=== PATIENT | male | born 1975 | race Caucasian/White ===

== ENCOUNTER 2022-11-24 00:24 | Emergency (ER) | payer SELFPAY ==
--- NOTE | 2022-11-24 00:49 | PC.NURSE ---
pt eloped from the er, uncooperative and anxious , gait steady
--- NOTE | 2022-11-24 00:55 | ED.ANXIETY ---
HPI - Anxiety General Chief Complaint: Anxiety Stated Complaint: Anxiety Time Seen by Provider: 11/24/22 00:55 Source: patient Mode of arrival: EMS History of Present Illness HPI narrative: 47-year-old male who presents via EMS with anxiety and distress regarding the loss of his service dog. He otherwise denies any other complaints such as fever, chills, SI/HI, GI or symptoms. Review of Systems Review of Systems: Pertinent positives and negatives as stated in HPI PMFSH Past Medical History Source: nursing notes reviewed Social History Social History Advance Directives: No Advance Directives Information Provided: No Physical Exam Vital Signs: Vital Signs: VITAL SIGNS: Reviewed. GENERAL: Well developed, well nourished, in no acute distress. HEAD: Normocephalic/atraumatic EYES: PERRLA, EOMI LUNGS: CTAB CARDIOVASCULAR: Regular rate and rhythm ABDOMEN: Soft, non-tender, non-distended with bowel sounds NEUROLOGIC: Alert and oriented x 4. Strength and sensation to light touch were grossly intact x 4. Medical Decision Making Medical Decision Making MDM Narrative: 47-year-old male presents with anxiety due to loss of his service animal. Patient wishes to go outside off campus since smoke a cigarette, he was informed that he would be unable to simply return to the emergency room and was offered a nicotine patch which he declined and stated that he was discharging himself. He has not had any SI/HI and otherwise appears to be ambulating without difficulty and no acute findings to suggest airway/breathing/cardio problems. Differential Diagnosis Please see the discussion above Discharge Plan Discharge Clinical Impression: Anxiety Patient Disposition: Elopement Interventions: ED Discharge Assessment Last Done: 11/24/22 00:52
== END 2022-11-24 01:01 | disposition left against medical advice (07) ==
PROVIDERS: Emergency Provider Student in an Organized Health Care Education/Training Program
DX: F41.1 Generalized anxiety disorder (principal)

== ENCOUNTER 2023-04-04 20:48 | Emergency (ER) | payer OTHER, SELFPAY ==
--- NOTE | 2023-04-04 21:19 | ED.ALCOHOL ---
HPI - Alcohol General Chief Complaint: ETOH/Substance Use Stated Complaint: etoh, calm, per ems Time Seen by Provider: 04/04/23 21:18 Source: EMS and police Mode of arrival: EMS Limitations: altered mental status History of Present Illness HPI narrative: according to EMS and police patient with agitation trying to hurt people and himself complaint: alcohol intoxication Last drink: Hours (ago) Related Data Allergies Allergy/AdvReac Type Severity Reaction Status Date / Time No Known Allergies Allergy Verified 04/04/23 21:31 Review of Systems Review of Systems: Yes Unobtainable due to mental status [facility], [facility] Social History Social History Advance Directives: No Advance Directives Information Provided: Yes Physical Exam ED Vital Signs: Vital Signs - 24 hr 04/04/23 21:31 04/04/23 23:43 04/05/23 01:43 Temperature 98.2 F Pulse Rate 84 84 97 Respiratory Rate 18 19 16 Blood Pressure 127/67 102/62 131/81 Pulse Oximetry 94 97 96 Oxygen Delivery Method Room Air Room Air Room Air 04/05/23 04:13 04/05/23 05:43 Temperature Pulse Rate 89 94 Respiratory Rate 16 15 Blood Pressure 126/83 115/70 Pulse Oximetry 96 96 Oxygen Delivery Method Room Air Room Air BMI result Body Mass Index 31.3 Const Other: agitated trying to punch staff and police and EMS Nutritional Appearance: average body habitus Limitations: altered mental status HENMT Head: Yes normal to inspection Ears: external ears normal General nose exam: Normal external nose present Mouth: Normal oral and palatal mucosa present and oropharynx normal Throat: Yes posterior oropharynx normal Eyes General: appearance normal, both eyes and all related structures Neck Neck: Yes normal visual inspection Chest Chest palpation & inspection: normal inspection of the chest Resp Auscultation: clear to auscultation bilaterally Cardio Jugular venous distension: no JVD Rate: regular rate Rhythm: regular rhythm Heart sounds: S1 normal heart sound present and S2 normal heart sound present GI Inspection: Yes normal to inspection Palpation (GI): Soft to palpation, nontender and No hepatosplenomegaly present Auscultation: normal bowel sounds General: Yes no CVA tenderness Back/Spine/Pelvis Back: no CVA tenderness Skin General skin exam: no rashes or lesions noted Neuro Cranial nerves: Yes CN's II-XII intact bilaterally Motor exam (neuro): 5/5 motor strength present throughout Extrem General: Yes normal to inspection Psych Other: very agitated Course Reevaluation(s) Reevaluation #1: still awaiting for patient to wake up Time: 07:29 Reevaluation #2: physician observation started at 7:30. patient needs time see if he capo up and is not voilent. Currently sleeping Time: 07:30 Medical Decision Making Differential Diagnosis Differential Diagnoses: The differential diagnosis associated with the presentation includes (polysubstance abuse, alcohol intoxication, bipolar disorder were all considered) Admission/Observation Consideration of admission/observation: Escalation of care including admission/observation considered (upon arrival this patient brought in by police and ems was considered for admission) Lab Data MDM Lab Attestation statement: I reviewed the patient's lab results. (Alcohol of 388 was noted) 04/04/23 22:10 04/04/23 22:10 Labs: Lab Results 04/04/23 04/04/23 Range/Units 22:10 22:10 WBC 8.0 (4.8-10.8) X10*3/uL RBC 4.28 L (4.60-5.80) X10*6/uL Hgb 14.3 (14.0-18.0) g/dl Hct 41.8 L (42.0-52.0) % MCV 97.7 (80.0-98.0) fL MCH 33.4 H (27.0-33.0) pg MCHC 34.2 (31.0-36.0) g/dl RDW 12.1 (11.0-16.0) % Plt Count 248 (160-400) X10*3/uL MPV 9.2 L (9.4-12.4) fL Immature Gran % (Auto) 0.2 (0.0-0.4) % Neut % (Auto) 71.3 (45-73) % Lymph % (Auto) 20.9 (20-40) % [place] % (Auto) 6.6 (2-11) % Eos % (Auto) 0.6 (0-4) % Baso % (Auto) 0.4 (0-2) % Lymph # (Auto) 1.7 (1.2-4.9) X10*3/uL [place] # (Auto) 0.5 (0.1-1.2) X10*3/uL Eos # (Auto) 0.1 (0.0-0.4) X10*3/uL Baso # (Auto) 0.0 (0.0-0.2) X10*3/uL Abs Immat Gran (auto) 0.02 (0.00-0.03) X10*3/uL Absolute Neuts (auto) 5.7 (2.0-8.3) x10*3/uL Absolute Nucleated RBC 0.000 (0.0-0.012) X10*3/uL Nucleated RBC % (auto) 0.0 (0.0-0.2) /100WBC Sodium 141 (135-145) mmol/L Potassium 3.5 (3.3-5.1) mmol/L Chloride 107 (96-108) mmol/L Carbon Dioxide 21 L (22-29) mmol/L Anion Gap 17 (12-20) BUN 19 H (9-16) mg/dL Creatinine 0.86 (0.5-1.4) mg/dL Estim Creat Clear Calc 110.3 Estimated GFR > 60 Random Glucose 110 (60-115) mg/dL Calcium 9.0 (8.4-10.2) mg/dL Total Bilirubin 0.3 (0.0-1.0) mg/dL AST 19 (5-37) U/L ALT 20 (0-40) U/L Alkaline Phosphatase 74 (39-117) U/L Total Protein 6.7 (6.5-8.0) g/dL Albumin 4.2 (3.5-5.0) g/dL Ethyl Alcohol 388 H* mg/dL Independent Historian Clinical information obtained from an independent historian. History obtained from or confirmed by: EMS and Other Tests considered The following testing was considered but not selected: A head Ct was considered but patient had no evidence of trauma Chronic Conditions Patient?s care impacted by: Other (alcoholism) Medications Administered Discontinued Medications Generic Name Dose Route Start Last Admin Trade Name Freq PRN Reason Stop Dose Admin Diphenhydramine HCl 25 mg 04/04/23 21:19 04/04/23 21:25 Diphenhydramine Hcl 50 Mg/Ml Vial IM 04/04/23 21:20 25 mg ONCE ONE Administration Haloperidol Lactate 10 mg 07/14/23 21:19 04/04/23 21:25 Haloperidol Lactate 5 Mg/Ml Vial IM 04/04/23 21:20 10 mg STAT STA Administration Lorazepam 2 mg 04/04/23 21:19 04/04/23 21:25 Lorazepam 2 Mg/Ml Vial IM 04/04/23 21:20 2 mg STAT STA Administration Discharge Plan Discharge Clinical Impression: Alcoholic intoxication, Agitation Patient Disposition: Still a Patient
[2023-04-04] MEDS: LORazepam 2 MG/ML VIAL IM (21:25)
[2023-04-04] MEDS: diphenhydrAMINE HCL 50 MG/ML VIAL 25 MG IM (21:25)
[2023-04-04] MEDS: Haloperidol Lactate 5 MG/ML VIAL 10 MG IM (21:25)
[2023-04-04 21:31] VITALS: BP 111/89; BP 127/67; PULSE 84; RESP 18; TEMP 36.8; O2SAT 94; BMI 31.3
[2023-04-04 22:18] LABS: MANUAL DIFF FLAG NO
[2023-04-04 22:19] LABS: Basophils Percent Auto 0.4 % (0-2); Eosinophils Absolute Auto 0.1 X10*3/uL (0.0-0.4); Eosinophils Percent Auto 0.6 % (0-4); Hematocrit 41.8 % (42.0-52.0); Hemoglobin 14.3 g/dl (14.0-18.0); Imm Gran Abs Auto 0.02 X10*3/uL (0.00-0.03); Imm Gran Pct Auto 0.2 % (0.0-0.4); Lymphocytes Absolute Auto 1.7 X10*3/uL (1.2-4.9); Lymphocytes Percent Auto 20.9 % (20-40); Mean Corpuscular HGB Conc 34.2 g/dl (31.0-36.0); Mean Corpuscular Hemoglobin 33.4 pg (27.0-33.0); Mean Corpuscular Volume 97.7 fL (80.0-98.0); Mean Platelet Volume 9.2 fL (9.4-12.4); Monocytes Absolute Auto 0.5 X10*3/uL (0.1-1.2); Monocytes Percent Auto 6.6 % (2-11); Neutrophils Absolute Auto 5.7 x10*3/uL (2.0-8.3); Neutrophils Percent Auto 71.3 % (45-73); Platelet Count 248 X10*3/uL (160-400); Red Blood Count 4.28 X10*6/uL (4.60-5.80); Red Cell Distribution Width 12.1 % (11.0-16.0)
[2023-04-04 22:33] LABS: Alanine Aminotransferase 20 U/L (0-40); Albumin Level 4.2 g/dL (3.5-5.0); Alkaline Phosphatase 74 U/L (39-117); Anion Gap 17 (12-20); Aspartate Amino Transferase 19 U/L (5-37); Bilirubin Total 0.3 mg/dL (0.0-1.0); Blood Urea Nitrogen 19 mg/dL (9-16); Carbon Dioxide 21 mmol/L (22-29); Chloride 107 mmol/L (96-108); Creatinine Clr Calc Pharmacy 110.3; Estimated Glomerular Filt Rate > 60; Glucose Random 110 mg/dL (60-115); Potassium 3.5 mmol/L (3.3-5.1); Sodium 141 mmol/L (135-145); Total Protein 6.7 g/dL (6.5-8.0)
--- NOTE | 2023-04-04 23:15 | PC.NURSE ---
this rn assumed care of pt from 22h bed @ 2300. pt found to be 85% RA. pt arousable to sternal rub. [employer] at bedside. pt placed on laboratory monitor, spo2 monitor. vss.
[2023-04-04 23:43] VITALS: BP 102/62; PULSE 84; RESP 19; O2SAT 97
[2023-04-05 01:43] VITALS: BP 131/81; PULSE 97; RESP 16; O2SAT 96
[2023-04-05 04:13] VITALS: BP 126/83; PULSE 89; RESP 16; O2SAT 96
[2023-04-05 05:43] VITALS: BP 115/70; PULSE 94; RESP 15; O2SAT 96
[2023-04-05 06:11] LABS: Ethanol 388 mg/dL
--- NOTE | 2023-04-05 06:46 | PC.NURSE ---
pt incontinent of urine. bed linens changed. pt remains in police custody. pt arousable to name
--- NOTE | 2023-04-05 06:54 | PC.NURSE ---
pt belongings remain at bedside. okay per fire extinguisher charger and pd at bedside. pt remains in ligature free hospital attire
--- NOTE | 2023-04-05 09:15 | PC.NURSE ---
Pt awaken, remains sleepy but awakes easily. Ambulated by this RN and unsteady on feet. Snacks given. [employer] at bedside. Radha DAVILA aware.
[2023-04-05 10:05] VITALS: BP 109/64; PULSE 99; RESP 18; TEMP 36.8; O2SAT 95
--- NOTE | 2023-04-05 11:05 | PC.NURSE ---
Pt ambulated for third time, now steady on feet.
== END 2023-04-05 11:25 | disposition home or self-care (01) ==
PROVIDERS: Emergency Provider Emergency Medicine
DX: F10.129 Alcohol abuse with intoxication, unspecified (principal); Y90.8 Blood alcohol level of 240 mg/100 ml or more; R45.1 Restlessness and agitation; Z79.899 Other long term (current) drug therapy
CPT/HCPCS: 36415; 80053; 80307; 85025; 96372; 99283; 99285; J1200; J2060

== ENCOUNTER 2024-08-25 16:53 | Emergency (ER) | payer OTHER, SELFPAY ==
[2024-08-25 16:58] VITALS: BP 163/97; PULSE 122; RESP 20; TEMP 37.7; O2SAT 96; BMI 29.0
--- NOTE | 2024-08-25 17:00 | PC.NURSE ---
called audelia rn for a bed for this patient because the statements about SI in triage where not clear, pt also appears intoxicated, pt did denied drinking today, no room in the pod at this time, pt was walked over to nurses station for request for the bed, pt attempting to walk out of the triage room x2 but redirected
--- NOTE | 2024-08-25 17:28 | ED.GENADULT ---
HPI - General Adult General Chief complaint: ETOH/Substance Use Stated complaint: Bleeding in left pinky Time Seen by Provider: 08/25/24 17:19 Source: patient, RN notes reviewed and old records reviewed Mode of arrival: ambulatory Limitations: other (Uncooperative) History of Present Illness ED Provider: Torin HPI narrative: Was asked to evaluate the patient as he was trying to leave the department shortly after arriving. He presents to triage complaining of wounds to his left 2nd and 5th fingers. He reports that he intentionally cut his fingers ?to honor my father who I disrespected. He admits to drinking alcohol The patient is demanding to leave because ?I got two Band-Aids and I am good now. ? I asked the patient directly if he had any thoughts of harming himself further and he reported ?negative. The patient is ambulating with a steady, even gait. He reports if discharge he will walk home He has no somatic complaints at this time He did allow me to remove the bandage to evaluate his finger wounds Related Data Allergies Allergy/AdvReac Type Severity Reaction Status Date / Time No Known Allergies Allergy Verified 08/25/24 17:06 Review of Systems Constitutional: Constitutional: Denies chills, Denies fever(s) and Denies headache(s) Eyes: Eyes: Denies blurry vision ENT: Denies headache(s) Cardiovascular: Cardiovascular: Denies chest pain and Denies dyspnea Respiratory: Respiratory: Denies cough and Denies dyspnea Integumentary/Breasts: Skin/Breast: Reports wounds Neurologic: Denies headache(s) Psychiatric: Psychiatric: Denies homicidal ideation and Denies suicidal ideation PMFSH Social History Social History Advance Directives: No Advance Directives Information Provided: No Do you have a plan to hurt others: No Plan Physical Exam ED Vital Signs: Vital Signs - 24 hr 08/25/24 16:58 Temperature 99.8 F Pulse Rate 122 H Respiratory Rate 20 Blood Pressure 163/97 H Pulse Oximetry 96 Oxygen Delivery Method Room Air BMI result Body Mass Index 29.0 Const General: healthy appearing, comfortable, no acute distress, alert and awake Nutritional Appearance: well nourished Orientation/consciousness: patient oriented x3 HENMT Head: Yes normocephalic and Yes atraumatic Eyes Eyelids: Yes eyelids normal Conjunctivae: conjunctivae normal Sclerae: sclerae normal Corneas: corneas normal Pupils: Equal, round and reactive pupils present EOM: EOMs intact bilaterally Neck Neck: Yes full ROM Resp Effort & Inspection: normal respiratory effort, able to speak in complete sentences and not labored Skin Other: Patient has a very small/superficial linear wound on the radial side of his left 2nd finger. This is less than 1 cm, not actively bleeding, it is barely visible. He has a similar very superficial, small, linear wound to the dorsal surface of the left 5th finger. Again, no active bleeding General skin exam: elasticity normal Neuro General: patient oriented x3 Cranial nerves: Yes Equal, round and reactive pupils present and Yes Bilaterally intact EOM present Cognition (Neuro): normal cognition Extrem Other: Moving all extremities well without any obvious deformities Course Course Course Narrative: This is an RME done by LOLA Roach: Additional HPI, ROS, PE not included below will be deferred to primary provider. 49 year old male presents after cutting himself with a knife told nurse he was not suicidal at the moment but he was a few minutes ago. He denies drinking alcohol but appears to be under the influence. No HI. Patient with very bizarre affect and tangential speech. Trying to run out of the triage room all of a sudden then coming back in. Appears to be responding to internal stimuli. Reached out to the behavioral health nurse unfortunately no room in the behavioral pod at this time. Charge nurse aware and place patient in bed 22 [address]. Providers in the back aware of patient's situation. Main ED provider to take over care. Medical Decision Making Medical Decision Making MDM Narrative: 49-year-old male presents for evaluation of reported wound to his left 2nd and 5th finger. He essentially has a paper cut to each finger, no deep wounds or lacerations, no active bleeding. The patient reports that he did this because he ?this honored his father. ? He reports that this was a [place] custom to regain honor. He reports that he has no further intent to harm himself in any way, he is not suicidal. He was requesting discharge and I do not see any reason to keep him against his will. The patient is ambulating appropriately, he is answering questions appropriately. Differential Diagnosis Differential Diagnoses: The differential diagnosis associated with the presentation includes Laceration Abrasion Wound Self-harm Discharge Plan Discharge Clinical Impression: Alcoholic intoxication Patient Disposition: Home, Self-Care Instructions: Abuse of Alcohol (ED) Additional Instructions: Your finger wounds do not need any closure Avoid excessive consumption of alcohol Return if you have any thoughts of harming herself or anybody else Print Language: [place] Islander
--- NOTE | 2024-08-25 17:50 | PC.NURSE ---
pt seen by provider, pt denied SI/HI at this time, provider feels pt is safe for discharge. lac to finger evaled. pt initially requesting blood work to show his child support officer but later elected to leave without blood work. ambulated out of ED with a steady gait, declined to wait for discharge paperwork.
[2024-08-25 17:51] VITALS: BP 163/97; PULSE 122; RESP 20; TEMP 37.7; O2SAT 96
--- OUTSIDE RECORDS SUMMARY | 2024-08-31 21:06 | XMS_ITS | Continuity of Care Document ---
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 It does not include entries that were removed or entered in error. Problem Status Onset Date Problem Type Date of Resolution Comments Source Asthma (SNOMED [place] 600974013) Active 014 Condition [facility] Left knee pain (SNOMED CT 349110203629333) Active 014 Condition Jul 14, 2024 Entered By: DARLENE REEVES Comment: vet has had two prior surgeries left knee/ likely signif DJD [facility] substance use disorders Active Condition DoD Patient Education Dietary Inactive Condition DoD nicotine dependence Active Condition Do[facility] alcohol dependence (alcoholism) Active Condition DoD Tuberculin PPD Nonspecific Reaction Without Active Tuberculosis Active Condition DoD visit for: services physical Inactive Condition DoD nicotine dependence continuous Active Condition DoD alcohol dependence with episodic drinking behavior Active Condition 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 No mass or lump detected to indicate feeder vessel. Present for at least 2 years with no change. 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 Rx Mrx with 1.5 pd BI OU. RTC if problems with glasses. Recommend wear glasses for reading to aid convergence. DoD astigmatism regular Active Condition DoD refractive error - myopia Active Condition glasses ordered with prism. Rx given. RTC if problems persist. DoD Need For Vaccination Against Td Inactive Condition DoD Need For Vaccination Hepatitis B Inactive Condition DoD Need For Vaccination Typhoid Inactive Condition DoD Patient Counseling: Inactive Condition Plan:1) Pt Educated about TB infection vs Active TB Dz2) Pt advised to f/u annually w/ preventive med. 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 sandy tx well DoD muscle spasm Active Condition DoD dermatomycosis tinea versicolor Active Condition DoD backache Inactive Condition DoD asthma mild intermittent Active Condition DoD wheezing [as a symptom] Active Condition 1. Prescription for albuterol inhaler p.r.n. was issued.2. Patient was given a peak flow meter to monitor his respiratory status. He was instructed in use and he was given a plan of action based on green, yellow and red indications on his peak flow met [facility] Blood Pressure Isolated Elevated Inactive Condition [facility] visit for: screening exam Inactive Condition [facility] Acute back pain - lumbar Active Condition [facility] [place] [facility] Alcohol abuse Active Condition Nov Entered By: KOLBY SCHWARZ Comment: Rehab x 2 [facility] Alcohol dependence Active Condition [facility] Asthma Active Condition [facility] Bipolar disorder Active Condition [facility] Bipolar II disorder Active Condition [facility] Bipolar II disorder, most recent episode hypomanic Active Condition [facility] Cannabis dependence Active Condition [facility] [place] [facility] Exposure to potentially hazardous substance Active Condition Nov 12, 2023 Entered By: TESS SMALLWOOD Comment: Original PORTIA Screen completed on 09/02/22 [facility] [place] [facility] Exposure to Potentially Hazardous Substance ([facility] [id number]) Active Condition [facility] Family history of malignant neoplasm of colon over age 50 Active Condition Jul 14, 2024 Entered By: DARLENE REEVES Comment: FH of colon cancer in Father, father alive age 77 in 2023 [facility] [place] [facility] Gastroesophageal reflux disease Active Condition [facility] HLD - Hyperlipidemia Active Condition [facility] Homeless Active Condition [facility] [place] [facility] HTN-Hypertension (SCT 27992672) Active Condition [facility] Hyperlipidemia (SCT 57050002) Active Condition [facility] Hypertension Active Condition Jul 14, 2024 Entered By: DARLENE REEVES Comment: vet resumed using amlodipine 5/ BP at home improving [facility] Inguinal hernia Active Condition Jun 09, 2024 Entered By: DARLENE REEVES Comment: vet had CT confirming left inguinal hernia February 2023 [facility] Lack of Housing (ICD-9-CM V60.0) Active Condition [facility]) Nicotine dependence Active Condition [facility] Pain in left knee (SNOMED CT [id number]) Active Condition Nov 27 8 Entered By: KOLBY SCHWARZ Comment: Arthroscopic surgeries x 2 [facility] Positive PPD Active Condition Sep 02, 2022 Entered By: FABRICIO PRINCE Comment: Status post 1 year of treatment with tb meds [facility] Schizoaffective disorder, bipolar type Active Condition [facility] Severe alcohol dependence Active Condition [facility] Tinea unguium Active Condition [facility] Depression Inactive Condition 08/27/2018 [facility] Diagnosis: ICD-10-CM L60.3 Nail dystrophy Active Diagnosis [facility] Diagnosis: ICD-10-CM F25.0 Schizoaffective disorder, bipolar type Active Diagnosis [facility] Diagnosis: ICD-10-CM I10 Essential (primary) hypertension Active Diagnosis [facility] Diagnosis: ICD-10-CM Z71.89 Other specified counseling Active Diagnosis [facility] Diagnosis: ICD-10-CM M25.562 Pain in left knee Active Diagnosis [facility] Diagnosis: ICD-10-CM M54.59 Other low back pain Active Diagnosis [facility] Diagnosis: ICD-10-CM F10.24 Alcohol dependence with alcohol-induced mood disorder Active Diagnosis [facility] Diagnosis: ICD-10-CM Z65.3 Problems related to other legal circumstances Active Diagnosis [facility] Diagnosis: ICD-10-CM Z46.0 Encounter for fit/adjst of spectacles and contact lenses Active Diagnosis [facility] [place] [facility] Diagnosis: ICD-10-CM H25.013 Cortical age-related cataract, bilateral Active Diagnosis [facility] UBALDO RANGEL [facility] Diagnosis: ICD-10-CM J45.998 Other asthma Active Diagnosis [facility] Diagnosis: ICD-10-CM Z59.01 Sheltered homelessness Active Diagnosis [facility] PHILIPN CHELSEAYARY [facility] Diagnosis: ICD-10-CM F12.20 Cannabis dependence, uncomplicated Active Diagnosis [facility] Diagnosis: ICD-10-CM F31.9 Bipolar disorder, unspecified Active Diagnosis [facility] Diagnosis: ICD-10-CM Z13.6 Encounter for screening for cardiovascular disorders Active Diagnosis [facility] Diagnosis: ICD-10-CM K40.91 Unilateral inguinal hernia, w/o obst or gangrene, recurrent Active Diagnosis [facility] Diagnosis: ICD-10-CM K45.8 Oth abdominal hernia without obstruction or gangrene Active Diagnosis [facility] Diagnosis: ICD-10-CM K08.9 Disorder of teeth and supporting structures, unspecified Active Diagnosis [facility] Medications Combined list of outpatient medications from Department of Defense and [facility] Affairs facilities.Medications provided include 1) outpatient medications from the last 15 months, and 2) patient-reported medications. Medication Details Route Status Patient Instructions Prescription Expires Prescription Number Last Dispense Date Ordering Provider Order Date Order Qty Source ACETAMINOPH EN 500MG TAB TAKE TWO TABLETS BY MOUTH TWICE DAILY NEEDED ORAL ACTIVE 06/10/2025 [id number] AMELIA HARTLEY 2023 [facility] ACETAMINOPH EN 500MG TAB TAKE TWO TABLETS BY MOUTH TWICE DAILY NEEDED ORAL DISCONT INUED 04/01/2024 [id number] 4 DESIRAE PEREZ 2022 60 [facility] [place] [facility] ALBUTEROL 90MCG/ACTUA T (CFC-F) INHL,ORAL,8 .5GM DOSE COUNTER INHALE 2 PUFFS BY MOUTH FOUR TIMES DAILY NEEDED RESPIR ATORY (INHAL ATION) ACTIVE 06/10/2025 [id number] AMELIA HARTLEY 2023 3 [facility] ALBUTEROL 90MCG/ACTUA T (CFC-F) INHL,ORAL,8 .5GM DOSE COUNTER INHALE 2 PUFFS BY MOUTH FOUR TIMES DAILY NEEDED FOR BRONCHOS PASM RESPIR ATORY (INHAL ATION) DISCONT INUED (EDIT) 06/19/2024 [id number] RA SARAY LOWRY 2022 3 [facility] AMLODIPINE BESYLATE 5MG TAB TAKE ONE TABLET BY MOUTH ONCE DAILY FOR BLOOD PRESSURE /HEART, DO NOT TAKE WITH GRAPEFRU IT JUICE ORAL ACTIVE 06/10/2025 [id number] 4 AMELIA HARTLEY 2023 90 [facility] INDOMETHACI N 50MG CAP TAKE ONE CAPSULE BY MOUTH TWICE DAILY NEEDED FOR GOUT ORAL ACTIVE 07/02/2025 [id number] 4 AMELIA HARTLEY 2023 60 [facility] LIDOCAINE 5% PATCH APPLY 1 PATCH TOPICALL Y ONCE DAILY FOR NERVE PAIN (LEAVE PATCH ON FOR 12 HOURS, THEN REMOVE PATCH) TOPICA L SUSPEND ED 07/29/2025 [id number] 4 AMELIA HARTLEY 2023 30 [facility] METHOCARBAM OL 750MG TAB TAKE ONE TABLET BY MOUTH THREE TIMES DAILY NEEDED ORAL 04/01/2024 [id number] 4 DESIRAE PEREZ 2022 45 [facility] MULTIVITAMI NS W/MINERALS CAP/TAB TAKE ONE CAP/TAB BY MOUTH ONCE DAILY ORAL ACTIVE 06/10/2025 [id number] 4 AMELIA HARTLEY 2023 100 [facility] OLANZAPINE 5MG TAB TAKE ONE TABLET BY MOUTH AT BEDTIME ORAL DISCONT INUED BY PRINCE R 11/19/2024 [id number] JAMES LONG MD 2023 30 [facility] OLANZAPINE 5MG TAB TAKE ONE TABLET BY MOUTH AT BEDTIME ORAL DISCONT INUED (EDIT) 08/08/2024 [id number] JAMES LONG MD 2022 30 [facility] OLANZAPINE 5MG TAB TAKE ONE TABLET BY MOUTH AT BEDTIME ORAL DISCONT INUED (EDIT) 07/17/2024 [id number] JAMES LONG MD 2022 30 [facility] OMEPRAZOLE 20MG CAP,EC TAKE 1 CAPSULE BY MOUTH EVERY MORNING 30 MINUTES BEFORE BREAKFAS T ORAL ACTIVE AMELIA HARTLEY 2023 [facility] QUETIAPINE FUMARATE 100MG TAB TAKE ONE TABLET BY MOUTH AT BEDTIME AND TAKE ONE TABLET AT BEDTIME NEEDED AND TAKE ONE TABLET AT BEDTIME NEEDED SCHIZOAF FECTIVE BIPOLAR/ SLEEP ORAL ACTIVE 07/29/2025 [id number] 4 JAMES LONG MD 2023 90 [facility] QUETIAPINE FUMARATE 100MG TAB TAKE ONE TABLET BY MOUTH AT BEDTIME AND TAKE ONE TABLET AT BEDTIME NEEDED AND TAKE ONE TABLET AT BEDTIME NEEDED SCHIZOAF FECTIVE BIPOLAR/ SLEEP ORAL DISCONT INUED (EDIT) 06/18/2025 [id number] JAMES LONG MD 2023 90 [facility] TRAZODONE HCL 100MG TAB TAKE ONE TABLET BY MOUTH AT BEDTIME AND TAKE ONE-HALF TABLET AT BEDTIME NEEDED SLEEP ORAL ACTIVE 07/29/2025 [id number] JAMES LONG MD 2023 45 [facility] TRAZODONE HCL 100MG TAB TAKE ONE TABLET BY MOUTH AT BEDTIME AND TAKE ONE-HALF TABLET AT BEDTIME NEEDED SLEEP ORAL DISCONT INUED (EDIT) 06/18/2025 [id number] 4 JAMES LONG MD 2023 45 [facility] [place] [facility] Allergies, Adverse Reactions, Alerts Combined list of allergies from Department of Defense and Veterans Affairs facilities. It does not include entries that were removed or entered in error. Substance Category Reaction Severity Reaction type Status Date Reported Comments Source CATS Propensity to adverse reaction (finding) active 3 [facility] CATS Propensity to adverse reaction (finding) Urticaria active [address] [facility] No Known Allergies Drug allergy (disorder) active 7 [place] TUBERCULIN, PURIFIED PROTEIN DERIVATIVE Propensity to adverse reactions to drug (finding) Eruption active [address] [facility] Immunizations Combined list of available immunizations from the Department of Defense and Veterans Affairs facilities. 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 Status Comments Source INFLUENZA, SPLIT VIRUS, TRIVALENT, PF 2023 RACHEL VALENCIA LEFT DELTO ID [id number] 140 complet ed [facility] [place] [facility] COVID-19 (MODERNA), MRNA, LNP-S, PF, 100 MCG/0.5ML DOSE OR 50 MCG/0.25ML DOSE 1 2021 NEMO ANDREW LEFT DELTO ID [id number] 207 complet ed [facility] [place] [facility] TDAP 2017 115 complet ed [facility] FLU,3 YRS (HISTORICAL) 2015 88 complet ed Site: Left Deltoid [facility] [place] [facility] PNEUMOCOCCAL POLYSACCHARID E PPV23 2015 33 complet ed [facility] [place] [facility] DTAP, UNSPECIFIED FORMULATION 2013 107 complet ed Site: Right Deltoid [facility] [place] [facility] FLU,3 YRS (HISTORICAL) 2013 88 complet ed Site: Right Deltoid [facility] [place] [facility] tetanus and diphtheria toxoids, adsorbed, preservative free, for adult use (2 Lf of tetanus toxoid and 2 Lf of diphtheria toxoid) 1 2006 UNKNOWN 09 Unknown (UNK) comple t ed tetanus and diphtheri a toxoids, adsorbed, preservat yinka free, for adult use (2 Lf of tetanus toxoid and 2 Lf of diphtheri a toxoid) DoD hepatitis B vaccine, adult dosage 2 2006 DIANA RACHEL [id number] Merck (MSD) complet ed hepatitis B vaccine, adult dosage DoD influenza virus vaccine, split virus (incl. purified surface antigen)-reti red CODE 0 2005 Unknown, Provider [id number] [employer] ([facility]) complet ed influenza virus vaccine, split virus (incl. purified surface antigen)- retired CODE DoD hepatitis B vaccine, adult dosage 1 2005 DIANA RACHEL [id number] Merck (MSD) complet ed hepatitis B vaccine, adult dosage DoD hepatitis B vaccine, adult dosage 1 2005 Unknown, Provider UNKNOWN 43 Unknown (UNK) complet ed hepatitis B vaccine, adult dosage DoD typhoid Vi capsular polysaccharid e vaccine 1 2005 MILAGRO SINGLETON [id number] Sanofi Pasteur ([facility]) complet ed typhoid Vi capsular polysacch aride vaccine DoD influenza virus vaccine, split virus (incl. purified surface antigen)-reti red CODE 1 2002 Unknown, Provider UNKNOWN 15 Unknown (UNK) complet ed influenza virus vaccine, split virus (incl. purified surface antigen)- retired CODE DoD influenza virus vaccine, split virus (incl. purified surface antigen)-reti red CODE 0 2000 Unknown, Provider UNKNOWN 15 Unknown (UNK) complet ed influenza virus vaccine, split virus (incl. purified surface antigen)- retired CODE DoD influenza virus vaccine, split virus (incl. purified surface antigen)-reti red CODE 1 1999 Unknown, Provider [id number] 15 Maida (ROSA) complet ed influenza virus vaccine, split virus (incl. purified surface antigen)- retired CODE DoD influenza virus vaccine, split virus (incl. purified surface antigen)-reti red CODE 0 1999 Unknown, Provider UNKNOWN 15 Unknown (UNK) complet ed influenza virus vaccine, split virus (incl. purified surface antigen)- retired CODE DoD influenza virus vaccine, split virus (incl. purified surface antigen)-reti red CODE 0 1998 Unknown, Provider UNKNOWN 15 Unknown (UNK) complet ed influenza virus vaccine, split virus (incl. purified surface antigen)- retired CODE DoD hepatitis A vaccine, adult dosage 2 1997 Unknown, Provider UNKNOWN 52 Unknown (UNK) complet ed hepatitis A vaccine, adult dosage DoD hepatitis A vaccine, adult dosage 2 1997 Unknown, Provider UNKNOWN 52 Unknown (UNK) complet ed hepatitis A vaccine, adult dosage DoD typhoid vaccine, parenteral, other than acetone-kille d, dried 0 1996 Unknown, Provider UNKNOWN 41 Unknown (UNK) complet ed typhoid vaccine, parentera l, other than acetone-k illed, dried DoD typhoid Vi capsular polysaccharid e vaccine 1 1996 Unknown, Provider UNKNOWN 101 Unknown (UNK) complet ed typhoid Vi capsular polysacch aride vaccine DoD trivalent poliovirus vaccine, live, oral 1 1996 Unknown, Provider UNKNOWN 02 Unknown (UNK) complet ed trivalent polioviru s vaccine, live, oral DoD measles, mumps and rubella virus vaccine 0 1996 Unknown, Provider UNKNOWN 03 Unknown (UNK) complet ed measles, mumps and rubella virus vaccine DoD tetanus and diphtheria toxoids, adsorbed, preservative free, for adult use (2 Lf of tetanus toxoid and 2 Lf of diphtheria toxoid) 0 1996 Unknown, Provider UNKNOWN 09 Unknown (UNK) complet ed tetanus and diphtheri a toxoids, adsorbed, preservat yinka free, for adult use (2 Lf of tetanus toxoid and 2 Lf of diphtheri a toxoid) DoD yellow fever vaccine 0 1996 Unknown, Provider UNKNOWN 37 Unknown (UNK) complet ed yellow fever vaccine DoD hepatitis A vaccine, adult dosage 1 1996 Unknown, Provider UNKNOWN 52 Unknown (UNK) complet ed hepatitis A vaccine, adult dosage DoD adenovirus vaccine, unspecified formulation 1 1996 Unknown, Provider UNKNOWN 82 Unknown (UNK) complet ed adenoviru s vaccine, unspecifi ed formulati on DoD Results Combined list of recent chemistry, hematology and other laboratory results from Department of Defense and Veterans Affairs, ranging from 15 months to all on record, depending upon the facility. Order Name Results Value Reference Range Date Interpretation Specimen Comments Source LIPID PANEL FASTING CHOLESTERO L [MASS/VOLU ME] IN SERUM OR PLASMA 251 mg/dL 07/06 H Specimen Type: SERUM No comment entered. Ordering Provider: SINA LONG MD Report Released Date/Time: Jun 17, 2024 02:14 PM Reporting Lab: [facility] [place] [facility] [address] [facility] [address] Performing Lab: [facility] [place] [facility] [address] [facility] [address] [facility] [place] [facility] LIPID PANEL FASTING TRIGLYCERI DE [MASS/VOLU ME] IN SERUM OR PLASMA 70 mg/dL 0 - 150 07/06 Specimen Type: SERUM No comment entered. Ordering Provider: SINA LONG MD Report Released Date/Time: Jun 17, 2024 02:14 PM Reporting Lab: [facility] [place] [address] [address] Performing Lab: [facility] [place] [address] [address] [facility] [place] [facility] LIPID PANEL FASTING CHOLESTERO L IN LDL [MASS/VOLU ME] IN SERUM OR PLASMA BY CALCELOYO N 171 mg/dL 0 - 129 07/06 H Specimen Type: SERUM No comment entered. Ordering Provider: SINA LONG MD Report Released Date/Time: Jun 17, 2024 02:14 PM Reporting Lab: [facility] [place] [address] [address] Performing Lab: [facility] [place] [address] [address] [facility] [place] [facility] LIPID PANEL FASTING CHOLESTERO L.TOTAL/CH OLESTEROL IN HDL [MASS RATIO] IN SERUM OR PLASMA 3.8 07/06 Specimen Type: SERUM No comment entered. Ordering Provider: SINA LONG MD Report Released Date/Time: Jun 17, 2024 02:14 PM Reporting Lab: [facility] [place] [address] [address] Performing Lab: [facility] TRN [facility] [address] [facility] [address] [facility] LIPID PANEL FASTING CHOLESTERO L IN HDL [MASS/VOLU ME] IN SERUM OR PLASMA 66 mg/dL 40 - 60 07/06 H Specimen Type: SERUM No comment entered. Ordering Provider: SINA LONG MD Report Released Date/Time: Jun 17, 2024 02:14 PM Reporting Lab: [facility] [address] [facility] [address] Performing Lab: [facility]ITALRL TRN [address] [address] [facility] HOSPITALRLAUREL [facility]ERN [facility]PITALUSE [facility] BASIC METABOLI C PANEL (non-fas ting) UREA NITROGEN [MASS/VOLU ME] IN SERUM OR PLASMA 19 mg/dL 7 - 25 07/06 Specimen Type: SERUM No comment entered. Ordering Provider: OPAL RAZO Report Released Date/Time: Jul 01, 2024 03:56 PM Reporting Lab: [facility]ITAL[facility] TRN [facility]ITALUSE[address] [address] Performing Lab: [facility]ITALRL TRN [facility]ITALUSE[address] [address] [facility]ITALRL [facility]N [facility] BASIC METABOLI C PANEL (non-fas ting) GLUCOSE [MASS/VOLU ME] IN SERUM OR PLASMA 90 mg/dL 65 - 100 07/06 Specimen Type: SERUM No comment entered. Ordering Provider: OPAL RAZO Report Released Date/Time: Jul 01, 2024 03:56 PM Reporting Lab: [facility]ITALRL TRN [facility]USE[address] [address] Performing Lab: [facility]ITALRL TRN [facility]ITALUSE[address] [address] [facility]OSPITALRLAUREL [facility]ERN [facility]ITALUSE [facility] BASIC METABOLI C PANEL (non-fas ting) SODIUM [MOLES/VOL UME] IN SERUM OR PLASMA 139 mmol/L 135 - 145 07/06 Specimen Type: SERUM No comment entered. Ordering Provider: OPAL RAZO Report Released Date/Time: Jul 01, 2024 03:56 PM Reporting Lab: [facility]ITALUSETS [address] [address] Performing Lab: [facility]ITAL[facility]ETS [address] [address] [facility] BASIC METABOLI C PANEL (non-fas ting) POTASSIUM [MOLES/VOL UME] IN SERUM OR PLASMA 4.8 mmol/L 3.5 - 5.0 07/06 Specimen Type: SERUM No comment entered. Ordering Provider: OPAL RAZO Report Released Date/Time: Jul 01, 2024 03:56 PM Reporting Lab: [facility]ITALUSETS [address] [address] Performing Lab: [facility]ITALUSE[address] [address] [facility]ITALRL WSTRN [facility]PITALUSE [facility] BASIC METABOLI C PANEL (non-fas ting) CHLORIDE [MOLES/VOL UME] IN SERUM OR PLASMA 104 mmol/L 100 - 110 07/06 Specimen Type: SERUM No comment entered. Ordering Provider: OPAL RAZO Report Released Date/Time: Jul 01, 2024 03:56 PM Reporting Lab: [facility] [address] Performing Lab: [facility]ITALUSETS [address] [address] [facility]ITALUSE [facility] BASIC METABOLI C PANEL (non-fas ting) CARBON DIOXIDE, TOTAL [MOLES/VOL UME] IN SERUM OR PLASMA 26 meq/L 20 - 30 07/06 Specimen Type: SERUM No comment entered. Ordering Provider: OPAL RAZO Report Released Date/Time: Jul 01, 2024 03:56 PM Reporting Lab: [facility] [address] Performing Lab: [facility] [place] [address] [place] [address] [facility]OSPITALRL TRN [facility]ITALUSE [facility] BASIC METABOLI C PANEL (non-fas ting) CREATININE [MASS/VOLU ME] IN SERUM OR PLASMA 1.04 mg/dL 0.50 - 1.40 07/06 Specimen Type: SERUM No comment entered. Ordering Provider: OPAL RAZO Report Released Date/Time: Jul 01, 2024 03:56 PM Reporting Lab: [facility]PITALRL TRN [facility]ITALUSED[facility] [address] [facility] [address] Performing Lab: [facility] [address] [facility] [address] [facility] HOSPITALRLAUREL [facility]ERN [facility]OSPITALUSE [facility]' HOSPITAL BASIC METABOLI C PANEL (non-fas ting) GLOMERULAR FILTRATION RATE/1.73 SQ M.PREDICTE D [VOLUME RATE/AREA] IN SERUM, PLASMA OR BLOOD BY CREATININE -BASED FORMULA (CKD-EPI 2020) 87 mL/min 60 07/06 Specimen Type: SERUM No comment entered. Ordering Provider: OPAL RAZO Report Released Date/Time: Jul 01, 2024 03:56 PM Reporting Lab: [facility]OSPITALRLAUREL [facility]ERN [address] [address] Performing Lab: [facility] HOSPITALRL [facility] [address] [address] [facility] CALCIUM CALCIUM [MASS/VOLU ME] IN SERUM OR PLASMA 9.8 mg/dL 8.5 - 10.2 07/06 Specimen Type: SERUM No comment entered. Ordering Provider: OPAL RAZO Report Released Date/Time: Jul 01, 2024 03:56 PM Reporting Lab: [facility] HOSPITALRLAUREL [facility]ENTERN [facility]PITALUSE[address] [address] Performing Lab: [facility] HOSPITALRLAUREL [facility]ENTERN [facility]OSPITALUSE[address] [address] [facility] CBC AND DIFF (AUTO) LEUKOCYTES [#/VOLUME] IN BLOOD BY AUTOMATED COUNT 8.69 10*3/uL 4.50 - 11.00 07/06 Specimen Type: BLOOD No comment entered. Ordering Provider: OPAL RAZO Report Released Date/Time: Jul 01, 2024 03:56 PM Reporting Lab: [facility] [place] [facility] [address] [facility] [address] Performing Lab: [facility] [place] [facility] [address] [facility] [address] [place] [facility] [place] [place] [facility] CBC AND DIFF (AUTO) ERYTHROCYT ES [#/VOLUME] IN BLOOD BY AUTOMATED COUNT 5.01 10*6/uL 4.23 - 5.66 07/06 Specimen Type: BLOOD No comment entered. Ordering Provider: OPAL RAZO Report Released Date/Time: Jul 01, 2024 03:56 PM Reporting Lab: [facility] [place] [address] [address] Performing Lab: [facility] [place] [facility] [address] [facility] [address] [place] [facility] [place] [facility] CBC AND DIFF (AUTO) HEMOGLOBIN [MASS/VOLU ME] IN BLOOD 16.3 g/dL 12.8 - 17 07/06 Specimen Type: BLOOD No comment entered. Ordering Provider: OPAL RAZO Report Released Date/Time: Jul 01, 2024 03:56 PM Reporting Lab: [facility] [place] [address] [address] Performing Lab: [facility] [place] [facility] [address] [facility] [address] [facility] [place] [facility] CBC AND DIFF (AUTO) HEMATOCRIT [VOLUME FRACTION] OF BLOOD BY AUTOMATED COUNT 47.3 39.2 - 50.4 07/06 Specimen Type: BLOOD No comment entered. Ordering Provider: OPAL RAZO Report Released Date/Time: Jul 01, 2024 03:56 PM Reporting Lab: [facility] [place] [address] [address] Performing Lab: [facility] [place] [address] [address] [facility] [place] [facility] CBC AND DIFF (AUTO) MCV [ENTITIC VOLUME] BY AUTOMATED COUNT 94.4 fL 82 - 99 07/06 Specimen Type: BLOOD No comment entered. Ordering Provider: OPAL RAZO Report Released Date/Time: Jul 01, 2024 03:56 PM Reporting Lab: [facility] [place] [facility] [address] [facility] [address] Performing Lab: [facility] [place] [facility] [address] [facility] [address] [facility] [place] [facility] CBC AND DIFF (AUTO) MCHC [MASS/VOLU ME] BY AUTOMATED COUNT 34.5 g/dL 30.8 - 35.1 07/06 Specimen Type: BLOOD No comment entered. Ordering Provider: OPAL RAZO Report Released Date/Time: Jul 01, 2024 03:56 PM Reporting Lab: [facility] [place] [place] [address] [address] Performing Lab: [facility] [place] [address] [address] [facility] [place] [facility] CBC AND DIFF (AUTO) PLATELETS [#/VOLUME] IN BLOOD BY AUTOMATED COUNT 282 10*3/uL 140 - 360 07/06 Specimen Type: BLOOD No comment entered. Ordering Provider: OPAL RAZO Report Released Date/Time: Jul 01, 2024 03:56 PM Reporting Lab: [facility] [place] [address] [address] Performing Lab: [facility] [place] [place] [address] [address] [facility] [place] [facility] CBC AND DIFF (AUTO) ERYTHROCYT E DISTRIBUTI ON WIDTH [RATIO] BY AUTOMATED COUNT 12.7 12.0 - 16.0 07/06 Specimen Type: BLOOD No comment entered. Ordering Provider: OPAL RAZO Report Released Date/Time: Jul 01, 2024 03:56 PM Reporting Lab: [facility] [place] [facility] [address] [facility] [address] Performing Lab: [facility] [place] [facility] [address] [facility] [address] [facility] [place] [facility] CBC AND DIFF (AUTO) MONOCYTES [#/VOLUME] IN BLOOD BY AUTOMATED COUNT 0.49 10*3/uL 0.30 - 1.10 07/06 Specimen Type: BLOOD No comment entered. Ordering Provider: OPAL RAZO Report Released Date/Time: Jul 01, 2024 03:56 PM Reporting Lab: [facility] [facility] [address] [facility] [address] Performing Lab: [facility] [place] [facility] [address] [facility] [address] [facility] [place] [facility] CBC AND DIFF (AUTO) MCH [ENTITIC MASS] BY AUTOMATED COUNT 32.5 pg 26.2 - 32.6 07/06 Specimen Type: BLOOD No comment entered. Ordering Provider: OPAL RAZO Report Released Date/Time: Jul 01, 2024 03:56 PM Reporting Lab: [facility] [place] [address] [address] Performing Lab: [facility] [place] [facility] [address] [facility] [address] [facility] [place] [facility] CBC AND DIFF (AUTO) NEUTROPHIL S/100 LEUKOCYTES IN BLOOD BY AUTOMATED COUNT 70.3 43.7 - 75.8 07/06 Specimen Type: BLOOD No comment entered. Ordering Provider: OPAL RAZO Report Released Date/Time: Jul 01, 2024 03:56 PM Reporting Lab: [facility] [place] [facility] [address] [facility] [address] Performing Lab: [facility] [place] [facility] [address] [facility] [address] [facility] [place] [facility] CBC AND DIFF (AUTO) LYMPHOCYTE S/100 LEUKOCYTES IN BLOOD BY AUTOMATED COUNT 22.3 14.0 - 42.3 07/06 Specimen Type: BLOOD No comment entered. Ordering Provider: OPAL RAZO Report Released Date/Time: Jul 01, 2024 03:56 PM Reporting Lab: [facility] [place] [facility] [address] [facility] [address] Performing Lab: [facility] [place] [facility] [address] [facility] [address] [facility] [place] [facility] CBC AND DIFF (AUTO) MONOCYTES/ 100 LEUKOCYTES IN BLOOD BY AUTOMATED COUNT 5.6 5.1 - 13.7 07/06 Specimen Type: BLOOD No comment entered. Ordering Provider: OPAL RAZO Report Released Date/Time: Jul 01, 2024 03:56 PM Reporting Lab: [facility] [place] [facility] [address] [facility] [address] Performing Lab: [facility] [place] [facility] [address] [facility] [address] [facility] [place] [facility] CBC AND DIFF (AUTO) EOSINOPHIL S/100 LEUKOCYTES IN BLOOD BY AUTOMATED COUNT 0.6 0.4 - 6.8 07/06 Specimen Type: BLOOD No comment entered. Ordering Provider: OPAL RAZO Report Released Date/Time: Jul 01, 2024 03:56 PM Reporting Lab: [facility] [place] [facility] [address] [facility] [address] Performing Lab: [facility] [place] [facility] [address] [facility] [address] [facility] [place] [facility] CBC AND DIFF (AUTO) BASOPHILS/ 100 LEUKOCYTES IN BLOOD BY AUTOMATED COUNT 0.7 0.1 - 2.0 07/06 Specimen Type: BLOOD No comment entered. Ordering Provider: OPAL RAZO Report Released Date/Time: Jul 01, 2024 03:56 PM Reporting Lab: [facility] [place] [facility] [address] [facility] [address] Performing Lab: [facility] [place] [facility] [address] [facility] [address] [facility] [place] [facility] CBC AND DIFF (AUTO) NEUTROPHIL S [#/VOLUME] IN BLOOD BY AUTOMATED COUNT 6.11 10*3/uL 2.20 - 7.60 07/06 Specimen Type: BLOOD No comment entered. Ordering Provider: OPAL RAZO Report Released Date/Time: Jul 01, 2024 03:56 PM Reporting Lab: [facility] HOSPITALRENCOMPASS HEALTH REHABILITATION HOSPITAL OF DOTHANTRN [facility] HOSPITALUSETS [address] [address] Performing Lab: [facility] [address] [address] [facility]PITALUSE TS [facility] CBC AND DIFF (AUTO) LYMPHOCYTE S [#/VOLUME] IN BLOOD BY AUTOMATED COUNT 1.94 10*3/uL 1.00 - 3.20 07/06 Specimen Type: BLOOD No comment entered. Ordering Provider: OPAL RAZO Report Released Date/Time: Jul 01, 2024 03:56 PM Reporting Lab: [facility] HOSPITALRL WSTRN [facility]PITALUSETS [address] [address] Performing Lab: [facility]PITALUSETS [address] [phone] [place], [place] [address]RL WSTRN [facility]OSPITALUSE TS [facility] CBC AND DIFF (AUTO) EOSINOPHIL S [#/VOLUME] IN BLOOD BY AUTOMATED COUNT 0.05 10*3/uL 0.03 - 0.44 07/06 Specimen Type: BLOOD No comment entered. Ordering Provider: OPAL RAZO Report Released Date/Time: Jul 01, 2024 03:56 PM Reporting Lab: [facility] [place] [facility] [address] [facility] [address] Performing Lab: [facility]PITALUSETS [address] [address] [facility] [place] [facility] CBC AND DIFF (AUTO) BASOPHILS [#/VOLUME] IN BLOOD BY AUTOMATED COUNT 0.06 10*3/uL 0.01 - 0.13 07/06 Specimen Type: BLOOD No comment entered. Ordering Provider: OPAL RAZO Report Released Date/Time: Jul 01, 2024 03:56 PM Reporting Lab: [facility] [place] [facility] [address] [facility] [address] Performing Lab: [facility] [place] [facility] [address] [facility] [address] [facility] [place] [facility] CBC AND DIFF (AUTO) IMMATURE GRANULOCYT ES/100 LEUKOCYTES IN BLOOD BY AUTOMATED COUNT 0.5 0.0 - 0.7 07/06 Specimen Type: BLOOD No comment entered. Ordering Provider: OPAL RAZO Report Released Date/Time: Jul 01, 2024 03:56 PM Reporting Lab: [facility] [place] [address] [address] Performing Lab: [facility] [place] [address] [address] [facility] [place] [facility] CBC AND DIFF (AUTO) IMMATURE GRANULOCYT ES [#/VOLUME] IN BLOOD 0.04 10*3/uL 0.00 - 0.06 07/06 Specimen Type: BLOOD No comment entered. Ordering Provider: OPAL RAZO Report Released Date/Time: Jul 01, 2024 03:56 PM Reporting Lab: [facility] [place] [address] [address] Performing Lab: [facility] [address] [address] [facility] HOSPITALRL WSTRN [facility]OSPITALCHUSE TS [facility] CBC AND DIFF (AUTO) NRBC % 0.0 0.0 - 0.0 07/06 Specimen Type: BLOOD No comment entered. Ordering Provider: OPAL RAZO Report Released Date/Time: Jul 01, 2024 03:56 PM Reporting Lab: [facility] [place] [address] [address] Performing Lab: [facility] [place] [address] [address] [place] [facility] [place] [facility] CBC AND DIFF (AUTO) NRBC, ABS 0.00 10*3/uL 0.00 - 0.00 07/06 Specimen Type: BLOOD No comment entered. Ordering Provider: OPAL RAZO Report Released Date/Time: Jul 01, 2024 03:56 PM Reporting Lab: [facility] HOSPITALRL WSTRN [facility]ITALUSED[facility] [address] [facility] [address] Performing Lab: [place] [facility] [facility]ITALUSED[facility] [address] [facility] [address] [facility] HOSPITALRLAUREL [facility]ENTERN [facility] HOSPITALUSE [facility] HEMOGLOB IN A1C PANEL HEMOGLOBIN A1C/HEMOGL OBIN.TOTAL IN BLOOD BY HPLC 4.9 4.0 - 5.6 07/06 Specimen Type: BLOOD Comment: Values obtained from A1C measurement s can vary. For atypical A1C assays, a reported value of 7.0 could actually be between 6.72 and 7.28 if measured by a reference method. A reported value of 9.0 could actually be between 8.73 and 9.27. Ref: http://www. ngsp.org/[place] Pdata.asp Ordering Provider: OPAL RAZO Report Released Date/Time: Jul 01, 2024 03:56 PM Reporting Lab: [facility] HOSPITALRL TRN [facility]OSPITALUSE[address] [address] Performing Lab: [facility] HOSPITALRL TRN [facility]OSPITALUSE[address] [address] [facility] HOSPITALRLAUREL [facility]ERN [facility] LIVER FUNCTION PROTEIN [MASS/VOLU ME] IN SERUM OR PLASMA 7.4 g/dL 6.0 - 8.3 07/06 Specimen Type: SERUM No comment entered. Ordering Provider: OPAL RAZO Report Released Date/Time: Jul 01, 2024 03:56 PM Reporting Lab: [facility] HOSPITALRL WSTRN [facility]OSPITALUSETS [address] [address] Performing Lab: [facility] HOSPITALRL WSTRN [facility]PITALUSE[address] [address] [facility] HOSPITALRLAUREL [facility]ENTERN [facility] HOSPITALUSE [facility] LIVER FUNCTION ALBUMIN [MASS/VOLU ME] IN SERUM OR PLASMA 4.4 g/dL 3.5 - 5.0 07/06 Specimen Type: SERUM No comment entered. Ordering Provider: OPAL RAZO Report Released Date/Time: Jul 01, 2024 03:56 PM Reporting Lab: [facility] [place] [facility] [address] [facility] [address] Performing Lab: [facility] [place] [facility] [address] [facility] [address] [facility] [place] [place] [facility] LIVER FUNCTION ALKALINE PHOSPHATAS E [ENZYMATIC ACTIVITY/V OLUME] IN SERUM OR PLASMA 95 U/L 40 - 150 07/06 Specimen Type: SERUM No comment entered. Ordering Provider: OPAL RAZO Report Released Date/Time: Jul 01, 2024 03:56 PM Reporting Lab: [facility] [place] [facility] [address] [facility] [address] Performing Lab: [facility] [place] [facility] [address] [facility] [address] [facility] [place] [place] [facility] LIVER FUNCTION ASPARTATE AMINOTRANS FERASE [ENZYMATIC ACTIVITY/V OLUME] IN SERUM OR PLASMA 21 U/L 5 - 34 07/06 Specimen Type: SERUM No comment entered. Ordering Provider: OPAL RAZO Report Released Date/Time: Jul 01, 2024 03:56 PM Reporting Lab: [facility] [facility] [address] [facility] [address] Performing Lab: [facility] [place] [place] [facility] [address] [facility] [address] [facility] [place] [facility] LIVER FUNCTION ALANINE AMINOTRANS FERASE [ENZYMATIC ACTIVITY/V OLUME] IN SERUM OR PLASMA 34 U/L 07/06 Specimen Type: SERUM No comment entered. Ordering Provider: OPAL RAZO Report Released Date/Time: Jul 01, 2024 03:56 PM Reporting Lab: [facility] [place] [facility] [address] [facility] [address] Performing Lab: [facility] [place] [facility] [address] [facility] [address] [facility] [place] [facility] LIVER FUNCTION BILIRUBIN. TOTAL [MASS/VOLU ME] IN SERUM OR PLASMA 0.4 mg/dL 0.2 - 1.2 07/06 Specimen Type: SERUM No comment entered. Ordering Provider: OPAL RAZO Report Released Date/Time: Jul 01, 2024 03:56 PM Reporting Lab: [address] [address] Performing Lab: [address] [address] [facility] T-SPOT TB PANEL MYCOBACTER IUM TUBERCULOS IS STIMULATED GAMMA INTERFERON [INTERPRET ATION] IN BLOOD QUALITATIV E Negative 07/10 Specimen Type: BLOOD Comment: A negative test result does not exclude the possibility of exposure to or infection with Mycobacteri um tuberculosi s (M. tuberculosi s). Patients with recent exposure to TB infected individuals exhibiting a negative T-SPOT.TB result should be considered for retesting within 6 weeks or if other relevant clinical symptoms indicate. Results from T-SPOT.TB testing must be used in conjunction with each individual' s epidemiolog ical history, current medical status, and results of other diagnostic evaluations . The T-SPOT.TB test is qualitative and results are reported as positive, borderline, or negative, given that the test controls perform as expected. In line with the Centers for Disease Control and Prevention' s 2010 recommendat ion to report quantitativ e measurement s alongside the qualitative result, the laboratory provides spot counts for information al purposes only. The T-SPOT.TB test should not be interpreted as a quantitativ e test. For additional information , please refer to http://educ ation.Theracos .com/faq/FA Q215 (This link is being provided for information al/ educational purposes only.) Test Performed by [employer] [facility], [facility], [address] [place] [address] Mal Freeman M.D., Ph.D., Director of Laboratorie s , CLIA [id number] TEST PERFORMED AT: , Ordering Provider: OPAL RAZO Report Released Date/Time: Jul 10, 2023 10:22 AM Reporting Lab: [address] [place] [address] Performing Lab: [facility] [address] [address] [facility] T-SPOT TB PANEL MYCOBACTER IUM TUBERCULOS IS STIMULATED GAMMA INTERFERON ESAT-6 AG SPOT COUNT [#] IN BLOOD 0 07/10 Specimen Type: BLOOD Comment: A negative test result does not exclude the possibility of exposure to or infection with Mycobacteri um tuberculosi s (M. tuberculosi s). Patients with recent exposure to TB infected individuals exhibiting a negative T-SPOT.TB result should be considered for retesting within 6 weeks or if other relevant clinical symptoms indicate. Results from T-SPOT.TB testing must be used in conjunction with each individual' s epidemiolog ical history, current medical status, and results of other diagnostic evaluations . The T-SPOT.TB test is qualitative and results are reported as positive, borderline, or negative, given that the test controls perform as expected. In line with the Centers for Disease Control and Prevention' s 2010 recommendat ion to report quantitativ e measurement s alongside the qualitative result, the laboratory provides spot counts for information al purposes only. The T-SPOT.TB test should not be interpreted as a quantitativ e test. For additional information , please refer to http://educ ation.Theracos .com/faq/FA Q215 (This link is being provided for information al/ educational purposes only.) Test Performed by [facility], [employer], [address] [place] [address] Mal Freeman M.D., Ph.D., Director of Laboratorie s , CLIA [id number] TEST PERFORMED AT: , Ordering Provider: OPAL RAZO Report Released Date/Time: Jul 10, 2023 10:22 AM Reporting Lab: [facility] [address] [facility] [address] Performing Lab: [facility] [address] [address] [facility] T-SPOT TB PANEL MYCOBACTER IUM TUBERCULOS IS STIMULATED GAMMA INTERFERON CFP10 AG SPOT COUNT [#] IN BLOOD 2 07/10 Specimen Type: BLOOD Comment: A negative test result does not exclude the possibility of exposure to or infection with Mycobacteri um tuberculosi s (M. tuberculosi s). Patients with recent exposure to TB infected individuals exhibiting a negative T-SPOT.TB result should be considered for retesting within 6 weeks or if other relevant clinical symptoms indicate. Results from T-SPOT.TB testing must be used in conjunction with each individual' s epidemiolog ical history, current medical status, and results of other diagnostic evaluations . The T-SPOT.TB test is qualitative and results are reported as positive, borderline, or negative, given that the test controls perform as expected. In line with the Centers for Disease Control and Prevention' s 2010 recommendat ion to report quantitativ e measurement s alongside the qualitative result, the laboratory provides spot counts for information al purposes only. The T-SPOT.TB test should not be interpreted as a quantitativ e test. For additional information , please refer to http://educ ation.Theracos .com/faq/FA Q215 (This link is being provided for information al/ educational purposes only.) Test Performed by [employer], [employer] [facility], [address] [place] [address] Mal Freeman M.D., Ph.D., Director of Laboratorie s , CLIA [id number] TEST PERFORMED AT: , Ordering Provider: OPAL RAZO Report Released Date/Time: Jul 10, 2023 10:22 AM Reporting Lab: [facility] [address] [facility] [address] Performing Lab: [facility] [address] [address] [facility] T-SPOT TB PANEL MITOGEN STIMULATED GAMMA INTERFERON POSITIVE CONTROL SPOT COUNT [#] IN BLOOD Passed 07/10 Specimen Type: BLOOD Comment: A negative test result does not exclude the possibility of exposure to or infection with Mycobacteri um tuberculosi s (M. tuberculosi s). Patients with recent exposure to TB infected individuals exhibiting a negative T-SPOT.TB result should be considered for retesting within 6 weeks or if other relevant clinical symptoms indicate. Results from T-SPOT.TB testing must be used in conjunction with each individual' s epidemiolog ical history, current medical status, and results of other diagnostic evaluations . The T-SPOT.TB test is qualitative and results are reported as positive, borderline, or negative, given that the test controls perform as expected. In line with the Centers for Disease Control and Prevention' s 2010 recommendat ion to report quantitativ e measurement s alongside the qualitative result, the laboratory provides spot counts for information al purposes only. The T-SPOT.TB test should not be interpreted as a quantitativ e test. For additional information , please refer to http://educ ation.Theracos .iogyn/faq/FA Q215 (This link is being provided for information al/ educational purposes only.) Test Performed by [facility]iumPrice, [employer] [facility], [address] [place] [address] Mal Freeman M.D., Ph.D., Director of Laboratorie s , CLIA [id number] TEST PERFORMED AT: , Ordering Provider: OPAL RAZO Report Released Date/Time: Jul 10, 2023 10:22 AM Reporting Lab: [facility] [address] [facility] [address] Performing Lab: [facility] [address] [address] [facility] T-SPOT TB PANEL GAMMA INTERFERON NEGATIVE CONTROL SPOT COUNT [#] IN BLOOD Passed 07/10 Specimen Type: BLOOD Comment: A negative test result does not exclude the possibility of exposure to or infection with Mycobacteri um tuberculosi s (M. tuberculosi s). Patients with recent exposure to TB infected individuals exhibiting a negative T-SPOT.TB result should be considered for retesting within 6 weeks or if other relevant clinical symptoms indicate. Results from T-SPOT.TB testing must be used in conjunction with each individual' s epidemiolog ical history, current medical status, and results of other diagnostic evaluations . The T-SPOT.TB test is qualitative and results are reported as positive, borderline, or negative, given that the test controls perform as expected. In line with the Centers for Disease Control and Prevention' s 2010 recommendat ion to report quantitativ e measurement s alongside the qualitative result, the laboratory provides spot counts for information al purposes only. The T-SPOT.TB test should not be interpreted as a quantitativ e test. For additional information , please refer to http://educ ation.Theracos .iogyn/faq/FA Q215 (This link is being provided for information al/ educational purposes only.) Test Performed by [employer], [employer] [facility], [address] [place] [address] Mal Freeman M.D., Ph.D., Director of Laboratorie s , CLIA [id number] TEST PERFORMED AT: , Ordering Provider: OPAL RAZO Report Released Date/Time: Jul 10, 2023 10:22 AM Reporting Lab: [address] [address] Performing Lab: [place] [id number] LIVER FUNCTION PROTEIN [MASS/VOLU ME] IN SERUM OR PLASMA 6.7 g/dL 6.0 - 8.3 03/31 Specimen Type: SERUM No comment entered. Ordering Provider: JULES PEREZ Report Released Date/Time: Mar 30, 2023 12:31 PM Reporting Lab: [address] [address] Performing Lab: [address] [address] [facility] LIVER FUNCTION ALBUMIN [MASS/VOLU ME] IN SERUM OR PLASMA 4.1 g/dL 3.5 - 5.0 03/31 Specimen Type: SERUM No comment entered. Ordering Provider: JULES PEREZ Report Released Date/Time: Mar 30, 2023 12:31 PM Reporting Lab: [facility] [place] [facility] [address] [facility] [address] Performing Lab: [facility] [place] [place] [facility] [address] [facility] [address] [facility] [place] [facility] LIVER FUNCTION ALKALINE PHOSPHATAS E [ENZYMATIC ACTIVITY/V OLUME] IN SERUM OR PLASMA 72 U/L 40 - 150 03/31 Specimen Type: SERUM No comment entered. Ordering Provider: JULES PEREZ Report Released Date/Time: Mar 30, 2023 12:31 PM Reporting Lab: [facility] [place] [facility] [address] [facility] [address] Performing Lab: [facility] [place] [place] [facility] [address] [facility] [address] [facility] LIVER FUNCTION ASPARTATE AMINOTRANS FERASE [ENZYMATIC ACTIVITY/V OLUME] IN SERUM OR PLASMA 11 U/L 5 - 34 03/31 Specimen Type: SERUM No comment entered. Ordering Provider: JULES PEREZ Report Released Date/Time: Mar 30, 2023 12:31 PM Reporting Lab: [facility] [place] [facility] [address] [facility] [address] Performing Lab: [facility] [place] [facility] [address] [facility] [address] [facility] LIVER FUNCTION ALANINE AMINOTRANS FERASE [ENZYMATIC ACTIVITY/V OLUME] IN SERUM OR PLASMA 19 U/L 03/31 Specimen Type: SERUM No comment entered. Ordering Provider: JULES PEREZ Report Released Date/Time: Mar 30, 2023 12:31 PM Reporting Lab: [facility] [place] [facility] [address] [facility] [address] Performing Lab: [facility] [place] [facility] [address] [facility] [address] [facility] LIVER FUNCTION BILIRUBIN. TOTAL [MASS/VOLU ME] IN SERUM OR PLASMA 0.4 mg/dL 0.2 - 1.2 03/31 Specimen Type: SERUM No comment entered. Ordering Provider: JULES PEREZ Report Released Date/Time: Mar 30, 2023 12:31 PM Reporting Lab: [facility] [place] [address] [address] Performing Lab: [facility] [place] [facility] [address] [facility] [address] [facility] [place] [facility] AMPHETAM SHERIE SCREEN PANEL AMPHETAMIN ES [PRESENCE] IN URINE NONE-DET ECTED 03/26 Specimen Type: URINE Comment: Urine with Cr <5 is diluted or substituted . Cr between 5 and 20 is very dilute. Urine with SG of 1.001 or less is diluted or substituted . SG of 1.003 or less is very dilute. Urine with a pH <3 or >11 has been adulterated and is unsuitable for testing by our current method. Urine with pH between 3 and 4 OR 10 and 11 may have been adulterated . Ordering Provider: JULES PEREZ Report Released Date/Time: Mar 26, 2023 08:40 AM Reporting Lab: [facility] [place] [address] [address] Performing Lab: [facility] [place] [address] [address] [facility] DOTHANTRN [place] TS [facility] AMPHETAM SHERIE SCREEN PANEL PH OF URINE 6.9 [pH] 4 - 10 03/26 Specimen Type: URINE Comment: Urine with Cr <5 is diluted or substituted . Cr between 5 and 20 is very dilute. Urine with SG of 1.001 or less is diluted or substituted . SG of 1.003 or less is very dilute. Urine with a pH <3 or >11 has been adulterated and is unsuitable for testing by our current method. Urine with pH between 3 and 4 OR 10 and 11 may have been adulterated . Ordering Provider: JULES PEREZ Report Released Date/Time: Mar 26, 2023 08:40 AM Reporting Lab: [facility] [place] [address] [address] Performing Lab: [facility] [address] [address] [facility]N [place] [facility] AMPHETAM SHERIE SCREEN PANEL CREATININE [MASS/VOLU ME] IN URINE 106.21 mg/dL 03/26 Specimen Type: URINE Comment: Urine with Cr <5 is diluted or substituted . Cr between 5 and 20 is very dilute. Urine with SG of 1.001 or less is diluted or substituted . SG of 1.003 or less is very dilute. Urine with a pH <3 or >11 has been adulterated and is unsuitable for testing by our current method. Urine with pH between 3 and 4 OR 10 and 11 may have been adulterated . Ordering Provider: JULES PEREZ Report Released Date/Time: Mar 26, 2023 08:40 AM Reporting Lab: [facility]USED[facility] [address] [facility] [address] Performing Lab: [address] [address] [facility] AMPHETAM SHERIE SCREEN PANEL SPECIFIC GRAVITY OF URINE 1.019 1.003 - 1.020 03/26 Specimen Type: URINE Comment: Urine with Cr <5 is diluted or substituted . Cr between 5 and 20 is very dilute. Urine with SG of 1.001 or less is diluted or substituted . SG of 1.003 or less is very dilute. Urine with a pH <3 or >11 has been adulterated and is unsuitable for testing by our current method. Urine with pH between 3 and 4 OR 10 and 11 may have been adulterated . Ordering Provider: JULES PEREZ Report Released Date/Time: Mar 26, 2023 08:40 AM Reporting Lab: [facility] MASSTira WirelessUSETS [facility] [address] [facility] [address] Performing Lab: [facility]USED[facility] [address] [facility] [address] [facility]USE [facility] BENZODIA ZEPINES SCREEN PANEL BENZODIAZE PINES [PRESENCE] IN URINE BY SCREEN METHOD NONE-DET ECTED 03/26 Specimen Type: URINE Comment: Urine with Cr <5 is diluted or substituted . Cr between 5 and 20 is very dilute. Urine with SG of 1.001 or less is diluted or substituted . SG of 1.003 or less is very dilute. Urine with a pH <3 or >11 has been adulterated and is unsuitable for testing by our current method. Urine with pH between 3 and 4 OR 10 and 11 may have been adulterated . Ordering Provider: JULES PEREZ Report Released Date/Time: Mar 26, 2023 08:40 AM Reporting Lab: [facility] [place] [facility] [address] [facility] [address] Performing Lab: [facility] [place] [address] [address] [facility]ITALRENCOMPASS [facility] DOTHANTRN M[place] [facility] BENZODIA ZEPINES SCREEN PANEL PH OF URINE 6.9 [pH] 4 - 10 03/26 Specimen Type: URINE Comment: Urine with Cr <5 is diluted or substituted . Cr between 5 and 20 is very dilute. Urine with SG of 1.001 or less is diluted or substituted . SG of 1.003 or less is very dilute. Urine with a pH <3 or >11 has been adulterated and is unsuitable for testing by our current method. Urine with pH between 3 and 4 OR 10 and 11 may have been adulterated . Ordering Provider: JULES PEREZ Report Released Date/Time: Mar 26, 2023 08:40 AM Reporting Lab: [facility] [place]N [place] [address] [address] Performing Lab: [facility] [place] [address] [address] [facility]PITALUSE TS [facility] BENZODIA ZEPINES SCREEN PANEL CREATININE [MASS/VOLU ME] IN URINE 106.21 mg/dL 03/26 Specimen Type: URINE Comment: Urine with Cr <5 is diluted or substituted . Cr between 5 and 20 is very dilute. Urine with SG of 1.001 or less is diluted or substituted . SG of 1.003 or less is very dilute. Urine with a pH <3 or >11 has been adulterated and is unsuitable for testing by our current method. Urine with pH between 3 and 4 OR 10 and 11 may have been adulterated . Ordering Provider: JULES PEREZ Report Released Date/Time: Mar 26, 2023 08:40 AM Reporting Lab: [facility] [place] [address] [address] Performing Lab: [facility] [place] [facility] [address] [facility] [address] [facility] [place] [facility] BENZODIA ZEPINES SCREEN PANEL SPECIFIC GRAVITY OF URINE 1.019 1.003 - 1.020 03/26 Specimen Type: URINE Comment: Urine with Cr <5 is diluted or substituted . Cr between 5 and 20 is very dilute. Urine with SG of 1.001 or less is diluted or substituted . SG of 1.003 or less is very dilute. Urine with a pH <3 or >11 has been adulterated and is unsuitable for testing by our current method. Urine with pH between 3 and 4 OR 10 and 11 may have been adulterated . Ordering Provider: JULES PEREZ Report Released Date/Time: Mar 26, 2023 08:40 AM Reporting Lab: [facility] [place] [facility] [address] [facility] [address] Performing Lab: [facility] [place] [facility] [address] [facility] [address] [facility] [place] [facility] Vital Signs Combined list of inpatient and outpatient Vital Signs from Department of Defense and Veterans Affairs, ranging from 12 months to all on record, depending upon the facility. Vital Sign Value Date Comments Source SYSTOLIC BLOOD PRESSURE 148 08/10/2024 10:08:37 [facility] [place] [facility] DIASTOLIC BLOOD PRESSURE 76 08/10/2024 10:08:37 [facility] [place] [facility] PULSE OXIMETRY 97 08/10/2024 10:08:37 [facility] [place] [facility] TEMPERATURE 98.4 08/10/2024 10:08:37 [facility] [place] [facility] PULSE 91 08/10/2024 10:08:37 [facility] [place] [facility] RESPIRATION 18 08/10/2024 10:08:37 [facility] [place] [facility] SYSTOLIC BLOOD PRESSURE 145 07/14/2024 10:41:25 [facility] [place] [facility] DIASTOLIC BLOOD PRESSURE 84 07/14/2024 10:41:25 [facility] [place] [facility] PULSE OXIMETRY 97 07/14/2024 10:41:25 [facility] [place] [facility] TEMPERATURE 98 07/14/2024 10:41:25 [facility] [place] [facility] PULSE 90 07/14/2024 10:41:25 [facility] [place] [facility] RESPIRATION 19 07/14/2024 10:41:25 [facility] [place] [facility] SYSTOLIC BLOOD PRESSURE 135 06/09/2024 13:32:44 [facility] [place] [facility] DIASTOLIC BLOOD PRESSURE 92 06/09/2024 13:32:44 [facility] [place] [facility] PULSE OXIMETRY 97 06/09/2024 13:32:44 [facility] [place] [facility] PULSE 82 06/09/2024 13:32:44 [facility] [place] [facility] RESPIRATION 20 06/09/2024 13:32:44 [facility] [place] [facility] Encounters Combined list of: 1) Encounters from Department of Veterans Affairs facilities going back up to thelast 18 months. 2) Encounters from the Department of Defense facilities going back up to 280 months. Location Location Details Encounter Type Encounter Number Reason For Visit Attending Provider ADM Date DC Date Status [facility]) [id number] SUITABI DERICK MILLER T 08/30 Released w/o Limitations [facility] OUTPAT[facility] [id number] ad needs ref to pulm for asthma testing TAMI FRIAS 09/04 [facility]ased w/o Limitations [facility]) OUTPATIENT [id number] pulmona ry consult per DERICK Cat T 09/05 Released w/o Limitations [facility] ub[facility]) [facility] OUTPATIENT [id number] bp check TANVI VINSON 09/27 Released w/o Limitations [facility](S ubase Immed Care) [facility] Immed Care) TELE CONSULT [id number] PT require s consult to pulmono logy for asthma evaluat ion DERICK CHAPMAN T 10/01 [facility] ub[facility] Immed Care) [facility]Joellen merton Pul[facility]olo [facility] OUTPATIENT [id number] wheezin g [as a symptom ] GREGORIO_NIDIA CASPER S 10/29 Released with Work/Duty Limitations [facility](B remerto n Pulmono logy) [facility]([facility]) OUTPATIENT [id number] 30YO/FU ON ASTHMA DERICK CHAPMAN T 11/04 Released w/o Limitations [facility] [place](Z ZFamily Medicin e) Formerly [facility]([facility]) OUTPATIENT [id number] AD Rash on back x 1-2mo VALDO ALTMAN 02/19 Released w/o Limitations [facility](Z ZFamily Medicin e) Formerly [facility](B Chiroprac tic Cln) OUTPATIENT [id number] BACKACH E BHATTI, SPRING N 02/28 Released w/o Limitations [facility](B Chiropr actic Cln) Formerly [facility](B Chiroprac tic Cln) OUTPATIENT [id number] f/u upper back pain BHATTI, SPRING N 03/03 Released w/o Limitations [facility](B Chiropr actic Cln) [facility]ly [facility](B Chiroprac tic Cln) OUTPATIENT [id number] f/u upper back pain BHATTI, SPRING N 03/05 Released w/o Limitations [facility](B Chiropr actic Cln) [facility](B Chiroprac tic Cln) OUTPATIENT [id number] f.u per pt BHATTI, SPRING N 03/14 Released w/o Limitations [facility](B Chiropr actic Cln) [facility](B Chiroprac tic Cln) OUTPATIENT [id number] f.u back per pt BHATTI, SPRING N 03/17 Released w/o Limitations [facility](B Chiropr actic Cln) [facility](B Chiroprac tic Cln) OUTPATIENT [id number] LBP BHATTI, SPRING N 03/19 Released w/o Limitations [facility] [place](B Chiropr actic Cln) [facility](Sub ase Patient Ed) OUTPATIENT [id number] PPD intervi ew DAO MATTHEWS S 04/22 Released w/o Limitations [facility](S ubase Patient Ed) [facility](Sub ase Immunizat ions) OUTPATIENT [id number] typhoid DAO MATTHEWS 04/22 Released w/o Limitations [facility](S ubase Immuniz ations) [facility](Sub ase Immunizat ions) OUTPATIENT [id number] hep b DAO MATTHEWS 05/08 Released w/o Limitations [facility](S ubase Immuniz ations) [facility](Sub ase Immunizat ions) OUTPATIENT [id number] HBV#[id number] DAO MATTHEWS 12/03 Released w/o Limitations [facility](S ubase Immuniz ations) [facility](Sub ase Immunizat ions) OUTPATIENT [id number] TD BERYL AMADOR 12/04 Released w/o Limitations [facility](S ubase Immuniz ations) Former[facility](Sub ase Optometry Clinic) OUTPATIENT [id number] AD Eye check KEN GARCIA 01/08 Released w/o Limitations [facility](S ubase Optomet ry Clinic) [facility]([facility] Pre[facility] Med Clinic) OUTPATIENT [id number] Annual Follow- up for TB Screeni CHARISSA Arizmendi 02/23 Released w/o Limitations [facility](B remerto n Prev Med Clinic) [facility](Sub ase Occupatio [facility]) OUTPATIENT [id number] KEMI Taylor 02/23 Released w/o Limitations [facility] [place](S ubase [facility]) [facility](SD Nutrition ) OUTPATIENT [id number] SAW WRIGHT 03/19 Released w/o Limitations [facility](S D Nutriti on) [facility] [place] [facility] OFFICE O/P EST SF 10-19 MIN [id number] Diagnos is: ICD-10- CM F25.0 Schizoa ffectiv e disorde r, bipolar type
ZAHRAMAYRA MARISABEL S 03/01 [facility] [place] [place] [facility] [place] [facility] OFFICE O/P EST SF 10-19 MIN [id number] Diagnos is: ICD-10- CM F25.0 Schizoa ffectiv e disorde r, bipolar type
ZAHRAMAYRA MARISABEL S 03/02 [facility] [place] [place] [facility] [place] [facility] [id number] Diagnos is: ICD-10- CM F10.24 Alcohol depende nce with alcohol -induce d mood disorde r
REINALDO RCEANDRIA 03/03 [facility] [place] [facility] [place] [facility] OFF[facility] O/P EST SF 10-19 MIN [id number] Diagnos is: ICD-10- CM F25.0 Schizoa ffectiv e disorde r, bipolar type
BROWNVINHMAYRA MARISABEL S 03/03 [facility] [place] [facility] [place] [facility] SBSQ HOSP IP/OBS MODERATE 35 [id number] Diagnos is: ICD-10- CM F12.20 Cannabi s depende nce, uncompl icated< br/> JULES PEREZ 03/04 [facility] [place] [place] [facility] [place] [facility] THERAPEUTI C ACTIVITIES [id number] Diagnos is: ICD-10- CM F25.0 Schizoa ffectiv e disorde r, bipolar type
BUFFY MALAVE DA T 03/04 [facility] [place] [facility] [place] [facility] Inpatient Encounter [id number] 03/04 [facility] [place] [place] [facility] [place] [facility] SBSQ HOSP IP/OBS MODERATE 35 [id number] Diagnos is: ICD-10- CM F25.0 Schizoa ffectiv e disorde r, bipolar type
JULES PEREZ 03/05 [facility] [place] [place] [facility] [place] [facility] THERAPEUTI C ACTIVITIES [id number] Diagnos is: ICD-10- CM F25.0 Schizoa ffectiv e disorde r, bipolar type
BUFFY MALAVE DA T 03/05 [facility] [place] [place] [facility] [place] [facility] CASE MANAGEMENT [id number] Diagnos is: ICD-10- CM F25.0 Schizoa ffectiv e disorde r, bipolar type
SU PETTIT N 03/05 [facility] [place] [place] [facility] [place] [facility] SBSQ HOSP IP/OBS MODERATE 35 [id number] Diagnos is: ICD-10- CM F25.0 Schizoa ffectiv e disorde r, bipolar type
JULES PEREZ 03/06 [facility] [place] [place] [facility] [place] [facility] CASE MANAGEMENT [id number] Diagnos is: ICD-10- CM F25.0 Schizoa ffectiv e disorde r, bipolar type
SU PETTIT N 03/06 [facility] [place] [place] [facility] ELECT[facility] DIOGRAM REPORT [id number] Diagnos is: ICD-10- CM Z13.6 Encount er for screeni ng for cardiov ascular disorde rs
RYAN HINOJOSA 03/06 [place] [facility] [place] [facility] ELECTROCAR DIOGRAM TRACING [id number] MEDARDO PARRISH 03/06 [facility] [place] [place] [facility] [place] [facility] THERAPEUTI C ACTIVITIES [id number] Diagnos is: ICD-10- CM F25.0 Schizoa ffectiv e disorde r, bipolar type
BUFFY MALAVE 03/06 [facility] [place] [place] [facility] [place] [facility] INTRAORAL PERIAPICAL FIRST [id number] Diagnos is: ICD-10- CM K08.9 Disorde r of teeth and support ing structu res, unspeci fied
ARIANA SMITH 03/07 [facility] [place] [place] [facility] [place] [facility] SBSQ HOSP IP/OBS MODERATE 35 [id number] Diagnos is: ICD-10- CM F12.20 Cannabi s depende nce, uncompl icated< br/> CHRISJULES Brian 03/07 [facility] [place] [place] [facility] CASE MANAGEMENT [id number] Diagnos is: ICD-10- CM F25.0 Schizoa ffectiv e disorde r, bipolar type
SU PETTIT N N 03/07 [facility] [place] [place] SBSQ HOSP IP/OBS SF/LOW 25 [id number] Diagnos is: ICD-10- CM F10.24 Alcohol depende nce with alcohol -induce d mood disorde r
Yanni LONG MD 03/08 [facility] [place] [place] SBSQ HOSP IP/OBS SF/LOW 25 [id number] Diagnos is: ICD-10- CM F10.24 Alcohol depende nce with alcohol -induce d mood disorde r
Yanni LONG MD 03/09 [facility] [place] [place] SBSQ HOSP IP/OBS SF/LOW 25 [id number] Diagnos is: ICD-10- CM F10.24 Alcohol depende nce with alcohol -induce d mood disorde r
Yanni LONG MD 03/10 [facility] [place] [place] [facility] CASE MANAGEMENT [id number] Diagnos is: ICD-10- CM F25.0 Schizoa ffectiv e disorde r, bipolar type
SU PETTIT N N 03/11 [facility] [place] [place] SBSQ HOSP IP/OBS MODERATE 35 [id number] Diagnos is: ICD-10- CM F25.0 Schizoa ffectiv e disorde r, bipolar type
JULES PEREZ 03/11 [facility] [place] [place] [facility] [place] [facility] SBSQ HOSP IP/OBS MODERATE 35 [id number] Diagnos is: ICD-10- CM F25.0 Schizoa ffectiv e disorde r, bipolar type
MIRJULES MILES 03/12 [facility] [place] [place] [facility] [place] [facility] CASE MANAGEMENT [id number] Diagnos is: ICD-10- CM F25.0 Schizoa ffectiv e disorde r, bipolar type
SU PETTIT N N 03/12 [facility] [place] [facility] [place] [place] [facility] SBSQ HOSP IP/OBS MODERATE 35 [id number] Diagnos is: ICD-10- CM F25.0 Schizoa ffectiv e disorde r, bipolar type
JULES PEREZ 03/13 [facility] [place] [facility] [place] [facility] 1ST HOSP IP/OBS SF/LOW 40 [id number] Diagnos is: ICD-10- CM K45.8 Oth abdomin al hernia without obstruc tion or gangren e
VALERIE WATT E 03/13 [facility] CASE MANAGEMENT [id number] Diagnos is: ICD-10- CM F25.0 Schizoa ffectiv e disorde r, bipolar type
SU PETTIT N 03/13 [facility] IP/OBS MODERATE 35 [id number] Diagnos is: ICD-10- CM F12.20 Cannabi s depende nce, uncompl icated< br/> JULES PEREZ 03/14 [facility] CASE MANAGEMENT [id number] Diagnos is: ICD-10- CM F25.0 Schizoa ffectiv e disorde r, bipolar type
SU PETTIT N 03/14 [facility] IP/OBS SF/LOW 25 [id number] Diagnos is: ICD-10- CM F25.0 Schizoa ffectiv e disorde r, bipolar type
Yanni LONG MD 03/15 [facility] IP/OBS SF/LOW 25 [id number] Diagnos is: ICD-10- CM F10.24 Alcohol depende nce with alcohol -induce d mood disorde r
Yanni LONG MD 03/16 [facility] IP/OBS MODERATE 35 [id number] Diagnos is: ICD-10- CM F12.20 Cannabi s depende nce, uncompl icated< br/> JULES PEREZ 03/17 [facility] CASE MANAGEMENT [id number] Diagnos is: ICD-10- CM F25.0 Schizoa ffectiv e disorde r, bipolar type
HODAN,SU N N 03/17 [facility] Inpatient Encounter [id number] 03/17 [facility] SBSQ HOSP IP/OBS MODERATE 35 [id number] Diagnos is: ICD-10- CM F12.20 Cannabi s depende nce, uncompl icated< br/> MIRJULES MILES M 03/18 [facility] CASE MANAGEMENT [id number] Diagnos is: ICD-10- CM F25.0 Schizoa ffectiv e disorde r, bipolar type
SU PETTIT N N 03/18 [facility] GROUP PSYCHOTHER APY [id number] [id number] Diagnos is: ICD-10- CM F25.0 Schizoa ffectiv e disorde r, bipolar type
REINALDO BAANDRIA Addison 03/18 [facility] SBSQ HOSP IP/OBS MODERATE 35 [id number] [id number] Diagnos is: ICD-10- CM F25.0 Schizoa ffectiv e disorde r, bipolar type
ADELSO LOMBARDO Z 03/18 [facility] SBSQ HOSP IP/OBS MODERATE 35 [id number] [id number] Diagnos is: ICD-10- CM F25.0 Schizoa ffectiv e disorde r, bipolar type
MIROT,JULES M 03/19 [facility] ELECTROCAR DIOGRAM TRACING [id number] DAVID MERIDA 03/19 [facility] CASE MANAGEMENT [id number] Diagnos is: ICD-10- CM F25.0 Schizoa ffectiv e disorde r, bipolar type
HODANSU N N 03/19 [facility] Inpatient Encounter [id number] Diagnos is: ICD-10- CM K40.91 Unilate ral inguina l hernia, w/o obst or gangren e, recurre nt
HARMAN LEAL S 03/19 [facility] SBSQ HOSP IP/OBS MODERATE 35 [id number] [id number] Diagnos is: ICD-10- CM F10.24 Alcohol depende nce with alcohol -induce d mood disorde r
JULES PEREZ 03/20 [facility] THERAPEUTI C ACTIVITIES [id number] [id number] Diagnos is: ICD-10- CM F25.0 Schizoa ffectiv e disorde r, bipolar type
BUFFY MALAVE 03/20 [facility] CASE MANAGEMENT [id number] Diagnos is: ICD-10- CM F25.0 Schizoa ffectiv e disorde r, bipolar type
SU PETTIT N N 03/20 [facility] SBSQ HOSP IP/OBS MODERATE 35 [id number] [id number] Diagnos is: ICD-10- CM F25.0 Schizoa ffectiv e disorde r, bipolar type
JULES PEREZ 03/21 [facility] CASE MANAGEMENT [id number] Diagnos is: ICD-10- CM F25.0 Schizoa ffectiv e disorde r, bipolar type
SU PETTIT N N 03/21 [facility] CASE MANAGEMENT [id number] Diagnos is: ICD-10- CM Z65.3 Problem s related to other legal circums tances< br/> HEIDI RODRIGUEZ NA E 03/21 [facility] SBSQ HOSP IP/OBS HIGH 50 [id number] [id number] Diagnos is: ICD-10- CM F25.0 Schizoa ffectiv e disorde r, bipolar type
RA Brian KANG 03/22 [facility] SBSQ HOSP IP/OBS HIGH 50 [id number] [id number] Diagnos is: ICD-10- CM F25.0 Schizoa ffectiv e disorde r, bipolar type
RA Brian KANG 03/23 [facility] SBSQ HOSP IP/OBS MODERATE 35 [id number] [id number] Diagnos is: ICD-10- CM F25.0 Schizoa ffectiv e disorde r, bipolar type
JULES PEREZ 03/24 [facility] CASE MANAGEMENT [id number] Diagnos is: ICD-10- CM F25.0 Schizoa ffectiv e disorde r, bipolar type
SU PETTIT Estephanie N 03/24 [facility] SBSQ HOSP IP/OBS MODERATE 35 [id number] [id number] ISADORA COREY 03/25 [facility] [place] [place] [id number] [id number] Diagnos is: ICD-10- CM F25.0 Schizoa ffectiv e disorde r, bipolar type
BUFFY MALAVE 03/25 [facility] Inpatient Encounter [id number] RA Brian KANG 03/25 [facility] SBSQ HOSP IP/OBS SF/LOW 25 [id number] [id number] Diagnos is: ICD-10- CM F25.0 Schizoa ffectiv e disorde r, bipolar type
JULES PEERZ 03/26 [facility] CASE MANAGEMENT [id number] [id number] Diagnos is: ICD-10- CM F25.0 Schizoa ffectiv e disorde r, bipolar type
SU PETTIT N N 03/26 [facility] CASE MANAGEMENT [id number] [id number] Diagnos is: ICD-10- CM Z65.3 Problem s related to other legal circums tances< br/> JENNIFERHEIDI NA E 03/26 [facility] ELECTR[facility]AR DIOGRAM REPORT [id number] [id number] Diagnos is: ICD-10- CM Z13.6 Encount er for screeni ng for cardiov ascular disorde rs
ROBERT VALDES UL U 03/26 [place] [facility] ELECTROCAR DIOGRAM TRACING [id number] [id number] ALBA QUISPE 03/26 [facility] ELECTROCAR DIOGRAM TRACING [id number] JULES PEREZ 03/26 [facility] SBSQ HOSP IP/OBS HIGH 50 [id number] [id number] Diagnos is: ICD-10- CM F31.9 Bipolar disorde r, unspeci fied
RA Brian KANG 03/27 [facility] CASE MANAGEMENT [id number] [id number] Diagnos is: ICD-10- CM F25.0 Schizoa ffectiv e disorde r, bipolar type
HODANSU N N 03/27 [facility] SBSQ HOSP IP/OBS MODERATE 35 [id number] [id number] Diagnos is: ICD-10- CM F25.0 Schizoa ffectiv e disorde r, bipolar type
JULES PEREZ 03/28 [facility] Inpatient Encounter [id number] SU PETTIT Estephanie N 03/28 [facility] THERAPEUTI C ACTIVITIES [id number] [id number] Diagnos is: ICD-10- CM F25.0 Schizoa ffectiv e disorde r, bipolar type
BUFFY MALAVE T 03/28 [facility] SBSQ HOSP IP/OBS SF/LOW 25 [id number] [id number] Diagnos is: ICD-10- CM F25.0 Schizoa ffectiv e disorde r, bipolar type
JULES PEREZ 03/29 [facility] SBSQ HOSP IP/OBS SF/LOW 25 [id number] [id number] Diagnos is: ICD-10- CM F12.20 Cannabi s depende nce, uncompl icated< br/> JULES PEREZ 03/30 [facility] Inpatient Encounter [id number] 03/31 [facility] SBSQ HOSP IP/OBS MODERATE 35 [id number] [id number] Diagnos is: ICD-10- CM F12.20 Cannabi s depende nce, uncompl icated< br/> JULES PEREZ 03/31 [facility] CASE MANAGEMENT [id number] [id number] Diagnos is: ICD-10- CM F25.0 Schizoa ffectiv e disorde r, bipolar type
SU PETTIT N N 03/31 [facility] Inpatient Encounter [id number] 03/31 [facility] SBSQ HOSP IP/OBS MODERATE 35 [id number] [id number] Diagnos is: ICD-10- CM F25.0 Schizoa ffectiv e disorde r, bipolar type
JULES PEREZ 04/01 [facility] PSYTX W PT 60 MINUTES [id number] Diagnos is: ICD-10- CM F25.0 Schizoa ffectiv e disorde r, bipolar type
SU PETTIT N N 04/01 [facility] [place] [id number] [id number] Diagnos is: ICD-10- CM F25.0 Schizoa ffectiv e disorde r, bipolar type
BUFFY MALAVE T 04/01 [facility] Inpatient Encounter [id number] 04/02 [facility] HOSP IP/OBS DSCHRG MGMT >30 [id number] [id number] Diagnos is: ICD-10- CM F25.0 Schizoa ffectiv e disorde r, bipolar type
JULES PEREZ M 04/02 [facility] CASE MANAGEMENT [id number] Diagnos is: ICD-10- CM F25.0 Schizoa ffectiv e disorde r, bipolar type
SU PETTIT Estephanie N 04/02 [facility] In[facility] Encounter [id number] 04/02 [facility] Outpatient Encounter [id number] 04/03 [facility] Out[facility] Encounter [id number] 04/04 [facility] Outpatient Encounter [id number] JD FRIAS 04/04 [facility] Outpatient Encounter [id number] SHERLY COLLINS 04/10 [facility] Out[facility] Encounter [id number] 04/14 [facility] Outpatient Encounter [id number] [id number] 04/14 [facility] Out[facility]counter [id number] [id number] 04/15 [facility] Out[facility]counter [id number] 04/16 [facility] Out[facility] Encounter [id number] [id number] 04/17 [facility] Out[facility] Encounter [id number] 04/18 [facility] CASE MANAGEMENT [id number] Diagnos is: ICD-10- CM Z59.01 Mcc ed homeles sness<b r/> FOX JOYCE 04/21 [facility] Out[facility] Encounter [id number] 04/24 [facility] Out[facility] Encounter [id number] 04/29 [facility] Out[facility]counter [id number] 04[facility]30 [facility] Out[facility] Encounter [id number] 05/01 [facility] Out[facility] Encounter [id number] 05/05 [facility] HC PRO PHONE CALL 5-10 MIN [id number] [id number] Diagnos is: ICD-10- CM F10.24 Alcohol depende nce with alcohol -induce d mood disorde r
Meredith TOLBERT 05/05 [facility] PSYTX W PT 30 MINUTES [id number] Diagnos is: ICD-10- CM F10.24 Alcohol depende nce with alcohol -induce d mood disorde r
KIANA GARCIA ON A 05/06 [facility] PSYTX W PT 45 MINUTES [id number] [id number] Diagnos is: ICD-10- CM F10.24 Alcohol depende nce with alcohol -induce d mood disorde r
JUSTIN ADAME 05/08 [facility] Outpatient Encounter [id number] JUSTIN ADAME 05/08 [facility] CASE MANAGEMENT [id number] Diagnos is: ICD-10- CM Z65.3 Problem s related to other legal circums tances< br/> JENNIFER,HEIDI NA E 05/09 [facility] HC PRO PHONE CALL 5-10 MIN [id number] [id number] Diagnos is: ICD-10- CM Z65.3 Problem s related to other legal circums tances< br/> JENNIFER,HEIDI NA E 05/16 [facility] OFFICE O/P EST SF 10-19 MIN [id number] [id number] Diagnos is: ICD-10- CM F10.24 Alcohol depende nce with alcohol -induce d mood disorde r
Yanni LONG MD 05/16 [facility] Out[facility] Encounter [id number] 05/21 [facility] CASE MANAGEMENT [id number] Diagnos is: ICD-10- CM Z59.01 Mcc ed homeles sness<b r/> MARIA DEL CARMENFOX DAI 05/29 [facility] Out[facility] Encounter [id number] HORACIO HELEN 06/11 [facility] Out[facility] Encounter [id number] 06/13 [facility] CASE MANAGEMENT [id number] Diagnos is: ICD-10- CM Z65.3 Problem s related to other legal circums tances< br/> HEIDI RODRIGUEZ 06/18 [facility] Out[facility] Encounter [id number] 06/19 [facility] OFFICE O/P EST MOD 30-39 MIN [id number] Diagnos is: ICD-10- CM J45.998 Other asthma< br/> IRAIDA LOWRY 06/19 [facility] Outpatient Encounter [id number] 06/20 [facility] Outpatient Encounter [id number] 06/22 [facility] Outpatient Encounter [id number] 07/07 [facility] Out[facility] Encounter [id number] 07/08 [facility] CASE MANAGEMENT [id number] Diagnos is: ICD-10- CM F25.0 Schizoa ffectiv e disorde r, bipolar type
MARIA DEL CARMENFOX DAI 07/09 [facility] OFFICE O/P EST MOD 30-39 MIN [id number] [id number] Diagnos is: ICD-10- CM M25.562 Pain in left knee
OPAL ANAYA 07/10 [facility] EYE EXAM NEW PATIENT [id number] Diagnos is: ICD-10- CM H25.013 Cortica l age-rel ated catarac t, bilater al
DARLENE CRUZ 07/10 [facility] Outpatient Encounter [id number] 07/10 [facility] FIT SPECTACLES MONOFOCAL [id number] [id number] Diagnos is: ICD-10- CM Z46.0 Encount er for fit/adj st of spectac les and contact lenses< br/> CARYL MARCUS 07/11 [facility] OFFICE O/P EST LOW 20-29 MIN [id number] Diagnos is: ICD-10- CM F25.0 Schizoa ffectiv e disorde r, bipolar type
Yanni LONG MD 07/17 [facility] Out[facility] Encounter [id number] 07/19 [facility] Outpatient Encounter [id number] 07/21 [facility] Out[facility] Encounter [id number] 08/12 [facility] CASE MANAGEMENT [id number] Diagnos is: ICD-10- CM Z65.3 Problem s related to other legal circums tances< br/> JENNIFER,HEIDI NA E 09/10 [facility] PSYTX W PT 30 MINUTES [id number] Diagnos is: ICD-10- CM F25.0 Schizoa ffectiv e disorde r, bipolar type
JOSE,ALLIS ON A 09/11 [facility] Outpatient Encounter [id number] 09/26 [facility] PSYTX W PT 30 MINUTES [id number] [id number] Diagnos is: ICD-10- CM F25.0 Schizoa ffectiv e disorde r, bipolar type
JOSEALLIS ON A 11/19 [facility] OFFICE O/P EST LOW 20 MIN [id number] Diagnos is: ICD-10- CM F25.0 Schizoa ffectiv e disorde r, bipolar type
Yanni LONG MD 11/19 [facility] Out[facility] Encounter [id number] 11/19 [facility] Outpatient Encounter [id number] 12/02 [facility] Outpatient Encounter [id number] 01/01 [facility] Outpatient Encounter [id number] 01/01 [facility] OFF/OP EST MAY X REQ PHY/QHP [id number] [id number] Diagnos is: ICD-10- CM F10.24 Alcohol depende nce with alcohol -induce d mood disorde r
Meredith SCOTT 04/08 [facility] OFFICE O/P EST MOD 30 MIN [id number] Diagnos is: ICD-10- CM I10 Essenti al (primar y) hyperte nsion<b r/> DOPAL PERSON 06/09 [facility] Out[facility] Encounter [id number] 06/10 [facility] OFFICE O/P EST LOW 20 MIN [id number] [id number] Diagnos is: ICD-10- CM F25.0 Schizoa ffectiv e disorde r, bipolar type
Yanni LONG MD 06/17 [facility] Out[facility] Encounter [id number] Brian YANCEYSA H 07/01 [facility] Outpatient Encounter [id number] [facility] OFFICE O/P NEW MOD 45 MIN [id number] 1. Diagnos is: ICD-10- CM M54.59 Other low back pain
MITRA BRAR RA 07/06 [facility] ORTHC/PROS TC MGMT SBSQ ENC [id number] 1. Diagnos is: ICD-10- CM M25.562 Pain in left knee
Brian SHAFFER 07/06 [facility] Out[facility] Encounter [id number] 1.07/06 [facility] HC PRO PHONE CALL 5-10 MIN [id number] Diagnos is: ICD-10- CM Z71.89 Other specifi ed residential substance abuse counselor ing<br/ > YAJAIRA VALENCIA H 07/06 [facility] Out[facility] Encounter [id number] 1.07/13 [facility] Out[facility] Encounter [id number] [facility] OFFICE O/P EST MOD 30 MIN [id number] Diagnos is: ICD-10- CM I10 Essenti al (primar y) hyperte nsion<b r/> OPAL ANAYA 07/14 [facility] Out[facility]counter [id number] 1.07/22 [facility]counter [id number] [facility] Encounter [id number] 07/27 [facility] OFFICE O/P EST LOW 20 MIN [id number] Diagnos is: ICD-10- CM F25.0 Schizoa ffectiv e disorde r, bipolar type
Yanni LONG MD 07/28 [facility] Out[facility] En[facility] [id number] 07/28 [facility] Out[facility] Encounter [id number] 08/09 [facility] OFFICE O/P NEW SF 15 MIN [id number] Diagnos is: ICD-10- CM L60.3 Nail dystrop hy
FRANCISCO NESBITT 08/10 [facility] Out[facility] Encounter [id number] 08/23 [facility]counter [id number] 08/26 [facility] Out[facility] Encounter [id number] 08/27 [facility] Procedures Combined list of: 1) Procedures from [facility] facilities going back up to thelast 18 months, not all VA non-surgical procedures are included; 2) All procedures from the Department of Defense facilities. 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 007 GOYO OZUNA Alcohol and/or drug services; group counseling by a clinician 007 GOYO OZUNA Psychotherapy Individual Approximately 75-80 Minutes Psychotherapy Individual Approximately 75-80 Minutes [id number] 007 GOYO OZUNA Behavioral health; short-term residential (non-hospital residential treatment program), without room and board, senior net developer architect 007 GOYO OZUNA Alcohol and/or drug services; group counseling by a clinician GOYO FRIAS Psychotherapy Individual Approximately 45 Minutes Psychotherapy Individual Approximately 45 Minutes [id number] 007 GOYO OZUNA Medical Nutrition Therapy Group (2 or More Individuals) Each 30 Minutes Medical Nutrition Therapy Group (2 or More Individuals) Each 30 Minutes [id number] 007 SAW SHEARER [facility] Behavioral health; short-term residential (non-hospital residential treatment program), without room and board, senior net developer architect 007 GOYO OZUNA Alcohol and/or drug services; group counseling by a clinician GOYO FRIAS Psychiatric Diagnostic Evaluation Comprehensive Examination Psychiatric Diagnostic Evaluation Comprehensive Examination [id number] 007 GOYO OZUNA Psychiatric Diagnostic Evaluation Comprehensive Examination Psychiatric Diagnostic Evaluation Comprehensive Examination 76914 007 BRETT PRATER [facility] Venipuncture Venipuncture 45630 OMEGA NIEVES Breathalyzer For Blood Alcohol Content Breathalyzer For Blood Alcohol Content 93250 007 OMEGA NIEVES Physician Supervised Services Provision Of Educational Supplies Physician Supervised Services Provision Of Educational Supplies 51940 CHARISSA FLETCHER Behavioral health counseling and therapy, per 15 minutes DAI MCDOWELL Alcohol and/or drug services; intensive outpatient (treatment program that operates at least 3 hours/day and at least 3 days/week and is based on an individualized treatment plan), including a e ment, counseling; crisis intervention, and activity therapies or education DAI MCDOWELL Behavioral health screening to determine eligibility for admi ion to treatment program DAI MCDOWELL Alcohol and/or drug a e ment DAI MCDOWELL Psychiatric Diagnostic Evaluation Comprehensive Examination Psychiatric Diagnostic Evaluation Comprehensive Examination 95968 DAI MCDOWELL Spectacles Services Fitting Monofocal Except For Aphakia Spectacles Services Fitting Monofocal Except For Aphakia 79530 KEN GARCIA Determination Of Refractive State Determination Of Refractive State 19485 KEN GARCIA Ophthalmological Prior Patient Start Comprehensive Care Ophthalmological Prior Patient Start Comprehensive Care [id number] KEN GARCIA Td Vaccine Seven Years Of Age And Above Td Vaccine Seven Years Of Age And Above 23483 DIANA RACHEL Immunization Administration By Injection, One Vaccine Immunization Administration By Injection, One Vaccine 34086 DIANA RACHEL Hepatitis B Vaccine (Active) Adult Dosage DIANA RACHEL Immunization Administration By Injection, One Vaccine Immunization Administration By Injection, One Vaccine 22120 DIANA RACHEL Immunization Administration By Injection, One Vaccine Immunization Administration By Injection, One Vaccine 15590 DIANA RACHEL Hepatitis B Vaccine (Active) Adult Dosage RACHEL, DIANA S DoD Immunization Administration By Injection, One Vaccine Immunization Administration By Injection, One Vaccine 02611 006 MILAGRO MARTELL DoD Typhoid Vaccine Vi Capsular Polysaccharide, For Intramus Use Typhoid Vaccine Vi Capsular Polysaccharide, For Intramus Use 89751 006 MILAGRO MARTELL [facility] Chiropractic Manip Treatmt (CMT) Spinal One To Two Regions Chiropractic Manip Treatmt (CMT) Spinal One To Two Regions 55279 006 BHATTI, SPR[place] N DoD Modalities Heat Hot Packs Modalities Heat Hot Packs 24176 006 BHATTI, [place] N cx, tx 20 mins DoD Mobilization Soft Ti ue Mobilization Soft Tissue 91988 006 BHATTI, [place] N pivot tx subocc. 8m DoD A isted Exercises For ROM Assisted [place] ROM 00850 006 BHATTI, [place] N 02/28/2006 DoD Modalities Electrical Stimulation Unattended Modalities Electrical Stimulation Unattended 64209 006 BHATTI, [place] N IFC, 50-150, 100% 20 mins, left mid back, max 18 DoD Modalities Traction Modalities Traction 55678 0 006 BHATTI, [place] N intersegmental: tx 10, lx 7 10 mins DoD Chiropractic Manip Treatmt (CMT) Spinal One To Two Regions Chiropractic Manip Treatmt (CMT) Spinal One To Two Regions 49463 006 BHATTI, [place] N DoD Modalities Traction Modalities Traction 03025 0 006 BHATTI, [place] N Intersegmental - tx 10, lx 7, 10 min. DoD Modalities Electrical Stimulation Unattended Modalities Electrical Stimulation Unattended 17116 006 BHATTI, [place] N IFC, 100%, 80-150, 20 min, left tx paraspinal, max 20 DoD Modalities Heat Hot Packs Modalities Heat Hot Packs 15129 006 BHATTI, [place] N Upper back 20 mins DoD A isted Exercises For ROM Assisted Exercises For ROM 08770 006 BHATTI, SPR[place] N 02/28/06 DoD Mobilization Soft Ti ue Mobilization Soft Tissue 57379 006 BHATTI, [place] N pivot tx subocc 8m DoD Chiropractic Manip Treatmt (CMT) Spinal One To Two Regions Chiropractic Manip Treatmt (CMT) Spinal One To Two Regions 17316 006 BHATTI, [place] N DoD A isted Exercises For ROM Assisted Exercises For ROM 60486 006 BHATTI, SPR[place] N 02/28/06 10m, reviewed with patient. DoD Modalities Traction Modalities Traction 25175 0 006 BHATTI, [place] N tx 10, lx 7, 10 mins DoD Modalities Heat Hot Packs Modalities Heat Hot Packs 53023 006 BHATTI, [place] N tx 20 mins DoD Mobilization Soft Ti ue Mobilization Soft Tissue 50915 006 BHATTI, [place] N pivot tx subocc 8m DoD Modalities Electrical Stimulation Unattended Modalities Electrical Stimulation Unattended 08990 006 BHATTI, [place] N IFC, 100%, 80-150, 20 mins, left midback, max 18 DoD Chiropractic Manip Treatmt (CMT) Spinal One To Two Regions Chiropractic Manip Treatmt (CMT) Spinal One To Two Regions 15219 006 BHATTI, [place] N DoD Mobilization Soft Ti ue Mobilization Soft Tissue 15668 006 BHATTI, [place] N pivot tx subocc. 8m DoD Modalities Electrical Stimulation Unattended Modalities Electrical Stimulation Unattended 54437 006 BHATTI, [place] N IFC 100% 80-150. 20 mins, left interscapular region, max 21 DoD Modalities Traction Modalities Traction 06333 0 006 BHATTI, [place] N Intersegmental - tx 9, lx 7, 10 min. DoD Modalities Heat Hot Packs Modalities Heat Hot Packs 28855 006 BHATTI, SPR[place] N 20 mins tx DoD A isted Exercises For ROM Assisted [place] ROM 13849 006 BHATTI, SPR[place] N 02/28/06 DoD Chiropractic Manip Treatmt (CMT) Spinal One To Two Regions Chiropractic Manip Treatmt (CMT) Spinal One To Two Regions 95057 006 BHATTI, [place] N DoD A isted Exercises For ROM Assisted [place] ROM 18338 006 BHATTI, SPR[place] N 02/28/2006 DoD Mobilization Soft Ti ue Mobilization Soft Tissue 67921 006 BHATTI, [place] N pivot tx subocc 10m DoD Modalities Heat Hot Packs Modalities Heat Hot Packs 26098 006 BHATTI, SPR[place] N 20 mins neck/upper back DoD Modalities Traction Modalities Traction 12719 0 006 BHATTI, [place] N Intersegmental - tx 9 , lx 7 , 10 min. DoD Modalities Electrical Stimulation Unattended Modalities Electrical Stimulation Unattended 61988 006 BHATTI, [place] N IFC- 100% 80-150, 20 mins, left interscapular region, max 26 DoD Chiropractic Manip Treatmt (CMT) Spinal One To Two Regions Chiropractic Manip Treatmt (CMT) Spinal One To Two Regions 84779 006 BHATTI, [place] N DoD Modalities Electrical Stimulation Unattended Modalities Electrical Stimulation Unattended 46436 006 BHATTI, [place] N IFC, 100%, 80-150, 20 min, left interscap, max 21 pt notes relief. DoD Modalities Traction Modalities Traction 21553 0 006 BHATTI, [place] N Intersegmental - tx 9, lx 7, 10 min. DoD A isted Exercises [place] 08013 006 BHATTI, [place] N Cervical Therex: Tension release stretches for the neck. Reviewed with patient, handout provided. Corrective postural therex: Anterior chest/pec. major stretch, standing wall posture ex. for the neck and mid back. Reviewed with patient, handout provided. DoD Mobilization Soft Ti ue Mobilization Soft Tissue 58555 006 BHATTI, SPR[place] N pivot tx subocc 10m DoD Modalities Heat Hot Packs Modalities Heat Hot Packs 98918 006 BHATTI, SPR[place] N 20m tx. 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 History of tobacco use LIFETIME NON-TOBACCO USER 11/27/2017 [facility] History of tobacco use QUIT TOBACCO USE 1-7 YEARS AGO 10/12/2016 [facility] History of tobacco use QUIT TOBACCO USE 1-7 YEARS AGO 09/25/2015 [facility] History of tobacco use QUIT TOBACCO USE 1-7 YEARS AGO 10/05/2013 PT HAS QUIT LES THAN A YEAR AGO. [facility] This section is an empty social history section. [facility] Plan of Care List of future care activities from [facility] facilities. Additional future care activities may be listed in the Assessment and Plan section. Date/Time Care Activity Care Activity Detail Facili ty 09/20/2024 AMBULATORY - MEDICINE [facility] 11/10/2024 AMBULATORY - MEDICINE [facility] 07/19/2024 Consult Order COMMUNITY CARE-D ENTAL GENERAL Cons Seed Expert's Choice [facility] 07/22/2024 Consult Order COMMUNITY CARE-D ENTAL GENERAL Cons Seed Expert's Choice [facility] 07/22/2024 Consult Order COMMUNITY CARE-D ENTAL GENERAL Cons Seed Expert's Choice [facility] Advance Directives List of completed, amended, or rescinded Advance Directives on record at [facility] facilities. An actual copy of the Directive is not included. Date Advance Directive Provider Source 03/06/2023 ADVANCE DIRECTIVE BEV PETTTI [facility] 04/20/2020 ADVANCE DIRECTIVE DISCUSSION ERUM MARTÍNEZ [facility] 02/24/2020 ADVANCE DIRECTIVE DISCUSSION POOL FUENTES [facility] 10/30/2016 ADVANCE DIRECTIVE KULDEEP FAM [facility]
--- OUTSIDE RECORDS SUMMARY | 2024-08-31 21:06 | XMS_ITS ---
Author Name [facility] Organization [facility] [place] Address [address] [place] [address] Care Team Providers Care Inclinometer Tester Name Role Phone MARTIN BOWERS Primary Care Provider OPAL Mckay Primary Care Provider Unav ailable Selected Encounter This section includes the information on record at [place] for the Encounter. Date/Time Encounter Type Encounter Description Reason Provider Source Sep 10, 2023 09:45 AM CASE MANAGEMENT [facility] ICD-10-CM Z65.3 Problems related to other legal circumstances MOIRA RODRIGUEZ Encounter Template Text not used by [place] Assessments - Encounter Diagnoses This section includes the primary and secondary diagnoses documented for the Encounter. Date/Time Primary/Secondary Diagnosis Diagnosis Name Provider Source Sep 10, 2023 04:00 PM PRIMARY Problems related to other legal circumstances [facility]IGUEZ [facility] Sep 10, 2023 04:00 PM SECONDARY Schizoaffective disorder, bipolar type MOIRA [facility]IGUEZ [facility] Plan of Treatment: Future Appointments (+ 6 months) and Future Tests (+/- 45 days) The Plan of Treatment section includes future care activities for the patient from all [place] treatmentfacilities. This section includes future appointments and future orders which are active, pending or scheduled. Future Appointments This section includes appointments that were scheduled to occur 6 months from the date of the Encounter, up to a maximum of 20 appointments. The data comes from all [place] treatment facilities. Appointment Date/Time Appointment Type Appointme nt Facility Name Sep 11, 2023 11:15 AM [facility] Sep 26, 2023 02:30 PM [facility] Nov 19, 2023 09:30 AM [facility] Nov 19, 2023 10:00 AM [facility] [place] [facility] [facility] [place] [facility] Nov 19, 2023 02:00 PM AMBULATORY - MEDICINE [facility] Dec 03, 2023 10:30 AM [facility] Social History: Smoking Status (Most current) and Tobacco Use (All prior to encounter date) This section includes the most current, and the historical, smoking and tobacco- related health factors from the [place] facility where the Encounter took place. Current Smoking Status This section includes the most current smoking, or tobacco-related health factor, from the [place] facility where the Encounter took place. Date/Time Current Smoking Status Comment Facil it February 10, 2023 01:00 PM ORYX ADMIT TOBACCO SCREEN YES [facility] Tobacco Use History This section includes a history of the smoking, or tobacco-related health factors, that were collected on or before the date of the Encounter. The data comes from the [place] facility where the Encounter took place. Date/Time Smoking Status/Tobac co Use Comment Facility February 10, 2023 01:00 PM ORYX ADMIT TOBACCO [facility] February 10, 2023 01:00 PM ORYX DAILY TOBACCO OPERATIONS PROCESSOR RECEIVED [facility] February 10, 2023 01:00 PM ORYX DAILY TOBACCO MEDS ORDERED [facility] Sep 02, 2022 08:00 AM VA-TOBACCO USE 30 YEARS OR MORE [facility] Sep 02, 2022 08:00 AM VA-TOBACCO USE ADVICE [facility] Sep 02, 2022 08:00 AM VA-TOBACCO USE OPERATIONS PROCESSOR YES [facility] Sep 02, 2022 08:00 AM VA-TOBACCO USE MED NOTIFY PROVIDER [facility] Sep 02, 2022 08:00 AM VA-TOBACCO USE WI 30 MIN OF WAKEUP [facility] Sep 02, 2022 08:00 AM VA-TOBACCO USER EVERY DAY [facility] Oct 12, 2016 09:13 AM QUIT TOBACCO USE 1-7 YEARS AGO [facility] Sep 25, 2015 10:24 AM QUIT TOBACCO USE 1-7 YEARS AGO [facility] Oct 05, 2013 03:03 PM QUIT TOBACCO USE 1-7 YEARS AGO PT HAS QUIT LES THAN A YEAR AGO. [facility] Oct 05, 2013 03:03 PM QUIT TOBACCO USE IN PAST YEAR [facility] Advance Directives: All historical and current Section Date Range: From patient's date of to the date document was created. This section includes ALL of a patient's completed or amended [place] Advance and Rescinded Directives. The entries below indicate that a directive exists for the patient, but an actual copy is not included with this document. The data comes from all [place] facilities. Date Advance Directives Provider Source Mar 06, 2023 ADVANCE DIRECTIVE DISCUSSION BEV PETTIT [facility] Mar 06, 2023 ADVANCE DIRECTIVE BEV PETTIT [facility] Apr 20, 2020 ADVANCE DIRECTIVE DISCUSSION ERUM MARTÍNEZ [facility] Feb 24, 2020 ADVANCE DIRECTIVE DISCUSSION POOL FUENTES [facility] Oct 30, 2016 ADVANCE DIRECTIVE KULDEEP FAM [facility] Encounter Notes: All associated encounter notes This section contains the clinical notes associated to the Encounter. Date/Time Encounter Note(s) Provider Source Sep 10, 2023 03:52 PM MENTAL HEALTH OUTR EACH NOTE: LOCAL TITLE: JUSTICE OUTREACH PROGRESS NOTE STANDARD TITLE: MENTAL HEALTH OUTREACH NOTE DATE OF NOTE: SEP 10, 2023@15:52 ENTRY DATE: SEP 10, 2023@15:52:55 AUTHOR: MOIRA RODRIGUEZ EXP COSIGNER: URGENCY: STATUS: COMPLETED VJO Progress Note Encounter length: 15 min Location: [facility] Purpose of Visit/Content: observed in courtroom lobby and adjusto writer operator exchanged greeting having prior contact re: court matters this year. [place] had declined further VJO c/m. His atty approached adjusto writer operator during recess to inquire about [facility] services. Brief meeting facilitated with as his atty is hoping to propose diversion for disposition of his current case. noted he was no longer at [place] (currently residing with his parents- prior restraining order has been eliminated), was not adhering to a psychotropic medication regimen and was currently sober. He asked what treatment he needed to which adjusto writer operator suggested resuming medication given his current diagnosis by scheduling a med management appt on his own. Should he desire additional treatment, he was encouraged to contact this adjusto writer operator for an assessment. [place] provided adjusto writer operator's number before encounter ended amicably. Primary Problems/DX: schizoaffective dx, bipolar type, AUD, severe in remission Secondary Problems/DX: legal matters Assessment: Orientation: x's 4 Appearance: appears stated age, obvious weight loss observed, dressed in jeans and light jacket Behavior: guarded but relatively affable Mood: euthymic Affect: congruent Speech: wnl Thought Process: cogent Thought Content: relevant to subject matter Insight: Judgment: Safety Assessment: not assessed due to public setting [place] Goals: Intervention: psychosocial support Plan: await call from [place] NEXT COURT DATE: Oct in [place] /brown/ MOIRA RODRIGUEZ LCSW LICENSED 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
--- OUTSIDE RECORDS SUMMARY | 2024-08-31 21:09 | XMS_ITS | Encounter Summary ---
Author Name [facility] [facility] [place] Organization [place] Address [address] [place] [address] Care Team Providers Care Professor/Nurse Anesthetist Name Role Phone BOWERS, MARTIN Primary Care Provider OPAL Mckay Primary Care Provider Unav ailable Selected Encounter This section includes the information on record at MA for the Encounter. Date/Time Encounter Type Encounter Description Reason Provider Source Nov 19, 2023 09:30 AM PSYTX W PT 30 MINUTES [facility] - IND ICD-10-CM F25.0 Schizoaffective disorder, bipolar type LALO GARCIA Azael Encounter Template Text not used by MA Assessments - Encounter Diagnoses This section includes the primary and secondary diagnoses documented for the Encounter. Date/Time Primary/Secondary Diagnosis Diagnosis Name Provider Source Nov 19, 2023 10:44 AM PRIMARY Schizoaffective disorder, bipolar type LALO GARCIA [facility] Plan of Treatment: Future Appointments (+ 6 months) and Future Tests (+/- 45 days) The Plan of Treatment section includes future care activities for the patient from all [place] treatmentfacilities. This section includes future appointments and future orders which are active, pending or scheduled. Future Appointments This section includes appointments that were scheduled to occur 6 months from the date of the Encounter, up to a maximum of 20 appointments. The data comes from all [place] treatment facilities. Appointment Date/Time Appointment Type Appointme nt Facility Name Dec 03, 2023 10:30 AM AMBULATORY [facility] Social History: Smoking Status (Most current) and Tobacco Use (All prior to encounter date) This section includes the most current, and the historical, smoking and tobacco- related health factors from the [place] facility where the Encounter took place. Current Smoking Status This section includes the most current smoking, or tobacco-related health factor, from the [place] facility where the Encounter took place. Date/Time Current Smoking Status Comment [facility] it Nov 19, 2023 10:00 AM VA-TOBACCO USER EVERY DAY [facility] Tobacco Use History This section includes a history of the smoking, or tobacco-related health factors, that were collected on or before the date of the Encounter. The data comes from the [place] facility where the Encounter took place. Date/Time Smoking Status/Tobac co Use Comment Facility Nov 19, 2023 10:00 AM VA-TOBACCO USE AD[facility]ICE [facility] Nov 19, 2023 10:00 AM VA-TOBACCO USE LOADING DOCK HAND NO [facility] Nov 19, 2023 10:00 AM VA-TOBACCO USE MED NO [facility] Nov 19, 2023 10:00 AM VA-TOBACCO USE WI 30 MIN OF WAKEUP [facility] Nov 19, 2023 10:00 AM VA-TOBACCO USER EVERY DAY [place] [facility] [place] [facility] February 10, 2023 01:00 PM ORYX ADMIT TOBACCO SCREEN YES [place] [facility] [facility] February 10, 2023 01:00 PM ORYX ADMIT TOBACCO USE CIGS GR 5D [place] [facility] February 10, 2023 01:00 PM ORYX DAILY TOBACCO LOADING DOCK HAND RECEIVED [facility] [place] [facility] February 10, 2023 01:00 PM ORYX DAILY TOBACCO MEDS ORDERED [facility] Sep 02, 2022 08:00 AM VA-TOBACCO USE 30 YEARS OR MORE [facility] [place] [facility] Sep 02, 2022 08:00 AM VA-TOBACCO USE ADVICE [facility] Sep 02, 2022 08:00 AM VA-TOBACCO USE LOADING DOCK HAND YES [facility] Sep 02, 2022 08:00 AM VA-TOBACCO USE MED NOTIFY PROVIDER [facility] Sep 02, 2022 08:00 AM VA-TOBACCO USE WI 30 MIN OF WAKEUP [facility] Sep 02, 2022 08:00 AM VA-TOBACCO USER EVERY DAY [facility] Oct 12, 2016 09:13 AM QUIT TOBACCO USE 1-7 YEARS AGO [facility] Sep 25, 2015 10:24 AM QUIT TOBACCO USE 1-7 YEARS AGO [facility] Oct 05, 2013 03:03 PM QUIT TOBACCO USE 1-7 YEARS AGO PT HAS QUIT LES THAN A YEAR AGO. [facility] Oct 05, 2013 03:03 PM QUIT TOBACCO USE IN PAST YEAR [facility] Advance Directives: All historical and current Section Date Range: From patient's date of to the date document was created. This section includes ALL of a patient's completed or amended [place] Advance and Rescinded Directives. The entries below indicate that a directive exists for the patient, but an actual copy is not included with this document. The data comes from all [place] facilities. Date Advance Directives Provider Source Mar 06, 2023 ADVANCE DIRECTIVE BEV PETTIT [facility] Mar 06, 2023 ADVANCE DIRECTIVE DISCUSSION BEV PETTIT [facility] Apr 20, 2020 ADVANCE DIRECTIVE DISCUSSION ERUM MARTÍNEZ [facility] Feb 24, 2020 ADVANCE DIRECTIVE DISCUSSION POOL FUENTES [facility] Oct 30, 2016 ADVANCE DIRECTIVE KULDEEP FAM [facility] Encounter Notes: All associated encounter notes This section contains the clinical notes associated to the Encounter. Date/Time Encounter Note(s) Provider Source Nov 19, 2023 10:00 AM PSYCHOLOGY NOTE: LOCAL TITLE: PSYCHOLOGY NOTE STANDARD TITLE: PSYCHOLOGY NOTE DATE OF NOTE: NOV 19, 2023@10:00 ENTRY DATE: NOV 19, 2023@10:00:42 AUTHOR: LALO GARCIA COSIGNER: URGENCY: STATUS: COMPLETED Date of session: Oct Duration of session: 30 Diagnosis: Schizoaffective, Bipolar type Presenting Problem ( report): [facility] for follow-up on mood problems. Reports low motivation, somewhat apathetic. Has things it would be useful to get done (getting his drivers' license, applying for SSDI) but doesn't get around to it. Is staying sober (a condition for staying in his parents' home). 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 [place] a sense of purpose. He's glad to be spending some time with his parents in their older years, but they're caring for him as much as the reverse, so it doesn't give him that sense of meaning. Lack of license limits him (his moather is waiting in the car today). Specific mental health/clinical interventions: Treatment planning: He's not interested in any groups, or in AA, and lacks the transportation to do CWT, a program he's aware of from his days in [place]. He remembers he felt better when he went to the gym while he was on [address], but again motivation is an issue. He had run [facility] of [facility] [place] recently after missing an jeri't with Dr. Villanueva, and we were able to set up an jeri't for after this meeting. Denies SI. Mental Status/Clinical Impression: 1. Appearance (grooming, attire, apparent age) within normal limits: My mother said, aren't you even going to shave? He shrugs. 2. Thought content was organized and goal directed: Yes 3. Speech was coherent and unimpaired: Yes 4. Affect was appropriate and unremarkable: Compatible with stated low mood, lack of motivation. 5. Demeanor was calm, with no signs of agitation or restlessness: Yes 6. Problems with sleep or appetite reported: I don't sleep all that well. 7. Psychosis (hallucinations or delusions): None noted Date of next planned contact: 2 weeks /brown/ LALO GARCIA, PhD Clinical Psychologist Signed: 11/19/2023 10:44 LALO GARCIA [facility]
--- OUTSIDE RECORDS SUMMARY | 2024-08-31 21:09 | XMS_ITS ---
Author Name [facility] [place] Organization [place] Address [address] [place] [address] Care Team Providers Care Online Project Manager Name Role Phone MARTIN BOWERS Primary Care Provider OPAL Mckay Primary Care Provider Unav ailable Selected Encounter This section includes the information on record at MA for the Encounter. Date/Time Encounter Type Encounter Description Reason Pro vider Source Sep 26, 2023 02:30 PM Outpatient Encounter MENTAL HEALTH [facility] Encounter Template Text not used by MA Plan of Treatment: Future Appointments (+ 6 [...] Date/Time Appointment Type Appointme nt Facility Name Nov 19, 2023 09:30 AM AMBULATORY - [facility]IAT[facility] [place] [facility] Nov 19, 2023 10:00 AM AMBULATORY - [facility]IATRY [facility] Nov 19, 2023 02:00 PM AMBULATORY - MEDICINE [place] [facility] [place] [facility] Dec 03, 2023 10:30 AM AMBULATORY - [facility]IAT[facility] Social History: Smoking Status (Most current) [...] 01:00 PM ORYX ADMIT TOBACCO SCREEN YES [facility] Tobacco Use History This section includes a history of the smoking, or tobacco-related health factors, that were collected on or before the date of the Encounter. The data comes from the [place] facility where the Encounter took place. Date/Time Smoking Status/Tobac co Use Comment Facility February 10, 2023 01:00 PM ORYX ADMIT TOBACCO USE CIGS GR 5D [place] [facility] [place] [facility] February 10, 2023 01:00 PM ORYX DAILY TOBACCO TIRE SPECIALIST RECEIVED [facility] February 10, 2023 01:00 PM ORYX DAILY TOBACCO MEDS ORDERED [facility] Sep 02, 2022 08:00 AM VA-TOBACCO USE 30 YEARS OR MORE [place] [facility] [place] [facility] Sep 02, 2022 08:00 AM VA-TOBACCO USE ADVICE [facility] Sep 02, 2022 08:00 AM VA-TOBACCO USE TIRE SPECIALIST YES [place] [facility] [place] [facility] Sep 02, 2022 08:00 AM VA-TOBACCO USE MED NOTIFY PROVIDER [facility] Sep 02, 2022 08:00 AM VA-TOBACCO USE WI 30 MIN OF WAKEUP [place] [facility] [place] [facility] Sep 02, 2022 08:00 AM VA-TOBACCO USER EVERY DAY [place] [facility] [place] [facility] Oct 12, 2016 09:13 AM QUIT TOBACCO USE 1-7 YEARS AGO [place] [facility]TR [place] [facility] Sep 25, 2015 10:24 AM QUIT TOBACCO USE 1-[address] [facility] Oct 05, 2013 03:03 PM QUIT TOBACCO USE 1-7 YEARS AGO PT HAS QUIT LES THAN A YEAR AGO. [facility] Oct 05, 2013 03:03 PM QUIT TOBACCO USE IN PAST YEAR [facility] Advance Directives: All historical and current Section [...] Mar 06, 2023 ADVANCE DIRECTIVE BEV PETTIT [facility] Mar 06, 2023 ADVANCE DIRECTIVE DISCUSSION BEV PETTIT [facility] Apr 20, 2020 ADVANCE DIRECTIVE DISCUSSION ERUM MARTÍNEZ [facility] Feb 24, 2020 ADVANCE DIRECTIVE DISCUSSION POOL F[facility]ENTES [facility] Oct 30, 2016 ADVANCE DIRECTIVE KULDEEP FAM [facility] Encounter Notes: All associated encounter notes This section contains the clinical notes associated to the Encounter. Date/Time Encounter Note(s) Provider Source Oct 22, 2023 09:15 AM ADMINISTRATIVE NOTE: LOCAL TITLE: ADMINISTRATIVE RECALL NOTE STANDARD TITLE: ADMINISTRATIVE NOTE DATE OF NOTE: OCT 22, 2023@09:15 ENTRY DATE: OCT 22, 2023@09:16:03 AUTHOR: SHELLI DAVE EXP COSIGNER: URGENCY: STATUS: COMPLETED ADMINISTRATIVE RECALL NOTE Has ADDENDA RTC orders: Unable to contact patient: Attempts to contact: 1st attempt: Left voicemail 2nd attempt: Letter mailedDisposition onOct 3rd attempt: 4th attempt: /travon DAVE PICKLE CUTTER Signed: 10/22/2023 09:19 10/24/2023 ADDENDUM STATUS: COMPLETED RTC orders: Unable to contact patient: Attempts to contact: 1st attempt: Left voicemail 2nd attempt: Letter mailedDisposition onOct 3rd attempt: left vm 4th attempt: /travon DAVE PICKLE CUTTER Signed: 10/24/2023 09:31 10/27/2023 ADDENDUM STATUS: COMPLETED RTC orders: Unable to contact patient: Attempts to contact: 1st attempt: Left voicemail 2nd attempt: Letter mailedDisposition onFe 3rd attempt: left vm 4th attempt: Left vm /brown/ SHELLI DAVE PICKLE CUTTER Signed: 10/27/2023 13:[address] [facility] Sep 26, 2023 03:07 PM CLERICAL NOTE: LOCAL TITLE: APPOINTMENT NO SHOW STANDARD TITLE: CLERICAL NOTE DATE OF NOTE: SEP 26, 2023@15:07 ENTRY DATE: SEP 26, 2023@15:08:02 AUTHOR: LALO GARCIA EXP COSIGNER: URGENCY: STATUS: COMPLETED Patient Name: JEYSON SANCHEZ Patient SSN: [id number] Date and time of Appointment No show : 09/26/23 14:30 PATIENT PHONE - PHONE NUMBER [[email or web address]] - Patient's medical record was reviewed. Follow-up actions were determined and initiated: Please check/complete as applies: [X]Telephoned Directly [ ]Re-scheduled for next available appt [ ]Sent a N0-show letter ( must call for appointment) [ ]Other (Emergent/Overbook, etc.): Additional Comments: Left VM Future Clinic Visits 11/19/2023 14:00 CWM/NO/PACT 4 /brown/ LALO GARCIA, PhD Clinical Psychologist Signed: 09/26/2023 15:[address] [facility]
--- OUTSIDE RECORDS SUMMARY | 2024-08-31 21:09 | XMS_ITS ---
Author Name [facility] [place] Organization [place] Address [address] [place] [address] Care Team Providers Care Show Card Letterer Name Role Phone MARTIN BOWERS Primary Care Provider OPAL Mckay Primary Care Provider Unav ailable Selected Encounter This section includes the information on record at [place] for the Encounter. Date/Time Encounter Type Encounter Description Reason Provider Source Nov 19, 2023 10:00 AM OFFICE O/P EST LOW 20 MIN [facility] - IND ICD-10-CM F25.0 Schizoaffective disorder, bipolar type DERECK LONG MD [facility] Encounter Template Text not used by [place] Assessments - Encounter Diagnoses This section includes the primary and secondary diagnoses documented for the Encounter. Date/Time Primary/Secondary Diagnosis Diagnosis Name Provider Source Nov 19, 2023 10:23 AM PRIMARY Schizoaffective disorder, bipolar type DERECK LONG MD [facility] Nov 19, 2023 10:23 AM SECONDARY Alcohol dependence with alcohol-induced mood disorder DERECK LONG MD [facility] Plan of Treatment: Future Appointments (+ 6 months) and Future Tests (+/- 45 days) The Plan of Treatment section includes future care activities for the patient [facility] This section includes future appointments and future [...] 03, 2023 10:30 AM AMBULATORY - PSYCHIATRY [facility] Social History: Smoking Status (Most current) [...] took place. Date/Time Current Smoking Status Comment [facility] Nov 19, 2023 10:00 AM VA-TOBACCO USER EVERY DAY [facility] Tobacco Use History This section includes a history of the smoking, or tobacco-related health factors, that were collected on or before the date of the Encounter. The data comes from the [place] facility where the Encounter took place. Date/Time Smoking Status/Tobac co Use Comment Facility Nov 19, 2023 10:00 AM VA-TOBACCO USE AD[facility]ICE [facility] Nov 19, 2023 10:00 AM VA-TOBACCO USE CARDIAC MONITOR TECHNICIAN NO [facility] Nov 19, 2023 10:00 AM VA-TOBACCO USE MED NO [facility] Nov 19, 2023 10:00 AM VA-TOBACCO USE WI 30 MIN OF WAKEUP [facility] Nov 19, 2023 10:00 AM VA-TOBACCO USER EVERY DAY [facility] [place] [facility] February 10, 2023 01:00 PM ORYX ADMIT TOBACCO SCREEN YES [facility] February 10, 2023 01:00 PM ORYX ADMIT TOBACCO USE CIGS GR 5D [facility] February 10, 2023 01:00 PM ORYX DAILY TOBACCO CARDIAC MONITOR TECHNICIAN RECEIVED [facility] February 10, 2023 01:00 PM ORYX DAILY TOBACCO MEDS ORDERED [facility] Sep 02, 2022 08:00 AM VA-TOBACCO USE 30 YEARS OR MORE [facility] Sep 02, 2022 08:00 AM VA-TOBACCO USE ADVICE [facility] Sep 02, 2022 08:00 AM VA-TOBACCO USE CARDIAC MONITOR TECHNICIAN YES [facility] Sep 02, 2022 08:00 AM VA-TOBACCO USE MED NOTIFY PROVIDER [facility] Sep 02, 2022 08:00 AM VA-TOBACCO USE WI 30 MIN OF WAKEUP [facility] Sep 02, 2022 08:00 AM VA-TOBACCO USER EVERY DAY [facility] Oct 12, 2016 09:13 AM QUIT TOBACCO USE 1-7 YEARS AGO [facility] Sep 25, 2015 10:24 AM QUIT TOBACCO USE 1-7 YEARS AGO [facility] Oct 05, 2013 03:03 PM QUIT TOBACCO USE 1-7 YEARS AGO PT HAS QUIT LES THAN A YEAR AGO. [facility] Oct 05, 2013 03:03 PM QUIT TOBACCO USE IN PAST YEAR [facility] Advance Directives: All historical and current [...] Mar 06, 2023 ADVANCE DIRECTIVE BEV PETTIT [facility] Mar 06, 2023 ADVANCE DIRECTIVE DISCUSSION BEV PETTIT [facility] Apr 20, 2020 ADVANCE DIRECTIVE DISCUSSION ERUM MARTÍNEZ [facility] Feb 24, 2020 ADVANCE DIRECTIVE DISCUSSION POOL FUENTES [facility] Oct 30, 2016 ADVANCE DIRECTIVE KULDEEP FAM [facility] Encounter Notes: All associated encounter notes This section contains the clinical notes associated to the Encounter. Date/Time Encounter Note(s) Provider Source Nov 19, 2023 10:01 AM PSYCHIATRY NOTE: LOCAL TITLE: PSYCHIATRY/FOLLOW-UP NOTE STANDARD TITLE: PSYCHIATRY NOTE DATE OF NOTE: NOV 19, 2023@10:01 ENTRY DATE: NOV 19, 2023@10:01:43 AUTHOR: JAMES LONG EXP COSIGNER: URGENCY: STATUS: COMPLETED Medications were reconciled with and he was offered a copy of his Medication List and he accepts Active Outpatient Medications: 1) ACETAMINOPHEN 500MG TAB TAKE TWO TABLETS BY MOUTH TWICE DAILY NEEDED 2) ALBUTEROL 90MCG (CFC-F) 200D ORAL INHL INHALE 2 PUFFS BY MOUTH FOUR TIMES DAILY NEEDED FOR BRONCHOSPASM 3) METHOCARBAMOL 750MG TAB TAKE ONE TABLET BY MOUTH THREE TIMES DAILY NEEDED 4) OLANZAPINE 5MG TAB TAKE ONE TABLET BY MOUTH AT BEDTIME JEYSON SNACHEZ is a [place], 48 yo, male who was [facility] as ma walk-in for 20 minutes for medication management. Two identifiers were used. CC: I wondering if I can get back on the medications you had me on last time. I've been kind of depressed lately, for a while. Paras complains of sleep disturbance also. Paras reports that he no longer has restless legs at night. No alcohol and no substance use, no. Mood is, depressed with no suicidal or homicidal ideations. Appetite is, fair, I actually gained some weight since I left [place]. No mood swings. Paras carries a diagnosis of schizoaffective disorder bipolar type. Denies haring any voices but admits to voices in the past. Discussed restart of olanzapine and titrate doses as needed. Patient education given including not taking anyone else's medications or giving his medications to anyone else and to secure and protect his medications from theft and children. Paras is agreeable. MSE: JEYSON SANCHEZ is a 48 yo, male who is casually dressed wearing jeans, a t-shirt, a jacket and a cap. He has good personal hygiene. He is alert and oriented in all spheres, pleasant and cooperative with good contact during interview. Speech is goal directed with normal kinetics. Mood and affect is blunted. Memory appears to be intact. No suicidal or homicidal ideations. No hallucinations or delusions were elicited. Good general fund of knowledge. Insight and judgement is fair. Assessment: Schizoaffective disorder, bipolar type. AUD in remission Plan: Continue previous olanzapine as above. RTC 2-3 months or earlier if needed. Tobacco Use Screening: The patient uses tobacco every day. The patient uses tobacco within 30 minutes of waking up. The patient has been smoking or using tobacco for thirty years or more. Patient was advised to quit smoking and/or using tobacco. Discussion with patient included: - Quitting smoking or tobacco use is one of the most important things you can do to protect and improve your health and [place] has the resources to support you. - Set a quit date when you are ready to quit. - Get support from your family and friends. - Review any past quit attempts- What helped? What didn't? - On the day you plan to quit, get rid of all cigarettes and tobacco products from your home, car or work. - Using a combination of behavioral counseling or other support strategies and FDA-approved cessation medications is the most effective way to ensure success in quitting. Patient was offered Behavioral Counseling and other support strategies to assist with quitting. Discussion with patient included: - Behavioral counseling or other support strategies greatly increases your chances of successfully quitting smoking or tobacco use by helping you develop a quit plan and providing support and other strategies to make behavioral changes to help you quit. - [place] has a number of behavioral counseling options to help you with quitting, including: * Provide information about the facility smoking or tobacco use treatment options or clinics * [place]'s national quitline, 7-575-RWEQ-VET, with counseling available Friday-Friday The patient was not interested in receiving additional information about how to use the treatment options discussed. Patient was offered FDA-approved cessation medications. Discussion with patient included: - Medications for Nicotine replacement therapy such as the patch, gum or lozenge, and other medications such as varenicline or bupropion, can play an important role in the initial weeks and months after you quit smoking or tobacco use. - Medications help with cravings and withdrawal symptoms and they greatly increase your chances of successfully quitting. The patient was not interested in a prescription for tobacco cessation medications. Sexual Orientation: The patient thinks of their sexual orientation as: Straight or Heterosexual /es/ JAMES LONG JR, MD STAFF PSYCHIATRIST Signed: 11/19/2023 10:24 JAMES LONG MD [facility]
--- OUTSIDE RECORDS SUMMARY | 2024-08-31 21:09 | XMS_ITS ---
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 Date/Time Encounter Type Encounter Description Reason Pro vider Source Nov 19, 2023 02:00 PM Outpatient Encounter PRIMARY CARE/MEDICINE IHE Encounter Template Text not used by [place] Plan of Treatment: Future Appointments (+ 6 months) and Future Tests (+/- 45 days) The Plan of Treatment section includes future care activities for the patient from all [place] treatmentfacilities. This section includes future appointments and future orders which are active, pending or scheduled. Future Appointments This section includes appointments that were scheduled to occur 6 months from the date of the Encounter, up to a maximum of 20 appointments. The data comes from all [place] treatment facilities. Appointment Date/Time Appointment Type Appointme nt Facility Name Dec 03, 2023 10:30 AM [facility] Social History: Smoking Status (Most current) and Tobacco Use (All prior to encounter date) This section includes the most current, and the historical, smoking and tobacco- related health factors from the [place] facility where the Encounter took place. Current Smoking Status This section includes the most current smoking, or tobacco-related health factor, from the [place] facility where the Encounter took place. Date/Time Current Smoking Status Comment Gino hanson Nov 19, 2023 10:00 AM VA-TOBACCO USER EVERY DAY [facility] Tobacco Use History This section includes a history of the smoking, or tobacco-related health factors, that were collected on or before the date of the Encounter. The data comes from the [place] facility where the Encounter took place. Date/Time Smoking Status/Tobac co Use Comment Facility Nov 19, 2023 10:00 AM VA-TOBACCO USE ADVICE [facility] Nov 19, 2023 10:00 AM VA-TOBACCO USE GUN NUMBER NO [facility] Nov 19, 2023 10:00 AM VA-TOBACCO USE MED NO [facility] Nov 19, 2023 10:00 AM VA-TOBACCO USE WI 30 MIN OF WAKEUP [facility] [place] [facility] Nov 19, 2023 10:00 AM VA-TOBACCO USER EVERY DAY [facility] [place] [facility] February 10, 2023 01:00 PM ORYX ADMIT TOBACCO SCREEN YES [facility] [place] [facility] February 10, 2023 01:00 PM ORYX ADMIT TOBACCO USE CIGS GR 5D [facility] [place] [facility] February 10, 2023 01:00 PM ORYX DAILY TOBACCO [facility] [place] [facility] February 10, 2023 01:00 PM ORYX DAILY TOBACCO MEDS ORDERED [facility] [place] [facility] Sep 02, 2022 08:00 AM VA-TOBACCO USE 30 YEARS OR MORE [facility] [place] [facility] Sep 02, 2022 08:00 AM VA-TOBACCO USE ADVICE [facility] [place] [facility] Sep 02, 2022 08:00 AM VA-TOBACCO USE GUN NUMBER YES [facility] [place] [facility] Sep 02, 2022 08:00 AM VA-TOBACCO USE MED NOTIFY PROVIDER [facility] Sep 02, 2022 08:00 AM VA-TOBACCO USE WI 30 MIN OF WAKEUP [facility] Sep 02, 2022 08:00 AM VA-TOBACCO USER EVERY DAY [facility] Oct 12, 2016 09:13 AM QUIT TOBACCO USE 1-7 YEARS AGO [facility] Sep 25, 2015 10:24 AM QUIT TOBACCO USE 1-7 YEARS AGO [facility] Oct 05, 2013 03:03 PM QUIT TOBACCO USE 1-7 YEARS AGO PT HAS QUIT LES THAN A YEAR AGO. [facility] Oct 05, 2013 03:03 PM QUIT TOBACCO USE IN PAST YEAR [facility] Advance Directives: All historical and current Section Date Range: From patient's date of to the date document was created. This section includes ALL of a patient's completed or amended [place] Advance and Rescinded Directives. The entries below indicate that a directive exists for the patient, but an actual copy is not included with this document. The data comes from all [place] facilities. Date Advance Directives Provider Source Mar 06, 2023 ADVANCE DIRECTIVE BEV PETTIT [facility] Mar 06, 2023 ADVANCE DIRECTIVE DISCUSSION BEV PETTIT [facility] Apr 20, 2020 ADVANCE DIRECTIVE DISCUSSION ERUM MARTÍNEZ [facility] Feb 24, 2020 ADVANCE DIRECTIVE DISCUSSION POOL FUENTES [facility] Oct 30, 2016 ADVANCE DIRECTIVE KULDEEP [facility] Encounter Notes: All associated encounter notes This section contains the clinical notes associated to the Encounter. Date/Time Encounter Note(s) Provider Source Nov 19, 2023 02:24 PM CLERICAL NOTE: LOCAL TITLE: APPOINTMENT NO SHOW STANDARD TITLE: CLERICAL NOTE DATE OF NOTE: NOV 19, 2023@14:24 ENTRY DATE: NOV 19, 2023@14:24:19 AUTHOR: QUINN WONG COSIGNER: URGENCY: STATUS: COMPLETED Patient Name: JEYSON SANCHEZ Patient SSN: [id number] Date and time of Appointment No show : 11/19/23 14:00 PATIENT PHONE - PHONE NUMBER [CELLULAR] - Patient's medical record was reviewed. Follow-up actions were determined and initiated: Please check/complete as applies: [X]Telephoned Directly [ ]Re-scheduled for next available appt [ ]Sent a N0-show letter ( must call for appointment) [ ]Other (Emergent/Overbook, etc.): Additional Comments: unable to r/s at time of call. He will call back to r/s. Future Clinic Visits 12/03/2023 10:30 RANDY/ANNELIESE/JOSE 01/01/2024 14:00 CWM/SIRISHA/ANNELIESE/ETHAN /brown/ QUINN WONG [facility] Signed: 11/19/2023 14:25 QUINN WONG [facility]
--- OUTSIDE RECORDS SUMMARY | 2024-08-31 21:11 | XMS_ITS ---
Author Name [facility] [place] Organization [facility] [place] Address [address] [place] [address] Care Team Providers Care Business Architect Name Role Phone MARTIN BOWERS Primary Care Provider OPAL Mckay Primary Care Provider Unav ailable Selected Encounter This section includes the information on record at [place] for the Encounter. Date/Time Encounter Type Encounter Description Reason Provider Source Jun 09, 2024 01:30 PM OFFICE O/P EST MOD 30 MIN PRIMARY CARE/MEDICINE ICD-10-CM I10 Essential (primary) hypertension OPAL REEVES IHAzael Encounter Template Text not used by CO Assessments - Encounter Diagnoses This section includes the primary and secondary diagnoses documented for the Encounter. Date/Time Primary/Secondary Diagnosis Diagnosis Name Provider Source Jun 09, 2024 05:06 PM PRIMARY Essential (primary) hypertension OPAL REEVES [facility] [place] [facility] Jun 09, 2024 05:06 PM SECONDARY Bipolar disorder, unspecified OPAL REEVES [facility] [place] [facility] Jun 09, 2024 05:06 PM SECONDARY Encounter for immunization CLARITA VALENCIA [facility] [place] [facility] Jun 09, 2024 05:06 PM SECONDARY Low back pain, unspecified LEANDROOPAL [facility] [place] [facility] Jun 09, 2024 05:06 PM SECONDARY Other asthma JojoSANTOSOPAL [facility] [place] [facility] Jun 09, 2024 05:06 PM SECONDARY Tinea unguium AlessandroGRUPOOPAL [facility] [place] [facility] Jun 09, 2024 05:06 PM SECONDARY Unilateral inguinal hernia, w/o obst or gangrene, recurrent JojoFerminGRUPOOPAL [facility] [place] [facility] Plan of Treatment: Future Appointments (+ 6 months) and Future Tests (+/- 45 days) The Plan of Treatment section includes future care activities for the patient [facility] This section includes future appointments and future orders which are active, pending or scheduled. Future Appointments This section includes appointments that were scheduled to occur 6 months from the date of the Encounter, up to a maximum of 20 appointments. The data comes from all [place] treatment facilities. Appointment Date/Time Appointment Type Appointme nt Facility Name Jun 17, 2024 02:00 PM AMBULATORY - PSYCHIATRY [facility] [place] [facility] Jul 06, 2024 01:00 PM AMBULATORY - MEDICINE [facility] [place] [facility] Jul 06, 2024 02:00 PM AMBULATORY - REHAB MEDICIN E [facility] [place] [facility] Jul 13, 2024 02:30 PM AMBULATORY - MEDICINE [facility] [place] [facility] Jul 14, 2024 10:30 AM AMBULATORY - MEDICINE [facility] [place] [facility] Jul 20, 2024 03:30 PM AMBULATORY - MEDICINE [facility] [place] [facility] Jul 26, 2024 01:30 PM AMBULATORY - MEDICINE [facility] [place] [facility] Jul 28, 2024 10:30 AM AMBULATORY - PSYCHIATRY [facility] [place] [facility] Aug 10, 2024 10:00 AM AMBULATORY - MEDICINE [facility] [place] [facility] Aug 10, 2024 03:00 PM AMBULATORY - MEDICINE [facility] [place] [facility] Sep 20, 2024 03:00 PM [facility] Nov 10, 2024 10:00 AM [facility]UL[facility]ORY - MEDICINE [facility] Active, Pending, and Scheduled Orders This section includes a listing of several types of active, pending, and scheduled orders, including clinic medications orders, diagnostic test orders, procedure orders and consult orders; where the start date of the order is 45 days before the date of the Encounter or 45 days after the date of theEncounter. The data comes from all [place] treatment facilities. Test Date/Time Test Type Test Details Facility Name Jun 09, 2024 01:58 PM Consult Order COMMUNITY CARE-GEN SURGERY Cons Tank Welder[facility] Jun 09, 2024 03:46 PM Consult Order PSYCHOTHER APY BHIP/NHM OUTPT Cons [facility] Jul 14, 2024 10:55 AM Consult Order REHAB MEDI CINE/NHM OUTPT Cons Tank Welder's Choice [facility] Jul 19, 2024 11:25 AM Consult Order COMMUNITY CARE-DENTAL GENERAL Cons Tank Welder's Choice [facility] Jul 22, 2024 08:51 AM Consult Order COMMUNITY CARE-DENTAL GENERAL Cons Tank Welder's Choice [facility] Jul 22, 2024 01:51 PM Consult Order COMMUNITY CARE-DENTAL GENERAL Cons Tank Welder's Choice [facility] Lab Results: +/- 30 days of the encounter This section includes the Chemistry and Hematology Lab Results on record with CO for the patient. Radiology Reports and Pathology Reports are provided separately, in subsequent sections. Lab Results This section contains the Chemistry/Hematology Results that were resulted 30 days before or 30 daysafter the date of the Encounter. Date/Time Source Result Type Result - Unit Interpretation Reference Range Comment Jul 06, 2024 02:09 PM [facility] LIPID PANEL FASTING Specimen Type: SERUM No comment entered. Ordering Provider: PERRY OLNG MD Report Released Date/Time: Jun 17, 2024 02:14 PM Reporting Lab: [address] [address] Performing Lab: [facility] [place] [facility] [address] [facility] [address] CHOLESTEROL 251 mg/dL H TRIGLYCERIDE 70 mg/dL 0-150 LDL calculated 171 mg/dL H 0-129 CHOL/HDL 3.8 HDL CHOLESTEROL 66 mg/dL H 40-60 Jul 06, 2024 02:09 PM [facility] HEMOGLOBIN A1C PANEL Specimen Type: BLOOD Comment: Values obtained from A1C measurements can vary. For atypical A1C assays, a reported value of 7.0 could actually be between 6.72 and 7.28 if measured by a reference method. A reported value of 9.0 could actually be between 8.73 and 9.27. Ref: http://www.ngs p.org/CAPdata. asp Ordering Provider: Brian REEVES Report Released Date/Time: Jul 01, 2024 03:56 PM Reporting Lab: [facility] [address] [address] Performing Lab: [facility] [address] [address] HEMOGLOBIN A1C 4.9 4.0-5.6 Jul 06, 2024 02:09 PM [facility] CALCIUM Specimen Type: SERUM No comment entered. Ordering Provider: Brian REEVES Report Released Date/Time: Jul 01, 2024 03:56 PM Reporting Lab: [facility] [address] [address] Performing Lab: [facility] [address] [address] CALCIUM 9.8 mg/dL 8.5-10.2 Jul 06, 2024 02:09 PM [facility] LIVER FUNCTION Specimen Type: SERUM No comment entered. Ordering Provider: Brian REEVES Report Released Date/Time: Jul 01, 2024 03:56 PM Reporting Lab: [facility] [address] [address] Performing Lab: [facility] [address] [address] PROTEIN,TOTAL 7.4 g/dL 6.0-8.3 ALBUMIN 4.4 g/dL 3.5-5.0 ALKALINE PHOSPHATASE 95 U/L 40-150 AST 21 U/L 5-34 ALT 34 U/L BILIRUBIN, TOTAL 0.4 mg/dL 0.2-1.2 Jul 06, 2024 02:09 PM [facility] BASIC METABOLIC PANEL (non-fasting) Specimen Type: SERUM No comment entered. Ordering Provider: Brian REEVES Report Released Date/Time: Jul 01, 2024 03:56 PM Reporting Lab: [address] [address] Performing Lab: [address] [address] UREA NITROGEN 19 mg/dL 7-25 GLUCOSE 90 mg/dL 65-100 SODIUM 139 mmol/L 135-145 POTASSIUM 4.8 mmol/L 3.5-5.0 CHLORIDE 104 mmol/L 100-110 CO2 26 meq/L 20-30 CREATININE, Serum 1.04 mg/dL 0.50-1.40 eGFR(CKD-EPI 2020) 87 mL/min >60 Jul 06, 2024 02:09 PM [facility] CBC AND DIFF (AUTO) Specimen Type: BLOOD No comment entered. Ordering Provider: Brian REEVES Report Released Date/Time: Jul 01, 2024 03:56 PM Reporting Lab: [address] [address] Performing Lab: [address] [address] WBC 8.69 10*3/uL 4.50-11.00 RBC 5.01 10*6/uL 4.23-5.66 HGB 16.3 g/dL 12.8-17 HCT 47.3 39.2-50.4 MCV 94.4 fL 82-99 MCHC 34.5 g/dL 30.8-35.1 PLT 282 10*3/uL 140-360 RDW-CV 12.7 12.0-16.0 MONO, ABS 0.49 10*3/uL 0.30-1.10 MCH 32.5 pg 26.2-32.6 NEUT % 70.3 43.7-75.8 LYMPH % 22.3 14.0-42.3 MONO % 5.6 5.1-13.7 EOS % 0.6 0.4-6.8 BASO % 0.7 0.1-2.0 NEUT, ABS 6.11 10*3/uL 2.20-7.60 LYMPH, ABS 1.94 10*3/uL 1.00-3.20 EOS, ABS 0.05 10*3/uL 0.03-0.44 BASO, ABS 0.06 10*3/uL 0.01-0.13 IMMATURE GRAN % 0.5 0.0-0.7 IMMATURE GRAN, ABS 0.04 10*3/uL 0.00-0.06 NRBC % 0.0 0.0-0.0 NRBC, ABS 0.00 10*3/uL 0.00-0.00 Vital Signs: All taken on the encounter date This section contains inpatient and outpatient Vital Signs collected on the date of the Encounter. Date/Time Temperature Pulse Blood Pressure Respiratory Rate SP02 Pain Height Weight Body Mass Index Source Jun 09, 2024 01:43 PM 150/100 [facility] [employer] [facility] [facility] Jun 09, 2024 01:32 PM 82 135/92 20 97 [facility] Immunizations: All administered on the encounter date This section contains immunizations associated to the Encounter. Immunization Series Date Issued Reaction Comments INFLUENZA, SPLIT VIRUS, TRIVALENT, PF Jun 09 024 Social History: Smoking Status (Most current) and Tobacco Use (All prior to encounter date) This section includes the most current, and the historical, smoking and tobacco- related health factors from the CO facility where the Encounter took place. Current Smoking Status This section includes the most current smoking, or tobacco-related health factor, from the CO facility where the Encounter took place. Date/Time Current Smoking Status Comment Gino hanson Nov 19, 2023 10:00 AM VA-TOBACCO USER EVERY DAY [facility] Tobacco Use History This section includes a history of the smoking, or tobacco-related health factors, that were collected on or before the date of the Encounter. The data comes from the CO facility where the Encounter took place. 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 [facility] [place] [facility] Nov 19, 2023 10:00 AM VA-TOBACCO USE MED NO [facility] [place] [facility] Nov 19, 2023 10:00 AM VA-TOBACCO USE WI 30 MIN OF WAKEUP [facility] [place] [facility] Nov 19, 2023 10:00 AM VA-TOBACCO USER EVERY DAY [facility] [place] [facility] February 10, 2023 01:00 PM ORYX ADMIT TOBACCO SCREEN YES [facility] [place] [facility] February 10, 2023 01:00 PM ORYX ADMIT TOBACCO USE CIGS GR 5D [facility] [place] [facility] February 10, 2023 01:00 PM ORYX DAILY TOBACCO BOWLING ALLEY OPERATOR RECEIVED [facility] [place] [facility] February 10, 2023 01:00 PM ORYX DAILY TOBACCO MEDS ORDERED [facility] [place] [facility] Sep 02, 2022 08:00 AM VA-TOBACCO USE 30 YEARS OR MORE [facility] [place] [facility] Sep 02, 2022 08:00 AM VA-TOBACCO USE ADVICE [facility] [place] [facility] Sep 02, 2022 08:00 AM VA-TOBACCO USE 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 ALLEY OPERATOR YES [facility] [place] [facility] Sep 02, 2022 08:00 AM VA-TOBACCO USE MED NOTIFY PROVIDER [facility] [place] [facility] Sep 02, 2022 08:00 AM VA-TOBACCO USE WI 30 MIN OF WAKEUP [facility] [place] [facility] Sep 02, 2022 08:00 AM VA-TOBACCO USER EVERY DAY [facility] [place] [facility] Oct 12, 2016 09:13 AM QUIT TOBACCO USE 1-7 YEARS AGO [facility] [place] [facility] Sep 25, 2015 10:24 AM QUIT TOBACCO USE 1-7 YEARS AGO [facility] [place] [facility] Oct 05, 2013 03:03 PM QUIT TOBACCO USE 1-7 YEARS AGO PT HAS QUIT LES THAN A YEAR AGO. [facility] Oct 05, 2013 03:03 PM QUIT TOBACCO USE IN PAST YEAR [facility] Advance Directives: All historical and current Section Date Range: From patient's date of to the date document was created. This section includes ALL of a patient's completed or amended CO Advance and Rescinded Directives. The entries below indicate that a directive exists for the patient, but an actual copy is not included with this document. The data comes from all CO facilities. Date Advance Directives Provider Source Mar 06, 2023 ADVANCE DIRECTIVE BEV PETTIT [facility] Mar 06, 2023 ADVANCE DIRECTIVE DISCUSSION BEV PETTIT [facility] Apr 20, 2020 ADVANCE DIRECTIVE DISCUSSION REUM MARTÍNEZ [facility] Feb 24, 2020 ADVANCE DIRECTIVE DISCUSSION POOL FUENTES [facility] Oct 30, 2016 ADVANCE DIRECTIVE KULDEEP FAM [facility] Encounter Notes: All associated encounter notes This section contains the clinical notes associated to the Encounter. Date/Time Encounter Note(s) Provider Source Jun 09, 2024 01:44 PM PREVENTIVE MEDICINE NURSING NOTE: LOCAL TITLE: CLINICAL REMINDERS/NURSING STANDARD TITLE: PREVENTIVE MEDICINE NURSING NOTE DATE OF NOTE: JUN 09, 2024@13:44 ENTRY DATE: JUN 09, 2024@13:44:37 AUTHOR: CLARITA VALENCIAER: URGENCY: STATUS: COMPLETED Homelessness/Food Insecurity Screen: In the past 2 months, have you been living in stable housing that you own, rent, or stay in as part of a household? Yes - Living in stable housing. Are you worried or concerned that in the next 2 months you may NOT have stable housing that you own, rent, or stay in as part of a household? No - Not worried about housing near future The reports the following: Within the past 12 months, you worried whether your food would run out before you got money to buy more. Never true Within the past 12 months, the food you bought just didn't last and you didn't have money to get more. 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 The patient/caregiver denied any prior severe reaction to this vaccine or its components or a severe allergic reaction, such as anaphylaxis, to any vaccine or any injectable therapy. The patient/caregiver gave verbal consent to receive the vaccine. Alcohol Use Screen (AUDIT-C): Alcohol Screen: SCREEN FOR ALCOHOL (AUDIT-C) An alcohol screening test (AUDIT-C) was negative (score=0). 1. How often did you have a drink containing alcohol in the past year? Consider a drink to be a 12 ounce can or bottle of regular beer, 8 ounces of malt liquor, a 5 ounce glass of table wine, or a 1.5 ounce shot of liquor (like scotch, gin, or vodka). Never 2. How many drinks containing alcohol did you have on a typical day when you were drinking in the past year? Response not required due to responses to other questions. 3. How often did you have six or more drinks on one occasion in the past year? Response not required due to responses to other questions. /brown/ Clarita Valencia RN Primary Care Staff Nurse Signed: 06/09/2024 13:45 CLARITA VALENCIA CNTElidaL [facility] [place] [facility] Jun 09, 2024 01:41 PM PHYSICIAN NOTE: LOCAL TITLE: NOTE STANDARD TITLE: PHYSICIAN NOTE DATE OF NOTE: JUN 09, 2024@13:41 ENTRY DATE: JUN 09, 2024@13:41:47 AUTHOR: LAUREN REEVES EXP COSIGNER: URGENCY: STATUS: COMPLETED HISTORY OF PRESENT ILLNESS: JEYSON SANCHEZ, is a 49 yo WHITE MALE who presents at the CO at [facility]. multiple problems HPI. vet seen by this PCP one year ago and he reports that he now lives with parents in [place]. he is hoping to avoid any retirement time so he needs to comply w/ probation plan/mental health staff helping vet access services at CO for bipolar illness. He has hx of HTN and was on meds in past, he may not have as elevated BP readings as he has NOT used etoh in 6 mos, no angina. He has asthma and needs albuterol MDI. Vet has left inguinal hernia and was advised to have surgery last year. He also has foot pain with toenail thickening on right first toe. vet also has back and right hip pain and wants to see chiro. SH smokes 1 ppd Active problems - Computerized Problem List is the source for the followin. Exposure to potentially hazardous substance 2. Homeless 3. Inguinal hernia 4. Cannabis dependence 5. Schizoaffective disorder, bipolar type 6. Alcohol dependence 7. Hypertension 8. Gastroesophageal reflux disease 9. Nicotine dependence 10. Bipolar disorder 11. Positive PPD 12. Left knee pain (SNOMED CT [id number]) 13. 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 OF SERVICE - [employer] FROM January TO Apr COMBAT SERVICE INDICATED: No SERVICE CONNECTED % - 100 VITAL SIGNS: Temperature 97.9 F [36.6 C] (07/10/2023 09:58) Blood Pressure 135/92 (06/09/2024 13:32) Pulse 82 (06/09/2024 13:32) Respiration 20 (06/09/2024 13:32) Pain 0 (07/10/2023 09:58) BMI BMI: 24.6 Weight 161.6 lb [73.30 kg] (07/10/2023 09:58) Pulse Oximetry 97% (06/09/2024 13:32) Review of Systems: CONSTITUTIONAL: No fever, no loss of appetite ENT: No sore throat, no cough CARDIOVASCULAR: No chest pain, no palpitations RESPIRATORY: No SOB, no wheezing GASTROINTESTINAL: No abd pain, no N/V/D, no change in stool EXAMINATION General: this is anxious gentleman in no obvious distress. Mental Status: Alert and oriented x 3 Head: Normocephalic. Lungs: CTA. no crackles, no wheezing Ext: on exam he does appear to have left quadriceps atrophy compared w/ right thigh DATA REVIEW >> MEDICATIONS Reviewed Today (VA & Non VA) ALLERGIES: CATS Active Outpatient Medications (including Supplies): Issue Date Status Last Fill Active Outpatient Medications Refills Expiration 1) ALBUTEROL 90MCG (CFC-F) 200D ORAL INHL ACTIVE (S) Issu:06-19-23 Qty: 3 for 90 days Sig: INHALE 2 Refills: 0 Last:04-01-24 PUFFS BY MOUTH FOUR TIMES DAILY Expr:06-19-24 NEEDED FOR BRONCHOSPASM 2) OLANZAPINE 5MG TAB Qty: 30 for 30 days ACTIVE (S) Issu:11-19-23 Sig: TAKE ONE TABLET BY MOUTH AT Refills: 2 Last:04-01-24 BEDTIME Expr:11-19-24 >> LABS REVIEWED TODAY: CHEM 7 TREND LAB CUMULATIVE SELECTED Collection DT Spec GLUCOSE BUN CREATIN Sodium K+/Pot CL CO2 03/19/2023 10:09 SERUM 125 H 22 0.88 138 4.9 106 21 02/10/2023 13:49 SERUM 89 14 0.76 141 4.2 106 25 01/24/2023 16:11 SERUM 84 14 0.77 141 5.1 H 103 28 09/24/2022 13:46 SERUM 84 14 0.82 140 3.8 104 27 10/14/2016 10:25 SERUM 81 14 0.80 137 4.8 99 L 29 LAB CUMULATIVE SELECTED 2 No selection items chosen for this component. CHEM 7 Results Collection DT Spec Sodium K+/Pot CL CO2 GLUCOSE BUN 03/19/2023 10:09 SERUM 138 4.9 106 21 125 H 22 02/10/2023 13:49 SERUM 141 4.2 106 25 89 14 01/24/2023 16:11 SERUM 141 5.1 H 103 28 84 14 09/24/2022 13:46 SERUM 140 3.8 104 27 84 14 10/14/2016 10:25 SERUM 137 4.8 99 L 29 81 14 CBC TREND Collection DT Spec WBC RBC HGB HCT MCV MCH PLT 03/19/2023 10:09 BLOOD 8.12 4.64 15.3 45.7 98.5 33.0 H 207 02/10/2023 13:49 BLOOD 7.04 4.26 14.5 42.9 100.7 H 34.0 H 275 01/24/2023 16:11 BLOOD 6.54 4.47 14.9 44.0 98.4 33.3 H 258 09/24/2022 13:46 BLOOD 6.82 4.47 15.1 44.4 99.3 H 33.8 H 262 10/14/2016 10:25 BLOOD 3.84 L 4.43 15.1 43.7 98.6 34.1 H 199 HEMOGLOBIN A1C TREND Collection DT Spec HGBA1c 02/12/2023 07:00 BLOOD 4.7 LIPID PANEL TREND Collection DT Spec CHOL HDL CHO/HDL LDL-c TRIG 02/12/2023 07:00 SERUM 240 H 104 H 2.3 120 80 09/24/2022 13:46 SERUM 202 H 65 H 3.1 127 51 10/14/2016 10:25 SERUM 199 85 H 2.3 103 55 UREA NITROGEN - NONE FOUND CREATININE-EGFR - NONE FOUND LIVER PANEL TREND Collection DT Spec AST ALT T BILI ALK YOUNG T. PROT ALBUMIN 03/31/2023 07:00 SERUM 11 19 0.4 72 6.7 4.1 03/19/2023 10:09 SERUM 12 16 0.5 63 6.3 3.8 03/18/2023 07:00 SERUM 10 16 0.3 64 6.6 4.0 03/05/2023 07:00 SERUM 14 16 0.3 70 6.5 3.9 02/26/2023 07:00 SERUM 14 15 0.7 71 6.8 4.2 PSA TREND Collection DT Spec PSA SR- 09/24/2022 13:46 SERUM 1.13 Collection DT Spec TSH 02/12/2023 07:00 SERUM 1.49 ANEMIA PANEL TREND Collection DT Spec B12 SR- Folate HCT 03/19/2023 10:09 BLOOD 45.7 03/18/2023 07:00 SERUM 605 02/12/2023 07:00 SERUM 11.14 02/12/2023 07:00 SERUM 176 L 02/10/2023 13:49 BLOOD 42.9 PT INR TREND No data available >> HEALTH MAINTENANCE PREVENTIVE MEDICINE GOALS Info Only: VA Video Connect Capable DUE NOW Advance Directive Screen MH AD Mar 06 Homelessness/Food Insecurity Screen Sep 02 MH Atyp Antipsych Metabol Syndrome DUE NOW Avg Risk Colorectal Cancer Screen Jun 19 Hepatitis B Immunization DUE NOW Mental Health Treatment Plan DUE NOW Pneumococcal Conjugate Vaccine (PCV15/PCDUE NOW Influenza Immunization DUE NOW Medication Reconciliation DUE NOW Td / Tdap Immunization Oct 05 Alcohol Use Screen (AUDIT-C) Jun 19 COVID-19 Immunization DUE NOW HTN Assess for Elevated BP>=140/90 DUE NOW Herpes Zoster (Shingles) Vaccine DUE NOW RHS Screen DUE NOW (Optional) Whole Health Documentation DUE NOW ASSESSMENT/PLAN: 1. HTN 2. asthma 3. back pain 4. left inguinal hernia 5. bipolar illness 6. foot pain/tinea unguim Plan 1. vet provided w/ BP cuff to self monitor 2. refill amlodipine/ check BP 1-2 x per week and call PCP PRN 3. refill albuterol/vet will cut back on smoking 4. refer to chiro for eval for back and right hip pain 5. vet wants to see Herbert kayion he saw in 2022-may need hernia surg 6. Jayla Samuels RN//added as signer to note as vet informs me that she is helping vet access MH services/vet is grateful for this 7. refer to podiatry 8. f/u w/ PCP in 3 mos LAB ORDERS FOR NEXT APPT. spent in patient care and education No barriers; Patient understands and agrees to current treatment plan. If pt has any questions, concerns, or changes in current health status he/she will call or come in to the [facility]. /brown/ OPAL REEVES MD PHYSICIAN Signed: 06/09/2024 17:06 Receipt Acknowledged By: 06/14/2024 09:24 /brown/ JAYLA PEMBERTON, RN [facility] REGISTERED NURSE AMELIA REEVES [facility]
--- OUTSIDE RECORDS SUMMARY | 2024-08-31 21:11 | XMS_ITS ---
Author Name [facility] [place] [facility] [place] [facility] [place] [facility] [place] Address [address] [place] [address] Care Team Providers Care Vacation Guide Name Role Phone MARTIN BOWERS Primary Care Provider OPAL Mckay Primary Care Provider Unav ailable Selected Encounter This section includes the information on record at [place] for the Encounter. Date/Time Encounter Type Encounter Description Reason Pro vider Source Jan 02, 2024 09:31 AM Outpatient Encounter OPTOMETRY IHE Encounter Template Text not used by [place] Plan of Treatment: Future Appointments (+ 6 months) and Future Tests (+/- 45 days) The Plan of Treatment section includes future care activities for the patient from all [place] treatmentfacilities. This section includes future appointments and future orders which are active, pending or scheduled. Future Appointments This section includes appointments that were scheduled to occur 6 months from the date of the Encounter, up to a maximum of 20 appointments. The data comes from all [place] treatment facilities. Appointment Date/Time Appointment Type Appointme nt Facility Name Jun 09, 2024 01:30 PM AM[place]ULATORY [place]ICINE [place] [facility] [place] [facility] Jun 17, 2024 02:00 PM [facility] [place] [facility] Social History: Smoking Status (Most current) and Tobacco Use (All prior to encounter date) This section includes the most current, and the historical, smoking and tobacco- related health factors from the [place] facility where the Encounter took place. Current Smoking Status This section includes the most current smoking, or tobacco-related health factor, from the [place] facility where the Encounter took place. Date/Time Current Smoking Status Comment Gino hernadez Nov 19, 2023 10:00 AM VA-TOBACCO USER EVERY DAY [facility] Tobacco Use History This section includes a history of the smoking, or tobacco-related health factors, that were collected on or before the date of the Encounter. The data comes from the [place] facility where the Encounter took place. 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 [place] [facility] [place] [facility] Nov 19, 2023 10:00 AM VA-TOBACCO USE MED NO [place] [facility] [place] [facility] Nov 19, 2023 10:00 AM VA-TOBACCO USE WI 30 MIN OF WAKEUP [place] [facility] [place] [facility] Nov 19, 2023 10:00 AM VA-TOBACCO USER EVERY DAY [place] [facility] [place] [facility] February 10, 2023 01:00 PM ORYX ADMIT TOBACCO SCREEN YES [place] [facility] [place] [facility] February 10, 2023 01:00 PM ORYX ADMIT TOBACCO USE CIGS GR 5D [place] [facility] [place] [facility] February 10, 2023 01:00 PM ORYX DAILY TOBACCO 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 FORMING ENGINEER RECEIVED [place] [facility] [place] [facility] February 10, 2023 01:00 PM ORYX DAILY TOBACCO MEDS ORDERED [place] [facility] [place] [facility] Sep 02, 2022 08:00 AM VA-TOBACCO USE 30 YEARS OR MORE [place] [facility] [place] [facility] Sep 02, 2022 08:00 AM VA-TOBACCO USE ADVICE [place] [facility] [place] [facility] Sep 02, 2022 08:00 AM 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 [facility] Oct 05, 2013 03:03 PM QUIT TOBACCO USE IN PAST YEAR [facility] Advance Directives: All historical and current Section Date Range: From patient's date of to the date document was created. This section includes ALL of a patient's completed or amended [place] Advance and Rescinded Directives. The entries below indicate that a directive exists for the patient, but an actual copy is not included with this document. The data comes from all [place] facilities. Date Advance Directives Provider Source Mar 06, 2023 ADVANCE DIRECTIVE DISCUSSION BEV PETTIT [facility] Mar 06, 2023 ADVANCE DIRECTIVE BEV PETTIT [facility] Apr 20, 2020 ADVANCE DIRECTIVE DISCUSSION ERUM MARTÍNEZ [facility] Feb 24, 2020 ADVANCE DIRECTIVE DISCUSSION POOL FUENTES [facility] Oct 30, 2016 ADVANCE DIRECTIVE KULDEEP FAM [facility] Encounter Notes: All associated encounter notes This section contains the clinical notes associated to the Encounter. 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 /travon DEWEY ADVANCED FITTING ROOM INSPECTOR Signed: 03/04/2024 09:09 MARILIA DEWEY [place] [facility]
--- OUTSIDE RECORDS SUMMARY | 2024-08-31 21:11 | XMS_ITS | Encounter Summary ---
Author Name [facility] [place] [facility] [place] [facility] [place] Address [address] [place] [address] Care Team Providers Care Equine Intern Name Role Phone MARTIN BOWERS Primary Care Provider OPAL Mckay Primary Care Provider Unav ailable Selected Encounter This section includes the information on record at [place] for the Encounter. Date/Time Encounter Type Encounter Description Reason Pro vider Source Jan 02, 2024 09:32 AM Outpatient Encounter OPTOMETRY IHE Encounter Template Text not used by [place] Plan of Treatment: Future Appointments (+ 6 months) and Future Tests (+/- 45 days) The Plan of Treatment section includes future care activities for the patient from all [place] treatmentfacilities. This section includes future appointments and future orders which are active, pending or scheduled. Future Appointments This section includes appointments that were scheduled to occur 6 months from the date of the Encounter, up to a maximum of 20 appointments. The data comes from all [place] treatment facilities. Appointment Date/Time Appointment Type Appointme nt Facility Name Jun 09, 2024 01:30 PM AM[place]ULATORY - [place]IC[place] [place] [facility] Jun 17, 2024 02:00 PM AM[place] [place] [facility] Social History: Smoking Status (Most current) and Tobacco Use (All prior to encounter date) This section includes the most current, and the historical, smoking and tobacco- related health factors from the [place] facility where the Encounter took place. Current Smoking Status This section includes the most current smoking, or tobacco-related health factor, from the [place] facility where the Encounter took place. Date/Time Current Smoking Status Comment Gino hernadez Nov 19, 2023 10:00 AM VA-TOBACCO USER EVERY DAY [facility] Tobacco Use History This section includes a history of the smoking, or tobacco-related health factors, that were collected on or before the date of the Encounter. The data comes from the [place] facility where the Encounter took place. 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 [place] [facility] [place] [facility] Nov 19, 2023 10:00 AM VA-TOBACCO USE MED NO [place] [facility] [place] [facility] Nov 19, 2023 10:00 AM VA-TOBACCO USE WI 30 MIN OF WAKEUP [place] [facility] [place] [facility] Nov 19, 2023 10:00 AM VA-TOBACCO USER EVERY DAY [place] [facility] [place] [facility] February 10, 2023 01:00 PM ORYX ADMIT TOBACCO SCREEN YES [place] [facility] [place] [facility] February 10, 2023 01:00 PM ORYX ADMIT TOBACCO USE CIGS GR 5D [place] [facility] [place] [facility] February 10, 2023 01:00 PM ORYX DAILY TOBACCO DRUM PRINTER RECEIVED [place] [facility] [place] [facility] February 10, 2023 01:00 PM ORYX DAILY TOBACCO MEDS ORDERED [place] [facility] [place] [facility] Sep 02, 2022 08:00 AM VA-TOBACCO USE 30 YEARS OR MORE [place] [facility] [place] [facility] Sep 02, 2022 08:00 AM VA-TOBACCO USE ADVICE [place] [facility] [place] [facility] Sep 02, 2022 08:00 AM VA-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 [facility] Oct 05, 2013 03:03 PM QUIT TOBACCO USE IN PAST YEAR [facility] Advance Directives: All historical and current Section Date Range: From patient's date of to the date document was created. This section includes ALL of a patient's completed or amended [place] Advance and Rescinded Directives. The entries below indicate that a directive exists for the patient, but an actual copy is not included with this document. The data comes from all [place] facilities. Date Advance Directives Provider Source Mar 06, 2023 ADVANCE DIRECTIVE BEV PETTIT [facility] Mar 06, 2023 ADVANCE DIRECTIVE DISCUSSION BEV PETTIT [facility] Apr 20, 2020 ADVANCE DIRECTIVE DISCUSSION ERUM [facility]ART[facility]NEZ [facility] Feb 24, 2020 ADVANCE DIRECTIVE DISCUSSION POOL FUENTES [facility] Oct 30, 2016 ADVANCE DIRECTIVE KULDEEP FAM [facility] Encounter Notes: All associated encounter notes This section contains the clinical notes associated to the Encounter. Date/Time Encounter Note(s) Provider Source Jan 02, 2024 09:32 AM LETTERS: LOCAL TITLE: PATIENT LETTER (B) STANDARD TITLE: LETTERS DATE OF NOTE: JAN 02, 2024@09:32 ENTRY DATE: JAN 02, 2024@09:32:33 AUTHOR: MARILIA DEWEY EXP COSIGNER: URGENCY: STATUS: COMPLETED [facility] Toll Free Number , ext [phone] JAN 02, 2024 JEYSON SANCHEZ [address] [place] [id number] Dear JEYSON SANCHEZ Thank you for choosing the [facility] of [facility] [place] [facility] as your primary choice for health care. As a partner in your health care, we are contacting you in writing since we have been unsuccessful in our attempts to reach you to date. We want to assure you we are doing everything possible to schedule Veterans for their [place] medical care appointments. Our records indicate you are due for an appointment in optometry Thank you for choosing [facility] [place] [facility] as your primary choice for health care. As a partner in your health care, we are contacting you in writing since we have been unsuccessful in our attempts to reach you to date. We want to assure you we are doing everything possible to schedule Veterans for their [place] medical care appointments. If you would like to be seen, please contact [facility] at [phone] Ext. [phone] to schedule an appointment. Thank you for your service to our nation, and we look forward to hearing from you soon. Sincerely, [facility] [address] [facility] [address] [place] [address] [place] [address] ext. [phone] [facility] [address] [facility] [address] [place] [address] [place] [address] [phone] [facility] [address] [address] [place] [address] ext. [phone] [facility] [address] [place] [address] ext. [phone] MARILIA DEWEY [place] [facility]
--- OUTSIDE RECORDS SUMMARY | 2024-08-31 21:12 | XMS_ITS | Encounter Summary ---
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 Date/Time Encounter Type Encounter Description Reason Provider Source Jul 01, 2024 02:26 PM Outpatient Encounter PRIMARY CARE/MEDICINE NEEMA JIANG Azael Encounter Template Text not used by [place] Plan of Treatment: Future Appointments (+ 6 months) and Future Tests (+/- 45 days) The Plan of Treatment section includes future care activities for the patient from all [place] treatmentfacilities. This section includes future appointments and future orders which are active, pending or scheduled. Future Appointments This section includes appointments that were scheduled to occur 6 months from the date of the Encounter, up to a maximum of 20 appointments. The data comes from all [place] treatment facilities. Appointment Date/Time Appointment Type Appointme nt Facility Name Jul 06, 2024 01:00 PM [facility] Jul 06, 2024 02:00 PM [facility] Jul 13, 2024 02:30 PM [facility] Jul 14, 2024 10:30 AM [facility] Jul 20, 2024 03:30 PM [facility] Jul 26, 2024 01:30 PM [facility] Jul 28, 2024 10:30 AM AMBULATORY - PSYCHIATRY [facility] Aug 10, 2024 10:00 AM [facility] Aug 10, 2024 03:00 PM [facility]INE [facility] Sep 20, 2024 03:00 PM [facility]UL[facility] Nov 10, 2024 10:00 AM [facility]ULATORY [facility]IC[facility] Active, Pending, and Scheduled Orders This section includes a listing of several types of active, pending, and scheduled orders, including clinic medications orders, diagnostic test orders, procedure orders and consult orders; where the start date of the order is 45 days before the date of the Encounter or 45 days after the date of theEncounter. The data comes from all [place] treatment facilities. Test Date/Time Test Type Test Details Facility Name Jun 09, 2024 01:58 PM Consult Order COMMUNITY CARE-GEN SURGERY Cons Saturation [facility] Jun 09, 2024 03:46 PM Consult Order PSYCHOTHER APY BHIP/[facility] OUTPT Cons [facility] Jul 14, 2024 10:55 AM Consult Order REHAB MEDI CINE/[facility] OUTPT Cons [facility] Jul 19, 2024 11:25 AM Consult Order COMMUNITY CARE-DENTAL GENERAL Cons Saturation [facility] Jul 22, 2024 08:51 AM Consult Order COMMUNITY CARE-DENTAL GENERAL Cons Saturation [facility] Jul 22, 2024 01:51 PM Consult Order COMMUNITY CARE-DENTAL GENERAL Cons Saturation [facility] Lab Results: +/- 30 days of the encounter This section includes the Chemistry and Hematology Lab Results on record with [place] for the patient. Radiology Reports and Pathology Reports are provided separately, in subsequent sections. Lab Results This section contains the Chemistry/Hematology Results that were resulted 30 days before or 30 daysafter the date of the Encounter. Date/Time Source Result Type Result - Unit Interpretation Reference Range Comment Jul 06, 2024 02:09 PM [facility] LIPID PANEL FASTING Specimen Type: SERUM No comment entered. Ordering Provider: PERRY LONG MD Report Released Date/Time: Jun 17, 2024 02:14 PM Reporting Lab: [address] [address] Performing Lab: [address] [address] CHOLESTEROL 251 mg/dL H TRIGLYCERIDE 70 mg/dL 0-150 LDL calculated 171 mg/dL H 0-129 CHOL/HDL 3.8 HDL CHOLESTEROL 66 mg/dL H 40-60 Jul 06, 2024 02:09 PM [facility] HEMOGLOBIN A1C PANEL Specimen Type: BLOOD Comment: [...] Jul 01, 2024 03:56 PM Reporting Lab: [address] [address] Performing Lab: [address] [address] HEMOGLOBIN A1C 4.9 4.0-5.6 Jul 06, 2024 02:09 PM [facility] CALCIUM Specimen Type: SERUM No comment entered. Ordering Provider: Brian REEVES Report Released Date/Time: Jul 01, 2024 03:56 PM Reporting Lab: [facility] [address] [address] Performing Lab: [address] [address] CALCIUM 9.8 mg/dL 8.5-10.2 Jul 06, 2024 02:09 PM [facility] LIVER FUNCTION Specimen Type: SERUM No comment entered. Ordering Provider: Brian REEVES Report Released Date/Time: Jul 01, 2024 03:56 PM Reporting Lab: [facility] [address] [address] Performing Lab: [address] [address] PROTEIN,TOTAL 7.4 g/dL 6.0-8.3 ALBUMIN 4.4 g/dL 3.5-5.0 ALKALINE PHOSPHATASE 95 U/L 40-150 AST 21 U/L 5-34 ALT 34 U/L BILIRUBIN, TOTAL 0.4 mg/dL 0.2-1.2 Jul 06, 2024 02:09 PM [facility] BASIC METABOLIC PANEL (non-fasting) Specimen Type: SERUM No comment entered. Ordering Provider: Brian REEVES Report Released Date/Time: Jul 01, 2024 03:56 PM Reporting Lab: [address] [address] Performing Lab: [address] [address] UREA NITROGEN 19 mg/dL 7-25 GLUCOSE 90 mg/dL 65-100 SODIUM 139 mmol/L 135-145 POTASSIUM 4.8 mmol/L 3.5-5.0 CHLORIDE 104 mmol/L 100-110 CO2 26 meq/L 20-30 CREATININE, Serum 1.04 mg/dL 0.50-1.40 eGFR(CKD-EPI 2020) 87 mL/min >60 Jul 06, 2024 02:09 PM [facility] CBC AND DIFF (AUTO) Specimen Type: BLOOD No comment entered. Ordering Provider: Brian REEVES Report Released Date/Time: Jul 01, 2024 03:56 PM [facility] [address] [address] Performing [facility] [address] [address] WBC 8.69 10*3/uL 4.50-11.00 RBC 5.01 10*6/uL [...] 0.0 0.0-0.0 NRBC, ABS 0.00 10*3/uL 0.00-0.00 Social History: Smoking Status (Most current) and Tobacco Use (All prior to encounter date) This section includes the most current, and the historical, smoking and tobacco- related health factors from the [place] facility where the Encounter took place. Current Smoking Status This section includes the most current smoking, or tobacco-related health factor, from the [place] facility where the Encounter took place. Date/Time Current Smoking Status Gio hanson Nov 19, 2023 10:00 AM VA-TOBACCO USER EVERY DAY [facility] Tobacco Use History This section includes a history of the smoking, or tobacco-related health factors, that were collected on or before the date of the Encounter. The data comes from the [place] facility where the Encounter took place. Date/Time Smoking Status/Tobac co Use Comment Facility Nov 19, 2023 10:00 AM VA-TOBACCO USE ADVICE [facility] Nov 19, 2023 10:00 AM VA-TOBACCO USE VALUE ADVISOR NO [facility] Nov 19, 2023 10:00 AM VA-TOBACCO USE MED NO [facility] Nov 19, 2023 10:00 AM VA-TOBACCO USE WI 30 MIN OF WAKEUP [facility] Nov 19, 2023 10:00 AM VA-TOBACCO USER EVERY DAY [facility] February 10, 2023 01:00 PM ORYX ADMIT TOBACCO SCREEN YES [facility] February 10, 2023 01:00 PM ORYX ADMIT TOBACCO USE CIGS GR 5D [facility] February 10, 2023 01:00 PM ORYX DAILY TOBACCO VALUE ADVISOR RECEIVED [facility] February 10, 2023 01:00 PM ORYX DAILY TOBACCO MEDS ORDERED [facility] Sep 02, 2022 08:00 AM VA-TOBACCO USE 30 YEARS OR MORE [facility] Sep 02, 2022 08:00 AM VA-TOBACCO USE ADVICE [facility] Sep 02, 2022 08:00 AM VA-TOBACCO USE VALUE ADVISOR YES [facility] Sep 02, 2022 08:00 AM VA-TOBACCO USE MED NOTIFY PROVIDER [facility] Sep 02, 2022 08:00 AM VA-TOBACCO USE WI 30 MIN OF WAKEUP [facility] Sep 02, 2022 08:00 AM VA-TOBACCO USER EVERY DAY [facility] Oct 12, 2016 09:13 AM QUIT TOBACCO USE 1-7 YEARS AGO [facility] Sep 25, 2015 10:24 AM QUIT TOBACCO USE 1-7 YEARS AGO [facility] Oct 05, 2013 03:03 PM QUIT TOBACCO USE 1-7 YEARS AGO PT HAS QUIT LES THAN A YEAR AGO. [facility] Oct 05, 2013 03:03 PM QUIT TOBACCO USE IN PAST YEAR [facility] Advance Directives: All historical and current Section Date Range: From patient's date of to the date document was created. This section includes ALL of a patient's completed or amended [place] Advance and Rescinded Directives. The entries below indicate that a directive exists for the patient, but an actual copy is not included with this document. The data comes from all [place] facilities. Date Advance Directives Provider Source Mar 06, 2023 ADVANCE DIRECTIVE BEV PETTIT [facility] Mar 06, 2023 ADVANCE DIRECTIVE DISCUSSION BEV PETTIT [facility] Apr 20, 2020 ADVANCE DIRECTIVE DISCUSSION ERUM MARTÍNEZ [facility] Feb 24, 2020 ADVANCE DIRECTIVE DISCUSSION POOL FUENTES [facility] Oct 30, 2016 ADVANCE DIRECTIVE KULDEEP FAM [facility] Radiology Reports: +/- 30 days of the encounter Radiology Reports For cases when an order for radiology services may have been completed prior to the date of the Encounter, the report list includes the Radiology Reports that were completed up to 30 days before dateof the Encounter. For cases when an order for radiology services may have been completed after the date of the Encounter, the report list also includes the Radiology Reports that were completed up to30 days after date of the Encounter. The data comes from all [place] treatment facilities. Date/Time Radiology Report Provider Source Jul 14, 2024 11:13 AM KNEE 3 VIEWS (LEFT ): TARUNCHLOEJEYSON TIERA [id number] -[id number] M Exm Date: JUL 14, 2024@11:13 Req Phys: OPAL REEVES Loc: CWM/NO/PACT 4 (Req'g Loc) Img Loc: [facility]/BUILDING 1 Service: [place] [address] (Case [id number] COMPLETE) KNEE 3 VIEWS (LEFT) (RAD Detailed) CPT:49123 Reason for Study: 5 yrs of left knee pain Clinical History: Report Status: Verified Date Reported: JUL 14, 2024 Date Verified: JUL 14, 2024 Frame Aligner E-Sig:/ES/LIA JACINTO JR Report: Study: AP weight-bearing views of the knees with lateral and sunrise views of the left knee. Comparison: Left knee radiographs from October 20, 2013. Findings: Left knee demonstrates medial and lateral meniscal chondrocalcinosis changes. 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 Two small loose bony ossicles within the left knee are again seen posteriorly. Interval worsening of severe lateral patellar chondromalacia patellar changes with prominent hypertrophic bony changes present to the distal femur with moderate lateral patellar tilting present. No acute bony abnormality is seen. No suprapatellar knee joint effusion is identified. Impression: Prominent arthritic changes of the left knee, as described above. Primary Diagnostic Code: No immediate attention required Primary Interpreting Staff: LIA JACINTO JR, Radiologist (Frame Aligner) /LIA CARPENTER JR [facility] Encounter Notes: All associated encounter notes This section contains the clinical notes associated to the Encounter. Date/Time Encounter Note(s) Provider Source Jul 01, 2024 03:53 PM ADDENDUM: LOCAL TITLE: Addendum STANDARD TITLE: ADDENDUM DATE OF NOTE: JUL 01, 2024@15:53:49 ENTRY DATE: JUL 01, 2024@15:53:49 AUTHOR: LAUREN REEVES EXP COSIGNER: URGENCY: STATUS: COMPLETED vet has not had labs in more than one year. needs updated labs to insure safety of following plan for pain control. 1. labs this week in [place] 2. vet can use BOTH indocin 50 mg bid AND tylenol 1000 mg tid for pain contro 3. vet will have f/u w/ PCP in august. when is hernia surgery? /brown/ OPAL REEVES MD PHYSICIAN Signed: 07/01/2024 15:55 Receipt Acknowledged By: 07/01/2024 16:10 /brown/ QUINN WONG Advanced Wind Field Service Manager 07/06/2024 08:14 /brown/ NEEMA JIANG REGISTERED NURSE ====== --- Original Document --- 07/01/24 PRIMARY CARE SECURE MESSAGING: ------Original Message ------- Sent: 06/30/2024 06:08 PM ET From: JEYSON SANCHEZ To: Brian REEVES_PRIMARY CARE-_[facility] Subject: Medication:Herina pain. Can I get something stronger than acetaminophen for my herina, and left knee pain, until I get surgery. ------Original Message ------- Sent: 07/01/2024 02:25 PM ET From: NEEMA JIANG To: JEYSON SANCHEZ Subject: Medication:Herina pain. Good afternoon, I will forward your request to you primary care provider. Respectfully, Neema Jiang RN /brown/ NEEMA JIANG REGISTERED NURSE Signed: 07/01/2024 14:26 Receipt Acknowledged By: 07/01/2024 15:51 /brown/ OPAL REEVES MD PHYSICIAN 07/01/2024 ADDENDUM STATUS: COMPLETED MSA called , he states there is no surgery date scheduled. He did not want to do it while living at [place]. Phone number given for [facility] which is on the consult. It looks like attempts have been made to contact to schedule appt but he states there have been none. /brown/ QUINN WONG Advanced Wind Field Service Manager Signed: 07/01/2024 16:09 [facility] Jul 01, 2024 02:26 PM PRIMARY CARE SECURE MESSAGING: LOCAL TITLE: PRIMARY CARE SECURE MESSAGING STANDARD TITLE: PRIMARY CARE SECURE MESSAGING DATE OF NOTE: JUL 01, 2024@14:26 ENTRY DATE: JUL 01, 2024@14:26:01 AUTHOR: NEEMA JIANG EXP COSIGNER: URGENCY: STATUS: COMPLETED PRIMARY CARE SECURE MESSAGING Has ADDENDA ------Original Message ------- Sent: 06/30/2024 06:08 PM ET From: JEYSON SANCHEZ To: Brian REEVES_PRIMARY CARE-_[facility] Subject: Medication:Herina pain. Can I get something stronger than acetaminophen for my herina, and left knee pain, until I get surgery. ------Original Message ------- Sent: 07/01/2024 02:25 PM ET From: NEEMA JIANG To: JEYSON SANCHEZ Subject: Medication:Herina pain. Good afternoon, I will forward your request to you primary care provider. Respectfully, Neema Jiang, RN /brown/ NEEMA JIANG REGISTERED NURSE Signed: 07/01/2024 14:26 Receipt Acknowledged By: 07/01/2024 15:51 /brown/ OPAL REEVES MD PHYSICIAN 07/01/2024 ADDENDUM STATUS: COMPLETED vet has not had labs in more than one year. needs updated labs to insure safety of following plan for pain control. 1. labs this week in [place] 2. vet can use BOTH indocin 50 mg bid AND tylenol 1000 mg tid for pain contro 3. vet will have f/u w/ PCP in august. when is hernia surgery? /brown/ OPAL REEVES MD PHYSICIAN Signed: 07/01/2024 15:55 Receipt Acknowledged By: 07/01/2024 16:10 /brown/ QUINN WONG Advanced Wind Field Service Manager * AWAITING SIGNATURE * NEEMA JIANG 07/01/2024 ADDENDUM STATUS: COMPLETED MSA called , he states there is no surgery date scheduled. He did not want to do it while living at [place]. Phone number given for [facility] which is on the consult. It looks like attempts have been made to contact to schedule appt but he states there have been none. /brown/ QUINN WONG Advanced Wind Field Service Manager Signed: 07/01/2024 16:09 NEEMA JIANG [facility]
--- OUTSIDE RECORDS SUMMARY | 2024-08-31 21:12 | XMS_ITS ---
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 Date/Time Encounter Type Encounter Description Reason Pro vider Source Jun 10, 2024 08:32 AM Outpatient Encounter PODIATRY IHE Encounter Template Text not used by [place] Plan of Treatment: Future Appointments (+ 6 months) and Future Tests (+/- 45 days) The Plan of Treatment section includes future care activities for the patient from all [place] treatmentfacilities. This section includes future appointments and future orders which are active, pending or scheduled. Future Appointments This section includes appointments that were scheduled to occur 6 months from the date of the Encounter, up to a maximum of 20 appointments. The data comes from all [place] treatment facilities. Appointment Date/Time Appointment Type Appointme nt Facility Name Jun 17, 2024 02:00 PM AMBULATORY - [place]ATRY [place] [facility] [place] [facility] Jul 06, 2024 01:00 PM [facility] Jul 06, 2024 02:00 PM AMBULATORY - REHAB MEDICIN E [place] [facility] [place] [facility] Jul 13, 2024 02:30 PM AMBULATORY - MEDICINE [facility] [place] [facility] Jul 14, 2024 10:30 AM AMBULATORY - MEDICINE [facility] [place] [facility] Jul 20, 2024 03:30 PM AMBULATORY - MEDICINE [facility] [place] [facility] Jul 26, 2024 01:30 PM AMBULATORY - MEDICINE [facility] [place] [facility] Jul 28, 2024 10:30 AM AMBULATORY - PSYCHIATRY [facility] [place] [facility] Aug 10, 2024 10:00 AM AMBULATORY - MEDICINE [facility] [place] [facility] Aug 10, 2024 03:00 PM AMBULATORY - MEDICINE [facility] [place] [facility] Sep 20, 2024 03:00 PM AMBULATORY - MEDICINE [facility] [place] [facility] Nov 10, 2024 10:00 AM AM[place]ORY [place] [facility] [place] [facility] Active, Pending, and Scheduled Orders This section includes a listing of several types of active, pending, and scheduled orders, including clinic medications orders, diagnostic test orders, procedure orders and consult orders; where the start date of the order is 45 days before the date of the Encounter or 45 days after the date of theEncounter. The data comes from all [place] treatment facilities. Test Date/Time Test Type Test Details Facility Name Jun 09, 2024 01:58 PM Consult Order COMMUNITY CARE-GEN SURGERY Cons Assembly Detailer's Choice [facility] [place] [facility] Jun 09, 2024 03:46 PM Consult Order PSYCHOTHER APY BHIP/[facility] OUTPT Cons [employer] [place] [facility] Jul 14, 2024 10:55 AM Consult Order REHAB MEDI CINE/[facility] OUTPT Cons [employer] [place] [facility] Jul 19, 2024 11:25 AM Consult Order COMMUNITY CARE-DENTAL GENERAL Cons [employer] [facility] [place] [facility] Jul 22, 2024 08:51 AM Consult Order COMMUNITY CARE-DENTAL GENERAL Cons [employer] [facility] [place] [facility] Jul 22, 2024 01:51 PM Consult Order COMMUNITY CARE-DENTAL GENERAL Cons Assembly Detailer[employer] Choice [facility] Lab Results: +/- 30 days of the encounter This section includes the Chemistry and Hematology Lab Results on record with [place] for the patient. Radiology Reports and Pathology Reports are provided separately, in subsequent sections. Lab Results This section contains the Chemistry/Hematology Results that were resulted 30 days before or 30 daysafter the date of the Encounter. Date/Time Source Result Type Result - Unit Interpretation Reference Range Comment Jul 06, 2024 02:09 PM [facility] LIPID PANEL FASTING Specimen Type: SERUM No comment entered. Ordering Provider: PERRY LONG MD Report Released Date/Time: Jun 17, 2024 02:14 PM Reporting Lab: [address] [address] Performing Lab: [address] [address] CHOLESTEROL 251 mg/dL H TRIGLYCERIDE 70 mg/dL 0-150 LDL calculated 171 mg/dL H 0-129 CHOL/HDL 3.8 HDL CHOLESTEROL 66 mg/dL H 40-60 Jul 06, 2024 02:09 PM [facility] CALCIUM Specimen Type: SERUM No comment entered. Ordering Provider: Brian REEVES Report Released Date/Time: Jul 01, 2024 03:56 PM Reporting Lab: [address] [address] Performing Lab: [address] [address] CALCIUM 9.8 mg/dL 8.5-10.2 Jul 06, 2024 02:09 PM [facility] HEMOGLOBIN A1C PANEL Specimen Type: BLOOD Comment: [...] Jul 01, 2024 03:56 PM Reporting Lab: [facility] [address] [address] Performing Lab: [address] [address] HEMOGLOBIN A1C 4.9 4.0-5.6 Jul 06, 2024 02:09 PM [facility] LIVER FUNCTION Specimen Type: SERUM No comment entered. Ordering Provider: Brian REEVES Report Released Date/Time: Jul 01, 2024 03:56 PM Reporting Lab: [address] [address] Performing Lab: [address] [address] PROTEIN,TOTAL 7.4 g/dL 6.0-8.3 ALBUMIN 4.4 g/dL 3.5-5.0 ALKALINE PHOSPHATASE 95 U/L 40-150 AST 21 U/L 5-34 ALT 34 U/L BILIRUBIN, TOTAL 0.4 mg/dL 0.2-1.2 Jul 06, 2024 02:09 PM [facility] BASIC METABOLIC PANEL (non-fasting) Specimen Type: SERUM No comment entered. Ordering Provider: Brian REEVES Report Released Date/Time: Jul 01, 2024 03:56 PM Reporting Lab: [address] [address] Performing Lab: [address] [address] UREA NITROGEN 19 mg/dL 7-25 GLUCOSE 90 mg/dL 65-100 SODIUM 139 mmol/L 135-145 POTASSIUM 4.8 mmol/L 3.5-5.0 CHLORIDE 104 mmol/L 100-110 CO2 26 meq/L 20-30 CREATININE, Serum 1.04 mg/dL 0.50-1.40 eGFR(CKD-EPI 2020) 87 mL/min >60 Jul 06, 2024 02:09 PM [facility] CBC AND DIFF (AUTO) Specimen Type: BLOOD No comment entered. Ordering Provider: Brian REEVES Report Released Date/Time: Jul 01, 2024 03:56 PM Reporting Lab: [facility] [address] [address] Performing Lab: [facility] [address] [address] WBC 8.69 10*3/uL 4.50-11.00 RBC 5.01 10*6/uL [...] and tobacco- related health factors from the [place] facility where the Encounter took place. Current Smoking Status This section includes the most current smoking, or tobacco-related health factor, from the [place] facility where the Encounter took place. Date/Time Current Smoking Status Comment Facil ity Nov 19, 2023 10:00 AM [place]-TOBACCO USE [place] 30 MIN [place] WAKEUP [facility] Tobacco Use History This section includes a history of the smoking, or tobacco-related health factors, that were collected on or before the date of the Encounter. The data comes from the [place] facility where the Encounter took place. Date/Time Smoking Status/Tobac co Use Comment Facility Nov 19, 2023 10:00 AM VA-TOBACCO USE ADVICE [facility] [facility] [place] [facility] Nov 19, 2023 10:00 AM VA-TOBACCO USE RUG SHAMPOOER NO [facility] [place] [facility] Nov 19, 2023 10:00 AM VA-TOBACCO USE MED NO [facility] [place] [facility] Nov 19, 2023 10:00 AM VA-TOBACCO USE [place] 30 MIN OF WAKEUP [facility] [facility] [place] [facility] Nov 19, 2023 10:00 AM VA-TOBACCO USER EVERY DAY [facility] [place] [facility] February 10, 2023 01:00 PM [facility] ADMIT TOBACCO SCREEN YES [facility] [place] [facility] February 10, 2023 01:00 PM [facility] ADMIT TOBACCO USE CIGS GR 5D [facility] [place] [facility] February 10, 2023 01:00 PM [facility] DAILY TOBACCO RUG SHAMPOOER RECEIVED [facility] [place] [facility] February 10, 2023 01:00 PM [facility] DAILY TOBACCO MEDS ORDERED [facility] [place] [facility] Sep 02, 2022 08:00 AM VA-TOBACCO USE 30 YEARS OR MORE [facility] [place] [facility] Sep 02, 2022 08:00 AM VA-TOBACCO USE ADVICE [facility] [place] [facility] Sep 02, 2022 08:00 AM VA-TOBACCO USE RUG SHAMPOOER YES [facility] [place] [facility] Sep 02, 2022 08:00 AM VA-TOBACCO USE MED NOTIFY PROVIDER [facility] [place] [facility] Sep 02, 2022 08:00 AM VA-TOBACCO USE [place] 30 MIN OF WAKEUP [facility] [place] [facility] Sep 02, 2022 08:00 AM VA-TOBACCO USER EVERY DAY [facility] Oct 12, 2016 09:13 AM QUIT TOBACCO USE 1-7 YEARS AGO [facility] Sep 25, 2015 10:24 AM QUIT TOBACCO USE 1-7 YEARS AGO [facility] Oct 05, 2013 03:03 PM QUIT TOBACCO USE 1-7 YEARS AGO PT HAS QUIT LES THAN A YEAR AGO. [facility] Oct 05, 2013 03:03 PM QUIT TOBACCO USE IN PAST YEAR [facility] Advance Directives: All historical and current Section Date Range: From patient's date of to the date document was created. This section includes ALL of a patient's completed or amended [place] Advance and Rescinded Directives. The entries below indicate that a directive exists for the patient, but an actual copy is not included with this document. The data comes from all [place] facilities. Date Advance Directives Provider Source Mar 06, 2023 ADVANCE DIRECTIVE BEV PETTIT [facility] Mar 06, 2023 ADVANCE DIRECTIVE DISCUSSION BEV PETTIT [facility] Apr 20, 2020 ADVANCE DIRECTIVE DISCUSSION ERUM MARTÍNEZ [facility] Feb 24, 2020 ADVANCE DIRECTIVE DISCUSSION POOL F[facility]ENTES [facility] Oct 30, 2016 ADVANCE DIRECTIVE KULDEEP FAM [facility] Encounter Notes: All associated encounter notes This section contains the clinical notes associated to the Encounter. Date/Time Encounter Note(s) Provider Source Jun 10, 2024 08:32 AM LETTERS: LOCAL TITLE: PATIENT LETTER (B) STANDARD TITLE: LETTERS DATE OF NOTE: JUN 10, 2024@08:32 ENTRY DATE: JUN 10, 2024@08:33:05 AUTHOR: HARRY JOSHI COSIGNER: URGENCY: STATUS: COMPLETED JUN 10, 2024 JEYSON SANCHEZ [address] [place] [id number] Dear JEYSON SANCHEZ We would like to assist you in scheduling a PODIATRY appointment at the [place]. We have been unable to reach you by phone. To schedule this appointment please call toll free Ext [phone]. Our booking appointment hours are Friday through Friday from 8:00 am to 4:00 pm. Please leave a message if you receive voicemail and let us know a good time and telephone number where we can reach you. If we dont hear back from you within 14 days from the date of this letter we will discontinue the request. If you have already scheduled this appointment, please disregard this letter. Your health is important to us. Sincerely, [facility] [address] [place] [address] [place] [address] ext. [phone] [facility] [address] [facility] [address] [place] [address] [place] [address] [phone] [facility] [address] [address] [place] [address] ext. [phone] [facility] [address] [place] [address] ext. [phone] HARRY JOSHI [place] [facility] [place] [facility]
--- OUTSIDE RECORDS SUMMARY | 2024-08-31 21:12 | XMS_ITS ---
Author Name [facility] [place] Organization [facility] [place] Address [address] [place] [address] Care Team Providers Care Brine Supervisor Name Role Phone MARTIN BOWERS Primary Care Provider OPAL Mckay Primary Care Provider Unav ailable Selected Encounter This section includes the information on record at [place] for the Encounter. Date/Time Encounter Type Encounter Description Reason Provider Source Jun 17, 2024 02:00 PM OFFICE O/P EST LOW 20 [facility] - IND ICD-10-CM F25.0 Schizoaffective disorder, bipolar type DERECK VILLANUEVA MD [facility] Encounter Template Text not used by [place] Assessments - Encounter Diagnoses This section includes the primary and secondary diagnoses documented for the Encounter. Date/Time Primary/Secondary Diagnosis Diagnosis Name Provider Source Jun 17, 2024 02:24 PM PRIMARY Schizoaffective disorder, bipolar type DERECK VILLANUEVA MD [facility] Jun 17, 2024 02:24 PM SECONDARY Alcohol dependence with alcohol-induced mood disorder DERECK VILLANUEVA MD [facility] [place] [facility] Jun 17, 2024 02:24 PM SECONDARY Insomnia, unspecified DERECK VILLANUEVA MD [facility] Plan of Treatment: Future Appointments (+ 6 months) and Future Tests (+/- 45 days) The Plan of Treatment section includes future care activities for the patient from all [place] [facility] center. This section includes future appointments and future orders which are active, pending or scheduled. Future Appointments This section includes appointments that were scheduled to occur 6 months from the date of the Encounter, up to a maximum of 20 appointments. The data comes from all [facility]. Appointment Date/Time Appointment Type Appointme nt Facility Name Jul 06, 2024 01:00 PM AMBULATORY - MEDICINE [place] [facility] [place] [facility] Jul 06, 2024 02:00 PM AMBULATORY - REHAB MEDICIN E [facility] [place] [facility] Jul 13, 2024 02:30 PM AMBULATORY - MEDICINE [place] [facility] [place] [facility] Jul 14, 2024 10:30 AM AMBULATORY - MEDICINE [facility] [place] [facility] Jul 20, 2024 03:30 PM AMBULATORY - MEDICINE PA [facility] [place] [facility] Jul 26, 2024 01:30 PM AMBULATORY - MEDICINE PA [facility] [place] [facility] Jul 28, 2024 10:30 AM AMBULATORY - PSYCHIATRY [facility] [place] [facility] Aug 10, 2024 10:00 AM AMBULATORY - MEDICINE [place] [facility] [place] [facility] Aug 10, 2024 03:00 PM AMBULATORY - MEDICINE [place] [facility] [place] [facility] Sep 20, 2024 03:00 PM AMBULATORY - MEDICINE [place] [facility] [place] [facility] Nov 10, 2024 10:00 AM AMBULATORY - MEDICINE [facility] [place] [facility] Active, Pending, and Scheduled Orders This section includes a listing of several types of active, pending, and scheduled orders, including clinic medications orders, diagnostic test orders, procedure orders and consult orders; where the start date of the order is 45 days before the date of the Encounter or 45 days after the date of theEncounter. The data comes from all [facility]. Test Date/Time Test Type Test Details Facility Name Jun 09, 2024 01:58 PM Consult Order COMMUNITY CARE-GEN SURGERY Cons [employer] Librarian's Choice [facility] [place] [facility] Jun 09, 2024 03:46 PM Consult Order PSYCHOTHER APY BHIP/[facility] OUTPT Cons [employer] Librarian's Choice [facility] [place] [facility] Jul 14, 2024 10:55 AM Consult Order REHAB MEDI CINE/NH[facility] OUTPT Cons [employer] Librarian's Choice [facility] [place] [facility] Jul 19, 2024 11:25 AM Consult Order COMMUNITY CARE-DENTAL GENERAL Cons [employer] Libr[facility] [place] [facility] Jul 22, 2024 08:51 AM Consult Order COMMUNITY CARE-DENTAL GENERAL Cons [employer] Librarian's Choice [facility] [place] [facility] Jul 22, 2024 01:51 PM Consult Order COMMUNITY CARE-DENTAL GENERAL Cons [employer] Librarian's Choice [facility] Lab Results: +/- 30 days of the encounter This section includes the Chemistry and Hematology Lab Results on record with [facility] for the patient. Radiology Reports and Pathology Reports are provided separately, in subsequent sections. Lab Results This section contains the Chemistry/Hematology Results that were resulted 30 days before or 30 daysafter the date of the Encounter. Date/Time Source Result Type Result - Unit Interpretation Reference Range Comment Jul 06, 2024 02:09 PM [facility] LIPID PANEL FASTING Specimen Type: SERUM No comment entered. Ordering Provider: PERRY VILLANUEVA MD Report Released Date/Time: Jun 17, 2024 02:14 PM Reporting Lab: [address] [address] Performing Lab: [address] [address] CHOLESTEROL 251 mg/dL H TRIGLYCERIDE 70 mg/dL 0-150 LDL calculated 171 mg/dL H 0-129 CHOL/HDL 3.8 HDL CHOLESTEROL 66 mg/dL H 40-60 Jul 06, 2024 02:09 PM [facility] HEMOGLOBIN A1C PANEL Specimen Type: BLOOD Comment: [...] Jul 01, 2024 03:56 PM Reporting Lab: [address] [address] Performing Lab: [address] [address] HEMOGLOBIN A1C 4.9 4.0-5.6 Jul 06, 2024 02:09 PM [facility] CALCIUM Specimen Type: SERUM No comment entered. Ordering Provider: Brian REEVES Report Released Date/Time: Jul 01, 2024 03:56 PM Reporting Lab: [address] [address] Performing Lab: [address] [address] CALCIUM 9.8 mg/dL 8.5-10.2 Jul 06, 2024 02:09 PM [facility] LIVER FUNCTION Specimen Type: SERUM No comment entered. Ordering Provider: Brian REEVES Report Released Date/Time: Jul 01, 2024 03:56 PM Reporting Lab: [address] [address] Performing Lab: [address] [address] PROTEIN,TOTAL 7.4 g/dL 6.0-8.3 ALBUMIN 4.4 g/dL 3.5-5.0 ALKALINE PHOSPHATASE 95 U/L 40-150 AST 21 U/L 5-34 ALT 34 U/L BILIRUBIN, TOTAL 0.4 mg/dL 0.2-1.2 Jul 06, 2024 02:09 PM [facility] BASIC METABOLIC PANEL (non-fasting) Specimen Type: SERUM No comment entered. Ordering Provider: Brian REEVES Report Released Date/Time: Jul 01, 2024 03:56 PM Reporting Lab: [address] [address] Performing Lab: [facility] [address] [facility] [address] UREA NITROGEN 19 mg/dL 7-25 GLUCOSE 90 mg/dL 65-100 SODIUM 139 mmol/L 135-145 POTASSIUM 4.8 mmol/L 3.5-5.0 CHLORIDE 104 mmol/L 100-110 CO2 26 meq/L 20-30 CREATININE, Serum 1.04 mg/dL 0.50-1.40 eGFR(CKD-EPI 2020) 87 mL/min >60 Jul 06, 2024 02:09 PM [facility] CBC AND DIFF (AUTO) Specimen Type: BLOOD No comment entered. Ordering Provider: Brian REEVES Report Released Date/Time: Jul 01, 2024 03:56 PM Reporting Lab: [facility] [address] [facility] [address] Performing Lab: [facility] [address] [facility] [address] WBC 8.69 10*3/uL 4.50-11.00 RBC 5.01 10*6/uL [...] and tobacco- related health factors from the [place] facility where the Encounter took place. Current Smoking Status This section includes the most current smoking, or tobacco-related health factor, from the [place] facility where the Encounter took place. Date/Time Current Smoking Status Comment [facility] Nov 19, 2023 10:00 AM VA-TOBACCO USER EVERY DAY [facility] Tobacco Use History This section includes a history of the smoking, or tobacco-related health factors, that were collected on or before the date of the Encounter. The data comes from the [place] facility where the Encounter took place. 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 [place] [facility] [place] [facility] Nov 19, 2023 10:00 AM VA-TOBACCO USE MED NO [facility] Nov 19, 2023 10:00 AM VA-TOBACCO USE WI 30 MIN OF WAKEUP [place] [facility] [place] [facility] Nov 19, 2023 10:00 AM VA-TOBACCO USER EVERY DAY [facility] [place] [facility] February 10, 2023 01:00 PM ORYX ADMIT TOBACCO SCREEN YES [facility] [place] [facility] February 10, 2023 01:00 PM ORYX ADMIT TOBACCO USE CIGS GR 5D [place] [facility] [place] [facility] February 10, 2023 01:00 PM ORYX DAILY TOBACCO 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 RECEIVED [facility] February 10, 2023 01:00 PM ORYX DAILY TOBACCO MEDS ORDERED [facility] Sep 02, 2022 08:00 AM VA-TOBACCO USE 30 YEARS OR MORE [facility] Sep 02, 2022 08:00 AM VA-TOBACCO USE ADVICE [facility] Sep 02, 2022 08:00 AM VA-TOBACCO USE 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 YES [facility] Sep 02, 2022 08:00 AM VA-TOBACCO USE MED NOTIFY PROVIDER [facility] Sep 02, 2022 08:00 AM VA-TOBACCO USE WI 30 MIN OF WAKEUP [facility] Sep 02, 2022 08:00 AM VA-TOBACCO USER EVERY DAY [facility] Oct 12, 2016 09:13 AM QUIT TOBACCO USE 1-7 YEARS AGO [facility] Sep 25, 2015 10:24 AM QUIT TOBACCO USE 1-7 YEARS AGO [facility] Oct 05, 2013 03:03 PM QUIT TOBACCO USE 1-7 YEARS AGO PT HAS QUIT LES THAN A YEAR AGO. [facility] Oct 05, 2013 03:03 PM QUIT TOBACCO USE IN PAST YEAR [facility] Advance Directives: All historical and current Section Date Range: From patient's date of to the date document was created. This section includes ALL of a patient's completed or amended [place] Advance and Rescinded Directives. The entries below indicate that a directive exists for the patient, but an actual copy is not included with this document. The data comes from all [place] facilities. Date Advance Directives Provider Source Mar 06, 2023 ADVANCE DIRECTIVE BEV PETTIT [facility] Mar 06, 2023 ADVANCE DIRECTIVE DISCUSSION BEV PETTIT [facility] Apr 20, 2020 ADVANCE DIRECTIVE DISCUSSION ERUM MARTÍNEZ [facility] Feb 24, 2020 ADVANCE DIRECTIVE DISCUSSION POOL FUENTES [facility] Oct 30, 2016 ADVANCE DIRECTIVE KULDEEP FAM [facility] Radiology Reports: +/- 30 days of the [...] the Encounter. The data comes from all [place] treatment facilities. Date/Time Radiology Report Provider Source Jul 14, 2024 11:13 AM KNEE 3 VIEWS (LEFT ): JEYSON SANCHEZ [id number] -[id number] M Exm Date: JUL 14, 2024@11:13 Req Phys: OPAL REEVES Loc: CWM/NO/PACT 4 (Req'g Loc) Img Loc: [facility] 1 Service: [place] [address] (Case [id number] COMPLETE) KNEE 3 VIEWS (LEFT) (RAD Detailed) CPT:27399 Reason for Study: 5 yrs of left knee pain Clinical History: Report Status: Verified Date Reported: JUL 14, 2024 Date Verified: JUL 14, 2024 Cobol Engineer E-Sig:/ES/LIA JACINTO JR Report: Study: AP weight-bearing [...] Primary Interpreting Staff: LIA JACINTO JR, Radiologist (Cobol Engineer) /LIA CARPENTER JR [facility] Encounter Notes: All associated encounter notes This section contains the clinical notes associated to the Encounter. Date/Time Encounter Note(s) Provider Source Jul 12, 2024 08:54 AM LETTERS: LOCAL TITLE: MENTAL HEALTH DIAGNOSTIC RESULTS LETTER STANDARD TITLE: LETTERS DATE OF NOTE: JUL 12, 2024@08:54 ENTRY DATE: JUL 12, 2024@08:54:51 AUTHOR: JAMES VILLANUEVA EXP COSIGNER: URGENCY: STATUS: COMPLETED JEYSON SANCHEZ [address] [place] [id number] JUL 12, 2024 Dear Mr. JEYSON SANCHEZ, Here are the Lab Results I have received from the last Urine Drug screen done on 06/17/24 so you can have a copy of them for your records: LAB CHEMISTRY & HEMATOLOGY Collection DT Specimen Test Name Result Units Ref Range 07/06/2024 14:09 SERUM CHOLESTEROL 251 H mg/dL <7 - 199 TRIGLYCERIDE 70 mg/dL 0 - 150 LDL calculated 171 H mg/dL 0 - 129 CHOL/HDL 3.8 HDL CHOLESTEROL 66 H mg/dL 40 - 60 07/06/2024 14:09 SERUM CALCIUM 9.8 mg/dL 8.5 - 10.2 CREATININE, Serum 1.04 mg/dL 0.50 - 1.40 eGFR(CKD-EPI 2020 87 mL/min Ref: >=60 SODIUM 139 mmol/L 135 - 145 POTASSIUM 4.8 mmol/L 3.5 - 5.0 CHLORIDE 104 mmol/L 100 - 110 CO2 26 mEq/L 20 - 30 UREA NITROGEN 19 mg/dL 7 - 25 GLUCOSE 90 mg/dL 65 - 100 PROTEIN,TOTAL 7.4 g/dL 6.0 - 8.3 ALBUMIN 4.4 g/dL 3.5 - 5.0 ALK YOUNG 95 U/L 40 - 150 AST 21 U/L 5 - 34 BILIRUBIN, TOTAL 0.4 mg/dL 0.2 - 1.2 ALT 34 U/L <6 - 55 07/06/2024 14:09 BLOOD !! HEMOGLOBIN A1C 4.9 % 4.0 - 5.6 07/06/2024 14:09 BLOOD WBC 8.69 K/cmm 4.50 - 11.00 RBC 5.01 M/cmm 4.23 - 5.66 HGB 16.3 g/dL 12.8 - 17 HCT 47.3 % 39.2 - 50.4 MCV 94.4 fl 82 - 99 MCH 32.5 pg 26.2 - 32.6 MCHC 34.5 g/dL 30.8 - 35.1 RDW-CV 12.7 % 12.0 - 16.0 PLT 282 K/cmm 140 - 360 NEUT % 70.3 % 43.7 - 75.8 LYMPH % 22.3 % 14.0 - 42.3 MONO % 5.6 % 5.1 - 13.7 EOS % 0.6 % 0.4 - 6.8 BASO % 0.7 % 0.1 - 2.0 IMMATURE GRAN % 0.5 % 0.0 - 0.7 NRBC % 0.0 % 0.0 - 0.0 NEUT, ABS 6.11 K/cmm 2.20 - 7.60 LYMPH, ABS 1.94 K/cmm 1.00 - 3.20 MONO, ABS 0.49 K/cmm 0.30 - 1.10 EOS, ABS 0.05 K/cmm 0.03 - 0.44 BASO, ABS 0.06 K/cmm 0.01 - 0.13 IMMATURE GRAN, AB 0.04 K/cmm 0.00 - 0.06 NRBC, ABS 0.00 K/cmm 0.00 - 0.00 Lipid Profile Collection DT Specimen Test Name Result Units Ref Range 07/06/2024 14:09 SERUM CHOLESTEROL 251 H mg/dL <7 - 199 07/06/2024 14:09 SERUM TRIGLYCERIDE 70 mg/dL 0 - 150 07/06/2024 14:09 SERUM HDL CHOLESTEROL 66 H mg/dL 40 - 60 07/06/2024 14:09 SERUM LDL calculated 171 H mg/dL 0 - 129 07/06/2024 14:09 SERUM CHOL/HDL 3.8 07/06/2024 14:09 BLOOD !! HEMOGLOBIN A1C 4.9 % 4.0 - 5.6 -------- Sincerely, James Villanueva Jr., MD [facility] JAMES VILLANUEVA MD [place] [facility] [place] [facility] Jun 17, 2024 08:17 AM PSYCHIATRY NOTE: LOCAL TITLE: PSYCHIATRY/FOLLOW-UP NOTE STANDARD TITLE: PSYCHIATRY NOTE DATE OF NOTE: JUN 17, 2024@08:17 ENTRY DATE: JUN 17, 2024@08:17:25 AUTHOR: JAMES VILLANUEVA EXP COSIGNER: URGENCY: STATUS: COMPLETED SUBJECT: Medication Change Medications were reconciled with and he was offered a copy of his Medication List and he declines Active Outpatient Medications: 1) ACETAMINOPHEN 500MG TAB TAKE TWO TABLETS BY MOUTH TWICE DAILY NEEDED 2) ALBUTEROL 90MCG (CFC-F) 200D ORAL INHL INHALE 2 PUFFS BY MOUTH FOUR TIMES DAILY NEEDED FOR BRONCHOSPASM 3) AMLODIPINE BESYLATE 5MG TAB TAKE ONE TABLET BY MOUTH ONCE DAILY FOR BLOOD PRESSURE/HEART, DO NOT TAKE WITH GRAPEFRUIT JUICE 4) MULTIVITAMIN/MINERALS CAP/TAB TAKE ONE CAP/TAB BY MOUTH ONCE DAILY 5) OLANZAPINE 5MG TAB TAKE ONE TABLET BY MOUTH AT BEDTIME DISCONTINUED 1) QUETIAPINE FUMARATE 100MG TAB TAKE ONE TABLET BY MOUTH AT BEDTIME AND TAKE ONE TABLET AT BEDTIME NEEDED AND TAKE ONE TABLET AT BEDTIME NEEDED 2) TRAZODONE HCL 100MG TAB TAKE ONE TABLET BY MOUTH AT BEDTIME AND TAKE ONE- HALF TABLET AT BEDTIME NEEDED JEYSON TIERA SANCHEZ is a [place], 49 yo, male who [facility] for 20 minutes for medication management. Two identifiers were used. CC: There are some medications I want to be back on the quetiapine. It seems to work well with trazodone. I wasn't comfortable when I was in [place] and now I'm in [place]. I'm having problems sleeping. Paras does not like the Zyprexa. Sheilat complains of sleep disturbance with initial insomnia which was improved when he was on trazodone and quetiapine. Vet was up to 450mg of quetiapine and 150mg of trazodone. No alcohol and no substance use, no. Mood is, good with no suicidal or homicidal ideations. Sleep is disturbed and sheilat reports no nightmares. Appetite is, I really don't have one and vet thinks he has lost, a little bit of weight. Some mood swings reported. Sheilat carries a diagnosis of schizoaffective disorder bipolar type. Denies hearing any voices but admits to voices in the past. Discussed restart of quetiapine and vet would like to start back at 300mg and also take trazodone 150mg qHs and titrate doses as needed. Discussed trial of 100 mg of quetiapine to start and increase up to 300mg qHs and start trazodone 100mg with an additional 50mg if needed. Patient education given including not taking anyone else's medications or giving his medications to anyone else and to secure and protect his medications from theft and children. Vet is agreeable. MSE: JEYSON SANCHEZ is a 49 yo, male who is casually dressed wearing jeans, a t-shirt, a shirt jacket, and a cap. He has good personal hygiene. He is alert and oriented in all spheres, pleasant and cooperative with good contact during interview. Speech is goal directed with normal kinetics. Mood and affect is blunted. Memory appears to be intact. No suicidal or homicidal ideations as above. No hallucinations or delusions were elicited. Good general fund of knowledge. Insight and judgement is fair. Assessment: Schizoaffective disorder, bipolar type. Insonmia. AUD in remission Plan: Continue previous quetiapine and trazodone and taper as above. RTC 1-2 months or earlier if needed. Suicide Screen: C-SSRS Screening [place]-Suicide Severity Rating Scale (C-SSRS Screener) 1. Over the past month, have you wished you were or wished you could go to sleep and not wake up? Yes 2. Over the past month, have you had any actual thoughts of killing yourself? No 3. Over the past month, have you been thinking about how you might do this? Response not required due to responses to other questions. 4. Over the past month, have you had these thoughts and had some intention of acting on them? Response not required due to responses to other questions. 5. Over the past month, have you started to work out or worked out the details of how to kill yourself? Response not required due to responses to other questions. 6. If yes, at any time in the past month did you intend to carry out this plan? Response not required due to responses to other questions. 7. In your lifetime, have you ever done anything, started to do anything, or prepared to do anything to end your life (for example, collected pills, obtained a gun, gave away valuables, went to the roof but didn't jump)? No 8. If YES, was this within the past 3 months? Response not required due to responses to other questions. /brown/ JAMES VILLANUEVA JR, MD STAFF PSYCHIATRIST Signed: 06/17/2024 14:24 JAMES VILLANUEVA MD [facility]
--- OUTSIDE RECORDS SUMMARY | 2024-08-31 21:13 | XMS_ITS | Encounter Summary ---
Author Name [facility] [place] Address [address] [place] [address] Care Team Providers Care [employer] Supervisor Name Role Phone MARTIN BOWERS Primary Care Provider OPAL Mckay Primary Care Provider Unav ailable Selected Encounter This section includes the information on record at [place] for the Encounter. Date/Time Encounter Type Encounter Description Reason Pro vider Source Jul 01, 2024 04:05 PM Outpatient Encounter PRIMARY CARE/MEDICINE IHE Encounter Template Text not used by [place] Plan of Treatment: Future Appointments (+ 6 months) and Future Tests (+/- 45 days) The Plan of Treatment section includes future care activities for the patient from all [place] treatmentfacilities. This section includes future appointments and future orders which are active, pending or scheduled. Future Appointments This section includes appointments that were scheduled to occur 6 months from the date of the Encounter, up to a maximum of 20 appointments. The data comes from all [place] treatment facilities. Appointment Date/Time Appointment Type Appointme nt Facility Name Jul 06, 2024 01:00 PM AMBULATORY - MEDICINE [facility] [place] [facility] Jul 06, 2024 02:00 PM [facility] Jul 13, 2024 02:30 PM [facility] [place] [facility] Jul 14, 2024 10:30 AM AM[facility]ULATORY [facility] MEDICINE [facility] [place] [facility] Jul 20, 2024 03:30 PM AMBULATORY [facility] MEDICINE [facility] [place] [facility] Jul 26, 2024 01:30 PM AM[facility]ULATORY [facility] MEDICINE [facility] [place] [facility] Jul 28, 2024 10:30 AM AMBULATORY - PSYCHIATRY [facility] [place] [facility] Aug 10, 2024 10:00 AM AM[facility]ULATORY [facility] MEDICINE [facility] [place] [facility] Aug 10, 2024 03:00 PM AMBULATORY - MEDICINE [facility] [place] [facility] Sep 20, 2024 03:00 PM AMBULATORY [facility] MEDICINE [facility] [place] [facility] Nov 10, 2024 10:00 AM AMBULATORY - MEDICINE [facility] [place] [facility] Active, Pending, and Scheduled Orders This section includes a listing of several types of active, pending, and scheduled orders, including clinic medications orders, diagnostic test orders, procedure orders and consult orders; where the start date of the order is 45 days before the date of the Encounter or 45 days after the date of theEncounter. The data comes from all [place] treatment facilities. Test Date/Time Test Type Test Details Facility Name Jun 09, 2024 01:58 PM Consult Order COMMUNITY CARE-GEN SURGERY [facility] [place] [facility] Jun 09, 2024 03:46 PM Consult Order PSYCHOTHER APY BHIP/[facility] OUTPT [facility] [place] [facility] Jul 14, 2024 10:55 AM Consult Order REHAB MEDI CINE/[facility] OUTPT [facility] [place] [facility] Jul 19, 2024 11:25 AM Consult Order COMMUNITY CARE-DENTAL GENERAL [facility] [place] [facility] Jul 22, 2024 08:51 AM Consult Order COMMUNITY CARE-DENTAL GENERAL [facility] [place] [facility] Jul 22, 2024 01:51 PM Consult Order COMMUNITY CARE-DENTAL GENERAL [facility] [place] [facility] Lab Results: +/- 30 days of the encounter This section includes the Chemistry and Hematology Lab Results on record with [place] for the patient. Radiology Reports and Pathology Reports are provided separately, in subsequent sections. Lab Results This section contains the Chemistry/Hematology Results that were resulted 30 days before or 30 daysafter the date of the Encounter. Date/Time Source Result Type Result - Unit Interpretation Reference Range Comment Jul 06, 2024 02:09 PM [facility] LIPID PANEL FASTING Specimen Type: SERUM No comment entered. Ordering Provider: PERRY LONG MD Report Released Date/Time: Jun 17, 2024 02:14 PM Reporting Lab: [address] [address] Performing Lab: [address] [address] CHOLESTEROL 251 mg/dL H TRIGLYCERIDE 70 mg/dL 0-150 LDL calculated 171 mg/dL H 0-129 CHOL/HDL 3.8 HDL CHOLESTEROL 66 mg/dL H 40-60 Jul 06, 2024 02:09 PM [facility] HEMOGLOBIN A1C PANEL Specimen Type: BLOOD Comment: [...] Jul 01, 2024 03:56 PM Reporting Lab: [address] [address] Performing Lab: [address] [address] HEMOGLOBIN A1C 4.9 4.0-5.6 Jul 06, 2024 02:09 PM [facility] CALCIUM Specimen Type: SERUM No comment entered. Ordering Provider: Brian REEVES Report Released Date/Time: Jul 01, 2024 03:56 PM Reporting Lab: [facility] [address] [address] Performing Lab: [address] [address] CALCIUM 9.8 mg/dL 8.5-10.2 Jul 06, 2024 02:09 PM [facility] LIVER FUNCTION Specimen Type: SERUM No comment entered. Ordering Provider: Brian REEVES Report Released Date/Time: Jul 01, 2024 03:56 PM Reporting Lab: [address] [address] Performing Lab: [address] [address] PROTEIN,TOTAL 7.4 g/dL 6.0-8.3 ALBUMIN 4.4 g/dL 3.5-5.0 ALKALINE PHOSPHATASE 95 U/L 40-150 AST 21 U/L 5-34 ALT 34 U/L BILIRUBIN, TOTAL 0.4 mg/dL 0.2-1.2 Jul 06, 2024 02:09 PM [facility] BASIC METABOLIC PANEL (non-fasting) Specimen Type: SERUM No comment entered. Ordering Provider: Brian REEVES Report Released Date/Time: Jul 01, 2024 03:56 PM Reporting Lab: [address] [address] Performing Lab: [address] [address] UREA NITROGEN 19 mg/dL 7-25 GLUCOSE 90 mg/dL 65-100 SODIUM 139 mmol/L 135-145 POTASSIUM 4.8 mmol/L 3.5-5.0 CHLORIDE 104 mmol/L 100-110 CO2 26 meq/L 20-30 CREATININE, Serum 1.04 mg/dL 0.50-1.40 eGFR(CKD-EPI 2020) 87 mL/min >60 Jul 06, 2024 02:09 PM [facility] CBC AND DIFF (AUTO) Specimen Type: BLOOD No comment entered. Ordering Provider: Brian REEVES Report Released Date/Time: Jul 01, 2024 03:56 PM Reporting [facility] [address] [address] Performing Lab[facility] [address] [address] WBC 8.69 10*3/uL 4.50-11.00 RBC 5.01 10*6/uL [...] and tobacco- related health factors from the [place] facility where the Encounter took place. Current Smoking Status This section includes the most current smoking, or tobacco-related health factor, from the [place] facility where the Encounter took place. Date/Time Current Smoking Status Comment Gino hanson Nov 19, 2023 10:00 AM VA-TOBACCO USER EVERY DAY [facility] Tobacco Use History This section includes a history of the smoking, or tobacco-related health factors, that were collected on or before the date of the Encounter. The data comes from the [place] facility where the Encounter took place. Date/Time Smoking Status/Tobac co Use Comment Facility Nov 19, 2023 10:00 AM VA-TOBACCO USE ADVICE [place] [facility] [place] [facility] Nov 19, 2023 10:00 AM VA-TOBACCO USE NEON SIGN MAKER NO [place] [facility] [place] [facility] Nov 19, 2023 10:00 AM VA-TOBACCO USE MED NO [place] [facility] [place] [place] [facility] Nov 19, 2023 10:00 AM VA-TOBACCO USE [place] 30 MIN OF WAKEUP [place] [facility] [place] [facility] Nov 19, 2023 10:00 AM VA-TOBACCO USER EVERY DAY [place] [facility] [place] [facility] February 10, 2023 01:00 PM ORYX ADMIT TOBACCO SCREEN YES [place] [facility] [place] [facility] February 10, 2023 01:00 PM ORYX ADMIT TOBACCO USE CIGS GR 5D [place] [facility] [place] [facility] February 10, 2023 01:00 PM ORYX DAILY TOBACCO NEON SIGN MAKER RECEIVED [place] [facility] February 10, 2023 01:00 PM ORYX DAILY TOBACCO MEDS ORDERED [place] [facility] [place] [facility] Sep 02, 2022 08:00 AM VA-TOBACCO USE 30 YEARS OR MORE [place] [facility] [place] [facility] Sep 02, 2022 08:00 AM VA-TOBACCO USE ADVICE [place] [facility] [place] [place] [facility] Sep 02, 2022 08:00 AM VA-TOBACCO USE NEON SIGN MAKER YES [place] [facility] [place] [facility] Sep 02, 2022 08:00 AM VA-TOBACCO USE MED NOTIFY PROVIDER [place] [facility] [place] [facility] Sep 02, 2022 08:00 AM VA-TOBACCO USE [place] 30 MIN OF WAKEUP [place] [facility] [place] [facility] Sep 02, 2022 08:00 AM VA-TOBACCO USER EVERY DAY [place] [facility] [place] [facility] Oct 12, 2016 09:13 AM QUIT TOBACCO USE 1-7 YEARS AGO [facility] Sep 25, 2015 10:24 AM QUIT TOBACCO USE 1-7 YEARS AGO [facility] Oct 05, 2013 03:03 PM QUIT TOBACCO USE 1-7 YEARS AGO PT HAS QUIT LES THAN A YEAR AGO. [facility] Oct 05, 2013 03:03 PM QUIT TOBACCO USE IN PAST YEAR [facility] Advance Directives: All historical and current Section Date Range: From patient's date of to the date document was created. This section includes ALL of a patient's completed or amended [place] Advance and Rescinded Directives. The entries below indicate that a directive exists for the patient, but an actual copy is not included with this document. The data comes from all [place] facilities. Date Advance Directives Provider Source Mar 06, 2023 ADVANCE DIRECTIVE BEV PETTIT [facility] Mar 06, 2023 ADVANCE DIRECTIVE DISCUSSION BEV PETTIT [facility] Apr 20, 2020 ADVANCE DIRECTIVE DISCUSSION ERUM MARTÍNEZ [facility] Feb 24, 2020 ADVANCE DIRECTIVE DISCUSSION POOL FUENTES [facility] Oct 30, 2016 ADVANCE DIRECTIVE KULDEEP FAM [facility] Radiology Reports: +/- 30 days of the [...] the Encounter. The data comes from all [place] treatment facilities. Date/Time Radiology Report Provider Source Jul 14, 2024 11:13 AM KNEE 3 VIEWS (LEFT ): JEYSON SANCHEZ [id number] -[id number] M Exm Date: JUL 14, 2024@11:13 Req Phys: OPAL REEVES Loc: CWM/NO/PACT 4 (Req'g Loc) Img Loc: [facility]BUILDING 1 Service: Unknown [place] [address] (Case [id number] COMPLETE) KNEE 3 VIEWS (LEFT) (RAD Detailed) CPT:66138 Reason for Study: 5 yrs of left knee pain Clinical History: Report Status: Verified Date Reported: JUL 14, 2024 Date Verified: JUL 14, 2024 Retail General Manager E-Sig:/ES/LIA JACINTO JR Report: Study: AP weight-bearing [...] Primary Interpreting Staff: LIA JACINTO JR, Radiologist (Retail General Manager) /LIA CARPENTER JR [facility] Encounter Notes: All associated encounter notes This section contains the clinical notes associated to the Encounter. Date/Time Encounter Note(s) Provider Source Jul 01, 2024 04:05 PM PRIMARY CARE TELEP ALLISON ENCOUNTER NOTE: LOCAL TITLE: TELEPHONE NOTE/PRIMARY CARE STANDARD TITLE: PRIMARY CARE TELEPHONE ENCOUNTER NOTE DATE OF NOTE: JUL 01, 2024@16:05 ENTRY DATE: JUL 01, 2024@16:05:44 AUTHOR: QUINN WONG EXP COSIGNER: URGENCY: STATUS: COMPLETED requesting L knee brace due to service connection injury. /brown/ QUINN WONG Advanced Field Geologist Signed: 07/01/2024 16:06 Receipt Acknowledged By: 07/01/2024 16:07 /brown/ OPAL REEVES MD PHYSICIAN QUINN WONG [facility]
--- OUTSIDE RECORDS SUMMARY | 2024-08-31 21:13 | XMS_ITS ---
Author Name [facility] [place] [facility] [place] Organization [facility] [place] Address [address] [place] [address] Care Team Providers Care Tobacco Sampler Name Role Phone MARTIN BOWERS Primary Care Provider OPAL Mckay Primary Care Provider Unajerome ailable Selected Encounter This section includes the information on record at [place] for the Encounter. 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 Encounter Template Text not used by [place] Assessments - Encounter Diagnoses This section includes the primary and secondary diagnoses documented for the Encounter. Date/Time Primary/Secondary Diagnosis Diagnosis Name Provider Source Jul 06, 2024 04:22 PM PRIMARY Other low back pain GABE BRAR [facility] Plan of Treatment: Future Appointments (+ 6 months) and Future Tests (+/- 45 days) The Plan of Treatment section includes future care activities for the patient from all [place] treatmentfacilities. This section includes future appointments and future orders which are active, pending or scheduled. Future Appointments This section includes appointments that were scheduled to occur 6 months from the date of the Encounter, up to a maximum of 20 appointments. The data comes from all [place] treatment facilities. Appointment Date/Time Appointment Type Appointme nt Facility Name Jul 13, 2024 02:30 PM AMBULATORY [facility] MEDICINE [facility] [place] [facility] Jul 14, 2024 10:30 AM AMBULATORY - MEDICINE [facility] [place] [facility] Jul 20, 2024 03:30 PM AMBULATORY - MEDICINE [facility] [place] [facility] Jul 26, 2024 01:30 PM AMBULATORY - MEDICINE [facility] [place] [facility] Jul 28, 2024 10:30 AM AMBULATORY - PSYCHIATRY [facility] [place] [facility] Aug 10, 2024 10:00 AM AMBULATORY - MEDICINE [facility] [place] [facility] Aug 10, 2024 03:00 PM AMBULATORY - MEDICINE [facility] [place] [facility] Sep 20, 2024 03:00 PM AMBULATORY - MEDICINE [facility] [place] [facility] Nov 10, 2024 10:00 AM AMBULATORY - [place]ICINE [place] [facility] [place] [facility] Active, Pending, and Scheduled Orders This section includes a listing of several types of active, pending, and scheduled orders, including clinic medications orders, diagnostic test orders, procedure orders and consult orders; where the start date of the order is 45 days before the date of the Encounter or 45 days after the date of theEncounter. The data comes from all [place] treatment [facility]. Test Date/Time Test Type Test Details Facility Name Jun 09, 2024 01:58 PM Consult Order COMMUNITY CARE-GEN SURGERY Cons Java Software Developer's Choice [facility] [place] [facility] Jun 09, 2024 03:46 PM Consult Order PSYCHOTHER APY BHIP/[facility] OUTPT Cons [employer] Developer[employer] Choice [facility] [place] [facility] Jul 14, 2024 10:55 AM Consult Order REHAB MEDI CINE/[facility] OUTPT Cons [employer] Developer[employer] Choice [facility] [place] [facility] Jul 19, 2024 11:25 AM Consult Order COMMUNITY CARE-DENTAL GENERAL Cons [employer] Developer's Choice [facility] [place] [facility] Jul 22, 2024 08:51 AM Consult Order COMMUNITY CARE-DENTAL GENERAL Cons [employer] Software Developer's Choice [facility] [place] [facility] Jul 22, 2024 01:51 PM Consult Order COMMUNITY [facility]-DENTAL GENERAL Cons Java Software Developer's Choice [facility] Lab Results: +/- 30 days of the encounter This section includes the Chemistry and Hematology Lab Results on record with [place] for the patient. Radiology Reports and Pathology Reports are provided separately, in subsequent sections. Lab Results This section contains the Chemistry/Hematology Results that were resulted 30 days before or 30 daysafter the date of the Encounter. Date/Time Source Result Type Result - Unit Interpretation Reference Range Comment Jul 06, 2024 02:09 PM [facility] LIPID PANEL FASTING Specimen Type: SERUM No comment entered. Ordering Provider: PERRY LONG MD Report Released Date/Time: Jun 17, 2024 02:14 PM Reporting Lab: [facility] [address] [facility] [address] Performing Lab: [address] [address] CHOLESTEROL 251 mg/dL H TRIGLYCERIDE 70 mg/dL 0-150 LDL calculated 171 mg/dL H 0-129 CHOL/HDL 3.8 HDL CHOLESTEROL 66 mg/dL H 40-60 Jul 06, 2024 02:09 PM [facility] HEMOGLOBIN A1C PANEL Specimen Type: [...] Jul 01, 2024 03:56 PM Reporting Lab: [facility] [address] [facility] [address] Performing Lab: [address] [address] HEMOGLOBIN A1C 4.9 4.0-5.6 Jul 06, 2024 02:09 PM [facility] CALCIUM Specimen Type: SERUM No comment entered. Ordering Provider: Brian REEVES Report Released Date/Time: Jul 01, 2024 03:56 PM Reporting Lab: [facility] [address] [facility] [address] Performing Lab: [address] [address] CALCIUM 9.8 mg/dL 8.5-10.2 Jul 06, 2024 02:09 PM [facility] LIVER FUNCTION Specimen Type: SERUM No comment entered. Ordering Provider: Brian REEVES Report Released Date/Time: Jul 01, 2024 03:56 PM Reporting Lab: [facility] [address] [facility] [address] Performing Lab: [address] [address] PROTEIN,TOTAL 7.4 g/dL 6.0-8.3 ALBUMIN 4.4 g/dL 3.5-5.0 ALKALINE PHOSPHATASE 95 U/L 40-150 AST 21 U/L 5-34 ALT 34 U/L BILIRUBIN, TOTAL 0.4 mg/dL 0.2-1.2 Jul 06, 2024 02:09 PM [facility] BASIC METABOLIC PANEL (non-fasting) Specimen Type: SERUM No comment entered. Ordering Provider: Brian REEVES Report Released Date/Time: Jul 01, 2024 03:56 PM Reporting Lab: [address] [address] Performing Lab: [address] [address] UREA NITROGEN 19 mg/dL 7-25 GLUCOSE 90 mg/dL 65-100 SODIUM 139 mmol/L 135-145 POTASSIUM 4.8 mmol/L 3.5-5.0 CHLORIDE 104 mmol/L 100-110 CO2 26 meq/L 20-30 CREATININE, Serum 1.04 mg/dL 0.50-1.40 eGFR(CKD-EPI 2020) 87 mL/min >60 Jul 06, 2024 02:09 PM [facility] CBC AND DIFF (AUTO) Specimen Type: BLOOD No comment entered. Ordering Provider: Brian REEVES Report Released Date/Time: Jul 01, 2024 03:56 PM Reporting Lab: [facility] [address] [facility] [address] Performing Lab: [facility] [address] [facility] [address] WBC 8.69 10*3/uL 4.50-11.00 RBC 5.01 10*6/uL [...] and tobacco- related health factors from the [place] facility where the Encounter took place. Current Smoking Status This section includes the most current smoking, or tobacco-related health factor, from the [place] facility where the Encounter took place. Date/Time Current Smoking Status Comment Gino hanson Nov 19, 2023 10:00 AM VA-TOBACCO USER EVERY DAY [place] [facility] Tobacco Use History This section includes a history of the smoking, or tobacco-related health factors, that were collected on or before the date of the Encounter. The data comes from the [facility] where the Encounter took place. 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 [place] [facility] [place] [facility] Nov 19, 2023 10:00 AM VA-TOBACCO USE MED NO [place] [facility] [place] [facility] Nov 19, 2023 10:00 AM VA-TOBACCO USE WI 30 MIN OF WAKEUP [place] [facility] [place] [facility] Nov 19, 2023 10:00 AM VA-TOBACCO USER EVERY DAY [place] [facility] [place] [facility] February 10, 2023 01:00 PM ORYX ADMIT TOBACCO SCREEN YES [place] [facility] [place] [facility] February 10, 2023 01:00 PM ORYX ADMIT TOBACCO USE CIGS GR 5D [place] [facility] [place] [facility] February 10, 2023 01:00 PM ORYX DAILY TOBACCO SALES SYSTEMS ENGINEER RECEIVED [place] [facility] [place] [facility] February 10, 2023 01:00 PM ORYX DAILY TOBACCO MEDS ORDERED [place] [facility] [place] [facility] Sep 02, 2022 08:00 AM VA-TOBACCO USE 30 YEARS OR MORE [place] [facility] [place] [facility] Sep 02, 2022 08:00 AM VA-TOBACCO USE ADVICE [place] [facility] [place] [facility] Sep 02, 2022 08:00 AM VA-TOBACCO USE SALES SYSTEMS ENGINEER YES [place] [facility] [place] [facility] Sep 02, 2022 08:00 AM VA-TOBACCO USE MED NOTIFY PROVIDER [place] [facility] [place] [facility] Sep 02, 2022 08:00 AM VA-TOBACCO USE WI 30 MIN OF WAKEUP [place] [facility] [place] [facility] Sep 02, 2022 08:00 AM VA-TOBACCO USER EVERY DAY [facility] Oct 12, 2016 09:13 AM QUIT TOBACCO USE 1-7 YEARS AGO [facility] Sep 25, 2015 10:24 AM QUIT TOBACCO USE 1-7 YEARS AGO [facility] Oct 05, 2013 03:03 PM QUIT TOBACCO USE 1-7 YEARS AGO PT HAS QUIT LES THAN A YEAR AGO. [facility] Oct 05, 2013 03:03 PM QUIT TOBACCO USE IN PAST YEAR [facility] Advance Directives: All historical and current Section Date Range: From patient's date of to the date document was created. This section includes ALL of a patient's completed or amended [place] Advance and Rescinded Directives. The entries below indicate that a directive exists for the patient, but an actual copy is not included with this document. The data comes from all [place] facilities. Date Advance Directives Provider Source Mar 06, 2023 ADVANCE DIRECTIVE BEV PETTIT [facility] Mar 06, 2023 ADVANCE DIRECTIVE DISCUSSION BEV PETTIT [facility] Apr 20, 2020 ADVANCE DIRECTIVE DISCUSSION ERUM MARTÍNEZ [facility] Feb 24, 2020 ADVANCE DIRECTIVE DISCUSSION POOL [facility] Oct 30, 2016 ADVANCE DIRECTIVE KULDEEP FAM [facility] Radiology Reports: +/- 30 days of the [...] the Encounter. The data comes from all [place] treatment facilities. Date/Time Radiology Report Provider Source Jul 14, 2024 11:13 AM KNEE 3 VIEWS (LEFT ): JEYSON SANCHEZ [id number] -[id number] M Exm Date: JUL 14, 2024@11:13 Req Phys: OPAL REEVES Loc: CWM/NO/PACT 4 (Req'g Loc) Img Loc: [facility]/BUILDING 1 Service: Unknown [facility] [address] (Case [id number] COMPLETE) KNEE 3 VIEWS (LEFT) (RAD Detailed) CPT:87410 Reason for Study: 5 yrs of left knee pain Clinical History: Report Status: Verified Date Reported: JUL 14, 2024 Date Verified: JUL 14, 2024 Guitar Teacher E-Sig:/ES/LIA JACINTO JR Report: Study: AP weight-bearing [...] Primary Interpreting Staff: LIA JACINTO JR, Radiologist (Guitar Teacher) /LIA CARPENTER JR [facility] Encounter Notes: All associated encounter notes This section contains the clinical notes associated to the Encounter. Date/Time Encounter Note(s) Provider Source Jul 06, 2024 01:52 PM CHIROPRACTIC CONSU LT: LOCAL TITLE: CONSULT REPORT/CHIROPRACTOR STANDARD TITLE: CHIROPRACTIC CONSULT DATE OF NOTE: JUL 06, 2024@13:52 ENTRY DATE: JUL 06, 2024@13:52:27 AUTHOR: GABE BRAR COSIGNER: URGENCY: STATUS: COMPLETED LAURAJEYSON MOTT is a 49 WHITE MALE with prior history of COMBAT SERVICE INDICATED: No POS: PERIOD OF SERVICE - OTHER OR NONE SERVICE BRANCH: [place] Service Connected Disabilities with % Eligibility: Active Problem Acute back pain - lumbar M54.50 06/09/2024 OPAL REEVESea unguium B35.1 06/09/2024 OPAL REEVES Exposure to potentially hazardous s 11/12/2023 TESS SMALL[place]OD Homeless Z59.01 04/21/2023 ROSANNA JOYCE Inguinal hernia K40.91 06/09/2024 OPAL REEVES Cannabis dependence F12.20 02/21/2023 JULES PEREZ Schizoaffective disorder, bipolar t 02/20/2023 JULES PEREZ Alcohol dependence F10.24 02/10/2023 ADELSO LOMBARDO Hypertension I10. 06/09/2024 OPAL REEVES Gastroesophageal reflux disease K21 09/02/2022 FABRICIO PRINCE Nicotine dependence F17.200 09/02/2022 JAMAR PRINCEAMMED JAWED Bipolar disorder F31.9 09/02/2022 FABRICIO PRINCE JAWED Positive PPD R76.11 09/02/2022 FABRICIO PRINCE JAWED Left knee pain (SNOMED CT [id number] 09/02/2022 SURESHMOHAMMED JAWED Asthma (SNOMED CT [id number]) J45.99 09/02/2022 FABRICIO PRINCE JAWJENNIFER Past Surgeries: knee Patient [facility] [place] [facility] with C/C Bilat low back pain He also C/O cramps in R Lower leg and R foot and left knee pain. He C/O left inguinal hernia after stretching. 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 [facility], 20 years ago, self pay Exercise/Activities: tries to walk more Vet has not tried Yoga Pertinent Imaging: Reviewed Radiologist's report Patient denies bowel/bladder dysfunction saddle anesthesia, recent fevers, infections, night sweats, unexplained weight loss, dysphagia, dysarthria, numbness, diploplia GOALS: be able to dress w/o pain; get a bicycle EXAM Patient enters clinic FWB without need of assistive device - without signs of acute distress, antalgia, or gait alteration Patient appears to be well nourished, is well groomed, pleasant, cooperative in NAD, gait and station unremarkable. AAOx3, speech is fluent. Farmer's: Neg bilat Rhombergs no sway General exam findings Cursory PE demonstrates no acute or emergent health conditions. No signs of acute pulmonary distress, breathing is steady and non-labored. No distal edema or signs of peripheral circulatory distress. No saddle paresthesia and no acute bowel or bladder dysfunction. Active LUMBAR ROM limited and provocative into: Extension Flexion R Lateral Bending Motor strength graded 5/5 hip flexion 5/5 5/5 knee extension 5/5 5/5 foot dorsifexion 5/5 5/5 foot inversion 5/5 5/5 foot eversion 5/5 5/5 L4-S1 (B) DTR's 2+ at L4 & 2+ S1 Sensation grossly intact to light touch L4-S1 (B) No clonus appreciated upon ankle dorsiflexion. Denies calf tenderness (B) Lumbar Orthopedic testing: Valsalva Maneuver: Neg Seated Dural Tension Test neg SLR/seated slump NEG Kemps POS sacral base push POS SI provocation testing NEG Fabere's POS ondina Direct S-I palpation POS Soft tissue palpation reveals hypertonicity and tenderness Left gluteal, Bilat SI jts R>L Motion palpation reveals intersegmental lumbar somatic dysfunction with relative joint hypomobility. IMPRESSION: It is reasonable in this case to apply a conservative course of manual therapy to address myofascial and joint findings while encouraging activity and stretching specific to the patient's presentation. PLAN: Treatment #1. I explained all of this to the patient and the patient seemed to understand. Treatment options from least invasive to most with the associated risks, benefits, alternatives, and potential outcomes were discussed in detail. Potential risks associated with spinal manipulative therapy, the following were shared with the patient: Likely (transient mild post-treatment soreness); Less Likely (Bruising, sprain/strain); Rare but potentially serious (disc herniation, fracture); Extremely Rare but serious (epidural spinal hematoma, cauda equina syndrome). Informed consent obtained to provide management consisting of: ~ Lumbar F/D decompression manipulation with the intended goal of the reduction of LBP and limitations related to LBP through the mechanical action of lumbar flexion with a gentle distractive force. ~ MFR as per palpation (10 minutes) ~ Mobilization/SMT to Cervical, Thoracic, and/or Lumbar and S-I regions in lateral decubitus posture ~ Prone or supine thoracic mobilization/SMT ~ Prone hip flexor/quadriceps stretching as per palpation ~ Supine gluteal stretching as per palpation Treatment: active/corrective CMT lumbar side posture,push move Treatment carried out today and well tolerated. Patient has difficulty bending his knee. The prognosis,at this time,is fair to good Short term goals include improvement in excess 25% on regional disability questionnaire and/or NRS over the first 3-4 treatment visits. It was explained to the patient that resolution of soft tissue complaints through conservative management requires compliance with at home recommendations and avoidance of aggravating factors. Self-Care Recommendations: try to limit time playing video games and have good posture ~Patient encouraged to engage in activities such as a walking program with established goals to reduce fear-avoidance behaviors with regard to movement,and improve overall health and fitness. emphasis placed upon function over pain with effort made each day to remain active understanding that normal daily activities may temporarily increase pain experience but are not inherently injurious and should be explored to the extent possible. Provided patient with Yoga flyer ~ Activity such as Yoga encouraged to enhance relaxation, flexibility, posture, core stability, balance, and pain modulation. Plan:trial Chiro Visit 1 F/U Seek urgent care as needed. CMT: chiropractic manipulative therapy SMT: Spinal Manipulative Therapy F/D: Flexion Distraction MFR: Myofascial Release S-I: Sacroiliac MFTP: Myofascial Trigger Point NRS: Numeric Rating Scale N/T: Numbness/Tingling PIR: Post isometric relaxation /es/ GABE BRAR [place]. CHIROPRACTOR Signed: 07/06/2024 16:25 GABE BRAR [facility]
--- OUTSIDE RECORDS SUMMARY | 2024-08-31 21:13 | XMS_ITS ---
Author Name [facility] Organization [facility] Address [address] [place] [address] Care Team Providers Care Insurance Professional Name Role Phone MARTIN BOWERS Primary Care Provider OPAL Mckay Primary Care Provider Unajerome ailable Selected Encounter This section includes the information on record at OR for the Encounter. Date/Time Encounter Type Encounter Description Reason Provider Source Jul 06, 2024 02:00 PM ORTHC/PROSTC MGMT SBSQ ENC PHYSICAL THERAPY ICD-10-CM M25.562 Pain in left knee EDMUNDCRYSTAL IHAzael Encounter Template Text not used by OR Assessments - Encounter Diagnoses This section includes the primary and secondary diagnoses documented for the Encounter. Date/Time Primary/Secondary Diagnosis Diagnosis Name Provider Source Jul 06, 2024 02:33 PM PRIMARY Pain in left knee NIGHAT SHAFFERHenrietta Hummel [place] [facility] [place] [facility] Plan of Treatment: Future Appointments (+ 6 months) and Future Tests (+/- 45 days) The Plan of Treatment section includes future care activities for the patient from all [facility] treatment[facility]ilities. This section includes future appointments and future orders which are active, pending or scheduled. Future Appointments This section includes appointments that were scheduled to occur 6 months from the date of the Encounter, up to a maximum of 20 appointments. The data comes from all [place] treatment facilities. Appointment Date/Time Appointment Type Appointme nt Facility Name Jul 13, 2024 02:30 PM AMBULATORY - MEDICINE [facility] [place] [facility] Jul 14, 2024 10:30 AM AMBULATORY - MEDICINE [facility] [place] [facility] Jul 20, 2024 03:30 PM AMBULATORY - MEDICINE [facility] [place] [facility] Jul 26, 2024 01:30 PM AMBULATORY - MEDICINE [facility] [place] [facility] Jul 28, 2024 10:30 AM AMBULATORY - PSYCHIATRY [facility] [place] [facility] Aug 10, 2024 10:00 AM AMBULATORY - MEDICINE [facility] [place] [facility] Aug 10, 2024 03:00 PM AMBULATORY - MEDICINE [facility] [place] [facility] Sep 20, 2024 03:00 PM AMBULATORY - MEDICINE [facility] [place] [facility] Nov 10, 2024 10:00 AM AMBULATORY - MEDICINE [place] [facility] [place] [facility] Active, Pending, and Scheduled Orders This section includes a listing of several types of active, pending, and scheduled orders, including clinic medications orders, diagnostic test orders, procedure orders and consult orders; where the start date of the order is 45 days before the date of the Encounter or 45 days after the date of theEncounter. The data comes from all [place] treatment [facility]. Test Date/Time Test Type Test Details Facility Name Jun 09, 2024 01:58 PM Consult Order COMMUNITY CARE-GEN SURGERY [employer] Worker's Choice [facility] [place] [facility] Jun 09, 2024 03:46 PM Consult Order PSYCHOTHER APY BHIP/[facility] OUTPT [employer] [facility] [place] [facility] Jul 14, 2024 10:55 AM Consult Order REHAB MEDI CINE/[facility] OUTPT [employer] Work[employer] [facility] [place] [facility] Jul 19, 2024 11:25 AM Consult Order COMMUNITY CARE-DENTAL GENERAL [employer] Worker's Choice [facility] [place] [facility] Jul 22, 2024 08:51 AM Consult Order COMMUNITY CARE-DENTAL GENERAL [employer] Worker's Choice [facility] [place] [facility] Jul 22, 2024 01:51 PM Consult Order [facility]-DENTAL GENERAL [employer] Worker's Choice [facility] Lab Results: +/- 30 days of the encounter This section includes the Chemistry and Hematology Lab Results on record with OR for the patient. Radiology Reports and Pathology Reports are provided separately, in subsequent sections. Lab Results This section contains the Chemistry/Hematology Results that were resulted 30 days before or 30 daysafter the date of the Encounter. Date/Time Source Result Type Result - Unit Interpretation Reference Range Comment Jul 06, 2024 02:09 PM [facility] LIPID PANEL FASTING Specimen Type: SERUM No comment entered. Ordering Provider: PERRY LONG MD Report Released Date/Time: Jun 17, 2024 02:14 PM Reporting Lab: [facility] [address] [facility] [address] Performing Lab: [address] [address] CHOLESTEROL 251 mg/dL H TRIGLYCERIDE 70 mg/dL 0-150 LDL calculated 171 mg/dL H 0-129 CHOL/HDL 3.8 HDL CHOLESTEROL 66 mg/dL H 40-60 Jul 06, 2024 02:09 PM [facility] HEMOGLOBIN A1C PANEL Specimen Type: BLOOD [...] Jul 01, 2024 03:56 PM Reporting Lab: [facility] [address] [facility] [address] Performing Lab: [address] [address] HEMOGLOBIN A1C 4.9 4.0-5.6 Jul 06, 2024 02:09 PM [facility] CALCIUM Specimen Type: SERUM No comment entered. Ordering Provider: Brian REEVES Report Released Date/Time: Jul 01, 2024 03:56 PM Reporting Lab: [facility] [address] [facility] [address] Performing Lab: [address] [address] CALCIUM 9.8 mg/dL 8.5-10.2 Jul 06, 2024 02:09 PM [facility] LIVER FUNCTION Specimen Type: SERUM No comment entered. Ordering Provider: Brian REEVES Report Released Date/Time: Jul 01, 2024 03:56 PM Reporting Lab: [facility] [address] [facility] [address] Performing Lab: [address] [address] PROTEIN,TOTAL 7.4 g/dL 6.0-8.3 ALBUMIN 4.4 g/dL 3.5-5.0 ALKALINE PHOSPHATASE 95 U/L 40-150 AST 21 U/L 5-34 ALT 34 U/L BILIRUBIN, TOTAL 0.4 mg/dL 0.2-1.2 Jul 06, 2024 02:09 PM [facility] BASIC METABOLIC PANEL (non-fasting) Specimen Type: SERUM No comment entered. Ordering Provider: Brian REEVES Report Released Date/Time: Jul 01, 2024 03:56 PM Reporting Lab: [address] [address] Performing Lab: [address] [address] UREA NITROGEN 19 mg/dL 7-25 GLUCOSE 90 mg/dL 65-100 SODIUM 139 mmol/L 135-145 POTASSIUM 4.8 mmol/L 3.5-5.0 CHLORIDE 104 mmol/L 100-110 CO2 26 meq/L 20-30 CREATININE, Serum 1.04 mg/dL 0.50-1.40 eGFR(CKD-EPI 2020) 87 mL/min >60 Jul 06, 2024 02:09 PM [facility] CBC AND DIFF (AUTO) Specimen Type: BLOOD No comment entered. Ordering Provider: Brian REEVES Report Released Date/Time: Jul 01, 2024 03:56 PM Reporting Lab: [facility] [address] [facility] [address] Performing Lab: [facility] [address] [facility] [address] WBC 8.69 10*3/uL 4.50-11.00 RBC 5.01 10*6/uL [...] and tobacco- related health factors from the OR facility where the Encounter took place. Current Smoking Status This section includes the most current smoking, or tobacco-related health factor, from the OR facility where the Encounter took place. Date/Time Current Smoking Status Comment Gino hanson Nov 19, 2023 10:00 AM VA-TOBACCO USER EVERY DAY [facility] Tobacco Use History This section includes a history of the smoking, or tobacco-related health factors, that were collected on or before the date of the Encounter. The data comes from the [facility] where the Encounter took place. 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 [facility] [place] [facility] Nov 19, 2023 10:00 AM VA-TOBACCO USE MED NO [facility] [place] [facility] Nov 19, 2023 10:00 AM VA-TOBACCO USE WI 30 MIN OF WAKEUP [facility] [place] [facility] Nov 19, 2023 10:00 AM VA-TOBACCO USER EVERY DAY [facility] [place] [facility] February 10, 2023 01:00 PM ORYX ADMIT TOBACCO SCREEN YES [facility] [place] [facility] February 10, 2023 01:00 PM ORYX ADMIT TOBACCO USE CIGS GR 5D [facility] [place] [facility] February 10, 2023 01:00 PM ORYX DAILY TOBACCO MVA REACTOR OPERATOR HEAD RECEIVED [facility] [place] [facility] February 10, 2023 01:00 PM ORYX DAILY TOBACCO MEDS ORDERED [facility] [place] [facility] Sep 02, 2022 08:00 AM VA-TOBACCO USE 30 YEARS OR MORE [place] [facility] [place] [facility] Sep 02, 2022 08:00 AM VA-TOBACCO USE ADVICE [facility] [place] [facility] Sep 02, 2022 08:00 AM VA-TOBACCO USE 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 [facility] Oct 05, 2013 03:03 PM QUIT TOBACCO USE IN PAST YEAR [facility] Advance Directives: All historical and current Section Date Range: From patient's date of to the date document was created. This section includes ALL of a patient's completed or amended OR Advance and Rescinded Directives. The entries below indicate that a directive exists for the patient, but an actual copy is not included with this document. The data comes from all OR facilities. Date Advance Directives Provider Source Mar 06, 2023 ADVANCE DIRECTIVE BEV PETTIT [facility] Mar 06, 2023 ADVANCE DIRECTIVE DISCUSSION BEV PETTIT [facility] Apr 20, 2020 ADVANCE DIRECTIVE DISCUSSION ERUM MARTÍNEZ [facility] Feb 24, 2020 ADVANCE DIRECTIVE DISCUSSION POOL FUENTES [facility] Oct 30, 2016 ADVANCE DIRECTIVE KULDEEP FAM [facility] Radiology Reports: +/- 30 days of [...] the Encounter. The data comes from all [place] treatment facilities. Date/Time Radiology Report Provider Source Jul 14, 2024 11:13 AM KNEE 3 VIEWS (LEFT ): JEYSON SANCHEZ [id number] -[id number] M Exm Date: JUL 14, 2024@11:13 Req Phys: D'GRUPO,OPAL Levine Sandra Loc: CWM/NO/PACT 4 (Req'g Loc) Img Loc: [facility]/BUILDING 1 Service: Unknown [place] [address] (Case [id number] COMPLETE) KNEE 3 VIEWS (LEFT) (RAD Detailed) CPT:23822 Reason for Study: 5 yrs of left knee pain Clinical History: Report Status: Verified Date Reported: JUL 14, 2024 Date Verified: JUL 14, 2024 Community Organization Aide E-Sig:/ES/LIA JACINTO JR Report: Study: AP weight-bearing [...] Primary Interpreting Staff: LIA JACINTO JR, Radiologist (Community Organization Aide) /LIA CARPENTER JR [facility] Encounter Notes: All associated encounter notes This section contains the clinical notes associated to the Encounter. Date/Time Encounter Note(s) Provider Source Jul 06, 2024 02:32 PM PHYSICAL THERAPY C ONSULT: LOCAL TITLE: PHYSICAL THERAPY CONSULT STANDARD TITLE: PHYSICAL THERAPY CONSULT DATE OF NOTE: JUL 06, 2024@14:32 ENTRY DATE: JUL 06, 2024@14:32:14 AUTHOR: CRYSTAL SHAFFER COSIGNER: URGENCY: STATUS: COMPLETED Initial Evaluation date: Jun Progress Note Date: Treatment #: 0 Treatment time: 15 mins Diagnosis: pain in left knee Provider: PT Treatment Precautions: Patient identified by full name and date of PROSTHETIC CHECKOUT-Physical Therapy Pt was measured and issued a knee wrap with hinges on this date, was educated in wear and care of it on this date, was provided with the phone number to the clinic should any questions arise (x) Pt is I and safe with use of equipment () Pt requires assistance: (x) Pt was educated to use, care, and safety of the equipment and demonstrated/verbalized understanding of same. (x) Pt was issued manual or written instructions. (x) Suggested pt call this therapist with any questions. (x) Goal of safe use of equipment met. No further services provided at this time. () Other: /es/ TAVON GOMEZ [employer]ATE COMMUNICATIONS SPECIALIST Signed: 07/06/2024 14:33 CRYSTAL SHAFFER [facility]
--- OUTSIDE RECORDS SUMMARY | 2024-08-31 21:14 | XMS_ITS ---
Author Name [facility] [place] [facility] [facility] [place] Address [address] [place] [address] Care Team Providers Care R And D Lab Technician Name Role Phone MARTIN BOWERS Primary Care Provider OPAL Mckay Primary Care Provider Unav ailable Selected Encounter This section includes the information on record at [place] for the Encounter. Date/Time Encounter Type Encounter Description Reason Pro vider Source Jul 06, 2024 02:49 PM Outpatient Encounter PRIMARY CARE/MEDICINE IHE Encounter Template Text not used by [place] Plan of Treatment: Future Appointments (+ 6 months) and Future Tests (+/- 45 days) The Plan of Treatment section includes future care activities for the patient from all [place] treatmentfacilities. This section includes future appointments and future orders which are active, pending or scheduled. Future Appointments This section includes appointments that were scheduled to occur 6 months from the date of the Encounter, up to a maximum of 20 appointments. The data comes from all [place] treatment facilities. Appointment Date/Time Appointment Type Appointme nt Facility Name Jul 13, 2024 02:30 PM AMBULATORY - MEDICINE [place] [facility] [place] [facility] Jul 14, 2024 10:30 AM AMBULATORY - MEDICINE [facility] [place] [facility] Jul 20, 2024 03:30 PM [facility]ULATORY [facility] MEDICINE [facility] [place] [facility] Jul 26, 2024 01:30 PM AMBULATORY - MEDICINE [facility] [place] [facility] Jul 28, 2024 10:30 AM AMBULATORY - PSYCHIATRY [facility] [place] [facility] Aug 10, 2024 10:00 AM AMBULATORY - MEDICINE [facility] [place] [facility] Aug 10, 2024 03:00 PM AMBULATORY - MEDICINE [facility] [place] [facility] Sep 20, 2024 03:00 PM AMBULATORY - MEDICINE [facility] [place] [facility] Nov 10, 2024 10:00 AM AMBULATORY - MEDICINE [place] [facility] [place] [facility] Active, Pending, and Scheduled Orders This section includes a listing of several types of active, pending, and scheduled orders, including clinic medications orders, diagnostic test orders, procedure orders and consult orders; where the start date of the order is 45 days before the date of the Encounter or 45 days after the date of theEncounter. The data comes from all [place] treatment facilities. Test Date/Time Test Type Test Details Facility Name Jun 09, 2024 01:58 PM Consult Order COMMUNITY CARE-GEN SURGERY Cons Automatic Coil Machine Operator's Choice [facility] [place] [facility] Jun 09, 2024 03:46 PM Consult Order PSYCHOTHER APY BHIP/[facility] OUTPT Cons Automatic Coil Machine Operator's Choice [facility] [place] [facility] Jul 14, 2024 10:55 AM Consult Order REHAB MEDI CINE/[facility] OUTPT Cons Automatic Coil Machine Operator's Choice [facility] [place] [facility] Jul 19, 2024 11:25 AM Consult Order COMMUNITY CARE-DENTAL GENERAL Cons Automatic Coil Machine Operator's Choice [facility] [place] [facility] Jul 22, 2024 08:51 AM Consult Order COMMUNITY CARE-DENTAL GENERAL Cons Automatic Coil Machine Operator's Choice [facility] [place] [facility] Jul 22, 2024 01:51 PM Consult Order COMMUNITY CARE-DENTAL GENERAL Cons Automatic Coil Machine Operator's Choice [facility] [place] [facility] Lab Results: +/- 30 days of [...] Range Comment Jul 06, 2024 02:09 PM [facility] LIPID PANEL FASTING Specimen Type: SERUM No comment entered. Ordering Provider: PERRY LONG MD Report Released Date/Time: Jun 17, 2024 02:14 PM Reporting Lab: [facility] [address] [facility] [address] Performing Lab: [facility] [address] [address] CHOLESTEROL 251 mg/dL H TRIGLYCERIDE 70 mg/dL 0-150 LDL calculated 171 mg/dL H 0-129 CHOL/HDL 3.8 HDL CHOLESTEROL 66 mg/dL H 40-60 Jul 06, 2024 02:09 PM [facility] CALCIUM Specimen Type: SERUM No comment entered. Ordering Provider: Brian REEVES Report Released Date/Time: Jul 01, 2024 03:56 PM Reporting Lab: [facility] [address] [facility] [address] Performing Lab: [address] [address] CALCIUM 9.8 mg/dL 8.5-10.2 Jul 06, 2024 02:09 PM [facility] HEMOGLOBIN A1C PANEL Specimen Type: BLOOD [...] Jul 01, 2024 03:56 PM Reporting Lab: [facility] [address] [facility] [address] Performing Lab: [address] [address] HEMOGLOBIN A1C 4.9 4.0-5.6 Jul 06, 2024 02:09 PM [facility] LIVER FUNCTION Specimen Type: SERUM No comment entered. Ordering Provider: Brian REEVES Report Released Date/Time: Jul 01, 2024 03:56 PM Reporting Lab: [address] [address] Performing Lab: [address] [address] PROTEIN,TOTAL 7.4 g/dL 6.0-8.3 ALBUMIN 4.4 g/dL 3.5-5.0 ALKALINE PHOSPHATASE 95 U/L 40-150 AST 21 U/L 5-34 ALT 34 U/L BILIRUBIN, TOTAL 0.4 mg/dL 0.2-1.2 Jul 06, 2024 02:09 PM [facility] BASIC METABOLIC PANEL (non-fasting) Specimen Type: SERUM No comment entered. Ordering Provider: Brian REEVES Report Released Date/Time: Jul 01, 2024 03:56 PM Reporting Lab: [address] [address] Performing Lab: [address] [address] UREA NITROGEN 19 mg/dL 7-25 GLUCOSE 90 mg/dL 65-100 SODIUM 139 mmol/L 135-145 POTASSIUM 4.8 mmol/L 3.5-5.0 CHLORIDE 104 mmol/L 100-110 CO2 26 meq/L 20-30 CREATININE, Serum 1.04 mg/dL 0.50-1.40 eGFR(CKD-EPI 2020) 87 mL/min >60 Jul 06, 2024 02:09 PM [facility] CBC AND DIFF (AUTO) Specimen Type: BLOOD No comment entered. Ordering Provider: Brian REEVES Report Released Date/Time: Jul 01, 2024 03:56 PM Reporting Lab: [address] [address] Performing Lab: [address] [place] [address] WBC 8.69 10*3/uL 4.50-11.00 RBC 5.01 10*6/uL [...] and tobacco- related health factors from the [place] facility where the Encounter took place. Current Smoking Status This section includes the most current smoking, or tobacco-related health factor, from the [place] facility where the Encounter took place. Date/Time Current Smoking Status Comment Facil ity Nov 19, 2023 10:00 AM VA-TOBACCO USE [place] 30 MIN [facility] Tobacco Use History This section includes a history of the smoking, or tobacco-related health factors, that were collected on or before the date of the Encounter. The data comes from the [place] facility where the Encounter took place. 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 [facility] [place] [facility] Nov 19, 2023 10:00 AM VA-TOBACCO USE MED NO [facility] [place] [facility] Nov 19, 2023 10:00 AM VA-TOBACCO USE WI 30 MIN OF WAKEUP [facility] [place] [facility] Nov 19, 2023 10:00 AM VA-TOBACCO USER EVERY DAY [facility] [place] [facility] February 10, 2023 01:00 PM ORYX ADMIT TOBACCO SCREEN YES [facility] [place] [facility] February 10, 2023 01:00 PM ORYX ADMIT TOBACCO USE CIGS GR 5D [facility] [place] [facility] February 10, 2023 01:00 PM ORYX DAILY TOBACCO AIR LIFT OPERATOR RECEIVED [facility] [place] [facility] February 10, 2023 01:00 PM ORYX DAILY TOBACCO MEDS ORDERED [facility] [place] [facility] Sep 02, 2022 08:00 AM VA-TOBACCO USE 30 YEARS OR MORE [facility] [place] [facility] Sep 02, 2022 08:00 AM VA-TOBACCO USE ADVICE [facility] [place] [facility] Sep 02, 2022 08:00 AM VA-TOBACCO USE AIR LIFT OPERATOR YES [facility] [place] [facility] Sep 02, 2022 08:00 AM VA-TOBACCO USE MED NOTIFY PROVIDER [facility] [place] [facility] Sep 02, 2022 08:00 AM VA-TOBACCO USE WI 30 MIN OF WAKEUP [facility] [place] [facility] Sep 02, 2022 08:00 AM VA-TOBACCO USER EVERY DAY [facility] [place] [facility] Oct 12, 2016 09:13 AM QUIT TOBACCO USE 1-7 YEARS AGO [facility] [place] [facility] Sep 25, 2015 10:24 AM QUIT TOBACCO USE 1-7 YEARS AGO [facility] [place] [facility] Oct 05, 2013 03:03 PM QUIT TOBACCO USE 1-7 YEARS AGO PT HAS QUIT LES THAN A YEAR AGO. [facility] Oct 05, 2013 03:03 PM QUIT TOBACCO USE IN PAST YEAR [facility] Advance Directives: All historical and current Section Date Range: From patient's date of to the date document was created. This section includes ALL of a patient's completed or amended [place] Advance and Rescinded Directives. The entries below indicate that a directive exists for the patient, but an actual copy is not included with this document. The data comes from all [place] facilities. Date Advance Directives Provider Source Mar 06, 2023 ADVANCE DIRECTIVE BEV PETTIT [facility] Mar 06, 2023 ADVANCE DIRECTIVE DISCUSSION BEV PETTIT [facility] Apr 20, 2020 ADVANCE DIRECTIVE DISCUSSION ERUM MARTÍNEZ [facility] Feb 24, 2020 ADVANCE DIRECTIVE DISCUSSION POOL [facility] Oct 30, 2016 ADVANCE DIRECTIVE KULDEEP FAM [facility] Radiology Reports: +/- 30 days of [...] the Encounter. The data comes from all [place] treatment facilities. Date/Time Radiology Report Provider Source Jul 14, 2024 11:13 AM KNEE 3 VIEWS (LEFT ): JEYSON SANCHEZ TIERA [id number] -[id number] M Exm Date: JUL 14, 2024@11:13 Req Phys: OPAL REEVES Loc: CWM/NO/PACT 4 (Req'g Loc) Img Loc: [facility] 1 Service: Unknown [facility] [place] [address] (Case [id number] COMPLETE) KNEE 3 VIEWS (LEFT) (RAD Detailed) CPT:19758 Reason for Study: 5 yrs of left knee pain Clinical History: Report Status: Verified Date Reported: JUL 14, 2024 Date Verified: JUL 14, 2024 Tanker Driver E-Sig:/ES/LIA JACINTO JR Report: Study: AP weight-bearing [...] Primary Interpreting Staff: LIA JACINTO JR, Radiologist (Tanker Driver) /LIA CARPENTER JR [facility] Encounter Notes: All associated encounter notes This section contains the clinical notes associated to the Encounter. Date/Time Encounter Note(s) Provider Source Jul 06, 2024 02:49 PM PRIMARY CARE NOTE: LOCAL TITLE: WALK-IN NOTE PRIMARY CARE (T) STANDARD TITLE: PRIMARY CARE NOTE DATE OF NOTE: JUL 06, 2024@14:49 ENTRY DATE: JUL 06, 2024@14:49:54 AUTHOR: JAYLA MITTAL EXP COSIGNER: URGENCY: STATUS: COMPLETED WALK-IN NOTE PRIMARY CARE (T) Has ADDENDA <====Click to Start Advanced Medical Support [place] presents to the Primary Care clinic with the following request: [ ]Medication Renewal/Refill [ ]Consultation with Team RN [ ]Symptoms [ X ]Other - [place] send Secure message regarding getting something stronger than acetaminophen - see cprs from 07/01/24 secure message. [place] had not heard anything and asking for return call. Binding Folder Machine confirmed phone number in system. Please review and advise. The [place] states they are: [ ]Waiting [ X ]Not Waiting No Walk in visit scheduled with PACT Nurse [ X ] At this encounter the [place]'s demographics were verified. [ X ] At this encounter the 's Insurance information was verified. [ X ] At this encounter the below scheduled visits for the were discussed and appointment reminder card was offered. Future appointments: 07/28/2024 10:30 CWM/NO/MHC/ETHAN 08/10/2024 10:00 CWM/NO/PODIATRY A 08/24/2024 09:30 [facility] DENTAL DMD 2 09/20/2024 15:00 CWM/NO/PACT 4 /es/ JAYLA ROBERTSON Signed: 07/06/2024 14:51 Receipt Acknowledged By: 07/06/2024 15:08 /es/ JACKIE LAWTON, MSN, RN, CNL PRIMARY CARE TEAM NURSE 07/06/2024 15:04 /brown/ Clarita Donahue RN Primary Care Staff Nurse 07/06/2024 ADDENDUM STATUS: COMPLETED See telephone note /brown/ Clarita Donahue RN Primary Care Staff Nurse Signed: 07/06/2024 15:05 JAYLA MITTAL [facility]
--- OUTSIDE RECORDS SUMMARY | 2024-08-31 21:14 | XMS_ITS ---
Author Name Department of Vetera ns Affairs ([place]) Organization Department of Vetera Affairs [place]) Address [address] [place] [address] Care Team Providers Care Over The Horizon Targeting Supervisor Name Role Phone MARTIN BOWERS Primary Care Provider OPAL Mckay Primary Care Provider Unajerome ailable Selected Encounter This section includes the information on record at ME for the Encounter. Date/Time Encounter Type Encounter Description Reason Provider Source Jul 06, 2024 03:05 PM HC PRO PHONE CALL 5-10 MIN TELEPHONE PRIMARY CARE ICD-10-CM Z71.89 Other specified counseling CLARITA VALENCIA Azael Encounter Template Text not used by ME Assessments - Encounter Diagnoses This section includes the primary and secondary diagnoses documented for the Encounter. Date/Time Primary/Secondary Diagnosis Diagnosis Name Provider Source Jul 06, 2024 03:05 PM PRIMARY Other specified counseling CLARITA VALENCIA [facility] Plan of Treatment: Future Appointments (+ 6 months) and Future Tests (+/- 45 days) The Plan of Treatment section includes future care activities for the patient from all ME treatmentfacilities. This section includes future appointments and future orders which are active, pending or scheduled. Future Appointments This section includes appointments that were scheduled to occur 6 months from the date of the Encounter, up to a maximum of 20 appointments. The data comes from all ME treatment facilities. Appointment Date/Time Appointment Type Appointme nt Facility Name Jul 13, 2024 02:30 PM AMBULATORY - MEDICINE [facility] [place] [facility] Jul 14, 2024 10:30 AM AMBULATORY - MEDICINE [facility] [place] [facility] Jul 20, 2024 03:30 PM AMBULATORY - MEDICINE [facility] [place] [facility] Jul 26, 2024 01:30 PM AMBULATORY - MEDICINE [facility] [place] [facility] Jul 28, 2024 10:30 AM AMBULATORY - PSYCHIATRY [facility] [place] [facility] Aug 10, 2024 10:00 AM AMBULATORY - MEDICINE [facility] [place] [facility] Aug 10, 2024 03:00 PM AMBULATORY - MEDICINE [facility] [place] [facility] Sep 20, 2024 03:00 PM AMBULATORY - MEDICINE [facility] [place] [facility] Nov 10, 2024 10:00 AM AMBULATORY - MEDICINE ME [facility] [place] [facility] Active, Pending, and Scheduled Orders This section includes a listing of several types of active, pending, and scheduled orders, including clinic medications orders, diagnostic test orders, procedure orders and consult orders; where the start date of the order is 45 days before the date of the Encounter or 45 days after the date of theEncounter. The data comes from all [facility]. Test Date/Time Test Type Test Details Facility Name Jun 09, 2024 01:58 PM Consult Order COMMUNITY CARE-GEN SURGERY Cons Icu Specialist's Choice [facility] [place] [facility] Jun 09, 2024 03:46 PM Consult Order PSYCHOTHER APY BHIP/NHM OUTPT Cons Icu Specialist's Choice [facility] [place] [facility] Jul 14, 2024 10:55 AM Consult Order REHAB MEDI CINE/NHM OUTPT Cons Icu Specialist's Choice [facility] [place] [facility] Jul 19, 2024 11:25 AM Consult Order COMMUNITY CARE-DENTAL GENERAL Cons Icu Specialist's Choice [facility] [place] [facility] Jul 22, 2024 08:51 AM Consult Order COMMUNITY CARE-DENTAL GENERAL Cons Icu Specialist's Choice [facility] [place] [facility] Jul 22, 2024 01:51 PM Consult Order COMMUNITY [facility]-DENTAL GENERAL Cons Icu Specialist's Choice [facility] Lab Results: +/- 30 days of the encounter This section includes the Chemistry and Hematology Lab Results on record with ME for the patient. Radiology Reports and Pathology Reports are provided separately, in subsequent sections. Lab Results This section contains the Chemistry/Hematology Results that were resulted 30 days before or 30 daysafter the date of the Encounter. Date/Time Source Result Type Result - Unit Interpretation Reference Range Comment Jul 06, 2024 02:09 PM [facility] LIPID PANEL FASTING Specimen Type: SERUM No comment entered. Ordering Provider: PERRY LONG MD Report Released Date/Time: Jun 17, 2024 02:14 PM Reporting Lab: [address] [address] Performing Lab: [address] [address] CHOLESTEROL 251 mg/dL H TRIGLYCERIDE 70 mg/dL 0-150 LDL calculated 171 mg/dL H 0-129 CHOL/HDL 3.8 HDL CHOLESTEROL 66 mg/dL H 40-60 Jul 06, 2024 02:09 PM [facility] HEMOGLOBIN A1C PANEL Specimen Type: BLOOD [...] Jul 01, 2024 03:56 PM Reporting Lab: [address] [address] Performing Lab: [address] [address] HEMOGLOBIN A1C 4.9 4.0-5.6 Jul 06, 2024 02:09 PM [facility] CALCIUM Specimen Type: SERUM No comment entered. Ordering Provider: Brian REEVES Report Released Date/Time: Jul 01, 2024 03:56 PM Reporting Lab: [facility] [address] [address] Performing Lab: [address] [address] CALCIUM 9.8 mg/dL 8.5-10.2 Jul 06, 2024 02:09 PM [facility] LIVER FUNCTION Specimen Type: SERUM No comment entered. Ordering Provider: Brian REEVES Report Released Date/Time: Jul 01, 2024 03:56 PM Reporting Lab: [address] [address] Performing Lab: [address] [address] PROTEIN,TOTAL 7.4 g/dL 6.0-8.3 ALBUMIN 4.4 g/dL 3.5-5.0 ALKALINE PHOSPHATASE 95 U/L 40-150 AST 21 U/L 5-34 ALT 34 U/L BILIRUBIN, TOTAL 0.4 mg/dL 0.2-1.2 Jul 06, 2024 02:09 PM [facility] BASIC METABOLIC PANEL (non-fasting) Specimen Type: SERUM No comment entered. Ordering Provider: Brian REEVES Report Released Date/Time: Jul 01, 2024 03:56 PM Reporting Lab: [address] [address] Performing Lab: [address] [address] UREA NITROGEN 19 mg/dL 7-25 GLUCOSE 90 mg/dL 65-100 SODIUM 139 mmol/L 135-145 POTASSIUM 4.8 mmol/L 3.5-5.0 CHLORIDE 104 mmol/L 100-110 CO2 26 meq/L 20-30 CREATININE, Serum 1.04 mg/dL 0.50-1.40 eGFR(CKD-EPI 2020) 87 mL/min >60 Jul 06, 2024 02:09 PM [facility] CBC AND DIFF (AUTO) Specimen Type: BLOOD No comment entered. Ordering Provider: Brian REEVES Report Released Date/Time: Jul 01, 2024 03:56 PM Reporting Lab: [facility] [address] [address] Performing Lab: [facility] [address] [address] WBC 8.69 10*3/uL 4.50-11.00 RBC 5.01 10*6/uL [...] and tobacco- related health factors from the ME facility where the Encounter took place. Current Smoking Status This section includes the most current smoking, or tobacco-related health factor, from the ME facility where the Encounter took place. Date/Time Current Smoking Status Comment Gino hernadez Nov 19, 2023 10:00 AM VA-TOBACCO USER EVERY DAY [facility] Tobacco Use History This section includes a history of the smoking, or tobacco-related health factors, that were collected on or before the date of the Encounter. The data comes from the ME facility where the Encounter took place. Date/Time Smoking Status/Tobac co Use Comment Facility Nov 19, 2023 10:00 AM VA-TOBACCO USE ADVICE [facility] [place] [facility] Nov 19, 2023 10:00 AM VA-TOBACCO USE NANNY CAREGIVER NO ME [facility] [place] [facility] Nov 19, 2023 10:00 AM VA-TOBACCO USE MED NO ME [facility] [place] [facility] Nov 19, 2023 10:00 AM VA-TOBACCO USE WI 30 MIN OF WAKEUP ME [facility] [place] [facility] Nov 19, 2023 10:00 AM VA-TOBACCO USER EVERY DAY [facility] [place] [facility] February 10, 2023 01:00 PM ORYX ADMIT TOBACCO SCREEN YES ME [facility] [place] [facility] February 10, 2023 01:00 PM ORYX ADMIT TOBACCO USE CIGS GR 5D ME [facility]TR [facility] [place] [facility] February 10, 2023 01:00 PM ORYX DAILY TOBACCO NANNY CAREGIVER [facility] [place] [facility] February 10, 2023 01:00 PM ORYX DAILY TOBACCO MEDS ORDERED ME [facility]TR [facility] [place] [facility] Sep 02, 2022 08:00 AM VA-TOBACCO USE 30 YEARS OR MORE ME [facility] [place] [facility] Sep 02, 2022 08:00 AM VA-TOBACCO USE ADVICE [facility] [place] [facility] Sep 02, 2022 08:00 AM VA-TOBACCO USE NANNY CAREGIVER YES [facility] [place] [facility] Sep 02, 2022 08:00 AM VA-TOBACCO USE MED NOTIFY [facility] [place] [facility] Sep 02, 2022 08:00 AM VA-TOBACCO USE WI 30 MIN OF WAKEUP [facility] [place] [facility] Sep 02, 2022 08:00 AM VA-TOBACCO USER EVERY DAY [facility] Oct 12, 2016 09:13 AM QUIT TOBACCO USE 1-7 YEARS AGO [facility] Sep 25, 2015 10:24 AM QUIT TOBACCO USE 1-7 YEARS AGO [facility] Oct 05, 2013 03:03 PM QUIT TOBACCO USE 1-7 YEARS AGO PT HAS QUIT LES THAN A YEAR AGO. [facility] Oct 05, 2013 03:03 PM QUIT TOBACCO USE IN PAST YEAR [facility] Advance Directives: All historical and current Section Date Range: From patient's date of to the date document was created. This section includes ALL of a patient's completed or amended ME Advance and Rescinded Directives. The entries below indicate that a directive exists for the patient, but an actual copy is not included with this document. The data comes from all [place] facilities. Date Advance Directives Provider Source Mar 06, 2023 ADVANCE DIRECTIVE BEV PETTIT [facility] Mar 06, 2023 ADVANCE DIRECTIVE DISCUSSION BEV PETTIT [facility] Apr 20, 2020 ADVANCE DIRECTIVE DISCUSSION ERUM MARTÍNEZ [facility] Feb 24, 2020 ADVANCE DIRECTIVE DISCUSSION POOL FUENTES [facility] Oct 30, 2016 ADVANCE DIRECTIVE KULDEEP FAM [facility] Radiology Reports: +/- 30 days of [...] the Encounter. The data comes from all [place] treatment facilities. Date/Time Radiology Report Provider Source Jul 14, 2024 11:13 AM KNEE 3 VIEWS (LEFT ): JEYSON SANCHEZ [id number] -1975 M Exm Date: JUL 14, 2024@11:13 Req Phys: OPAL REEVES Loc: CWM/NO/PACT 4 (Req'g Loc) Img Loc: [facility] 1 Service: Unknown [place] [address] (Case [id number] COMPLETE) KNEE 3 VIEWS (LEFT) (RAD Detailed) CPT:15132 Reason for Study: 5 yrs of left knee pain Clinical History: Report Status: Verified Date Reported: JUL 14, 2024 Date Verified: JUL 14, 2024 Laundry Route Driver E-Sig:/ES/LIA JACINTO JR Report: Study: AP [...] Primary Interpreting Staff: LIA JACINTO JR, Radiologist (Laundry Route Driver) /LIA CARPENTER JR [facility] Encounter Notes: All associated encounter notes This section contains the clinical notes associated to the Encounter. Date/Time Encounter Note(s) Provider Source Jul 06, 2024 03:05 PM NURSING NOTE: LOCAL TITLE: NURSING/TELEPHONE STANDARD TITLE: NURSING NOTE DATE OF NOTE: JUL 06, 2024@15:05 ENTRY DATE: JUL 06, 2024@15:05:33 AUTHOR: CLARITA VALENCIA COSIGNER: URGENCY: STATUS: COMPLETED RC to Vet at listed number- this is in re: to alert today re: pain control. Hypertrichologist went over what PCP reccomended for pain management as indicated in PCP addenum on SM: 07/01/2024 ADDENDUM STATUS: COMPLETED vet has not had labs in more than one year. needs updated labs to insure safety of following plan for pain control. 1. labs this week in [place] 2. vet can use BOTH indocin 50 mg bid AND tylenol 1000 mg tid for pain contro 3. vet will have f/u w/ PCP in august. when is hernia surgery? Vet did labs today and has not received medication in the mail yet. It should arrive in next day or so. Hypertrichologist also sent email to [facility] re: general Surgery consult and asked if they could please reach out to Vet directly re: status of consult and appt. Vet appreciative of information/update. /brown/ Clarita Valencia RN Primary Care Staff Nurse Signed: 07/06/2024 15:28 CLARITA VALENCIA [facility] [place] [facility]
--- OUTSIDE RECORDS SUMMARY | 2024-08-31 21:16 | XMS_ITS | Encounter Summary ---
Author Name Department of Vetera Affairs ([place]) Organization [place] Address [address] [place] [address] Care Team Providers Care Soakers Supervisor Name Role Phone MARTIN BOWERS Primary Care Provider OPLA Mckay Primary Care Provider Unav ailable Selected Encounter This section includes the information on record at [place] for the Encounter. Date/Time Encounter Type Encounter Description Reason Pro vider Source Jul 14, 2024 12:00 AM Outpatient Encounter EVENT (HISTORICAL) IHE Encounter Template Text not used by VA Plan of Treatment: Future Appointments (+ 6 months) and Future Tests (+/- 45 days) The Plan of Treatment section includes future care activities for the patient from all [place] treatmentfacilities. This section includes future appointments and future orders which are active, pending or scheduled. Future Appointments This section includes appointments that were scheduled to occur 6 months from the date of the Encounter, up to a maximum of 20 appointments. The data comes from all [place] treatment facilities. Appointment Date/Time Appointment Type Appointme nt Facility Name Jul 20, 2024 03:30 PM AMBULATORY - MEDICINE [place] [facility] [place] [facility] Jul 26, 2024 01:30 PM AMBULATORY - MEDICINE IN C [facility] [place] [facility] Jul 28, 2024 10:30 AM AMBULATORY - PSYCHIATRY [facility] [place] [facility] Aug 10, 2024 10:00 AM AMBULATORY - MEDICINE IN C [facility] [place] [facility] Aug 10, 2024 03:00 PM AMBULATORY - MEDICINE VA [facility] [place] [facility] Sep 20, 2024 03:00 PM AMBULATORY - MEDICINE VA [facility] [place] [facility] Nov 10, 2024 10:00 AM AMBULATORY - MEDICINE IN C [facility] [place] [facility] Active, Pending, and Scheduled Orders This section includes a listing of several types of active, pending, and scheduled orders, including clinic medications orders, diagnostic test orders, procedure orders and consult orders; where the start date of the order is 45 days before the date of the Encounter or 45 days after the date of theEncounter. The data comes from all [place] treatment facilities. Test Date/Time Test Type Test Details Facility Name Jun 09, 2024 01:58 PM Consult Order COMMUNITY CARE-GEN SURGERY Cons Roof Tiler's Choice [facility] [place] [facility] Jun 09, 2024 03:46 PM Consult Order PSYCHOTHER APY BHIP/NHM OUTPT Cons Roof Tiler's Choice [facility] [place] [facility] Jul 14, 2024 10:55 AM Consult Order REHAB MEDI CINE/NHM OUTPT Cons Roof Tiler's Choice [facility] [place] [facility] Jul 19, 2024 11:25 AM Consult Order COMMUNITY CARE-DENTAL GENERAL Cons Roof Tiler's Choice [facility] [place] [facility] Jul 22, 2024 08:51 AM Consult Order COMMUNITY CARE-DENTAL GENERAL Cons Roof Tiler's Choice [facility] [place] [facility] Jul 22, 2024 01:51 PM Consult Order COMMUNITY CARE-DENTAL GENERAL Cons Roof Tiler's Choice [facility] [place] [facility] Lab Results: +/- 30 days [...] Range Comment Jul 06, 2024 02:09 PM IN [facility] [place] [facility] LIPID PANEL FASTING Specimen Type: SERUM No comment entered. Ordering Provider: PERRY LONG MD Report Released Date/Time: Jun 17, 2024 02:14 PM Reporting Lab: [facility] [address] [address] Performing Lab: [address] [address] CHOLESTEROL 251 mg/dL H TRIGLYCERIDE 70 mg/dL 0-150 LDL calculated 171 mg/dL H 0-129 CHOL/HDL 3.8 HDL CHOLESTEROL 66 mg/dL H 40-60 Jul 06, 2024 02:09 PM [facility] HEMOGLOBIN A1C PANEL Specimen Type: BLOOD [...] Jul 01, 2024 03:56 PM Reporting Lab: [address] [address] Performing Lab: [address] [address] HEMOGLOBIN A1C 4.9 4.0-5.6 Jul 06, 2024 02:09 PM [facility] CALCIUM Specimen Type: SERUM No comment entered. Ordering Provider: Brian REEVES Report Released Date/Time: Jul 01, 2024 03:56 PM Reporting Lab: [address] [address] [facility]forming [facility]: [facility] [address] CALCIUM 9.8 mg/dL 8.5-10.2 Jul 06, 2024 02:09 PM [facility] LIVER FUNCTION Specimen Type: SERUM No comment entered. Ordering Provider: Brian REEVES Report Released Date/Time: Jul 01, 2024 03:56 PM Reporting Lab: [address] [address] Performing Lab: [address] [address] PROTEIN,TOTAL 7.4 g/dL 6.0-8.3 ALBUMIN 4.4 g/dL 3.5-5.0 ALKALINE PHOSPHATASE 95 U/L 40-150 AST 21 U/L 5-34 ALT 34 U/L BILIRUBIN, TOTAL 0.4 mg/dL 0.2-1.2 Jul 06, 2024 02:09 PM [facility] BASIC METABOLIC PANEL (non-fasting) Specimen Type: SERUM No comment entered. Ordering Provider: Brian REEVES Report Released Date/Time: Jul 01, 2024 03:56 PM Reporting Lab: [address] [address] Performing Lab: [address] [address] UREA NITROGEN 19 mg/dL 7-25 GLUCOSE 90 mg/dL 65-100 SODIUM 139 mmol/L 135-145 POTASSIUM 4.8 mmol/L 3.5-5.0 CHLORIDE 104 mmol/L 100-110 CO2 26 meq/L 20-30 CREATININE, Serum 1.04 mg/dL 0.50-1.40 eGFR(CKD-EPI 2020) 87 mL/min >60 Jul 06, 2024 02:09 PM [facility] CBC AND DIFF (AUTO) Specimen Type: BLOOD No comment entered. Ordering Provider: Brian REEVES Report Released Date/Time: Jul 01, 2024 03:56 PM Reporting Lab: [address] [address] Performing Lab: [address] [address] WBC 8.69 10*3/uL 4.50-11.00 RBC 5.01 10*6/uL [...] Pain Height Weight Body Mass Index Source Jul 14, 2024 10:41 AM 98 90 145/84 19 97 [facility] Social History: Smoking Status (Most current) and Tobacco Use (All prior to encounter date) This section includes the most current, and the historical, smoking and tobacco- related health factors from the [place] facility where the Encounter took place. Current Smoking Status This section includes the most current smoking, or tobacco-related health factor, from the [place] facility where the Encounter took place. Date/Time Current Smoking Status Comment Facil margie Nov 19, 2023 10:00 AM VA-TOBACCO USER EVERY DAY [facility] Tobacco Use History This section includes a history of the smoking, or tobacco-related health factors, that were collected on or before the date of the Encounter. The data comes from the [place] facility where the Encounter took place. Date/Time Smoking Status/Tobac co Use Comment Facility Nov 19, 2023 10:00 AM VA-TOBACCO USE ADVICE IN [facility] [place] [facility] Nov 19, 2023 10:00 AM VA-TOBACCO USE RANGE MANAGEMENT SPECIALIST NO IN [facility] [place] [facility] Nov 19, 2023 10:00 AM VA-TOBACCO USE MED NO IN [facility] [place] [facility] Nov 19, 2023 10:00 AM VA-TOBACCO USE WI 30 MIN OF WAKEUP IN [facility] [place] [facility] Nov 19, 2023 10:00 AM VA-TOBACCO USER EVERY DAY IN [facility] [place] [facility] February 10, 2023 01:00 PM ORYX ADMIT TOBACCO SCREEN YES IN [facility] [place] [facility] February 10, 2023 01:00 PM ORYX ADMIT TOBACCO USE CIGS GR 5D IN [facility] [place] [facility] February 10, 2023 01:00 PM ORYX DAILY TOBACCO RANGE MANAGEMENT SPECIALIST RECEIVED IN [facility] [place] [facility] February 10, 2023 01:00 PM ORYX DAILY TOBACCO MEDS ORDERED IN [facility] [place] [facility] Sep 02, 2022 08:00 AM VA-TOBACCO USE 30 YEARS OR MORE IN [facility] [place] [facility] Sep 02, 2022 08:00 AM VA-TOBACCO USE ADVICE IN [facility] [place] [facility] Sep 02, 2022 08:00 AM VA-TOBACCO USE RANGE MANAGEMENT SPECIALIST YES IN [facility] [place] [facility] Sep 02, 2022 08:00 AM VA-TOBACCO USE MED NOTIFY PROVIDER IN [facility] [place] [facility] Sep 02, 2022 08:00 AM VA-TOBACCO USE WI 30 MIN OF WAKEUP IN [facility] [place] [facility] Sep 02, 2022 08:00 AM VA-TOBACCO USER EVERY DAY IN [facility] [place] [facility] Oct 12, 2016 09:13 AM QUIT TOBACCO USE 1-7 YEARS AGO IN [facility]TRL [facility] [place] [facility] Sep 25, 2015 10:24 AM QUIT TOBACCO USE 1-7 YEARS AGO [facility] Oct 05, 2013 03:03 PM QUIT TOBACCO USE 1-7 YEARS AGO PT HAS QUIT LES THAN A YEAR AGO. [facility] Oct 05, 2013 03:03 PM QUIT TOBACCO USE IN PAST YEAR [facility] Advance Directives: All historical and current Section Date Range: From patient's date of to the date document was created. This section includes ALL of a patient's completed or amended [place] Advance and Rescinded Directives. The entries below indicate that a directive exists for the patient, but an actual copy is not included with this document. The data comes from all [place] facilities. Date Advance Directives Provider Source Mar 06, 2023 ADVANCE DIRECTIVE BEV PETTIT [facility] Mar 06, 2023 ADVANCE DIRECTIVE DISCUSSION BEV PETTIT [facility] Apr 20, 2020 ADVANCE DIRECTIVE DISCUSSION ERUM MARTÍNEZ [facility] Feb 24, 2020 ADVANCE DIRECTIVE DISCUSSION POOL FUENTES [facility] Oct 30, 2016 ADVANCE DIRECTIVE KULDEEP FAM [facility] Radiology Reports: +/- 30 days of [...] the Encounter. The data comes from all [place] treatment facilities. Date/Time Radiology Report Provider Source Jul 14, 2024 11:13 AM KNEE 3 VIEWS (LEFT ): JEYSNO SANCHEZ [id number] -1975 M Exm Date: JUL 14, 2024@11:13 Req Phys: OPAL REEVES Loc: CWM/NO/PACT 4 (Req'g Loc) Im Loc: [facility] 1 Service: [facility] [place] [address] (Case 198 COMPLETE) KNEE 3 VIEWS (LEFT) (RAD Detailed) CPT:32656 Reason for Study: 5 yrs of left knee pain Clinical History: Report Status: Verified Date Reported: JUL 14, 2024 Date Verified: JUL 14, 2024 Tumbling Instructor E-Sig:/ES/LIA JACINTO JR Report: Study: AP weight-bearing [...] Primary Interpreting Staff: LIA JACINTO JR, Radiologist (Tumbling Instructor) /LIA CARPENTER JR IN [facility]
--- OUTSIDE RECORDS SUMMARY | 2024-08-31 21:17 | XMS_ITS ---
Author Name [facility] [place] Organization [facility] [place] Address [address] [place] [address] Care Team Providers Care Veneer Grader Name Role Phone MARTIN BOWERS Primary Care Provider OPAL Mckay Primary Care Provider Unav ailable Selected Encounter This section includes the information on record at [place] for the Encounter. Date/Time Encounter Type Encounter Description Reason Pro vider Source Jul 27, 2024 04:01 PM Outpatient Encounter ADMIN PAT ACTIVTIES (MASNONCT) IHE Encounter Template Text not used by [place] Plan of Treatment: Future Appointments (+ 6 months) and Future Tests (+/- 45 days) The Plan of Treatment section includes future care activities for the patient from all [place] treatmentfacilities. This section includes future appointments and future orders which are active, pending or scheduled. Future Appointments This section includes appointments that were scheduled to occur 6 months from the date of the Encounter, up to a maximum of 20 appointments. The data comes from all [place] treatment facilities. Appointment Date/Time Appointment Type Appointme nt Facility Name Jul 28, 2024 10:30 AM [facility] Aug 10, 2024 10:00 AM [facility] Aug 10, 2024 03:00 PM AMBULATORY - MEDICINE [place] [facility] [place] [facility] Sep 20, 2024 03:00 PM AMBULATORY - MEDICINE [place] [facility] [place] [facility] Nov 10, 2024 10:00 AM [facility]ULATORY - [facility]ICINE [facility] Active, Pending, and Scheduled Orders This section includes a listing of several types of active, pending, and scheduled orders, including clinic medications orders, diagnostic test orders, procedure orders and consult orders; where the start date of the order is 45 days before the date of the Encounter or 45 days after the date of theEncounter. The data comes from all [place] treatment facilities. Test Date/Time Test Type Test Details Facility Name Jul 14, 2024 10:55 AM Consult Order REHAB MEDI CINE/NHM OUTPT Cons Dust Box Tender's Choice [place] [facility] Jul 19, 2024 11:25 AM Consult Order COMMUNITY CARE-DENTAL GENERAL Cons Dust Box [facility]'s [facility] Jul 22, 2024 08:51 AM Consult Order COMMUNITY CARE-DENTAL GENERAL Cons Dust Box Tender's Choice [place] [facility] Jul 22, 2024 01:51 PM Consult Order COMMUNITY CARE-DENTAL GENERAL Cons Dust Box Tender's Choice [facility] Lab Results: +/- 30 days of the encounter This section includes the Chemistry and Hematology Lab Results on record with [place] for the patient. Radiology Reports and Pathology Reports are provided separately, in subsequent sections. Lab Results This section contains the Chemistry/Hematology Results that were resulted 30 days before or 30 daysafter the date of the Encounter. Date/Time Source Result Type Result - Unit Interpretation Reference Range Comment Jul 06, 2024 02:09 PM [facility] LIPID PANEL FASTING Specimen Type: SERUM No comment entered. Ordering Provider: PERRY LONG MD Report Released Date/Time: Jun 17, 2024 02:14 PM Reporting Lab: [facility] [address] [address] Performing Lab: [address] [address] CHOLESTEROL 251 mg/dL H TRIGLYCERIDE 70 mg/dL 0-150 LDL calculated 171 mg/dL H 0-129 CHOL/HDL 3.8 HDL CHOLESTEROL 66 mg/dL H 40-60 Jul 06, 2024 02:09 PM [facility] HEMOGLOBIN A1C PANEL Specimen Type: BLOOD [...] Jul 01, 2024 03:56 PM Reporting Lab: [address] [address] Performing Lab: [address] [address] HEMOGLOBIN A1C 4.9 4.0-5.6 Jul 06, 2024 02:09 PM [facility] CALCIUM Specimen Type: SERUM No comment entered. Ordering Provider: Brian REEVES Report Released Date/Time: Jul 01, 2024 03:56 PM Reporting Lab: [facility] [address] [address] Performing Lab: [address] [address] CALCIUM 9.8 mg/dL 8.5-10.2 Jul 06, 2024 02:09 PM [facility] LIVER FUNCTION Specimen Type: SERUM No comment entered. Ordering Provider: Brian REEVES Report Released Date/Time: Jul 01, 2024 03:56 PM Reporting Lab: [address] [address] Performing Lab: [address] [address] PROTEIN,TOTAL 7.4 g/dL 6.0-8.3 ALBUMIN 4.4 g/dL 3.5-5.0 ALKALINE PHOSPHATASE 95 U/L 40-150 AST 21 U/L 5-34 ALT 34 U/L BILIRUBIN, TOTAL 0.4 mg/dL 0.2-1.2 Jul 06, 2024 02:09 PM [facility] BASIC METABOLIC PANEL (non-fasting) Specimen Type: SERUM No comment entered. Ordering Provider: Brian REEVES Report Released Date/Time: Jul 01, 2024 03:56 PM Reporting Lab: [facility] [address] [address] Performing Lab: [address] [address] UREA NITROGEN 19 mg/dL 7-25 GLUCOSE 90 mg/dL 65-100 SODIUM 139 mmol/L 135-145 POTASSIUM 4.8 mmol/L 3.5-5.0 CHLORIDE 104 mmol/L 100-110 CO2 26 meq/L 20-30 CREATININE, Serum 1.04 mg/dL 0.50-1.40 eGFR(CKD-EPI 2020) 87 mL/min >60 Jul 06, 2024 02:09 PM [facility] CBC AND DIFF (AUTO) Specimen Type: BLOOD No comment entered. Ordering Provider: Brian REEVES Report Released Date/Time: Jul 01, 2024 03:56 PM Reporting Lab: [facility] [address] [address] Performing Lab: [address] [address] WBC 8.69 10*3/uL 4.50-11.00 RBC 5.01 10*6/uL [...] and tobacco- related health factors from the [place] facility where the Encounter took place. Current Smoking Status This section includes the most current smoking, or tobacco-related health factor, from the [place] facility where the Encounter took place. Date/Time Current Smoking Status Comment [facility] Nov 19, 2023 10:00 AM VA-TOBACCO USER EVERY DAY [place] [facility] [place] [facility] Tobacco Use History This section includes a history of the smoking, or tobacco-related health factors, that were collected on or before the date of the Encounter. The data comes from the [place] facility where the Encounter took place. Date/Time Smoking Status/Tobac co Use Comment Facility Nov 19, 2023 10:00 AM VA-TOBACCO USE ADVICE [place] [facility] [place] [facility] Nov 19, 2023 10:00 AM VA-TOBACCO USE DOUGHNUT ICER NO [place] [facility] [place] [facility] Nov 19, 2023 10:00 AM VA-TOBACCO USE MED NO [place] [facility] [place] [facility] Nov 19, 2023 10:00 AM VA-TOBACCO USE WI 30 MIN OF WAKEUP [place] [facility] [place] [facility] Nov 19, 2023 10:00 AM VA-TOBACCO USER EVERY DAY [place] [facility] [place] [facility] February 10, 2023 01:00 PM ORYX ADMIT TOBACCO SCREEN YES [facility] [place] [facility] February 10, 2023 01:00 PM ORYX ADMIT TOBACCO USE CIGS GR 5D [facility] [place] [facility] February 10, 2023 01:00 PM ORYX DAILY TOBACCO DOUGHNUT ICER RECEIVED [facility] February 10, 2023 01:00 PM ORYX DAILY TOBACCO MEDS [facility] Sep 02, 2022 08:00 AM VA-TOBACCO USE 30 YEARS OR MORE [facility] Sep 02, 2022 08:00 AM VA-TOBACCO USE ADVICE [facility] Sep 02, 2022 08:00 AM VA-TOBACCO USE DOUGHNUT ICER YES [facility] Sep 02, 2022 08:00 AM VA-TOBACCO USE MED NOTIFY PROVIDER [facility] Sep 02, 2022 08:00 AM VA-TOBACCO USE WI 30 MIN OF WAKEUP [facility] Sep 02, 2022 08:00 AM VA-TOBACCO USER EVERY DAY [facility] Oct 12, 2016 09:13 AM QUIT TOBACCO USE 1-7 YEARS AGO [facility] [place] [facility] Sep 25, 2015 10:24 AM QUIT TOBACCO USE 1-7 YEARS AGO [facility] Oct 05, 2013 03:03 PM QUIT TOBACCO USE 1-7 YEARS AGO PT HAS QUIT LES THAN A YEAR AGO. [facility] [place] [facility] Oct 05, 2013 03:03 PM QUIT [facility]BACCO [facility] Advance Directives: All historical and current Section Date Range: From patient's date of to the date document was created. This section includes ALL of a patient's completed or amended [place] Advance and Rescinded Directives. The entries below indicate that a directive exists for the patient, but an actual copy is not included with this document. The data comes from all [place] facilities. Date Advance Directives Provider Source Mar 06, 2023 ADVANCE DIRECTIVE BEV PETTIT [facility] Mar 06, 2023 ADVANCE DIRECTIVE DISCUSSION BEV PETTIT Estephanie [facility] Apr 20, 2020 ADVANCE DIRECTIVE DISCUSSION [facility] Feb 24, 2020 ADVANCE DIRECTIVE DISCUSSION POOL FUENTES GUERITA [facility] Oct 30, 2016 ADVANCE DIRECTIVE KULDEEP FAM [facility] Radiology Reports: +/- 30 days of [...] the Encounter. The data comes from all [place] treatment facilities. Date/Time Radiology Report Provider Source Jul 14, 2024 11:13 AM KNEE 3 VIEWS (LEFT ): JEYSON SANCHEZ [id number] -1975 M Ex Date: JUL 14, 2024@11:13 Req Phys: OPAL REEVES Pat Loc: CWM/NO/PACT 4 (Req'g Loc) Img Loc: [facility] 1 Service: [place] [address] (Case [id number] COMPLETE) KNEE 3 VIEWS (LEFT) (RAD Detailed) CPT:52125 Reason for Study: 5 yrs of left knee pain Clinical History: Report Status: Verified Date Reported: JUL 14, 2024 Date Verified: JUL 14, 2024 Ground Operations Crew Member E-Sig:/ES/LIA JACINTO JR Report: Study: AP weight-bearing [...] Primary Interpreting Staff: LIA JACINTO JR, Radiologist (Ground Operations Crew Member) /LIA CARPENTER JR [facility] Encounter Notes: All associated encounter notes This section contains the clinical notes associated to the Encounter. Date/Time Encounter Note(s) Provider Source Jul 27, 2024 04:14 PM ADDENDUM: LOCAL TITLE: Addendum STANDARD TITLE: ADDENDUM DATE OF NOTE: JUL 27, 2024@16:14:03 ENTRY DATE: JUL 27, 2024@16:14:05 AUTHOR: LAUREN REEVES COSIGNER: URGENCY: STATUS: COMPLETED Rx called into [facility]. plz inform vet /brown/ OPAL REEVES MD PHYSICIAN Signed: 07/27/2024 16:14 Receipt Acknowledged By: 07/28/2024 11:09 /brown/ NEEMA YANCEY REGISTERED NURSE 07/28/2024 14:38 /es/ Clarita Valencia RN Primary Care Staff Nurse === --- Original Document --- 07/27/24 CCC: SCHEDULING ADMINISTRATION: Patient Demographics Patient Name: JEYSON SANCHEZ Patient Primary Phone: [phone] Patient Primary [address]: [address] [place] [id number] Patient : 1975 Patient Age: 49 Caller/Recipient Relation to Patient: Self Administrative Administrative Note Reason: Medication Renewal [place] Medications Refill/Renewal Request: is requesting a prescription for Omeprazole called into [facility] phone # [phone]. IMPORTANT: This note was created by [facility] staff. Please do not alert the staff member by adding them as a signer for future communications. Alerts are not monitored by this user. /brown/ ALISHA JUNIOR [facility] Signed: 07/27/2024 16:02 Receipt Acknowledged By: 07/27/2024 16:13 /brown/ OPAL REEVES MD PHYSICIAN * AWAITING SIGNATURE * CLARITA VALENCIA 07/28/2024 ADDENDUM STATUS: COMPLETED RN called please see walk in note /es/ NEEMA YANCEY REGISTERED NURSE Signed: 07/28/2024 11:10 LAUREN REEVES [place] [facility] [place] [facility] Jul 27, 2024 04:01 PM ADMINISTRATIVE NOTE: LOCAL TITLE: [facility]: SCHEDULING ADMINISTRATION STANDARD TITLE: ADMINISTRATIVE NOTE DATE OF NOTE: JUL 27, 2024@16:01:59 ENTRY DATE: JUL 27, 2024@16:01:59 AUTHOR: ALISHA ARGUETA EXP COSIGNER: URGENCY: STATUS: COMPLETED CCC: SCHEDULING ADMINISTRATION Has ADDENDA Patient Demographics Patient Name: JEYSON SANCHEZ Patient Primary Phone: [phone] Patient Primary Address: [address] [place] [address] Patient : 1975 Patient Age: 49 Caller/Recipient Relation to Patient: Self Administrative Administrative Note Reason: Medication Renewal [place] Medications Refill/Renewal Request: is requesting a prescription for Omeprazole called into [facility] phone # [phone]. IMPORTANT: This note was created by [facility] staff. Please do not alert the staff member by adding them as a signer for future communications. Alerts are not monitored by this user. /brown/ ALISHA JUNIOR [facility] Signed: 07/27/2024 16:02 Receipt Acknowledged By: 07/27/2024 16:13 /brown/ OPAL REEVES MD PHYSICIAN 07/29/2024 10:13 /brown/ Clarita Valencia RN Primary Care Staff Nurse 07/27/2024 ADDENDUM STATUS: COMPLETED Rx called into [facility]. plz inform vet /es/ OPAL REEVES MD PHYSICIAN Signed: 07/27/2024 16:14 Receipt Acknowledged By: 07/28/2024 11:09 /brown/ NEEMA YANCEY REGISTERED NURSE 07/28/2024 14:38 /es/ Clarita Valencia RN Primary Care Staff Nurse 07/28/2024 ADDENDUM STATUS: COMPLETED RN called please see walk in note /brown/ NEEMA YANCEY REGISTERED NURSE Signed: 07/28/2024 11:10 ALISHA ARGUETA [facility]
--- OUTSIDE RECORDS SUMMARY | 2024-08-31 21:17 | XMS_ITS ---
Author Name [facility] [place] Organization [facility] [place] Address [address] [place] [address] Care Team Providers Care Centerless Grinder Operator Name Role Phone MARTIN BOWERS Primary Care Provider OPAL Mckay Primary Care Provider Unav ailable Selected Encounter This section includes the information on record at [place] for the Encounter. Date/Time Encounter Type Encounter Description Reason Provider Source Jul 28, 2024 10:30 AM OFFICE O/P EST LOW 20 [facility] - IND ICD-10-CM F25.0 Schizoaffective disorder, bipolar type DERECK LONG MD [place] Encounter Template Text not used by [place] Assessments - Encounter Diagnoses This section includes the primary and secondary diagnoses documented for the Encounter. Date/Time Primary/Secondary Diagnosis Diagnosis Name Provider Source Jul 28, 2024 10:54 AM PRIMARY Schizoaffective disorder, bipolar type DERECK LONG MD [facility] [place] [facility] Jul 28, 2024 10:54 AM SECONDARY Alcohol dependence with alcohol-induced mood disorder DERECK LONG MD [facility] [place] [facility] Jul 28, 2024 10:54 AM SECONDARY Insomnia, unspecified DERECK LONG MD [facility] Plan of Treatment: Future Appointments (+ 6 months) and Future Tests (+/- 45 days) The Plan of Treatment section includes future care activities for the patient [facility] [place] [facility]. This section includes future appointments and future orders which are active, pending or scheduled. Future Appointments This section includes appointments that were scheduled to occur 6 months from the date of the Encounter, up to a maximum of 20 appointments. The data comes from all [place] treatment facilities. Appointment Date/Time Appointment Type Appointme nt Facility Name Aug 10, 2024 10:00 AM AMBULATORY - MEDICINE [place] [facility] Aug 10, 2024 03:00 PM AMBULATORY MEDICINE [place] [facility] Sep 20, 2024 03:00 PM AMBULATORY MEDICINE [place] [facility] Nov 10, 2024 10:00 AM AMBULATORY MEDICINE [facility] Active, Pending, and Scheduled Orders This section includes a listing of several types of active, pending, and scheduled orders, including clinic medications orders, diagnostic test orders, procedure orders and consult orders; where the start date of the order is 45 days before the date of the Encounter or 45 days after the date of theEncounter. The data comes from all [place] treatment facilities. Test Date/Time Test Type Test Details Facility Name Jul 14, 2024 10:55 AM Consult Order REHAB MEDI CINE/NHM OUTPT Cons Junior Paralegal's Choice [facility] Jul 19, 2024 11:25 AM Consult Order COMMUNITY CARE-DENTAL GENERAL Cons Junior Paralegal's Choice [facility] Jul 22, 2024 08:51 AM Consult Order [facility] Cons Junior Paralegal's Choice [facility] [place] [facility] Jul 22, 2024 01:51 PM Consult Order [facility] Cons Junior Paralegal's Choice [facility] Lab Results: +/- 30 days of the encounter This section includes the Chemistry and Hematology Lab Results on record with [place] for the patient. Radiology Reports and Pathology Reports are provided separately, in subsequent sections. Lab Results This section contains the Chemistry/Hematology Results that were resulted 30 days before or 30 daysafter the date of the Encounter. Date/Time Source Result Type Result - Unit Interpretation Reference Range Comment Jul 06, 2024 02:09 PM [facility] LIPID PANEL FASTING Specimen Type: SERUM No comment entered. Ordering Provider: PERRY LONG MD Report Released Date/Time: Jun 17, 2024 02:14 PM Reporting Lab: [facility] [address] [facility] [address] Performing Lab: [facility] [address] [facility] [address] CHOLESTEROL 251 mg/dL H TRIGLYCERIDE 70 mg/dL 0-150 LDL calculated 171 mg/dL H 0-129 CHOL/HDL 3.8 HDL CHOLESTEROL 66 mg/dL H 40-60 Jul 06, 2024 02:09 PM [facility] HEMOGLOBIN A1C PANEL Specimen Type: [...] Jul 01, 2024 03:56 PM Reporting Lab: [facility] [address] [facility] [address] Performing Lab: [address] [address] HEMOGLOBIN A1C 4.9 4.0-5.6 Jul 06, 2024 02:09 PM [facility] CALCIUM Specimen Type: SERUM No comment entered. Ordering Provider: Brian REEVES Report Released Date/Time: Jul 01, 2024 03:56 PM Reporting Lab: [facility] [address] [facility] [address] Performing Lab: [facility] [address] CALCIUM 9.8 mg/dL 8.5-10.2 Jul 06, 2024 02:09 PM [facility] LIVER FUNCTION Specimen Type: SERUM No comment entered. Ordering Provider: Brian REEVES Report Released Date/Time: Jul 01, 2024 03:56 PM Reporting Lab: [facility] [address] [facility] [address] Performing Lab: [address] [address] PROTEIN,TOTAL 7.4 g/dL 6.0-8.3 ALBUMIN 4.4 g/dL 3.5-5.0 ALKALINE PHOSPHATASE 95 U/L 40-150 AST 21 U/L 5-34 ALT 34 U/L BILIRUBIN, TOTAL 0.4 mg/dL 0.2-1.2 Jul 06, 2024 02:09 PM [facility] BASIC METABOLIC PANEL (non-fasting) Specimen Type: SERUM No comment entered. Ordering Provider: Brian REEVES Report Released Date/Time: Jul 01, 2024 03:56 PM Reporting Lab: [address] [address] Performing Lab: [address] [address] UREA NITROGEN 19 mg/dL 7-25 GLUCOSE 90 mg/dL 65-100 SODIUM 139 mmol/L 135-145 POTASSIUM 4.8 mmol/L 3.5-5.0 CHLORIDE 104 mmol/L 100-110 CO2 26 meq/L 20-30 CREATININE, Serum 1.04 mg/dL 0.50-1.40 eGFR(CKD-EPI 2020) 87 mL/min >60 Jul 06, 2024 02:09 PM [facility] CBC AND DIFF (AUTO) Specimen Type: BLOOD No comment entered. Ordering Provider: Brian REEVES Report Released Date/Time: Jul 01, 2024 03:56 PM Reporting Lab: [address] [address] Performing Lab: [address] [address] WBC 8.69 10*3/uL 4.50-11.00 RBC 5.01 10*6/uL [...] and tobacco- related health factors from the [place] facility where the Encounter took place. Current Smoking Status This section includes the most current smoking, or tobacco-related health factor, from the [place] facility where the Encounter took place. Date/Time Current Smoking Status Comment [facility] it Nov 19, 2023 10:00 AM VA-TOBACCO USE WI 30 MIN OF WAKEUP [place] [facility] [place] [facility] Tobacco Use History This section includes a history of the smoking, or tobacco-related health factors, that were collected on or before the date of the Encounter. The data comes from the [place] facility where the Encounter took place. Date/Time Smoking Status/Tobac co Use Comment Facility Nov 19, 2023 10:00 AM VA-TOBACCO USE ADVICE [place] [facility] [facility] [facility] Nov 19, 2023 10:00 AM VA-TOBACCO USE PROTOTYPER NO [place] [facility] Nov 19, 2023 10:00 AM VA-TOBACCO USE MED NO [place] [facility] [facility] Nov 19, 2023 10:00 AM VA-TOBACCO USE WI 30 MIN OF WAKEUP [place] [facility] [facility] Nov 19, 2023 10:00 AM VA-TOBACCO USER EVERY DAY [place] [facility] [facility] February 10, 2023 01:00 PM ORYX ADMIT TOBACCO SCREEN YES [place] [facility] [facility] February 10, 2023 01:00 PM ORYX ADMIT TOBACCO USE CIGS GR 5D [place] [facility] [facility] February 10, 2023 01:00 PM ORYX DAILY TOBACCO PROTOTYPER RECEIVED [place] [facility] [facility] February 10, 2023 01:00 PM ORYX DAILY TOBACCO MEDS ORDERED [place] [facility] [facility] Sep 02, 2022 08:00 AM VA-TOBACCO USE 30 YEARS OR MORE [place] [facility] [facility] Sep 02, 2022 08:00 AM VA-TOBACCO USE ADVICE [place] [facility] [facility] Sep 02, 2022 08:00 AM VA-TOBACCO USE PROTOTYPER YES [place] [facility] [facility] Sep 02, 2022 08:00 AM VA-TOBACCO USE MED NOTIFY PROVIDER [place] [facility] [facility] Sep 02, 2022 08:00 AM VA-TOBACCO USE WI 30 MIN OF WAKEUP [place] [facility] [facility] Sep 02, 2022 08:00 AM VA-TOBACCO USER EVERY DAY [place] [facility] [facility] Oct 12, 2016 09:13 AM QUIT TOBACCO USE 1-7 YEARS AGO [facility] [place] [facility] Sep 25, 2015 10:24 AM QUIT TOBACCO USE 1-7 YEARS AGO [place] [facility] [place] [facility] Oct 05, 2013 03:03 PM QUIT TOBACCO USE 1-7 YEARS AGO PT HAS QUIT LES THAN A YEAR AGO. [facility] [place] [facility] Oct 05, 2013 03:03 PM QUIT TOBACCO USE IN PAST YEAR [facility] Advance Directives: All historical and current Section Date Range: From patient's date of to the date document was created. This section includes ALL of a patient's completed or amended [place] Advance and Rescinded Directives. The entries below indicate that a directive exists for the patient, but an actual copy is not included with this document. The data comes from all [place] facilities. Date Advance Directives Provider Source Mar 06, 2023 ADVANCE DIRECTIVE BEV PETTIT [facility] Mar 06, 2023 ADVANCE DIRECTIVE DISCUSSION BEV PETTIT [facility] Apr 20, 2020 ADVANCE DIRECTIVE DISCUSSION ERUM MARTÍNEZ [facility] Feb 24, 2020 ADVANCE DIRECTIVE DISCUSSION POOL FUENTES [facility] Oct 30, 2016 ADVANCE DIRECTIVE KULDEEP FAM [facility] Radiology Reports: +/- 30 days [...] the Encounter. The data comes from all [place] treatment facilities. Date/Time Radiology Report Provider Source Jul 14, 2024 11:13 AM KNEE 3 VIEWS (LEFT ): JEYSON SANCHEZ [id number] -[id number] M Exm Date: JUL 14, 2024@11:13 Req Phys: OPAL REEVES Loc: CWM/NO/PACT 4 (Req'g Loc) [facility] [place]: [facility] 1 Service: Unknown [facility] [address] (Case [id number] COMPLETE) KNEE 3 VIEWS (LEFT) (RAD Detailed) CPT:54023 Reason for Study: 5 yrs of left knee pain Clinical History: Report Status: Verified Date Reported: JUL 14, 2024 Date Verified: JUL 14, 2024 Stripper Machine Operator E-Sig:/ES/LIA JACINTO JR Report: Study: AP weight-bearing [...] Primary Interpreting Staff: LIA JACINTO JR, Radiologist (Stripper Machine Operator) /LIA CARPENTER JR [facility] Encounter Notes: All associated encounter notes This section contains the clinical notes associated to the Encounter. Date/Time Encounter Note(s) Provider Source Jul 28, 2024 07:54 AM TELEHEALTH NOTE: LOCAL TITLE: [facility] VIDEO CONNECT NOTE STANDARD TITLE: TELEHEALTH NOTE DATE OF NOTE: JUL 28, 2024@07:54 ENTRY DATE: JUL 28, 2024@07:54:57 AUTHOR: JAMES LONG EXP COSIGNER: URGENCY: STATUS: [...] DO NOT TAKE WITH GRAPEFRUIT JUICE 4) INDOMETHACIN 50MG CAP TAKE ONE CAPSULE BY MOUTH TWICE DAILY NEEDED FOR GOUT 5) MULTIVITAMIN/MINERALS CAP/TAB TAKE ONE CAP/TAB BY MOUTH ONCE DAILY 6) QUETIAPINE FUMARATE 100MG TAB TAKE ONE TABLET BY MOUTH AT BEDTIME AND TAKE ONE TABLET AT BEDTIME NEEDED AND TAKE ONE TABLET AT BEDTIME NEEDED 7) TRAZODONE HCL 100MG TAB TAKE ONE TABLET BY MOUTH AT BEDTIME AND TAKE ONE- HALF TABLET AT BEDTIME NEEDED JEYSON SANCHEZ is a [place], 49 yo, male who [facility] for medication management. Two identifiers were used. CC: I was in 4L for 64 days. I'm having surgery next week I got a hernia when I was in 4L and I have an abscessed tooth. I'm in [place] now. Anisa is taking 300mg of quetiapine and 150mg of trazodone and would like to stay at this dose. Continues with anxiety related to upcoming surgery. Anisa wasn't comfortable when I was in [place] and now in [place] living with parents. No alcohol or substance use, no. No cravings and no adverse side effects from current medications. Anisa complains of sleep disturbance with initial insomnia which was improved when he was on trazodone and quetiapine. Vet was up to 450mg of quetiapine and 150mg of trazodone. No alcohol and no substance use, no. Mood is, good with no suicidal or homicidal ideations. Sleep is disturbed and anisa reports no nightmares. Appetite is, I really don't have one and anisa thinks he has lost, a little bit of weight. Some mood swings reported. Anisa carries a diagnosis of schizoaffective disorder bipolar type. Denies hearing any voices but admits to voices, Telling me to calm down, just my conscious. Sleep and appetite is, sleep's good, I just have to unwind and I'm too fat and eating too much chocolate. Anisa is working to get a [place] drivers license as he has mother driving him to his appointments. Discussed continuation of present medications as above. Patient education given including not taking anyone else's medications or giving his medications to anyone else and to secure and protect his medications from theft and children. Anisa is agreeable. MSE: JEYSON SANCHEZ is a 49 yo, male who is casually dressed wearing jeans, a knit shirt, reading glasses, tattoos on wrists, and a cap. He has good personal [...] is fair. Assessment: Schizoaffective disorder, bipolar type. Insomnia. AUD in remission Plan: Continue previous quetiapine and trazodone and taper as above. RTC 1-2 months or earlier if needed. Vet informed that I will be retiring at the end of the month. MH AIMS Testing: AIMS (Mental Health Instrument) The patient was evaluated for symptoms of tardive dyskinesia using the AIMS. Total score for items 1-7: 0 BMI>30/>24.99 High Risk: Patient declines to discuss weight management. Patient declined weight discussion. Discussed revisiting at a future visit. /brown/ JAMES LONG JR, MD STAFF PSYCHIATRIST Signed: 07/28/2024 10:54 JAMES LONG MD [place] [facility]
--- OUTSIDE RECORDS SUMMARY | 2024-08-31 21:17 | XMS_ITS | Encounter Summary ---
Author Name Department of Vetera Affairs ([place]) Organization Department of [place] Affairs [place]) Address [address] [place] [address] Care Team Providers Care Aircraft Structural Fitter Name Role Phone MARTIN BOWERS Primary Care Provider OPAL Mckay Primary Care Provider Unav ailable Selected Encounter This section includes the information on record at [place] for the Encounter. Date/Time Encounter Type Encounter Description Reason Pro vider Source Jul 28, 2024 12:17 PM Outpatient Encounter PRIMARY CARE/MEDICINE IHE Encounter Template Text not used by [place] Plan of Treatment: Future Appointments (+ 6 months) and Future Tests (+/- 45 days) The Plan of Treatment section includes future care activities for the patient from all [place] treatmentfacilities. This section includes future appointments and future orders which are active, pending or scheduled. Future Appointments This section includes appointments that were scheduled to occur 6 months from the date of the Encounter, up to a maximum of 20 appointments. The data comes from all [place] treatment facilities. Appointment Date/Time Appointment Type Appointme nt Facility Name Aug 10, 2024 10:00 AM AMBULATORY - MEDICINE [place] [facility] [place] [facility] Aug 10, 2024 03:00 PM AMBULATORY - MEDICINE [place] [facility] [facility] Sep 20, 2024 03:00 PM AMBULATORY - MEDICINE [facility] [place] [facility] Nov 10, 2024 10:00 AM AMBULATORY - MEDICINE [facility] Active, Pending, and Scheduled Orders This section includes a listing of several types of active, pending, and scheduled orders, including clinic medications orders, diagnostic test orders, procedure orders and consult orders; where the start date of the order is 45 days before the date of the Encounter or 45 days after the date of theEncounter. The data comes from all [place] treatment facilities. Test Date/Time Test Type Test Details Facility Name Jul 14, 2024 10:55 AM Consult Order REHAB MEDI CINE/NHM OUTPT Cons Consumer Analyst's Choice [facility] Jul 19, 2024 11:25 AM Consult Order COMMUNITY CARE-DENTAL GENERAL Cons Consumer Analyst's Choice [facility] Jul 22, 2024 08:51 AM Consult Order COMMUNITY CARE-DENTAL GENERAL Cons Consumer Analyst's Choice [facility] Jul 22, 2024 01:51 PM Consult Order COMMUNITY CARE-DENTAL GENERAL Cons Consumer Analyst's Choice [facility] Lab Results: +/- 30 days of the encounter This section includes the Chemistry and Hematology Lab Results on record with [place] for the patient. Radiology Reports and Pathology Reports are provided separately, in subsequent sections. Lab Results This section contains the Chemistry/Hematology Results that were resulted 30 days before or 30 daysafter the date of the Encounter. Date/Time Source Result Type Result - Unit Interpretation Reference Range Comment Jul 06, 2024 02:09 PM [facility] LIPID PANEL FASTING Specimen Type: SERUM No comment entered. Ordering Provider: PERRY LONG MD Report Released Date/Time: Jun 17, 2024 02:14 PM Reporting Lab: [address] [address] Performing Lab: [address] [address] CHOLESTEROL 251 mg/dL H TRIGLYCERIDE 70 mg/dL 0-150 LDL calculated 171 mg/dL H 0-129 CHOL/HDL 3.8 HDL CHOLESTEROL 66 mg/dL H 40-60 Jul 06, 2024 02:09 PM [facility] CALCIUM Specimen Type: SERUM No comment entered. Ordering Provider: Brian REEVES Report Released Date/Time: Jul 01, 2024 03:56 PM Reporting Lab: [facility] [address] [facility] [address] Performing Lab: [facility] [address] [facility] [address] CALCIUM 9.8 mg/dL 8.5-10.2 Jul 06, 2024 02:09 PM [facility] HEMOGLOBIN A1C PANEL Specimen Type: BLOOD Comment: [...] Jul 01, 2024 03:56 PM Reporting Lab: [facility] [address] [facility] [address] Performing Lab: [address] [address] HEMOGLOBIN A1C 4.9 4.0-5.6 Jul 06, 2024 02:09 PM [facility] LIVER FUNCTION Specimen Type: SERUM No comment entered. Ordering Provider: Brian REEVES Report Released Date/Time: Jul 01, 2024 03:56 PM Reporting Lab: [facility] [address] [facility] [address] Performing Lab: [address] [address] PROTEIN,TOTAL 7.4 g/dL 6.0-8.3 ALBUMIN 4.4 g/dL 3.5-5.0 ALKALINE PHOSPHATASE 95 U/L 40-150 AST 21 U/L 5-34 ALT 34 U/L BILIRUBIN, TOTAL 0.4 mg/dL 0.2-1.2 Jul 06, 2024 02:09 PM [facility] BASIC METABOLIC PANEL (non-fasting) Specimen Type: SERUM No comment entered. Ordering Provider: Brian REEVES Report Released Date/Time: Jul 01, 2024 03:56 PM Reporting Lab: [facility] [address] [facility] [address] Performing Lab: [address] [address] UREA NITROGEN 19 mg/dL 7-25 GLUCOSE 90 mg/dL 65-100 SODIUM 139 mmol/L 135-145 POTASSIUM 4.8 mmol/L 3.5-5.0 CHLORIDE 104 mmol/L 100-110 CO2 26 meq/L 20-30 CREATININE, Serum 1.04 mg/dL 0.50-1.40 eGFR(CKD-EPI 2020) 87 mL/min >60 Jul 06, 2024 02:09 PM [facility] CBC AND DIFF (AUTO) Specimen Type: BLOOD No comment entered. Ordering Provider: Brian REEVES Report Released Date/Time: Jul 01, 2024 03:56 PM Reporting Lab: [address] [address] Performing Lab: [address] [address] WBC 8.69 10*3/uL 4.50-11.00 RBC 5.01 10*6/uL [...] and tobacco- related health factors from the [place] facility where the Encounter took place. Current Smoking Status This section includes the most current smoking, or tobacco-related health factor, from the [place] facility where the Encounter took place. Date/Time Current Smoking Status Comment Gino hernadez Nov 19, 2023 10:00 AM VA-TOBACCO USER EVERY DAY [place] [facility] [place] [facility] Tobacco Use History This section includes a history of the smoking, or tobacco-related health factors, that were collected on or before the date of the Encounter. The data comes from the [place] facility where the Encounter took place. Date/Time Smoking Status/Tobac co Use Comment Facility Nov 19, 2023 10:00 AM VA-TOBACCO USE ADVICE [place] [facility] [place] [facility] Nov 19, 2023 10:00 AM VA-TOBACCO USE SCIENCE INTERPRETER NO [place] [facility] [place] [facility] Nov 19, 2023 10:00 AM VA-TOBACCO USE MED NO [place] [facility] [place] [facility] Nov 19, 2023 10:00 AM VA-TOBACCO USE WI 30 MIN OF WAKEUP DE [facility] [place] [facility] Nov 19, 2023 10:00 AM VA-TOBACCO USER EVERY DAY VA [facility] [place] [facility] February 10, 2023 01:00 PM ORYX ADMIT TOBACCO SCREEN YES [place] [facility] [place] [facility] February 10, 2023 01:00 PM ORYX ADMIT TOBACCO USE CIGS GR 5D [facility] February 10, 2023 01:00 PM ORYX DAILY TOBACCO SCIENCE INTERPRETER RECEIVED [facility] February 10, 2023 01:00 PM ORYX DAILY TOBACCO MEDS ORDERED [facility] Sep 02, 2022 08:00 AM VA-TOBACCO USE 30 YEARS OR MORE [facility] Sep 02, 2022 08:00 AM VA-TOBACCO USE ADVICE [facility] Sep 02, 2022 08:00 AM VA-TOBACCO USE SCIENCE INTERPRETER YES [facility] Sep 02, 2022 08:00 AM VA-TOBACCO USE MED NOTIFY PROVIDER [facility] Sep 02, 2022 08:00 AM VA-TOBACCO USE [place] 30 MIN OF WAKEUP [facility] Sep 02, 2022 08:00 AM VA-TOBACCO USER EVERY DAY [facility] Oct 12, 2016 09:13 AM QUIT TOBACCO USE 1-7 YEARS AGO [facility] Sep 25, 2015 10:24 AM QUIT TOBACCO USE 1-7 YEARS AGO [facility] Oct 05, 2013 03:03 PM QUIT TOBACCO USE 1-7 YEARS AGO PT HAS QUIT LES THAN A YEAR AGO. [facility] Oct 05, 2013 03:03 PM QUIT TOBACCO USE IN PAST YEAR [facility] Advance Directives: All historical and current Section Date Range: From patient's date of to the date document was created. This section includes ALL of a patient's completed or amended [place] Advance and Rescinded Directives. The entries below indicate that a directive exists for the patient, but an actual copy is not included with this document. The data comes from all [place] facilities. Date Advance Directives Provider Source Mar 06, 2023 ADVANCE DIRECTIVE BEV PETTIT [facility] Mar 06, 2023 ADVANCE DIRECTIVE DISCUSSION BEV PETTIT [facility] Apr 20, 2020 ADVANCE DIRECTIVE DISCUSSION [facility] Feb 24, 2020 ADVANCE DIRECTIVE DISCUSSION POOL FUENTES [facility] Oct 30, 2016 ADVANCE DIRECTIVE KULDEEP FAM [facility] Radiology Reports: +/- 30 days of the [...] the Encounter. The data comes from all [place] treatment facilities. Date/Time Radiology Report Provider Source Jul 14, 2024 11:13 AM KNEE 3 VIEWS (LEFT ): JEYSON SANCHEZ [id number] -[id number] M Exm Date: JUL 14, 2024@11:13 Req Phys: OPAL REEVES Pat Loc: CWM/NO/PACT 4 (Req'g Loc) Img Loc: [facility] 1 Service: [place] [address] (Case [id number] COMPLETE) KNEE 3 VIEWS (LEFT) (RAD Detailed) CPT:73407 Reason for Study: 5 yrs of left knee pain Clinical History: Report Status: Verified Date Reported: JUL 14, 2024 Date Verified: JUL 14, 2024 Bonded Structures Repairer E-Sig:/ES/LIA JACINTO JR Report: Study: AP weight-bearing [...] Primary Interpreting Staff: LIA JACINTO JR, Radiologist (Bonded Structures Repairer) /LIA CARPENTER JR [facility] Encounter Notes: All associated encounter notes This section contains the clinical notes associated to the Encounter. Date/Time Encounter Note(s) Provider Source Jul 28, 2024 10:10 AM PRIMARY CARE NOTE: LOCAL TITLE: WALK-IN NOTE PRIMARY CARE (T) STANDARD TITLE: PRIMARY CARE NOTE DATE OF NOTE: JUL 28, 2024@10:10 ENTRY DATE: JUL 28, 2024@12:18:17 AUTHOR: QUINN WONG EXP COSIGNER: URGENCY: STATUS: COMPLETED WALK-IN NOTE PRIMARY CARE (T) Has ADDENDA <====Click to Start Advanced Medical Support presents to the Primary Care clinic with the following request: [ ]Medication Renewal/Refill [ ]Consultation with Team RN [ ]Symptoms [ X ]Other-[place] came in asking for pain injection shot. States he was getting them while on 4L. [facility] gave last PCP msg from last walk in note. He asked if he could see his PCP today. No appts available. He said he has tooth pain, groin and knee pain. Having hernia surgery next week. He asked if he has to admit back to 4L to get injection The states they are: [ ]Waiting [ X ]Not Waiting No Walk in visit scheduled with PACT Nurse [ X ] At this encounter the 's demographics were verified. [ X ] At this encounter the [place]'s Insurance information was verified. [ X ] At this encounter the below scheduled visits for the were discussed and appointment reminder card was offered. Future appointments: 08/10/2024 10:00 CWM/NO/PODIATRY A 08/24/2024 10:00 NHM DENTAL DMD 2 08/24/2024 11:30 NHM/OPTOMETRY/FRANCIS/ 08/24/2024 14:00 CWM/NO/MED REHAB 1 PA 09/20/2024 15:00 CWM/NO/PACT 4 11/10/2024 10:00 CWM/NO/PACT 4 /es/ QUINN WONG Advanced Game Author Signed: 07/28/2024 12:23 07/28/2024 ADDENDUM STATUS: COMPLETED MSA gave msg about consult for pain clinic 3 times but vet would not answer. /brown/ QUINN WONG Advanced Game Author Signed: 07/28/2024 12:24 QUINN WONG [facility]
--- OUTSIDE RECORDS SUMMARY | 2024-08-31 21:18 | XMS_ITS | Encounter Summary ---
Author Name Department of [place] Organization [place] Address [address] [place] [id number] Care Team Providers Care Oil Pipe Inspector Helper Name Role Phone MARTIN BOWRES Primary Care Provider OPAL Mckay Primary Care Provider Unajerome ailable Selected Encounter This section includes the information on record at [place] for the Encounter. Date/Time Encounter Type Encounter Description Reason Pro vider Source IHE Encounter Template Text not used by [place] Advance Directives: All historical and current Section Date Range: From patient's date of to the date document was created. This section includes ALL of a patient's completed or amended [place] Advance and Rescinded Directives. The entries below indicate that a directive exists for the patient, but an actual copy is not included with this document. The data comes from all [place] facilities. Date Advance Directives Provider Source Mar 06, 2023 ADVANCE DIRECTIVE BEV PETTIT [place] [facility] [place] [facility] Mar 06, 2023 ADVANCE DIRECTIVE DISCUSSION BEV PETTIT [place] [facility] [place] [facility] Apr 20, 2020 ADVANCE DIRECTIVE DISCUSSION ERUM MARTÍNEZ [facility] Feb 24, 2020 ADVANCE DIRECTIVE DISCUSSION POOL FUENTES [facility] Oct 30, 2016 ADVANCE DIRECTIVE KULDEEP FAM [place] [facility]
--- OUTSIDE RECORDS SUMMARY | 2024-08-31 21:18 | XMS_ITS | Encounter Summary ---
Author Name Department of Vetera Affairs ([place]) Organization [place] Address [address] [place] [address] Care Team Providers Care Food Counselor Name Role Phone MARTIN BOWERS Primary Care Provider OPAL Mckay Primary Care Provider Unav ailable Selected Encounter This section includes the information on record at [place] for the Encounter. Date/Time Encounter Type Encounter Description Reason Pro vider Source Jul 13, 2024 12:00 AM Outpatient Encounter COMMUNITY CARE CONSULT IHE Encounter Template Text not used by [place] Plan of Treatment: Future Appointments (+ 6 months) and Future Tests (+/- 45 days) The Plan of Treatment section includes future care activities for the patient from all [place] treatmentfacilities. This section includes future appointments and future orders which are active, pending or scheduled. Future Appointments This section includes appointments that were scheduled to occur 6 months from the date of the Encounter, up to a maximum of 20 appointments. The data comes from all [place] treatment facilities. Appointment Date/Time Appointment Type Appointme nt Facility Name Jul 14, 2024 10:30 AM AMBULATORY - MEDICINE [facility] [place] [facility] Jul 20, 2024 03:30 PM AMBULATORY - MEDICINE [facility] [place] [facility] Jul 26, 2024 01:30 PM AMBULATORY - MEDICINE [place] [facility] [place] [place] [facility] Jul 28, 2024 10:30 AM AMBULATORY - PSYCHIATRY [place] [facility] [place] [facility] Aug 10, 2024 10:00 AM AMBULATORY - MEDICINE [place] [facility] [place] [facility] Aug 10, 2024 03:00 PM AMBULATORY - MEDICINE [place] [facility] [place] [place] [facility] Sep 20, 2024 03:00 PM AMBULATORY - MEDICINE [place] [facility] [place] [facility] Nov 10, 2024 10:00 AM AMBULATORY - MEDICINE [place] [facility] [facility] Active, Pending, and Scheduled Orders This section includes a listing of several types of active, pending, and scheduled orders, including clinic medications orders, diagnostic test orders, procedure orders and consult orders; where the start date of the order is 45 days before the date of the Encounter or 45 days after the date of theEncounter. The data comes from all [place] treatment facilities. Test Date/Time Test Type Test Details Facility Name Jun 09, 2024 01:58 PM Consult Order COMMUNITY CARE-GEN SURGERY Cons Transmitter Engineer's Choice [facility] [place] [facility] Jun 09, 2024 03:46 PM Consult Order PSYCHOTHER APY BHIP/NHM OUTPT Cons Transmitter Engineer's Choice [place] [facility] [place] [facility] Jul 14, 2024 10:55 AM Consult Order REHAB MEDI CINE/NHM OUTPT Cons Transmitter Engineer's Choice [place] [facility] [place] [facility] Jul 19, 2024 11:25 AM Consult Order COMMUNITY CARE-DENTAL GENERAL Cons Transmitter Engineer's Choice [place] [facility] [place] [facility] Jul 22, 2024 08:51 AM Consult Order COMMUNITY CARE-DENTAL GENERAL Cons Transmitter Engineer's Choice [place] [facility] [place] [facility] Jul 22, 2024 01:51 PM Consult Order COMMUNITY CARE-DENTAL GENERAL Cons Transmitter Engineer's Choice [place] [facility] [place] [facility] Lab Results: +/- 30 days of [...] Range Comment Jul 06, 2024 02:09 PM [facility] LIPID PANEL FASTING Specimen Type: SERUM No comment entered. Ordering Provider: PERRY LONG MD Report Released Date/Time: Jun 17, 2024 02:14 PM Reporting Lab: [facility] [address] [facility] [address] Performing Lab: [address] [address] CHOLESTEROL 251 mg/dL H TRIGLYCERIDE 70 mg/dL 0-150 LDL calculated 171 mg/dL H 0-129 CHOL/HDL 3.8 HDL CHOLESTEROL 66 mg/dL H 40-60 Jul 06, 2024 02:09 PM [facility] BASIC METABOLIC PANEL (non-fasting) Specimen Type: SERUM No comment entered. Ordering Provider: Brian REEVES Report Released Date/Time: Jul 01, 2024 03:56 PM Reporting Lab: [address] [address] Performing Lab: [address] [address] UREA NITROGEN 19 mg/dL 7-25 GLUCOSE 90 mg/dL 65-100 SODIUM 139 mmol/L 135-145 POTASSIUM 4.8 mmol/L 3.5-5.0 CHLORIDE 104 mmol/L 100-110 CO2 26 meq/L 20-30 CREATININE, Serum 1.04 mg/dL 0.50-1.40 eGFR(CKD-EPI 2020) 87 mL/min >60 Jul 06, 2024 02:09 PM [facility] LIVER FUNCTION Specimen Type: SERUM No comment entered. Ordering Provider: Brian REEVES Report Released Date/Time: Jul 01, 2024 03:56 PM Reporting Lab: [address] [address] Performing Lab: [address] [address] PROTEIN,TOTAL 7.4 g/dL 6.0-8.3 ALBUMIN 4.4 g/dL 3.5-5.0 ALKALINE PHOSPHATASE 95 U/L 40-150 AST 21 U/L 5-34 ALT 34 U/L BILIRUBIN, TOTAL 0.4 mg/dL 0.2-1.2 Jul 06, 2024 02:09 PM [facility] CALCIUM Specimen Type: SERUM No comment entered. Ordering Provider: Brian REEVES Report Released Date/Time: Jul 01, 2024 03:56 PM Reporting Lab: [address] [address] Performing Lab: [address] [address] CALCIUM 9.8 mg/dL 8.5-10.2 Jul 06, 2024 02:09 PM [facility] CBC AND DIFF (AUTO) Specimen Type: BLOOD No comment entered. Ordering Provider: Brian REEVES Report Released Date/Time: Jul 01, 2024 03:56 PM Reporting Lab: [facility] [address] [facility] [address] Performing Lab: [address] [address] WBC 8.69 10*3/uL 4.50-11.00 RBC 5.01 10*6/uL [...] 0.0 0.0-0.0 NRBC, ABS 0.00 10*3/uL 0.00-0.00 Jul 06, 2024 02:09 PM [facility] HEMOGLOBIN A1C PANEL Specimen Type: BLOOD [...] Jul 01, 2024 03:56 PM Reporting Lab: [address] [address] Performing Lab: [address] [address] HEMOGLOBIN A1C 4.9 4.0-5.6 Social History: Smoking Status (Most current) and Tobacco Use (All prior to encounter date) This section includes the most current, and the historical, smoking and tobacco- related health factors from the [place] facility where the Encounter took place. Current Smoking Status This section includes the most current smoking, or tobacco-related health factor, from the [place] facility where the Encounter took place. Date/Time Current Smoking Status Comment [facility] Nov 19, 2023 10:00 AM VA-TOBACCO USER EVERY DAY [facility] Tobacco Use History This section includes a history of the smoking, or tobacco-related health factors, that were collected on or before the date of the Encounter. The data comes from the [place] facility where the Encounter took place. Date/Time Smoking Status/Tobac co Use Comment Facility Nov 19, 2023 10:00 AM VA-TOBACCO USE ADVICE [place] [facility] [place] [facility] Nov 19, 2023 10:00 AM VA-TOBACCO USE RESOURCE DEVELOPMENT MANAGER NO [place] [facility] [place] [facility] Nov 19, 2023 10:00 AM VA-TOBACCO USE MED NO [place] [facility] [place] [facility] Nov 19, 2023 10:00 AM VA-TOBACCO USE [place] 30 MIN OF WAKEUP [place] [facility] [place] [facility] Nov 19, 2023 10:00 AM VA-TOBACCO USER EVERY DAY [place] [facility] [place] [facility] February 10, 2023 01:00 PM ORYX ADMIT TOBACCO SCREEN YES [place] [facility] [facility] February 10, 2023 01:00 PM ORYX ADMIT TOBACCO USE CIGS GR 5D [place] [facility] [facility] February 10, 2023 01:00 PM ORYX DAILY TOBACCO RESOURCE DEVELOPMENT MANAGER RECEIVED [place] [facility] [place] [facility] February 10, 2023 01:00 PM ORYX DAILY TOBACCO MEDS ORDERED [place] [facility] [place] [facility] Sep 02, 2022 08:00 AM VA-TOBACCO USE 30 YEARS OR MORE [place] [facility] [facility] Sep 02, 2022 08:00 AM VA-TOBACCO USE ADVICE [place] [facility] [place] [facility] Sep 02, 2022 08:00 AM VA-TOBACCO USE RESOURCE DEVELOPMENT MANAGER YES [place] [facility] [place] [facility] Sep 02, 2022 08:00 AM VA-TOBACCO USE MED NOTIFY PROVIDER [place] [facility] [place] [facility] Sep 02, 2022 08:00 AM VA-TOBACCO USE [place] 30 MIN OF WAKEUP [place] [facility] [place] [facility] Sep 02, 2022 08:00 AM VA-TOBACCO USER EVERY DAY [place] [facility] [place] [facility] Oct 12, 2016 09:13 AM QUIT TOBACCO USE 1-7 YEARS AGO [place] [facility] [place] [facility] Sep 25, 2015 10:24 AM QUIT TOBACCO USE 1-7 YEARS AGO [place] [facility] [place] [facility] Oct 05, 2013 03:03 PM QUIT TOBACCO USE 1-7 YEARS AGO PT HAS QUIT LES THAN A YEAR AGO. [place] [facility] Oct 05, 2013 03:03 PM QUIT TOBACCO USE IN PAST YEAR [facility] Advance Directives: All historical and current Section Date Range: From patient's date of to the date document was created. This section includes ALL of a patient's completed or amended [place] Advance and Rescinded Directives. The entries below indicate that a directive exists for the patient, but an actual copy is not included with this document. The data comes from all [place] facilities. Date Advance Directives Provider Source Mar 06, 2023 ADVANCE DIRECTIVE BEV PETTIT [facility] Mar 06, 2023 ADVANCE DIRECTIVE DISCUSSION BEV PETTIT [facility] Apr 20, 2020 ADVANCE DIRECTIVE DISCUSSION ERUM MARTÍNEZ [facility] Feb 24, 2020 ADVANCE DIRECTIVE DISCUSSION POOL FUENTES [facility] Oct 30, 2016 ADVANCE DIRECTIVE KULDEEP FAM [facility] Radiology Reports: +/- 30 days of [...] the Encounter. The data comes from all [place] treatment facilities. Date/Time Radiology Report Provider Source Jul 14, 2024 11:13 AM KNEE 3 VIEWS (LEFT ): JEYSON SANCHEZ [id number] -1975 M Ex Date: JUL 14, 2024@11:13 Req Phys: OPAL REEVES Loc: CWM/NO/PACT 4 (Req'g Loc) Img Loc: [facility] 1 Service: Unknown [place] [place] [address] (Case [id number] COMPLETE) KNEE 3 VIEWS (LEFT) (RAD Detailed) CPT:57588 Reason for Study: 5 yrs of left knee pain Clinical History: Report Status: Verified Date Reported: JUL 14, 2024 Date Verified: JUL 14, 2024 Drawing Instructor E-Sig:/ES/LIA JACINTO JR Report: Study: AP [...] Primary Interpreting Staff: LIA JACINTO JR, Radiologist (Drawing Instructor) /LIA CARPENTER JR [facility] Encounter Notes: All associated encounter notes This section contains the clinical notes associated to the Encounter. Date/Time Encounter Note(s) Provider Source Jul 13, 2024 12:00 AM NONVA CONSULT: LOCAL TITLE: COMMUNITY CARE-CONSULT RESULT NOTE STANDARD TITLE: NONVA CONSULT DATE OF NOTE: JUL 13, 2024 ENTRY DATE: AUG 06, 2024@14:56:28 AUTHOR: JOSHUA FLORES COSIGNER: URGENCY: STATUS: COMPLETED VistA Imaging - Scanned Document SCANNED DOCUMENT SIGNATURE NOT REQUIRED Electronically Filed: 08/06/2024 by: JOSHUA FLORES UM RN JOSHUA FLORES [facility]
--- OUTSIDE RECORDS SUMMARY | 2024-08-31 21:18 | XMS_ITS | Encounter Summary ---
Author Name [facility] [place] Organization [place] Address [address] [place] [address] Care Team Providers Care Biomathematician Name Role Phone MARTIN BOWERS Primary Care Provider OPAL Mckay Primary Care Provider Unav ailable Selected Encounter This section includes the information on record at [place] for the Encounter. Date/Time Encounter Type Encounter Description Reason Pro vider Source Aug 09, 2024 11:53 AM Outpatient Encounter PAIN CLINIC IHE Encounter Template Text not used by [...] 10, 2024 10:00 AM AMBULATORY - MEDICINE [facility] [place] [facility] Aug 10, 2024 03:00 PM AMBULATORY - MEDICINE [facility] [place] [facility] Sep 20, 2024 03:00 PM AMBULATORY - MEDICINE [facility] [place] [facility] Nov 10, 2024 10:00 AM AMBULATORY - MEDICINE [facility] Active, Pending, and Scheduled Orders This [...] Consult Order REHAB MEDI CINE/[facility] OUTPT Cons Boring Machine Set Up Operator[facility] Choice [facility] Jul 19, 2024 11:25 AM Consult Order COMMUNITY CARE-DENTAL GENERAL Cons Boring Machine Set Up Operator's Choice [place] [facility] Jul 22, 2024 08:51 AM Consult Order COMMUNITY CARE-DENTAL GENERAL Cons Boring Machine Set Up [facility] [place] [facility] Jul 22, 2024 01:51 PM Consult Order COMMUNITY CARE-DENTAL GENERAL Cons Boring Machine Set Up Operator's [facility] Social History: Smoking Status (Most current) [...] 2023 10:00 AM VA-TOBACCO USER EVERY DAY [facility] Tobacco Use History This section includes a history of the smoking, or tobacco-related health factors, that were collected on or before the date of the Encounter. The data comes from the [place] facility where the Encounter took place. Date/Time Smoking Status/Tobac co Use Comment Facility Nov 19, 2023 10:00 AM VA-TOBACCO USE ADVICE [place] [facility] Nov 19, 2023 10:00 AM VA-TOBACCO USE MANAGER PEST NO [place] [facility] Nov 19, 2023 10:00 AM VA-TOBACCO USE MED NO [facility] [place] [facility] Nov 19, 2023 10:00 AM VA-TOBACCO USE WI 30 MIN OF WAKEUP [place] [facility] Nov 19, 2023 10:00 AM VA-TOBACCO USER EVERY DAY [place] [facility] February 10, 2023 01:00 PM ORYX ADMIT TOBACCO SCREEN YES [place] [facility] February 10, 2023 01:00 PM ORYX ADMIT TOBACCO USE CIGS GR 5D [place] [facility] February 10, 2023 01:00 PM ORYX DAILY TOBACCO MANAGER PEST RECEIVED [place] [facility] February 10, 2023 01:00 PM ORYX DAILY TOBACCO MEDS ORDERED [place] [facility] Sep 02, 2022 08:00 AM VA-TOBACCO USE 30 YEARS OR MORE [place] [facility] Sep 02, 2022 08:00 AM VA-TOBACCO [facility] ADVICE [facility] [place] [facility] Sep 02, 2022 08:00 AM VA-TOBACCO USE MANAGER PEST YES [facility] [place] [facility] Sep 02, 2022 08:00 AM VA-TOBACCO USE MED NOTIFY PROVIDER [place] [facility] Sep 02, 2022 08:00 AM VA-TOBACCO USE WI 30 MIN OF WAKEUP [place] [facility] Sep 02, 2022 08:00 AM VA-TOBACCO USER EVERY DAY [place] [facility] Oct 12, 2016 09:13 AM QUIT TOBACCO USE 1-7 YEARS AGO [place] [facility] Sep 25, 2015 10:24 AM QUIT TOBACCO USE 1-7 YEARS AGO [place] [facility] Oct 05, 2013 03:03 PM QUIT TOBACCO USE 1-7 YEARS AGO PT HAS QUIT LES THAN A YEAR AGO. [place] [facility] Oct 05, 2013 03:03 PM QUIT TOBACCO USE IN PAST YEAR [place] CNT [place] [facility] Advance Directives: All historical and current [...] Mar 06, 2023 ADVANCE DIRECTIVE BEV PETTIT [facility] Mar 06, 2023 ADVANCE DIRECTIVE DISCUSSION BEV PETTIT [facility] Apr 20, 2020 ADVANCE DIRECTIVE DISCUSSION ERUM MARTÍNEZ CB Feb 24, 2020 ADVANCE DIRECTIVE DISCUSSION POOL FUENTES [facility] Oct 30, 2016 ADVANCE DIRECTIVE CRISTELKULDEEP Jojo [facility] Radiology Reports: +/- 30 days of [...] the Encounter. The data comes from all [place] treatment facilities. Date/Time Radiology Report Provider Source Jul 14, 2024 11:13 AM KNEE 3 VIEWS (LEFT ): JEYSON SANCHEZ [id number] -1975 M Ex Date: JUL 14, 2024@11:13 Req Phys: OPAL REEVES Pat Loc: CWM/NO/PACT 4 (Req'g Loc) [facility] [place] Loc: [facility] 1 Service: [place] [address] (Case [id number] COMPLETE) KNEE 3 VIEWS (LEFT) (RAD Detailed) CPT:45514 Reason for Study: 5 yrs of left knee pain Clinical History: Report Status: Verified Date Reported: JUL 14, 2024 Date Verified: JUL 14, 2024 Visual Display Associate E-Sig:/ES/LIA JACINTO JR Report: Study: AP weight-bearing [...] Primary Interpreting Staff: LIA JACINTO JR, Radiologist (Visual Display Associate) /LIA CARPENTER JR [facility] Encounter Notes: All associated encounter notes This section contains the clinical notes associated to the Encounter. Date/Time Encounter Note(s) Provider Source Aug 09, 2024 11:53 AM TELEPHONE ENCOUNTE R NOTE: LOCAL TITLE: TELEPHONE NOTE/SPECIALTY CLINIC STANDARD TITLE: TELEPHONE ENCOUNTER NOTE DATE OF NOTE: AUG 09, 2024@11:53 ENTRY DATE: AUG 09, 2024@11:53:54 AUTHOR: GURDEEP GRIFFITHS COSIGNER: URGENCY: STATUS: COMPLETED Called and spoke with pt to reminded them that they have a FTF appt with the Pain clinic on 08/10/2024 at 1500. Location was confirmed. /brown/ GURDEEP GRIFFITHS ADVANCED PATTERN PUNCHER Signed: 08/09/2024 11:54 GURDEEP GRIFFITHS [facility]
--- OUTSIDE RECORDS SUMMARY | 2024-08-31 21:19 | XMS_ITS ---
Author Name [facility] [place] Organization [place] Address [address] [place] [address] Care Team Providers Care Process Supervisor Name Role Phone MARTIN BOWERS Primary Care Provider OPAL Mckay Primary Care Provider Unav ailable Selected Encounter This section includes the information on record at [place] for the Encounter. Date/Time Encounter Type Encounter Description Reason Pro vider Source Jul 22, 2024 12:00 AM Outpatient Encounter COMMUNITY CARE CONSULT IHE Encounter Template Text not used by [place] Plan of Treatment: Future Appointments (+ 6 months) and Future Tests (+/- 45 days) The Plan of Treatment section includes future care activities for the patient from all [place] treatmentfacilities. This section includes future appointments and future orders which are active, pending or scheduled. Future Appointments This section includes appointments that were scheduled to occur 6 months from the date of the Encounter, up to a maximum of 20 appointments. The data comes from all [place] treatment facilities. Appointment Date/Time Appointment Type Appointme nt Facility Name Jul 26, 2024 01:30 PM AMBULATORY - MEDICINE [facility] [place] [facility] Jul 28, 2024 10:30 AM AMBULATORY - PSYCHIATRY [place] [facility] [place] [facility] Aug 10, 2024 10:00 AM AMBULATORY - MEDICINE [facility] [place] [place] [facility] Aug 10, 2024 03:00 PM AMBULATORY - MEDICINE [facility] [place] [place] [facility] Sep 20, 2024 03:00 PM AMBULATORY - MEDICINE [facility] [place] [place] [facility] Nov 10, 2024 10:00 AM AMBULATORY - MEDICINE [facility] [place] [place] [facility] Active, Pending, and Scheduled Orders This section includes a listing of several types of active, pending, and scheduled orders, including clinic medications orders, diagnostic test orders, procedure orders and consult orders; where the start date of the order is 45 days before the date of the Encounter or 45 days after the date of theEncounter. The data comes from all [place] treatment facilities. Test Date/Time Test Type Test Details Facility Name Jun 09, 2024 01:58 PM Consult Order COMMUNITY CARE-GEN SURGERY Cons Head Of Measurement & Insights's Choice [facility] [place] [facility] Jun 09, 2024 03:46 PM Consult Order PSYCHOTHER APY BHIP/NHM OUTPT Cons Head Of Measurement & Insights's Choice [facility] [place] [facility] Jul 14, 2024 10:55 AM Consult Order REHAB MEDI CINE/NHM OUTPT Cons Head Of Measurement & Insights's Choice [facility] [place] [facility] Jul 19, 2024 11:25 AM Consult Order COMMUNITY CARE-DENTAL GENERAL Cons Head Of Measurement & Insights's Choice [facility] [place] [facility] Jul 22, 2024 08:51 AM Consult Order COMMUNITY CARE-DENTAL GENERAL Cons Head Of Measurement & Insights's Choice [facility] [place] [facility] Jul 22, 2024 01:51 PM Consult Order COMMUNITY CARE-DENTAL GENERAL Cons Head Of Measurement & Insights's Choice [facility] [place] [facility] Lab Results: +/- 30 days of the encounter This section includes the Chemistry and Hematology Lab Results on record with [place] for the patient. Radiology Reports and Pathology Reports are provided separately, in subsequent sections. Lab Results This section contains the Chemistry/Hematology Results that were resulted 30 days before or 30 daysafter the date of the Encounter. Date/Time Source Result Type Result - Unit Interpretation Reference Range Comment Jul 06, 2024 02:09 PM [facility] LIPID PANEL FASTING Specimen Type: SERUM No comment entered. Ordering Provider: PERRY LONG MD Report Released Date/Time: Jun 17, 2024 02:14 PM Reporting [facility] [address] [address] Performing Lab: [facility] [address] CHOLESTEROL 251 mg/dL H TRIGLYCERIDE 70 mg/dL 0-150 LDL calculated 171 mg/dL H 0-129 CHOL/HDL 3.8 HDL CHOLESTEROL 66 mg/dL H 40-60 Jul 06, 2024 02:09 PM [facility] HEMOGLOBIN A1C PANEL Specimen Type: BLOOD Comment: [...] Jul 01, 2024 03:56 PM Reporting Lab: [facility] [address] Performing Lab: [facility] [address] [address] HEMOGLOBIN A1C 4.9 4.0-5.6 Jul 06, 2024 02:09 PM [facility] CALCIUM Specimen Type: SERUM No comment entered. Ordering Provider: Brian REEVES Report Released Date/Time: Jul 01, 2024 03:56 PM Reporting Lab: [facility] [address] [address] Performing Lab: [facility] [address] [address] CALCIUM 9.8 mg/dL 8.5-10.2 Jul 06, 2024 02:09 PM [facility] LIVER FUNCTION Specimen Type: SERUM No comment entered. Ordering Provider: Brian REEVES Report Released Date/Time: Jul 01, 2024 03:56 PM Reporting Lab: [facility] [address] [address] Performing Lab: [facility] [address] [address] PROTEIN,TOTAL 7.4 g/dL 6.0-8.3 ALBUMIN 4.4 g/dL 3.5-5.0 ALKALINE PHOSPHATASE 95 U/L 40-150 AST 21 U/L 5-34 ALT 34 U/L BILIRUBIN, TOTAL 0.4 mg/dL 0.2-1.2 Jul 06, 2024 02:09 PM [facility] BASIC METABOLIC PANEL (non-fasting) Specimen Type: SERUM No comment entered. Ordering Provider: Brian REEVES Report Released Date/Time: Jul 01, 2024 03:56 PM Reporting Lab: [address] [address] Performing Lab: [address] [address] UREA NITROGEN 19 mg/dL 7-25 GLUCOSE 90 mg/dL 65-100 SODIUM 139 mmol/L 135-145 POTASSIUM 4.8 mmol/L 3.5-5.0 CHLORIDE 104 mmol/L 100-110 CO2 26 meq/L 20-30 CREATININE, Serum 1.04 mg/dL 0.50-1.40 eGFR(CKD-EPI 2020) 87 mL/min >60 Jul 06, 2024 02:09 PM [facility] CBC AND DIFF (AUTO) Specimen Type: BLOOD No comment entered. Ordering Provider: Brian REEVES Report Released Date/Time: Jul 01, 2024 03:56 PM Reporting Lab: [address] [address] Performing Lab: [address] [address] WBC 8.69 10*3/uL 4.50-11.00 RBC 5.01 10*6/uL [...] and tobacco- related health factors from the [place] facility where the Encounter took place. Current Smoking Status This section includes the most current smoking, or tobacco-related health factor, from the [place] facility where the Encounter took place. Date/Time Current Smoking Status Comment Gino hernadez Nov 19, 2023 10:00 AM VA-TOBACCO USER EVERY DAY [facility] Tobacco Use History This section includes a history of the smoking, or tobacco-related health factors, that were collected on or before the date of the Encounter. The data comes from the [place] facility where the Encounter took place. 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 [facility] Nov 19, 2023 10:00 AM VA-TOBACCO USE MED NO [place] [facility] [place] [facility] Nov 19, 2023 10:00 AM VA-TOBACCO USE WI 30 MIN OF WAKEUP [facility] [place] [facility] Nov 19, 2023 10:00 AM VA-TOBACCO USER EVERY DAY [facility] [place] [facility] February 10, 2023 01:00 PM ORYX ADMIT TOBACCO SCREEN YES [facility] [place] [facility] February 10, 2023 01:00 PM ORYX ADMIT TOBACCO USE CIGS GR 5D [facility] [place] [facility] February 10, 2023 01:00 PM ORYX DAILY TOBACCO 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 RECEIVED [facility] [place] [facility] February 10, 2023 01:00 PM ORYX DAILY TOBACCO MEDS ORDERED [facility] [place] [facility] Sep 02, 2022 08:00 AM VA-TOBACCO USE 30 YEARS OR MORE [facility] [place] [facility] Sep 02, 2022 08:00 AM VA-TOBACCO USE ADVICE [facility] [place] [facility] Sep 02, 2022 08:00 AM 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 [facility] [place] [facility] Sep 02, 2022 08:00 AM VA-TOBACCO USE MED NOTIFY PROVIDER [facility] [place] [facility] Sep 02, 2022 08:00 AM VA-TOBACCO USE WI 30 MIN OF WAKEUP [facility] [place] [facility] Sep 02, 2022 08:00 AM VA-TOBACCO USER EVERY DAY [facility] [place] [facility] Oct 12, 2016 09:13 AM QUIT TOBACCO USE 1-7 YEARS AGO [facility] [place] [facility] Sep 25, 2015 10:24 AM QUIT TOBACCO USE 1-7 YEARS AGO [facility] [place] [facility] Oct 05, 2013 03:03 PM QUIT TOBACCO USE 1-7 YEARS AGO PT HAS QUIT LES THAN A YEAR AGO. [facility] [place] [facility] Oct 05, 2013 03:03 PM QUIT TOBACCO USE IN PAST YEAR [facility] [place] [facility] Advance Directives: All historical and current Section Date Range: From patient's date of to the date document was created. This section includes ALL of a patient's completed or amended [place] Advance and Rescinded Directives. The entries below indicate that a directive exists for the patient, but an actual copy is not included with this document. The data comes from all [place] facilities. Date Advance Directives Provider Source Mar 06, 2023 ADVANCE DIRECTIVE SU PETTITEstephanie Hummel [facility] Mar 06, 2023 ADVANCE DIRECTIVE DISCUSSION SU PETTITEstephanie Hummel [facility] Apr 20, 2020 ADVANCE DIRECTIVE DISCUSSION ERUM MARTÍNEZ CB Feb 24, 2020 ADVANCE DIRECTIVE DISCUSSION POOL FUENTES [facility] Oct 30, 2016 ADVANCE DIRECTIVE KULDEEP FAM [facility] Radiology Reports: +/- 30 days of the [...] the Encounter. The data comes from all [place] treatment facilities. Date/Time Radiology Report Provider Source Jul 14, 2024 11:13 AM KNEE 3 VIEWS (LEFT ): JEYSON SANCHEZ [id number] -1975 M Exm Date: JUL 14, 2024@11:13 Req Phys: OPAL REEVES Pat Loc: CWM/NO/PACT 4 (Req'g Loc) Im Loc: [facility] 1 Service: [place] [address] (Case [id number] COMPLETE) KNEE 3 VIEWS (LEFT) (RAD Detailed) CPT:69445 Reason for Study: 5 yrs of left knee pain Clinical History: Report Status: Verified Date Reported: JUL 14, 2024 Date Verified: JUL 14, 2024 Spreader Box Operator E-Sig:/ES/LIA JACINTO JR Report: Study: AP [...] Primary Interpreting Staff: LIA JACINTO JR, Radiologist (Spreader Box Operator) /LIA CARPENTER JR [facility] Encounter Notes: All associated encounter notes This section contains the clinical notes associated to the Encounter. Date/Time Encounter Note(s) Provider Source Jul 22, 2024 12:00 AM NONVA CONSULT: LOCAL TITLE: COMMUNITY CARE-CONSULT RESULT NOTE STANDARD TITLE: NONVA CONSULT DATE OF NOTE: JUL 22, 2024 ENTRY DATE: AUG 17, 2024@08:20:38 AUTHOR: JAYCE GUALLPA EXP COSIGNER: URGENCY: STATUS: COMPLETED VistA Imaging - Scanned Document SCANNED DOCUMENT SIGNATURE NOT REQUIRED Electronically Filed: 08/17/2024 by: JAYCE BISWAS [facility] Jul 22, 2024 12:00 AM NONVA CONSULT: LOCAL TITLE: COMMUNITY CARE-CONSULT RESULT NOTE STANDARD TITLE: NONVA CONSULT DATE OF NOTE: JUL 22, 2024 ENTRY DATE: AUG 25, 2024@08:32:33 AUTHOR: ADA MCPHERSON EXP COSIGNER: URGENCY: STATUS: COMPLETED VistA Imaging - Scanned Document SCANNED DOCUMENT SIGNATURE NOT REQUIRED Electronically Filed: 08/25/2024 by: ADA ZAMORA [facility]
--- OUTSIDE RECORDS SUMMARY | 2024-08-31 21:19 | XMS_ITS ---
Author Name [facility] [place] Organization [facility] [place] Address [address] [place] [address] Care Team Providers Care Patcher Wood Welder Name Role Phone MARTIN BOWERS Primary Care Provider OPAL Mckay Primary Care Provider Unav ailable Selected Encounter This section includes the information on record at AL for the Encounter. Date/Time Encounter Type Encounter Description Reason Pro vider Source Aug 26, 2024 12:26 PM Outpatient Encounter OPTOMETRY IHE Encounter Template Text not used by AL Plan of Treatment: Future Appointments (+ 6 months) and Future Tests (+/- 45 days) The Plan of Treatment section includes future care activities for the patient from all [place] treatmentfacilities. This section includes future appointments and future orders which are active, pending or scheduled. Future Appointments This section includes appointments that were scheduled to occur 6 months from the date of the Encounter, up to a maximum of 20 appointments. The data comes from all [place] treatment facilities. Appointment Date/Time Appointment Type Appointme nt Facility Name Sep 20, 2024 03:00 PM AMBULATORY - MEDICINE [facility] [place] [facility] Nov 10, 2024 10:00 AM [facility] Active, Pending, and Scheduled Orders This section includes a listing of several types of active, pending, and scheduled orders, including clinic medications orders, diagnostic test orders, procedure orders and consult orders; where the start date of the order is 45 days before the date of the Encounter or 45 days after the date of theEncounter. The data comes from all AL treatment facilities. Test Date/Time Test Type Test Details Facility Name Jul 14, 2024 10:55 AM Consult Order REHAB MEDI CINE/NHM OUTPT Cons Director Market Intelligence's Choice [place] [facility] [place] [facility] Jul 19, 2024 11:25 AM Consult Order COMMUNITY CARE-DENTAL GENERAL Cons Director Market Intelligence's Choice [place] [facility] [place] [facility] Jul 22, 2024 08:51 AM Consult Order COMMUNITY CARE-DENTAL GENERAL Cons Director Market Intelligence's Choice [place] [facility] [place] [facility] Jul 22, 2024 01:51 PM Consult Order COMMUNITY CARE-DENTAL GENERAL Cons Director Market Intelligence's Choice [place] [facility] [place] [facility] Social History: Smoking Status (Most current) and Tobacco Use (All prior to encounter date) This section includes the most current, and the historical, smoking and tobacco- related health factors from the AL facility where the Encounter took place. Current Smoking Status This section includes the most current smoking, or tobacco-related health factor, from the AL facility where the Encounter took place. Date/Time Current Smoking Status Comment Gino hernadez Nov 19, 2023 10:00 AM VA-TOBACCO USE WI 30 MIN OF WAKEUP [facility] Tobacco Use History This section includes a history of the smoking, or tobacco-related health factors, that were collected on or before the date of the Encounter. The data comes from the AL facility where the Encounter took place. 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 [facility] [place] [facility] Nov 19, 2023 10:00 AM VA-TOBACCO USE MED NO [place] [facility] [place] [facility] Nov 19, 2023 10:00 AM VA-TOBACCO USE WI 30 MIN OF WAKEUP [place] [facility] [place] [facility] Nov 19, 2023 10:00 AM VA-TOBACCO USER EVERY DAY [facility] February 10, 2023 01:00 PM ORYX ADMIT TOBACCO SCREEN YES [facility] February 10, 2023 01:00 PM ORYX ADMIT TOBACCO USE CIGS GR 5D [facility] February 10, 2023 01:00 PM ORYX DAILY TOBACCO MACHINE FEEDER RAW STOCK RE[facility]IVED [facility] February 10, 2023 01:00 PM ORYX DAILY TOBACCO MEDS ORDERED [facility] Sep 02, 2022 08:00 AM VA-TOBACCO USE 30 YEARS OR MORE [facility] Sep 02, 2022 08:00 AM VA-TOBACCO USE ADVICE [facility] Sep 02, 2022 08:00 AM 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 [facility] Sep 02, 2022 08:00 AM VA-TOBACCO USE MED NOTIFY PROVIDER [facility] Sep 02, 2022 08:00 AM VA-TOBACCO USE WI 30 MIN OF WAKEUP [facility] Sep 02, 2022 08:00 AM VA-TOBACCO USER EVERY DAY [facility] Oct 12, 2016 09:13 AM QUIT TOBACCO USE 1-7 YEARS AGO [facility] Sep 25, 2015 10:24 AM QUIT TOBACCO USE 1-7 YEARS AGO [facility] Oct 05, 2013 03:03 PM QUIT TOBACCO USE 1-7 YEARS AGO PT HAS QUIT LES THAN A YEAR AGO. [facility] Oct 05, 2013 03:03 PM QUIT TOBACCO USE IN PAST YEAR [facility] Advance Directives: All historical and current Section Date Range: From patient's date of to the date document was created. This section includes ALL of a patient's completed or amended VA Advance and Rescinded Directives. The entries below indicate that a directive exists for the patient, but an actual copy is not included with this document. The data comes from all [place] facilities. Date Advance Directives Provider Source Mar 06, 2023 ADVANCE DIRECTIVE DISCUSSION BEV PETTIT [facility] Mar 06, 2023 ADVANCE DIRECTIVE BEV PETTIT [place] [facility] [facility] Apr 20, 2020 ADVANCE DIRECTIVE DISCUSSION [facility] Feb 24, 2020 ADVANCE DIRECTIVE DISCUSSION [facility] Oct 30, 2016 ADVANCE DIRECTIVE KULDEEP FAM [place] [facility] Encounter Notes: All associated encounter notes This section contains the clinical notes associated to the Encounter. Date/Time Encounter Note(s) Provider Source Aug 26, 2024 12:27 PM LETTERS: LOCAL TITLE: PATIENT LETTER (B) STANDARD TITLE: LETTERS DATE OF NOTE: AUG 26, 2024@12:27 ENTRY DATE: AUG 26, 2024@12:27:42 AUTHOR: AUDI HERNÁNDEZ SA COSIGNER: URGENCY: STATUS: COMPLETED AUG 26, 2024 JEYSON SANCHEZ [address] [place] [id number] Dear JEYSON SANCHEZ Thank you for choosing the Department of [facility] ([place]) [facility] as your primary choice for health care. As a partner in your health care, we are contacting you in writing since we have been unsuccessful in our attempts to reach you to date. We want to assure you we are doing everything possible to schedule Veterans for their VA medical care appointments. Our records indicate you are due for an appointment in OPTOMETRY. If you would like to be seen, please contact [facility] at ext. [phone] to schedule an appointment. Thank you for your service to our nation, and we look forward to hearing from you soon. Sincerely, [facility] [address] [facility] [address] [place] [address] [place] [address] [phone] [facility] [address] [place] [address] [place] [address] ext. [phone] [facility] [address] [facility] [address] [place] [address] [place] [address] ext. [phone] AUDI HERNÁNDEZ [facility] Aug 26, 2024 12:26 PM ADMINISTRATIVE NOTE: LOCAL TITLE: ADMINISTRATIVE RECALL NOTE STANDARD TITLE: ADMINISTRATIVE NOTE DATE OF NOTE: AUG 26, 2024@12:26 ENTRY DATE: AUG 26, 2024@12:26:29 AUTHOR: AUDI HERNÁNDEZ SA EXP COSIGNER: URGENCY: STATUS: COMPLETED RTC orders: Unable to contact patient: Attempts to contact: 1st attempt: Left voicemail 2nd attempt: Letter mailed 3rd attempt: 4th attempt: Called, LM on to schedule appointment. Mailed letter. When the calls back please schedule for NHM/OPTOMETRY/FRANCIS, with a PID of 08/24/2024. Provided specialties clinic call back phone number [phone] Ext: [phone] MARIELLEA will disposition on 09/10/2024. /es/ AUDI HERNÁNDEZ Signed: 08/26/2024 12:27 AUDI HERNÁNDEZ [facility]
--- OUTSIDE RECORDS SUMMARY | 2024-08-31 21:19 | XMS_ITS ---
Author Name [facility] [place] Organization [facility] [place] Address [address] [place] [address] Care Team Providers Care Heel Brusher Name Role Phone MARTIN BOWERS Primary Care Provider OPAL Mckay Primary Care Provider Unav ailable Selected Encounter This section includes the information on record at [place] for the Encounter. Date/Time Encounter Type Encounter Description Reason Pro vider Source Aug 23, 2024 02:42 PM Outpatient Encounter PAIN CLINIC IHE Encounter Template Text not used by [place] Plan of Treatment: Future Appointments (+ 6 months) and Future Tests (+/- 45 days) The Plan of Treatment section includes future care activities for the patient from all [place] treatmentfacilities. This section includes future appointments and future orders which are active, pending or scheduled. Future Appointments This section includes appointments that were scheduled to occur 6 months from the date of the Encounter, up to a maximum of 20 appointments. The data comes from all [place] treatment facilities. Appointment Date/Time Appointment Type Appointme nt Facility Name Sep 20, 2024 03:00 PM AMBULATORY - MEDICINE [facility]L [place] [facility] Nov 10, 2024 10:00 AM AM[facility]ULAT[facility] [place] [facility] Active, Pending, and Scheduled Orders This section includes a listing of several types of active, pending, and scheduled orders, including clinic medications orders, diagnostic test orders, procedure orders and consult orders; where the start date of the order is 45 days before the date of the Encounter or 45 days after the date of theEncounter. The data comes from all [place] treatment facilities. Test Date/Time Test Type Test Details Facility Name Jul 14, 2024 10:55 AM Consult Order REHAB MEDI CINE/NHM OUTPT Cons Prepress Operator's Choice [place] [facility] [place] [facility] Jul 19, 2024 11:25 AM Consult Order COMMUNITY CARE-DENTAL GENERAL Cons Prepress Operator's Choice [place] [facility] [place] [facility] Jul 22, 2024 08:51 AM Consult Order COMMUNITY CARE-DENTAL GENERAL Cons Prepress Operator's Choice [place] [facility] [place] [facility] Jul 22, 2024 01:51 PM Consult Order COMMUNITY CARE-DENTAL GENERAL Cons Prepress Operator's Choice [facility] Social History: Smoking Status (Most current) and Tobacco Use (All prior to encounter date) This section includes the most current, and the historical, smoking and tobacco- related health factors from the [place] facility where the Encounter took place. Current Smoking Status This section includes the most current smoking, or tobacco-related health factor, from the [place] facility where the Encounter took place. Date/Time Current Smoking Status Comment Gino hernadez Nov 19, 2023 10:00 AM VA-TOBACCO USER EVERY DAY [facility] Tobacco Use History This section includes a history of the smoking, or tobacco-related health factors, that were collected on or before the date of the Encounter. The data comes from the [place] facility where the Encounter took place. Date/Time Smoking Status/Tobac co Use Comment Facility Nov 19, 2023 10:00 AM VA-TOBACCO USE ADVICE [place] [facility] [place] [facility] Nov 19, 2023 10:00 AM VA-TOBACCO USE MACHINE BOBBIN WINDER NO [place] [facility] [place] [facility] Nov 19, 2023 10:00 AM VA-TOBACCO USE MED NO [place] [facility] [place] [facility] Nov 19, 2023 10:00 AM VA-TOBACCO USE WI 30 MIN OF WAKEUP [place] [facility] [place] [facility] Nov 19, 2023 10:00 AM VA-TOBACCO USER EVERY DAY [facility] February 10, 2023 01:00 PM ORYX ADMIT TOBACCO SCREEN YES [facility] February 10, 2023 01:00 PM ORYX ADMIT TOBACCO USE CIGS GR 5D [facility] [place] [facility] February 10, 2023 01:00 PM ORYX DAILY TOBACCO MACHINE BOBBIN WINDER RECEIVED [facility] February 10, 2023 01:00 PM ORYX DAILY TOBACCO MEDS ORDERED [facility] Sep 02, 2022 08:00 AM VA-TOBACCO USE 30 YEARS OR MORE [facility] Sep 02, 2022 08:00 AM VA-TOBACCO USE ADVICE [facility] Sep 02, 2022 08:00 AM VA-TOBACCO USE MACHINE BOBBIN WINDER YES [facility] Sep 02, 2022 08:00 AM VA-TOBACCO USE MED NOTIFY PROVIDER [facility] Sep 02, 2022 08:00 AM VA-TOBACCO USE WI 30 MIN OF WAKEUP [facility] Sep 02, 2022 08:00 AM VA-TOBACCO USER EVERY DAY [facility] Oct 12, 2016 09:13 AM QUIT TOBACCO USE 1-7 YEARS AGO [facility] Sep 25, 2015 10:24 AM QUIT TOBACCO USE 1-7 YEARS AGO [facility] Oct 05, 2013 03:03 PM QUIT TOBACCO USE 1-7 YEARS AGO PT HAS QUIT LES THAN A YEAR AGO. [facility] Oct 05, 2013 03:03 PM QUIT TOBACCO USE IN PAST YEAR [facility] Advance Directives: All historical and current Section Date Range: From patient's date of to the date document was created. This section includes ALL of a patient's completed or amended VA Advance and Rescinded Directives. The entries below indicate that a directive exists for the patient, but an actual copy is not included with this document. The data comes from all [place] facilities. Date Advance Directives Provider Source Mar 06, 2023 ADVANCE DIRECTIVE BEV PETTIT [place] [facility] [facility] Mar 06, 2023 ADVANCE DIRECTIVE DISCUSSION BEV PETTIT [place] [facility] [facility] Apr 20, 2020 ADVANCE DIRECTIVE DISCUSSION [facility] Feb 24, 2020 ADVANCE DIRECTIVE DISCUSSION POOL [facility] Oct 30, 2016 ADVANCE DIRECTIVE KULDEEP FAM [place] [facility] Encounter Notes: All associated encounter notes This section contains the clinical notes associated to the Encounter. Date/Time Encounter Note(s) Provider Source Aug 23, 2024 02:44 PM LETTERS: LOCAL TITLE: PATIENT LETTER (B) STANDARD TITLE: LETTERS DATE OF NOTE: AUG 23, 2024@14:44 ENTRY DATE: AUG 23, 2024@14:44:17 AUTHOR: ROM MOJICA COSIGNER: URGENCY: STATUS: COMPLETED [facility] Toll Free Number ext [phone] [facility] scheduling can be reached at ext. [phone] [facility]- ext. [phone] [facility]- ext. [phone] [facility]- ext. [phone] AUG 23, 2024 JEYSON SANCHEZ [address] [place] [id number] Dear JEYSON SANCHEZ Thank you for choosing the Department of [facility] ([place]) [facility] as your primary choice for health care. As a partner in your health care, we are contacting you in writing since we have been unsuccessful in our attempts to reach you to date. We want to assure you we are doing everything possible to schedule Veterans for their VA medical care appointments. Our records indicate you are due for an appointment in PAIN CLINIC. If you would like to be seen, please contact [facility] at ext. [phone] to schedule an appointment. Thank you for your service to our nation, and we look forward to hearing from you soon. Sincerely, [facility] [address] [place] [address] [place] [address] ext [phone] [facility] 25 [facility] [address] [place] [address] [place] [address] ext. [phone] [facility] [address] [facility] [address] [place] [address] [place] [address] ext. [phone] ROM MOJICA [facility] [place] [facility] Aug 23, 2024 02:42 PM CLERICAL NOTE: LOCAL TITLE: APPOINTMENT NO SHOW STANDARD TITLE: CLERICAL NOTE DATE OF NOTE: AUG 23, 2024@14:42 ENTRY DATE: AUG 23, 2024@14:42:37 AUTHOR: ROM MOJICA COSIGNER: URGENCY: STATUS: COMPLETED Patient Name: JEYSON SANCHEZ Patient SSN: [id number] Date and time of Appointment No show : 08/23/24 14:42 PATIENT PHONE - PHONE NUMBER [CELLULAR] - Patient's medical record was reviewed. Follow-up actions were determined and initiated: Please check/complete as applies: [X]Telephoned Directly [ ]Re-scheduled for next available appt [X]Sent a N0-show letter ( must call for appointment) [ ]Other (Emergent/Overbook, etc.): Additional Comments: VET N/S APPT 08/10/2024, 1ST CONTACT ATTEMPT, MAILED N/S LETTER, 2ND ATTEMPT, LVM, 3RD ATTEMPT LVM 08/23/2024 , 4TH ATTEMPT MAILED LETTER 08/23/2024 Future Clinic Visits 08/24/2024 11:30 NHM/OPTOMETRY/FRANCIS/ 09/20/2024 15:00 CWM/NO/PACT 4 11/10/2024 10:00 CWM/NO/PACT 4 /es/ ROM MOJICA ADVANCED MANAGER HAIR Signed: 08/23/2024 14:44 ROM MOJICA [facility] [place] [facility]
--- OUTSIDE RECORDS SUMMARY | 2024-08-31 21:19 | XMS_ITS ---
Author Name [facility] [place] Organization [place] Address [address] [place] [address] Care Team Providers Care Store Shopper Name Role Phone MARTIN BOWERS Primary Care Provider OPAL Mckay Primary Care Provider Unav ailable Selected Encounter This section includes the information on record at [place] for the Encounter. Date/Time Encounter Type Encounter Description Reason Pro vider Source Aug 27, 2024 08:18 AM Outpatient Encounter TELEPHONE CASE MANAGEMENT IHE Encounter Template Text not used by [...] 20, 2024 03:00 PM AMBULATORY - MEDICINE [place] [facility] Nov 10, 2024 10:00 AM AMBULATORY - MEDICINE [facility] Active, Pending, and Scheduled Orders This section includes a listing of several types of active, pending, and scheduled orders, including clinic medications orders, diagnostic test orders, procedure orders and consult orders; where the start date of the order is 45 days before the date of the Encounter or 45 days after the date of theEncounter. The data comes from all [place] treatment facilities. Test Date/Time Test Type Test Details Facility Name Jul 14, 2024 10:55 AM Consult Order REHAB MEDI CINE/NHM OUTPT Cons Farm Demonstrator's Choice [place] [facility] Jul 19, 2024 11:25 AM Consult Order COMMUNITY CARE-DENTAL GENERAL [employer] Farm Demonstrator's Choice [place] [facility] Jul 22, 2024 08:51 AM Consult Order COMMUNITY CARE-DENTAL GENERAL Cons Farm Demonstrator's Choice [place] [facility] Jul 22, 2024 01:51 PM Consult Order COMMUNITY CARE-DENTAL GENERAL Cons Farm Demonstrator's [facility] [place] [facility] Social History: Smoking Status (Most current) and [...] 2023 10:00 AM VA-TOBACCO USER EVERY DAY [facility] Tobacco Use History This section includes a history of the smoking, or tobacco-related health factors, that were collected on or before the date of the Encounter. The data comes from the [place] facility where the Encounter took place. Date/Time Smoking Status/Tobac co Use Comment Facility Nov 19, 2023 10:00 AM VA-TOBACCO USE ADVICE [place] [facility] Nov 19, 2023 10:00 AM VA-TOBACCO USE PUBLIC SAFETY TEACHER NO [place] [facility] Nov 19, 2023 10:00 AM VA-TOBACCO USE MED NO [place] [facility] Nov 19, 2023 10:00 AM VA-TOBACCO USE WI 30 MIN OF WAKEUP [place] [facility] Nov 19, 2023 10:00 AM VA-TOBACCO USER EVERY DAY [facility] February 10, 2023 01:00 PM ORYX ADMIT TOBACCO SCREEN YES [facility] February 10, 2023 01:00 PM ORYX ADMIT TOBACCO USE CIGS GR 5D [facility] February 10, 2023 01:00 PM ORYX DAILY TOBACCO PUBLIC SAFETY TEACHER [facility] February 10, 2023 01:00 PM ORYX DAILY TOBACCO MEDS ORDERED [facility] Sep 02, 2022 08:00 AM VA-TOBACCO USE 30 YEARS OR MORE [facility] Sep 02, 2022 08:00 AM VA-TOBACCO USE ADVICE [facility] Sep 02, 2022 08:00 AM VA-TOBACCO USE PUBLIC SAFETY TEACHER YES [facility] Sep 02, 2022 08:00 AM VA-TOBACCO USE MED NOTIFY PROVIDER [facility] Sep 02, 2022 08:00 AM VA-TOBACCO USE WI 30 MIN OF WAKEUP [facility] Sep 02, 2022 08:00 AM VA-TOBACCO USER EVERY DAY [facility] Oct 12, 2016 09:13 AM QUIT TOBACCO USE 1-7 YEARS AGO [facility] Sep 25, 2015 10:24 AM QUIT TOBACCO USE 1-7 YEARS AGO [facility] Oct 05, 2013 03:03 PM QUIT TOBACCO USE 1-7 YEARS AGO PT HAS QUIT LES THAN A YEAR AGO. [facility] Oct 05, 2013 03:03 PM QUIT TOBACCO USE IN PAST YEAR [facility] Advance Directives: All historical and current [...] 06, 2023 ADVANCE DIRECTIVE SU PETTITEstephanie Hummel [place] CN[place] [facility] Mar 06, 2023 ADVANCE DIRECTIVE DISCUSSION HODANBEV Hummel [place] [facility] Apr 20, 2020 ADVANCE DIRECTIVE DISCUSSION QASIM MARTÍNEZE Brian [facility] Feb 24, 2020 ADVANCE DIRECTIVE DISCUSSION POOL FUENTES [facility] Oct 30, 2016 ADVANCE DIRECTIVE KULDEEP FAM [facility] Encounter Notes: All associated encounter notes This section contains the clinical notes associated to the Encounter. Date/Time Encounter Note(s) Provider Source Aug 27, 2024 08:18 AM TRANSFER SUMMARIZA TION NOTE: LOCAL TITLE: MATHEMATICAL TECHNICIAN/OCC/HOSPITAL NOTIFICATION NOTE STANDARD TITLE: TRANSFER SUMMARIZATION NOTE DATE OF NOTE: AUG 27, 2024@08:18 ENTRY DATE: AUG 27, 2024@08:18:30 AUTHOR: BLESSING PABLO EXP COSIGNER: URGENCY: STATUS: COMPLETED MATHEMATICAL TECHNICIAN/OCC/HOSPITAL NOTIFICATION NOTE Has ADDENDA was in the Emergency room at [place] for a bleeding left pinky. no addtional informaton was provided on the discharge list provided by the hospital. He was discharged same day home. /travon PABLO Registered Nurse Ged Tutor Signed: 08/27/2024 08:20 Receipt Acknowledged By: 08/27/2024 14:00 /brown/ OPAL REEVES MD PHYSICIAN 08/27/2024 10:25 /brown/ Clarita Donahue RN Primary Care Staff Nurse 08/27/2024 ADDENDUM STATUS: COMPLETED The presentation for his pinky bleeding was on 08/25. /travon PABLO Registered Nurse Ged Tutor Signed: 08/27/2024 08:22 BLESSING PABLO [facility]
--- OUTSIDE RECORDS SUMMARY | 2024-08-31 21:19 | XMS_ITS | Encounter Summary ---
Author Name [facility] [place] Organization [place] Address [address] [place] [id number] Care Team Providers Care Private Duty Aide Name Role Phone MARTIN BOWERS Primary Care Provider OPAL Mckay Primary Care Provider Unajerome ailable Selected Encounter This section includes the information on record at [place] for the Encounter. Date/Time Encounter Type Encounter Description Reason Pro vider Source IHE Encounter Template Text not used by [place] Advance Directives: All historical and current Section Date Range: From patient's date of to the date document was created. This section includes ALL of a patient's completed or amended [place] Advance and Rescinded Directives. The entries below indicate that a directive exists for the patient, but an actual copy is not included with this document. The data comes from all [place] facilities. Date Advance Directives Provider Source Mar 06, 2023 ADVANCE DIRECTIVE BEV PETTIT [place] [facility] Mar 06, 2023 ADVANCE DIRECTIVE DISCUSSION BEV PETTIT [place] [facility] Apr 20, 2020 ADVANCE DIRECTIVE DISCUSSION ERUM MARTÍNEZ [facility] Feb 24, 2020 ADVANCE DIRECTIVE DISCUSSION POOL FUENTES [facility] Oct 30, 2016 ADVANCE DIRECTIVE KULDEEP FAM [place] [facility]
--- OUTSIDE RECORDS SUMMARY | 2024-08-31 21:46 | XMS_ITS | Encounter Summary ---
Author Name [facility] [place] Organization [place] Address [address] [place] [address] Care Team Providers Care Field Hockey And Lacrosse Coach Name Role Phone ELISSA MARTIN Primary Care Provider OPAL Mckay Primary Care Provider Unav ailable Selected Encounter This section includes the information on record at [place] for the Encounter. Date/Time Encounter Type Encounter Description Reason Provider Source Sep 11, 2023 11:15 AM PSYTX W PT 30 MINUTES [facility] - IND ICD-10-CM F25.0 Schizoaffective disorder, bipolar type LALO GARCIA [facility] Encounter Template Text not used by [place] Assessments - Encounter Diagnoses This section includes the primary and secondary diagnoses documented for the Encounter. Date/Time Primary/Secondary Diagnosis Diagnosis Name Provider Source Sep 11, 2023 12:41 PM PRIMARY Schizoaffective disorder, bipolar type LALO GARCIA [facility] Sep 11, 2023 12:41 PM SECONDARY Alcohol dependence with alcohol-induced mood disorder LALO GARCIA [facility] Plan of Treatment: Future Appointments (+ 6 months) and Future Tests (+/- 45 days) The Plan of Treatment section includes future care activities for the patient from all [place] treatmentfacilities. This section includes future appointments and future orders which are active, pending or scheduled. Future Appointments This section includes appointments that were scheduled to occur 6 months from the date of the Encounter, up to a maximum of 20 appointments. The data comes from all [place] treatment facilities. Appointment Date/Time Appointment Type Appointme nt Facility Name Sep 26, 2023 02:30 PM [facility] Nov 19, 2023 09:30 AM AMBULATORY - [facility] Nov 19, 2023 10:00 AM AMBULATORY - [facility] Nov 19, 2023 02:00 PM AMBULATORY - MEDICINE [facility] Dec 03, 2023 10:30 AM AMBULATORY - PSYCHIATRY [facility] Social History: Smoking Status (Most current) and Tobacco Use (All prior to encounter date) This section includes the most current, and the historical, smoking and tobacco- related health factors from the [place] facility where the Encounter took place. Current Smoking Status This section includes the most current smoking, or tobacco-related health factor, from the [place] facility where the Encounter took place. Date/Time Current Smoking Status Comment Facil it February 10, 2023 01:00 PM ORYX ADMIT TOBACCO SCREEN YES [facility] Tobacco Use History This section includes a history of the smoking, or tobacco-related health factors, that were collected on or before the date of the Encounter. The data comes from the [place] facility where the Encounter took place. Date/Time Smoking Status/Tobac co Use Comment Facility February 10, 2023 01:00 PM ORYX ADMIT TOBACCO USE CIGS GR 5D [facility] February 10, 2023 01:00 PM ORYX DAILY TOBACCO RETAIL STORE CLERK [facility]CEIVED [facility] February 10, 2023 01:00 PM ORYX DAILY TOBACCO MEDS ORDERED [facility] Sep 02, 2022 08:00 AM VA-TOBACCO USE 30 YEARS OR MORE [facility] Sep 02, 2022 08:00 AM VA-TOBACCO USE ADVICE [facility] Sep 02, 2022 08:00 AM VA-TOBACCO USE RETAIL STORE CLERK YES [facility] Sep 02, 2022 08:00 AM VA-TOBACCO USE MED NOTIFY PROVIDER [facility] Sep 02, 2022 08:00 AM VA-TOBACCO USE WI 30 MIN OF WAKEUP [facility] Sep 02, 2022 08:00 AM VA-TOBACCO USER EVERY DAY [facility] Oct 12, 2016 09:13 AM QUIT TOBACCO USE 1-7 YEARS AGO [facility] Sep 25, 2015 10:24 AM QUIT TOBACCO USE 1-7 YEARS AGO [facility] Oct 05, 2013 03:03 PM QUIT TOBACCO USE 1-7 YEARS AGO PT HAS QUIT LES THAN A YEAR AGO. [facility] Oct 05, 2013 03:03 PM QUIT TOBACCO USE IN PAST YEAR [facility] Advance Directives: All historical and current Section Date Range: From patient's date of to the date document was created. This section includes ALL of a patient's completed or amended [place] Advance and Rescinded Directives. The entries below indicate that a directive exists for the patient, but an actual copy is not included with this document. The data comes from all [place] facilities. Date Advance Directives Provider Source Mar 06, 2023 ADVANCE DIRECTIVE BEV PETTIT [facility] Mar 06, 2023 ADVANCE DIRECTIVE DISCUSSION BEV PETTIT [facility] Apr 20, 2020 ADVANCE DIRECTIVE DISCUSSION ERUM MARTÍNEZ [facility] Feb 24, 2020 ADVANCE DIRECTIVE DISCUSSION POOL FUENTES [facility] Oct 30, 2016 ADVANCE DIRECTIVE KULDEEP FAM [facility] Encounter Notes: All associated encounter notes This section contains the clinical notes associated to the Encounter. Date/Time Encounter Note(s) Provider Source Sep 12, 2023 12:45 PM ADMINISTRATIVE NOTE: LOCAL TITLE: ADMINISTRATIVE RECALL NOTE STANDARD TITLE: ADMINISTRATIVE NOTE DATE OF NOTE: SEP 12, 2023@12:45 ENTRY DATE: SEP 12, 2023@12:45:42 AUTHOR: SHELLI DAVE EXP COSIGNER: URGENCY: STATUS: COMPLETED ADMINISTRATIVE RECALL NOTE Has ADDENDA RTC orders: Unable to contact patient: Attempts to contact: 1st attempt: Left voicemail 2nd attempt: Letter mailedDisposition onSep 3rd attempt: 4th attempt: /travon DAVE SOFTWARE DEVELOPMENT MANAGER Signed: 09/12/2023 12:53 10/09/2023 ADDENDUM STATUS: COMPLETED RTC orders: Unable to contact patient: Attempts to contact: 1st attempt: Left voicemail 2nd attempt: Letter mailedDisposition onSep 3rd attempt: left vm 4th attempt: /brown/ SHELLI DAVE SOFTWARE DEVELOPMENT MANAGER Signed: 10/09/2023 10:12 SHELLI DAVE [place] [facility] Sep 11, 2023 12:28 PM PSYCHOLOGY NOTE: LOCAL TITLE: PSYCHOLOGY NOTE STANDARD TITLE: PSYCHOLOGY NOTE DATE OF NOTE: SEP 11, 2023@12:28 ENTRY DATE: SEP 11, 2023@12:28:40 AUTHOR: LALO GARCIA EXP COSIGNER: URGENCY: STATUS: COMPLETED PSYCHOLOGY NOTE Has ADDENDA Date of session: Aug Duration of session: 20 Diagnosis: AUD, reportedly in remission, S/P TBI, Schizo-affective DO. Presenting Problem ( report): [facility] visit to straighten out services: when he left [place] he didn't take medications with him, and now finds that both his court cases are likely to require indication that he's following up on needed MH care. Course of Session: He requested documentation for the courts that he's doing what's required, but since that hasn't occurred yet, we're setting up a 3 week follow-up to look at that question. Specific mental health/clinical interventions: Treatment planning. Reports staying sober since admission for detox last summer. Mental Status/Clinical Impression: 1. Appearance (grooming, attire, apparent age) within normal limits: Appropriately dressed and groomed. 2. Thought content was organized and goal directed: Yes 3. Speech was coherent and unimpaired: Yes 4. Affect was appropriate and unremarkable: I'm trying to get things straightened out . Of note: he thinks the diagnosis of Schizo-affective DO is accurate, and he experiences ongoing difficulties with his thinking. 5. Demeanor was calm, with no signs of agitation or restlessness: 6. Problems with sleep or appetite reported: 7. Psychosis (hallucinations or delusions): Date of next planned contact: 3 weeks /brown/ LALO GARCIA, PhD Clinical Psychologist Signed: 09/11/2023 12:41 09/29/2023 ADDENDUM STATUS: COMPLETED Note 's no show appt. Please keep public relations writer apprised of 's attempt to resume MH tx as his sourcing consultant initiated contact to facilitate diversion disposition via [facility] services. Feel free to refer [place] to public relations writer for tx status letter for court. /brown/ MORIA RODRIGUEZ LCSW LICENSED CLINICAL CASE FILLER Signed: 09/29/2023 11:57 LALO GARCIA [place] [facility] [facility]
--- OUTSIDE RECORDS SUMMARY | 2024-08-31 21:46 | XMS_ITS | Continuity of Care Document ---
Author Name DOD[facility] Organization [facility] Care Team Providers Care Certified Medical Coding Specialist Name Role Phone [facility] Unavailable Unavailable Problems Combined list of problems from Department of Defense and Veterans Affairs facilities. It does not include entries that were removed or entered in error. Problem Status Onset Date Problem Type Date of Resolution Comments Source Asthma (SNOMED CT 812303484) Active 014 Condition [facility] Left knee pain (SNOMED CT 046957474465527) Active 014 Condition Jul 14, 2024 Entered [...] red indications on his peak flow met [facility] Blood Pressure Isolated Elevated Inactive Condition [facility] visit for: screening exam Inactive Condition [facility] Acute back pain - lumbar Active Condition CT [facility] [place] [facility] Alcohol abuse Active Condition Nov Entered By: KOLBY SCHWARZ Comment: Rehab x 2 [facility] Alcohol dependence Active Condition [facility] Asthma Active Condition [facility] Bipolar disorder Active Condition [facility] Bipolar II disorder Active Condition [facility] Bipolar II disorder, most recent episode hypomanic Active Condition [facility] Cannabis dependence [facility] [place] [facility] Exposure to potentially hazardous substance Active Condition Nov 12, 2023 Entered By: TESS SMALLWOOD Comment: Original PORTIA Screen completed on 09/02/22 [facility] [place] [facility] Exposure to Potentially Hazardous Substance ([facility] [id number]) Active Condition [facility] Family history of malignant neoplasm of colon over age 50 Active Condition Jul 14, 2024 Entered By: DARLENE REEVES Comment: FH of colon cancer in Father, father alive age [address] [facility] [place] [facility] Gastroesophageal reflux disease Active Condition [facility] HLD - Hyperlipidemia Active Condition [facility] Homeless [facility] [place] [facility] HTN-Hypertension (SCT 50059768) Active Condition [facility] Hyperlipidemia (SCT 59465864) Active Condition [facility] Hypertension Active Condition Jul 14, 2024 Entered By: DARLENE REEVES Comment: vet resumed using amlodipine 5/ BP at home improving [facility] Inguinal hernia Active Condition Jun 09, 2024 Entered By: DARLENE REEVES Comment: vet had CT confirming left inguinal hernia February 2023 [facility] Lack of Housing (ICD-9-CM V60.0) Active Condition [facility] Nicotine dependence Active Condition [facility] Pain in left knee (SNOMED CT 582188758891485) Active Condition Nov 27 8 Entered By: KOLBY SCHWARZ Comment: Arthroscopic surgeries x 2 [facility] Positive PPD Active Condition Sep 02, 2022 Entered By: FABRICIO PRINCE Comment: Status post 1 year of treatment with tb meds [facility] Schizoaffective disorder, bipolar type Active Condition [facility] Severe alcohol dependence Active Condition [facility] Tinea unguium Active Condition [facility] [...] lenses Active Diagnosis [facility] [place] [facility] Diagnosis: ICD-10-CM H25.013 Cortical age-related cataract, bilateral Active Diagnosis [facility] UBALDO RANGEL [facility] Diagnosis: ICD-10-CM J45.998 Other asthma Active Diagnosis [facility] Diagnosis: ICD-10-CM Z59.01 Sheltered homelessness Active Diagnosis [facility]N CHELSEAYARY [facility] Diagnosis: ICD-10-CM F12.20 Cannabis dependence, uncomplicated Active Diagnosis [facility] Diagnosis: ICD-10-CM F31.9 Bipolar disorder, unspecified Active Diagnosis [facility] Diagnosis: ICD-10-CM Z13.6 Encounter for screening for cardiovascular disorders Active Diagnosis [facility] Diagnosis: ICD-10-CM K40.91 Unilateral inguinal hernia, w/o obst or gangrene, recurrent Active Diagnosis [facility] Diagnosis: ICD-10-CM K45.8 Oth abdominal hernia without obstruction or gangrene Active Diagnosis [facility] Diagnosis: ICD-10-CM K08.9 Disorder of teeth and supporting structures, unspecified Active Diagnosis [facility] Medications Combined list of outpatient medications from Department of Defense and [facility] Affairs facilities.Medications provided include 1) outpatient medications from the last 15 months, and 2) patient-reported medications. Medication Details Route Status Patient Instructions Prescription Expires Prescription Number Last Dispense Date Ordering Provider Order Date Order Qty Source ACETAMINOPH EN 500MG TAB TAKE TWO TABLETS BY MOUTH TWICE DAILY NEEDED ORAL ACTIVE 06/10/2025 [id number] AMELIA HARTLEY 2023 100 [facility] ACETAMINOPH EN 500MG TAB TAKE TWO TABLETS BY MOUTH TWICE DAILY NEEDED ORAL DISCONT INUED 04/01/2024 [id number] 4 DESIRAE PEREZ 2022 60 [facility] [place] [facility] ALBUTEROL 90MCG/ACTUA T (CFC-F) INHL,ORAL,8 .5GM DOSE COUNTER INHALE 2 PUFFS BY MOUTH FOUR TIMES DAILY NEEDED RESPIR ATORY (INHAL ATION) ACTIVE 06/10/2025 [id number] 4 AMELIA HARTLEY 2023 3 [facility] ALBUTEROL 90MCG/ACTUA T (CFC-F) INHL,ORAL,8 .5GM DOSE COUNTER INHALE 2 PUFFS BY MOUTH FOUR TIMES DAILY NEEDED FOR BRONCHOS PASM RESPIR ATORY (INHAL ATION) DISCONT INUED (EDIT) 06/19/2024 [id number] 3 RA SARAY LOWRY [address] [facility] AMLODIPINE BESYLATE 5MG TAB TAKE ONE TABLET BY MOUTH ONCE DAILY FOR BLOOD PRESSURE /HEART, DO NOT TAKE WITH GRAPEFRU IT JUICE ORAL ACTIVE 06/10/2025 [id number] 4 AMELIA HARTLEY [address] [facility] [place] INDOMETHACI N 50MG CAP TAKE ONE CAPSULE BY MOUTH TWICE DAILY NEEDED FOR GOUT ORAL ACTIVE 07/02/2025 [id number] 4 AMELIA HARTLEY [address] [facility] LIDOCAINE 5% PATCH APPLY 1 PATCH TOPICALL Y ONCE DAILY FOR NERVE PAIN (LEAVE PATCH ON FOR 12 HOURS, THEN REMOVE PATCH) TOPICA L SUSPEND ED 07/29/2025 [id number] 4 AMELIA HARTLEY [address] [facility] METHOCARBAM OL 750MG TAB TAKE ONE TABLET BY MOUTH THREE TIMES DAILY NEEDED ORAL 04/01/2024 [id number] 4 DESIRAE PEREZ 2022 45 [facility] MULTIVITAMI NS W/MINERALS CAP/TAB TAKE ONE CAP/TAB BY MOUTH ONCE DAILY ORAL ACTIVE 06/10/2025 [id number] 4 AMELIA HARTLEY 2023 100 [facility] OLANZAPINE 5MG TAB TAKE ONE TABLET BY MOUTH AT BEDTIME ORAL DISCONT INUED BY PRINCE R 11/19/2024 [id number] 4 JAMES LONG MD [address] [facility] OLANZAPINE 5MG TAB TAKE ONE TABLET BY MOUTH AT BEDTIME ORAL DISCONT INUED (EDIT) 08/08/2024 [id number] 4 JAMES LONG MD 2022 30 [facility] OLANZAPINE 5MG TAB TAKE ONE TABLET BY MOUTH AT BEDTIME ORAL DISCONT INUED (EDIT) 07/17/2024 [id number] 3 JAMES LONG MD 2022 30 [facility] OMEPRAZOLE 20MG CAP,EC TAKE 1 CAPSULE BY MOUTH EVERY MORNING 30 MINUTES BEFORE BREAKFAS T ORAL ACTIVE AMELIA HARTLEY 2023 [facility] QUETIAPINE FUMARATE 100MG TAB TAKE ONE TABLET BY MOUTH AT BEDTIME AND TAKE ONE TABLET AT BEDTIME NEEDED AND TAKE ONE TABLET AT BEDTIME NEEDED SCHIZOAF FECTIVE BIPOLAR/ SLEEP ORAL ACTIVE 07/29/2025 [id number] 4 JAMES LONG MD 2023 90 [facility] QUETIAPINE FUMARATE 100MG TAB TAKE ONE TABLET BY MOUTH AT BEDTIME AND TAKE ONE TABLET AT BEDTIME NEEDED AND TAKE ONE TABLET AT BEDTIME NEEDED SCHIZOAF FECTIVE BIPOLAR/ SLEEP ORAL DISCONT INUED (EDIT) 06/18/2025 [id number] 4 JAMES LONG MD [address] [facility] TRAZODONE HCL 100MG TAB TAKE ONE TABLET BY MOUTH AT BEDTIME AND TAKE ONE-HALF TABLET AT BEDTIME NEEDED SLEEP ORAL ACTIVE 07/29/2025 [id number] 4 JAMES LONG MD [address] [facility] TRAZODONE HCL 100MG TAB TAKE ONE TABLET BY MOUTH AT BEDTIME AND TAKE ONE-HALF TABLET AT BEDTIME NEEDED SLEEP ORAL DISCONT INUED (EDIT) 06/18/2025 [id number] 4 JAMES LONG MD [address] [facility] [place] [facility] Allergies, Adverse Reactions, Alerts Combined list of allergies from Department of Defense and Veterans Affairs facilities. It does not include entries that were removed or entered in error. Substance Category Reaction Severity Reaction type Status Date Reported Comments Source CATS Propensity to adverse reaction (finding) active 3 [facility] CATS Propensity to adverse reaction (finding) Urticaria active 0 [facility] No Known Allergies Drug allergy (disorder) active [address] [facility] TUBERCULIN, PURIFIED PROTEIN DERIVATIVE Propensity to adverse reactions to drug (finding) Eruption active 0 [facility] Immunizations Combined list of available immunizations from the Department of Defense and Veterans Affairs facilities. Immunization Series Date Given Administered By Site Reaction Lot Number CVX Code Drug Dictaphone Typist Status Comments Source INFLUENZA, SPLIT VIRUS, TRIVALENT, PF 2023 RACHEL VALENCIA LEFT DELTO ID [id number] 140 complet ed [facility] [place] COVID-19 (MODERNA), MRNA, LNP-S, PF, 100 MCG/0.5ML DOSE OR 50 MCG/0.25ML DOSE 1 2021 NEMO ANDREW LEFT DELTO ID [id number] 207 complet ed [facility] [place] [facility] TDAP 2017 115 complet ed [facility] FLU,3 YRS (HISTORICAL) 2015 88 complet ed Site: Left Deltoid [facility] [place] [facility] PNEUMOCOCCAL POLYSACCHARID E PPV23 2015 33 complet ed [facility] [place] [facility] DTAP, UNSPECIFIED FORMULATION 2013 107 complet ed Site: Right Deltoid [facility] [place] [facility] FLU,3 YRS (HISTORICAL) 2013 88 complet ed Site: Right Deltoid [facility] [place] [facility] tetanus and diphtheria toxoids, adsorbed, preservative free, [...] antigen)-reti red CODE 0 2005 Unknown, Provider [id number] 15 [employer] ([facility]) complet ed influenza virus vaccine, split virus [...] 2005 MILAGRO SINGLETON [id number] [employer] Paste[employer] ([facility]) complet ed typhoid Vi capsular polysacch aride [...] antigen)-reti red CODE 1 1999 Unknown, Provider [id number] 15 Maida (ROSA) complet ed influenza virus [...] PM Reporting Lab: [facility] [place] [facility] [address] [facility] [address] Performing Lab: [facility] [place] [facility] [address] [facility] [address] [facility] [place] [facility] LIPID PANEL FASTING TRIGLYCERI DE [MASS/VOLU ME] IN SERUM OR PLASMA 70 mg/dL 0 - 150 07/06 Specimen Type: SERUM No comment entered. Ordering Provider: SINA LONG MD Report Released Date/Time: Jun 17, 2024 02:14 PM Reporting Lab: [facility] [place] [address] [address] Performing Lab: [facility] [place] [address] [address] [facility] LIPID PANEL FASTING CHOLESTERO L IN LDL [MASS/VOLU ME] IN SERUM OR PLASMA BY CALCELOYO N 171 mg/dL 0 - 129 07/06 H Specimen Type: SERUM No comment entered. Ordering Provider: SINA LONG MD Report Released Date/Time: Jun 17, 2024 02:14 PM Reporting Lab: [facility] [place] [address] [address] Performing Lab: [facility] [place] [address] [address] [facility] [place] [facility] LIPID PANEL FASTING CHOLESTERO L.TOTAL/CH OLESTEROL IN HDL [MASS RATIO] IN SERUM OR PLASMA 3.8 07/06 Specimen Type: SERUM No comment entered. Ordering Provider: SINA LONG MD Report Released Date/Time: Jun 17, 2024 02:14 PM Reporting Lab: [facility] [place] [address] [address] Performing Lab: [facility] [address] [facility] [address] [facility]N [facility]ITALUSE [facility] LIPID PANEL FASTING CHOLESTERO L IN HDL [MASS/VOLU ME] IN SERUM OR PLASMA 66 mg/dL 40 - 60 07/06 H Specimen Type: SERUM No comment entered. Ordering Provider: SINA LONG MD Report Released Date/Time: Jun 17, 2024 02:14 PM Reporting Lab: [facility] [address] [facility] [address] Performing Lab: [facility] TRN [address] [address] [facility] SYSTEMRD.[facility]ITALN [facility]ITALUSE [facility] BASIC METABOLI C PANEL (non-fas ting) UREA NITROGEN [MASS/VOLU ME] IN SERUM OR PLASMA 19 mg/dL 7 - 25 07/06 Specimen Type: SERUM No comment entered. Ordering Provider: OPAL RAZO Report Released Date/Time: Jul 01, 2024 03:56 PM Reporting Lab: [facility] [address] Performing Lab: [facility] [address] [facility] BASIC METABOLI C PANEL (non-fas ting) GLUCOSE [MASS/VOLU ME] IN SERUM OR PLASMA 90 mg/dL 65 - 100 07/06 Specimen Type: SERUM No comment entered. Ordering Provider: OPAL RAZO Report Released Date/Time: Jul 01, 2024 03:56 PM Reporting Lab: [facility] [address] Performing Lab: [facility] [address] [facility] SYSTEMRD.[facility]ITALN [facility]ITALUSE [facility] BASIC METABOLI C PANEL (non-fas ting) SODIUM [MOLES/VOL UME] IN SERUM OR PLASMA 139 mmol/L 135 - 145 07/06 Specimen Type: SERUM No comment entered. Ordering Provider: OPAL RAZO Report Released Date/Time: Jul 01, 2024 03:56 PM Reporting Lab: [facility] [address] [address] Performing Lab: [facility]ITAL[facility] [address] [address] [facility] [place] [facility] BASIC METABOLI C PANEL (non-fas ting) POTASSIUM [MOLES/VOL UME] IN SERUM OR PLASMA 4.8 mmol/L 3.5 - 5.0 07/06 Specimen Type: SERUM No comment entered. Ordering Provider: OPAL RAZO Report Released Date/Time: Jul 01, 2024 03:56 PM Reporting Lab: [facility]ITAL[facility] [address] [address] Performing Lab: [facility] [address] [facility] WSTRN [facility]ITALUSE [facility] BASIC METABOLI C PANEL (non-fas ting) CHLORIDE [MOLES/VOL UME] IN SERUM OR PLASMA 104 mmol/L 100 - 110 07/06 Specimen Type: SERUM No comment entered. Ordering Provider: OPAL RAZO Report Released Date/Time: Jul 01, 2024 03:56 PM Reporting Lab: [facility] [address] Performing Lab: [facility]ITAL[facility] [address] [address] [address] CN[facility]N [facility]ITALUSE [facility] BASIC METABOLI C PANEL (non-fas ting) CARBON DIOXIDE, TOTAL [MOLES/VOL UME] IN SERUM OR PLASMA 26 meq/L 20 - 30 07/06 Specimen Type: SERUM No comment entered. Ordering Provider: OPAL RAZO Report Released Date/Time: Jul 01, 2024 03:56 PM Reporting Lab: [facility] [address] Performing Lab: [facility] [place] [address] [place] [address] [facility] TRN [facility]ITALUSE [facility] BASIC METABOLI C PANEL (non-fas ting) CREATININE [MASS/VOLU ME] IN SERUM OR PLASMA 1.04 mg/dL 0.50 - 1.40 07/06 Specimen Type: SERUM No comment entered. Ordering Provider: OPAL RAZO Report Released Date/Time: Jul 01, 2024 03:56 PM Reporting Lab: [facility]USER[facility] [address] [facility] [address] Performing Lab: [facility] CNTR[facility]ITALUSER[facility] [address] [facility] [address] [facility] SYSTEMRD.[facility]ITALN [facility]ITALUSE [facility] BASIC METABOLI C PANEL (non-fas ting) GLOMERULAR FILTRATION RATE/1.73 SQ M.PREDICTE D [VOLUME RATE/AREA] IN SERUM, PLASMA OR BLOOD BY CREATININE -BASED FORMULA (CKD-EPI 2020) 87 mL/min 60 07/06 Specimen Type: SERUM No comment entered. Ordering Provider: OPAL RAZO Report Released Date/Time: Jul 01, 2024 03:56 PM Reporting Lab: [facility] SYSTEMRD.W. [facility] HOSPITALN [address] [address] Performing Lab: [facility] SYSTEMRL [facility]N [address] [address] [facility] CALCIUM CALCIUM [MASS/VOLU ME] IN SERUM OR PLASMA 9.8 mg/dL 8.5 - 10.2 07/06 Specimen Type: SERUM No comment entered. Ordering Provider: OPAL RAZO Report Released Date/Time: Jul 01, 2024 03:56 PM Reporting Lab: [facility] SYSTEMRD.[facility]OSPITALN [facility] [address] Performing Lab: [facility] SYSTEMRD.[facility]ITALN [facility] [address] [facility] CBC AND DIFF (AUTO) LEUKOCYTES [#/VOLUME] IN BLOOD BY AUTOMATED COUNT 8.69 10*3/uL 4.50 - 11.00 07/06 Specimen Type: BLOOD No comment entered. Ordering Provider: OPAL RAZO Report Released Date/Time: Jul 01, 2024 03:56 PM Reporting Lab: [facility] [place] [facility] [address] [facility] [address] Performing Lab: [facility] [place] [facility] [address] [facility] [address] [facility] [place] [facility] CBC AND DIFF (AUTO) ERYTHROCYT ES [#/VOLUME] IN BLOOD BY AUTOMATED COUNT 5.01 10*6/uL 4.23 - 5.66 07/06 Specimen Type: BLOOD No comment entered. Ordering Provider: OPAL RAZO Report Released Date/Time: Jul 01, 2024 03:56 PM Reporting Lab: [facility] [place] [address] [address] Performing Lab: [facility] [place] [facility] [address] [facility] [address] [facility] [place] [facility] CBC AND DIFF (AUTO) HEMOGLOBIN [MASS/VOLU ME] IN BLOOD 16.3 g/dL 12.8 - 17 07/06 Specimen Type: BLOOD No comment entered. Ordering Provider: OPAL RAZO Report Released Date/Time: Jul 01, 2024 03:56 PM Reporting Lab: [facility] [place] [address] [address] Performing Lab: [facility] [place] [facility] [address] [facility] [address] [facility] [place] [facility] CBC AND DIFF (AUTO) HEMATOCRIT [VOLUME FRACTION] OF BLOOD BY AUTOMATED COUNT 47.3 39.2 - 50.4 07/06 Specimen Type: BLOOD No comment entered. Ordering Provider: OPAL RAZO Report Released Date/Time: Jul 01, 2024 03:56 PM Reporting Lab: [facility] [place] [address] [address] Performing Lab: [facility] [place] [address] [address] [facility] [place] [facility] CBC AND DIFF (AUTO) MCV [ENTITIC VOLUME] BY AUTOMATED COUNT 94.4 fL 82 - 99 07/06 Specimen Type: BLOOD No comment entered. Ordering Provider: OPAL RAZO Report Released Date/Time: Jul 01, 2024 03:56 PM Reporting Lab: [facility] [place] [facility] [address] [facility] [address] Performing Lab: [facility] [place] [facility] [address] [facility] [address] [facility] [place] [facility] CBC AND DIFF (AUTO) MCHC [MASS/VOLU ME] BY AUTOMATED COUNT 34.5 g/dL 30.8 - 35.1 07/06 Specimen Type: BLOOD No comment entered. Ordering Provider: OPAL RAZO Report Released Date/Time: Jul 01, 2024 03:56 PM Reporting Lab: [facility] [place] [address] [address] Performing Lab: [facility] [place] [address] [address] [facility] [facility] CBC AND DIFF (AUTO) PLATELETS [#/VOLUME] IN BLOOD BY AUTOMATED COUNT 282 10*3/uL 140 - 360 07/06 Specimen Type: BLOOD No comment entered. Ordering Provider: OPAL RAZO Report Released Date/Time: Jul 01, 2024 03:56 PM Reporting Lab: [facility] [place] [address] [address] Performing Lab: [facility] [place] [address] [address] [facility] [place] [facility] CBC AND DIFF (AUTO) ERYTHROCYT E DISTRIBUTI ON WIDTH [RATIO] BY AUTOMATED COUNT 12.7 12.0 - 16.0 07/06 Specimen Type: BLOOD No comment entered. Ordering Provider: OPAL RAZO Report Released Date/Time: Jul 01, 2024 03:56 PM Reporting Lab: [facility] [place] [facility] [address] [facility] [address] Performing Lab: [facility] [place] [facility] [address] [facility] [address] [facility] CBC AND DIFF (AUTO) MONOCYTES [#/VOLUME] IN BLOOD BY AUTOMATED COUNT 0.49 10*3/uL 0.30 - 1.10 07/06 Specimen Type: BLOOD No comment entered. Ordering Provider: OPAL RAZO Report Released Date/Time: Jul 01, 2024 03:56 PM Reporting Lab: [facility] [place] [facility] [address] [facility] [address] Performing Lab: [facility] [place] [facility] [address] [facility] [address] [facility] CBC AND DIFF (AUTO) MCH [ENTITIC MASS] BY AUTOMATED COUNT 32.5 pg 26.2 - 32.6 07/06 Specimen Type: BLOOD No comment entered. Ordering Provider: OPAL RAZO Report Released Date/Time: Jul 01, 2024 03:56 PM Reporting Lab: [facility] [place] [address] [address] Performing Lab: [facility] [place] [facility] [address] [facility] [address] [facility] [place] [facility] CBC AND DIFF (AUTO) NEUTROPHIL S/100 LEUKOCYTES IN BLOOD BY AUTOMATED COUNT 70.3 43.7 - 75.8 07/06 Specimen Type: BLOOD No comment entered. Ordering Provider: OPAL RAZO Report Released Date/Time: Jul 01, 2024 03:56 PM Reporting Lab: [facility] [place] [facility] [address] [facility] [address] Performing Lab: [facility] [place] [facility] [address] [facility] [address] [facility] CBC AND DIFF (AUTO) LYMPHOCYTE S/100 LEUKOCYTES IN BLOOD BY AUTOMATED COUNT 22.3 14.0 - 42.3 07/06 Specimen Type: BLOOD No comment entered. Ordering Provider: OPAL RAZO Report Released Date/Time: Jul 01, 2024 03:56 PM Reporting Lab: [facility] [place] [address] [facility] [address] Performing Lab: [facility] [address] [facility] [address] [facility] CBC AND DIFF (AUTO) MONOCYTES/ 100 LEUKOCYTES IN BLOOD BY AUTOMATED COUNT 5.6 5.1 - 13.7 07/06 Specimen Type: BLOOD No comment entered. Ordering Provider: OPAL RAZO Report Released Date/Time: Jul 01, 2024 03:56 PM Reporting Lab: [facility] [address] [facility] [address] Performing Lab: [facility] [place] [facility] [address] [facility] [address] [facility] CBC AND DIFF (AUTO) EOSINOPHIL S/100 LEUKOCYTES IN BLOOD BY AUTOMATED COUNT 0.6 0.4 - 6.8 07/06 Specimen Type: BLOOD No comment entered. Ordering Provider: OPAL RAZO Report Released Date/Time: Jul 01, 2024 03:56 PM Reporting Lab: [facility] [address] [facility] [address] Performing Lab: [facility] [address] [facility] [address] [facility] CBC AND DIFF (AUTO) BASOPHILS/ 100 LEUKOCYTES IN BLOOD BY AUTOMATED COUNT 0.7 0.1 - 2.0 07/06 Specimen Type: BLOOD No comment entered. Ordering Provider: OPAL RAZO Report Released Date/Time: Jul 01, 2024 03:56 PM Reporting Lab: [facility] [address] [facility] [address] Performing Lab: [facility] [place] [address] [facility] [address] [facility] CBC AND DIFF (AUTO) NEUTROPHIL S [#/VOLUME] IN BLOOD BY AUTOMATED COUNT 6.11 10*3/uL 2.20 - 7.60 07/06 Specimen Type: BLOOD No comment entered. Ordering Provider: OPAL RAZO Report Released Date/Time: Jul 01, 2024 03:56 PM Reporting Lab: [facility] [address] [address] Performing Lab: [facility] [address] [address] [facility] CBC AND DIFF (AUTO) LYMPHOCYTE S [#/VOLUME] IN BLOOD BY AUTOMATED COUNT 1.94 10*3/uL 1.00 - 3.20 07/06 Specimen Type: BLOOD No comment entered. Ordering Provider: OPAL RAZO Report Released Date/Time: Jul 01, 2024 03:56 PM Reporting Lab: [facility] SYSTEMRL [facility] [address] [address] Performing Lab: [facility] [address] [phone] [place], [place] [address]RL WSTRN [facility]ITAL[facility] CBC AND DIFF (AUTO) EOSINOPHIL S [#/VOLUME] IN BLOOD BY AUTOMATED COUNT 0.05 10*3/uL 0.03 - 0.44 07/06 Specimen Type: BLOOD No comment entered. Ordering Provider: OPAL RAZO Report Released Date/Time: Jul 01, 2024 03:56 PM Reporting Lab: [facility] [place] [facility] [address] [facility] [address] Performing Lab: [facility] [address] [address] [facility] [place] [facility] CBC AND DIFF (AUTO) BASOPHILS [#/VOLUME] IN BLOOD BY AUTOMATED COUNT 0.06 10*3/uL 0.01 - 0.13 07/06 Specimen Type: BLOOD No comment entered. Ordering Provider: OPAL RAZO Report Released Date/Time: Jul 01, 2024 03:56 PM Reporting Lab: [facility] [place] [facility] [address] [facility] [address] Performing Lab: [facility] [place] [facility] [address] [facility] [address] [facility] [place] [facility] CBC AND DIFF (AUTO) IMMATURE GRANULOCYT ES/100 LEUKOCYTES IN BLOOD BY AUTOMATED COUNT 0.5 0.0 - 0.7 07/06 Specimen Type: BLOOD No comment entered. Ordering Provider: OPAL ARZO Report Released Date/Time: Jul 01, 2024 03:56 PM Reporting Lab: [facility] [place] [address] [address] Performing Lab: [facility] [place] [address] [address] [facility] [place] [facility] CBC AND DIFF (AUTO) IMMATURE GRANULOCYT ES [#/VOLUME] IN BLOOD 0.04 10*3/uL 0.00 - 0.06 07/06 Specimen Type: BLOOD No comment entered. Ordering Provider: OPAL RAZO Report Released Date/Time: Jul 01, 2024 03:56 PM Reporting Lab: [facility] [place] [address] [address] Performing Lab: [facility] [address] [address] [facility] SYSTEMRL [facility]ITALCHUSE TS [facility] CBC AND DIFF (AUTO) NRBC % 0.0 0.0 - 0.0 07/06 Specimen Type: BLOOD No comment entered. Ordering Provider: OPAL RAZO Report Released Date/Time: Jul 01, 2024 03:56 PM Reporting Lab: [facility] [place] [address] [address] Performing Lab: [facility] [place] [address] [address] [facility] [place] [facility] CBC AND DIFF (AUTO) NRBC, ABS 0.00 10*3/uL 0.00 - 0.00 07/06 Specimen Type: BLOOD No comment entered. Ordering Provider: OPAL RAZO Report Released Date/Time: Jul 01, 2024 03:56 PM Reporting Lab: [facility] SYSTEMRL [facility]N [facility]ITALUSEROC[facility] [address] [facility] [address] Performing Lab: [facility]ITALUSEROCKEFELL[facility] [address] [facility] [address] [facility] SYSTEMRD.W[facility]ITALN [facility]ITALUSE [facility] HEMOGLOB IN A1C PANEL HEMOGLOBIN A1C/HEMOGL [...] Jul 01, 2024 03:56 PM Reporting Lab: [facility] SYSTEMRL TRN [facility] [address] Performing Lab: [facility] SYSTEMRL TRN [facility] [address] [facility] SYSTEMRD.W. M[facility]ILL[facility]OSPITALN [facility] LIVER FUNCTION PROTEIN [MASS/VOLU ME] IN SERUM OR PLASMA 7.4 g/dL 6.0 - 8.3 07/06 Specimen Type: SERUM No comment entered. Ordering Provider: OPAL RAZO Report Released Date/Time: Jul 01, 2024 03:56 PM Reporting Lab: [facility] SYSTEMRL W[facility]N [facility]ITAL[facility] [address] [address] Performing Lab: [facility] SYSTEMRL WSTRN [facility] [address] [facility] SYSTEMRD.W. MCMILL[facility] HOSPITALN [facility]ITALUSE [facility] LIVER FUNCTION ALBUMIN [MASS/VOLU ME] IN SERUM OR PLASMA 4.4 g/dL 3.5 - 5.0 07/06 Specimen Type: SERUM No comment entered. Ordering Provider: OPAL RAZO Report Released Date/Time: Jul 01, 2024 03:56 PM Reporting Lab: [facility] [place] [facility] [address] [facility] [address] Performing Lab: [facility] [place] [address] [facility] [address] [facility] [place] [facility] LIVER FUNCTION ALKALINE PHOSPHATAS E [ENZYMATIC ACTIVITY/V OLUME] IN SERUM OR PLASMA 95 U/L 40 - 150 07/06 Specimen Type: SERUM No comment entered. Ordering Provider: OPAL RAZO Report Released Date/Time: Jul 01, 2024 03:56 PM Reporting Lab: [facility] [place] [facility] [address] [facility] [address] Performing Lab: [facility] [place] [facility] [address] [facility] [address] [facility] [place] [facility] LIVER FUNCTION ASPARTATE AMINOTRANS FERASE [ENZYMATIC ACTIVITY/V OLUME] IN SERUM OR PLASMA 21 U/L 5 - 34 07/06 Specimen Type: SERUM No comment entered. Ordering Provider: OPAL RAZO Report Released Date/Time: Jul 01, 2024 03:56 PM Reporting Lab: [facility] [place] [facility] [address] [facility] [address] Performing Lab: [facility] [place] [facility] [address] [facility] [address] [facility] [place] [facility] LIVER FUNCTION ALANINE AMINOTRANS FERASE [ENZYMATIC ACTIVITY/V OLUME] IN SERUM OR PLASMA 34 U/L 07/06 Specimen Type: SERUM No comment entered. Ordering Provider: OPAL RAZO Report Released Date/Time: Jul 01, 2024 03:56 PM Reporting Lab: [facility] [place] [facility] [address] [facility] [address] Performing Lab: [facility] [place] [facility] [address] [facility] [address] [facility] [place] [facility] LIVER FUNCTION BILIRUBIN. TOTAL [MASS/VOLU ME] IN SERUM OR PLASMA 0.4 mg/dL 0.2 - 1.2 07/06 Specimen Type: SERUM No comment entered. Ordering Provider: OPAL RAZO Report Released Date/Time: Jul 01, 2024 03:56 PM Reporting Lab: [address] [address] Performing Lab: [address] [address] [facility] T-SPOT TB PANEL MYCO[employer]ER IUM TUBERCULOS [...] additional information , please refer to http://educ ation.[email or web address] .com/faq/FA Q215 (This link is being provided for information al/ educational purposes only.) Test Performed by [facility] [place], [facility], [address] [place] [address] Mal Freeman M.D., Ph.D., Director of Laboratorie s , CLIA [id number] TEST PERFORMED AT: , Ordering Provider: OPAL RAZO Report Released Date/Time: Jul 10, 2023 10:22 AM Reporting Lab: [address] [place] [address] Performing Lab: [facility] [address] [address] [facility] T-SPOT TB PANEL MYCOBACTER IUM TUBERCULOS [...] additional information , please refer to http://educ ation.[email or web address] .com/faq/FA Q215 (This link is being provided for information al/ educational purposes only.) Test Performed by [facility], [facility], [address] [place] [address] Mal Freeman M.D., Ph.D., Director of Laboratorie s , CLIA [id number] TEST PERFORMED AT: , Ordering Provider: OPAL RAZO Report Released Date/Time: Jul 10, 2023 10:22 AM Reporting Lab: [facility] [address] [facility] [address] Performing Lab: [facility] [address] [address] [facility] T-SPOT TB PANEL MYCOBA[employer]ER IUM TUBERCULOS [...] additional information , please refer to http://educ ation.[email or web address] .com/faq/FA Q215 (This link is being provided for information al/ educational purposes only.) Test Performed by [employer] [place], [facility], [address] [place] [address] Mal Freeman M.D., Ph.D., Director of Laboratorie s , CLIA [id number] TEST PERFORMED AT: , Ordering Provider: OPAL RAZO Report Released Date/Time: Jul 10, 2023 10:22 AM Reporting Lab: [facility] [address] [facility] [address] Performing Lab: [facility] [address] [address] [facility] T-SPOT TB PANEL MITOGEN STIMULATED GAMMA [...] additional information , please refer to http://educ [email or web address]/faq/FA Q215 (This link is being provided for information al/ educational purposes only.) Test Performed by [facility], [facility], [address] [place] [address] Mal Freeman M.D., Ph.D., Director of Laboratorie s , CLIA [id number] TEST PERFORMED AT: , Ordering Provider: OPAL RAZO Report Released Date/Time: Jul 10, 2023 10:22 AM Reporting Lab: [facility] [address] [facility] [address] Performing Lab: [facility] [address] [address] [facility] T-SPOT TB PANEL GAMMA INTERFERON NEGATIVE [...] additional information , please refer to [email or web address]://educ [email or web address] .[email or web address]/faq/FA Q215 (This link is being provided for information al/ educational purposes only.) Test Performed by [employer], [facility], [address] [place] [address] Mal Freeman M.D., Ph.D., Director of Laboratorie s , CLIA [id number] TEST PERFORMED AT: , Ordering Provider: OPAL RAZO Report Released Date/Time: Jul 10, 2023 10:22 AM Reporting Lab: [address] [address] Performing Lab: [place] [address] LIVER FUNCTION PROTEIN [MASS/VOLU ME] IN SERUM OR PLASMA 6.7 g/dL 6.0 - 8.3 03/31 Specimen Type: SERUM No comment entered. Ordering Provider: JULES PEREZ Report Released Date/Time: Mar 30, 2023 12:31 PM Reporting Lab: [address] [address] Performing Lab: [address] [address] [facility] LIVER FUNCTION ALBUMIN [MASS/VOLU ME] IN SERUM OR PLASMA 4.1 g/dL 3.5 - 5.0 03/31 Specimen Type: SERUM No comment entered. Ordering Provider: JULES PEREZ Report Released Date/Time: Mar 30, 2023 12:31 PM Reporting Lab: [facility] [place] [facility] [address] [facility] [address] Performing Lab: [facility] [place] [facility] [address] [facility] [address] [facility] [place] [facility] LIVER FUNCTION ALKALINE PHOSPHATAS E [ENZYMATIC ACTIVITY/V OLUME] IN SERUM OR PLASMA 72 U/L 40 - 150 03/31 Specimen Type: SERUM No comment entered. Ordering Provider: JULES PEREZ Report Released Date/Time: Mar 30, 2023 12:31 PM Reporting Lab: [facility] [place] [facility] [address] [facility] [address] Performing Lab: [facility] [place] [facility] [address] [facility] [address] [facility] SYSTEMRL WSTRN [facility]ITALUSE [facility] LIVER FUNCTION ASPARTATE AMINOTRANS FERASE [ENZYMATIC ACTIVITY/V OLUME] IN SERUM OR PLASMA 11 U/L 5 - 34 03/31 Specimen Type: SERUM No comment entered. Ordering Provider: JULES PEREZ Report Released Date/Time: Mar 30, 2023 12:31 PM Reporting Lab: [facility] [place] [facility] [address] [facility] [address] Performing Lab: [facility] [place] [facility] [address] [facility] [address] [facility] SYSTEMRL WSTRN [facility]ITALCHUSE [facility] LIVER FUNCTION ALANINE AMINOTRANS FERASE [ENZYMATIC ACTIVITY/V OLUME] IN SERUM OR PLASMA 19 U/L 03/31 Specimen Type: SERUM No comment entered. Ordering Provider: JULES PEREZ Report Released Date/Time: Mar 30, 2023 12:31 PM Reporting Lab: [facility] [place] [facility] [address] [facility] [address] Performing Lab: [facility] [place] [facility] [address] [facility] [address] [facility] SYSTEMRL WSTRN [facility]ITALCHUSE [facility] LIVER FUNCTION BILIRUBIN. TOTAL [MASS/VOLU ME] IN SERUM OR PLASMA 0.4 mg/dL 0.2 - 1.2 03/31 Specimen Type: SERUM No comment entered. Ordering Provider: JULES PEREZ Report Released Date/Time: Mar 30, 2023 12:31 PM Reporting Lab: [facility] [place] [address] [address] Performing Lab: [facility] [place] [facility] [address] [facility] [address] [facility] SYSTEMRL W[facility]N [place] [facility] AMPHETAM SHERIE SCREEN PANEL AMPHETAMIN ES [PRESENCE] [...] Mar 26, 2023 08:40 AM Reporting Lab: [facility] [place] [address] [address] Performing Lab: [facility] SYSTEMRL [facility] [place] [address] [address] [facility] SYSTEMRHUNTSVILLE [facility] SYSTEMTRN [place] [facility] AMPHETAM SHERIE SCREEN PANEL PH OF URINE [...] Mar 26, 2023 08:40 AM Reporting Lab: [facility] [place] [address] [address] Performing Lab: [facility] SYSTEMRL W[facility]N [facility] [address] [address] [facility] SYSTEMRL TRN [place] [facility] AMPHETAM SHERIE SCREEN PANEL CREATININE [MASS/VOLU ME] [...] Mar 26, 2023 08:40 AM Reporting Lab: [facility] Ringthree TechnologiesUSEROCKEFE[facility]ER [facility] [address] [facility] [address] Performing Lab: [address] [address] [facility] Intoan TechnologyUSE [facility] AMPHETAM SHERIE SCREEN PANEL SPECIFIC GRAVITY [...] Mar 26, 2023 08:40 AM Reporting Lab: [facility] [place] [facility] [address] [facility] [address] Performing Lab: [facility]N Intoan TechnologyUSEROCKEFELLER [facility] [address] [facility] [address] [facility] Intoan TechnologyUSE [facility] BENZODIA ZEPINES SCREEN PANEL BENZODIAZE PINES [...] Mar 26, 2023 08:40 AM Reporting Lab: [facility] [place] [facility] [address] [facility] [address] Performing Lab: [facility]RL [facility] [place] [address] [address] [facility]RHUN[facility] SYSTEMTRN [place] [facility] BENZODIA ZEPINES SCREEN PANEL PH OF [...] Mar 26, 2023 08:40 AM Reporting Lab: [facility] SYSTEMRL TRN [place] [address] [address] Performing Lab: [facility] [place] [address] [address] [facility]N [facility]ITALUSE TS [facility] BENZODIA ZEPINES SCREEN PANEL CREATININE [MASS/VOLU ME] [...] Mar 26, 2023 08:40 AM Reporting Lab: [facility] [place] [address] [address] Performing Lab: [facility] [place] [facility] [address] [facility] [address] [place] [facility] [place] [facility] BENZODIA ZEPINES SCREEN PANEL SPECIFIC GRAVITY OF [...] Mar 26, 2023 08:40 AM Reporting Lab: [facility] [place] [facility] [address] [facility] [address] Performing Lab: [facility] [place] [facility] [address] [facility] [address] [place] [facility] [place] [facility] Vital Signs Combined list of inpatient and [...] 08/10/2024 10:08:37 [facility] [place] [facility] TEMPERATURE 98.4 08/10/2024 10:08:37 VA C NTRL [...] ADM Date DC Date [facility]) [facility] [id number] SUITABI DERICK MILLER T 08/30 Released w/o Limitations [facility] [place] OUTPAT[facility] [id number] ad needs ref to pulm for asthma testing TAMI FRIAS 09/04 [facility]ased w[facility] Limitations [facility] OUTPATIENT [id number] pulmona ry consult per DERICK Cat T 09/05 Released w/o Limitations [facility] OUTPATIENT [id number] bp check TANVI VINSON 09/27 Released w/o Limitations [facility](S ub[facility] Immed Care) [facility] Care) TELE CONSULT [id number] PT require s consult to pulmono logy for asthma evaluat ion DERICK CHAPMAN T 10/01 [facility]Joellen merton Pulmonolo gy) OUTPATIENT [id number] wheezin g [as a symptom ] GREGORIO_NIDIA CASPER S 10/29 Released with Work/Duty Limitations [facility](B remerto n Pulmono logy) [facility] [place]([facility]) OUTPATIENT [id number] 30YO/FU ON ASTHMA DERICK CHAPMAN T 11/04 Released w/o Limitations [facility](Z ZFamily Medicin e) [facility]([facility]) OUTPATIENT [id number] AD Rash on back x 1-2mo VALDO ALTMAN 02/19 Released w/o Limitations [facility](Z ZFamily Medicin e) [facility](B Chiroprac tic Cln) OUTPATIENT [id number] BACKACH E BHATTI, SPRING N 02/28 Released w/o Limitations [facility](B Chiropr actic Cln) [facility](B Chiroprac tic Cln) OUTPATIENT [id number] f/u upper back pain BHATTI, SPRING N 03/03 Released w/o Limitations [facility](B Chiropr actic Cln) [facility](B Chiroprac tic Cln) OUTPATIENT [id number] f/u upper back pain BHATTI, SPRING N 03/05 Released w/o Limitations [facility](B Chiropr actic Cln) [facility](B Chiroprac tic Cln) OUTPATIENT [id number] f.u per pt BHATTI, SPRING N 03/14 Released w/o Limitations [facility](B Chiropr actic Cln) [facility](B Chiroprac tic Cln) OUTPATIENT [id number] f.u back per pt BHATTI, SPRING N 03/17 Released w/o Limitations [facility](B Chiropr actic Cln) [facility] [place](B Chiroprac tic Cln) OUTPATIENT [id number] LBP BHATTI, SPRING N 03/19 Released w/o Limitations [facility](B Chiropr actic Cln) [facility] [place](Sub ase Patient Ed) OUTPATIENT [id number] PPD intervi ew DAO MATTHEWS S 04/22 Released w/o Limitations [facility](S ubase Patient Ed) [facility] [place](Sub ase Immunizat ions) OUTPATIENT [id number] typhoid DAO MATTHEWS 04/22 Released w/o Limitations [facility](S ubase Immuniz ations) [facility] [place](Sub ase Immunizat ions) OUTPATIENT [id number] hep b DAO MATTHEWS 05/08 Released w/o Limitations [facility](S ubase Immuniz ations) [facility] [place](Sub ase Immunizat ions) OUTPATIENT [id number] HBV#2 DAO MATTHEWS 12/03 Released w/o Limitations [facility](S ubase Immuniz ations) [facility] [place](Sub ase Immunizat ions) OUTPATIENT [id number] TD BERYL AMADOR 12/04 Released w/o Limitations [facility](S ubase Immuniz ations) [facility] [place]([facility]se [facility]) OUTPATIENT [id number] AD Eye check KEN GARCIA 01/08 Released w/o Limitations [facility](S ubase Optomet ry Clinic) [facility] [place]([facility]) OUTPATIENT [id number] Annual Follow- up for TB Screeni CHARISSA Arizmendi 02/23 Released w/o Limitations [facility](B remerto n Prev Med Clinic) [facility] [place](Sub ase [facility]atio [facility]) OUTPATIENT [id number] KEMI Taylor 02/23 Released w/o Limitations [facility](S ubase [facility]) [facility](SD Nutrition ) OUTPATIENT [id number] SAW WRIHGT 03/19 Released w/o Limitations [facility](S D Nutriti on) [facility] [place] [facility] OFFICE O/P EST SF 10-19 MIN [id number] Diagnos is: ICD-10- CM F25.0 Schizoa ffectiv e disorde r, bipolar type
ZAHRAMAYRA MARISABEL S 03/01 [facility] [place] [facility] [place] [facility] OFFICE O/P EST SF 10-19 MIN [id number] Diagnos is: ICD-10- CM F25.0 Schizoa ffectiv e disorde r, bipolar type
ZAHRAMAYRA MARISABEL S 03/02 [facility] [place] [facility] CASE MANAGEMENT [id number] Diagnos is: ICD-10- CM F10.24 Alcohol depende nce with alcohol -induce d mood disorde r
REINALDO RCEANDRIA 03/03 [facility] [place] [place] [facility] OFFICE O/P EST SF 10-19 MIN [id number] Diagnos is: ICD-10- CM F25.0 Schizoa ffectiv e disorde r, bipolar type
BROWNVINHMAYRA MARISABEL S 03/03 [facility] SBSQ HOSP IP/OBS MODERATE 35 44959-3.63 [id number] Diagnos is: ICD-10- CM F12.20 Cannabi s depende nce, uncompl icated< br/> JULES PEREZ 03/04 [facility] THERAPEUTI C ACTIVITIES [id number] [id number] Diagnos is: ICD-10- CM F25.0 Schizoa ffectiv e disorde r, bipolar type
BUFFY MALAVE DA T 03/04 [facility] Inpatient Encounter [id number] 03/04 [facility] SBSQ HOSP IP/OBS MODERATE 35 24863-5.63 [id number] Diagnos is: ICD-10- CM F25.0 Schizoa ffectiv e disorde r, bipolar type
JULES PEREZ 03/05 [facility] THERAPEUTI C ACTIVITIES [id number] [id number] Diagnos is: ICD-10- CM F25.0 Schizoa ffectiv e disorde r, bipolar type
BUFFY MALAVE DA T 03/05 [facility] CASE MANAGEMENT [id number] [id number] Diagnos is: ICD-10- CM F25.0 Schizoa ffectiv e disorde r, bipolar type
SU PETTIT N 03/05 [facility] SBSQ HOSP IP/OBS MODERATE 35 [id number] [id number] Diagnos is: ICD-10- CM F25.0 Schizoa ffectiv e disorde r, bipolar type
JULES PEREZ 03/06 [facility] CASE MANAGEMENT [id number] [id number] Diagnos is: ICD-10- CM F25.0 Schizoa ffectiv e disorde r, bipolar type
SU PETTIT N 03/06 [facility] [id number] Diagnos is: ICD-10- CM Z13.6 Encount er for screeni ng for cardiov ascular disorde rs
RYAN HINOJOSA 03/06 [place] [facility] ELECTROCAR DIOGRAM TRACING [id number] [id number] MEDARDO PARRISH 03/06 [facility] THERAPEUTI C ACTIVITIES [id number] [id number] Diagnos is: ICD-10- CM F25.0 Schizoa ffectiv e disorde r, bipolar type
BUFFY MALAVE 03/06 [facility] INTRAORAL PERIAPICAL FIRST [id number] [id number] Diagnos is: ICD-10- CM K08.9 Disorde r of teeth and support ing structu res, unspeci fied
ARIANA SMITH 03/07 [facility] SBSQ HOSP IP/OBS MODERATE 35 [id number] [id number] Diagnos is: ICD-10- CM F12.20 Cannabi s depende nce, uncompl icated< br/> CHRISJULES Brian 03/07 [facility] CASE MANAGEMENT [id number] [id number] Diagnos is: ICD-10- CM F25.0 Schizoa ffectiv e disorde r, bipolar type
SU PETTIT N N 03/07 [facility] S[facility] IP/OBS SF/LOW 25 [id number] [id number] Diagnos is: ICD-10- CM F10.24 Alcohol depende nce with alcohol -induce d mood disorde r
Yanni LONG MD 03/08 [facility] S[facility] IP/OBS SF/LOW 25 83204-4.63 [id number] Diagnos is: ICD-10- CM F10.24 Alcohol depende nce with alcohol -induce d mood disorde r
Yanni LONG MD 03/09 [facility] S[facility] IP/OBS SF/LOW 25 35332-8.63 [id number] Diagnos is: ICD-10- CM F10.24 Alcohol depende nce with alcohol -induce d mood disorde r
Yanni LONG MD 03/10 [facility] CASE MANAGEMENT [id number] [id number] Diagnos is: ICD-10- CM F25.0 Schizoa ffectiv e disorde r, bipolar type
SU PETTIT N N 03/11 [facility] S[facility] IP/OBS MODERATE 35 [id number] [id number] Diagnos is: ICD-10- CM F25.0 Schizoa ffectiv e disorde r, bipolar type
JULES PEREZ 03/11 [facility] SBSQ HOSP IP/OBS MODERATE 35 [id number] [id number] Diagnos is: ICD-10- CM F25.0 Schizoa ffectiv e disorde r, bipolar type
MIRJULES MILES 03/12 [facility] CASE MANAGEMENT [id number] [id number] Diagnos is: ICD-10- CM F25.0 Schizoa ffectiv e disorde r, bipolar type
SU PETTIT N N 03/12 [facility] [place] SBSQ HOSP IP/OBS MODERATE 35 [id number] [id number] Diagnos is: ICD-10- CM F25.0 Schizoa ffectiv e disorde r, bipolar type
JULES PEREZ 03/13 [facility] [place] [place] 1ST HOSP IP/OBS SF/LOW 40 50202-9.63 [id number] Diagnos is: ICD-10- CM K45.8 Oth abdomin al hernia without obstruc tion or gangren e
VALERIE WATT E 03/13 [facility] CASE MANAGEMENT 50707-3.63 [id number] Diagnos is: ICD-10- CM F25.0 Schizoa ffectiv e disorde r, bipolar type
SU PETTIT N 03/13 [facility] S[facility] IP/OBS MODERATE 35 90496-3.63 [id number] Diagnos is: ICD-10- CM F12.20 Cannabi s depende nce, uncompl icated< br/> JULES PEREZ 03/14 [facility] CASE MANAGEMENT 60180-7.63 [id number] Diagnos is: ICD-10- CM F25.0 Schizoa ffectiv e disorde r, bipolar type
SU PETTIT N 03/14 [facility] S[facility] IP/OBS SF/LOW 25 88550-4.63 [id number] Diagnos is: ICD-10- CM F25.0 Schizoa ffectiv e disorde r, bipolar type
Yanni LONG MD 03/15 [facility] S[facility] IP/OBS SF/LOW 25 [id number] [id number] Diagnos is: ICD-10- CM F10.24 Alcohol depende nce with alcohol -induce d mood disorde r
Yanni LONG MD 03/16 [facility] S[facility] IP/OBS MODERATE 35 49038-0.63 [id number] Diagnos is: ICD-10- CM F12.20 Cannabi s depende nce, uncompl icated< br/> JULES PEREZ 03/17 [facility] CASE MANAGEMENT 60278-5.63 [id number] Diagnos is: ICD-10- CM F25.0 Schizoa ffectiv e disorde r, bipolar type
HODAN,SU N N 03/17 [facility] In[facility] Encounter [id number] [id number] 03/17 [facility] S[facility] HOSP IP/OBS MODERATE 35 18625-7.63 [id number] Diagnos is: ICD-10- CM F12.20 Cannabi s depende nce, uncompl icated< br/> MIRJULES MILES M 03/18 [facility] CASE MANAGEMENT [id number] [id number] Diagnos is: ICD-10- CM F25.0 Schizoa ffectiv e disorde r, bipolar type
SU PETTIT N N 03/18 [facility] GROUP PSYCHOTHER APY 86464-0.63 [id number] Diagnos is: ICD-10- CM F25.0 Schizoa ffectiv e disorde r, bipolar type
REINALDO BAANDRIA Addison 03/18 [facility] S[facility] IP/OBS MODERATE 35 55638-7.63 [id number] Diagnos is: ICD-10- CM F25.0 Schizoa ffectiv e disorde r, bipolar type
ADELSO LOMBARDO Z 03/18 [facility] S[facility] HOSP IP/OBS MODERATE 35 [id number] [id number] Diagnos is: ICD-10- CM F25.0 Schizoa ffectiv e disorde r, bipolar type
MIROT,JULES M 03/19 [facility] [place] ELECTROCAR DIOGRAM TRACING [id number] [id number] DAVID MERIDA 03/19 [facility] [place] CASE MANAGEMENT [id number] [id number] Diagnos is: ICD-10- CM F25.0 Schizoa ffectiv e disorde r, bipolar type
HODANSU N N 03/19 [facility] Inpatient Encounter [id number] [id number] Diagnos is: ICD-10- CM K40.91 Unilate ral inguina l hernia, w/o obst or gangren e, recurre nt
HARMAN LEAL S 03/19 [facility] SBSQ HOSP IP/OBS MODERATE 35 [id number] [id number] Diagnos is: ICD-10- CM F10.24 Alcohol depende nce with alcohol -induce d mood disorde r
JULES PEREZ 03/20 [facility] [place] THERAPEUTI C ACTIVITIES 02044-8.63 [id number] Diagnos is: ICD-10- CM F25.0 Schizoa ffectiv e disorde r, bipolar type
BUFFY MALAVE 03/20 [facility] [place] CASE MANAGEMENT [id number] [id number] Diagnos is: ICD-10- CM F25.0 Schizoa ffectiv e disorde r, bipolar type
SU PETTIT N N 03/20 [facility] SBSQ HOSP IP/OBS MODERATE 35 00516-7.63 [id number] Diagnos is: ICD-10- CM F25.0 Schizoa ffectiv e disorde r, bipolar type
JULES PEREZ 03/21 [facility] [place] CASE MANAGEMENT [id number] [id number] Diagnos is: ICD-10- CM F25.0 Schizoa ffectiv e disorde r, bipolar type
SU PETTIT N N 03/21 [facility] CASE MANAGEMENT [id number] [id number] Diagnos is: ICD-10- CM Z65.3 Problem s related to other legal circums tances< br/> HEIDI RODRIGUEZ NA E 03/21 [facility] [place] SBSQ HOSP IP/OBS HIGH 50 08029-6.63 [id number] Diagnos is: ICD-10- CM F25.0 Schizoa ffectiv e disorde r, bipolar type
RA Brian KANG 03/22 [facility] [place] [place] SBSQ HOSP IP/OBS HIGH 50 52829-6.63 [id number] Diagnos is: ICD-10- CM F25.0 Schizoa ffectiv e disorde r, bipolar type
RA Brian KANG 03/23 [facility] [place] SBSQ HOSP IP/OBS MODERATE 35 16209-9.63 [id number] Diagnos is: ICD-10- CM F25.0 Schizoa ffectiv e disorde r, bipolar type
JULES PEREZ 03/24 [facility] [place] CASE MANAGEMENT [id number] [id number] Diagnos is: ICD-10- CM F25.0 Schizoa ffectiv e disorde r, bipolar type
SU PETTIT Estephanie N 03/24 [facility] [place] SBSQ HOSP IP/OBS MODERATE 35 12203-2.63 [id number] ISADORA COREY 03/25 [facility] [place] [place] [id number] [id number] Diagnos is: ICD-10- CM F25.0 Schizoa ffectiv e disorde r, bipolar type
BUFFY MALAVE 03/25 [facility] [place] Inpatient Encounter [id number] [id number] RA Brian KANG 03/25 [facility] [place] [facility] SBSQ HOSP IP/OBS SF/LOW 25 [id number] [id number] Diagnos is: ICD-10- CM F25.0 Schizoa ffectiv e disorde r, bipolar type
JULES PEREZ 03/26 [facility] [place] CASE MANAGEMENT 69922-3.63 [id number] Diagnos is: ICD-10- CM F25.0 Schizoa ffectiv e disorde r, bipolar type
SU PETTIT N N 03/26 [facility] [place] CASE MANAGEMENT [id number] [id number] Diagnos is: ICD-10- CM Z65.3 Problem s related to other legal circums tances< br/> JENNIFERHEIDI NA E 03/26 [facility] [place] 88359-3.68 [id number] Diagnos is: ICD-10- CM Z13.6 Encount er for screeni ng for cardiov ascular disorde rs
ROBERT VALDES UL U 03/26 [place] [facility] ELECTROCAR DIOGRAM TRACING [id number] [id number] ALBA QUISPE 03/26 [facility] [place] [place] [facility] ELECTROCAR DIOGRAM TRACING [id number] [id number] JULES PEREZ 03/26 [facility] [place] [place] [facility] SBSQ HOSP IP/OBS HIGH 50 46267-7.63 [id number] Diagnos is: ICD-10- CM F31.9 Bipolar disorde r, unspeci fied
RA Brian KANG 03/27 [facility] [place] CASE MANAGEMENT [id number] [id number] Diagnos is: ICD-10- CM F25.0 Schizoa ffectiv e disorde r, bipolar type
HODANSU N N 03/27 [facility] [place] SBSQ HOSP IP/OBS MODERATE 35 37768-7.63 [id number] Diagnos is: ICD-10- CM F25.0 Schizoa ffectiv e disorde r, bipolar type
JULES PEREZ 03/28 [facility] En[facility] [id number] [id number] [place] PETT[place] Estephanie N 03/28 [facility] THERAPEUTI C ACTIVITIES 99745-0.63 [id number] Diagnos is: ICD-10- CM F25.0 Schizoa ffectiv e disorde r, bipolar type
BUFFY MALAVE T 03/28 [facility] SBSQ HOSP IP/OBS SF/LOW 25 99955-6.63 [id number] Diagnos is: ICD-10- CM F25.0 Schizoa ffectiv e disorde r, bipolar type
JULES PEREZ 03/29 [facility] SBSQ HOSP IP/OBS SF/LOW 25 40370-8.63 [id number] Diagnos is: ICD-10- CM F12.20 Cannabi s depende nce, uncompl icated< br/> JULES PEREZ 03/30 [facility] In[facility] Encounter [id number] [id number] 03/31 [facility] SBSQ HOSP IP/OBS MODERATE 35 [id number] [id number] Diagnos is: ICD-10- CM F12.20 Cannabi s depende nce, uncompl icated< br/> JULES PEREZ 03/31 [facility] CASE MANAGEMENT [id number] [id number] Diagnos is: ICD-10- CM F25.0 Schizoa ffectiv e disorde r, bipolar type
SU PETTIT N N 03/31 [facility] Inpatient Encounter [id number] [id number] 03/31 [facility] SBSQ HOSP IP/OBS MODERATE 35 [id number] [id number] Diagnos is: ICD-10- CM F25.0 Schizoa ffectiv e disorde r, bipolar type
JULES PEREZ 04/01 [facility] [place] [place] [facility] PSYTX W PT 60 MINUTES [id number] [id number] Diagnos is: ICD-10- CM F25.0 Schizoa ffectiv e disorde r, bipolar type
SU PETTIT N N 04/01 [facility] [place] [place] [id number] [id number] Diagnos is: ICD-10- CM F25.0 Schizoa ffectiv e disorde r, bipolar type
BUFFY MALAVE T 04/01 [facility] Inpatient Encounter [id number] [id number] 04/02 [facility] [place] HOSP IP/OBS DSCHRG MGMT >30 24257-8.63 [id number] Diagnos is: ICD-10- CM F25.0 Schizoa ffectiv e disorde r, bipolar type
JULES PEREZ M 04/02 [facility] CASE MANAGEMENT [id number] [id number] Diagnos is: ICD-10- CM F25.0 Schizoa ffectiv e disorde r, bipolar type
SU PETTIT Estephanie N 04/02 [facility] Encounter [id number] [id number] 04/02 [facility] Outpatient [facility]counter [id number] 04/03 [facility] Encounter [id number] [id number] 04/04 [facility] Outpatient Encounter [id number] JD FRIAS 04/04 [facility] Outpatient Encounter [id number] SHERLY COLLINS 04/10 [facility] Encounter [id number] [id number] 04/14 [facility] Out[facility] Encounter [id number] [id number] 04/14 [facility] Out[facility] Encounter [id number] [id number] 04/15 [facility] Encounter [id number] [id number] 04/16 [facility] Encounter [id number] [id number] 04/17 [facility] Encounter [id number] [id number] 04/18 [facility] CASE MANAGEMENT [id number] [id number] Diagnos is: ICD-10- CM Z59.01 Halfway ed homeles sness<b r/> FOX JOYCE 04/21 [facility] Encounter [id number] 04/24 [facility] Encounter [id number] [id number] 04/29 [facility] Encounter [id number] [id number] 04/30 [facility] Out[facility] Encounter [id number] 05/01 [facility] Out[facility] Encounter [id number] 05/05 [facility] HC PRO PHONE CALL 5-10 MIN [id number] Diagnos is: ICD-10- CM F10.24 Alcohol depende nce with alcohol -induce d mood disorde r
Meredith TOLBERT 05/05 [facility] PSYTX W PT 30 MINUTES [id number] Diagnos is: ICD-10- CM F10.24 Alcohol depende nce with alcohol -induce d mood disorde r
KIANA GARCIA ON A 05/06 [facility] PSYTX W PT 45 MINUTES [id number] Diagnos is: ICD-10- CM F10.24 Alcohol depende nce with alcohol -induce d mood disorde r
JUSTIN ADAME 05/08 [facility] Outpatient Encounter [id number] JUSTIN ADAME 05/08 [facility] CASE MANAGEMENT [id number] Diagnos is: ICD-10- CM Z65.3 Problem s related to other legal circums tances< br/> JENNIFER,HEIDI NA E 05/09 [facility] HC PRO PHONE CALL 5-10 MIN [id number] Diagnos is: ICD-10- CM Z65.3 Problem s related to other legal circums tances< br/> JENNIFER,HEIDI NA E 05/16 [facility] OFFICE O/P EST SF 10-19 MIN [id number] Diagnos is: ICD-10- CM F10.24 Alcohol depende nce with alcohol -induce d mood disorde r
Yanni LONG MD 05/16 [facility] Out[facility] Encounter [id number] 05/21 [facility] CASE MANAGEMENT [id number] Diagnos is: ICD-10- CM Z59.01 Halfway ed homeles sness<b r/> MARIA DEL CARMENFOX DAI 05/29 [facility] Outpatient Encounter [id number] HORACIO HELEN 06/11 [facility] Out[facility] Encounter [id number] 06/13 [facility] CASE MANAGEMENT [id number] Diagnos is: ICD-10- CM Z65.3 Problem s related to other legal circums tances< br/> HEIDI RODRIGUEZ 06/18 [facility] Out[facility] Encounter [id number] 06/19 [facility] OFFICE O/P EST MOD 30-39 MIN [id number] Diagnos is: ICD-10- CM J45.998 Other asthma< br/> IRAIDA LOWRY 06/19 [facility] Out[facility]counter [id number] 06/20 [facility] Outpatient Encounter [id number] 06/22 [facility] Outpatient Encounter [id number] 07/07 [facility] Out[facility] Encounter [id number] 07/08 [facility] CASE MANAGEMENT [id number] Diagnos is: ICD-10- CM F25.0 Schizoa ffectiv e disorde r, bipolar type
MARIA DEL CARMENFOX DAI 07/09 [facility] OFFICE O/P EST MOD 30-39 MIN [id number] Diagnos is: ICD-10- CM M25.562 Pain in left knee
OPAL ANAYA 07/10 [facility] EYE EXAM NEW PATIENT [id number] Diagnos is: ICD-10- CM H25.013 Cortica l age-rel ated catarac t, bilater al
DARLENE CRUZ 07/10 [facility] Outpatient Encounter [id number] 07/10 [facility] [facility] FIT SPECTACLES MONOFOCAL [id number] Diagnos is: ICD-10- CM Z46.0 Encount er for fit/adj st of spectac les and contact lenses< br/> CARYL MARCUS 07/11 [facility] OFFICE O/P EST LOW 20-29 MIN [id number] Diagnos is: ICD-10- CM F25.0 Schizoa ffectiv e disorde r, bipolar type
Yanni LONG MD 07/17 [facility] Outpatient Encounter [id number] 07/19 [facility] Encounter [id number] 07/21 [facility] Out[facility] Encounter [id number] 08/12 [facility] CASE MANAGEMENT [id number] Diagnos is: ICD-10- CM Z65.3 Problem s related to other legal circums tances< br/> JENNIFER,HEIDI NA E 09/10 [facility] PSYTX W PT 30 MINUTES [id number] Diagnos is: ICD-10- CM F25.0 Schizoa ffectiv e disorde r, bipolar type
JOSE,ALLIS ON A 09/11 [facility] Outpatient Encounter [id number] 09/26 [facility] PSYTX W PT 30 MINUTES [id number] Diagnos is: ICD-10- CM F25.0 Schizoa ffectiv e disorde r, bipolar type
JOSEALLIS ON A 11/19 [facility] OFFICE O/P EST LOW 20 MIN [id number] Diagnos is: ICD-10- CM F25.0 Schizoa ffectiv e disorde r, bipolar type
Yanni LONG MD 11/19 [facility] Encounter [id number] 11/19 [facility] Out[facility] Encounter [id number] 12/02 [facility] Out[facility] Encounter [id number] 01/01 [facility] Encounter [id number] 01/01 [facility] OFF/OP EST MAY X REQ PHY/QHP [id number] Diagnos is: ICD-10- CM F10.24 Alcohol depende nce with alcohol -induce d mood disorde r
Meredith SCOTT 04/08 [facility] OFFICE O/P EST MOD 30 MIN [id number] Diagnos is: ICD-10- CM I10 Essenti al (primar y) hyperte nsion<b r/> DOPAL PERSON 06/09 [facility] Out[facility] Encounter [id number] 06/10 [facility] OFFICE O/P EST LOW 20 MIN [id number] Diagnos is: ICD-10- CM F25.0 Schizoa ffectiv e disorde r, bipolar type
Yanni LONG MD 06/17 [facility] Encounter [id number] Brian YANCEYSA H 07/01 [facility] Out[facility] Encounter [id number] [facility] OFFICE O/P NEW MOD 45 MIN [id number] 1. Diagnos is: ICD-10- CM M54.59 Other low back pain
MITRA BRAR RA 07/06 [facility] ORTHC/PROS TC MGMT SBSQ ENC [id number] 1. Diagnos is: ICD-10- CM M25.562 Pain in left knee
Brian SHAFFER 07/06 [facility] Out[facility] Encounter [id number] 1.07/06 [facility] HC PRO PHONE CALL 5-10 MIN [id number] Diagnos is: ICD-10- CM Z71.89 Other specifi ed apprise counselor ing<br/ > YAJAIRA VALENCIA H 07/06 [facility] Out[facility]counter [id number] 1.07/13 [facility] Out[facility] Encounter [id number] [facility] OFFICE O/P EST MOD 30 MIN [id number] Diagnos is: ICD-10- CM I10 Essenti al (primar y) hyperte nsion<b r/> OPAL ANAYA 07/14 [facility] Out[facility] Encounter [id number] 1.07/22 [facility] Encounter [id number] [facility] Out[facility] Encounter [id number] 07/27 [facility] OFFICE O/P EST LOW 20 MIN [id number] Diagnos is: ICD-10- CM F25.0 Schizoa ffectiv e disorde r, bipolar type
Yanni LONG MD 07/28 [facility] Out[facility] Encounter [id number] 07/28 [facility] Out[facility] Encounter [id number] 08/09 [facility] OFFICE O/P NEW SF 15 MIN [id number] Diagnos is: ICD-10- CM L60.3 Nail dystrop hy
FRANCISCO NESBITT 08/10 [facility] Out[facility] Encounter [id number] 08/23 [facility] Out[facility] Encounter [id number] 08/26 [facility] Out[facility] Encounter [id number] 08/27 [facility] Procedures Combined list of: 1) Procedures from Department of Veterans Affairs facilities going back up to thelast 18 months, not all VA non-surgical procedures are included; 2) All procedures from the Department of Defense facilities. 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 GOYO OZUNA Alcohol and/or drug services; group counseling by a clinician GOYO FRIAS Psychotherapy Individual Approximately 45 Minutes Psychotherapy Individual Approximately 45 Minutes 04851 007 GOYO OZUNA Medical Nutrition Therapy Group (2 or More Individuals) Each 30 Minutes Medical Nutrition Therapy Group (2 or More Individuals) Each 30 Minutes [id number] 007 SAW SHEARER [facility] Behavioral health; short-term residential (non-hospital residential treatment program), without room and board, 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 GOYO OZUNA Alcohol and/or drug services; group counseling by a clinician GOYO FRIAS Psychiatric Diagnostic Evaluation Comprehensive Examination Psychiatric Diagnostic Evaluation Comprehensive Examination 80980 007 GOYO OZUNA Psychiatric Diagnostic Evaluation Comprehensive Examination Psychiatric Diagnostic Evaluation Comprehensive Examination 66959 007 BRETT PRATER [facility] Venipuncture Venipuncture 03188 OMEGA NIEVES Breathalyzer For Blood Alcohol Content Breathalyzer For Blood Alcohol Content 85973 007 OMEGA NIEVES Physician Supervised Services Provision Of Educational Supplies Physician Supervised Services Provision Of Educational Supplies 77207 CHARISSA FLETCHER Behavioral health counseling and therapy, [...] Comprehensive Examination Psychiatric Diagnostic Evaluation Comprehensive Examination 00107 DAI MCDOWELL Spectacles Services Fitting Monofocal Except For Aphakia Spectacles Services Fitting Monofocal Except For Aphakia 79401 KEN GARCIA Determination Of Refractive State Determination Of Refractive State 00479 KEN GARCIA Ophthalmological Prior Patient Start Comprehensive Care Ophthalmological Prior Patient Start Comprehensive Care 04640 KEN GARCIA Td Vaccine Seven Years Of Age And Above Td Vaccine Seven Years Of Age And Above 32093 DIANA RACHEL Immunization Administration By Injection, One Vaccine Immunization Administration By Injection, One Vaccine 65452 DIANA RACHEL Hepatitis B Vaccine (Active) Adult Dosage DIANA RACHEL Immunization Administration By Injection, One Vaccine Immunization Administration By Injection, One Vaccine 94092 DIANA RACHEL Immunization Administration By Injection, One Vaccine Immunization Administration By Injection, One Vaccine 20580 DIANA RACHEL Hepatitis B Vaccine (Active) Adult Dosage RACHEL, DIANA S DoD Immunization Administration By Injection, One Vaccine Immunization Administration By Injection, One Vaccine 08530 006 MILAGRO MARTELL DoD Typhoid Vaccine Vi Capsular Polysaccharide, For Intramus Use Typhoid Vaccine Vi Capsular Polysaccharide, For Intramus Use 74875 006 MILAGRO MARTELL [facility] Chiropractic Manip Treatmt (CMT) Spinal One To Two Regions Chiropractic Manip Treatmt (CMT) Spinal One To Two Regions 86663 006 BHATTI, [place] N DoD Modalities Heat Hot Packs Modalities Heat Hot Packs 61551 006 BHATTI, [place] cx, tx 20 mins DoD Mobilization Soft Ti ue Mobilization Soft Tissue 34974 006 BHATTI, [place] N pivot tx subocc. 8m DoD A isted Exercises For ROM Assisted Exercises For ROM 56208 006 BHATTI, [place] N 02/28/2006 DoD Modalities Electrical Stimulation Unattended Modalities Electrical Stimulation Unattended 26167 006 BHATTI, [place] N IFC, 50-150, 100% 20 mins, left mid back, max 18 DoD Modalities Traction Modalities Traction 50417 0 006 BHATTI, [place] N intersegmental: tx 10, lx 7 10 mins DoD Chiropractic Manip Treatmt (CMT) Spinal One To Two Regions Chiropractic Manip Treatmt (CMT) Spinal One To Two Regions 99476 006 BH[place]TI, [place] N DoD Modalities Traction Modalities Traction 04811 0 006 BHATTI, [place] Intersegmental - tx 10, lx 7, 10 min. DoD Modalities Electrical Stimulation Unattended Modalities Electrical Stimulation Unattended 80108 006 BH[place], [place] IFC, 100%, 80-150, 20 min, left tx paraspinal, max 20 DoD Modalities Heat Hot Packs Modalities Heat Hot Packs 34606 006 BHATTI, [place] Upper back 20 mins DoD A isted Exercises For ROM Assisted Exercises For ROM 85300 006 BHATTI, [place] N 02/28/06 DoD Mobilization Soft Ti ue Mobilization Soft Tissue 07280 006 BHATTI, [place] N pivot tx subocc 8m DoD Chiropractic Manip Treatmt (CMT) Spinal One To Two Regions Chiropractic Manip Treatmt (CMT) Spinal One To Two Regions 73517 006 BH[place]TI, [place] N DoD A isted Exercises For ROM Assisted Exercises For ROM 99939 006 BHATTI, [place] N 02/28/06 10m, reviewed with patient. DoD Modalities Traction Modalities Traction 47628 0 006 BHATTI, [place] N tx 10, lx 7, 10 mins DoD Modalities Heat Hot Packs Modalities Heat Hot Packs 06725 006 BHATTI, [place] N tx 20 mins DoD Mobilization Soft Ti ue Mobilization Soft Tissue 63285 006 BHATTI, [place] pivot tx subocc 8m DoD Modalities Electrical Stimulation Unattended Modalities Electrical Stimulation Unattended 36608 006 BHATTI, [place] N IFC, 100%, 80-150, 20 mins, left midback, max 18 DoD Chiropractic Manip Treatmt (CMT) Spinal One To Two Regions Chiropractic Manip Treatmt (CMT) Spinal One To Two Regions 95404 006 BHATTI, [place] N DoD Mobilization Soft Ti ue Mobilization Soft Tissue 06277 006 BHATTI, [place] N pivot tx subocc. 8m DoD Modalities Electrical Stimulation Unattended Modalities Electrical Stimulation Unattended 18433 006 BHATTI, [place] N IFC 100% 80-150. 20 mins, left interscapular region, max 21 DoD Modalities Traction Modalities Traction 06050 0 006 BHATTI, [place] N Intersegmental - tx 9, lx 7, 10 min. DoD Modalities Heat Hot Packs Modalities Heat Hot Packs 78358 006 BHATTI, [place] N 20 mins tx DoD A isted Exercises For ROM Assisted Exercises For ROM 81257 006 BHATTI, [place] N 02/28/06 DoD Chiropractic Manip Treatmt (CMT) Spinal One To Two Regions Chiropractic Manip Treatmt (CMT) Spinal One To Two Regions 53636 006 BHATTI, [place] N DoD A isted Exercises For ROM Assisted [place]ises [place] ROM 80382 006 BHATTI, [place] N 02/28/2006 DoD Mobilization Soft Ti ue Mobilization Soft Tissue 66193 006 BHATTI, [place] pivot tx subocc 10m DoD Modalities Heat Hot Packs Modalities Heat Hot Packs 73316 006 BHATTI, [place] N 20 mins neck/upper back DoD Modalities Traction Modalities Traction 22171 0 006 BHATTI, [place] N Intersegmental - tx 9 , lx 7 , 10 min. DoD Modalities Electrical Stimulation Unattended Modalities Electrical Stimulation Unattended 95322 006 BH[place]TI, [place] N IFC- 100% 80-150, 20 mins, left interscapular region, max 26 DoD Chiropractic Manip Treatmt (CMT) Spinal One To Two Regions Chiropractic Manip Treatmt (CMT) Spinal One To Two Regions 79298 006 BH[place]TI, [place] N DoD Modalities Electrical Stimulation Unattended Modalities Electrical Stimulation Unattended 27850 006 BHATTI, [place] N IFC, 100%, 80-150, 20 min, left interscap, max 21 pt notes relief. DoD Modalities Traction Modalities Traction 00817 0 006 BHATTI, [place] N Intersegmental - tx 9, lx 7, 10 min. DoD A isted Exercises For ROM Assisted [place] ROM 39671 006 BHATTI, [place] N Cervical Therex: Tension release stretches for the neck. Reviewed with patient, handout provided. Corrective postural therex: Anterior chest/pec. major stretch, standing wall posture ex. for the neck and mid back. Reviewed with patient, handout provided. DoD Mobilization Soft Ti ue Mobilization Soft Tissue 55681 006 BHATTI, [place] N pivot tx subocc 10m DoD Modalities Heat Hot Packs Modalities Heat Hot Packs 81126 006 BHATTI, [place] N 20m tx. 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 [facility] This section is an empty social history section. [facility] Plan of Care List of future care activities from [facility] of [facility] facilities. Additional future care activities may be listed in the Assessment and Plan section. Date/Time Care Activity Care Activity Detail Facili ty 09/20/2024 AMBULATORY - MEDICINE [facility] 11/10/2024 AMBULATORY - MEDICINE [facility] 07/19/2024 Consult Order COMMUNITY CARE-D ENTAL GENERAL Cons Tufter Operator's Choice [facility] 07/22/2024 Consult Order COMMUNITY CARE-D ENTAL GENERAL Cons Tufter Operator's Choice [facility] 07/22/2024 Consult Order COMMUNITY CARE-D ENTAL GENERAL Cons Tufter Operator's Choice [facility] Advance Directives List of completed, amended, or rescinded Advance Directives on record at [facility] of [facility] facilities. An actual copy of the Directive is not included. Date Advance Directive Provider Source 03/06/2023 ADVANCE DIRECTIVE BEV PETTIT [facility] 04/20/2020 ADVANCE DIRECTIVE DISCUSSION ERUM MARTÍNEZ [facility] 02/24/2020 ADVANCE DIRECTIVE DISCUSSION POOL FUENTES [facility] 10/30/2016 ADVANCE DIRECTIVE KULDEEP [facility]
--- OUTSIDE RECORDS SUMMARY | 2024-08-31 21:49 | XMS_ITS | Encounter Summary ---
Author Name [facility] [place] Organization [facility] [place] Address [address] [place] [address] Care Team Providers Care Display Associate Name Role Phone ELISSA MARTIN Primary Care Provider OPAL Mckay Primary Care Provider Unajerome ailable Selected Encounter This section includes the information on record at [place] for the Encounter. Date/Time Encounter Type Encounter Description Reason Provider Source Apr 08, 2024 12:00 PM OFF/OP EST JANUARY X REQ PHY/Q [facility] - IND ICD-10-CM F10.24 Alcohol dependence with alcohol-induced mood disorder JODIE SCOTT [facility] Encounter Template Text not used by [place] Assessments - Encounter Diagnoses This section includes the primary and secondary diagnoses documented for the Encounter. Date/Time Primary/Secondary Diagnosis Diagnosis Name Provider Source Apr 09, 2024 08:49 AM PRIMARY Alcohol dependence with alcohol-induced mood disorder JODIE SCOTT [facility] Plan of Treatment: Future Appointments (+ 6 months) and Future Tests (+/- 45 days) The Plan of Treatment section includes future care activities for the patient from all [place] treatmentfacilities. This section includes future appointments and future orders which are active, pending or scheduled. Future Appointments This section includes appointments that were scheduled to occur 6 months from the date of the Encounter, up to a maximum of 20 appointments. The data comes from all [place] treatment facilities. Appointment Date/Time Appointment Type Appointme nt Facility Name Jun 09, 2024 01:30 PM AMBULATORY - MEDICINE [facility] [place] [facility] Jun 17, 2024 02:00 PM AMBULATORY - PSYCHIATRY [facility] [place] [facility] Jul 06, 2024 01:00 PM AMBULATORY - MEDICINE [facility] [place] [facility] Jul 06, 2024 02:00 PM AMBULATORY - REHAB MEDICIN E [facility] [place] [facility] Jul 13, 2024 02:30 PM AMBULATORY - MEDICINE [facility] [place] [facility] Jul 14, 2024 10:30 AM AMBULATORY - MEDICINE [facility] [place] [facility] Jul 20, 2024 03:30 PM AMBULATORY - MEDICINE [facility] [place] [facility] Jul 26, 2024 01:30 PM AMBULATORY - MEDICINE [facility] [place] [facility] Jul 28, 2024 10:30 AM AMBULATORY - PSYCHIATRY [facility] [place] [facility] Aug 10, 2024 10:00 AM AMBULATORY - MEDICINE [facility] [place] [facility] Aug 10, 2024 03:00 PM AMBULATORY - MEDICINE [facility] [place] [facility] Sep 20, 2024 03:00 PM AMBULATORY - MEDICINE [facility] [place] [facility] Social History: Smoking Status (Most current) and Tobacco Use (All prior to encounter date) This section includes the most current, and the historical, smoking and tobacco- related health factors from the [place] facility where the Encounter took place. Current Smoking Status This section includes the most current smoking, or tobacco-related health factor, from the [place] facility where the Encounter took place. Date/Time Current Smoking Status Comment Facil margie Nov 19, 2023 10:00 AM VA-TOBACCO USER EVERY DAY [facility] Tobacco Use History This section includes a history of the smoking, or tobacco-related health factors, that were collected on or before the date of the Encounter. The data comes from the [place] facility where the Encounter took place. Date/Time Smoking Status/Tobac co Use Comment Facility Nov 19, 2023 10:00 AM VA-TOBACCO USE ADVICE [facility] [place] [facility] Nov 19, 2023 10:00 AM VA-TOBACCO USE ACCOUNTANT NO [facility] [place] [facility] Nov 19, 2023 10:00 AM VA-TOBACCO USE MED NO [facility] [place] [facility] Nov 19, 2023 10:00 AM VA-TOBACCO USE WI 30 MIN OF WAKEUP [facility] [place] [facility] Nov 19, 2023 10:00 AM VA-TOBACCO USER EVERY DAY [facility] [place] [facility] February 10, 2023 01:00 PM ORYX ADMIT TOBACCO SCREEN YES [facility] [place] [facility] February 10, 2023 01:00 PM ORYX ADMIT TOBACCO USE CIGS GR 5D [facility] [place] [facility] February 10, 2023 01:00 PM ORYX DAILY TOBACCO ACCOUNTANT RECEIVED [facility] [place] [facility] February 10, 2023 01:00 PM ORYX DAILY TOBACCO MEDS ORDERED [facility] [place] [facility] Sep 02, 2022 08:00 AM VA-TOBACCO USE 30 YEARS OR MORE [facility] [place] [facility] Sep 02, 2022 08:00 AM VA-TOBACCO USE ADVICE [facility] [place] [facility] Sep 02, 2022 08:00 AM VA-TOBACCO USE ACCOUNTANT YES [facility] [place] [facility] Sep 02, 2022 08:00 AM VA-TOBACCO USE MED NOTIFY PROVIDER [facility] [place] [facility] Sep 02, 2022 08:00 AM VA-TOBACCO USE WI 30 MIN OF WAKEUP [facility] [place] [facility] Sep 02, 2022 08:00 AM VA-TOBACCO USER EVERY DAY [facility] [place] [facility] Oct 12, 2016 09:13 AM QUIT TOBACCO USE 1-7 YEARS AGO [facility] [place] [facility] Sep 25, 2015 10:24 AM QUIT TOBACCO USE 1-7 YEARS AGO [facility] [place] [facility] Oct 05, 2013 03:03 PM QUIT TOBACCO USE 1-7 YEARS AGO PT HAS QUIT LES THAN A YEAR AGO. [facility] Oct 05, 2013 03:03 PM QUIT TOBACCO USE IN PAST YEAR [facility] Advance Directives: All historical and current Section Date Range: From patient's date of to the date document was created. This section includes ALL of a patient's completed or amended [place] Advance and Rescinded Directives. The entries below indicate that a directive exists for the patient, but an actual copy is not included with this document. The data comes from all [place] facilities. Date Advance Directives Provider Source Mar 06, 2023 ADVANCE DIRECTIVE BEV PETTIT [facility] Mar 06, 2023 ADVANCE DIRECTIVE DISCUSSION BEV PETTIT [facility] Apr 20, 2020 ADVANCE DIRECTIVE DISCUSSION ERUM MARTÍNEZ [facility] Feb 24, 2020 ADVANCE DIRECTIVE DISCUSSION POOL FUENTES [facility] Oct 30, 2016 ADVANCE DIRECTIVE KULDEEP FAM [facility] Encounter Notes: All associated encounter notes This section contains the clinical notes associated to the Encounter. Date/Time Encounter Note(s) Provider Source Apr 09, 2024 08:39 AM MENTAL HEALTH NURS ING NOTE: LOCAL TITLE: MENTAL HEALTH/NURSING INDIVIDUAL STANDARD TITLE: MENTAL HEALTH NURSING NOTE DATE OF NOTE: APR 09, 2024@08:39 ENTRY DATE: APR 09, 2024@08:39:09 AUTHOR: JAYLA SCOTT COSIGNER: URGENCY: STATUS: COMPLETED S: Janeth Sanchez (identified by full name, full SSN and ) self-presented to [facility] to request a letter for probation stating that the Psychologist he was seeing retired recently (Dr. Ernestine Mcgrath). He is also considering reengaging in services ( meds and possibly individual therapy). B/A: calm, cooperative and appropriate. Hx TBI so can become overwhelmed/confused somewhat easily if presented with too much info at once. Denies SI/HI and denies active alcohol use. [facility] appears to have established MH services: Uniform MH Intake completed 04/21/23; most recent visit with Psychiatrist, Dr. Villanueva, on 11/19/23; and hx of seeing both Dr. Ernestine Mcgrath (via [facility]) and J[facility] Santos via [facility] for indivudal therapy services intermittently. RN explained that should he wish to restart MH medications, he can be scheduled for next avail appt with Dr. Villanueva. Should he wish to reengage in [facility] Individual Therapy, RN can reach out to [facility] to see if this is still an option (hx alcohol dependence). R/P: RN wrote letter as requested (addressed to him to give to [facility] ). RN also left [facility] a per [facility] request (but she is out of office until 04/14/24). C: Kay (as FYI) C: Danielle (as FYI) /brown/ JAYLA SCOTT MSN, RN [facility] REGISTERED NURSE Signed: 04/09/2024 08:49 Receipt Acknowledged By: 04/13/2024 09:08 /brown/ MARY SANTOS [facility] Medical Coding Manager 04/09/2024 10:18 /brown/ JAMES VILLANUEVA JR, MD STAFF PSYCHIATRIST JAYLA SCOTT [facility]
--- OUTSIDE RECORDS SUMMARY | 2024-08-31 21:49 | XMS_ITS | Encounter Summary ---
Author Name [facility] [place] Organization [facility] [place] Address [address] [place] [address] Care Team Providers Care Court Attendant Name Role Phone MARTIN BOWERS Primary Care Provider OPAL Mckay Primary Care Provider Unav ailable Selected Encounter This section includes the information on record at [place] for the Encounter. Date/Time Encounter Type Encounter Description Reason Pro vider Source Dec 03, 2023 10:30 AM Outpatient Encounter [facility] - [facility] Encounter Template Text not used by [place] Social History: Smoking Status (Most current) and [...] 2023 10:00 AM VA-TOBACCO USER EVERY DAY [facility] Tobacco Use History This section includes a history of the smoking, or tobacco-related health factors, that were collected on or before the date of the Encounter. The data comes from the [place] facility where the Encounter took place. Date/Time Smoking Status/Tobac co Use Comment Facility Nov 19, 2023 10:00 AM VA-TOBACCO USE ADVICE [facility] [place] [facility] Nov 19, 2023 10:00 AM VA-TOBACCO USE UROLOGIC SURGEON NO [facility] [place] [facility] Nov 19, 2023 10:00 AM VA-TOBACCO USE MED NO [facility] [place] [facility] Nov 19, 2023 10:00 AM VA-TOBACCO USE WI 30 MIN OF WAKEUP [facility] [place] [facility] Nov 19, 2023 10:00 AM VA-TOBACCO USER EVERY DAY [facility] [place] [facility] February 10, 2023 01:00 PM ORYX ADMIT TOBACCO SCREEN YES [facility] [place] [facility] February 10, 2023 01:00 PM ORYX ADMIT TOBACCO USE CIGS GR 5D [facility] [place] [facility] February 10, 2023 01:00 PM ORYX DAILY TOBACCO UROLOGIC SURGEON RECEIVED [facility] [place] [facility] February 10, 2023 01:00 PM ORYX DAILY TOBACCO MEDS ORDERED [facility] [place] [facility] Sep 02, 2022 08:00 AM VA-TOBACCO USE 30 YEARS OR MORE [facility] [place] [facility] Sep 02, 2022 08:00 AM VA-TOBACCO USE ADVICE [facility] [place] [facility] Sep 02, 2022 08:00 AM VA-TOBACCO USE UROLOGIC SURGEON YES [facility] [place] [facility] Sep 02, 2022 08:00 AM VA-TOBACCO USE MED NOTIFY PROVIDER [facility] [place] [facility] Sep 02, 2022 08:00 AM VA-TOBACCO USE WI 30 MIN OF WAKEUP [facility] [place] [facility] Sep 02, 2022 08:00 AM VA-TOBACCO USER EVERY DAY [facility] [place] [facility] Oct 12, 2016 09:13 AM QUIT TOBACCO USE 1-7 YEARS AGO [facility] [place] [facility] Sep 25, 2015 10:24 AM QUIT TOBACCO USE 1-7 YEARS AGO [facility] [place] [facility] Oct 05, 2013 03:03 PM QUIT TOBACCO USE 1-7 YEARS AGO PT HAS QUIT LES THAN [facility] AGO[facility] Oct 05, 2013 03:03 PM QUIT TOBACCO USE IN PAST YEAR [facility] Advance Directives: All historical and current [...] ADVANCE DIRECTIVE DISCUSSION BEV PETTIT [facility] Mar 06, 2023 ADVANCE DIRECTIVE BEV PETTIT [facility] Apr 20, 2020 ADVANCE DIRECTIVE DISCUSSION ERUM MARTÍNEZ [facility] Feb 24, 2020 ADVANCE DIRECTIVE DISCUSSION POOL FUENTES [facility] Oct 30, 2016 ADVANCE DIRECTIVE KULDEEP FAM [facility] Encounter Notes: All associated encounter notes This section contains the clinical notes associated to the Encounter. Date/Time Encounter Note(s) Provider Source Dec 08, 2023 11:46 AM ADMINISTRATIVE NOTE: LOCAL TITLE: ADMINISTRATIVE RECALL NOTE STANDARD TITLE: ADMINISTRATIVE NOTE DATE OF NOTE: DEC 08, 2023@11:46 ENTRY DATE: DEC 08, 2023@11:46:37 AUTHOR: SHELLI DAVE EXP COSIGNER: URGENCY: STATUS: COMPLETED ADMINISTRATIVE RECALL NOTE Has ADDENDA RTC orders: Unable to contact patient: Attempts to contact: 1st attempt: Left voicemail 2nd attempt: Letter mailedDisposition onNov 3rd attempt: left vm 4th attempt: /brown/ SHELLI DAVE [employer] MASTER Signed: 12/08/2023 11:47 12/10/2023 ADDENDUM STATUS: COMPLETED RTC orders: Unable to contact patient: Attempts to contact: 1st attempt: Left voicemail 2nd attempt: Letter mailedDisposition onNov 3rd attempt: left vm 4th attempt: Left vm /brown/ SHELLI DAVE [employer] MASTER Signed: 12/10/2023 14:32 SHELLI DAVE [facility]
--- OUTSIDE RECORDS SUMMARY | 2024-08-31 21:53 | XMS_ITS | Encounter Summary ---
Author Name [facility] Organization [facility] Address [address] [place] [address] Care Team Providers Care Instrument Tech Name Role Phone MARTIN BOWERS Primary Care Provider OPAL Mckay Primary Care Provider Unav ailable Selected Encounter This section includes the information on record at [place] for the Encounter. Date/Time Encounter Type Encounter Description Reason Pro vider Source Jul 26, 2024 03:02 PM Outpatient Encounter PRIMARY CARE/MEDICINE IHE Encounter Template Text not used by [place] Plan of Treatment: Future Appointments (+ 6 months) and Future Tests (+/- 45 days) The Plan of Treatment section includes future care activities for the patient from all [place] treatmentfacilities. This section includes future appointments and future orders which are active, pending or scheduled. Future Appointments This section includes appointments that were scheduled to occur 6 months from the date of the Encounter, up to a maximum of 20 appointments. The data comes from all [place] treatment facilities. Appointment Date/Time Appointment Type Appointme nt Facility Name Jul 28, 2024 10:30 AM AMBULATORY - PSYCHIATRY [place] [facility] [place] [facility] Aug 10, 2024 10:00 AM AMBULATORY - MEDICINE [facility] [place] [facility] Aug 10, 2024 03:00 PM AMBULATORY - MEDICINE [facility] [place] [facility] Sep 20, 2024 03:00 PM [facility] Nov 10, 2024 10:00 AM [facility] Active, Pending, and Scheduled Orders This section includes a listing of several types of active, pending, and scheduled orders, including clinic medications orders, diagnostic test orders, procedure orders and consult orders; where the start date of the order is 45 days before the date of the Encounter or 45 days after the date of theEncounter. The data comes from all [place] treatment facilities. Test Date/Time Test Type Test Details Facility Name Jul 14, 2024 10:55 AM Consult Order REHAB MEDI CINE/NHM OUTPT Cons Fire Official's [facility] Jul 19, 2024 11:25 AM Consult Order COMMUNITY CARE-DENTAL GENERAL Cons Fire Official's Choice [facility] Jul 22, 2024 08:51 AM Consult Order COMMUNITY CARE-DENTAL GENERAL Cons Fire Official's Choice [facility] Jul 22, 2024 01:51 PM Consult Order COMMUNITY CARE[facility] GENERAL Cons [facility] Lab Results: +/- 30 days of the encounter This section includes the Chemistry and Hematology Lab Results on record with [place] for the patient. Radiology Reports and Pathology Reports are provided separately, in subsequent sections. Lab Results This section contains the Chemistry/Hematology Results that were resulted 30 days before or 30 daysafter the date of the Encounter. Date/Time Source Result Type Result - Unit Interpretation Reference Range Comment Jul 06, 2024 02:09 PM [facility] LIPID PANEL FASTING Specimen Type: SERUM No comment entered. Ordering Provider: PERRY LONG MD Report Released Date/Time: Jun 17, 2024 02:14 PM Reporting Lab: [address] [address] Performing Lab: [address] [address] CHOLESTEROL 251 mg/dL H TRIGLYCERIDE 70 mg/dL 0-150 LDL calculated 171 mg/dL H 0-129 CHOL/HDL 3.8 HDL CHOLESTEROL 66 mg/dL H 40-60 Jul 06, 2024 02:09 PM [facility] HEMOGLOBIN A1C PANEL Specimen Type: [...] Jul 01, 2024 03:56 PM Reporting Lab: [address] [address] Performing Lab: [address] [address] HEMOGLOBIN A1C 4.9 4.0-5.6 Jul 06, 2024 02:09 PM [facility] CALCIUM Specimen Type: SERUM No comment entered. Ordering Provider: Brian REEVES Report Released Date/Time: Jul 01, 2024 03:56 PM Reporting Lab: [address] [address] Performing Lab: [address] [address] CALCIUM 9.8 mg/dL 8.5-10.2 Jul 06, 2024 02:09 PM [facility] LIVER FUNCTION Specimen Type: SERUM No comment entered. Ordering Provider: Brian REEVES Report Released Date/Time: Jul 01, 2024 03:56 PM Reporting Lab: [address] [address] Performing Lab: [address] [address] PROTEIN,TOTAL 7.4 g/dL 6.0-8.3 ALBUMIN 4.4 g/dL 3.5-5.0 ALKALINE PHOSPHATASE 95 U/L 40-150 AST 21 U/L 5-34 ALT 34 U/L BILIRUBIN, TOTAL 0.4 mg/dL 0.2-1.2 Jul 06, 2024 02:09 PM [facility] BASIC METABOLIC PANEL (non-fasting) Specimen Type: SERUM No comment entered. Ordering Provider: Brian REEVES Report Released Date/Time: Jul 01, 2024 03:56 PM Reporting Lab: [address] [address] Performing Lab: [address] [address] UREA NITROGEN 19 mg/dL 7-25 GLUCOSE 90 mg/dL 65-100 SODIUM 139 mmol/L 135-145 POTASSIUM 4.8 mmol/L 3.5-5.0 CHLORIDE 104 mmol/L 100-110 CO2 26 meq/L 20-30 CREATININE, Serum 1.04 mg/dL 0.50-1.40 eGFR(CKD-EPI 2020) 87 mL/min >60 Jul 06, 2024 02:09 PM [facility] CBC AND DIFF (AUTO) Specimen Type: BLOOD No comment entered. Ordering Provider: Brian REEVES Report Released Date/Time: Jul 01, 2024 03:56 PM Reporting Lab: [facility] [address] [facility] [address] Performing Lab: [address] [address] WBC 8.69 10*3/uL 4.50-11.00 RBC 5.01 10*6/uL [...] and tobacco- related health factors from the [place] facility where the Encounter took place. Current Smoking Status This section includes the most current smoking, or tobacco-related health factor, from the [place] facility where the Encounter took place. Date/Time Current Smoking Status Comment [facility] Nov 19, 2023 10:00 AM VA-TOBACCO USE WI 30 MIN OF WAKEUP [facility] Tobacco Use History This section includes a history of the smoking, or tobacco-related health factors, that were collected on or before the date of the Encounter. The data comes from the [place] facility where the Encounter took place. Date/Time Smoking Status/Tobac co Use Comment Facility Nov 19, 2023 10:00 AM VA-TOBACCO USE ADVICE [place] [facility] [place] [facility] Nov 19, 2023 10:00 AM VA-TOBACCO USE SECRET SERVICE AGENT NO [place] [facility] [place] [facility] Nov 19, 2023 10:00 AM VA-TOBACCO USE MED NO [place] [facility] [place] [facility] Nov 19, 2023 10:00 AM VA-TOBACCO USE WI 30 MIN OF WAKEUP [facility] [place] [facility] Nov 19, 2023 10:00 AM VA-TOBACCO USER EVERY DAY [facility] [place] [facility] February 10, 2023 01:00 PM ORYX ADMIT TOBACCO SCREEN YES [facility] February 10, 2023 01:00 PM ORYX ADMIT TOBACCO USE CIGS GR 5D [facility] February 10, 2023 01:00 PM ORYX DAILY TOBACCO SECRET SERVICE AGENT [facility]ED [facility] February 10, 2023 01:00 PM ORYX DAILY TOBACCO MEDS ORDERED [facility] Sep 02, 2022 08:00 AM VA-TOBACCO USE 30 YEARS OR MORE [facility] Sep 02, 2022 08:00 AM VA-TOBACCO USE ADVICE [facility] Sep 02, 2022 08:00 AM VA-TOBACCO USE SECRET SERVICE AGENT YES [facility] Sep 02, 2022 08:00 AM VA-TOBACCO USE MED NOTIFY PROVIDER [facility] Sep 02, 2022 08:00 AM VA-TOBACCO USE WI 30 MIN OF WAKEUP [facility] Sep 02, 2022 08:00 AM VA-TOBACCO USER EVERY DAY [facility] Oct 12, 2016 09:13 AM QUIT TOBACCO USE 1-7 YEARS AGO [facility] Sep 25, 2015 10:24 AM QUIT TOBACCO USE 1-7 YEARS AGO [facility] Oct 05, 2013 03:03 PM QUIT TOBACCO USE 1-7 YEARS AGO PT HAS QUIT LES THAN A YEAR AGO. [facility] Oct 05, 2013 03:03 PM QUIT TOBACCO USE IN PAST YEAR [facility] Advance Directives: All historical and current Section Date Range: From patient's date of to the date document was created. This section includes ALL of a patient's completed or amended [place] Advance and Rescinded Directives. The entries below indicate that a directive exists for the patient, but an actual copy is not included with this document. The data comes from all [place] facilities. Date Advance Directives Provider Source Mar 06, 2023 ADVANCE DIRECTIVE BEV PETTIT [facility] Mar 06, 2023 ADVANCE DIRECTIVE DISCUSSION BEV PETTIT [facility] Apr 20, 2020 ADVANCE DIRECTIVE DISCUSSION ERUM MARTÍNEZ [facility] Feb 24, 2020 ADVANCE DIRECTIVE DISCUSSION POOL FUENTES [facility] Oct 30, 2016 ADVANCE DIRECTIVE KULDEEP FAM [facility] Radiology Reports: +/- 30 days [...] the Encounter. The data comes from all [place] treatment facilities. Date/Time Radiology Report Provider Source Jul 14, 2024 11:13 AM KNEE 3 VIEWS (LEFT ): JEYSON SANCHEZ [id number] -[id number] M Ex Date: JUL 14, 2024@11:13 Req Phys: OPAL REEVES Pat Loc: CWM/NO/PACT 4 (Req'g Loc) Img Loc: [facility] 1 Service: [place] [address] (Case [id number] COMPLETE) KNEE 3 VIEWS (LEFT) (RAD Detailed) CPT:56596 Reason for Study: 5 yrs of left knee pain Clinical History: Report Status: Verified Date Reported: JUL 14, 2024 Date Verified: JUL 14, 2024 Medical Numerical Control Operator E-Sig:/ES/LIA JACINTO JR Report: Study: AP [...] Primary Interpreting Staff: LIA JACINTO JR, Radiologist (Medical Numerical Control Operator) /LIA CARPENTER JR [facility] Encounter Notes: All associated encounter notes This section contains the clinical notes associated to the Encounter. Date/Time Encounter Note(s) Provider Source Jul 28, 2024 11:10 AM ADDENDUM: LOCAL TITLE: Addendum STANDARD TITLE: ADDENDUM DATE OF NOTE: JUL 28, 2024@11:10:46 ENTRY DATE: JUL 28, 2024@11:10:47 AUTHOR: NEEMA YANCEY EXP COSIGNER: URGENCY: STATUS: COMPLETED RN updated updated about this and offered pain clinc is upset but agrees to pain clinc consult and terminates call /es/ NEEMA YANCEY REGISTERED NURSE Signed: 07/28/2024 11:12 Receipt Acknowledged By: 07/28/2024 16:32 /brown/ OPAL REEVES MD PHYSICIAN ========= --- Original Document --- 07/26/24 WALK-IN NOTE PRIMARY CARE (T): <====Click to Start Advanced Medical Support presents to the Primary Care clinic with the following request: [ ]Medication Renewal/Refill [ ]Consultation with Team RN [ ]Symptoms [ X ]Other-[place] req med stronger then Aspirin for pain. Will you need appt. [place] seen 07/14 The states they are: [ ]Waiting [ [...] 10:30 CWM/NO/MHC/ETHAN 08/10/2024 10:00 CWM/NO/PODIATRY A 08/24/2024 10:00 NHM DENTAL DMD 2 08/24/2024 11:30 NHM/OPTOMETRY/FRANCIS/ 08/24/2024 14:00 CWM/NO/MED REHAB 1 PA 09/20/2024 15:00 CWM/NO/PACT 4 11/10/2024 10:00 CWM/NO/PACT 4 /es/ QUINN WONG Advanced Brick Pointer Signed: 07/26/2024 15:03 Receipt Acknowledged By: 07/26/2024 16:34 /brown/ OAPL REEVES MD PHYSICIAN 07/26/2024 ADDENDUM STATUS: COMPLETED vet on powerful nsaid/ indocin and tylenol. NO other meds will be prescribed. he can be referred to pain clinic if he chooses. /travon REEVES MD PHYSICIAN Signed: 07/26/2024 16:35 Receipt Acknowledged By: 07/28/2024 11:13 /travon YANCEY REGISTERED NURSE 07/28/2024 14:37 /brown/ Clarita Valencia RN Primary Care Staff Nurse NEEMA YANCEY [place] [facility] [place] [facility] Jul 26, 2024 04:35 PM ADDENDUM: LOCAL TITLE: Addendum STANDARD TITLE: ADDENDUM DATE OF NOTE: JUL 26, 2024@16:35:05 ENTRY DATE: JUL 26, 2024@16:35:06 AUTHOR: LAUREN REEVES COSIGNER: URGENCY: STATUS: COMPLETED vet on powerful nsaid/ indocin and tylenol. NO other meds will be prescribed. he can be referred to pain clinic if he chooses. /travon REEVES MD PHYSICIAN Signed: 07/26/2024 16:35 Receipt Acknowledged By: 07/28/2024 11:13 /travon YANCEY REGISTERED NURSE 07/28/2024 14:37 /travon Valencia RN Primary Care Staff Nurse ========= --- Original Document --- 07/26/24 WALK-IN NOTE PRIMARY CARE (T): <====Click to Start Advanced Medical Support [place] presents to the Primary Care clinic with the following request: [ ]Medication Renewal/Refill [ ]Consultation with Team RN [ ]Symptoms [ X ]Other-[place] req med stronger then Aspirin for pain. Will you need appt. seen 07/14 The [place] states they are: [ ]Waiting [ X [...] 10:30 CWM/NO/MHC/ETHAN 08/10/2024 10:00 CWM/NO/PODIATRY A 08/24/2024 10:00 NHM DENTAL DMD 2 08/24/2024 11:30 NHM/OPTOMETRY/FRANCIS/ 08/24/2024 14:00 CWM/NO/MED REHAB 1 PA 09/20/2024 15:00 CWM/NO/PACT 4 11/10/2024 10:00 CWM/NO/PACT 4 /es/ QUINN WONG Advanced [employer] Pointer Signed: 07/26/2024 15:03 Receipt Acknowledged By: 07/26/2024 16:34 /es/ OPAL REEVES MD PHYSICIAN 07/28/2024 ADDENDUM STATUS: COMPLETED RN updated updated about this and offered pain clinc is upset but agrees to pain clinc consult and terminates call /es/ NEEMA YANCEY REGISTERED NURSE Signed: 07/28/2024 11:12 Receipt Acknowledged By: * AWAITING SIGNATURE * OPAL REEVES MICHAE L G [facility] Jul 26, 2024 03:02 PM PRIMARY CARE NOTE: LOCAL TITLE: WALK-IN NOTE PRIMARY CARE (T) STANDARD TITLE: PRIMARY CARE NOTE DATE OF NOTE: JUL 26, 2024@15:02 ENTRY DATE: JUL 26, 2024@15:02:34 AUTHOR: QUINN WONG EXP COSIGNER: URGENCY: STATUS: COMPLETED WALK-IN NOTE PRIMARY CARE (T) Has ADDENDA <====Click to Start Advanced Medical Support presents to the Primary Care clinic with the following request: [ ]Medication Renewal/Refill [ ]Consultation with Team RN [ ]Symptoms [ X ]Other- req med stronger then Aspirin for pain. Will you need appt. [place] seen 07/14 The states they are: [ ]Waiting [ X ]Not Waiting No Walk in visit scheduled with PACT Nurse [ X ] At this encounter the 's demographics were verified. [ X ] At this encounter the [place]'s Insurance information was verified. [ X ] At this encounter the below scheduled visits for the [place] were discussed and appointment reminder card was offered. Future appointments: 07/28/2024 10:30 CWM/NO/MHC/ETHAN 08/10/2024 10:00 CWM/NO/PODIATRY A 08/24/2024 10:00 NHM DENTAL DMD 2 08/24/2024 11:30 NHM/OPTOMETRY/FRANCIS/ 08/24/2024 14:00 CWM/NO/MED REHAB 1 PA 09/20/2024 15:00 CWM/NO/PACT 4 11/10/2024 10:00 CWM/NO/PACT 4 /es/ QUINN WONG Advanced B[employer] Pointer Signed: 07/26/2024 15:03 Receipt Acknowledged By: 07/26/2024 16:34 /brown/ OPAL REEVES MD PHYSICIAN 07/26/2024 ADDENDUM STATUS: COMPLETED vet on powerful nsaid/ indocin and tylenol. NO other meds will be prescribed. he can be referred to pain clinic if he chooses. /brown/ OPAL REEVES MD PHYSICIAN Signed: 07/26/2024 16:35 Receipt Acknowledged By: 07/28/2024 11:13 /es/ NEEMA YANCEY REGISTERED NURSE * AWAITING SIGNATURE * MITESH VALENCIAITH 07/28/2024 ADDENDUM STATUS: COMPLETED RN updated updated about this and offered pain clinc is upset but agrees to pain clinc consult and terminates call /es/ NEEMA YANCEY REGISTERED NURSE Signed: 07/28/2024 11:12 Receipt Acknowledged By: * AWAITING SIGNATURE * OPAL REEVES ROBIN M [facility]
--- OUTSIDE RECORDS SUMMARY | 2024-08-31 21:53 | XMS_ITS | Encounter Summary ---
Author Name [facility] [place] Organization [facility] [place] Address [address] [place] [address] Care Team Providers Care Manager Storage Name Role Phone MARTIN BOWERS Primary Care Provider OPAL Mckay Primary Care Provider Unav ailable Selected Encounter This section includes the information on record at [place] for the Encounter. Date/Time Encounter Type Encounter Description Reason Provider Source Jul 14, 2024 10:30 AM OFFICE O/P EST MOD 30 MIN PRIMARY CARE/MEDICINE ICD-10-CM I10 Essential (primary) hypertension OPAL REEVES Azael Encounter Template Text not used by [place] Assessments - Encounter Diagnoses This section includes the primary and secondary diagnoses documented for the Encounter. Date/Time Primary/Secondary Diagnosis Diagnosis Name Provider Source Jul 14, 2024 11:17 AM PRIMARY Essential (primary) hypertension OPAL REEVES [facility] [place] [facility] Jul 14, 2024 11:17 AM SECONDARY Family history of malignant neoplasm of digestive organs OPAL REEVES [facility] [place] [facility] Jul 14, 2024 11:17 AM SECONDARY Hyperlipidemia, unspecified OPAL REEVES [place] [facility] [place] [facility] Jul 14, 2024 11:17 AM SECONDARY Pain in left knee OPAL REEVES [place] [facility] [place] [facility] Jul 14, 2024 11:17 AM SECONDARY Unilateral inguinal hernia, w/o obst or gangrene, recurrent OPAL REEVES [facility] [place] [facility] Plan of Treatment: Future Appointments (+ 6 months) and Future Tests (+/- 45 days) The Plan of Treatment section includes future care activities for the patient from all [place] [facility] This section includes future appointments and future orders which are active, pending or scheduled. Future Appointments This section includes appointments that were scheduled to occur 6 months from the date of the Encounter, up to a maximum of 20 appointments. The data comes from all [facility]. Appointment Date/Time Appointment Type Appointme nt Facility Name Jul 20, 2024 03:30 PM AMBULATORY - MEDICINE [place] [facility] [place] [facility] Jul 26, 2024 01:30 PM AMBULATORY - MEDICINE [place] [facility] [place] [facility] Jul 28, 2024 10:30 AM AMBULATORY - PSYCHIATRY [place] [facility] [place] [facility] Aug 10, 2024 10:00 AM AMBULATORY - MEDICINE [place] [facility] [place] [facility] Aug 10, 2024 03:00 PM AMBULATORY - MEDICINE [place] [facility] [place] [facility] Sep 20, 2024 03:00 PM AMBULATORY - MEDICINE [place] [facility] [place] [facility] Nov 10, 2024 10:00 AM AMBULATORY - MEDICINE [facility] [place] [facility] Active, Pending, and Scheduled Orders This section includes a listing of several types of active, pending, and scheduled orders, including clinic medications orders, diagnostic test orders, procedure orders and consult orders; where the start date of the order is 45 days before the date of the Encounter or 45 days after the date of theEncounter. The data comes from all [facility]. Test Date/Time Test Type Test Details Facility Name Jun 09, 2024 01:58 PM Consult Order COMMUNITY CARE-GEN SURGERY Cons Mining Analyst's Choice [facility] [place] [facility] Jun 09, 2024 03:46 PM Consult Order PSYCHOTHER APY BHIP/[facility] OUTPT Cons Mining Analyst[facility] [place] [facility] Jul 14, 2024 10:55 AM Consult Order REHAB MEDI CINE/NHM OUTPT Cons Mining Analyst's Choice [place] [facility] [place] [facility] Jul 19, 2024 11:25 AM Consult Order COMMUNITY CARE-DENTAL GENERAL Cons Mining Analyst's Choice [facility] [place] [facility] Jul 22, 2024 08:51 AM Consult Order COMMUNITY CARE-DENTAL GENERAL Cons Mining Analyst's Choice [facility] [place] [facility] Jul 22, 2024 01:51 PM Consult Order COMMUNITY CARE-DENTAL GENERAL Cons Mining Analyst's Choice [facility] [place] [facility] Lab Results: +/- 30 days of the encounter This section includes the Chemistry and Hematology Lab Results on record with [place] for the patient. Radiology Reports and Pathology Reports are provided separately, in subsequent sections. Lab Results This section contains the Chemistry/Hematology Results that were resulted 30 days before or 30 daysafter the date of the Encounter. Date/Time Source Result Type Result - Unit Interpretation Reference Range Comment Jul 06, 2024 02:09 PM [facility] LIPID PANEL FASTING Specimen Type: SERUM No comment entered. Ordering Provider: PERRY LONG MD Report Released Date/Time: Jun 17, 2024 02:14 PM Reporting Lab: [facility] [place] [address] [address] Performing Lab: [facility] [address] CHOLESTEROL 251 mg/dL H TRIGLYCERIDE 70 mg/dL 0-150 LDL calculated 171 mg/dL H 0-129 CHOL/HDL 3.8 HDL CHOLESTEROL 66 mg/dL H 40-60 Jul 06, 2024 02:09 PM [facility] CALCIUM Specimen Type: SERUM No comment entered. Ordering Provider: Brian REEVES Report Released Date/Time: Jul 01, 2024 03:56 PM Reporting Lab: [facility] [place] [facility] [address] [facility] [address] Performing Lab: [facility] [address] CALCIUM 9.8 mg/dL 8.5-10.2 Jul 06, 2024 02:09 PM [facility] HEMOGLOBIN A1C PANEL Specimen Type: BLOOD [...] Jul 01, 2024 03:56 PM Reporting Lab: [address] [address] Performing Lab: [address] [address] HEMOGLOBIN A1C 4.9 4.0-5.6 Jul 06, 2024 02:09 PM [facility] LIVER FUNCTION Specimen Type: SERUM No comment entered. Ordering Provider: Brian REEVES Report Released Date/Time: Jul 01, 2024 03:56 PM Reporting Lab: [address] [address] Performing Lab: [address] [address] PROTEIN,TOTAL 7.4 g/dL 6.0-8.3 ALBUMIN 4.4 g/dL 3.5-5.0 ALKALINE PHOSPHATASE 95 U/L 40-150 AST 21 U/L 5-34 ALT 34 U/L BILIRUBIN, TOTAL 0.4 mg/dL 0.2-1.2 Jul 06, 2024 02:09 PM [facility] BASIC METABOLIC PANEL (non-fasting) Specimen Type: SERUM No comment entered. Ordering Provider: Brian REEVES Report Released Date/Time: Jul 01, 2024 03:56 PM Reporting Lab: [address] [address] Performing Lab: [address] [address] UREA NITROGEN 19 mg/dL 7-25 GLUCOSE 90 mg/dL 65-100 SODIUM 139 mmol/L 135-145 POTASSIUM 4.8 mmol/L 3.5-5.0 CHLORIDE 104 mmol/L 100-110 CO2 26 meq/L 20-30 CREATININE, Serum 1.04 mg/dL 0.50-1.40 eGFR(CKD-EPI 2020) 87 mL/min >60 Jul 06, 2024 02:09 PM [facility] CBC AND DIFF (AUTO) Specimen Type: BLOOD No comment entered. Ordering Provider: Brian REEVES Report Released Date/Time: Jul 01, 2024 03:56 PM Reporting Lab: [address] [address] Performing Lab: [address] [address] WBC 8.69 10*3/uL 4.50-11.00 RBC 5.01 10*6/uL [...] 10:41 AM 98 90 145/84 19 97 [place] [facility] Social History: Smoking Status (Most current) [...] took place. Date/Time Current Smoking Status Comment [facility] Nov 19, 2023 10:00 AM VA-TOBACCO USER EVERY DAY [facility] Tobacco Use History This section includes a history of the smoking, or tobacco-related health factors, that were collected on or before the date of the Encounter. The data comes from the [place] facility where the Encounter took place. Date/Time Smoking Status/Tobac co Use Comment Facility Nov 19, 2023 10:00 AM VA-TOBACCO USE ADVICE [facility] Nov 19, 2023 10:00 AM VA-TOBACCO USE CHEFS NO [place] [facility] [place] [facility] Nov 19, 2023 10:00 AM VA-TOBACCO USE MED NO [place] [facility] [place] [facility] Nov 19, 2023 10:00 AM VA-TOBACCO USE WI 30 MIN OF WAKEUP [facility] Nov 19, 2023 10:00 AM VA-TOBACCO USER EVERY DAY [place] [facility] [place] [facility] February 10, 2023 01:00 PM ORYX ADMIT TOBACCO SCREEN YES [place] [facility] [place] [facility] February 10, 2023 01:00 PM ORYX ADMIT TOBACCO USE CIGS GR 5D [facility] February 10, 2023 01:00 PM ORYX DAILY TOBACCO CHEFS RECEIVED [facility] February 10, 2023 01:00 PM ORYX DAILY TOBACCO MEDS ORDERED [facility] Sep 02, 2022 08:00 AM VA-TOBACCO USE 30 YEARS OR MORE [facility] Sep 02, 2022 08:00 AM VA-TOBACCO USE ADVICE [facility] Sep 02, 2022 08:00 AM VA-TOBACCO USE CHEFS YES [facility] Sep 02, 2022 08:00 AM VA-TOBACCO USE MED NOTIFY PROVIDER [facility] Sep 02, 2022 08:00 AM VA-TOBACCO USE WI 30 MIN OF WAKEUP [facility] Sep 02, 2022 08:00 AM VA-TOBACCO USER EVERY DAY [facility] Oct 12, 2016 09:13 AM QUIT TOBACCO USE 1-7 YEARS AGO [facility] Sep 25, 2015 10:24 AM QUIT TOBACCO USE 1-7 YEARS AGO [facility] Oct 05, 2013 03:03 PM QUIT TOBACCO USE 1-7 YEARS AGO PT HAS QUIT LES THAN A YEAR AGO. [facility] Oct 05, 2013 03:03 PM QUIT TOBACCO USE IN PAST YEAR [facility] Advance Directives: All historical and current Section Date Range: From patient's date of to the date document was created. This section includes ALL of a patient's completed or amended [place] Advance and Rescinded Directives. The entries below indicate that a directive exists for the patient, but an actual copy is not included with this document. The data comes from all [place] facilities. Date Advance Directives Provider Source Mar 06, 2023 ADVANCE DIRECTIVE BEV PETTIT [facility] Mar 06, 2023 ADVANCE DIRECTIVE DISCUSSION BEV PETTIT [facility] Apr 20, 2020 ADVANCE DIRECTIVE DISCUSSION ERUM MARTÍNEZ [facility] Feb 24, 2020 ADVANCE DIRECTIVE DISCUSSION POOL FUENTES [facility] Oct 30, 2016 ADVANCE DIRECTIVE CRISTELKULDEEP Jojo [facility] Radiology Reports: +/- 30 days of [...] the Encounter. The data comes from all [place] treatment facilities. Date/Time Radiology Report Provider Source Jul 14, 2024 11:13 AM KNEE 3 VIEWS (LEFT ): JEYSON SANCHEZ [id number] -[id number] M Exm Date: JUL 14, 2024@11:13 Req Phys: OPAL REEVES Loc: CWM/NO/PACT 4 (Req'g Loc) Img Loc: [facility] 1 Service: [place] [address] (Case [id number] COMPLETE) KNEE 3 VIEWS (LEFT) (RAD Detailed) CPT:19237 Reason for Study: 5 yrs of left knee pain Clinical History: Report Status: Verified Date Reported: JUL 14, 2024 Date Verified: JUL 14, 2024 Official Greeter E-Sig:/ES/LIA JACINTO JR Report: Study: AP weight-bearing [...] Primary Interpreting Staff: LIA JACINTO JR, Radiologist (Official Greeter) /LIA CARPENTER JR [facility] [place] [facility] Encounter Notes: All associated encounter notes This section contains the clinical notes associated to the Encounter. Date/Time Encounter Note(s) Provider Source Jul 14, 2024 08:32 AM PHYSICIAN NOTE: LOCAL TITLE: MD NOTE STANDARD TITLE: PHYSICIAN NOTE DATE OF NOTE: JUL 14, 2024@08:32 ENTRY DATE: JUL 14, 2024@08:32:45 AUTHOR: LAUREN REEVES EXP COSIGNER: URGENCY: STATUS: COMPLETED HISTORY OF PRESENT ILLNESS: JEYSON SANCHEZ, is a 49 yo WHITE MALE [place] who presents at the [place] [facility] CC. multiple problems HPI. anisa presents today with anxiety that seems to be baseline for him as he is living w/ his parents and he admits to feeling somewhat overwhelmed with his medical problems, he is getting dental care for cavities and he needs surgery for left inguinal hernia. anisa has pain in left knee, s/p prior surgeries and knee brace helps to relieve pain. He has no fever nor angina and he admits that his HOME BP readings have been in 158/88 range and he started amlodipine 5 which he says helps lower BP. He also has high chol and FH of colon cancer but refuses to have C scope at this time. SH smokes 1 ppd Active problems - Computerized Problem List is the source for the followin. Acute back pain - lumbar 2. Tinea unguium 3. Exposure to potentially hazardous substance 4. Homeless 5. Inguinal hernia 6. Cannabis dependence 7. Schizoaffective disorder, bipolar type 8. Alcohol dependence 9. Hypertension 10. Gastroesophageal reflux disease 11. Nicotine dependence 12. Bipolar disorder 13. Positive PPD 14. Left knee pain (SNOMED CT [id number]) 15. Asthma (SNOMED CT [id number]) HISTORY: PERIOD OF SERVICE - [facility] FROM January TO Apr COMBAT SERVICE INDICATED: No SERVICE CONNECTED % - 100 VITAL SIGNS: Temperature 97.9 F [36.6 C] (07/10/2023 09:58) Blood Pressure 150/100 (06/09/2024 13:43) Pulse 82 (06/09/2024 13:32) Respiration 20 (06/09/2024 [...] change in stool EXAMINATION General: this is 49 yo male in no obvious distress. Mental Status: Alert and oriented x 3 Head: Normocephalic. Lungs: CTA. no crackles, no wheezing CV: RRR. No murmur GI: Abdomen is soft and nontender. Ext: No effusion left knee Neuro: Normal speech & gait Integument: Skin is warm and dry. Psych: vet has anxious mood and affect. DATA REVIEW >> MEDICATIONS Reviewed Today (VA & Non VA) ALLERGIES: CATS Active Outpatient Medications (including Supplies): Issue Date Status Last Fill Active Outpatient Medications Refills Expiration 1) ACETAMINOPHEN 500MG TAB Qty: 100 for 90 ACTIVE (S) Issu:06-09-24 days Sig: TAKE TWO TABLETS BY MOUTH Refills: 0 Last:08-28-24 TWICE DAILY NEEDED Expr:06-10-25 2) ALBUTEROL 90MCG (CFC-F) 200D ORAL INHL ACTIVE (S) Issu:06-09-24 Qty: 3 for 90 days Sig: INHALE 2 Refills: 1 Last:08-28-24 PUFFS BY MOUTH FOUR TIMES DAILY Expr:06-10-25 NEEDED 3) AMLODIPINE BESYLATE 5MG TAB Qty: 90 for ACTIVE (S) Issu:06-09-24 90 days Sig: TAKE ONE TABLET BY MOUTH Refills: 1 Last:08-28-24 ONCE DAILY FOR BLOOD PRESSURE/HEART, Expr:06-10-25 DO NOT TAKE WITH GRAPEFRUIT JUICE 4) INDOMETHACIN 50MG CAP Qty: 60 for 30 ACTIVE Issu:07-01-24 days Sig: TAKE ONE CAPSULE BY MOUTH Refills: 2 Last:07-12-24 TWICE DAILY NEEDED FOR GOUT Expr:07-02-25 5) MULTIVITAMIN/MINERALS CAP/TAB Qty: 100 ACTIVE (S) Issu:06-09-24 for 90 days Sig: TAKE ONE CAP/TAB BY Refills: 1 Last:08-28-24 MOUTH ONCE DAILY Expr:06-10-25 6) QUETIAPINE FUMARATE 100MG TAB Qty: 90 ACTIVE Issu:06-17-24 for 30 days Sig: TAKE ONE TABLET BY Refills: 1 Last:07-12-24 MOUTH AT BEDTIME AND TAKE ONE TABLET Expr:06-18-25 AT BEDTIME NEEDED AND TAKE ONE TABLET AT BEDTIME NEEDED SCHIZOAFFECTIVE BIPOLAR/ SLEEP 7) TRAZODONE HCL 100MG TAB Qty: 45 for 30 ACTIVE Issu:06-17-24 days Sig: TAKE ONE TABLET BY MOUTH AT Refills: 1 Last:07-12-24 BEDTIME AND TAKE ONE-HALF TABLET AT Expr:06-18-25 BEDTIME NEEDED SLEEP >> LABS REVIEWED TODAY: CHEM 7 TREND LAB CUMULATIVE SELECTED Collection DT Spec GLUCOSE BUN CREATIN Sodium K+/Pot CL CO2 07/06/2024 14:09 SERUM 90 19 1.04 139 4.8 104 26 03/19/2023 10:09 SERUM 125 H 22 0.88 138 4.9 106 21 02/10/2023 13:49 SERUM 89 14 0.76 141 4.2 106 25 01/24/2023 16:11 SERUM 84 14 0.77 141 5.1 H 103 28 09/24/2022 13:46 SERUM 84 14 0.82 140 3.8 104 27 LAB CUMULATIVE SELECTED 2 No selection items chosen for this component. CHEM 7 Results Collection DT Spec Sodium K+/Pot CL CO2 GLUCOSE BUN 07/06/2024 14:09 SERUM 139 4.8 104 26 90 19 03/19/2023 10:09 SERUM 138 4.9 106 21 125 H 22 02/10/2023 13:49 SERUM 141 4.2 106 25 89 14 01/24/2023 16:11 SERUM 141 5.1 H 103 28 84 14 09/24/2022 13:46 SERUM 140 3.8 104 27 84 14 10/14/2016 10:25 SERUM 137 4.8 99 L 29 81 14 CBC TREND Collection DT Spec WBC RBC HGB HCT MCV MCH PLT 07/06/2024 14:09 BLOOD 8.69 5.01 16.3 47.3 94.4 32.5 282 03/19/2023 10:09 BLOOD 8.12 4.64 15.3 45.7 98.5 33.0 H 207 02/10/2023 13:49 BLOOD 7.04 4.26 14.5 42.9 100.7 H 34.0 H 275 01/24/2023 16:11 BLOOD 6.54 4.47 14.9 44.0 98.4 33.3 H 258 09/24/2022 13:46 BLOOD 6.82 4.47 15.1 44.4 99.3 H 33.8 H 262 HEMOGLOBIN A1C TREND Collection DT Spec HGBA1c 07/06/2024 14:09 BLOOD 4.9 02/12/2023 07:00 BLOOD 4.7 LIPID PANEL TREND Collection DT Spec CHOL HDL CHO/HDL LDL-c TRIG 07/06/2024 14:09 SERUM 251 H 66 H 3.8 171 H 70 02/12/2023 07:00 SERUM 240 H 104 H 2.3 120 80 09/24/2022 13:46 SERUM 202 H 65 H 3.1 127 51 10/14/2016 10:25 SERUM 199 85 H 2.3 103 55 UREA NITROGEN 07/06/24 14:09 19 CREATININE-EGFR 07/06/24 14:09 1.04 LIVER PANEL TREND Collection DT Spec AST ALT T BILI ALK YOUNG T. PROT ALBUMIN 07/06/2024 14:09 SERUM 21 34 0.4 95 7.4 4.4 03/31/2023 07:00 SERUM 11 19 0.4 72 6.7 4.1 03/19/2023 10:09 SERUM 12 16 0.5 63 6.3 3.8 03/18/2023 07:00 SERUM 10 16 0.3 64 6.6 4.0 03/05/2023 07:00 SERUM 14 16 0.3 70 6.5 3.9 PSA TREND Collection DT Spec PSA SR- 09/24/2022 13:46 SERUM 1.13 Collection DT Spec TSH 02/12/2023 07:00 SERUM 1.49 ANEMIA PANEL TREND Collection DT Spec B12 SR- Folate HCT 07/06/2024 14:09 BLOOD 47.3 03/19/2023 10:09 BLOOD 45.7 03/18/2023 07:00 SERUM 605 02/12/2023 07:00 SERUM 11.14 02/12/2023 07:00 SERUM 176 L PT INR TREND No data available >> HEALTH MAINTENANCE PREVENTIVE MEDICINE GOALS Info Only: VA Video Connect Capable DUE NOW MH AIMS Testing DUE NOW Advance Directive Screen AD Mar 06 BMI>30/>24.99 High Risk DUE NOW Avg Risk Colorectal Cancer Screen Jun 19 Hepatitis B Immunization DUE NOW Mental Health Treatment Plan DUE NOW Pneumococcal Conjugate Vaccine (PCV15/PCDUE NOW Medication Reconciliation DUE NOW Td / Tdap Immunization Oct 05 COVID-19 Immunization DUE NOW HTN Assess for Elevated BP>=140/90 DUE NOW Herpes Zoster (Shingles) Vaccine DUE NOW RHS Screen DUE NOW (Optional) Whole Health Documentation DUE NOW ASSESSMENT/PLAN: 1. HTN 2. left knee pain 3. left inguinal hernia 4. elev chol 5. FH of colon cancer Plan 1. continue amlodipine 5 and self monitor BP 2. check knee films today. refer to med rehab for injxn 3. vet will have left hernia repaired and if needed this note will suffice for preop clearance as vet is at NO INCREASED RISK HAVING LEFT INGUINAL HERNAI REPAIR 4. vet declines statin, he will reduce lipids in diet 5. refuses colonscopy at this time/ f/u w/ PCP in 2 mos to readdress this issue LAB ORDERS FOR NEXT APPT. spent in patient care and education No barriers; Patient understands and agrees to current treatment plan. If pt has any questions, concerns, or changes in current health status he/she will call or come in to the VA. Medication Reconciliation: Outpatient: Has the patient been taking medications as documented in the EMLR? YES: The patient has been taking medications as documented in the EMLR. Essential Medication List for Review used to complete this medication reconciliation. INCLUDED IN THIS LIST: Alphabetical list of active outpatient prescriptions dispensed from this VA (local) and dispensed from another VA or DoD facility (remote) as well as inpatient orders (local, pending and active), local clinic medications, locally documented non-VA medications, and local prescriptions that have or been discontinued in the past 90 days. - All changes in medications, including all non-VA/Herbal/OTC medications were entered into CPRS. - If there were any medications the patient should no longer take, they were discontinued. - The patient/caregiver was instructed to update this list, discard old lists, and take this list to the next appointment, whether with a [place] or non-[place] provider. Avg Risk Colorectal Cancer Screen: AVERAGE RISK colorectal cancer screening is due based on information available to this clinical reminder Patient declined screening/surveillance. /brown/ OPAL REEVES MD PHYSICIAN Signed: 07/14/2024 11:17 AMELIA REEVES [place] [facility]
== END 2024-08-25 17:52 | disposition home or self-care (01) ==
PROVIDERS: Emergency Provider Emergency Medicine Emergency Medical Services
DX: F10.120 Alcohol abuse with intoxication, uncomplicated (principal); Y90.9 Presence of alcohol in blood, level not specified
CPT/HCPCS: 99282

== ENCOUNTER 2024-09-03 11:29 | Emergency (ER) | payer OTHER, SELFPAY ==
--- OUTSIDE RECORDS SUMMARY | 2024-09-03 11:32 | XMS_ITS | Encounter Summary ---
Author Name [facility] Organization [facility] Address [address] [place] [address] Care Team Providers Care Assembler Finger Buffs Name Role Phone MARTIN BOWERS Primary Care Provider OPAL Mckay Primary Care Provider Unav ailable Selected Encounter This section includes the information on record at [place] for the Encounter. Date/Time Encounter Type Encounter Description Reason Provider Source Sep 11, 2023 11:15 AM PSYTX W PT [facility] - IND ICD-10-CM F25.0 Schizoaffective disorder, bipolar type LALO GARCIA [facility] Encounter Template Text not used by [place] Assessments - Encounter Diagnoses This section includes the primary and secondary diagnoses documented for the Encounter. Date/Time Primary/Secondary Diagnosis Diagnosis Name Provider Source Sep 11, 2023 12:41 PM PRIMARY Schizoaffective disorder, bipolar type LALO GARCIA [facility] Sep 11, 2023 12:41 PM SECONDARY Alcohol dependence with alcohol-induced mood disorder LALO GARCIA [facility] Plan of Treatment: Future Appointments (+ [...] 26, 2023 02:30 PM [facility] Nov 19, 2023 09:30 AM [facility] Nov 19, 2023 10:00 AM [facility] Nov 19, 2023 02:00 PM [facility] Dec 03, 2023 10:30 AM AMBULATORY - PSYCHIATRY [facility] Social History: Smoking Status (Most current) [...] 01:00 PM ORYX ADMIT TOBACCO SCREEN YES [facility] Tobacco Use History This section includes a history of the smoking, or tobacco-related health factors, that were collected on or before the date of the Encounter. The data comes from the [place] facility where the Encounter took place. Date/Time Smoking Status/Tobac co Use Comment Facility February 10, 2023 01:00 PM ORYX ADMIT TOBACCO USE CIGS GR 5D [facility] February 10, 2023 01:00 PM ORYX DAILY TOBACCO SALES AND DISTRIBUTION CLERK RECEIVED [facility] February 10, 2023 01:00 PM ORYX DAILY TOBACCO MEDS ORDERED [facility] Sep 02, 2022 08:00 AM VA-TOBACCO USE 30 YEARS OR MORE [facility] Sep 02, 2022 08:00 AM VA-TOBACCO USE ADVICE [facility] Sep 02, 2022 08:00 AM VA-TOBACCO USE SALES AND DISTRIBUTION CLERK YES [facility] Sep 02, 2022 08:00 AM VA-TOBACCO USE MED NOTIFY PROVIDER [facility] Sep 02, 2022 08:00 AM VA-TOBACCO USE WI 30 MIN OF WAKEUP [facility] Sep 02, 2022 08:00 AM VA-TOBACCO USER EVERY DAY [facility] Oct 12, 2016 09:13 AM QUIT TOBACCO USE 1-7 YEARS AGO [facility] Sep 25, 2015 10:24 AM QUIT TOBACCO USE 1-7 YEARS AGO [facility] Oct 05, 2013 03:03 PM QUIT TOBACCO USE 1-7 YEARS AGO PT HAS QUIT LES THAN A YEAR AGO. [facility] Oct 05, 2013 03:03 PM QUIT TOBACCO USE IN PAST YEAR [facility] Advance Directives: All historical and current [...] Mar 06, 2023 ADVANCE DIRECTIVE BEV PETTIT [facility] Mar 06, 2023 ADVANCE DIRECTIVE DISCUSSION BEV PETTIT [facility] Apr 20, 2020 ADVANCE DIRECTIVE DISCUSSION ERUM MARTÍNEZ [facility] Feb 24, 2020 ADVANCE DIRECTIVE DISCUSSION POOL FUENTES [facility] Oct 30, 2016 ADVANCE DIRECTIVE KULDEEP FAM [facility] Encounter Notes: All associated encounter notes [...] Letter mailedDisposition onSep 3rd attempt: 4th attempt: /brown/ SHELLI DAVE MATERIAL CUTTER Signed: 09/12/2023 12:53 10/09/2023 ADDENDUM STATUS: COMPLETED RTC orders: Unable to contact patient: Attempts to contact: 1st attempt: Left voicemail 2nd attempt: Letter mailedDisposition onSep 3rd attempt: left vm 4th attempt: /brown/ SHELLI DAVE MATERIAL CUTTER Signed: 10/09/2023 10:12 SHELLI DAVE [facility] Sep 11, 2023 12:28 PM PSYCHOLOGY NOTE: LOCAL TITLE: PSYCHOLOGY NOTE STANDARD TITLE: PSYCHOLOGY NOTE DATE OF NOTE: SEP 11, 2023@12:28 ENTRY DATE: SEP 11, 2023@12:28:40 AUTHOR: LALO GARCIA EXP COSIGNER: URGENCY: STATUS: COMPLETED PSYCHOLOGY NOTE Has ADDENDA Date of session: Aug Duration of session: 20 Diagnosis: AUD, reportedly in remission, S/P TBI, Schizo-affective DO. Presenting Problem ( report): [facility] visit to straighten out services: when he [...] Note 's no show appt. Please keep fiction and nonfiction writer prose apprised of 's attempt to resume MH tx as his trust and estates attorney initiated contact to facilitate diversion disposition via [facility] services. Feel free to refer [place] to fiction and nonfiction writer prose for tx status letter for court. /brown/ MOIRA RODRIGUEZ LCSW LICENSED CLINICAL EMERGENCY SERVICE WORKER Signed: 09/29/2023 11:57 [facility]ALO GARCIA [facility]
--- OUTSIDE RECORDS SUMMARY | 2024-09-03 11:32 | XMS_ITS | Continuity of Care Document ---
Author Name [facility] Organization [facility] Care Team Providers Care Tax Intern Name Role Phone [facility] Unavailable Unavailable Problems Combined list of problems from Department of Defense and Veterans Affairs facilities. It does not include entries that were removed or entered in error. Problem Status Onset Date Problem Type Date of Resolution Comments Source Asthma (SNOMED CT 236797009) Active 014 Condition [facility] [place] Left knee pain (SNOMED CT 488627627425312) Active 014 Condition Jul 14, 2024 Entered [...] red indications on his peak flow met [facility] Blood Pressure Isolated Elevated Inactive Condition [facility] visit for: screening exam Inactive Condition [facility] Acute back pain - lumbar Active Condition [facility] [place] [facility] Alcohol abuse Active Condition Nov Entered By: KOLBY SCHWARZ Comment: Rehab x 2 [facility] Alcohol dependence Active Condition [facility] Asthma Active Condition [facility] Bipolar disorder Active Condition [facility] Bipolar II disorder Active Condition [facility] Bipolar II disorder, most recent episode hypomanic Active Condition [facility] Cannabis dependence Active Condition [facility] [place] [facility] Exposure to potentially hazardous substance Active Condition Nov 12, 2023 Entered By: TESS SMALLWOOD Comment: Original PORTIA Screen completed on 09/02/22 [facility] [place] [facility] Exposure to Potentially Hazardous Substance ([facility] [id number]) Active Condition [facility] Family history of malignant neoplasm of colon over age 50 Active Condition Jul 14, 2024 Entered By: DARLENE REEVES Comment: FH of colon cancer in Father, father alive age 77 in 2023 [facility] [place] [facility] Gastroesophageal reflux disease Active Condition [facility] [place] [facility] HLD - Hyperlipidemia Active Condition [facility] Homeless Active Condition [facility] [place] [facility] HTN-Hypertension (SCT 33289142) Active Condition [facility] Hyperlipidemia (SCT 67528391) Active Condition [facility] [place] [facility] Hypertension Active Condition Jul 14, 2024 Entered By: DARLENE REEVES Comment: vet resumed using amlodipine 5/ BP at home improving [facility] [place] [facility] Inguinal hernia Active Condition Jun 09, 2024 Entered By: DARLENE REEVES Comment: vet had CT confirming left inguinal hernia February 2023 [facility] Lack of Housing (ICD-9-CM V60.0) Active Condition [facility]) Nicotine dependence Active Condition [facility] Pain in left knee (SNOMED CT 440868017191854) Active Condition Nov 27 8 Entered By: KOLBY SCHWARZ Comment: Arthroscopic surgeries x 2 [facility] Positive PPD Active Condition Sep 02, 2022 Entered By: FABRICIO PRINCE Comment: Status post 1 year of treatment with tb meds [facility] Schizoaffective disorder, bipolar type Active Condition [facility] Severe alcohol dependence Active Condition [facility] Tinea unguium Active Condition VA [...] lenses Active Diagnosis [facility] [place] [facility] Diagnosis: ICD-10-CM H25.013 Cortical age-related cataract, bilateral Active Diagnosis [facility] Diagnosis: ICD-10-CM J45.998 Other asthma Active Diagnosis [facility] Diagnosis: ICD-10-CM Z59.01 Sheltered homelessness Active Diagnosis [facility] C[facility] Diagnosis: ICD-10-CM F12.20 Cannabis dependence, uncomplicated Active Diagnosis [facility] Diagnosis: ICD-10-CM F31.9 Bipolar disorder, unspecified Active [facility] Diagnosis: ICD-10-CM Z13.6 Encounter for screening for cardiovascular disorders Active Diagnosis [facility] Diagnosis: ICD-10-CM K40.91 Unilateral inguinal hernia, w/o obst or gangrene, recurrent Active Diagnosis [facility] Diagnosis: ICD-10-CM K45.8 Oth abdominal hernia without obstruction or gangrene Active Diagnosis [facility] Diagnosis: ICD-10-CM K08.9 Disorder of teeth and supporting structures, unspecified Active Diagnosis [facility] Medications Combined list of outpatient medications from Department of Defense and [facility] Affairs facilities.Medications provided include 1) outpatient medications from the last 15 months, and 2) patient-reported medications. Medication Details Route Status Patient Instructions Prescription Expires Prescription Number Last Dispense Date Ordering Provider Order Date Order Qty Source ACETAMINOPH EN 500MG TAB TAKE TWO TABLETS BY MOUTH TWICE DAILY NEEDED ORAL ACTIVE 06/10/2025 [id number] AMELIA HARTLEY 2023 100 [facility] ACETAMINOPH EN 500MG TAB TAKE TWO TABLETS BY MOUTH TWICE DAILY NEEDED ORAL DISCONT INUED 04/01/2024 [id number] 4 DESIRAE PEREZ 2022 60 [facility] ALBUTEROL 90MCG/ACTUA T (CFC-F) INHL,ORAL,8 .5GM DOSE COUNTER INHALE 2 PUFFS BY MOUTH FOUR TIMES DAILY NEEDED RESPIR ATORY (INHAL ATION) ACTIVE 06/10/2025 [id number] 4 AMELIA HARTLEY 2023 3 [facility] ALBUTEROL 90MCG/ACTUA T (CFC-F) INHL,ORAL,8 .5GM DOSE COUNTER INHALE 2 PUFFS BY MOUTH FOUR TIMES DAILY NEEDED FOR BRONCHOS PASM RESPIR ATORY (INHAL ATION) DISCONT INUED (EDIT) 06/19/2024 [id number] 3 RA SARAY LOWRY 2022 3 [facility] [place] AMLODIPINE BESYLATE 5MG TAB TAKE ONE TABLET BY MOUTH ONCE DAILY FOR BLOOD PRESSURE /HEART, DO NOT TAKE WITH GRAPEFRU IT JUICE ORAL ACTIVE 06/10/2025 [id number] 4 AMELIA HARTLEY 2023 90 [facility] [place] INDOMETHACI N 50MG CAP TAKE ONE CAPSULE BY MOUTH TWICE DAILY NEEDED FOR GOUT ORAL ACTIVE 07/02/2025 [id number] 4 AMELIA HARTLEY 2023 60 [facility] [place] LIDOCAINE 5% PATCH APPLY 1 PATCH TOPICALL Y ONCE DAILY FOR NERVE PAIN (LEAVE PATCH ON FOR 12 HOURS, THEN REMOVE PATCH) TOPICA L SUSPEND ED 07/29/2025 [id number] 4 AMELIA HARTLEY 2023 30 [facility] [place] METHOCARBAM OL 750MG TAB TAKE ONE TABLET BY MOUTH THREE TIMES DAILY NEEDED ORAL 04/01/2024 [id number] 4 DESIRAE PEREZ 2022 45 [facility] MULTIVITAMI NS W/MINERALS CAP/TAB TAKE ONE CAP/TAB BY MOUTH ONCE DAILY ORAL ACTIVE 06/10/2025 [id number] 4 AMELIA HARTLEY 2023 100 [facility] OLANZAPINE 5MG TAB TAKE ONE TABLET BY MOUTH AT BEDTIME ORAL DISCONT INUED BY PRINCE R 11/19/2024 [id number] 4 JAMES LONG MD 2023 30 [facility] OLANZAPINE 5MG TAB TAKE ONE TABLET BY MOUTH AT BEDTIME ORAL DISCONT INUED (EDIT) 08/08/2024 [id number] 4 JAMES LONG MD 2022 30 [facility] OLANZAPINE 5MG TAB TAKE ONE TABLET BY MOUTH AT BEDTIME ORAL DISCONT INUED (EDIT) 07/17/2024 [id number] JAMES LOGN MD 2022 30 [facility] OMEPRAZOLE 20MG CAP,EC TAKE 1 CAPSULE BY MOUTH EVERY MORNING 30 MINUTES BEFORE BREAKFAS T ORAL ACTIVE AMELIA HARTLEY 2023 [facility] QUETIAPINE FUMARATE 100MG TAB TAKE ONE TABLET BY MOUTH AT BEDTIME AND TAKE ONE TABLET AT BEDTIME NEEDED AND TAKE ONE TABLET AT BEDTIME NEEDED SCHIZOAF FECTIVE BIPOLAR/ SLEEP ORAL ACTIVE 07/29/2025 [id number] 4 JAMES LONG MD 2023 90 [facility] QUETIAPINE FUMARATE 100MG TAB TAKE ONE TABLET BY MOUTH AT BEDTIME AND TAKE ONE TABLET AT BEDTIME NEEDED AND TAKE ONE TABLET AT BEDTIME NEEDED SCHIZOAF FECTIVE BIPOLAR/ SLEEP ORAL DISCONT INUED (EDIT) 06/18/2025 [id number] 4 JAMES LONG MD 2023 90 [facility] TRAZODONE HCL 100MG TAB TAKE ONE TABLET BY MOUTH AT BEDTIME AND TAKE ONE-HALF TABLET AT BEDTIME NEEDED SLEEP ORAL ACTIVE 07/29/2025 [id number] 4 JAMES LONG MD 2023 45 [facility] [facility] TRAZODONE HCL 100MG TAB TAKE ONE TABLET BY MOUTH AT BEDTIME AND TAKE ONE-HALF TABLET AT BEDTIME NEEDED SLEEP ORAL DISCONT INUED (EDIT) 06/18/2025 [id number] 4 JAMES LONG MD 2023 45 [facility] [place] [facility] Allergies, Adverse Reactions, Alerts Combined list of allergies from Department of Defense and Veterans Affairs facilities. It does not include entries that were removed or entered in error. Substance Category Reaction Severity Reaction type Status Date Reported Comments Source CATS Propensity to adverse reaction (finding) active 3 [facility] CATS Propensity to adverse reaction (finding) Urticaria active 0 [facility] No Known Allergies Drug allergy (disorder) active 7 [place] [facility] [place] TUBERCULIN, PURIFIED PROTEIN DERIVATIVE Propensity to adverse reactions to drug (finding) Eruption active 0 [facility] Immunizations Combined list of available immunizations from the Department of Defense and Veterans Affairs facilities. Immunization Series Date Given Administered By Site Reaction Lot Number CVX Code Drug Manager Market Research Status Comments Source INFLUENZA, SPLIT VIRUS, TRIVALENT, PF 2023 RACHEL VALENCIA LEFT DELTO ID [id number] complet ed [facility] [place] COVID-19 (MODERNA), MRNA, LNP-S, PF, 100 MCG/0.5ML DOSE OR 50 MCG/0.25ML DOSE 1 2021 NEMO ANDREW LEFT DELTO ID [id number] complet ed [facility] [place] [facility] TDAP 2017 115 complet ed [facility] FLU,3 YRS (HISTORICAL) 2015 88 complet ed Site: Left Deltoid [facility] [place] [facility] PNEUMOCOCCAL POLYSACCHARID E PPV23 2015 33 complet ed [facility] [place] [facility] DTAP, UNSPECIFIED FORMULATION 2013 107 complet ed Site: Right Deltoid [facility] [place] [facility] FLU,3 YRS (HISTORICAL) 2013 88 complet ed Site: Right Deltoid [facility] [place] [facility] tetanus and diphtheria toxoids, adsorbed, [...] antigen)-reti red CODE 0 2005 Unknown, Provider [id number] Modebo ([facility]) complet ed influenza virus vaccine, split virus [...] 2005 MILAGRO SINGLETON [id number] Sanofi Pasteur ([facility]) complet ed typhoid Vi capsular polysacch aride [...] antigen)-reti red CODE 1 1999 Unknown, Provider [id number] Maida (ROSA) complet ed influenza virus [...] PM Reporting Lab: [facility] [place] [facility] [address] [facility] [address] Performing Lab: [facility] [place] [facility] [address] [facility] [address] [facility] [place] [facility] LIPID PANEL FASTING TRIGLYCERI DE [MASS/VOLU ME] IN SERUM OR PLASMA 70 mg/dL 0 - 150 07/06 Specimen Type: SERUM No comment entered. Ordering Provider: SINA LONG MD Report Released Date/Time: Jun 17, 2024 02:14 PM Reporting Lab: [facility] [place] [address] [address] Performing Lab: [facility] [place] [address] [address] [facility] [place] [facility] LIPID PANEL FASTING CHOLESTERO L IN LDL [MASS/VOLU ME] IN SERUM OR PLASMA BY CALCELOYO N 171 mg/dL 0 - 129 07/06 H Specimen Type: SERUM No comment entered. Ordering Provider: SINA LONG MD Report Released Date/Time: Jun 17, 2024 02:14 PM Reporting Lab: [facility] [place] [address] [address] Performing Lab: [facility] [place] [address] [address] [facility] [place] [facility] LIPID PANEL FASTING CHOLESTERO L.TOTAL/CH OLESTEROL IN HDL [MASS RATIO] IN SERUM OR PLASMA 3.8 07/06 Specimen Type: SERUM No comment entered. Ordering Provider: SINA LONG MD Report Released Date/Time: Jun 17, 2024 02:14 PM Reporting Lab: [facility] [place] [address] [address] Performing Lab: [facility] [place] [facility] [address] [facility] [address] [facility] [place] [facility] LIPID PANEL FASTING CHOLESTERO L IN HDL [MASS/VOLU ME] IN SERUM OR PLASMA 66 mg/dL 40 - 60 07/06 H Specimen Type: SERUM No comment entered. Ordering Provider: SINA LONG MD Report Released Date/Time: Jun 17, 2024 02:14 PM Reporting Lab: [facility] [place] [facility] [address] [facility] [address] Performing Lab: [facility] [place] [facility] [address] [facility] [address] [facility] [place] [facility] HEMOGLOB IN A1C PANEL HEMOGLOBIN A1C/HEMOGL OBIN.TOTAL [...] Jul 01, 2024 03:56 PM Reporting Lab: [facility] [place] [facility] [address] [facility] [address] Performing Lab: [facility] [place] [facility] [address] [facility] [address] [facility]N [place] [facility] CALCIUM CALCIUM [MASS/VOLU ME] IN SERUM OR PLASMA 9.8 mg/dL 8.5 - 10.2 07/06 Specimen Type: SERUM No comment entered. Ordering Provider: OPAL RAZO Report Released Date/Time: Jul 01, 2024 03:56 PM Reporting Lab: [facility] [place] [facility] [address] [facility] [address] Performing Lab: [facility] [address] [facility] [address] [facility] [place] [facility] LIVER FUNCTION PROTEIN [MASS/VOLU ME] IN SERUM OR PLASMA 7.4 g/dL 6.0 - 8.3 07/06 Specimen Type: SERUM No comment entered. Ordering Provider: OPAL RAZO Report Released Date/Time: Jul 01, 2024 03:56 PM Reporting Lab: [facility] [place] [facility] [address] [facility] [address] Performing Lab: [facility] [place] [facility] [address] [facility] [address] [facility] [place] [facility] LIVER FUNCTION ALBUMIN [MASS/VOLU ME] IN SERUM OR PLASMA 4.4 g/dL 3.5 - 5.0 07/06 Specimen Type: SERUM No comment entered. Ordering Provider: OPAL RAZO Report Released Date/Time: Jul 01, 2024 03:56 PM Reporting Lab: [facility] [place] [facility] [address] [facility] [address] Performing Lab: [facility] [place] [address] [address] [facility] [place] [facility] LIVER FUNCTION ALKALINE PHOSPHATAS E [ENZYMATIC ACTIVITY/V OLUME] IN SERUM OR PLASMA 95 U/L 40 - 150 07/06 Specimen Type: SERUM No comment entered. Ordering Provider: OPAL RAZO Report Released Date/Time: Jul 01, 2024 03:56 PM Reporting Lab: [facility] [place] [facility] [address] [facility] [address] Performing Lab: [facility] [place] [facility] [address] [facility] [address] [facility] [place] [facility] LIVER FUNCTION ASPARTATE AMINOTRANS FERASE [ENZYMATIC ACTIVITY/V OLUME] IN SERUM OR PLASMA 21 U/L 5 - 34 07/06 Specimen Type: SERUM No comment entered. Ordering Provider: OPAL RAZO Report Released Date/Time: Jul 01, 2024 03:56 PM Reporting Lab: [facility] [place] [facility] [address] [facility] [address] Performing Lab: [facility] [place] [facility] [address] [facility] [address] [facility]N [facility] LIVER FUNCTION ALANINE AMINOTRANS FERASE [ENZYMATIC ACTIVITY/V OLUME] IN SERUM OR PLASMA 34 U/L 07/06 Specimen Type: SERUM No comment entered. Ordering Provider: OPAL RAZO Report Released Date/Time: Jul 01, 2024 03:56 PM Reporting Lab: [facility] W[facility] [address] [facility] [address] Performing Lab: [facility] TRN [facility]USE[facility] [address] [facility] [address] [facility]ERRJ[facility]N [facility] LIVER FUNCTION BILIRUBIN. TOTAL [MASS/VOLU ME] IN SERUM OR PLASMA 0.4 mg/dL 0.2 - 1.2 07/06 Specimen Type: SERUM No comment entered. Ordering Provider: OPAL RAZO Report Released Date/Time: Jul 01, 2024 03:56 PM Reporting Lab: [facility] TRN [facility] [address] [facility] [address] Performing Lab: [facility]RL TRN [facility] [address] [facility] [address] [facility] [place] BASIC METABOLI C PANEL (non-fas ting) UREA NITROGEN [MASS/VOLU ME] IN SERUM OR PLASMA 19 mg/dL 7 - 25 07/06 Specimen Type: SERUM No comment entered. Ordering Provider: OPAL RAZO Report Released Date/Time: Jul 01, 2024 03:56 PM Reporting Lab: [facility] TRN [facility]ITAL[facility] [address] [facility] [address] Performing Lab: [facility] WSTRN [facility] [address] [facility] [address] [facility]ERRJ[facility] A[facility] ANDRE[facility]IAL HOSPITALN [facility] [place] BASIC METABOLI C PANEL (non-fas ting) GLUCOSE [MASS/VOLU ME] IN SERUM OR PLASMA 90 mg/dL 65 - 100 07/06 Specimen Type: SERUM No comment entered. Ordering Provider: OPAL RAZO Report Released Date/Time: Jul 01, 2024 03:56 PM Reporting Lab: [facility] [place] [address] [address] Performing Lab: [facility] [address] [address] [facility] [place] [facility] BASIC METABOLI C PANEL (non-fas ting) SODIUM [MOLES/VOL UME] IN SERUM OR PLASMA 139 mmol/L 135 - 145 07/06 Specimen Type: SERUM No comment entered. Ordering Provider: OPAL RAZO Report Released Date/Time: Jul 01, 2024 03:56 PM Reporting Lab: [facility] [place] [address] [address] Performing Lab: [facility] [address] [address] [facility]RL WSTRN [place] [facility] BASIC METABOLI C PANEL (non-fas ting) POTASSIUM [MOLES/VOL UME] IN SERUM OR PLASMA 4.8 mmol/L 3.5 - 5.0 07/06 Specimen Type: SERUM No comment entered. Ordering Provider: OPAL RAZO Report Released Date/Time: Jul 01, 2024 03:56 PM Reporting Lab: [facility] [place] [address] [address] Performing Lab: [facility] [place] [address] [address] [facility] [place] [facility] BASIC METABOLI C PANEL (non-fas ting) CHLORIDE [MOLES/VOL UME] IN SERUM OR PLASMA 104 mmol/L 100 - 110 07/06 Specimen Type: SERUM No comment entered. Ordering Provider: OPAL RAZO Report Released Date/Time: Jul 01, 2024 03:56 PM Reporting Lab: [facility] [place] [address] [address] Performing Lab: [facility] [address] [facility] [address] [facility]ENTERRJOHN A. ANDREW MEMORIAL HOSPITALN [facility]ITAL[facility] BASIC METABOLI C PANEL (non-fas ting) CARBON DIOXIDE, TOTAL [MOLES/VOL UME] IN SERUM OR PLASMA 26 meq/L 20 - 30 07/06 Specimen Type: SERUM No comment entered. Ordering Provider: OPAL RAZO Report Released Date/Time: Jul 01, 2024 03:56 PM Reporting Lab: [facility]ENTERRL [facility]ERN [facility]ITALUSE[facility] [address] [facility] [address] Performing Lab: [facility]ENTERRJOHN A. ANDREW MEMORIAL HOSPITALN [address] [address] [facility]ITALUSE [facility] BASIC METABOLI C PANEL (non-fas ting) CREATININE [MASS/VOLU ME] IN SERUM OR PLASMA 1.04 mg/dL 0.50 - 1.40 07/06 Specimen Type: SERUM No comment entered. Ordering Provider: OPAL RAZO Report Released Date/Time: Jul 01, 2024 03:56 PM Reporting Lab: [facility]ENTERRJOHN A. ANDREW MEMORIAL HOSPITALN [address] [address] Performing Lab: [facility]ERRJOHN A[facility] ANDREW MEMORIAL HOSPITALN [address] [address] [facility] BASIC METABOLI C PANEL (non-fas ting) GLOMERULAR FILTRATION RATE/1.73 SQ M.PREDICTE D [VOLUME RATE/AREA] IN SERUM, PLASMA OR BLOOD BY CREATININE -BASED FORMULA (CKD-EPI 2020) 87 mL/min 60 07/06 Specimen Type: SERUM No comment entered. Ordering Provider: OPAL RAZO Report Released Date/Time: Jul 01, 2024 03:56 PM Reporting Lab: [facility]ERRJOHN A[facility] ANDREW MEMORIAL HOSPITALN [address] [address] Performing Lab: [facility] [address] [address] [facility] CBC AND DIFF (AUTO) LEUKOCYTES [#/VOLUME] IN BLOOD BY AUTOMATED COUNT 8.69 10*3/uL 4.50 - 11.00 07/06 Specimen Type: BLOOD No comment entered. Ordering Provider: OPAL RAZO Report Released Date/Time: Jul 01, 2024 03:56 PM Reporting Lab: [facility] [place] [facility] [address] [facility] [address] Performing Lab: [facility] [place] [place] [facility] [address] [facility] [address] [facility] [place] [facility] CBC AND DIFF (AUTO) ERYTHROCYT ES [#/VOLUME] IN BLOOD BY AUTOMATED COUNT 5.01 10*6/uL 4.23 - 5.66 07/06 Specimen Type: BLOOD No comment entered. Ordering Provider: OPAL RAZO Report Released Date/Time: Jul 01, 2024 03:56 PM Reporting Lab: [facility] [place] [address] [address] Performing Lab: [facility] [place] [address] [address] [facility] [place] [facility] CBC AND DIFF (AUTO) HEMOGLOBIN [MASS/VOLU ME] IN BLOOD 16.3 g/dL 12.8 - 17 07/06 Specimen Type: BLOOD No comment entered. Ordering Provider: OPAL RAZO Report Released Date/Time: Jul 01, 2024 03:56 PM Reporting Lab: [facility] [place] [address] [address] Performing Lab: [facility] [place] [place] [facility] [address] [facility] [address] [facility] [place] [facility] CBC AND DIFF (AUTO) HEMATOCRIT [VOLUME FRACTION] OF BLOOD BY AUTOMATED COUNT 47.3 39.2 - 50.4 07/06 Specimen Type: BLOOD No comment entered. Ordering Provider: OPAL RAZO Report Released Date/Time: Jul 01, 2024 03:56 PM Reporting Lab: [facility] [place] [address] [address] Performing Lab: [facility] [place] [facility] [address] [facility] [id number] [facility] [place] [facility] CBC AND DIFF (AUTO) MCV [ENTITIC VOLUME] BY AUTOMATED COUNT 94.4 fL 82 - 99 07/06 Specimen Type: BLOOD No comment entered. Ordering Provider: OPAL RAZO Report Released Date/Time: Jul 01, 2024 03:56 PM Reporting Lab: [facility] [place] [facility] [address] [facility] [address] Performing Lab: [facility] [place] [facility] [address] [facility] [address] [facility] [place] [facility] CBC AND DIFF (AUTO) MCHC [MASS/VOLU ME] BY AUTOMATED COUNT 34.5 g/dL 30.8 - 35.1 07/06 Specimen Type: BLOOD No comment entered. Ordering Provider: OPAL RAZO Report Released Date/Time: Jul 01, 2024 03:56 PM Reporting Lab: [facility] [place] [facility] [address] [facility] [address] Performing Lab: [facility] [place] [facility] [address] [facility] [address] [facility] [place] [facility] CBC AND DIFF (AUTO) PLATELETS [#/VOLUME] IN BLOOD BY AUTOMATED COUNT 282 10*3/uL 140 - 360 07/06 Specimen Type: BLOOD No comment entered. Ordering Provider: OPAL RAZO Report Released Date/Time: Jul 01, 2024 03:56 PM Reporting Lab: [facility] [place] [facility] [address] [facility] [address] Performing Lab: [facility] [place] [facility] [address] [facility] [address] [facility] [place] [facility] CBC AND DIFF (AUTO) ERYTHROCYT E DISTRIBUTI ON WIDTH [RATIO] BY AUTOMATED COUNT 12.7 12.0 - 16.0 07/06 Specimen Type: BLOOD No comment entered. Ordering Provider: OPAL RAZO Report Released Date/Time: Jul 01, 2024 03:56 PM Reporting Lab: [facility] [place] [facility] [address] [facility] [address] Performing Lab: [facility] [place] [facility] [address] [facility] [address] [facility] [place] [facility] CBC AND DIFF (AUTO) MONOCYTES [#/VOLUME] IN BLOOD BY AUTOMATED COUNT 0.49 10*3/uL 0.30 - 1.10 07/06 Specimen Type: BLOOD No comment entered. Ordering Provider: OPAL RAZO Report Released Date/Time: Jul 01, 2024 03:56 PM Reporting Lab: [facility] [place] [facility] [address] [facility] [address] Performing Lab: [facility] [place] [facility] [address] [facility] [address] [facility] [place] [facility] CBC AND DIFF (AUTO) MCH [ENTITIC MASS] BY AUTOMATED COUNT 32.5 pg 26.2 - 32.6 07/06 Specimen Type: BLOOD No comment entered. Ordering Provider: OPAL RAZO Report Released Date/Time: Jul 01, 2024 03:56 PM Reporting Lab: [facility] [place] [facility] [address] [facility] [address] Performing Lab: [facility] [place] [facility] [address] [facility] [address] [facility] [place] [facility] CBC AND DIFF (AUTO) NEUTROPHIL S/100 LEUKOCYTES IN BLOOD BY AUTOMATED COUNT 70.3 43.7 - 75.8 07/06 Specimen Type: BLOOD No comment entered. Ordering Provider: OPAL RAZO Report Released Date/Time: Jul 01, 2024 03:56 PM Reporting Lab: [facility] [place] [facility] [address] [facility] [address] Performing Lab: [facility] [place] [facility] [address] [facility] [address] [facility] [place] [facility] CBC AND DIFF (AUTO) LYMPHOCYTE S/100 LEUKOCYTES IN BLOOD BY AUTOMATED COUNT 22.3 14.0 - 42.3 07/06 Specimen Type: BLOOD No comment entered. Ordering Provider: OPAL RAZO Report Released Date/Time: Jul 01, 2024 03:56 PM Reporting Lab: [facility] [place] [facility] [address] [facility] [address] Performing Lab: [facility] [place] [facility] [address] [facility] [address] [facility] [place] [facility] CBC AND DIFF (AUTO) MONOCYTES/ 100 LEUKOCYTES IN BLOOD BY AUTOMATED COUNT 5.6 5.1 - 13.7 07/06 Specimen Type: BLOOD No comment entered. Ordering Provider: OPAL RAZO Report Released Date/Time: Jul 01, 2024 03:56 PM Reporting Lab: [facility] [facility] [address] [facility] [address] Performing Lab: [facility] [place] [facility] [address] [facility] [address] [facility] [place] [facility] CBC AND DIFF (AUTO) EOSINOPHIL S/100 LEUKOCYTES IN BLOOD BY AUTOMATED COUNT 0.6 0.4 - 6.8 07/06 Specimen Type: BLOOD No comment entered. Ordering Provider: OPAL RAZO Report Released Date/Time: Jul 01, 2024 03:56 PM Reporting Lab: [facility] [place] [address] [address] Performing Lab: [facility] [place] [facility] [address] [facility] [address] [facility] [place] [facility] CBC AND DIFF (AUTO) BASOPHILS/ 100 LEUKOCYTES IN BLOOD BY AUTOMATED COUNT 0.7 0.1 - 2.0 07/06 Specimen Type: BLOOD No comment entered. Ordering Provider: OPAL RAZO Report Released Date/Time: Jul 01, 2024 03:56 PM Reporting Lab: [facility] [place] [facility] [address] [facility] [address] Performing Lab: [facility] [place] [address] [address] [facility] [place] [facility] CBC AND DIFF (AUTO) NEUTROPHIL S [#/VOLUME] IN BLOOD BY AUTOMATED COUNT 6.11 10*3/uL 2.20 - 7.60 07/06 Specimen Type: BLOOD No comment entered. Ordering Provider: OPAL RAZO Report Released Date/Time: Jul 01, 2024 03:56 PM Reporting Lab: [facility] [place] [facility] [address] [facility] [address] Performing Lab: [facility] [place] [facility] [address] [facility] [address] [facility] [place] [facility] CBC AND DIFF (AUTO) LYMPHOCYTE S [#/VOLUME] IN BLOOD BY AUTOMATED COUNT 1.94 10*3/uL 1.00 - 3.20 07/06 Specimen Type: BLOOD No comment entered. Ordering Provider: OPAL RAZO Report Released Date/Time: Jul 01, 2024 03:56 PM Reporting Lab: [facility] [place] [facility] [address] [facility] [address] Performing Lab: [facility] [place] [facility] [address] [facility] [address] [facility] [place] [facility] CBC AND DIFF (AUTO) EOSINOPHIL S [#/VOLUME] IN BLOOD BY AUTOMATED COUNT 0.05 10*3/uL 0.03 - 0.44 07/06 Specimen Type: BLOOD No comment entered. Ordering Provider: OPAL RAZO Report Released Date/Time: Jul 01, 2024 03:56 PM Reporting Lab: [facility] [place] [facility] [address] [facility] [address] Performing Lab: [facility] [place] [address] [address] [facility] [place] [facility] CBC AND DIFF (AUTO) BASOPHILS [#/VOLUME] IN BLOOD BY AUTOMATED COUNT 0.06 10*3/uL 0.01 - 0.13 07/06 Specimen Type: BLOOD No comment entered. Ordering Provider: OPAL RAZO Report Released Date/Time: Jul 01, 2024 03:56 PM Reporting Lab: [facility] [place] [facility] [address] [facility] [address] Performing Lab: [facility] [place] [facility] [address] [facility] [address] [facility] [place] [facility] CBC AND DIFF (AUTO) IMMATURE GRANULOCYT ES/100 LEUKOCYTES IN BLOOD BY AUTOMATED COUNT 0.5 0.0 - 0.7 07/06 Specimen Type: BLOOD No comment entered. Ordering Provider: OPAL RAZO Report Released Date/Time: Jul 01, 2024 03:56 PM Reporting Lab: [facility] [place] [address] [address] Performing Lab: [facility] [place] [address] [address] [facility] [place] [facility] CBC AND DIFF (AUTO) IMMATURE GRANULOCYT ES [#/VOLUME] IN BLOOD 0.04 10*3/uL 0.00 - 0.06 07/06 Specimen Type: BLOOD No comment entered. Ordering Provider: OPAL RAZO Report Released Date/Time: Jul 01, 2024 03:56 PM Reporting Lab: [facility] [place] [place] [address] [address] Performing Lab: [facility] [place] [address] [address] [facility] [place] [facility] CBC AND DIFF (AUTO) NRBC % 0.0 0.0 - 0.0 07/06 Specimen Type: BLOOD No comment entered. Ordering Provider: OPAL RAZO Report Released Date/Time: Jul 01, 2024 03:56 PM Reporting Lab: [facility] [place] [address] [address] Performing Lab: [facility] [place] [address] [address] [facility] [place] [facility] CBC AND DIFF (AUTO) NRBC, ABS 0.00 10*3/uL 0.00 - 0.00 07/06 Specimen Type: BLOOD No comment entered. Ordering Provider: OPAL RAZO Report Released Date/Time: Jul 01, 2024 03:56 PM Reporting Lab: [address] [address] Performing Lab: [address] [address] [facility] T-SPOT TB PANEL MYCOBACTER IUM TUBERCULOS [...] additional information , please refer to [email or web address] Q215 (This link is being provided for information al/ educational purposes only.) Test Performed by [employer] [place], [place] [facility], [address] [place] [address] Mal Freeman M.D., Ph.D., Director of Laboratorie s , CLIA [id number] TEST PERFORMED AT: , Ordering Provider: OPAL RAZO Report Released Date/Time: Jul 10, 2023 10:22 AM Reporting Lab: [address] [place] [address] Performing Lab: [facility] [address] [address] [facility] T-SPOT TB PANEL MYCOBACTER IUM TUBERCULOS [...] additional information , please refer to [email or web address] Q215 (This link is being provided for information al/ educational purposes only.) Test Performed by [facility], [place], [address] [place] [address] Mal Freeman M.D., Ph.D., Director of Laboratorie s , CLIA [id number] TEST PERFORMED AT: , Ordering Provider: OPAL RAZO Report Released Date/Time: Jul 10, 2023 10:22 AM Reporting Lab: [facility] [address] [facility] [address] Performing Lab: [facility] [address] [address] [facility] T-SPOT TB PANEL MYCOBACTER IUM TUBERCULOS [...] additional information , please refer to [email or web address] Q215 (This link is being provided for information al/ educational purposes only.) Test Performed by [facility] [place], [place] [facility], [address] [place] [address] Mal Freeman M.D., Ph.D., Director of Laboratorie s , CLIA [id number] TEST PERFORMED AT: , Ordering Provider: OPAL RAZO Report Released Date/Time: Jul 10, 2023 10:22 AM Reporting Lab: [facility] [address] [facility] [address] Performing Lab: [facility] [address] [address] [facility] T-SPOT TB PANEL MITOGEN STIMULATED GAMMA [...] additional information , please refer to [email or web address] Q215 (This link is being provided for information al/ educational purposes only.) Test Performed by [facility], [place] [facility], [address] [place] [address] Mal Freeman M.D., Ph.D., Director of Laboratorie s , CLIA [id number] TEST PERFORMED AT: , Ordering Provider: OPAL RAZO Report Released Date/Time: Jul 10, 2023 10:22 AM Reporting Lab: [facility] [address] [facility] [address] Performing Lab: [facility] [address] [address] [facility] T-SPOT TB PANEL GAMMA INTERFERON NEGATIVE [...] additional information , please refer to [email or web address] [email or web address]/FA Q215 (This link is being provided for information al/ educational purposes only.) Test Performed by [employer], [place] [facility], [address] [place] [address] Mal Freeman M.D., Ph.D., Director of Laboratorie s , CLIA [id number] TEST PERFORMED AT: , Ordering Provider: OPAL RAZO Report Released Date/Time: Jul 10, 2023 10:22 AM Reporting Lab: [address] [address] Performing Lab: [place] [address] LIVER FUNCTION PROTEIN [MASS/VOLU ME] IN SERUM OR PLASMA 6.7 g/dL 6.0 - 8.3 03/31 Specimen Type: SERUM No comment entered. Ordering Provider: JULES PEREZ Report Released Date/Time: Mar 30, 2023 12:31 PM Reporting Lab: [address] [address] Performing Lab: [address] [address] [facility] LIVER FUNCTION ALBUMIN [MASS/VOLU ME] IN SERUM OR PLASMA 4.1 g/dL 3.5 - 5.0 03/31 Specimen Type: SERUM No comment entered. Ordering Provider: JULES PEREZ Report Released Date/Time: Mar 30, 2023 12:31 PM Reporting Lab: [facility] [place] [facility] [address] [facility] [address] Performing Lab: [facility] [place] [facility] [address] [facility] [address] [facility] [place] [place] [facility] LIVER FUNCTION ALKALINE PHOSPHATAS E [ENZYMATIC ACTIVITY/V OLUME] IN SERUM OR PLASMA 72 U/L 40 - 150 03/31 Specimen Type: SERUM No comment entered. Ordering Provider: JULES PEREZ Report Released Date/Time: Mar 30, 2023 12:31 PM Reporting Lab: [facility] [place] [facility] [address] [facility] [address] Performing Lab: [facility] [place] [facility] [address] [facility] [address] [facility] LIVER FUNCTION ASPARTATE AMINOTRANS FERASE [ENZYMATIC ACTIVITY/V OLUME] IN SERUM OR PLASMA 11 U/L 5 - 34 03/31 Specimen Type: SERUM No comment entered. Ordering Provider: JULES PEREZ Report Released Date/Time: Mar 30, 2023 12:31 PM Reporting Lab: [facility] [place] [facility] [address] [facility] [address] Performing Lab: [facility] [place] [facility] [address] [facility] [address] [facility] LIVER FUNCTION ALANINE AMINOTRANS FERASE [ENZYMATIC ACTIVITY/V OLUME] IN SERUM OR PLASMA 19 U/L 03/31 Specimen Type: SERUM No comment entered. Ordering Provider: JULES PEREZ Report Released Date/Time: Mar 30, 2023 12:31 PM Reporting Lab: [facility] [place] [facility] [address] [facility] [address] Performing Lab: [facility] [place] [facility] [address] [facility] [address] [facility] LIVER FUNCTION BILIRUBIN. TOTAL [MASS/VOLU ME] IN SERUM OR PLASMA 0.4 mg/dL 0.2 - 1.2 03/31 Specimen Type: SERUM No comment entered. Ordering Provider: JULES PEREZ Report Released Date/Time: Mar 30, 2023 12:31 PM Reporting Lab: [facility] [place] [address] [address] Performing Lab: [facility] [place] [facility] [address] [facility] [address] [facility] [place] [place] [facility] AMPHETAM SHERIE SCREEN PANEL AMPHETAMIN [...] Mar 26, 2023 08:40 AM Reporting Lab: [facility] [place] [place] [address] [address] Performing Lab: [facility] [place] [address] [address] [facility]ENT[facility] MEDICAL WESTTRN [place] [facility] AMPHETAM SHERIE SCREEN PANEL PH [...] Mar 26, 2023 08:40 AM Reporting Lab: [facility] [place] [place] [address] [address] Performing Lab: [facility] [address] [address] [facility] [place] [place] [facility] AMPHETAM SHERIE SCREEN PANEL CREATININE [...] Mar 26, 2023 08:40 AM Reporting Lab: [facility] [address] [facility] [address] Performing Lab: [address] [address] [facility] AMPHETAM SHERIE SCREEN PANEL SPECIFIC GRAVITY [...] Mar 26, 2023 08:40 AM Reporting Lab: [facility] [address] [facility] [address] Performing Lab: [facility] [address] [facility] [address] [facility]USE [facility] BENZODIA ZEPINES SCREEN PANEL BENZODIAZE PINES [...] Mar 26, 2023 08:40 AM Reporting Lab: [facility] [place] [facility] [address] [facility] [address] Performing Lab: [facility] [place] [address] [address] [facility] MEDICAL WESTTRN M[place] [facility] BENZODIA ZEPINES SCREEN PANEL PH OF [...] Mar 26, 2023 08:40 AM Reporting Lab: [facility] [place] [place] [address] [address] Performing Lab: [facility] [place] [address] [address] [facility]ITALUSE TS [facility] BENZODIA ZEPINES SCREEN PANEL CREATININE [...] Mar 26, 2023 08:40 AM Reporting Lab: [facility] [place] [address] [address] Performing Lab: [facility] [place] [facility] [address] [facility] [address] PR CNTRL [place] [facility] BENZODIA ZEPINES SCREEN PANEL SPECIFIC [...] Mar 26, 2023 08:40 AM Reporting Lab: [facility] [place] [facility] [address] [facility] [address] Performing Lab: [facility] [place] [facility] [address] [facility] [address] PR CNTRL [place] [facility] Vital Signs Combined list of [...] 08/10/2024 10:08:37 V A CNTRL [place] [facility] TEMPERATURE 98.4 08/10/2024 10:08:37 VA [...] ADM Date DC Date Status [facility] [id number] SUITABI DERICK MILLER T 08/30 Released w/o Limitations [facility] [id number] ad needs ref to pulm for asthma testing TAMI FRIAS 09/04 [facility] Limitations [facility]) OUTPAT[facility] [id number] pulmona ry consult per DERICK Cat T 09/05 Released w/o Limitations [facility] OUTPATIENT [id number] bp check TANVI VINSON 09/27 Released w/o Limitations [facility](S ub[facility] Immed Care) [facility]Sub [facility]se Immed Care) TELE CONSULT [id number] PT require s consult to pulmono logy for asthma evaluat ion DERICK CHAPMAN T 10/01 [facility] ub[facility] Immed Care) [facility]Joellen merton Pulmonolo gy) OUTPATIENT [id number] wheezin g [as a symptom ] GREGORIO_NIDIA CASPER S 10/29 Released with Work/Duty Limitations [facility](B remerto n Pulmono logy) [facility]([facility]) OUTPATIENT [id number] 30YO/FU ON ASTHMA DERICK CHAPMAN T 11/04 Released w/o Limitations [facility](Z ZFamily Medicin e) [facility]([facility]) OUTPATIENT [id number] AD Rash on back x 1-2mo VALDO ALTMAN 02/19 Released w/o Limitations [facility](Z ZFamily Medicin e) [facility](B Chiroprac tic Cln) OUTPATIENT [id number] BACKACH E BHATTI, SPRING N 02/28 Released w/o Limitations [facility](B Chiropr actic Cln) [facility](B Chiroprac tic Cln) OUTPATIENT [id number] f/u upper back pain BHATTI, SPRING N 03/03 Released w/o Limitations [facility](B Chiropr actic Cln) [facility](B Chiroprac tic Cln) OUTPATIENT [id number] f/u upper back pain BHATTI, SPRING N 03/05 Released w/o Limitations [facility](B Chiropr actic Cln) [facility](B Chiroprac tic Cln) OUTPATIENT [id number] f.u per pt BHATTI, SPRING N 03/14 Released w/o Limitations [facility](B Chiropr actic Cln) [facility](B Chiroprac tic Cln) OUTPATIENT [id number] f.u back per pt BHATTI, SPRING N 03/17 Released w/o Limitations [facility](B Chiropr actic Cln) [facility](B Chiroprac tic Cln) OUTPATIENT [id number] LBP BHATTI, SPRING N 03/19 Released w/o Limitations [facility](B Chiropr actic Cln) [facility](Sub ase Patient Ed) OUTPATIENT [id number] PPD intervi ew DAO MATTHEWS S 04/22 Released w/o Limitations [facility](S ubase Patient Ed) [facility](Sub ase Immunizat ions) OUTPATIENT [id number] typhoid DAO MATTHEWS 04/22 Released w/o Limitations [facility](S ubase Immuniz ations) [facility](Sub ase Immunizat ions) OUTPATIENT [id number] hep b DAO MATTHEWS 05/08 Released w/o Limitations [facility](S ubase Immuniz ations) [facility](Sub ase Immunizat ions) OUTPATIENT [id number] HBV#2 DAO MATTHEWS 12/03 Released w/o Limitations [facility](S ubase Immuniz ations) [facility](Sub ase Immunizat ions) OUTPATIENT [id number] TD BERYL AMADOR 12/04 Released w/o Limitations [facility](S ubase Immuniz ations) [facility](Sub ase Optometry [facility]) OUTPATIENT [id number] AD Eye check KEN GARCIA 01/08 Released w/o Limitations [facility](S ubase Optomet ry Clinic) [facility]([facility]) OUTPATIENT [id number] Annual Follow- up for TB Screeni CHARISSA Arizmendi 02/23 Released w/o Limitations [facility](B remerto n Prev Med Clinic) [facility](Sub ase [facility]atio [facility] [place] [facility]) OUTPATIENT [id number] KEMI Taylor 02/23 Released w/o Limitations [place] [facility] [place]-For mitch Pierre(S ubase [facility]) [facility](SD Nutrition ) OUTPATIENT [id number] SAW WRIGHT 03/19 Released w/o Limitations [facility](S D Nutriti on) [facility] SBSQ HOSP IP/OBS MODERATE 35 [id number] Diagnos is: ICD-10- CM F12.20 Cannabi s depende nce, uncompl icated< br/> MIRJULES MILES M 03/04 [facility] THERAPEUTI C ACTIVITIES 55928-7.63 [id number] Diagnos is: ICD-10- CM F25.0 Schizoa ffectiv e disorde r, bipolar type
ANANDAVERITOBUFFY DA T 03/04 [facility] Inpatient Encounter [id number] 03/04 [facility] SBSQ HOSP IP/OBS MODERATE 35 [id number] [id number] Diagnos is: ICD-10- CM F25.0 Schizoa ffectiv e disorde r, bipolar type
MIRJULES MILES M 03/05 [facility] THERAPEUTI C ACTIVITIES [id number] [id number] Diagnos is: ICD-10- CM F25.0 Schizoa ffectiv e disorde r, bipolar type
ANANDABUFFY DA T 03/05 [facility] CASE MANAGEMENT [id number] Diagnos is: ICD-10- CM F25.0 Schizoa ffectiv e disorde r, bipolar type
SU PETTIT N N 03/05 [facility] SBSQ HOSP IP/OBS MODERATE 35 [id number] [id number] Diagnos is: ICD-10- CM F25.0 Schizoa ffectiv e disorde r, bipolar type
JULES PEREZ 03/06 [facility] CASE MANAGEMENT [id number] Diagnos is: ICD-10- CM F25.0 Schizoa ffectiv e disorde r, bipolar type
SU PETTIT N N 03/06 [facility] ELECTROCAR DIOGRAM REPORT [id number] Diagnos is: ICD-10- CM Z13.6 Encount er for screeni ng for cardiov ascular disorde rs
RYAN HINOJOSA 03/06 [place] [facility] ELECTROCAR DIOGRAM TRACING [id number] [id number] MEDARDO PARRISH 03/06 [facility] THERAPEUTI C ACTIVITIES [id number] [id number] Diagnos is: ICD-10- CM F25.0 Schizoa ffectiv e disorde r, bipolar type
BUFFY MALAVE 03/06 [facility] INTRAORAL PERIAPICAL FIRST 39300-9.63 [id number] Diagnos is: ICD-10- CM K08.9 Disorde r of teeth and support ing structu res, unspeci fied
ARIANA SMITH 03/07 [facility] S[facility] HOSP IP/OBS MODERATE 35 [id number] [id number] Diagnos is: ICD-10- CM F12.20 Cannabi s depende nce, uncompl icated< br/> JULES PEREZ 03/07 [facility] CASE MANAGEMENT [id number] [id number] Diagnos is: ICD-10- CM F25.0 Schizoa ffectiv e disorde r, bipolar type
SU PETTIT N N 03/07 [facility] S[facility] HOSP IP/OBS SF/LOW 25 [id number] [id number] Diagnos is: ICD-10- CM F10.24 Alcohol depende nce with alcohol -induce d mood disorde r
Yanni LONG MD 03/08 [facility] S[facility] HOSP IP/OBS SF/LOW 25 22072-3.63 [id number] Diagnos is: ICD-10- CM F10.24 Alcohol depende nce with alcohol -induce d mood disorde r
Yanni LONG MD 03/09 [facility] S[facility]OSP IP/OBS SF/LOW 25 27209-9.63 [id number] Diagnos is: ICD-10- CM F10.24 Alcohol depende nce with alcohol -induce d mood disorde r
Yanni LONG MD 03/10 [facility] CASE MANAGEMENT [id number] [id number] Diagnos is: ICD-10- CM F25.0 Schizoa ffectiv e disorde r, bipolar type
SU PETTIT N N 03/11 [facility] SBSQ HOSP IP/OBS MODERATE 35 79982-7.63 [id number] Diagnos is: ICD-10- CM F25.0 Schizoa ffectiv e disorde r, bipolar type
MIRJULES MILES M 03/11 [facility] SBSQ HOSP IP/OBS MODERATE 35 37408-3.63 [id number] Diagnos is: ICD-10- CM F25.0 Schizoa ffectiv e disorde r, bipolar type
MIROTJULES M 03/12 [facility] CASE MANAGEMENT [id number] [id number] Diagnos is: ICD-10- CM F25.0 Schizoa ffectiv e disorde r, bipolar type
SU PETTIT N N 03/12 [facility] SBSQ HOSP IP/OBS MODERATE 35 10205-3.63 [id number] Diagnos is: ICD-10- CM F25.0 Schizoa ffectiv e disorde r, bipolar type
MIRJULES MILES M 03/13 [facility] 1ST HOSP IP/OBS SF/LOW 40 46429-4.63 [id number] Diagnos is: ICD-10- CM K45.8 Oth abdomin al hernia without obstruc tion or gangren e
VALERIE WATT E 03/13 [facility] CASE MANAGEMENT [id number] [id number] Diagnos is: ICD-10- CM F25.0 Schizoa ffectiv e disorde r, bipolar type
US PETTIT N N 03/13 [facility] SBSQ HOSP IP/OBS MODERATE 35 33121-3.63 [id number] Diagnos is: ICD-10- CM F12.20 Cannabi s depende nce, uncompl icated< br/> JULES PEREZ 03/14 [facility] CASE MANAGEMENT [id number] [id number] Diagnos is: ICD-10- CM F25.0 Schizoa ffectiv e disorde r, bipolar type
SU PETTIT N N 03/14 [facility] SBSQ HOSP IP/OBS SF/LOW 25 64035-3.63 [id number] Diagnos is: ICD-10- CM F25.0 Schizoa ffectiv e disorde r, bipolar type
Yanni LONG MD 03/15 [facility] SBSQ HOSP IP/OBS SF/LOW 25 04281-3.63 [id number] Diagnos is: ICD-10- CM F10.24 Alcohol depende nce with alcohol -induce d mood disorde r
Yanni LONG MD 03/16 [facility] S[facility] HOSP IP/OBS MODERATE 35 59963-5.63 [id number] Diagnos is: ICD-10- CM F12.20 Cannabi s depende nce, uncompl icated< br/> MIROTJULES 03/17 [facility] CASE MANAGEMENT [id number] [id number] Diagnos is: ICD-10- CM F25.0 Schizoa ffectiv e disorde r, bipolar type
SU PETTIT N N 03/17 [facility] Inpatient Encounter [id number] 03/17 [facility] SBSQ HOSP IP/OBS MODERATE 35 27829-9.63 [id number] Diagnos is: ICD-10- CM F12.20 Cannabi s depende nce, uncompl icated< br/> MIROTJULES 03/18 [facility] CASE MANAGEMENT [id number] [id number] Diagnos is: ICD-10- CM F25.0 Schizoa ffectiv e disorde r, bipolar type
SU PETTIT N N 03/18 [facility] GROUP PSYCHOTHER APY 45728-4.63 [id number] Diagnos is: ICD-10- CM F25.0 Schizoa ffectiv e disorde r, bipolar type
ANDRIA DIALLO 03/18 [facility] SBSQ HOSP IP/OBS MODERATE 35 43040-1.63 [id number] Diagnos is: ICD-10- CM F25.0 Schizoa ffectiv e disorde r, bipolar type
ADELSO LOMBARDO 03/18 [facility] SBSQ HOSP IP/OBS MODERATE 35 47400-4.63 [id number] Diagnos is: ICD-10- CM F25.0 Schizoa ffectiv e disorde r, bipolar type
JULES PEREZ 03/19 [facility] ELECTROCAR DIOGRAM TRACING [id number] [id number] FUADDAVID SANTIAGO 03/19 [facility] CASE MANAGEMENT 83254-4.63 [id number] Diagnos is: ICD-10- CM F25.0 Schizoa ffectiv e disorde r, bipolar type
SU PETTIT 03/19 [facility] Inpatient Encounter [id number] Diagnos is: ICD-10- CM K40.91 Unilate ral inguina l hernia, w/o obst or gangren e, recurre nt
HARMAN LEAL S 03/19 [facility] SBSQ HOSP IP/OBS MODERATE 35 13194-4.63 [id number] Diagnos is: ICD-10- CM F10.24 Alcohol depende nce with alcohol -induce d mood disorde r
JULES PEREZ 03/20 [facility] [place] THERAPEUTI C ACTIVITIES 71184-6.54 [id number] Diagnos is: ICD-10- CM F25.0 Schizoa ffectiv e disorde r, bipolar type
BUFFY MALAVE 03/20 [facility] CASE MANAGEMENT [id number] [id number] Diagnos is: ICD-10- CM F25.0 Schizoa ffectiv e disorde r, bipolar type
SU PETTIT N N 03/20 [facility] SBSQ HOSP IP/OBS MODERATE 35 34352-5.63 [id number] Diagnos is: ICD-10- CM F25.0 Schizoa ffectiv e disorde r, bipolar type
JULES PEREZ 03/21 [facility] [place] CASE MANAGEMENT [id number] [id number] Diagnos is: ICD-10- CM F25.0 Schizoa ffectiv e disorde r, bipolar type
SU PETTIT N N 03/21 [facility] [place] CASE MANAGEMENT 22992-4.68 [id number] Diagnos is: ICD-10- CM Z65.3 Problem s related to other legal circums tances< br/> JENNIFER,HEIDI NA E 03/21 [facility] SBSQ HOSP IP/OBS HIGH 50 41100-4.63 [id number] Diagnos is: ICD-10- CM F25.0 Schizoa ffectiv e disorde r, bipolar type
RA Brian KANG 03/22 [facility] SBSQ HOSP IP/OBS HIGH 50 74643-9.63 [id number] Diagnos is: ICD-10- CM F25.0 Schizoa ffectiv e disorde r, bipolar type
RA Brian KANG 03/23 [facility] S[facility] HOSP IP/OBS MODERATE 35 26873-7.63 [id number] Diagnos is: ICD-10- CM F25.0 Schizoa ffectiv e disorde r, bipolar type
MONOJDJULES Brian 03/24 [facility] CASE MANAGEMENT 76189-9.63 [id number] Diagnos is: ICD-10- CM F25.0 Schizoa ffectiv e disorde r, bipolar type
SU PETTIT N 03/24 [facility] S[facility] HOSP IP/OBS MODERATE 35 62664-7.63 [id number] ISADORA COREY 03/25 [facility] [place] [address]-8.63 [id number] Diagnos is: ICD-10- CM F25.0 Schizoa ffectiv e disorde r, bipolar type
BUFFY MALAVE 03/25 [facility] In[facility] Encounter [id number] [id number] RA Brian KANG 03[facility]25 [facility] S[facility] HOSP IP/OBS SF/LOW 25 98010-5.63 [id number] Diagnos is: ICD-10- CM F25.0 Schizoa ffectiv e disorde r, bipolar type
JULES PEREZ 03/26 [facility] CASE MANAGEMENT [id number] [id number] Diagnos is: ICD-10- CM F25.0 Schizoa ffectiv e disorde r, bipolar type
SU PETTIT Estephanie N 03/26 [facility] CASE MANAGEMENT [id number] [id number] Diagnos is: ICD-10- CM Z65.3 Problem s related to other legal circums tances< br/> HEIDI RODRIGUEZ NA E 03/26 [facility] ELECTROCAR DIOGRAM REPORT 14712-4.68 [id number] Diagnos is: ICD-10- CM Z13.6 Encount er for screeni ng for cardiov ascular disorde rs
ROBERT VALDES U 03/26 [place] [facility] ELECTROCAR DIOGRAM TRACING [id number] [id number] ALBA QUISPE 03/26 [facility] [place] ELECTROCAR DIOGRAM TRACING [id number] [id number] JULES PEREZ 03/26 [facility] [place] SBSQ HOSP IP/OBS HIGH 50 71278-7.63 [id number] Diagnos is: ICD-10- CM F31.9 Bipolar disorde r, unspeci fied
RA Brian KANG 03/27 [facility] CASE MANAGEMENT 20957-5.63 [id number] Diagnos is: ICD-10- CM F25.0 Schizoa ffectiv e disorde r, bipolar type
SU PETTIT N N 03/27 [facility] SBSQ HOSP IP/OBS MODERATE 35 47203-0.63 [id number] Diagnos is: ICD-10- CM F25.0 Schizoa ffectiv e disorde r, bipolar type
JULES PEREZ 03/28 [facility] [place] Inpatient Encounter [id number] HODANSU Hummel N 03/28 [facility] [place] THERAPEUTI C ACTIVITIES 60797-2.63 [id number] Diagnos is: ICD-10- CM F25.0 Schizoa ffectiv e disorde r, bipolar type
BUFFY MALAVE T 03/28 [facility] SBSQ HOSP IP/OBS SF/LOW 25 63684-5.63 [id number] Diagnos is: ICD-10- CM F25.0 Schizoa ffectiv e disorde r, bipolar type
JULES PEREZ 03/29 [facility] SBSQ HOSP IP/OBS SF/LOW 25 46644-8.63 [id number] Diagnos is: ICD-10- CM F12.20 Cannabi s depende nce, uncompl icated< br/> JULES PEREZ 03/30 [facility] In[facility] En[facility] [id number] [id number] 03/31 [facility] SBSQ HOSP IP/OBS MODERATE 35 71478-4.63 [id number] Diagnos is: ICD-10- CM F12.20 Cannabi s depende nce, uncompl icated< br/> JULES PEREZ 03/31 [facility] CASE MANAGEMENT [id number] [id number] Diagnos is: ICD-10- CM F25.0 Schizoa ffectiv e disorde r, bipolar type
HODAN,SU N N 03/31 [facility] En[facility] [id number] [id number] 03/31 [facility] SBSQ HOSP IP/OBS MODERATE 35 [id number] [id number] Diagnos is: ICD-10- CM F25.0 Schizoa ffectiv e disorde r, bipolar type
JULES PEREZ 04/01 [facility] PSYTX W PT 60 MINUTES 46262-3.63 [id number] Diagnos is: ICD-10- CM F25.0 Schizoa ffectiv e disorde r, bipolar type
HODANSU N N 04/01 [facility] [place] [id number] [id number] Diagnos is: ICD-10- CM F25.0 Schizoa ffectiv e disorde r, bipolar type
ANANDABUFFY TD Hernandez 04/01 [facility] Encounter [id number] [id number] 04/02 [facility] HOSP IP/OBS DSCHRG MGMT >30 27238-6.63 [id number] Diagnos is: ICD-10- CM F25.0 Schizoa ffectiv e disorde r, bipolar type
JULES PEREZ 04/02 [facility] CASE MANAGEMENT [id number] [id number] Diagnos is: ICD-10- CM F25.0 Schizoa ffectiv e disorde r, bipolar type
SU PETTIT 04/02 [facility] En[facility] [id number] [id number] 04/02 [facility] Outpatient Encounter [id number] 04/03 [facility] Out[facility] Encounter [id number] [id number] 04/04 [facility] Outpatient Encounter [id number] [id number] JD FRIAS 04/04 [facility] Outpatient Encounter [id number] [id number] SHERLY COLLINS 04/10 [facility] Encounter [id number] [id number] 04/14 [facility] Encounter [id number] [id number] 04/14 [facility] En[facility] [id number] [id number] 04/15 [facility] En[facility] [id number] [id number] 04/16 [facility] En[facility] [id number] [id number] 04/17 [facility] En[facility] [id number] 04/18 [facility] CASE MANAGEMENT [id number] [id number] Diagnos is: ICD-10- CM Z59.01 Correction ed homeles snbrennan<b r/> FOX JOYCE 04/21 [facility] En[facility] [id number] 04/24 [facility] Encounter [id number] 04/29 [facility] Encounter [id number] 04/30 [facility] Encounter [id number] 05/01 [facility] Encounter [id number] 05/05 [facility] HC PRO PHONE CALL 5-10 MIN [id number] [id number] Diagnos is: ICD-10- CM F10.24 Alcohol depende nce with alcohol -induce d mood disorde r
Meredith TOLBERT 05/05 [facility] PSYTX W PT 30 MINUTES [id number] [id number] Diagnos is: ICD-10- CM F10.24 Alcohol depende nce with alcohol -induce d mood disorde r
KIANA GARCIA ON A 05/06 [facility] PSYTX W PT 45 MINUTES [id number] Diagnos is: ICD-10- CM F10.24 Alcohol depende nce with alcohol -induce d mood disorde r
JUSTIN ADAME 05/08 [facility] Outpatient Encounter [id number] JUSTIN ADAME 05/08 [facility] CASE MANAGEMENT [id number] Diagnos is: ICD-10- CM Z65.3 Problem s related to other legal circums tances< br/> HEIDI RODRIGUEZ NA Azael 05/09 [facility] HC PRO PHONE CALL 5-10 MIN [id number] Diagnos is: ICD-10- CM Z65.3 Problem s related to other legal circums tances< br/> JENNIFER,HEIDI NA E 05/16 [facility] OFFICE O/P EST SF 10-19 MIN [id number] Diagnos is: ICD-10- CM F10.24 Alcohol depende nce with alcohol -induce d mood disorde r
Yanni LONG MD 05/16 [facility] Outpatient Encounter [id number] 05/21 [facility] CASE MANAGEMENT [id number] Diagnos is: ICD-10- CM Z59.01 Correction ed homeles sness<b r/> FOX JOYCE 05/29 [facility] Outpatient Encounter [id number] HELEN LEONARD 06/11 [facility] Outpatient Encounter [id number] 06/13 [facility] CASE MANAGEMENT [id number] Diagnos is: ICD-10- CM Z65.3 Problem s related to other legal circums tances< br/> JENNIFER,HEIDI NA E 06/18 [facility] Outpatient Encounter [id number] 06/19 [facility] OFFICE O/P EST MOD 30-39 MIN [id number] Diagnos is: ICD-10- CM J45.998 Other asthma< br/> IRAIDA LOWRY 06/19 [facility] Out[facility]counter [id number] 06/20 [facility] Out[facility] Encounter [id number] 06/22 [facility] Out[facility] Encounter [id number] 07/07 [facility] Out[facility] Encounter [id number] 07/08 [facility] CASE MANAGEMENT [id number] Diagnos is: ICD-10- CM F25.0 Schizoa ffectiv e disorde r, bipolar type
FOX JOYCE 07/09 [facility] OFFICE O/P EST MOD 30-39 MIN [id number] Diagnos is: ICD-10- CM M25.562 Pain in left knee
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
DARLENE CRUZ 07/10 [facility] Out[facility] Encounter [id number] 07/10 [facility] FIT SPECTACLES MONOFOCAL [id number] Diagnos is: ICD-10- CM Z46.0 Encount er for fit/adj st of spectac les and contact lenses< br/> CARYL MARCUS 07/11 [facility] OFFICE O/P EST LOW 20-29 MIN [id number] Diagnos is: ICD-10- CM F25.0 Schizoa ffectiv e disorde r, bipolar type
Yanni LONG MD 07/17 [facility] Outpatient Encounter [id number] 07/19 [facility] Outpatient Encounter [id number] 07/21 [facility] Outpatient Encounter [id number] 08/12 [facility] CASE MANAGEMENT [id number] Diagnos is: ICD-10- CM Z65.3 Problem s related to other legal circums tances< br/> JENNIFER,HEIDI NA E 09/10 [facility] PSYTX W PT 30 MINUTES [id number] Diagnos is: ICD-10- CM F25.0 Schizoa ffectiv e disorde r, bipolar type
KIANA GARCIA ON A 09/11 [facility] Out[facility] Encounter [id number] 09/26 [facility] PSYTX W PT 30 MINUTES [id number] Diagnos is: ICD-10- CM F25.0 Schizoa ffectiv e disorde r, bipolar type
JOSEMARSHAMISSAEL ON A 11/19 [facility] OFFICE O/P EST LOW 20 MIN [id number] Diagnos is: ICD-10- CM F25.0 Schizoa ffectiv e disorde r, bipolar type
Yanni LONG MD 11/19 [facility] Encounter [id number] 11/19 [facility] Encounter [id number] 12/02 [facility] Out[facility] Encounter [id number] 01/01 [facility] Outpatient Encounter [id number] 01/01 [facility] OFF/OP EST MAY X REQ PHY/QHP [id number] Diagnos is: ICD-10- CM F10.24 Alcohol depende nce with alcohol -induce d mood disorde r
Meredith SCOTT ATRICIA A 04/08 [facility] OFF[facility] O/P EST MOD 30 MIN [id number] Diagnos is: ICD-10- CM I10 Essenti al (primar y) hyperte nsion<b r/> OPAL ANAYA 06/09 [facility] Outpatient Encounter [id number] 06/10 [facility] OFFICE O/P EST LOW 20 MIN [id number] Diagnos is: ICD-10- CM F25.0 Schizoa ffectiv e disorde r, bipolar type
Yanni LONG MD 06/17 [facility] Outpatient Encounter [id number] Brian YANCEY 07/01 [facility] Outpatient Encounter [id number] 07/01 [facility] OFFICE O/P NEW MOD 45 MIN [id number] Diagnos is: ICD-10- CM M54.59 Other low back pain
MITRA BRAR RA 07/06 [facility] ORTHC/PROS TC MGMT SBSQ ENC [id number] Diagnos is: ICD-10- CM M25.562 Pain in left knee
Brian SHAFFER 07/06 [facility] Out[facility] Encounter [id number] 1.07/06 [facility] HC PRO PHONE CALL 5-10 MIN [id number] 1. Diagnos is: ICD-10- CM Z71.89 Other specifi ed certified alcohol counselor ing<br/ > YAJAIRA VALENCIA 07/06 [facility] Outpatient Encounter [id number] 1.07/13 [facility] Outpatient Encounter [id number] 1.07/14 [facility] OFFICE O/P EST MOD 30 MIN [id number] Diagnos is: ICD-10- CM I10 Essenti al (primar y) hyperte nsion<b r/> OPAL ANAYA 07/14 [facility] Outpatient Encounter [id number] 1.07/22 [facility] Outpatient Encounter [id number] 1.07/26 [facility] Out[facility] Encounter [id number] 1.07/27 [facility] OFFICE O/P EST LOW 20 MIN [id number] Diagnos is: ICD-10- CM F25.0 Schizoa ffectiv e disorde r, bipolar type
Yanni LONG MD 07/28 [facility] Out[facility] Encounter [id number] 07/28 [facility] Outpatient Encounter [id number] 08/09 [facility] OFFICE O/P NEW SF 15 MIN [id number] Diagnos is: ICD-10- CM L60.3 Nail dystrop hy
FRANCISCO NESBITT RLES D 08/10 [facility] Outpatient Encounter [id number] 08/23 [facility] Outpatient Encounter [id number] 08/26 [facility] Outpatient Encounter [id number] 08/27 [facility] Procedures Combined list of: 1) Procedures from Department of Veterans Affairs facilities going back up to thelast 18 months, not all [place] non-surgical procedures are included; 2) All procedures from the Department of Defense facilities. Procedure Procedure Type Code Date Perfomer Comments [facility] BEHAVIORAL HEALTH; SHORT-TERM RESIDENTIAL (NON-HOSPITAL RESIDENTIAL TREATMENT PROGRAM), WITHOUT ROOM AND BOARD, MULTIMEDIA EDITOR 007 [facility] BEHAVIORAL HEALTH; SHORT-TERM RESIDENTIAL (NON-HOSPITAL RESIDENTIAL TREATMENT PROGRAM), WITHOUT ROOM AND BOARD, MULTIMEDIA EDITOR 007 [facility] INDIVIDUAL PSYCHOTHERAPY, INSIGHT ORIENTED, BEHAVIOR MODIFYING AND/OR SUPPORTIVE, IN AN OFFICE OR OUTPATIENT FACILITY, APPROXIMATELY 75 TO 80 MINUTES ISSQ-UN-NPCH WITH THE PATIENT 007 [facility] BEHAVIORAL HEALTH; SHORT-TERM RESIDENTIAL (NON-HOSPITAL RESIDENTIAL TREATMENT PROGRAM), WITHOUT ROOM AND BOARD, MULTIMEDIA EDITOR 007 [facility]; SHORT-TERM RESIDENTIAL (NON-HOSPITAL RESIDENTIAL TREATMENT PROGRAM), WITHOUT ROOM AND BOARD, MULTIMEDIA EDITOR 007 [facility]; SHORT-TERM RESIDENTIAL (NON-HOSPITAL RESIDENTIAL TREATMENT PROGRAM), WITHOUT ROOM AND BOARD, MULTIMEDIA EDITOR 007 [facility] BEHAVIORAL HEALTH; SHORT-TERM RESIDENTIAL (NON-HOSPITAL RESIDENTIAL TREATMENT PROGRAM), WITHOUT ROOM AND BOARD, MULTIMEDIA EDITOR 007 [facility]; SHORT-TERM RESIDENTIAL (NON-HOSPITAL RESIDENTIAL TREATMENT PROGRAM), WITHOUT ROOM AND BOARD, MULTIMEDIA EDITOR 007 [facility]; SHORT-TERM RESIDENTIAL (NON-HOSPITAL RESIDENTIAL TREATMENT PROGRAM), WITHOUT ROOM AND BOARD, MULTIMEDIA EDITOR 007 [facility]; SHORT-TERM RESIDENTIAL (NON-HOSPITAL RESIDENTIAL TREATMENT PROGRAM), WITHOUT ROOM AND BOARD, MULTIMEDIA EDITOR 007 [facility]; SHORT-TERM RESIDENTIAL (NON-HOSPITAL RESIDENTIAL TREATMENT PROGRAM), WITHOUT ROOM AND BOARD, MULTIMEDIA EDITOR 007 [facility]; SHORT-TERM RESIDENTIAL (NON-HOSPITAL RESIDENTIAL TREATMENT PROGRAM), WITHOUT ROOM AND BOARD, MULTIMEDIA EDITOR 007 [facility]; SHORT-TERM RESIDENTIAL (NON-HOSPITAL RESIDENTIAL TREATMENT PROGRAM), WITHOUT ROOM AND BOARD, MULTIMEDIA EDITOR 007 [facility]; SHORT-TERM RESIDENTIAL (NON-HOSPITAL RESIDENTIAL TREATMENT PROGRAM), WITHOUT ROOM AND BOARD, MULTIMEDIA EDITOR 007 [facility]; SHORT-TERM RESIDENTIAL (NON-HOSPITAL RESIDENTIAL TREATMENT PROGRAM), WITHOUT ROOM AND BOARD, MULTIMEDIA EDITOR 007 [facility]; SHORT-TERM RESIDENTIAL (NON-HOSPITAL RESIDENTIAL TREATMENT PROGRAM), WITHOUT ROOM AND BOARD, MULTIMEDIA EDITOR 007 [facility]; SHORT-TERM RESIDENTIAL (NON-HOSPITAL RESIDENTIAL TREATMENT PROGRAM), WITHOUT ROOM AND BOARD, MULTIMEDIA EDITOR 007 [facility]; SHORT-TERM RESIDENTIAL (NON-HOSPITAL RESIDENTIAL TREATMENT PROGRAM), WITHOUT ROOM AND BOARD, MULTIMEDIA EDITOR 007 [facility]; SHORT-TERM RESIDENTIAL (NON-HOSPITAL RESIDENTIAL TREATMENT PROGRAM), WITHOUT ROOM AND BOARD, MULTIMEDIA EDITOR 007 [facility]; SHORT-TERM RESIDENTIAL (NON-HOSPITAL RESIDENTIAL TREATMENT PROGRAM), WITHOUT ROOM AND BOARD, MULTIMEDIA EDITOR 007 [facility]; SHORT-TERM RESIDENTIAL (NON-HOSPITAL RESIDENTIAL TREATMENT PROGRAM), WITHOUT ROOM AND BOARD, MULTIMEDIA EDITOR 007 [facility]; SHORT-TERM RESIDENTIAL (NON-HOSPITAL RESIDENTIAL TREATMENT PROGRAM), WITHOUT ROOM AND BOARD, MULTIMEDIA EDITOR [facility] MEDICAL NUTRITION THERAPY; GROUP (2 OR MORE INDIVIDUAL(S)), EACH 30 MINUTES [facility] BEHAVIORAL HEALTH; SHORT-TERM RESIDENTIAL (NON-HOSPITAL RESIDENTIAL TREATMENT PROGRAM), WITHOUT ROOM AND BOARD, MULTIMEDIA EDITOR [facility] BEHAVIORAL HEALTH; SHORT-TERM RESIDENTIAL (NON-HOSPITAL RESIDENTIAL TREATMENT PROGRAM), WITHOUT ROOM AND BOARD, MULTIMEDIA EDITOR [facility] PSYCHIATRIC DIAGNOSTIC INTERVIEW EXAMINATION [facility] BEHAVIORAL HEALTH; SHORT-TERM RESIDENTIAL (NON-HOSPITAL RESIDENTIAL TREATMENT PROGRAM), WITHOUT ROOM AND BOARD, MULTIMEDIA EDITOR [facility] NONINVASIVE EAR OR PULSE OXIMETRY FOR OXYGEN SATURATION; SINGLE DETERMINATION [facility] EDUCATIONAL SUPPLIES, SUCH BOOKS, TAPES, AND PAMPHLETS, FOR THE PATIENT'S EDUCATION AT COST TO PHYSICIAN OR OTHER QUALIFIED HEALTH WELDING MACHINE OPERATOR GAS [facility] BEHAVIORAL HEALTH COUNSELING AND THERAPY, PER 15 MINUTES [facility] OPHTHALMOLOGICAL SERVICES: MEDICAL EXAMINATION AND EVALUATION, WITH INITIATION OR CONTINUATION OF DIAGNOSTIC AND TREATMENT PROGRAM; COMPREHENSIVE, ESTABLISHED PATIENT, 1 OR MORE VISITS [facility] TETANUS AND DIPHTHERIA TOXOIDS (TD) ADSORBED WHEN ADMINISTERED TO INDIVIDUALS 7 YEARS OR OLDER, FOR INTRAMUSCULAR USE [facility] HEPATITIS B VACCINE (HEPB), ADULT DOSAGE, 3 DOSE SCHEDULE, FOR INTRAMUSCULAR USE [facility] HEPATITIS B VACCINE (HEPB), ADULT DOSAGE, 3 DOSE SCHEDULE, FOR INTRAMUSCULAR USE [facility] TYPHOID VACCINE, CAPSULAR POLYSACCHARIDE (VICPS), FOR INTRAMUSCULAR USE [facility] APPLICATION OF A MODALITY TO 1 OR MORE AREAS; HOT OR COLD PACKS [facility] MANUAL THERAPY TECHNIQUES (EG, MOBILIZATION/ MANIPULATION, MANUAL LYMPHATIC DRAINAGE, MANUAL TRACTION), 1 OR MORE REGIONS, EACH 15 MINUTES [facility] APPLICATION OF A MODALITY TO 1 OR MORE AREAS; HOT OR COLD PACKS [facility] THERAPEUTIC PROCEDURE, 1 OR MORE AREAS, EACH 15 MINUTES; THERAPEUTIC EXERCISES TO DEVELOP STRENGTH AND ENDURANCE, RANGE OF MOTION AND FLEXIBILITY [facility] APPLICATION OF A MODALITY TO 1 OR MORE AREAS; ELECTRICAL STIMULATION (UNATTENDED) [facility] APPLICATION OF A MODALITY TO 1 OR MORE AREAS; HOT OR COLD PACKS [facility] OPHTHALMOLOGICAL SERVICES: MEDICAL EXAMINATION AND EVALUATION, WITH INITIATION OR CONTINUATION OF DIAGNOSTIC AND TREATMENT PROGRAM; INTERMEDIATE, ESTABLISHED PATIENT [facility] [employer] EVALUATION, [place] [address], WITH ADMINISTERED AGENTS (EG, ANTIGEN[S], COLD AIR, METHACHOLINE) [facility] ELECTROCARDIOGRAM, ROUTINE ECG WITH AT LEAST 12 LEADS; WITH INTERPRETATION AND REPORT [facility] ELECTROCARDIOGRAM, ROUTINE ECG WITH AT LEAST 12 LEADS; WITH INTERPRETATION AND REPORT [facility] OPHTHALMOLOGICAL SERVICES: MEDICAL EXAMINATION AND EVALUATION, WITH INITIATION OR CONTINUATION OF DIAGNOSTIC AND TREATMENT PROGRAM; INTERMEDIATE, ESTABLISHED PATIENT [facility] SPECIAL REPORTS SUCH INSURANCE FORMS, MORE THAN THE INFORMATION CONVEYED IN THE USUAL MEDICAL COMMUNICATIONS OR STANDARD REPORTING FORM [facility] FITTING OF SPECTACLES, EXCEPT FOR APHAKIA; BIFOCAL [facility] ALCOHOL AND/OR DRUG SERVICES; INTENSIVE OUTPATIENT (TX PRGM OPERATES >= 3 HRS/DAY & >= 3 DAYS/WK & IS BASED ON INDIVID TX PLAN),INCL ASSESS,DIVE SUPERVISOR;CRISI S INTERVENTN,& ACT THERAPIES/EDUC [facility] ALCOHOL AND/OR DRUG SERVICES; INTENSIVE OUTPATIENT (TX PRGM OPERATES >= 3 HRS/DAY & >= 3 DAYS/WK & IS BASED ON INDIVID TX PLAN),INCL ASSESS,DIVE SUPERVISOR;CRISI S INTERVENTN,& ACT THERAPIES/EDUC [facility] ALCOHOL AND/OR DRUG SERVICES; CASE MANAGEMENT [facility] ALCOHOL AND/OR DRUG SERVICES; INTENSIVE OUTPATIENT (TX PRGM OPERATES >= 3 HRS/DAY & >= 3 DAYS/WK & IS BASED ON INDIVID TX PLAN),INCL ASSESS,DIVE SUPERVISOR;CRISI S INTERVENTN,& ACT THERAPIES/EDUC [facility] ALCOHOL AND/OR DRUG SERVICES; INTENSIVE OUTPATIENT (TX PRGM OPERATES >= 3 HRS/DAY & >= 3 DAYS/WK & IS BASED ON INDIVID TX PLAN),INCL ASSESS,DIVE SUPERVISOR;CRISI S INTERVENTN,& ACT THERAPIES/EDUC [facility] ALCOHOL AND/OR DRUG SERVICES; INTENSIVE OUTPATIENT (TX PRGM OPERATES >= 3 HRS/DAY & >= 3 DAYS/WK & IS BASED ON INDIVID TX PLAN),INCL ASSESS,DIVE SUPERVISOR;CRISI S INTERVENTN,& ACT THERAPIES/EDUC [facility] ALCOHOL AND/OR DRUG SERVICES; INTENSIVE OUTPATIENT (TX PRGM OPERATES >= 3 HRS/DAY & >= 3 DAYS/WK & IS BASED ON INDIVID TX PLAN),INCL ASSESS,DIVE SUPERVISOR;CRISI S INTERVENTN,& ACT THERAPIES/EDUC 002 [facility] ALCOHOL AND/OR DRUG SERVICES; CASE MANAGEMENT 002 [facility] ALCOHOL AND/OR DRUG SERVICES; INTENSIVE OUTPATIENT (TX PRGM OPERATES >= 3 HRS/DAY & >= 3 DAYS/WK & IS BASED ON INDIVID TX PLAN),INCL ASSESS,DIVE SUPERVISOR;CRISI S INTERVENTN,& ACT THERAPIES/EDUC 002 [facility] ALCOHOL AND/OR DRUG SERVICES; INTENSIVE OUTPATIENT (TX PRGM OPERATES >= 3 HRS/DAY & >= 3 DAYS/WK & IS BASED ON INDIVID TX PLAN),INCL ASSESS,DIVE SUPERVISOR;CRISI S INTERVENTN,& ACT THERAPIES/EDUC 002 [facility] ALCOHOL AND/OR DRUG SERVICES; INTENSIVE OUTPATIENT (TX PRGM OPERATES >= 3 HRS/DAY & >= 3 DAYS/WK & IS BASED ON INDIVID TX PLAN),INCL ASSESS,DIVE SUPERVISOR;CRISI S INTERVENTN,& ACT THERAPIES/EDUC 002 [facility] ALCOHOL AND/OR DRUG SERVICES; CASE MANAGEMENT 002 [facility] ALCOHOL AND/OR DRUG SERVICES; INTENSIVE OUTPATIENT (TX PRGM OPERATES >= 3 HRS/DAY & >= 3 DAYS/WK & IS BASED ON INDIVID TX PLAN),INCL ASSESS,DIVE SUPERVISOR;CRISI S INTERVENTN,& ACT THERAPIES/EDUC 002 [facility] ALCOHOL AND/OR DRUG SERVICES; INTENSIVE OUTPATIENT (TX PRGM OPERATES >= 3 HRS/DAY & >= 3 DAYS/WK & IS BASED ON INDIVID TX PLAN),INCL ASSESS,DIVE SUPERVISOR;CRISI S INTERVENTN,& ACT THERAPIES/EDUC 002 [facility] ALCOHOL AND/OR DRUG SERVICES; INTENSIVE OUTPATIENT (TX PRGM OPERATES >= 3 HRS/DAY & >= 3 DAYS/WK & IS BASED ON INDIVID TX PLAN),INCL ASSESS,DIVE SUPERVISOR;CRISI S INTERVENTN,& ACT THERAPIES/EDUC 002 [facility] ALCOHOL AND/OR DRUG SERVICES; INTENSIVE OUTPATIENT (TX PRGM OPERATES >= 3 HRS/DAY & >= 3 DAYS/WK & IS BASED ON INDIVID TX PLAN),INCL ASSESS,DIVE SUPERVISOR;CRISI S INTERVENTN,& ACT THERAPIES/EDUC 002 [facility] ALCOHOL AND/OR DRUG SERVICES; CASE MANAGEMENT [facility] PSYCHIATRIC EVALUATION OF HOSPITAL RECORDS, OTHER PSYCHIATRIC REPORTS, PSYCHOMETRIC AND/OR PROJECTIVE TESTS, AND OTHER ACCUMULATED DATA FOR MEDICALDIAGNOSTIC PURPOSES [facility] ALCOHOL AND/OR DRUG SERVICES; INTENSIVE OUTPATIENT (TX PRGM OPERATES >= 3 HRS/DAY & >= 3 DAYS/WK & IS BASED ON INDIVID TX PLAN),INCL ASSESS,DIVE SUPERVISOR;SHERIDAN Ramos INTERVENTN,& ACT THERAPIES/EDUC [facility] PSYCHIATRIC DIAGNOSTIC INTERVIEW EXAMINATION [facility] BEHAVIORAL HEALTH SCREENING TO DETERMINE ELIGIBILITY FOR ADMISSION TO TREATMENT PROGRAM [facility] OPHTHALMOLOGICAL SERVICES: MEDICAL EXAMINATION AND EVALUATION WITH INITIATION OF DIAGNOSTIC AND TREATMENT PROGRAM; INTERMEDIATE, NEW PATIENT 002 [facility] Behavioral health; short-term residential (non-hospital residential treatment program), without room and board, camera operator 007 GOYO OZUNA [facility] Alcohol and/or drug services; group counseling by a clinician 007 GOYO OZUNA Psychotherapy Individual Approximately 75-80 Minutes Psychotherapy Individual Approximately 75-80 Minutes [id number] 007 GOYO OZUNA [facility] Behavioral health; short-term residential (non-hospital residential treatment program), without room and board, camera operator 007 GOYO OZUNA [facility] Alcohol and/or drug services; group counseling by a clinician GOYO FRIAS Psychotherapy Individual Approximately 45 Minutes Psychotherapy Individual Approximately 45 Minutes [id number] [id number] GOYO OZUNA [facility] Medical Nutrition Therapy Group (2 or More Individuals) Each 30 Minutes Medical Nutrition Therapy Group (2 or More Individuals) Each 30 Minutes [id number] 007 SAW SHEARER [facility] Behavioral health; short-term residential (non-hospital residential treatment program), without room and board, camera operator 007 GOYO OZUNA [facility] Alcohol and/or drug services; group counseling by a clinician GOYO FRIAS Psychiatric Diagnostic Evaluation Comprehensive Examination Psychiatric Diagnostic Evaluation Comprehensive Examination [id number] 007 GOYO OZUNA Psychiatric Diagnostic Evaluation Comprehensive Examination Psychiatric Diagnostic Evaluation Comprehensive Examination 30502 007 BRETT PRATER [facility] Venipuncture Venipuncture 70628 OMEGA NIEVES Breathalyzer For Blood Alcohol Content Breathalyzer For Blood Alcohol Content 41459 007 OMEGA NIEVES Physician Supervised Services Provision Of Educational Supplies Physician Supervised Services Provision Of Educational Supplies 21254 CHARISSA FLETCHER Behavioral health counseling and therapy, [...] Comprehensive Examination Psychiatric Diagnostic Evaluation Comprehensive Examination 52545 DAI MCDOWELL Spectacles Services Fitting Monofocal Except For Aphakia Spectacles Services Fitting Monofocal Except For Aphakia 44021 KEN GARCIA Determination Of Refractive State Determination Of Refractive State 94587 KEN GARCIA Ophthalmological Prior Patient Start Comprehensive Care Ophthalmological Prior Patient Start Comprehensive Care 22366 KEN GARCIA Td Vaccine Seven Years Of Age And Above Td Vaccine Seven Years Of Age And Above 29480 DIANA RACHEL Immunization Administration By Injection, One Vaccine Immunization Administration By Injection, One Vaccine 61007 DIANA RACHEL Hepatitis B Vaccine (Active) Adult Dosage DIANA RACHEL Immunization Administration By Injection, One Vaccine Immunization Administration By Injection, One Vaccine 20443 DIANA RACHEL Immunization Administration By Injection, One Vaccine Immunization Administration By Injection, One Vaccine 41231 DIANA RACHEL Hepatitis B Vaccine (Active) Adult Dosage RACHEL, DIANA S DoD Immunization Administration By Injection, One Vaccine Immunization Administration By Injection, One Vaccine 78802 006 MILAGRO MARTELL DoD Typhoid Vaccine Vi Capsular Polysaccharide, For Intramus Use Typhoid Vaccine Vi Capsular Polysaccharide, For Intramus Use 93213 006 MILAGRO MARTELL [facility] Chiropractic Manip Treatmt (CMT) Spinal One To Two Regions Chiropractic Manip Treatmt (CMT) Spinal One To Two Regions 40912 006 BHATTI, [place] N DoD Modalities Heat Hot Packs Modalities Heat Hot Packs 03118 006 BHATTI, [place] N cx, tx 20 mins DoD Mobilization Soft Ti ue Mobilization Soft Tissue 80973 006 BHATTI, [place] N pivot tx subocc. 8m DoD A isted Exercises For ROM Assisted [place]ercises [place] ROM 05146 006 BHATTI, [place] N 02/28/2006 DoD Modalities Electrical Stimulation Unattended Modalities Electrical Stimulation Unattended 71411 006 BHATTI, [place] N IFC, 50-150, 100% 20 mins, left mid back, max 18 DoD Modalities Traction Modalities Traction 95294 0 006 BHATTI, [place] N intersegmental: tx 10, lx 7 10 mins DoD Chiropractic Manip Treatmt (CMT) Spinal One To Two Regions Chiropractic Manip Treatmt (CMT) Spinal One To Two Regions 48232 006 BHATTI, [place] N DoD Modalities Traction Modalities Traction 20693 0 006 BHATTI, [place] N Intersegmental - tx 10, lx 7, 10 min. DoD Modalities Electrical Stimulation Unattended Modalities Electrical Stimulation Unattended 40032 006 BHATTI, [place] IFC, 100%, 80-150, 20 min, left tx paraspinal, max 20 DoD Modalities Heat Hot Packs Modalities Heat Hot Packs 90118 006 BHATTI, [place] N Upper back 20 mins DoD A isted Exercises For ROM Assisted Exercises For ROM 73297 006 BHATTI, [place] N 02/28/06 DoD Mobilization Soft Ti ue Mobilization Soft Tissue 26931 006 BHATTI, [place] N pivot tx subocc 8m DoD Chiropractic Manip Treatmt (CMT) Spinal One To Two Regions Chiropractic Manip Treatmt (CMT) Spinal One To Two Regions 80078 006 BHATTI, [place] N DoD A isted Exercises For ROM Assisted Exercises For ROM 07117 006 BHATTI, [place] N 02/28/06 10m, reviewed with patient. DoD Modalities Traction Modalities Traction 99784 0 006 BHATTI, [place] N tx 10, lx 7, 10 mins DoD Modalities Heat Hot Packs Modalities Heat Hot Packs 08682 006 BHATTI, [place] N tx 20 mins DoD Mobilization Soft Ti ue Mobilization Soft Tissue 03491 006 BHATTI, [place] N pivot tx subocc 8m DoD Modalities Electrical Stimulation Unattended Modalities Electrical Stimulation Unattended 31803 006 BHATTI, [place] N IFC, 100%, 80-150, 20 mins, left midback, max 18 DoD Chiropractic Manip Treatmt (CMT) Spinal One To Two Regions Chiropractic Manip Treatmt (CMT) Spinal One To Two Regions 64778 006 BHATTI, [place] N DoD Mobilization Soft Ti ue Mobilization Soft Tissue 51248 006 BHATTI, [place] N pivot tx subocc. 8m DoD Modalities Electrical Stimulation Unattended Modalities Electrical Stimulation Unattended 47441 006 BHATTI, [place] N IFC 100% 80-150. 20 mins, left interscapular region, max 21 DoD Modalities Traction Modalities Traction 22898 0 006 BHATTI, [place] N Intersegmental - tx 9, lx 7, 10 min. DoD Modalities Heat Hot Packs Modalities Heat Hot Packs 12087 006 BHATTI, [place] N 20 mins tx DoD A isted Exercises For ROM Assisted [place]ises For ROM 28747 006 BHATTI, SPR[place] N 02/28/06 DoD Chiropractic Manip Treatmt (CMT) Spinal One To Two Regions Chiropractic Manip Treatmt (CMT) Spinal One To Two Regions 34928 006 BHATTI, [place] N DoD A isted Exercises For ROM Assisted Exercises For ROM 76454 006 BHATTI, [place] N 02/28/2006 DoD Mobilization Soft Ti ue Mobilization Soft Tissue 07951 006 BHATTI, [place] N pivot tx subocc 10m DoD Modalities Heat Hot Packs Modalities Heat Hot Packs 40970 006 BHATTI, [place] N 20 mins neck/upper back DoD Modalities Traction Modalities Traction 90777 0 006 BHATTI, [place] N Intersegmental - tx 9 , lx 7 , 10 min. DoD Modalities Electrical Stimulation Unattended Modalities Electrical Stimulation Unattended 15761 006 BHATTI, [place] N IFC- 100% 80-150, 20 mins, left interscapular region, max 26 DoD Chiropractic Manip Treatmt (CMT) Spinal One To Two Regions Chiropractic Manip Treatmt (CMT) Spinal One To Two Regions 13993 006 BHATTI, [place] N DoD Modalities Electrical Stimulation Unattended Modalities Electrical Stimulation Unattended 69491 006 BHATTI, [place] N IFC, 100%, 80-150, 20 min, left interscap, max 21 pt notes relief. DoD Modalities Traction Modalities Traction 02969 0 006 BHATTI, [place] N Intersegmental - tx 9, lx 7, 10 min. DoD A isted Exercises [place] 24197 006 BHATTI, [place] N Cervical Therex: Tension release stretches for the neck. Reviewed with patient, handout provided. Corrective postural therex: Anterior chest/pec. major stretch, standing wall posture ex. for the neck and mid back. Reviewed with patient, handout provided. DoD Mobilization Soft Ti ue Mobilization Soft Tissue 89704 006 BHATTI, [place] N pivot tx subocc 10m DoD Modalities Heat Hot Packs Modalities Heat Hot Packs 32354 006 BHATTI, [place] N 20m tx. 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 Social History Type Response Date Comment Sourc e Tobacco smoking status NHIS VA-TOBACCO USE [place] 30 MIN OF WAKEUP 11/19/2023 [facility] History of tobacco use VA-TOBACCO USE 30 YEARS OR MORE 11/19/2023 [facility] History of tobacco use ORYX ADMIT TOBACCO SCREEN YES 02/10/2023 [facility] History of tobacco use PR-TOBACCO USER EVERY DAY 09/02/2022 [facility] History of tobacco use PR-TOBACCO NEVER USED 01[facility] History of tobacco use PR-TOBACCO QUIT < 1 YEAR 04/13/2020 [facility] History of tobacco use PR-TOBACCO USE DIVE SUPERVISOR YES 02/23/2020 [facility] History of tobacco use LIFETIME NON-TOBACCO USER 11/27/2017 [facility] History of tobacco use QUIT TOBACCO USE 1-7 YEARS AGO 10/12/2016 [facility] History of tobacco use QUIT TOBACCO USE 1-7 YEARS AGO 09/25/2015 [facility] History of tobacco use QUIT TOBACCO USE IN PAST YEAR 10/05/2013 [facility] This section is an empty social history section. [facility] Plan of Care List of future care activities from [facility] facilities. Additional future care activities may be listed in the Assessment and Plan section. Date/Time Care Activity Care Activity Detail Facili ty 09/20/2024 AMBULATORY - MEDICINE [facility] 11/10/2024 [facility]UL[facility] - MEDICINE [facility] 07/22/2024 Consult Order COMMUNITY CARE-D ENTAL GENERAL Cons Grader Tender's Choice [facility] 07/22/2024 Consult Order COMMUNITY CARE-D ENTAL GENERAL Cons Grader Tender's Choice [facility] Advance Directives List of completed, amended, or rescinded Advance Directives on record at [facility] of Veterans Affairs facilities. An actual copy of the Directive is not included. Date Advance Directive Provider Source 03/06/2023 ADVANCE DIRECTIVE BEV PETTIT [facility] 04/20/2020 ADVANCE DIRECTIVE DISCUSSION ERUM MARTÍNEZ [facility] 02/24/2020 ADVANCE DIRECTIVE DISCUSSION POOL FUENTES [facility] 10/30/2016 ADVANCE DIRECTIVE KULDEEP FAM [facility]
--- OUTSIDE RECORDS SUMMARY | 2024-09-03 11:32 | XMS_ITS ---
Author Name [facility] [place] Address [address] [place] [address] Care Team Providers Care Ladle Handler Name Role Phone MARTIN BOWERS Primary Care Provider OPAL Mckay Primary Care Provider Unav ailable Selected Encounter This section includes the information on record at [place] for the Encounter. Date/Time Encounter Type Encounter Description Reason Pro vider Source Sep 26, 2023 02:30 PM Outpatient Encounter MENTAL HEALTH [facility] IHE Encounter Template Text not used by [place] Plan of Treatment: Future Appointments (+ 6 months) and Future Tests (+/- 45 days) The Plan of Treatment section includes future care activities for the patient from all [place] treatmentfacilities. This section includes future appointments and future orders which are active, pending or scheduled. Future Appointments This section includes appointments that were scheduled to occur 6 months from the date of the Encounter, up to a maximum of 20 appointments. The data comes from all [place] treatment facilities. Appointment Date/Time Appointment Type Appointme nt Facility Name Nov 19, 2023 09:30 AM [facility] [place] [facility] [place] [facility] Nov 19, 2023 10:00 AM [facility] Nov 19, 2023 02:00 PM AMBULATORY - MEDICINE [place] [facility] Dec 03, 2023 10:30 AM [facility] Social History: Smoking Status (Most current) and Tobacco Use (All prior to encounter date) This section includes the most current, and the historical, smoking and tobacco- related health factors from the [place] facility where the Encounter took place. Current Smoking Status This section includes the most current smoking, or tobacco-related health factor, from the [place] facility where the Encounter took place. Date/Time Current Smoking Status Comment Facil it February 10, 2023 01:00 PM ORYX ADMIT TOBACCO SCREEN [facility] Tobacco Use History This section includes a history of the smoking, or tobacco-related health factors, that were collected on or before the date of the Encounter. The data comes from the [place] facility where the Encounter took place. Date/Time Smoking Status/Tobac co Use Comment Facility February 10, 2023 01:00 PM ORYX ADMIT TOBACCO USE CIGS GR 5D [place] [facility] February 10, 2023 01:00 PM ORYX DAILY TOBACCO SERVER PROGRAMMER RECEIVED [facility] February 10, 2023 01:00 PM ORYX DAILY TOBACCO MEDS ORDERED [place] [facility] Sep 02, 2022 08:00 AM VA-TOBACCO USE 30 YEARS OR MORE [place] [facility] Sep 02, 2022 08:00 AM VA-TOBACCO USE ADVICE [facility] Sep 02, 2022 08:00 AM VA-TOBACCO USE SERVER PROGRAMMER YES [place] [facility] Sep 02, 2022 08:00 AM VA-TOBACCO USE MED NOTIFY PROVIDER [facility] Sep 02, 2022 08:00 AM VA-TOBACCO USE WI 30 MIN OF WAKEUP [place] [facility] Sep 02, 2022 08:00 AM VA-TOBACCO USER EVERY DAY [place] [facility] Oct 12, 2016 09:13 AM QUIT TOBACCO USE 1-7 YEARS AGO [place] [facility] Sep 25, 2015 10:24 AM QUIT TOBACCO USE 1-7 YEARS AGO [facility] Oct 05, 2013 03:03 PM QUIT TOBACCO USE 1-7 YEARS AGO PT HAS QUIT LES THAN A YEAR AGO. [facility] Oct 05, 2013 03:03 PM QUIT TOBACCO USE IN PAST YEAR [facility] Advance Directives: All historical and current Section Date Range: From patient's date of to the date document was created. This section includes ALL of a patient's completed or amended [place] Advance and Rescinded Directives. The entries below indicate that a directive exists for the patient, but an actual copy is not included with this document. The data comes from all [place] facilities. Date Advance Directives Provider Source Mar 06, 2023 ADVANCE DIRECTIVE BEV PETTIT [facility] Mar 06, 2023 ADVANCE DIRECTIVE DISCUSSION BEV PETTIT [facility] Apr 20, 2020 ADVANCE DIRECTIVE DISCUSSION ERUM MARTÍNEZ [facility] Feb 24, 2020 ADVANCE DIRECTIVE DISCUSSION POOL FUENTES [facility] Oct 30, 2016 ADVANCE DIRECTIVE KULDEEP FAM [facility] Encounter Notes: All associated encounter notes [...] onOct 3rd attempt: 4th attempt: /travon DAVE DELIVERY NURSE Signed: 10/22/2023 09:19 10/24/2023 ADDENDUM STATUS: COMPLETED RTC orders: Unable to contact patient: Attempts to contact: 1st attempt: Left voicemail 2nd attempt: Letter mailedDisposition onOct 3rd attempt: left vm 4th attempt: /travon DAVE DELIVERY NURSE Signed: 10/24/2023 09:31 10/27/2023 ADDENDUM STATUS: COMPLETED RTC orders: Unable to contact patient: Attempts to contact: 1st attempt: Left voicemail 2nd attempt: Letter mailedDisposition onFe 3rd attempt: left vm 4th attempt: Left vm /brown/ SHELLI DAVE DELIVERY NURSE Signed: 10/27/2023 13:25 SHELLI DAVE [facility] Sep 26, 2023 03:07 PM CLERICAL NOTE: LOCAL TITLE: APPOINTMENT NO SHOW STANDARD TITLE: CLERICAL NOTE DATE OF NOTE: SEP 26, 2023@15:07 ENTRY DATE: SEP 26, 2023@15:08:02 AUTHOR: LALO GARCIA EXP COSIGNER: URGENCY: STATUS: COMPLETED Patient Name: JEYSON SANCHEZ Patient SSN: [id number] Date and time of Appointment No show [...] Clinical Psychologist Signed: 09/26/2023 15:08 LALO GARCIA [facility]
--- OUTSIDE RECORDS SUMMARY | 2024-09-03 11:32 | XMS_ITS | Encounter Summary ---
Author Name [place] Address [address] [place] [address] Care Team Providers Care Skiving Machine Operator Name Role Phone MARTIN BOWERS Primary Care Provider OPLA Mckay Primary Care Provider Unav ailable Selected Encounter This section includes the information on record at [place] for the Encounter. Date/Time Encounter Type Encounter Description Reason Provider Source Nov 19, 2023 09:30 AM PSYTX W PT 30 MINUTES [facility] - IND ICD-10-CM F25.0 Schizoaffective disorder, bipolar type LALO GARCIA Azael Encounter Template Text not used by [place] Assessments - Encounter Diagnoses This section includes the primary and secondary diagnoses documented for the Encounter. Date/Time Primary/Secondary Diagnosis Diagnosis Name Provider Source Nov 19, 2023 10:44 AM PRIMARY Schizoaffective disorder, bipolar type LALO GARCIA [facility] Plan of Treatment: Future Appointments (+ 6 months) and Future Tests (+/- 45 days) The Plan of Treatment section includes future care activities for the patient from all [place] treatmentfacilities. This section includes future appointments and future orders which are active, pending or scheduled. Future Appointments This section includes appointments that were scheduled to occur 6 months from the date of the Encounter, up to a maximum of 20 appointments. The data comes from all [place] treatment facilities. Appointment Date/Time Appointment Type Appointme nt Facility Name Dec 03, 2023 10:30 AM AMBULATORY - [facility]CHIATRY [facility] Social History: Smoking Status (Most current) and Tobacco Use (All prior to encounter date) This section includes the most current, and the historical, smoking and tobacco- related health factors from the [place] facility where the Encounter took place. Current Smoking Status This section includes the most current smoking, or tobacco-related health factor, from the [place] facility where the Encounter took place. Date/Time Current Smoking Status Comment Facil it Nov 19, 2023 10:00 AM VA-TOBACCO USE [place] 30 MIN OF WAKEUP [facility] Tobacco Use History This section includes a history of the smoking, or tobacco-related health factors, that were collected on or before the date of the Encounter. The data comes from the [place] facility where the Encounter took place. Date/Time Smoking Status/Tobac co Use Comment Facility Nov 19, 2023 10:00 AM VA-TOBACCO USE ADVICE [facility] Nov 19, 2023 10:00 AM VA-TOBACCO USE ART THERAPY SPECIALIST NO [facility] Nov 19, 2023 10:00 AM VA-TOBACCO USE MED NO [facility] Nov 19, 2023 10:00 AM VA-TOBACCO USE WI 30 MIN OF WAKEUP [facility] Nov 19, 2023 10:00 AM VA-TOBACCO USER EVERY DAY [facility] [place] [facility] February 10, 2023 01:00 PM ORYX ADMIT TOBACCO SCREEN YES [facility] February 10, 2023 01:00 PM ORYX ADMIT TOBACCO USE CIGS GR 5D [facility] February 10, 2023 01:00 PM ORYX DAILY TOBACCO ART THERAPY SPECIALIST RECEIVED [facility] February 10, 2023 01:00 PM ORYX DAILY TOBACCO MEDS ORDERED [facility] Sep 02, 2022 08:00 AM VA-TOBACCO USE 30 YEARS OR MORE [facility] Sep 02, 2022 08:00 AM VA-TOBACCO USE ADVICE [facility] Sep 02, 2022 08:00 AM VA-TOBACCO USE ART THERAPY SPECIALIST YES [facility] Sep 02, 2022 08:00 AM VA-TOBACCO USE MED NOTIFY PROVIDER [facility] Sep 02, 2022 08:00 AM VA-TOBACCO USE WI 30 MIN OF WAKEUP [facility] Sep 02, 2022 08:00 AM VA-TOBACCO USER EVERY DAY [facility] Oct 12, 2016 09:13 AM QUIT TOBACCO USE 1-7 YEARS AGO [facility] Sep 25, 2015 10:24 AM QUIT TOBACCO USE 1-7 YEARS AGO [facility] Oct 05, 2013 03:03 PM QUIT TOBACCO USE 1-7 YEARS AGO PT HAS QUIT LES THAN A YEAR AGO. [facility] Oct 05, 2013 03:03 PM QUIT TOBACCO USE IN PAST YEAR [facility] Advance Directives: All historical and current Section Date Range: From patient's date of to the date document was created. This section includes ALL of a patient's completed or amended [place] Advance and Rescinded Directives. The entries below indicate that a directive exists for the patient, but an actual copy is not included with this document. The data comes from all [place] facilities. Date Advance Directives Provider Source Mar 06, 2023 ADVANCE DIRECTIVE BEV PETTIT [facility] Mar 06, 2023 ADVANCE DIRECTIVE DISCUSSION BEV PETTIT [facility] Apr 20, 2020 ADVANCE DIRECTIVE DISCUSSION ERUM MARTÍNEZ [facility] Feb 24, 2020 ADVANCE DIRECTIVE DISCUSSION POOL FUENTES [facility] Oct 30, 2016 ADVANCE DIRECTIVE KULDEEP FAM [facility] Encounter Notes: All associated encounter notes [...] Schizoaffective, Bipolar type Presenting Problem ( report): [facility] for follow-up on mood problems. Reports low motivation, somewhat apathetic. Has things it would be useful to get done (getting his drivers' license, applying for SSDI) but doesn't get around to it. Is staying sober (a condition for staying in his parents' home). 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 [place] a sense of purpose. He's glad to [...] an issue. He had run out of NoDaysOff recently after missing an jeri't with Dr. [...] Clinical Psychologist Signed: 11/19/2023 10:44 LALO GARCIA [facility]
--- OUTSIDE RECORDS SUMMARY | 2024-09-03 11:32 | XMS_ITS ---
Author Name [facility] Organization [place] Address [address] [place] [address] Care Team Providers Care Government Service Executive Name Role Phone MARTIN BOWERS Primary Care Provider OPAL Mckay Primary Care Provider Unav ailable Selected Encounter This section includes the information on record at [place] for the Encounter. Date/Time Encounter Type Encounter Description Reason Provider Source Sep 10, 2023 09:45 AM CASE MANAGEMENT [employer] [facility] ICD-10-CM Z65.3 Problems related to other legal circumstances MOIRA RODRIGUEZ Encounter Template Text not used by [place] Assessments - Encounter Diagnoses This section includes the primary and secondary diagnoses documented for the Encounter. Date/Time Primary/Secondary Diagnosis Diagnosis Name Provider Source Sep 10, 2023 04:00 PM PRIMARY Problems related to other legal circumstances MOIRA RODRIGUEZ [facility] Sep 10, 2023 04:00 PM SECONDARY Schizoaffective disorder, bipolar type MOIRA RODRIGUEZ [facility] Plan of Treatment: Future Appointments (+ 6 months) and Future Tests (+/- 45 days) The Plan of Treatment section includes future care activities for the patient from all [place] treatmentfacilities. This section includes future appointments and future orders which are active, pending or scheduled. Future Appointments This section includes appointments that were scheduled to occur 6 months from the date of the Encounter, up to a maximum of 20 appointments. The data comes from all [place] treatment facilities. Appointment Date/Time Appointment Type Appointme nt Facility Name Sep 11, 2023 11:15 AM AMBULATORY [facility]RY [place] [facility] Sep 26, 2023 02:30 PM AMBULATORY - PS[facility]CHIATRY [place] [facility] Nov 19, 2023 09:30 AM AMBULATORY - [facility]CHIATRY [facility] Nov 19, 2023 10:00 AM AMBULATORY - PS[place]CHIATRY [place] [facility] [place] [facility] Nov 19, 2023 02:00 PM AMBULATORY - MEDICINE [facility] N[facility]L TRN [facility] Dec 03, 2023 10:30 AM AMBULATORY - [facility]IATRY [facility] Social History: Smoking Status (Most current) and Tobacco Use (All prior to encounter date) This section includes the most current, and the historical, smoking and tobacco- related health factors from the [place] facility where the Encounter took place. Current Smoking Status This section includes the most current smoking, or tobacco-related health factor, from the [place] facility where the Encounter took place. Date/Time Current Smoking Status Comment Facil it February 10, 2023 01:00 PM ORYX ADMIT TOBACCO SCREEN YES [facility] Tobacco Use History This section includes a history of the smoking, or tobacco-related health factors, that were collected on or before the date of the Encounter. The data comes from the [place] facility where the Encounter took place. Date/Time Smoking Status/Tobac co Use Comment Facility February 10, 2023 01:00 PM ORYX ADMIT TOBACCO USE CIGS GR 5D [facility] February 10, 2023 01:00 PM ORYX DAILY TOBACCO STATION OPERATOR RECEIVED [facility] February 10, 2023 01:00 PM ORYX DAILY TOBACCO MEDS ORDERED [facility] Sep 02, 2022 08:00 AM VA-TOBACCO USE 30 YEARS OR MORE [facility] Sep 02, 2022 08:00 AM VA-TOBACCO USE ADVICE [facility] Sep 02, 2022 08:00 AM VA-TOBACCO USE STATION OPERATOR YES [facility] Sep 02, 2022 08:00 AM VA-TOBACCO USE MED NOTIFY PROVIDER [facility] Sep 02, 2022 08:00 AM VA-TOBACCO USE WI 30 MIN OF WAKEUP [facility] Sep 02, 2022 08:00 AM VA-TOBACCO USER EVERY DAY [facility] Oct 12, 2016 09:13 AM QUIT TOBACCO USE 1-7 YEARS AGO [facility] Sep 25, 2015 10:24 AM QUIT TOBACCO USE 1-7 YEARS AGO [facility] Oct 05, 2013 03:03 PM QUIT TOBACCO USE 1-7 YEARS AGO PT HAS QUIT LES THAN A YEAR AGO. [facility] Oct 05, 2013 03:03 PM QUIT TOBACCO USE IN PAST YEAR [facility] Advance Directives: All historical and current Section Date Range: From patient's date of to the date document was created. This section includes ALL of a patient's completed or amended [place] Advance and Rescinded Directives. The entries below indicate that a directive exists for the patient, but an actual copy is not included with this document. The data comes from all [place] facilities. Date Advance Directives Provider Source Mar 06, 2023 ADVANCE DIRECTIVE BEV PETTIT [facility] Mar 06, 2023 ADVANCE DIRECTIVE DISCUSSION BEV PETTIT [facility] Apr 20, 2020 ADVANCE DIRECTIVE DISCUSSION ERUM MARTÍNEZ [facility] Feb 24, 2020 ADVANCE DIRECTIVE DISCUSSION POOL FUENTES [facility] Oct 30, 2016 ADVANCE DIRECTIVE KULDEEP FAM [facility] Encounter Notes: All associated encounter notes This [...] Progress Note Encounter length: 15 min Location: [facility] Purpose of Visit/Content: observed in courtroom lobby and lead technical writer exchanged greeting having prior contact re: court matters this year. [place] had declined further [facility] c/m. His atty approached lead technical writer during recess to inquire about VA services. Brief meeting facilitated with as his atty is hoping to propose diversion for disposition of his current case. noted he was no longer at [place] (currently residing with his parents- prior restraining order has been eliminated), was not adhering to a psychotropic medication regimen and was currently sober. He asked what treatment he needed to which lead technical writer suggested resuming medication given his current diagnosis by scheduling a med management appt on his own. Should he desire additional treatment, he was encouraged to contact this lead technical writer for an assessment. [place] provided lead technical writer's number before encounter ended amicably. Primary Problems/DX: [...] Assessment: not assessed due to public setting [place] Goals: Intervention: psychosocial support Plan: await call from [place] NEXT COURT DATE: Oct in [place] /brown/ MOIRA RODRIGUEZ LCSW LICENSED CLINICAL DIRECTOR [employer] Signed: 09/10/2023 16:00 MOIRA RODRIGUEZ [place] [facility] [place] [facility]
--- OUTSIDE RECORDS SUMMARY | 2024-09-03 11:33 | XMS_ITS | Encounter Summary ---
Author Name [facility] [place] Organization [facility] [place] [facility] [place] Address [address] [place] [address] Care Team Providers Care Cq Developer Name Role Phone MARTIN BOWERS Primary Care Provider OPAL Mckay Primary Care Provider Unav ailable Selected Encounter This section includes the information on record at [place] for the Encounter. Date/Time Encounter Type Encounter Description Reason Pro vider Source Jan 02, 2024 09:31 AM Outpatient Encounter OPTOMETRY IHE Encounter Template Text not used by [place] Plan of Treatment: Future Appointments (+ 6 [...] 09, 2024 01:30 PM AMBULATORY - MEDICINE [place] [facility] [place] [facility] Jun 17, 2024 02:00 PM AMBULATORY - PS[place]CHIATRY [place] [facility] [place] [facility] Social History: Smoking Status (Most current) [...] place. Date/Time Current Smoking Status Comment Gino hernadezbrandi Nov 19, 2023 10:00 AM VA-TOBACCO USE [place] 30 MIN OF WAKEUP [place] [facility] Tobacco Use History This section includes a history of the smoking, or tobacco-related health factors, that were collected on or before the date of the Encounter. The data comes from the [place] facility where the Encounter took place. Date/Time Smoking Status/Tobac co Use Comment Facility Nov 19, 2023 10:00 AM VA-TOBACCO USE ADVICE [place] [facility] [facility] Nov 19, 2023 10:00 AM VA-TOBACCO USE STORE PROMOTER NO [place] [facility] [facility] Nov 19, 2023 10:00 AM VA-TOBACCO USE MED NO [place] [facility] [facility] Nov 19, 2023 10:00 AM VA-TOBACCO USE [place] 30 MIN OF WAKEUP [place] [facility] [place] [facility] Nov 19, 2023 10:00 AM VA-TOBACCO USER EVERY DAY [place] [facility] [place] [facility] February 10, 2023 01:00 PM ORYX ADMIT TOBACCO SCREEN YES [place] [facility] [facility] February 10, 2023 01:00 PM ORYX ADMIT TOBACCO USE CIGS GR 5D [place] [facility] [facility] February 10, 2023 01:00 PM ORYX DAILY TOBACCO STORE PROMOTER RECEIVED [place] [facility] [place] [facility] February 10, 2023 01:00 PM ORYX DAILY TOBACCO MEDS ORDERED [place] [facility] [place] [facility] Sep 02, 2022 08:00 AM VA-TOBACCO USE 30 YEARS OR MORE [place] [facility] [place] [facility] Sep 02, 2022 08:00 AM VA-TOBACCO USE ADVICE [place] [facility] [facility] Sep 02, 2022 08:00 AM VA-TOBACCO USE STORE PROMOTER YES [place] [facility] [place] [facility] Sep 02, 2022 08:00 AM VA-TOBACCO USE MED NOTIFY PROVIDER [facility] Sep 02, 2022 08:00 AM VA-TOBACCO USE [place] 30 MIN OF WAKEUP [facility] Sep 02, 2022 08:00 AM VA-TOBACCO USER EVERY DAY [facility] Oct 12, 2016 09:13 AM QUIT TOBACCO USE 1-7 YEARS AGO [facility] Sep 25, 2015 10:24 AM QUIT TOBACCO USE 1-7 YEARS AGO [facility] Oct 05, 2013 03:03 PM QUIT TOBACCO USE 1-7 YEARS AGO PT HAS QUIT LES THAN A YEAR AGO. [facility] Oct 05, 2013 03:03 PM QUIT TOBACCO USE IN PAST YEAR [facility] Advance Directives: All historical and current [...] 06, 2023 ADVANCE DIRECTIVE BEV PETTIT [facility] Mar 06, 2023 ADVANCE DIRECTIVE DISCUSSION BEV PETTIT [facility] Apr 20, 2020 ADVANCE DIRECTIVE DISCUSSION ERUM MARTÍNEZ [facility] Feb 24, 2020 ADVANCE DIRECTIVE DISCUSSION POOL FUENTES [facility] Oct 30, 2016 ADVANCE DIRECTIVE KULDEEP FAM [facility] Encounter Notes: All associated encounter notes [...] 3rd attempt: 4th attempt: /travon DEWEY ADVANCED MAINTENANCE TRUCK DRIVER Signed: 01/02/2024 09:32 01/29/2024 ADDENDUM STATUS: COMPLETED 3rd attempt:LVM 4th attempt:Letter /travon DEWEY ADVANCED MAINTENANCE TRUCK DRIVER Signed: 01/29/2024 10:53 03/04/2024 ADDENDUM STATUS: COMPLETED RTC pid 12/21/2024 dispositioned due to veterans failure to respond to all contact efforts per department standards. /travon DEWEY ADVANCED MAINTENANCE TRUCK DRIVER Signed: 03/04/2024 09:09 MARILIA DEWEY [place] [facility]
--- OUTSIDE RECORDS SUMMARY | 2024-09-03 11:33 | XMS_ITS ---
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 Date/Time Encounter Type Encounter Description Reason Pro vider Source Jan 02, 2024 09:32 AM Outpatient Encounter OPTOMETRY IHE Encounter Template Text not used by MD Plan of Treatment: Future Appointments (+ 6 months) and Future Tests (+/- 45 days) The Plan of Treatment section includes future care activities for the patient from all [place] treatmentfacilities. This section includes future appointments and future orders which are active, pending or scheduled. Future Appointments This section includes appointments that were scheduled to occur 6 months from the date of the Encounter, up to a maximum of 20 appointments. The data comes from all [place] treatment facilities. Appointment Date/Time Appointment Type Appointme nt Facility Name Jun 09, 2024 01:30 PM AMBULATORY - MEDICINE [place] [facility] [place] [facility] Jun 17, 2024 02:00 PM AMBULATORY - PSYCHIATRY [place] [facility] [place] [facility] Social History: Smoking Status (Most current) and Tobacco Use (All prior to encounter date) This section includes the most current, and the historical, smoking and tobacco- related health factors from the [place] facility where the Encounter took place. Current Smoking Status This section includes the most current smoking, or tobacco-related health factor, from the [place] facility where the Encounter took place. Date/Time Current Smoking Status Comment Gino hanson Nov 19, 2023 10:00 AM VA-TOBACCO USER EVERY DAY [facility] Tobacco Use History This section includes a history of the smoking, or tobacco-related health factors, that were collected on or before the date of the Encounter. The data comes from the [place] facility where the Encounter took place. 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 [place] [facility] [place] [facility] Nov 19, 2023 10:00 AM VA-TOBACCO USE MED NO [place] [facility] [place] [facility] Nov 19, 2023 10:00 AM VA-TOBACCO USE [place] 30 MIN OF WAKEUP [place] [facility] [place] [facility] Nov 19, 2023 10:00 AM VA-TOBACCO USER EVERY DAY [place] [facility] [place] [facility] February 10, 2023 01:00 PM ORYX ADMIT TOBACCO SCREEN YES [place] [facility] [place] [facility] February 10, 2023 01:00 PM ORYX ADMIT TOBACCO USE CIGS GR 5D [place] [facility] [place] [facility] February 10, 2023 01:00 PM ORYX DAILY TOBACCO ROLL COATING MACHINE OPERATOR RECEIVED MD [facility] [place] [facility] February 10, 2023 01:00 PM ORYX DAILY TOBACCO MEDS ORDERED [place] [facility] [place] [facility] Sep 02, 2022 08:00 AM VA-TOBACCO USE 30 YEARS OR MORE [place] [facility] [place] [facility] Sep 02, 2022 08:00 AM VA-TOBACCO USE ADVICE [place] [facility] [place] [facility] Sep 02, 2022 08:00 AM VA-TOBACCO USE 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 [facility] Oct 05, 2013 03:03 PM QUIT TOBACCO USE IN PAST YEAR [facility] Advance Directives: All historical and current Section Date Range: From patient's date of to the date document was created. This section includes ALL of a patient's completed or amended MD Advance and Rescinded Directives. The entries below indicate that a directive exists for the patient, but an actual copy is not included with this document. The data comes from all [place] facilities. Date Advance Directives Provider Source Mar 06, 2023 ADVANCE DIRECTIVE BEV PETTIT [facility] Mar 06, 2023 ADVANCE DIRECTIVE DISCUSSION BEV PETTIT [facility] Apr 20, 2020 ADVANCE DIRECTIVE DISCUSSION ERUM MARTÍNEZ [facility] Feb 24, 2020 ADVANCE DIRECTIVE DISCUSSION POOL FUENTES [facility] Oct 30, 2016 ADVANCE DIRECTIVE KULDEEP FAM [facility] Encounter Notes: All associated encounter notes This section contains the clinical notes associated to the Encounter. Date/Time Encounter Note(s) Provider Source Jan 02, 2024 09:32 AM LETTERS: LOCAL TITLE: PATIENT LETTER (B) STANDARD TITLE: LETTERS DATE OF NOTE: JAN 02, 2024@09:32 ENTRY DATE: JAN 02, 2024@09:32:33 AUTHOR: MARILIA DEWEY EXP COSIGNER: URGENCY: STATUS: COMPLETED [facility] Toll Free Number , ext [phone] JAN 02, 2024 JEYSON SANCHEZ [address] [place] [id number] Dear JEYSON SANCHEZ Thank you for choosing the Department of [facility] ([place]) [facility] as your primary choice for health care. As a partner in your health care, we are contacting you in writing since we have been unsuccessful in our attempts to reach you to date. We want to assure you we are doing everything possible to schedule Veterans for their MD medical care appointments. Our records indicate you are due for an appointment in optometry Thank you for choosing [facility] ([place]) [facility] as your primary choice for health care. As a partner in your health care, we are contacting you in writing since we have been unsuccessful in our attempts to reach you to date. We want to assure you we are doing everything possible to schedule Veterans for their [place] medical care appointments. If you would like to be seen, please contact [facility] at [phone] Ext. [phone] to schedule an appointment. Thank you for your service to our nation, and we look forward to hearing from you soon. Sincerely, [facility] [address] [facility] [address] [place] [address] [place] [address] ext. [phone] [facility] [address] [facility] [address] [place] [address] [place] [address] [phone] [facility] [address] [address] [place] [address] ext. [phone] [facility] [address] [place] [address] ext. [phone] MARILIA DEWEY [facility]
--- OUTSIDE RECORDS SUMMARY | 2024-09-03 11:33 | XMS_ITS ---
Author Name [facility] [place] Organization [place] Address [address] [place] [address] Care Team Providers Care Production Posting Clerk Name Role Phone MARTIN BOWERS Primary Care Provider POAL Mckay Primary Care Provider Unav ailable Selected Encounter This section includes the information on record at [place] for the Encounter. Date/Time Encounter Type Encounter Description Reason Provider Source Jun 09, 2024 01:30 PM OFFICE O/P EST MOD 30 MIN PRIMARY CARE/MEDICINE ICD-10-CM I10 Essential (primary) hypertension OPAL REEVES Azael Encounter Template Text not used by [place] Assessments - Encounter Diagnoses This section includes the primary and secondary diagnoses documented for the Encounter. Date/Time Primary/Secondary Diagnosis Diagnosis Name Provider Source Jun 09, 2024 05:06 PM PRIMARY Essential (primary) hypertension OPAL REEVES [place] [facility] [place] [facility] Jun 09, 2024 05:06 PM SECONDARY Bipolar disorder, unspecified OPAL REEVES [place] [facility] [place] [facility] Jun 09, 2024 05:06 PM SECONDARY Encounter for immunization CLARITA VALENCIA [place] [facility] [place] [facility] Jun 09, 2024 05:06 PM SECONDARY Low back pain, unspecified LEANDRO OPAL Levine [place] [facility] [place] [facility] Jun 09, 2024 05:06 PM SECONDARY Other asthma LEANDROOPAL [place] [facility] [place] [facility] Jun 09, 2024 05:06 PM SECONDARY Tinea unguium LEANDROOPAL [place] [facility] [place] [facility] Jun 09, 2024 05:06 PM SECONDARY Unilateral inguinal hernia, w/o obst or gangrene, recurrent LEANDROOPAL [place] [facility] [place] [facility] Plan of Treatment: Future Appointments (+ 6 months) and Future Tests (+/- 45 days) The Plan of Treatment section includes future care activities for the patient from all [place] [facility]. This section includes future appointments and future orders which are active, pending or scheduled. Future Appointments This section includes appointments that were scheduled to occur 6 months from the date of the Encounter, up to a maximum of 20 appointments. The data comes from all [place] treatment facilities. Appointment Date/Time Appointment Type Appointme nt Facility Name Jun 17, 2024 02:00 PM AMBULATORY - PSYCHIATRY [facility] [place] [facility] Jul 06, 2024 01:00 PM AMBULATORY - MEDICINE [place] [facility] [place] [facility] Jul 06, 2024 02:00 PM AMBULATORY - REHAB MEDICIN E [facility] [place] [facility] Jul 13, 2024 02:30 PM AMBULATORY - MEDICINE [facility] [place] [facility] Jul 14, 2024 10:30 AM AMBULATORY - MEDICINE [facility] [place] [facility] Jul 20, 2024 03:30 PM AMBULATORY - MEDICINE [facility] [place] [facility] Jul 26, 2024 01:30 PM AMBULATORY - MEDICINE [facility] [place] [facility] Jul 28, 2024 10:30 AM AMBULATORY - PSYCHIATRY [facility] [place] [facility] Aug 10, 2024 10:00 AM AMBULATORY - MEDICINE [facility] [place] [facility] Aug 10, 2024 03:00 PM AMBULATORY - MEDICINE [facility] [place] [facility] Sep 20, 2024 03:00 PM AMBULATORY - MEDICINE [facility] [place] [facility] Nov 10, 2024 10:00 AM AMBULATORY - MEDICINE [facility] Active, Pending, and Scheduled Orders This section includes a listing of several types of active, pending, and scheduled orders, including clinic medications orders, diagnostic test orders, procedure orders and consult orders; where the start date of the order is 45 days before the date of the Encounter or 45 days after the date of theEncounter. The data comes from all [place] treatment facilities. Test Date/Time Test Type Test Details Facility Name Jun 09, 2024 01:58 PM Consult Order COMMUNITY CARE-GEN SURGERY Cons Cell Support Operator's [facility] Jun 09, 2024 03:46 PM Consult Order PSYCHOTHER APY BHIP/NHM OUTPT Cons Cell Support Operator's [facility] Jul 14, 2024 10:55 AM Consult Order REHAB MEDI CINE/NHM OUTPT Cons Cell Support Operator's [facility] Jul 19, 2024 11:25 AM Consult Order COMMUNITY CARE-DENTAL GENERAL Cons Cell Support Operator's [facility] Jul 22, 2024 08:51 AM Consult Order COMMUNITY CARE-DENTAL GENERAL Cons Cell Support Operator's [facility] Jul 22, 2024 01:51 PM Consult Order COMMUNITY CARE-DENTAL GENERAL Cons Cell Support Operator's Choice [facility] Lab Results: +/- 30 days of the encounter This section includes the Chemistry and Hematology Lab Results on record with [place] for the patient. Radiology Reports and Pathology Reports are provided separately, in subsequent sections. Lab Results This section contains the Chemistry/Hematology Results that were resulted 30 days before or 30 daysafter the date of the Encounter. Date/Time Source Result Type Result - Unit Interpretation Reference Range Comment Jul 06, 2024 02:09 PM [facility] LIPID PANEL FASTING Specimen Type: SERUM No comment entered. Ordering Provider: PERRY LONG MD Report Released Date/Time: Jun 17, 2024 02:14 PM Reporting Lab: [address] [address] Performing Lab: [facility] [place] [facility] [address] [facility] [address] CHOLESTEROL 251 mg/dL H TRIGLYCERIDE 70 mg/dL 0-150 LDL calculated 171 mg/dL H 0-129 CHOL/HDL 3.8 HDL CHOLESTEROL 66 mg/dL H 40-60 Jul 06, 2024 02:09 PM [facility] HEMOGLOBIN A1C PANEL Specimen Type: [...] 01, 2024 03:56 PM Reporting Lab: [facility] [address] [address] Performing Lab: [facility] [address] [address] HEMOGLOBIN A1C 4.9 4.0-5.6 Jul 06, 2024 02:09 PM [facility] CALCIUM Specimen Type: SERUM No comment entered. Ordering Provider: Brian REEVES Report Released Date/Time: Jul 01, 2024 03:56 PM Reporting Lab: [facility] [address] [address] Performing Lab: [facility] [address] [address] CALCIUM 9.8 mg/dL 8.5-10.2 Jul 06, 2024 02:09 PM [facility] LIVER FUNCTION Specimen Type: SERUM No comment entered. Ordering Provider: Brian REEVES Report Released Date/Time: Jul 01, 2024 03:56 PM Reporting Lab: [facility] [address] [address] Performing Lab: [facility] [address] [address] PROTEIN,TOTAL 7.4 g/dL 6.0-8.3 ALBUMIN 4.4 g/dL 3.5-5.0 ALKALINE PHOSPHATASE 95 U/L 40-150 AST 21 U/L 5-34 ALT 34 U/L BILIRUBIN, TOTAL 0.4 mg/dL 0.2-1.2 Jul 06, 2024 02:09 PM [facility] BASIC METABOLIC PANEL (non-fasting) Specimen Type: SERUM No comment entered. Ordering Provider: Brian REEVES Report Released Date/Time: Jul 01, 2024 03:56 PM Reporting Lab: [address] [address] Performing Lab: [address] [address] UREA NITROGEN 19 mg/dL 7-25 GLUCOSE 90 mg/dL 65-100 SODIUM 139 mmol/L 135-145 POTASSIUM 4.8 mmol/L 3.5-5.0 CHLORIDE 104 mmol/L 100-110 CO2 26 meq/L 20-30 CREATININE, Serum 1.04 mg/dL 0.50-1.40 eGFR(CKD-EPI 2020) 87 mL/min >60 Jul 06, 2024 02:09 PM [facility] CBC AND DIFF (AUTO) Specimen Type: BLOOD No comment entered. Ordering Provider: Brian REEVES Report Released Date/Time: Jul 01, 2024 03:56 PM Reporting Lab: [address] [address] Performing Lab: [address] [address] WBC 8.69 10*3/uL 4.50-11.00 RBC 5.01 10*6/uL [...] Source Jun 09, 2024 01:43 PM 150/100 [facility] [place] [facility] Jun 09, 2024 01:32 PM 82 135/92 20 97 [facility] Immunizations: All administered on the encounter date This section contains immunizations associated to the Encounter. Immunization Series Date Issued Reaction Comments INFLUENZA, SPLIT VIRUS, TRIVALENT, PF Jun 09 024 Social History: Smoking Status (Most current) and Tobacco Use (All prior to encounter date) This section includes the most current, and the historical, smoking and tobacco- related health factors from the [place] facility where the Encounter took place. Current Smoking Status This section includes the most current smoking, or tobacco-related health factor, from the [place] facility where the Encounter took place. Date/Time Current Smoking Status Comment Gino hanson Nov 19, 2023 10:00 AM VA-TOBACCO USER EVERY DAY [facility] Tobacco Use History This section includes a history of the smoking, or tobacco-related health factors, that were collected on or before the date of the Encounter. The data comes from the [place] facility where the Encounter took place. 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 [place] [facility] [facility] Nov 19, 2023 10:00 AM VA-TOBACCO USE MED NO [place] [facility] Nov 19, 2023 10:00 AM VA-TOBACCO USE [place] 30 MIN OF WAKEUP [place] [facility] [facility] Nov 19, 2023 10:00 AM VA-TOBACCO USER EVERY DAY [place] [facility] [place] [facility] February 10, 2023 01:00 PM ORYX ADMIT TOBACCO SCREEN YES [place] [facility] [facility] February 10, 2023 01:00 PM ORYX ADMIT TOBACCO USE CIGS GR 5D [place] [facility] [place] [facility] February 10, 2023 01:00 PM ORYX DAILY TOBACCO GRINDER SET UP OPERATOR JIG RECEIVED [place] [facility] [place] [facility] February 10, 2023 01:00 PM ORYX DAILY TOBACCO MEDS ORDERED [place] [facility] [place] [facility] Sep 02, 2022 08:00 AM VA-TOBACCO USE 30 YEARS OR MORE [place] [facility] [place] [facility] Sep 02, 2022 08:00 AM VA-TOBACCO USE ADVICE [place] [facility] [place] [facility] Sep 02, 2022 08:00 AM VA-TOBACCO USE GRINDER SET UP OPERATOR JIG YES [place] [facility] [place] [facility] Sep 02, 2022 08:00 AM VA-TOBACCO USE MED NOTIFY PROVIDER [place] [facility] [place] [facility] Sep 02, 2022 08:00 AM VA-TOBACCO USE WI 30 MIN OF WAKEUP [place] [facility] [place] [facility] Sep 02, 2022 08:00 AM VA-TOBACCO USER EVERY DAY [place] [facility] [place] [facility] Oct 12, 2016 09:13 AM QUIT TOBACCO USE 1-7 YEARS AGO [place] [facility] [place] [facility] Sep 25, 2015 10:24 AM QUIT TOBACCO USE 1-7 YEARS AGO [facility] [place] [facility] Oct 05, 2013 03:03 PM QUIT TOBACCO USE 1-7 YEARS AGO PT HAS QUIT LES THAN A YEAR AGO. [facility] Oct 05, 2013 03:03 PM QUIT TOBACCO USE IN PAST YEAR [facility] Advance Directives: All historical and current Section Date Range: From patient's date of to the date document was created. This section includes ALL of a patient's completed or amended [place] Advance and Rescinded Directives. The entries below indicate that a directive exists for the patient, but an actual copy is not included with this document. The data comes from all [place] facilities. Date Advance Directives Provider Source Mar 06, 2023 ADVANCE DIRECTIVE BEV PETTIT [facility] Mar 06, 2023 ADVANCE DIRECTIVE DISCUSSION BEV PETTIT [facility] Apr 20, 2020 ADVANCE DIRECTIVE DISCUSSION ERUM [facility]ÍNEZ [facility] Feb 24, 2020 ADVANCE DIRECTIVE DISCUSSION POOL FUENTES [facility] Oct 30, 2016 ADVANCE DIRECTIVE KULDEEP FAM [facility] Encounter Notes: All associated encounter notes [...] PF Date Administered: Jun 09, 2024 13:30 Tube Heater: IKO System Lot: [id number] Exp Date: Mar 21, 2025 [facility] [place]NOTE 2]: [id number] Admin Route/Site: INTRAMUSCULAR/LEFT DELTOID Dosage: 0.5mL Vaccine Information Statement(s): INFLUENZA(FLU) VACC(INACTIVATED OR RECOMBINANT)VIS Apr 27, 2021 (GABONESE) Order By: Policy Administered By: Clarita Valencia [...] Staff Nurse Signed: 06/09/2024 13:45 CLARITA VALENCIA [facility] [place] [place] [facility] Jun 09, 2024 01:41 PM PHYSICIAN NOTE: LOCAL TITLE: NOTE STANDARD TITLE: PHYSICIAN NOTE DATE OF NOTE: JUN 09, 2024@13:41 ENTRY DATE: JUN 09, 2024@13:41:47 AUTHOR: LAUREN REEVES EXP COSIGNER: URGENCY: STATUS: COMPLETED HISTORY OF PRESENT ILLNESS: JEYSON SANCHEZ, is a 49 yo WHITE MALE who presents at the [place] [facility]. multiple problems HPI. vet seen by this PCP one year ago and he reports that he now lives with parents in [place]. he is hoping to avoid any senior living time so he needs to comply w/ probation plan/mental health staff helping vet access services at [place] for bipolar illness. He has hx of [...] PPD 12. Left knee pain (SNOMED CT [id number]) 13. Asthma (SNOMED CT [id number]) HISTORY: PERIOD OF SERVICE - [facility] FROM January TO Apr COMBAT SERVICE INDICATED: [...] Mar 06 Homelessness/Food Insecurity Screen Sep 02 Atyp Antipsych Metabol Syndrome DUE NOW Avg [...] MENTAL HEALTH CLINIC REGISTERED NURSE AMELIA REEVES [place] [facility]
--- OUTSIDE RECORDS SUMMARY | 2024-09-03 11:33 | XMS_ITS ---
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 Date/Time Encounter Type Encounter Description Reason Provider Source Nov 19, 2023 10:00 AM OFFICE O/P EST LOW 20 MIN [facility] - IND ICD-10-CM F25.0 Schizoaffective disorder, bipolar type DERECK LONG MD [facility] Encounter Template Text not used by [place] Assessments - Encounter Diagnoses This section includes the primary and secondary diagnoses documented for the Encounter. Date/Time Primary/Secondary Diagnosis Diagnosis Name Provider Source Nov 19, 2023 10:23 AM PRIMARY Schizoaffective disorder, bipolar type DERECK LONG MD [facility] Nov 19, 2023 10:23 AM SECONDARY Alcohol dependence with alcohol-induced mood disorder DERECK LONG MD [facility] Plan of Treatment: Future Appointments (+ 6 months) and Future Tests (+/- 45 days) The Plan of Treatment section includes future care activities for the patient from all [place] [facility] This section includes future appointments and future [...] 03, 2023 10:30 AM AMBULATORY - PSYCHIATRY [facility] Social History: Smoking Status (Most current) [...] took place. Date/Time Current Smoking Status Comment [facility] Nov 19, 2023 10:00 AM VA-TOBACCO USER EVERY DAY [facility] Tobacco Use History This section includes a history of the smoking, or tobacco-related health factors, that were collected on or before the date of the Encounter. The data comes from the [place] facility where the Encounter took place. Date/Time Smoking Status/Tobac co Use Comment Facility Nov 19, 2023 10:00 AM VA-TOBACCO USE [facility]ICE [facility] Nov 19, 2023 10:00 AM VA-TOBACCO USE AQUACULTURIST NO [facility] Nov 19, 2023 10:00 AM VA-TOBACCO USE MED NO [place] [facility] [place] [facility] Nov 19, 2023 10:00 AM VA-TOBACCO USE [place] 30 MIN OF WAKEUP [facility] Nov 19, 2023 10:00 AM VA-TOBACCO USER EVERY DAY [place] [facility] [place] [facility] February 10, 2023 01:00 PM ORYX ADMIT TOBACCO SCREEN YES [place] [facility] [place] [facility] February 10, 2023 01:00 PM ORYX ADMIT TOBACCO USE CIGS GR 5D [place] [facility] February 10, 2023 01:00 PM ORYX DAILY TOBACCO AQUACULTURIST RECEIVED [facility] February 10, 2023 01:00 PM ORYX DAILY TOBACCO MEDS ORDERED [facility] Sep 02, 2022 08:00 AM VA-TOBACCO USE [address] [facility] Sep 02, 2022 08:00 AM VA-TOBACCO USE AD[facility]ICE [facility] Sep 02, 2022 08:00 AM VA-TOBACCO USE AQUACULTURIST YES [facility] Sep 02, 2022 08:00 AM VA-TOBACCO USE MED NOTIFY PROVIDER [facility] Sep 02, 2022 08:00 AM VA-TOBACCO [place] [address] [facility] Sep 02, 2022 08:00 AM VA-TOBACCO USER EVERY [facility] Oct 12, 2016 09:13 AM QUIT TOBACCO USE 1-[address] [facility] Sep 25, 2015 10:24 AM QUIT TOBACCO USE 1-[address] [facility] Oct 05, 2013 03:03 PM QUIT TOBACCO USE 1-7 YEARS AGO PT HAS QUIT LES THAN A YEAR AGO. [facility] Oct 05, 2013 03:03 PM QUIT TOBACCO USE IN PAST YEAR [facility] Advance Directives: All historical and current [...] Mar 06, 2023 ADVANCE DIRECTIVE BEV PETTIT [facility] Mar 06, 2023 ADVANCE DIRECTIVE DISCUSSION BEV PETTIT [facility] Apr 20, 2020 ADVANCE DIRECTIVE DISCUSSION ERUM MARTÍNEZ [facility] Feb 24, 2020 ADVANCE DIRECTIVE DISCUSSION POOL FUENTES [facility] Oct 30, 2016 ADVANCE DIRECTIVE KULDEEP FAM [facility] Encounter Notes: All associated encounter [...] ONE TABLET BY MOUTH AT BEDTIME JEYSON SANCHEZ is a [place], 48 yo, male who [...] actually gained some weight since I left [place]. No mood swings. Paras carries a [...] to protect and improve your health and [place] has the resources to support you. - [...] behavioral changes to help you quit. - [place] has a number of behavioral counseling options to help you with quitting, including: * Provide information about the facility smoking or tobacco use treatment options or clinics * [place]'s national quitline, 6-841-VIGW-VET, with counseling available Friday-Friday The patient was [...] PSYCHIATRIST Signed: 11/19/2023 10:24 JAMES LONG MD [facility]
--- OUTSIDE RECORDS SUMMARY | 2024-09-03 11:33 | XMS_ITS | Encounter Summary ---
Author Name [facility] [place] Address [address] [place] [address] Care Team Providers Care Salesperson Used Cars Name Role Phone ELISSA MARTIN Primary Care [...] with alcohol-induced mood disorder JODIE SCOTT [facility] Encounter Template Text not used by [place] Assessments - Encounter Diagnoses This section includes the primary and secondary diagnoses documented for the Encounter. Date/Time Primary/Secondary Diagnosis Diagnosis Name Provider Source Apr 09, 2024 08:49 AM PRIMARY Alcohol dependence with alcohol-induced mood disorder JODIE SCOTT [facility] Plan of Treatment: Future Appointments [...] 09, 2024 01:30 PM AMBULATORY - MEDICINE [place] [facility] [place] [facility] Jun 17, 2024 02:00 PM AMBULATORY - PSYCHIATRY [place] [facility] [place] [facility] Jul 06, 2024 01:00 PM AMBULATORY - MEDICINE [place] [facility] [place] [facility] Jul 06, 2024 02:00 PM AMBULATORY - REHAB MEDICIN E [facility] [place] [facility] Jul 13, 2024 02:30 PM AMBULATORY - MEDICINE [place] [facility] [place] [facility] Jul 14, 2024 10:30 AM AMBULATORY - MEDICINE [place] [facility] [place] [facility] Jul 20, 2024 03:30 PM AMBULATORY - MEDICINE [place] [facility] [place] [facility] Jul 26, 2024 01:30 PM AMBULATORY - MEDICINE [place] [facility] [place] [facility] Jul 28, 2024 10:30 AM AMBULATORY - PSYCHIATRY [place] [facility] [place] [facility] Aug 10, 2024 10:00 AM AMBULATORY - MEDICINE [place] [facility] [place] [facility] Aug 10, 2024 03:00 PM AMBULATORY - MEDICINE [place] [facility] [place] [facility] Sep 20, 2024 03:00 PM AMBULATORY - MEDICINE [place] [facility] [place] [facility] Social History: Smoking Status (Most current) [...] USE WI 30 MIN OF WAKEUP [place] [facility] [place] [facility] Tobacco Use History This section includes a history of the smoking, or tobacco-related health factors, that were collected on or before the date of the Encounter. The data comes from the [place] facility where the Encounter took place. Date/Time Smoking Status/Tobac co Use Comment Facility Nov 19, 2023 10:00 AM VA-TOBACCO USE ADVICE [place] [facility] [place] [facility] Nov 19, 2023 10:00 AM VA-TOBACCO USE COAT JOINER NO [place] [facility] [place] [facility] Nov 19, 2023 10:00 AM VA-TOBACCO USE MED NO [place] [facility] [place] [facility] Nov 19, 2023 10:00 AM VA-TOBACCO USE WI 30 MIN OF WAKEUP [place] [facility] [place] [facility] Nov 19, 2023 10:00 AM VA-TOBACCO USER EVERY DAY [place] [facility] [place] [facility] February 10, 2023 01:00 PM ORYX ADMIT TOBACCO SCREEN YES [place] [facility] [place] [facility] February 10, 2023 01:00 PM ORYX ADMIT TOBACCO USE CIGS GR 5D [place] [facility] [place] [facility] February 10, 2023 01:00 PM ORYX DAILY TOBACCO COAT JOINER RECEIVED [place] [facility] [place] [facility] February 10, 2023 01:00 PM ORYX DAILY TOBACCO MEDS ORDERED [place] [facility] [place] [facility] Sep 02, 2022 08:00 AM VA-TOBACCO USE 30 YEARS OR MORE [place] [facility] [place] [facility] Sep 02, 2022 08:00 AM VA-TOBACCO USE ADVICE [place] [facility] [place] [facility] Sep 02, 2022 08:00 AM VA-TOBACCO USE COAT JOINER YES [place] [facility] [place] [facility] Sep 02, 2022 08:00 AM VA-TOBACCO USE MED NOTIFY PROVIDER [place] [facility] [place] [facility] Sep 02, 2022 08:00 AM VA-TOBACCO USE WI 30 MIN OF WAKEUP [place] [facility] [place] [facility] Sep 02, 2022 08:00 AM VA-TOBACCO USER EVERY DAY [place] [facility] [place] [facility] Oct 12, 2016 09:13 AM QUIT TOBACCO USE 1-7 YEARS AGO [place] [facility] [place] [facility] Sep 25, 2015 10:24 AM QUIT TOBACCO USE 1-7 YEARS AGO [place] [facility] [place] [facility] Oct 05, 2013 03:03 PM QUIT TOBACCO USE 1-7 YEARS AGO PT HAS QUIT LES THAN A YEAR AGO. [facility] Oct 05, 2013 03:03 PM QUIT TOBACCO USE IN PAST YEAR [facility] Advance Directives: All historical and [...] Mar 06, 2023 ADVANCE DIRECTIVE BEV PETTIT [facility] Mar 06, 2023 ADVANCE DIRECTIVE DISCUSSION BEV PETTIT [facility] Apr 20, 2020 ADVANCE DIRECTIVE DISCUSSION ERUM MARTÍNEZ [facility] Feb 24, 2020 ADVANCE DIRECTIVE DISCUSSION POOL FUENTES [facility] Oct 30, 2016 ADVANCE DIRECTIVE KULDEEP FAM [facility] Encounter Notes: All associated encounter [...] name, full SSN and ) self-presented to [facility] to request a letter for probation stating that the Psychologist he was seeing retired recently (Dr. Ernestine Mcgrath). He is also considering reengaging in MH services (MH meds and possibly individual therapy). B/A: calm, cooperative and appropriate. Hx TBI so can become overwhelmed/confused somewhat easily if presented with too much info at once. Denies SI/HI and denies active alcohol use. appears to have established MH services: Uniform MH Intake completed 04/21/23; most recent visit with Psychiatrist, Dr. Villanueva, on 11/19/23; and hx of seeing both Dr. Ernestine Mcgrath (via [facility]) and JON Santos via [facility] for indivudal therapy services intermittently. RN explained that should he wish to restart MH medications, he can be scheduled for next avail appt with Dr. Villanueva. Should he wish to reengage in [facility] Individual Therapy, RN can reach out to J[facility] Santos to see if this is still an option (hx alcohol dependence). R/P: RN wrote [place] letter as requested (addressed to him to give to Volunteer Services Specialist Shen Office Cell ). RN also left Volunteer Services Specialist Shen schwarz per request (but she is out of office until 04/14/24). C: Kay (as FYI) C: Danielle (as FYI) /brown/ JAYLA SCOTT MSN, RN [facility] REGISTERED NURSE Signed: 04/09/2024 08:49 Receipt Acknowledged By: 04/13/2024 09:08 /brown/ MARY SANTOS [facility] Viscera Washer 04/09/2024 10:18 /brown/ JAMES VILLANUEVA JR, MD STAFF PSYCHIATRIST JAYLA SCOTT [facility]
--- OUTSIDE RECORDS SUMMARY | 2024-09-03 11:33 | XMS_ITS | Encounter Summary ---
Author Name [facility] [place] Organization [place] Address [address] [place] [address] Care Team Providers Care Hotel General Manager Name Role Phone MARTIN BOWERS Primary Care Provider OPAL Mckay Primary Care Provider Unav ailable Selected Encounter This section includes the information on record at [place] for the Encounter. Date/Time Encounter Type Encounter Description Reason Pro vider Source Nov 19, 2023 02:00 PM Outpatient Encounter PRIMARY CARE/MEDICINE IHE Encounter Template Text not used by [place] Plan of Treatment: Future Appointments (+ 6 months) and Future Tests (+/- 45 days) The Plan of Treatment section includes future care activities for the patient from all [place] treatmentfacilities. This section includes future appointments and future orders which are active, pending or scheduled. Future Appointments This section includes appointments that were scheduled to occur 6 months from the date of the Encounter, up to a maximum of 20 appointments. The data comes from all [place] treatment facilities. Appointment Date/Time Appointment Type Appointme nt Facility Name Dec 03, 2023 10:30 AM [facility] Social History: Smoking Status (Most current) and Tobacco Use (All prior to encounter date) This section includes the most current, and the historical, smoking and tobacco- related health factors from the [place] facility where the Encounter took place. Current Smoking Status This section includes the most current smoking, or tobacco-related health factor, from the [place] facility where the Encounter took place. Date/Time Current Smoking Status Comment Gino hanson Nov 19, 2023 10:00 AM VA-TOBACCO USER EVERY DAY [facility] Tobacco Use History This section includes a history of the smoking, or tobacco-related health factors, that were collected on or before the date of the Encounter. The data comes from the [place] facility where the Encounter took place. Date/Time Smoking Status/Tobac co Use Comment Facility Nov 19, 2023 10:00 AM VA-TOBACCO USE ADVICE [place] [facility] Nov 19, 2023 10:00 AM VA-TOBACCO USE OCCUP THER NO [place] [facility] Nov 19, 2023 10:00 AM VA-TOBACCO USE MED NO [place] [facility] Nov 19, 2023 10:00 AM VA-TOBACCO USE [place] 30 MIN OF WAKEUP [place] [facility] [place] [facility] Nov 19, 2023 10:00 AM VA-TOBACCO USER EVERY DAY [place] [facility] [place] [facility] February 10, 2023 01:00 PM ORYX ADMIT TOBACCO SCREEN YES [place] [facility] [place] [facility] February 10, 2023 01:00 PM ORYX ADMIT TOBACCO USE CIGS GR 5D [place] [facility] [facility] February 10, 2023 01:00 PM ORYX DAILY TOBACCO [facility]CCUP [facility] [place] [facility] February 10, 2023 01:00 PM ORYX DAILY TOBACCO MEDS ORDERED [place] [facility] [place] [facility] Sep 02, 2022 08:00 AM VA-TOBACCO USE 30 YEARS OR MORE [place] [facility] [facility] Sep 02, 2022 08:00 AM VA-TOBACCO USE ADVICE [place] [facility] [facility] Sep 02, 2022 08:00 AM VA-TOBACCO USE OCCUP THER YES [place] [facility] [facility] Sep 02, 2022 08:00 AM VA-TOBACCO USE MED NOTIFY PROVIDER [place] [facility] Sep 02, 2022 08:00 AM VA-TOBACCO USE WI 30 MIN OF WAKEUP [facility] Sep 02, 2022 08:00 AM VA-TOBACCO USER EVERY DAY [facility] Oct 12, 2016 09:13 AM QUIT TOBACCO USE 1-7 YEARS AGO [facility] Sep 25, 2015 10:24 AM QUIT TOBACCO USE 1-7 YEARS AGO [facility] Oct 05, 2013 03:03 PM QUIT TOBACCO USE 1-7 YEARS AGO PT HAS QUIT LES THAN A YEAR AGO. [facility] Oct 05, 2013 03:03 PM QUIT TOBACCO USE IN PAST YEAR [facility] Advance Directives: All historical and current Section Date Range: From patient's date of to the date document was created. This section includes ALL of a patient's completed or amended [place] Advance and Rescinded Directives. The entries below indicate that a directive exists for the patient, but an actual copy is not included with this document. The data comes from all [place] facilities. Date Advance Directives Provider Source Mar 06, 2023 ADVANCE DIRECTIVE BEV PETTIT [facility] Mar 06, 2023 ADVANCE DIRECTIVE DISCUSSION BEV PETTIT [facility] Apr 20, 2020 ADVANCE DIRECTIVE DISCUSSION ERUM MARTÍNEZ [facility] Feb 24, 2020 ADVANCE DIRECTIVE DISCUSSION POOL FUENTES [facility] Oct 30, 2016 ADVANCE DIRECTIVE KULDEEP FAM [facility] Encounter Notes: All associated encounter notes This section contains the clinical notes associated to the Encounter. Date/Time Encounter Note(s) Provider Source Nov 19, 2023 02:24 PM CLERICAL NOTE: LOCAL TITLE: APPOINTMENT NO SHOW STANDARD TITLE: CLERICAL NOTE DATE OF NOTE: NOV 19, 2023@14:24 ENTRY DATE: NOV 19, 2023@14:24:19 AUTHOR: QUINN WONG COSIGNER: URGENCY: STATUS: COMPLETED Patient Name: JEYSON SANCHEZ Patient SSN: [id number] Date and time of Appointment No show [...] 01/01/2024 14:00 CWM/SIRISHA/ANNELIESE/ETHAN /brown/ QUINN WONG Advanced Real Estate Professional Signed: 11/19/2023 14:25 QUINN WONG [place] [facility]
--- OUTSIDE RECORDS SUMMARY | 2024-09-03 11:33 | XMS_ITS | Encounter Summary ---
Author Name [facility] [place] Organization [place] Address [address] [place] [address] Care Team Providers Care Examination Proctor Name Role Phone MARTIN BOWERS Primary Care Provider OPAL Mckay Primary Care Provider Unav ailable Selected Encounter This section includes the information on record at [place] for the Encounter. Date/Time Encounter Type Encounter Description Reason Pro vider Source Dec 03, 2023 10:30 AM Outpatient Encounter [facility]NOTE 3] IHE Encounter Template Text not used by [place] Social History: Smoking Status (Most current) and Tobacco Use (All prior to encounter date) This section includes the most current, and the historical, smoking and tobacco- related health factors from the [place] facility where the Encounter took place. Current Smoking Status This section includes the most current smoking, or tobacco-related health factor, from the [place] facility where the Encounter took place. Date/Time Current Smoking Status Comment Gino hanson Nov 19, 2023 10:00 AM VA-TOBACCO USE [place] 30 MIN OF WAKEUP [facility] Tobacco Use History This section includes a history of the smoking, or tobacco-related health factors, that were collected on or before the date of the Encounter. The data comes from the [place] facility where the Encounter took place. Date/Time Smoking Status/Tobac co Use Comment Facility Nov 19, 2023 10:00 AM VA-TOBACCO USE ADVICE [place] [facility] [place] [facility] Nov 19, 2023 10:00 AM VA-TOBACCO USE TRANSFER AGENT NO [place] [facility] [place] [facility] Nov 19, 2023 10:00 AM VA-TOBACCO USE MED NO [place] [facility] [place] [facility] Nov 19, 2023 10:00 AM VA-TOBACCO USE WI 30 MIN OF WAKEUP [place] [facility] [facility] Nov 19, 2023 10:00 AM VA-TOBACCO USER EVERY DAY [place] [facility] [facility] February 10, 2023 01:00 PM ORYX ADMIT TOBACCO SCREEN YES [place] [facility] [facility] February 10, 2023 01:00 PM ORYX ADMIT TOBACCO USE CIGS GR 5D [place] [facility] [place] [facility] February 10, 2023 01:00 PM ORYX DAILY TOBACCO TRANSFER AGENT RECEIVED [place] [facility] [place] [facility] February 10, 2023 01:00 PM ORYX DAILY TOBACCO MEDS ORDERED [place] [facility] [facility] Sep 02, 2022 08:00 AM VA-TOBACCO USE 30 YEARS OR MORE [place] [facility] [facility] Sep 02, 2022 08:00 AM VA-TOBACCO USE ADVICE [place] [facility] [place] [facility] Sep 02, 2022 08:00 AM VA-TOBACCO USE TRANSFER AGENT YES [place] [facility] [place] [facility] Sep 02, 2022 08:00 AM VA-TOBACCO USE MED NOTIFY PROVIDER [place] [facility] [facility] Sep 02, 2022 08:00 AM VA-TOBACCO USE WI 30 MIN OF WAKEUP [place] [facility] [facility] Sep 02, 2022 08:00 AM VA-TOBACCO USER EVERY DAY [place] [facility] [place] [facility] Oct 12, 2016 09:13 AM QUIT TOBACCO USE 1-7 YEARS AGO [place] [facility] [facility] Sep 25, 2015 10:24 AM QUIT TOBACCO USE 1-7 YEARS AGO [place] [facility] [place] [facility] Oct 05, 2013 03:03 PM QUIT TOBACCO USE 1-7 YEARS AGO PT HAS QUIT LES THAN A YEAR AGO. [facility] Oct 05, 2013 03:03 PM QUIT TOBACCO USE IN PAST YEAR [facility] Advance Directives: All historical and current Section Date Range: From patient's date of to the date document was created. This section includes ALL of a patient's completed or amended [place] Advance and Rescinded Directives. The entries below indicate that a directive exists for the patient, but an actual copy is not included with this document. The data comes from all [place] facilities. Date Advance Directives Provider Source Mar 06, 2023 ADVANCE DIRECTIVE BEV PETTIT [facility] Mar 06, 2023 ADVANCE DIRECTIVE DISCUSSION BEV PETTIT [facility] Apr 20, 2020 ADVANCE DIRECTIVE DISCUSSION ERUM MARTÍNEZ [facility] Feb 24, 2020 ADVANCE DIRECTIVE DISCUSSION POOL FUENTES [facility] Oct 30, 2016 ADVANCE DIRECTIVE KULDEEP FAM [facility] Encounter Notes: All associated encounter notes [...] left vm 4th attempt: /brown/ SHELLI DAVE SIDE PANEL PADDER Signed: 12/08/2023 11:47 12/10/2023 ADDENDUM STATUS: COMPLETED RTC orders: Unable to contact patient: Attempts to contact: 1st attempt: Left voicemail 2nd attempt: Letter mailedDisposition onNov 3rd attempt: left vm 4th attempt: Left vm /brown/ SHELLI DAVE SIDE PANEL PADDER Signed: 12/10/2023 14:32 [facility]
--- OUTSIDE RECORDS SUMMARY | 2024-09-03 11:34 | XMS_ITS ---
Author Name [facility] [place] Organization [place] Address [address] [place] [address] Care Team Providers Care Creative Services Producer Name Role Phone MARTIN BOWERS Primary Care [...] 06, 2024 01:00 PM AMBULATORY - [facility] Jul 06, 2024 02:00 PM [facility] [place] [facility] Jul 13, 2024 02:30 PM AM[facility]ULATORY [place] MEDICINE [place] [facility] [facility] Jul 14, 2024 10:30 AM AMBULATORY - MEDICINE [facility] [place] [facility] Jul 20, 2024 03:30 PM AMBULATORY - MEDICINE [facility] [facility] Jul 26, 2024 01:30 PM AMBULATORY - MEDICINE [facility] [facility] Jul 28, 2024 10:30 AM AMBULATORY - PSYCHIATRY [facility] [place] [facility] Aug 10, 2024 10:00 AM AMBULATORY - MEDICINE [facility] [place] [facility] Aug 10, 2024 03:00 PM AMBULATORY - MEDICINE [facility] [place] [facility] Sep 20, 2024 03:00 PM AMBULATORY - MEDICINE [facility] [place] [facility] Nov 10, 2024 10:00 AM AMBULATORY - MEDICINE [facility] [place] [facility] Active, Pending, and Scheduled Orders [...] PM Consult Order COMMUNITY CARE-GEN SURGERY Cons [place] Pointer's Choice [facility] [place] [facility] Jun 09, 2024 03:46 PM Consult Order PSYCHOTHER APY BHIP/NHM OUTPT Cons [place] [facility] Choice [facility] [place] [facility] Jul 14, 2024 10:55 AM Consult Order REHAB MEDI CINE/NHM OUTPT Cons [place] [facility] [place] [facility] Jul 19, 2024 11:25 AM Consult Order COMMUNITY CARE-DENTAL GENERAL Cons [place] [facility] [place] [facility] Jul 22, 2024 08:51 AM Consult Order COMMUNITY CARE-DENTAL GENERAL Cons [place] [facility] [place] [facility] Jul 22, 2024 01:51 PM Consult Order COMMUNITY CARE-DENTAL GENERAL Cons [place] Pointer[facility] Choice [facility] [place] [facility] Lab Results: +/- 30 days [...] Comment Jul 06, 2024 02:09 PM [facility] LIPID PANEL FASTING Specimen Type: SERUM No comment entered. Ordering Provider: PERRY LONG MD Report Released Date/Time: Jun 17, 2024 02:14 PM Reporting Lab: [address] [address] Performing Lab: [address] [address] CHOLESTEROL 251 mg/dL H TRIGLYCERIDE 70 mg/dL 0-150 LDL calculated 171 mg/dL H 0-129 CHOL/HDL 3.8 HDL CHOLESTEROL 66 mg/dL H 40-60 Jul 06, 2024 02:09 PM [facility] CALCIUM Specimen Type: SERUM No comment entered. Ordering Provider: Brian REEVES Report Released Date/Time: Jul 01, 2024 03:56 PM Reporting Lab: [address] [address] Performing Lab: [address] [address] CALCIUM 9.8 mg/dL 8.5-10.2 Jul 06, 2024 02:09 PM [facility] HEMOGLOBIN A1C PANEL Specimen Type: BLOOD Comment: [...] 01, 2024 03:56 PM Reporting Lab: [facility] [address] [address] Performing Lab: [address] [address] HEMOGLOBIN A1C 4.9 4.0-5.6 Jul 06, 2024 02:09 PM [facility] LIVER FUNCTION Specimen Type: SERUM No comment entered. Ordering Provider: Brian REEVES Report Released Date/Time: Jul 01, 2024 03:56 PM Reporting Lab: [address] [address] Performing Lab: [address] [address] PROTEIN,TOTAL 7.4 g/dL 6.0-8.3 ALBUMIN 4.4 g/dL 3.5-5.0 ALKALINE PHOSPHATASE 95 U/L 40-150 AST 21 U/L 5-34 ALT 34 U/L BILIRUBIN, TOTAL 0.4 mg/dL 0.2-1.2 Jul 06, 2024 02:09 PM [facility] BASIC METABOLIC PANEL (non-fasting) Specimen Type: SERUM No comment entered. Ordering Provider: Brian REEVES Report Released Date/Time: Jul 01, 2024 03:56 PM Reporting Lab: [address] [address] Performing Lab: [address] [address] UREA NITROGEN 19 mg/dL 7-25 GLUCOSE 90 mg/dL 65-100 SODIUM 139 mmol/L 135-145 POTASSIUM 4.8 mmol/L 3.5-5.0 CHLORIDE 104 mmol/L 100-110 CO2 26 meq/L 20-30 CREATININE, Serum 1.04 mg/dL 0.50-1.40 eGFR(CKD-EPI 2020) 87 mL/min >60 Jul 06, 2024 02:09 PM [facility] CBC AND DIFF (AUTO) Specimen Type: BLOOD No comment entered. Ordering Provider: Brian REEVES Report Released Date/Time: Jul 01, 2024 03:56 PM Reporting Lab: [facility] [address] [address] Performing Lab: [facility] [address] [address] WBC 8.69 10*3/uL 4.50-11.00 RBC 5.01 10*6/uL [...] 2023 10:00 AM VA-TOBACCO USER EVERY DAY [facility] [place] [facility] Tobacco Use History This section includes a history of the smoking, or tobacco-related health factors, that were collected on or before the date of the Encounter. The data comes from the [place] facility where the Encounter took place. Date/Time Smoking Status/Tobac co Use Comment Facility Nov 19, 2023 10:00 AM VA-TOBACCO USE ADVICE [place] [facility] [facility] Nov 19, 2023 10:00 AM VA-TOBACCO USE ELECTRODYNAMICIST NO [place] [facility] [facility] Nov 19, 2023 10:00 AM VA-TOBACCO USE MED NO [place] [facility] [facility] Nov 19, 2023 10:00 AM VA-TOBACCO USE [place] 30 MIN OF WAKEUP [place] [facility] [facility] Nov 19, 2023 10:00 AM VA-TOBACCO USER EVERY DAY [place] [facility] [place] [facility] February 10, 2023 01:00 PM ORYX ADMIT TOBACCO SCREEN YES [place] [facility] [facility] February 10, 2023 01:00 PM ORYX ADMIT TOBACCO USE CIGS GR 5D [place] [facility] [place] [facility] February 10, 2023 01:00 PM ORYX DAILY TOBACCO ELECTRODYNAMICIST RECEIVED [place] [facility] [place] [facility] February 10, 2023 01:00 PM ORYX DAILY TOBACCO MEDS ORDERED [place] [facility] [facility] Sep 02, 2022 08:00 AM VA-TOBACCO USE 30 YEARS OR MORE [place] [facility] Sep 02, 2022 08:00 AM VA-TOBACCO USE ADVICE [place] [facility] Sep 02, 2022 08:00 AM VA-TOBACCO USE ELECTRODYNAMICIST YES [place] [facility] [facility] Sep 02, 2022 08:00 AM VA-TOBACCO USE MED NOTIFY PROVIDER [place] [facility] [place] [facility] Sep 02, 2022 08:00 AM VA-TOBACCO USE WI 30 MIN OF WAKEUP [place] [facility] [facility] Sep 02, 2022 08:00 AM VA-TOBACCO USER EVERY DAY [place] [facility] Oct 12, 2016 09:13 AM QUIT TOBACCO USE 1-7 YEARS AGO [facility] Sep 25, 2015 10:24 AM QUIT TOBACCO USE 1-7 YEARS AGO [facility] Oct 05, 2013 03:03 PM QUIT TOBACCO USE 1-7 YEARS AGO PT HAS QUIT LES THAN A YEAR AGO. [facility] Oct 05, 2013 03:03 PM QUIT TOBACCO USE IN PAST YEAR [facility] Advance Directives: All historical and current Section [...] Source Mar 06, 2023 ADVANCE DIRECTIVE BEV EPTTIT [facility] Mar 06, 2023 ADVANCE DIRECTIVE DISCUSSION BEV PETTIT [facility] Apr 20, 2020 ADVANCE DIRECTIVE DISCUSSION ERUM MARTÍNEZ [facility] Feb 24, 2020 ADVANCE DIRECTIVE DISCUSSION POOL FUENTES [facility] Oct 30, 2016 ADVANCE DIRECTIVE KULDEEP FAM [facility] Radiology Reports: +/- 30 days of the [...] 11:13 AM KNEE 3 VIEWS (LEFT ): ATRUNCHLOEJEYSON TIERA [id number] -1975 M Exm Date: JUL 14, 2024@11:13 Req Phys: OPAL REEVES Loc: CWM/NO/PACT 4 (Req'g Loc) Img Loc: [facility]/BUILDING 1 Service: [place] [address] (Case 198 COMPLETE) KNEE 3 VIEWS (LEFT) (RAD Detailed) CPT:91146 Reason for Study: 5 yrs of left knee pain Clinical History: Report Status: Verified Date Reported: JUL 14, 2024 Date Verified: JUL 14, 2024 Cell Feed Department Supervisor E-Sig:/ES/LIA JACINTO JR Report: Study: AP weight-bearing [...] Primary Interpreting Staff: LIA JACINTO JR, Radiologist (Cell Feed Department Supervisor) /LIA CARPENTER JR [facility] Encounter Notes: All associated encounter notes This [...] pain control. 1. labs this week in [place] 2. vet can use BOTH indocin 50 mg bid AND tylenol 1000 mg tid for pain contro 3. vet will have f/u w/ PCP in august. when is hernia surgery? /brown/ OPAL REEVES MD PHYSICIAN Signed: 07/01/2024 15:55 Receipt Acknowledged By: 07/01/2024 16:10 /brown/ QUINN WONG [employer] Director 07/06/2024 08:14 /brown/ NEEMA JIANG REGISTERED NURSE ====== --- Original Document --- 07/01/24 PRIMARY CARE SECURE MESSAGING: ------Original Message ------- Sent: 06/30/2024 06:08 PM ET From: JEYSON SANCHEZ To: Brian REEVES_PRIMARY CARE-_[facility] Subject: Medication:Herina pain. Can I get [...] want to do it while living at [place]. Phone number given for [facility] which is on the consult. It looks like attempts have been made to contact to schedule appt but he states there have been none. /brown/ QUINN WONG [employer] Director Signed: 07/01/2024 16:09 LAUREN REEVES [facility] [place] [facility] Jul 01, 2024 02:26 PM PRIMARY CARE SECURE MESSAGING: LOCAL TITLE: PRIMARY CARE SECURE MESSAGING STANDARD TITLE: PRIMARY CARE SECURE MESSAGING DATE OF NOTE: JUL 01, 2024@14:26 ENTRY DATE: JUL 01, 2024@14:26:01 AUTHOR: NEEMA JIANG EXP COSIGNER: URGENCY: STATUS: COMPLETED PRIMARY CARE SECURE MESSAGING Has ADDENDA ------Original Message ------- Sent: 06/30/2024 06:08 PM ET From: JEYSON SANCHEZ To: Brian REEVES_PRIMARY CARE-_[facility] Subject: Medication:Herina pain. Can I get [...] pain control. 1. labs this week in [place] 2. vet can use BOTH indocin 50 mg bid AND tylenol 1000 mg tid for pain contro 3. vet will have f/u w/ PCP in august. when is hernia surgery? /brown/ OPAL REEVES MD PHYSICIAN Signed: 07/01/2024 15:55 Receipt Acknowledged By: 07/01/2024 16:10 /brown/ QUINN WONG [employer] Director * AWAITING SIGNATURE * NEEMA JIANG 07/01/2024 ADDENDUM STATUS: COMPLETED [facility]SA called , he states there is no surgery date scheduled. He did not want to do it while living at [place]. Phone number given for [facility] which is on the consult. It looks like attempts have been made to contact to schedule appt but he states there have been none. /brown/ QUINN WONG [employer] Director Signed: 07/01/2024 16:09 NEEMA JIANG [place] [facility]
--- OUTSIDE RECORDS SUMMARY | 2024-09-03 11:34 | XMS_ITS | Encounter Summary ---
Author Name [facility] [place] Organization [facility] [place] Address [address] [place] [address] Care Team Providers Care Executive Chef Assistant Name Role Phone MARTIN BOWERS Primary Care Provider OPAL Mckay Primary Care Provider Unajerome ailable Selected Encounter This section includes the information on record at [place] for the Encounter. Date/Time Encounter Type Encounter Description Reason Provider Source Jul 06, 2024 01:00 PM OFFICE O/P NEW MOD 45 MIN [employer] ICD-10-CM M54.59 Other low back pain ZONIAGABE [facility] Encounter Template Text not used by [place] Assessments - Encounter Diagnoses This section includes the primary and secondary diagnoses documented for the Encounter. Date/Time Primary/Secondary Diagnosis Diagnosis Name Provider Source Jul 06, 2024 04:22 PM PRIMARY Other low back pain ZONIAGABE [facility] Plan of Treatment: Future Appointments (+ [...] - MEDICINE [facility] [place] [facility] Jul 14, 2024 10:30 AM AMBULATORY - MEDICINE [place] [facility] [place] [facility] Jul 20, 2024 03:30 PM AMBULATORY - MEDICINE [place] [facility] [place] [facility] Jul 26, 2024 01:30 PM AMBULATORY - MEDICINE [place] [facility] [place] [facility] Jul 28, 2024 10:30 AM AMBULATORY - PSYCHIATRY [place] [facility] [place] [facility] Aug 10, 2024 10:00 AM AMBULATORY - MEDICINE [place] [facility] [place] [facility] Aug 10, 2024 03:00 PM AMBULATORY - MEDICINE [place] C [place] [place] [facility] Sep 20, 2024 03:00 PM AMBULATORY - MEDICINE [place] C [place] [facility] Nov 10, 2024 10:00 AM AMBULATORY - MEDICINE [place] C [place] [facility] Active, Pending, and Scheduled Orders This section includes a listing of several types of active, pending, and scheduled orders, including clinic medications orders, diagnostic test orders, procedure orders and consult orders; where the start date of the order is 45 days before the date of the Encounter or 45 days after the date of theEncounter. The data comes from all [place] treatment [facility]. Test Date/Time Test Type Test Details Facility Name Jun 09, 2024 01:58 PM Consult Order COMMUNITY CARE-GEN SURGERY Cons [place] Inspector's Choice [facility] [place] [facility] Jun 09, 2024 03:46 PM Consult Order PSYCHOTHER APY BHIP/NHM OUTPT Cons [place] Inspector's Choice [place] [facility] [place] [facility] Jul 14, 2024 10:55 AM Consult Order REHAB MEDI CINE/NHM OUTPT Cons [place] Inspector's Choice [place] [facility] [place] [facility] Jul 19, 2024 11:25 AM Consult Order COMMUNITY CARE-DENTAL GENERAL Cons [place] Inspector's Choice [place] [facility] [place] [facility] Jul 22, 2024 08:51 AM Consult Order COMMUNITY CARE-DENTAL GENERAL Cons [place] Inspector's Choice [place] [facility] [place] [facility] Jul 22, 2024 01:51 PM Consult Order COMMUNITY [facility]-DENTAL GENERAL Cons [place] Inspector's Choice [facility] Lab Results: +/- 30 days of the encounter This section includes the Chemistry and Hematology Lab Results on record with [place] for the patient. Radiology Reports and Pathology Reports are provided separately, in subsequent sections. Lab Results This section contains the Chemistry/Hematology Results that were resulted 30 days before or 30 daysafter the date of the Encounter. Date/Time Source Result Type Result - Unit Interpretation Reference Range Comment Jul 06, 2024 02:09 PM [facility] LIPID PANEL FASTING Specimen Type: SERUM No comment entered. Ordering Provider: PERRY LONG MD Report Released Date/Time: Jun 17, 2024 02:14 PM Reporting Lab: [address] [address] Performing Lab: [address] [address] CHOLESTEROL 251 mg/dL H TRIGLYCERIDE 70 mg/dL 0-150 LDL calculated 171 mg/dL H 0-129 CHOL/HDL 3.8 HDL CHOLESTEROL 66 mg/dL H 40-60 Jul 06, 2024 02:09 PM [facility] CALCIUM Specimen Type: SERUM No comment entered. Ordering Provider: Brian REEVES Report Released Date/Time: Jul 01, 2024 03:56 PM Reporting Lab: [address] [address] Performing Lab: [address] [address] CALCIUM 9.8 mg/dL 8.5-10.2 Jul 06, 2024 02:09 PM [facility] HEMOGLOBIN A1C PANEL Specimen Type: [...] 2024 03:56 PM Reporting Lab: [facility] [address] [address] Performing Lab: [address] [address] HEMOGLOBIN A1C 4.9 4.0-5.6 Jul 06, 2024 02:09 PM [facility] LIVER FUNCTION Specimen Type: SERUM No comment entered. Ordering Provider: Brian REEVES Report Released Date/Time: Jul 01, 2024 03:56 PM Reporting Lab: [address] [address] Performing Lab: [address] [address] PROTEIN,TOTAL 7.4 g/dL 6.0-8.3 ALBUMIN 4.4 g/dL 3.5-5.0 ALKALINE PHOSPHATASE 95 U/L 40-150 AST 21 U/L 5-34 ALT 34 U/L BILIRUBIN, TOTAL 0.4 mg/dL 0.2-1.2 Jul 06, 2024 02:09 PM [facility] BASIC METABOLIC PANEL (non-fasting) Specimen Type: SERUM No comment entered. Ordering Provider: Brian REEVES Report Released Date/Time: Jul 01, 2024 03:56 PM Reporting Lab: [address] [address] Performing Lab: [address] [address] UREA NITROGEN 19 mg/dL 7-25 GLUCOSE 90 mg/dL 65-100 SODIUM 139 mmol/L 135-145 POTASSIUM 4.8 mmol/L 3.5-5.0 CHLORIDE 104 mmol/L 100-110 CO2 26 meq/L 20-30 CREATININE, Serum 1.04 mg/dL 0.50-1.40 eGFR(CKD-EPI 2020) 87 mL/min >60 Jul 06, 2024 02:09 PM [facility] CBC AND DIFF (AUTO) Specimen Type: BLOOD No comment entered. Ordering Provider: Brian REEVES Report Released Date/Time: Jul 01, 2024 03:56 PM Reporting Lab: [facility] [address] [facility] [address] Performing Lab: [facility] [address] [address] WBC 8.69 10*3/uL 4.50-11.00 RBC 5.01 10*6/uL [...] 2023 10:00 AM VA-TOBACCO USER EVERY DAY [place] [facility] Tobacco Use History This section includes a history of the smoking, or tobacco-related health factors, that were collected on or before the date of the Encounter. The data comes from the [place] facility where the Encounter took place. Date/Time Smoking Status/Tobac co Use Comment Facility Nov 19, 2023 10:00 AM VA-TOBACCO USE ADVICE [place] [facility] Nov 19, 2023 10:00 AM VA-TOBACCO USE SUSTAINABLE DEVELOPMENT POLICY ANALYST NO [place] [facility]TR [place] [facility] Nov 19, 2023 10:00 AM VA-TOBACCO USE MED NO [place] [place] [facility] Nov 19, 2023 10:00 AM VA-TOBACCO USE WI 30 MIN OF WAKEUP [place] [facility] [place] [facility] Nov 19, 2023 10:00 AM VA-TOBACCO USER EVERY DAY [place] [facility] [place] [facility] February 10, 2023 01:00 PM ORYX ADMIT TOBACCO SCREEN YES [place] [facility] [place] [facility] February 10, 2023 01:00 PM ORYX ADMIT TOBACCO USE CIGS GR 5D [place] [facility]TR [place] [facility] February 10, 2023 01:00 PM ORYX DAILY TOBACCO SUSTAINABLE DEVELOPMENT POLIC[facility] [place] [facility] February 10, 2023 01:00 PM ORYX DAILY TOBACCO MEDS ORDERED [place] [facility] [place] [facility] Sep 02, 2022 08:00 AM VA-TOBACCO USE 30 YEARS OR MORE [place] [facility] [place] [facility] Sep 02, 2022 08:00 AM VA-TOBACCO USE ADVICE [place] [place] [facility] Sep 02, 2022 08:00 AM VA-TOBACCO USE SUSTAINABLE DEVELOPMENT POLICY ANALYST YES [place] [facility] [place] [facility] Sep 02, 2022 08:00 AM VA-TOBACCO USE MED NOTIFY PROVIDER [place] [facility] [place] [facility] Sep 02, 2022 08:00 AM VA-TOBACCO USE [place] 30 MIN OF WAKEUP [place] [facility] [place] [facility] Sep 02, 2022 08:00 AM VA-TOBACCO USER EVERY DAY [facility] Oct 12, 2016 09:13 AM QUIT TOBACCO USE 1-7 YEARS AGO [facility] Sep 25, 2015 10:24 AM QUIT TOBACCO USE 1-7 YEARS AGO [facility] Oct 05, 2013 03:03 PM QUIT TOBACCO USE 1-7 YEARS AGO PT HAS QUIT LES THAN A YEAR AGO. [facility] Oct 05, 2013 03:03 PM QUIT TOBACCO USE IN PAST YEAR [facility] Advance Directives: All historical and [...] 2023 ADVANCE DIRECTIVE BEV PETTIT [facility] Mar 06, 2023 ADVANCE DIRECTIVE DISCUSSION BEV PETTIT [facility] Apr 20, 2020 ADVANCE DIRECTIVE DISCUSSION ERUM MARTÍNEZ [facility] Feb 24, 2020 ADVANCE DIRECTIVE DISCUSSION POOL FUENTES [facility] Oct 30, 2016 ADVANCE DIRECTIVE KULDEEP FAM [facility] Radiology Reports: +/- 30 days [...] the Encounter. The data comes from all [place] treatment facilities. Date/Time Radiology Report Provider Source Jul 14, 2024 11:13 AM KNEE 3 VIEWS (LEFT ): JEYSON SANCHEZ [id number] -1975 M Exm Date: JUL 14, 2024@11:13 Req Phys: OPAL REEVES Loc: CWM/NO/PACT 4 (Req'g Loc) Img Loc: [facility]/BUILDING 1 Service: [place] [address] (Case 198 COMPLETE) KNEE 3 VIEWS (LEFT) (RAD Detailed) CPT:46882 Reason for Study: 5 yrs of left knee pain Clinical History: Report Status: Verified Date Reported: JUL 14, 2024 Date Verified: JUL 14, 2024 Insurance Collector E-Sig:/ES/LIA JACINTO JR Report: Study: AP weight-bearing [...] Primary Interpreting Staff: LIA JACINTO JR, Radiologist (Insurance Collector) /LIA CARPENTER JR [facility] Encounter Notes: All associated encounter [...] SERVICE - OTHER OR NONE SERVICE BRANCH: [place] [facility] Connected Disabilities with % Eligibility: Active Problem Acute back pain - lumbar M54.50 06/09/2024 OPAL REEVES Tinea unguium B35.1 06/09/2024 OPAL REEVES Exposure to potentially hazardous s 11/12/2023 TESS SMALLWOOD Homeless Z59.01 04/21/2023 ROSANNA JOYCE Inguinal hernia K40.91 06/09/2024 OPAL REEVES Cannabis dependence F12.20 02/21/2023 JULES PEREZ Schizoaffective disorder, bipolar t 02/20/2023 JULES PEREZ Alcohol dependence F10.24 02/10/2023 ADELSO LOMBARDO Hypertension I10. 06/09/2024 OPAL REEVES Gastroesophageal reflux disease K21 09/02/2022 FABRICIO PRINCE JAWJENNIFER Nicotine dependence F17.200 09/02/2022 JAMAR PRINCEAMMED JAWED Bipolar disorder F31.9 09/02/2022 FABRICIO PRINCE JAWED Positive PPD R76.11 09/02/2022 LENKA PRINCEED JAWED Left knee pain (SNOMED CT [id number] 09/02/2022 SURESHMOHAMMED JAWED Asthma (SNOMED CT [id number]) J45.99 09/02/2022 FABRICIO PRINCE JAWED Past Surgeries: knee Patient [facility] [place] [facility] with C/C Bilat low back [...] 4/10 Onset: years ago; he moved to [facility] [place] from [place] Palliative: acetaminophen Provocative: bending putting socks on Timing: worse in mornings Prior treatment: cortisone injection R hip ; Physical therapy in [facility] Prior healthcare specialist: years ago in [facility], 20 years ago, self pay Exercise/Activities: tries [...] Signed: 07/06/2024 16:25 GABE BRAR [facility]
--- OUTSIDE RECORDS SUMMARY | 2024-09-03 11:34 | XMS_ITS ---
Author Name [facility] [place] Organization [facility] [place] [place] Address [address] [place] [address] Care Team Providers Care Lead Cytogenetic Technologist Name Role Phone MARTIN BOWERS Primary Care Provider OPAL Mckay Primary Care Provider Unav ailable Selected Encounter This section includes the information on record at [place] for the Encounter. Date/Time Encounter Type Encounter Description Reason Provider Source Jul 06, 2024 02:00 PM ORTHC/PROSTC MGMT SBSQ ENC PHYSICAL THERAPY ICD-10-CM M25.562 Pain in left knee EDMUNDCRYSTAL IHAzael Encounter Template Text not used by [facility] Assessments - Encounter Diagnoses This section includes the primary and secondary diagnoses documented for the Encounter. Date/Time Primary/Secondary Diagnosis Diagnosis Name Provider Source Jul 06, 2024 02:33 PM PRIMARY Pain in left knee EDMUND,CELSO Hummel [facility] [place] [facility] Plan of Treatment: Future Appointments (+ 6 [...] - MEDICINE [facility] [place] [facility] Jul 14, 2024 10:30 AM AMBULATORY - MEDICINE [facility] [place] [facility] Jul 20, 2024 03:30 PM AMBULATORY - MEDICINE [facility] [place] [facility] Jul 26, 2024 01:30 PM AMBULATORY - MEDICINE [facility] [place] [facility] Jul 28, 2024 10:30 AM AMBULATORY - PSYCHIATRY [facility] [place] [facility] Aug 10, 2024 10:00 AM AMBULATORY - MEDICINE [facility] [place] [facility] Aug 10, 2024 03:00 PM AMBULATORY - MEDICINE [facility] [place] [facility] Sep 20, 2024 03:00 PM AMBULATORY - MEDICINE [facility] [place] [facility] Nov 10, 2024 10:00 AM AMBULATORY - MEDICINE [facility] [place] [facility] Active, Pending, and Scheduled Orders This section includes a listing of several types of active, pending, and scheduled orders, including clinic medications orders, diagnostic test orders, procedure orders and consult orders; where the start date of the order is 45 days before the date of the Encounter or 45 days after the date of theEncounter. The data comes from all [facility] treatment [facility]. Test Date/Time Test Type Test Details Facility Name Jun 09, 2024 01:58 PM Consult Order COMMUNITY CARE-GEN SURGERY Cons Security Associate's Choice [facility] [place] [facility] Jun 09, 2024 03:46 PM Consult Order PSYCHOTHER APY BHIP/NHM OUTPT Cons Security Associate's Choice [facility] [place] [facility] Jul 14, 2024 10:55 AM Consult Order REHAB MEDI CINE/NHM OUTPT Cons Security Associate's Choice [facility] [place] [facility] Jul 19, 2024 11:25 AM Consult Order COMMUNITY CARE-DENTAL GENERAL Cons Security Associate's Choice [facility] [place] [facility] Jul 22, 2024 08:51 AM Consult Order COMMUNITY CARE-DENTAL GENERAL Cons Security Associate's Choice [facility] [place] [facility] Jul 22, 2024 01:51 PM Consult Order COMMUNITY [facility]-DENTAL GENERAL Cons Security Associate's Choice [facility] Lab Results: +/- 30 days of [...] Comment Jul 06, 2024 02:09 PM [facility] LIPID PANEL FASTING Specimen Type: SERUM No comment entered. Ordering Provider: PERRY LONG MD Report Released Date/Time: Jun 17, 2024 02:14 PM Reporting Lab: [facility] [address] [facility] [address] Performing Lab: [address] [address] CHOLESTEROL 251 mg/dL H TRIGLYCERIDE 70 mg/dL 0-150 LDL calculated 171 mg/dL H 0-129 CHOL/HDL 3.8 HDL CHOLESTEROL 66 mg/dL H 40-60 Jul 06, 2024 02:09 PM [facility] HEMOGLOBIN A1C PANEL Specimen Type: BLOOD [...] 01, 2024 03:56 PM Reporting Lab: [facility] [address] [facility] [address] Performing Lab: [address] [address] HEMOGLOBIN A1C 4.9 4.0-5.6 Jul 06, 2024 02:09 PM [facility] CALCIUM Specimen Type: SERUM No comment entered. Ordering Provider: Brian REEVES Report Released Date/Time: Jul 01, 2024 03:56 PM Reporting Lab: [facility] [address] [facility] [address] Performing Lab: [address] [address] CALCIUM 9.8 mg/dL 8.5-10.2 Jul 06, 2024 02:09 PM [facility] LIVER FUNCTION Specimen Type: SERUM No comment entered. Ordering Provider: Brian REEVES Report Released Date/Time: Jul 01, 2024 03:56 PM Reporting Lab: [address] [address] Performing Lab: [address] [address] PROTEIN,TOTAL 7.4 g/dL 6.0-8.3 ALBUMIN 4.4 g/dL 3.5-5.0 ALKALINE PHOSPHATASE 95 U/L 40-150 AST 21 U/L 5-34 ALT 34 U/L BILIRUBIN, TOTAL 0.4 mg/dL 0.2-1.2 Jul 06, 2024 02:09 PM [facility] BASIC METABOLIC PANEL (non-fasting) Specimen Type: SERUM No comment entered. Ordering Provider: Brian REEVES Report Released Date/Time: Jul 01, 2024 03:56 PM Reporting Lab: [address] [address] Performing Lab: [address] [address] UREA NITROGEN 19 mg/dL 7-25 GLUCOSE 90 mg/dL 65-100 SODIUM 139 mmol/L 135-145 POTASSIUM 4.8 mmol/L 3.5-5.0 CHLORIDE 104 mmol/L 100-110 CO2 26 meq/L 20-30 CREATININE, Serum 1.04 mg/dL 0.50-1.40 eGFR(CKD-EPI 2020) 87 mL/min >60 Jul 06, 2024 02:09 PM [facility] CBC AND DIFF (AUTO) Specimen Type: BLOOD No comment entered. Ordering Provider: Brian REEVES Report Released Date/Time: Jul 01, 2024 03:56 PM Reporting Lab: [facility] [address] [facility] [address] Performing Lab: [facility] [address] [facility] [address] WBC 8.69 10*3/uL 4.50-11.00 RBC 5.01 10*6/uL [...] place. Date/Time Current Smoking Status Comment Gino it Nov 19, 2023 10:00 AM VA-TOBACCO USE [place] 30 MIN OF WAKEUP [facility] [place] [facility] Tobacco Use History This section includes a history of the smoking, or tobacco-related health factors, that were collected on or before the date of the Encounter. The data comes from the [place] facility where the Encounter took place. Date/Time Smoking Status/Tobac co Use Comment Facility Nov 19, 2023 10:00 AM VA-TOBACCO USE ADVICE [facility] [place] [facility] Nov 19, 2023 10:00 AM VA-TOBACCO USE FINANCIAL SALES PROFESSIONAL NO [facility] [place] [facility] Nov 19, 2023 10:00 AM VA-TOBACCO USE MED NO [facility] [place] [facility] Nov 19, 2023 10:00 AM VA-TOBACCO USE WI 30 MIN OF WAKEUP [facility] [place] [facility] Nov 19, 2023 10:00 AM VA-TOBACCO USER EVERY DAY [facility] [place] [facility] February 10, 2023 01:00 PM ORYX ADMIT TOBACCO SCREEN YES [facility] [place] [facility] February 10, 2023 01:00 PM ORYX ADMIT TOBACCO USE CIGS GR 5D [facility] [place] [facility] February 10, 2023 01:00 PM ORYX DAILY TOBACCO FINANCIAL SALES PROFESSIONAL RECEIVED [facility] [place] [facility] February 10, 2023 01:00 PM ORYX DAILY TOBACCO MEDS ORDERED [facility] [place] [facility] Sep 02, 2022 08:00 AM VA-TOBACCO USE 30 YEARS OR MORE [facility] [place] [facility] Sep 02, 2022 08:00 AM VA-TOBACCO USE ADVICE [facility] [place] [facility] Sep 02, 2022 08:00 AM VA-TOBACCO USE FINANCIAL SALES PROFESSIONAL YES [facility] [place] [facility] Sep 02, 2022 08:00 AM VA-TOBACCO USE MED NOTIFY PROVIDER [facility] [place] [facility] Sep 02, 2022 08:00 AM VA-TOBACCO USE WI 30 MIN OF WAKEUP [facility] [place] [facility] Sep 02, 2022 08:00 AM VA-TOBACCO USER EVERY DAY [facility] Oct 12, 2016 09:13 AM QUIT TOBACCO USE 1-7 YEARS AGO [facility] Sep 25, 2015 10:24 AM QUIT TOBACCO USE 1-7 YEARS AGO [facility] Oct 05, 2013 03:03 PM QUIT TOBACCO USE 1-7 YEARS AGO PT HAS QUIT LES THAN A YEAR AGO. [facility] Oct 05, 2013 03:03 PM QUIT TOBACCO USE IN PAST YEAR [facility] Advance Directives: All historical and current [...] 06, 2023 ADVANCE DIRECTIVE BEV PETTIT [facility] Mar 06, 2023 ADVANCE DIRECTIVE DISCUSSION BEV PETTIT [facility] Apr 20, 2020 ADVANCE DIRECTIVE DISCUSSION ERUM MARTÍNEZ [facility] Feb 24, 2020 ADVANCE DIRECTIVE DISCUSSION POOL FUENTES [facility] Oct 30, 2016 ADVANCE DIRECTIVE KULDEEP FAM [facility] Radiology Reports: +/- 30 days of [...] KNEE 3 VIEWS (LEFT ): JEYSON SANCHEZ [id number] -1975 M Exm Date: JUL 14, 2024@11:13 Req Phys: MELISAGRUPO,OPAL Levine Pat Loc: CWM/NO/PACT 4 (Req'g Loc) Img Loc: [facility]BUILDING 1 Service: Unknown [facility] [place] [id number] (Case 198 COMPLETE) KNEE 3 VIEWS (LEFT) (RAD Detailed) CPT:28468 Reason for Study: 5 yrs of left knee pain Clinical History: Report Status: Verified Date Reported: JUL 14, 2024 Date Verified: JUL 14, 2024 Orthopedic Physical Therapist E-Sig:/ES/LIA JACINTO JR Report: Study: AP weight-bearing [...] Primary Interpreting Staff: LIA JACINTO JR, Radiologist (Orthopedic Physical Therapist) /LIA CARPENTER JR [facility] Encounter Notes: All associated encounter notes This section contains the clinical notes associated to the Encounter. Date/Time Encounter Note(s) Provider Source Jul 06, 2024 02:32 PM PHYSICAL THERAPY C ONSULT: LOCAL TITLE: PHYSICAL THERAPY CONSULT STANDARD TITLE: PHYSICAL THERAPY CONSULT DATE OF NOTE: JUL 06, 2024@14:32 ENTRY DATE: JUL 06, 2024@14:32:14 AUTHOR: CRYSTAL SHAFFER EXP COSIGNER: URGENCY: STATUS: COMPLETED Initial Evaluation date: [...] time. () Other: /es/ TAVON GOMEZ LICENSE DRESSAGE JUDGE Signed: 07/06/2024 14:33 CRYSTAL SHAFFER [facility]
--- OUTSIDE RECORDS SUMMARY | 2024-09-03 11:34 | XMS_ITS | Encounter Summary ---
Author Name [facility] [place] [facility] [place] Organization [facility] [place] Address [address] [place] [address] Care Team Providers Care Market Manager Name Role Phone MARTIN BOWERS Primary [...] 17, 2024 02:00 PM AMBULATORY - PS[place]IATRY [place] [facility] [place] [facility] Jul 06, 2024 01:00 PM AMBULATORY - MEDICINE [place] [facility] [place] [facility] Jul 06, 2024 02:00 PM AMBULATORY - REHAB MEDICIN E [place] [facility] [place] [facility] Jul 13, 2024 02:30 PM AMBULATORY - MEDICINE [facility] [place] [facility] Jul 14, 2024 10:30 AM AMBULATORY - MEDICINE [facility] [place] [facility] Jul 20, 2024 03:30 PM AMBULATORY - MEDICINE [facility] [place] [facility] Jul 26, 2024 01:30 PM AMBULATORY - MEDICINE [facility] [place] [facility] Jul 28, 2024 10:30 AM AMBULATORY - PSYCHIATRY [facility] [place] [facility] Aug 10, 2024 10:00 AM AMBULATORY - MEDICINE [facility] [place] [facility] Aug 10, 2024 03:00 PM AMBULATORY - MEDICINE [facility] [place] [facility] Sep 20, 2024 03:00 PM AMBULATORY - MEDICINE [facility] [place] [facility] Nov 10, 2024 10:00 AM AMBULATORY - MEDICINE [place] [facility] [place] [facility] Active, Pending, and Scheduled Orders This section includes a listing of several types of active, pending, and scheduled orders, including clinic medications orders, diagnostic test orders, procedure orders and consult orders; where the start date of the order is 45 days before the date of the Encounter or 45 days after the date of theEncounter. The data comes from all [place] treatment facilities. Test Date/Time Test Type Test Details Facility Name Jun 09, 2024 01:58 PM Consult Order COMMUNITY CARE-GEN SURGERY Cons Nitro Worker's Choice [facility] [place] [facility] Jun 09, 2024 03:46 PM Consult Order PSYCHOTHER APY BHIP/NHM OUTPT Cons Nitro Worker's Choice [facility] [place] [facility] Jul 14, 2024 10:55 AM Consult Order REHAB MEDI CINE/NHM OUTPT Cons Nitro Worker's Choice [facility] [place] [facility] Jul 19, 2024 11:25 AM Consult Order COMMUNITY CARE-DENTAL GENERAL Cons Nitro Worker's Choice [facility] [place] [facility] Jul 22, 2024 08:51 AM Consult Order COMMUNITY CARE-DENTAL GENERAL Cons Nitro Worker's Choice [facility] [place] [facility] Jul 22, 2024 01:51 PM Consult Order COMMUNITY CARE-DENTAL GENERAL Cons Nitro Worker's Choice [facility] Lab Results: +/- 30 days of the encounter This section includes the Chemistry and Hematology Lab Results on record with [place] for the patient. Radiology Reports and Pathology Reports are provided separately, in subsequent sections. Lab Results This section contains the Chemistry/Hematology Results that were resulted 30 days before or 30 daysafter the date of the Encounter. Date/Time Source Result Type Result - Unit Interpretation Reference Range Comment Jul 06, 2024 02:09 PM [facility] LIPID PANEL FASTING Specimen Type: SERUM No comment entered. Ordering Provider: PERRY LONG MD Report Released Date/Time: Jun 17, 2024 02:14 PM Reporting Lab: [address] [address] Performing Lab: [address] [address] CHOLESTEROL 251 mg/dL H TRIGLYCERIDE 70 mg/dL 0-150 LDL calculated 171 mg/dL H 0-129 CHOL/HDL 3.8 HDL CHOLESTEROL 66 mg/dL H 40-60 Jul 06, 2024 02:09 PM [facility] CALCIUM Specimen Type: SERUM No comment entered. Ordering Provider: Brian REEVES Report Released Date/Time: Jul 01, 2024 03:56 PM Reporting Lab: [address] [address] Performing Lab: [address] [address] CALCIUM 9.8 mg/dL 8.5-10.2 Jul 06, 2024 02:09 PM [facility] HEMOGLOBIN A1C PANEL Specimen Type: [...] Jul 01, 2024 03:56 PM Reporting Lab: [address] [address] Performing Lab: [address] [address] HEMOGLOBIN A1C 4.9 4.0-5.6 Jul 06, 2024 02:09 PM [facility] LIVER FUNCTION Specimen Type: SERUM No comment entered. Ordering Provider: Brian REEVES Report Released Date/Time: Jul 01, 2024 03:56 PM Reporting Lab: [address] [address] Performing Lab: [address] [address] PROTEIN,TOTAL 7.4 g/dL 6.0-8.3 ALBUMIN 4.4 g/dL 3.5-5.0 ALKALINE PHOSPHATASE 95 U/L 40-150 AST 21 U/L 5-34 ALT 34 U/L BILIRUBIN, TOTAL 0.4 mg/dL 0.2-1.2 Jul 06, 2024 02:09 PM [facility] BASIC METABOLIC PANEL (non-fasting) Specimen Type: SERUM No comment entered. Ordering Provider: Brian REEVES Report Released Date/Time: Jul 01, 2024 03:56 PM Reporting Lab: [address] [address] Performing Lab: [address] [address] UREA NITROGEN 19 mg/dL 7-25 GLUCOSE 90 mg/dL 65-100 SODIUM 139 mmol/L 135-145 POTASSIUM 4.8 mmol/L 3.5-5.0 CHLORIDE 104 mmol/L 100-110 CO2 26 meq/L 20-30 CREATININE, Serum 1.04 mg/dL 0.50-1.40 eGFR(CKD-EPI 2020) 87 mL/min >60 Jul 06, 2024 02:09 PM [facility] CBC AND DIFF (AUTO) Specimen Type: BLOOD No comment entered. Ordering Provider: Brian REEVES Report Released Date/Time: Jul 01, 2024 03:56 PM Reporting Lab: [facility] [address] [facility] [address] Performing Lab: [facility] [address] [facility] [address] WBC 8.69 10*3/uL 4.50-11.00 RBC 5.01 10*6/uL [...] ity Nov 19, 2023 10:00 AM VA-TOBACCO USER EVERY DAY [place] [facility] [place] [facility] Tobacco Use History This section includes a history of the smoking, or tobacco-related health factors, that were collected on or before the date of the Encounter. The data comes from the [place] facility where the Encounter took place. Date/Time Smoking Status/Tobac co Use Comment Facility Nov 19, 2023 10:00 AM VA-TOBACCO USE ADVICE [place] [facility] [place] [facility] Nov 19, 2023 10:00 AM VA-TOBACCO USE GROUNDWATER PROGRAMS DIRECTOR NO [place] [facility] [place] [facility] Nov 19, 2023 10:00 AM VA-TOBACCO USE MED NO [facility] [place] [facility] Nov 19, 2023 10:00 AM VA-TOBACCO USE WI 30 MIN OF WAKEUP [place] [facility] [place] [facility] Nov 19, 2023 10:00 AM VA-TOBACCO USER EVERY DAY [place] [facility] [place] [facility] February 10, 2023 01:00 PM ORYX ADMIT TOBACCO SCREEN YES [facility] [place] [facility] February 10, 2023 01:00 PM ORYX ADMIT TOBACCO USE CIGS GR 5D [place] [facility] [place] [facility] February 10, 2023 01:00 PM ORYX DAILY TOBACCO GROUNDWATER PROGRAMS DIRECTOR RECEIVED [facility] [place] [facility] February 10, 2023 01:00 PM ORYX DAILY TOBACCO MEDS ORDERED [facility] [place] [facility] Sep 02, 2022 08:00 AM VA-TOBACCO USE 30 YEARS OR MORE [facility] [place] [facility] Sep 02, 2022 08:00 AM VA-TOBACCO USE ADVICE [place] [facility] [place] [facility] Sep 02, 2022 08:00 AM VA-TOBACCO USE GROUNDWATER PROGRAMS DIRECTOR YES [facility] [place] [facility] Sep 02, 2022 08:00 AM VA-TOBACCO USE MED NOTIFY PROVIDER [facility] [place] [facility] Sep 02, 2022 08:00 AM VA-TOBACCO USE WI 30 MIN OF WAKEUP [facility] [place] [facility] Sep 02, 2022 08:00 AM VA-TOBACCO USER EVERY DAY [facility] Oct 12, 2016 09:13 AM QUIT TOBACCO USE 1-7 YEARS AGO [facility] Sep 25, 2015 10:24 AM QUIT TOBACCO USE 1-7 YEARS AGO [facility] Oct 05, 2013 03:03 PM QUIT TOBACCO USE 1-7 YEARS AGO PT HAS QUIT LES THAN A YEAR AGO. [facility] Oct 05, 2013 03:03 PM QUIT TOBACCO USE IN PAST YEAR [facility] Advance Directives: All historical and [...] Mar 06, 2023 ADVANCE DIRECTIVE BEV PETTIT [facility] Mar 06, 2023 ADVANCE DIRECTIVE DISCUSSION BEV PETTIT [facility] Apr 20, 2020 ADVANCE DIRECTIVE DISCUSSION ERUM MARTÍNEZ [facility] Feb 24, 2020 ADVANCE DIRECTIVE DISCUSSION POOL FUENTES [facility] Oct 30, 2016 ADVANCE DIRECTIVE KULDEEP FAM [facility] Encounter Notes: All associated encounter notes This section contains the clinical notes associated to the Encounter. Date/Time Encounter Note(s) Provider Source Jun 10, 2024 08:32 AM LETTERS: LOCAL TITLE: PATIENT LETTER (B) STANDARD TITLE: LETTERS DATE OF NOTE: JUN 10, 2024@08:32 ENTRY DATE: JUN 10, 2024@08:33:05 AUTHOR: HARRY JOSHI EXP COSIGNER: URGENCY: STATUS: COMPLETED JUN 10, 2024 JEYSON SANCHEZ [address] [place] [id number] Dear JEYSON SANCHEZ We would like to assist you in scheduling a PODIATRY appointment at the [place]. We have been unable to reach you by phone. To schedule this appointment please call toll free ext [phone]. Our booking appointment hours are Friday [...] Your health is important to us. Sincerely, [facility] [address] [facility] [address] [place] [address] [place] [address] ext. [phone] [facility] [address] [facility] [address] [place] [address] [place] [address] [phone] [facility] [address] [address] [place] [address] ext. [phone] [facility] [address] [place] [address] ext. [phone] HARRY JOSHI [place] [facility] [place] [facility]
--- OUTSIDE RECORDS SUMMARY | 2024-09-03 11:34 | XMS_ITS | Encounter Summary ---
Author Name Department of Vetera Affairs (VA) Organization Department of Vetera Affairs (ID) Address [address] [place] [address] Care Team Providers Care Miller [employer]per [employer]illery Name Role Phone MARTIN BOWERS Primary Care Provider OPAL Mckay Primary Care Provider Unav ailable Selected Encounter This section includes the information on record at ID for the Encounter. Date/Time Encounter Type Encounter Description Reason Pro vider Source Jul 01, 2024 04:05 PM Outpatient Encounter PRIMARY CARE/MEDICINE IHE Encounter Template Text not used by ID Plan of Treatment: Future Appointments (+ 6 months) and Future Tests (+/- 45 days) The Plan of Treatment section includes future care activities for the patient from all ID treatmentfacilities. This section includes future appointments and future orders which are active, pending or scheduled. Future Appointments This section includes appointments that were scheduled to occur 6 months from the date of the Encounter, up to a maximum of 20 appointments. The data comes from all ID treatment facilities. Appointment Date/Time Appointment Type Appointme nt Facility Name Jul 06, 2024 01:00 PM [facility] Jul 06, 2024 02:00 PM [facility] Jul 13, 2024 02:30 PM AMBULATORY - MEDICINE [facility] [place] [facility] Jul 14, 2024 10:30 AM AMBULATORY - MEDICINE [facility] [place] [facility] Jul 20, 2024 03:30 PM AMBULATORY - MEDICINE [facility] [place] [facility] Jul 26, 2024 01:30 PM AMBULATORY - MEDICINE [facility] [place] [facility] Jul 28, 2024 10:30 AM AMBULATORY - PSYCHIATRY [facility] [place] [facility] Aug 10, 2024 10:00 AM AMBULATORY - MEDICINE [facility] [place] [facility] Aug 10, 2024 03:00 PM AMBULATORY - MEDICINE [facility] [place] [facility] Sep 20, 2024 03:00 PM AMBULATORY - MEDICINE [facility] [place] [facility] Nov 10, 2024 10:00 AM AMBULATORY - MEDICINE [facility] [place] [facility] Active, Pending, and Scheduled Orders This section includes a listing of several types of active, pending, and scheduled orders, including clinic medications orders, diagnostic test orders, procedure orders and consult orders; where the start date of the order is 45 days before the date of the Encounter or 45 days after the date of theEncounter. The data comes from all ID treatment facilities. Test Date/Time Test Type Test Details Facility Name Jun 09, 2024 01:58 PM Consult Order COMMUNITY CARE-GEN SURGERY Cons Depilatory Painter's Choice [facility] [place] [facility] Jun 09, 2024 03:46 PM Consult Order PSYCHOTHER APY BHIP/NHM OUTPT Cons Depilatory Painter's Choice [facility] [place] [facility] Jul 14, 2024 10:55 AM Consult Order REHAB MEDI CINE/NHM OUTPT Cons Depilatory Painter's Choice [facility] [place] [facility] Jul 19, 2024 11:25 AM Consult Order COMMUNITY CARE-DENTAL GENERAL Cons Depilatory Painter's Choice [facility] [place] [facility] Jul 22, 2024 08:51 AM Consult Order COMMUNITY CARE-DENTAL GENERAL Cons Depilatory Painter's Choice [facility] [place] [facility] Jul 22, 2024 01:51 PM Consult Order COMMUNITY CARE-DENTAL GENERAL Cons Depilatory Painter's Choice [facility] [place] [facility] Lab Results: +/- 30 days of the encounter This section includes the Chemistry and Hematology Lab Results on record with ID for the patient. Radiology Reports and Pathology Reports are provided separately, in subsequent sections. Lab Results This section contains the Chemistry/Hematology Results that were resulted 30 days before or 30 daysafter the date of the Encounter. Date/Time Source Result Type Result - Unit Interpretation Reference Range Comment Jul 06, 2024 02:09 PM [facility] LIPID PANEL FASTING Specimen Type: SERUM No comment entered. Ordering Provider: PERRY LONG MD Report Released Date/Time: Jun 17, 2024 02:14 PM Reporting Lab: [address] [address] Performing Lab: [address] [address] CHOLESTEROL 251 mg/dL H TRIGLYCERIDE 70 mg/dL 0-150 LDL calculated 171 mg/dL H 0-129 CHOL/HDL 3.8 HDL CHOLESTEROL 66 mg/dL H 40-60 Jul 06, 2024 02:09 PM [facility] CALCIUM Specimen Type: SERUM No comment entered. Ordering Provider: Brian REEVES Report Released Date/Time: Jul 01, 2024 03:56 PM Reporting Lab: [address] [address] Performing Lab: [address] [address] CALCIUM 9.8 mg/dL 8.5-10.2 Jul 06, 2024 02:09 PM [facility] HEMOGLOBIN A1C PANEL Specimen Type: [...] Jul 01, 2024 03:56 PM Reporting Lab: [facility] [address] [address] Performing Lab: [address] [address] HEMOGLOBIN A1C 4.9 4.0-5.6 Jul 06, 2024 02:09 PM [facility] LIVER FUNCTION Specimen Type: SERUM No comment entered. Ordering Provider: Brian REEVES Report Released Date/Time: Jul 01, 2024 03:56 PM Reporting Lab: [address] [address] Performing Lab: [address] [address] PROTEIN,TOTAL 7.4 g/dL 6.0-8.3 ALBUMIN 4.4 g/dL 3.5-5.0 ALKALINE PHOSPHATASE 95 U/L 40-150 AST 21 U/L 5-34 ALT 34 U/L BILIRUBIN, TOTAL 0.4 mg/dL 0.2-1.2 Jul 06, 2024 02:09 PM [facility] BASIC METABOLIC PANEL (non-fasting) Specimen Type: SERUM No comment entered. Ordering Provider: Brian REEVES Report Released Date/Time: Jul 01, 2024 03:56 PM Reporting Lab: [address] [address] Performing Lab: [address] [address] UREA NITROGEN 19 mg/dL 7-25 GLUCOSE 90 mg/dL 65-100 SODIUM 139 mmol/L 135-145 POTASSIUM 4.8 mmol/L 3.5-5.0 CHLORIDE 104 mmol/L 100-110 CO2 26 meq/L 20-30 CREATININE, Serum 1.04 mg/dL 0.50-1.40 eGFR(CKD-EPI 2020) 87 mL/min >60 Jul 06, 2024 02:09 PM [facility] CBC AND DIFF (AUTO) Specimen Type: BLOOD No comment entered. Ordering Provider: D'GRUPO,M ICHAEL G Report Released Date/Time: Jul 01, 2024 03:56 PM Reporting [facility]: [facility] [address] [address] Performing Lab: [facility] [address] [address] WBC 8.69 10*3/uL 4.50-11.00 RBC 5.01 10*6/uL [...] and tobacco- related health factors from the ID facility where the Encounter took place. Current Smoking Status This section includes the most current smoking, or tobacco-related health factor, from the ID facility where the Encounter took place. Date/Time Current Smoking Status Gio hanson Nov 19, 2023 10:00 AM VA-TOBACCO USER EVERY DAY [facility] Tobacco Use History This section includes a history of the smoking, or tobacco-related health factors, that were collected on or before the date of the Encounter. The data comes from the ID facility where the Encounter took place. Date/Time Smoking Status/Tobac co Use Comment Facility Nov 19, 2023 10:00 AM VA-TOBACCO USE ADVICE ID [facility] [place] [facility] Nov 19, 2023 10:00 AM VA-TOBACCO USE PHARMACY INNOVATION ASSISTANT NO ID [facility] [place] [facility] Nov 19, 2023 10:00 AM VA-TOBACCO USE MED NO ID [facility] [place] [facility] Nov 19, 2023 10:00 AM VA-TOBACCO USE WI 30 MIN OF WAKEUP ID [facility] [place] [facility] Nov 19, 2023 10:00 AM VA-TOBACCO USER EVERY DAY ID [facility] [place] [facility] February 10, 2023 01:00 PM ORYX ADMIT TOBACCO SCREEN YES ID [facility]TR [facility] [place] [facility] February 10, 2023 01:00 PM ORYX ADMIT TOBACCO USE CIGS GR 5D ID [facility]TR [facility] [place] [facility] February 10, 2023 01:00 PM ORYX DAILY TOBACCO PHARMACY INNOVATION ASSISTANT RE[facility]IVED [facility] February 10, 2023 01:00 PM ORYX DAILY TOBACCO MEDS ORDERED ID CNTR [facility] [place] [facility] Sep 02, 2022 08:00 AM VA-TOBACCO USE 30 YEARS OR MORE ID [facility] [place] [facility] Sep 02, 2022 08:00 AM VA-TOBACCO USE ADVICE ID [facility] [place] [facility] Sep 02, 2022 08:00 AM VA-TOBACCO USE PHARMACY INNOVATION ASSISTANT YES ID [facility]TR [facility] [place] [facility] Sep 02, 2022 08:00 AM VA-TOBACCO USE MED NOTIFY PROVIDER ID [facility]TR [facility] [place] [facility] Sep 02, 2022 08:00 AM VA-TOBACCO USE WI 30 MIN OF WAKEUP ID CNTR [facility] [place] [facility] Sep 02, 2022 08:00 AM VA-TOBACCO USER EVERY DAY ID CNTR [facility] [place] [facility] Oct 12, 2016 09:13 AM QUIT TOBACCO USE 1-7 YEARS AGO [facility] Sep 25, 2015 10:24 AM QUIT TOBACCO USE 1-7 YEARS AGO [facility] Oct 05, 2013 03:03 PM QUIT TOBACCO USE 1-7 YEARS AGO PT HAS QUIT LES THAN A YEAR AGO. [facility] Oct 05, 2013 03:03 PM QUIT TOBACCO USE IN PAST YEAR [facility] Advance Directives: All historical and current Section Date Range: From patient's date of to the date document was created. This section includes ALL of a patient's completed or amended ID Advance and Rescinded Directives. The entries below indicate that a directive exists for the patient, but an actual copy is not included with this document. The data comes from all ID facilities. Date Advance Directives Provider Source Mar 06, 2023 ADVANCE DIRECTIVE BEV PETTIT [facility] Mar 06, 2023 ADVANCE DIRECTIVE DISCUSSION BEV PETTIT [facility] Apr 20, 2020 ADVANCE DIRECTIVE DISCUSSION ERUM MARTÍNEZ [facility] Feb 24, 2020 ADVANCE DIRECTIVE DISCUSSION POOL FUENTES [facility] Oct 30, 2016 ADVANCE DIRECTIVE KULDEEP FAM [facility] Radiology Reports: +/- 30 days [...] the Encounter. The data comes from all ID treatment facilities. Date/Time Radiology Report Provider Source Jul 14, 2024 11:13 AM KNEE 3 VIEWS (LEFT ): JEYSON SANCHEZ [id number] -1975 M Exm Date: JUL 14, 2024@11:13 Req Phys: OPAL REEVES Loc: CWM/NO/PACT 4 (Req'g Loc) Img Loc: [facility] 1 Service: Unknown [place] [address] (Case [id number] COMPLETE) KNEE 3 VIEWS (LEFT) (RAD Detailed) CPT:65843 Reason for Study: 5 yrs of left knee pain Clinical History: Report Status: Verified Date Reported: JUL 14, 2024 Date Verified: JUL 14, 2024 Grinding Supervisor E-Sig:/ES/LIA JACINTO JR Report: Study: AP [...] Primary Interpreting Staff: LIA JACINTO JR, Radiologist (Grinding Supervisor) /LIA CARPENTER JR [facility] Encounter Notes: All associated encounter [...] service connection injury. /brown/ QUINN WONG Advanced Gate Supervisor Signed: 07/01/2024 16:06 Receipt Acknowledged By: 07/01/2024 16:07 /brown/ OPAL REEVES MD PHYSICIAN QUINN WONG [facility]
--- OUTSIDE RECORDS SUMMARY | 2024-09-03 11:34 | XMS_ITS ---
Author Name Department of Veter[place] ns Affairs [place]) Organization Department of [place]a Affairs [place] Address [address] [place] [address] Care Team Providers Care Mechanical Unit Repairer Name Role Phone MARTIN BOWERS Primary Care Provider OPAL Mckay Primary Care Provider Unajerome ailable Selected Encounter This section includes the information on record at MA for the Encounter. Date/Time Encounter Type Encounter Description Reason Provider Source Jun 17, 2024 02:00 PM OFFICE O/P EST LOW 20 [facility] - IND ICD-10-CM F25.0 Schizoaffective disorder, bipolar type DERECK VILLANUEVA MD [facility] Encounter Template Text not used by MA Assessments - Encounter Diagnoses This section includes the primary and secondary diagnoses documented for the Encounter. Date/Time Primary/Secondary Diagnosis Diagnosis Name Provider Source Jun 17, 2024 02:24 PM PRIMARY Schizoaffective disorder, bipolar type DERECK VILLANUEVA MD [facility] Jun 17, 2024 02:24 PM SECONDARY Alcohol dependence with alcohol-induced mood disorder DERECK VILLANUEVA MD [facility] Jun 17, 2024 02:24 PM SECONDARY Insomnia, unspecified DERECK VILLANUEVA MD [facility] Plan of Treatment: Future Appointments (+ 6 months) and Future Tests (+/- 45 days) The Plan of Treatment section includes future care activities for the patient from all [facility] treatmentfast[facility]. This section includes future appointments and future orders which are active, pending or scheduled. Future Appointments This section includes appointments that were scheduled to occur 6 months from the date of the Encounter, up to a maximum of 20 appointments. The data comes from all [facility]. Appointment Date/Time Appointment Type Appointme nt Facility Name Jul 06, 2024 01:00 PM AMBULATORY - MEDICINE [place] [facility] [place] [facility] Jul 06, 2024 02:00 PM AMBULATORY - REHAB MEDICIN E [place] [facility] [place] [facility] Jul 13, 2024 02:30 PM AMBULATORY - MEDICINE MA [facility] [place] [place] [facility] Jul 14, 2024 10:30 AM AMBULATORY - MEDICINE MA C [facility] [place] [facility] Jul 20, 2024 03:30 PM AMBULATORY - MEDICINE MA [facility] [place] [place] [facility] Jul 26, 2024 01:30 PM AMBULATORY - MEDICINE MA [facility] [place] [place] [facility] Jul 28, 2024 10:30 AM AMBULATORY - PSYCHIATRY [place] [facility] [place] [facility] Aug 10, 2024 10:00 AM AMBULATORY - MEDICINE MA C [place] [place] [facility] Aug 10, 2024 03:00 PM AMBULATORY - MEDICINE MA C [place] [place] [facility] Sep 20, 2024 03:00 PM AMBULATORY - MEDICINE MA [facility] [place] [facility] Nov 10, 2024 10:00 AM AMBULATORY - MEDICINE [facility] [place] [facility] Active, Pending, and Scheduled Orders This section includes a listing of several types of active, pending, and scheduled orders, including clinic medications orders, diagnostic test orders, procedure orders and consult orders; where the start date of the order is 45 days before the date of the Encounter or 45 days after the date of theEncounter. The data comes from all [facility]. Test Date/Time Test Type Test Details Facility Name Jun 09, 2024 01:58 PM Consult Order COMMUNITY CARE-GEN SURGERY Cons Commercial Photographer's Choice [place] [facility]L [place] [facility] Jun 09, 2024 03:46 PM Consult Order PSYCHOTHER APY BHIP/NHM OUTPT Cons Commercial Photographer's Choice [facility] Jul 14, 2024 10:55 AM Consult Order REHAB MEDI CINE/NHM OUTPT Cons Commercial Photographer's Choice [facility] [place] [facility] Jul 19, 2024 11:25 AM Consult Order COMMUNITY CARE-DENTAL GENERAL Cons Commercial Photographer's Choice [facility] [place] [facility] Jul 22, 2024 08:51 AM Consult Order COMMUNITY CARE-DENTAL GENERAL Cons Commercial Photographer's Choice [facility] [place] [facility] Jul 22, 2024 01:51 PM Consult Order COMMUNITY CARE-DENTAL GENERAL Cons Commercial Photographer's Choice [facility] Lab Results: +/- 30 days [...] Range Comment Jul 06, 2024 02:09 PM [facility] LIPID PANEL FASTING Specimen Type: SERUM No comment entered. Ordering Provider: PERRY VILLANUEVA MD Report Released Date/Time: Jun 17, 2024 02:14 PM Reporting Lab: [address] [address] Performing Lab: [address] [address] CHOLESTEROL 251 mg/dL H TRIGLYCERIDE 70 mg/dL 0-150 LDL calculated 171 mg/dL H 0-129 CHOL/HDL 3.8 HDL CHOLESTEROL 66 mg/dL H 40-60 Jul 06, 2024 02:09 PM [facility] HEMOGLOBIN A1C PANEL Specimen Type: [...] 01, 2024 03:56 PM Reporting Lab: [address] [address] Performing Lab: [address] [address] HEMOGLOBIN A1C 4.9 4.0-5.6 Jul 06, 2024 02:09 PM [facility] CALCIUM Specimen Type: SERUM No comment entered. Ordering Provider: Brian REEVES Report Released Date/Time: Jul 01, 2024 03:56 PM Reporting Lab: [address] [address] Performing Lab: [address] [address] CALCIUM 9.8 mg/dL 8.5-10.2 Jul 06, 2024 02:09 PM [facility] LIVER FUNCTION Specimen Type: SERUM No comment entered. Ordering Provider: Brian REEVES Report Released Date/Time: Jul 01, 2024 03:56 PM Reporting Lab: [address] [address] Performing Lab: [address] [address] PROTEIN,TOTAL 7.4 g/dL 6.0-8.3 ALBUMIN 4.4 g/dL 3.5-5.0 ALKALINE PHOSPHATASE 95 U/L 40-150 AST 21 U/L 5-34 ALT 34 U/L BILIRUBIN, TOTAL 0.4 mg/dL 0.2-1.2 Jul 06, 2024 02:09 PM [facility] BASIC METABOLIC PANEL (non-fasting) Specimen Type: SERUM No comment entered. Ordering Provider: Brian REEVES Report Released Date/Time: Jul 01, 2024 03:56 PM Reporting Lab: [address] [address] Performing Lab: [facility] [address] [facility] [address] UREA NITROGEN 19 mg/dL 7-25 GLUCOSE 90 mg/dL 65-100 SODIUM 139 mmol/L 135-145 POTASSIUM 4.8 mmol/L 3.5-5.0 CHLORIDE 104 mmol/L 100-110 CO2 26 meq/L 20-30 CREATININE, Serum 1.04 mg/dL 0.50-1.40 eGFR(CKD-EPI 2020) 87 mL/min >60 Jul 06, 2024 02:09 PM [facility] CBC AND DIFF (AUTO) Specimen Type: BLOOD No comment entered. Ordering Provider: Brian REEVES Report Released Date/Time: Jul 01, 2024 03:56 PM Reporting Lab: [facility] [address] [facility] [address] Performing Lab: [facility] [address] [facility] [address] WBC 8.69 10*3/uL 4.50-11.00 RBC 5.01 10*6/uL [...] place. Date/Time Current Smoking Status Comment [facility] Nov 19, 2023 10:00 AM VA-TOBACCO USE [place] 30 MIN OF WAKEUP [place] [facility]TR [place] [facility] Tobacco Use History This section includes a history of the smoking, or tobacco-related health factors, that were collected on or before the date of the Encounter. The data comes from the [place] facility where the Encounter took place. Date/Time Smoking Status/Tobac co Use Comment Facility Nov 19, 2023 10:00 AM VA-TOBACCO USE ADVICE [facility] Nov 19, 2023 10:00 AM VA-TOBACCO USE ACTOR UNDERSTUDY NO [place] [facility]TR [place] [facility] Nov 19, 2023 10:00 AM VA-TOBACCO USE MED NO [place] [facility]L [place] [facility] Nov 19, 2023 10:00 AM VA-TOBACCO USE WI 30 MIN OF WAKEUP MA [facility]L [place] [facility] Nov 19, 2023 10:00 AM VA-TOBACCO USER EVERY DAY MA [facility] [place] [facility] February 10, 2023 01:00 PM ORYX ADMIT TOBACCO SCREEN YES [place] [facility]TRL [place] [facility] February 10, 2023 01:00 PM ORYX ADMIT TOBACCO USE CIGS GR 5D MA [facility]TRL [place] [facility] February 10, 2023 01:00 PM ORYX DAILY TOBACCO ACTOR UNDERSTUDY RECEIVED MA [facility]TRL [place] [facility] February 10, 2023 01:00 PM ORYX DAILY TOBACCO MEDS ORDERED [facility] Sep 02, 2022 08:00 AM VA-TOBACCO USE 30 YEARS OR MORE [facility] Sep 02, 2022 08:00 AM VA-TOBACCO USE ADVICE [facility] Sep 02, 2022 08:00 AM VA-TOBACCO USE ACTOR UNDERSTUDY YES [facility] Sep 02, 2022 08:00 AM VA-TOBACCO USE MED NOTIFY PROVIDER [facility] Sep 02, 2022 08:00 AM VA-TOBACCO USE [place] 30 MIN OF WAKEUP [facility] Sep 02, 2022 08:00 AM VA-TOBACCO USER EVERY DAY [facility] Oct 12, 2016 09:13 AM QUIT TOBACCO USE 1-7 YEARS AGO [facility] Sep 25, 2015 10:24 AM QUIT TOBACCO USE 1-7 YEARS AGO [facility] Oct 05, 2013 03:03 PM QUIT TOBACCO USE 1-7 YEARS AGO PT HAS QUIT LES THAN A YEAR AGO. [facility] Oct 05, 2013 03:03 PM QUIT TOBACCO USE IN PAST YEAR [facility] Advance Directives: All historical and current Section [...] Mar 06, 2023 ADVANCE DIRECTIVE BEV PETTIT [facility] Mar 06, 2023 ADVANCE DIRECTIVE DISCUSSION BEV PETTIT [facility] WSTRN [facility] Apr 20, 2020 ADVANCE DIRECTIVE DISCUSSION ERUM MARTÍNEZ [facility] Feb 24, 2020 ADVANCE DIRECTIVE DISCUSSION POOL F[facility]ENTES [facility] Oct 30, 2016 ADVANCE DIRECTIVE KULDEEP FAM [facility] Radiology Reports: +/- 30 days of the [...] the Encounter. The data comes from all [place] treatment facilities. Date/Time Radiology Report Provider Source Jul 14, 2024 11:13 AM KNEE 3 VIEWS (LEFT ): JEYSON SANCHEZ [id number] -1975 M Exm Date: JUL 14, 2024@11:13 Req Phys: OPAL REEVES Loc: CWM/NO/PACT 4 (Req'g Loc) Img [facility] Service: [place] [address] (Case 198 COMPLETE) KNEE 3 VIEWS (LEFT) (RAD Detailed) CPT:88430 Reason for Study: 5 yrs of left knee pain Clinical History: Report Status: Verified Date Reported: JUL 14, 2024 Date Verified: JUL 14, 2024 Acting Section Chief E-Sig:/ES/LIA JACINTO JR Report: Study: AP weight-bearing [...] Primary Interpreting Staff: LIA JACINTO JR, Radiologist (Acting Section Chief) /LIA CARPENTER JR [facility] Encounter Notes: All associated encounter notes This section contains the clinical notes associated to the Encounter. Date/Time Encounter Note(s) Provider Source Jul 12, 2024 08:54 AM LETTERS: LOCAL TITLE: MENTAL HEALTH DIAGNOSTIC RESULTS LETTER STANDARD TITLE: LETTERS DATE OF NOTE: JUL 12, 2024@08:54 ENTRY DATE: JUL 12, 2024@08:54:51 AUTHOR: JAMES VILLANUEVA EXP COSIGNER: URGENCY: STATUS: COMPLETED JEYSON SANCHEZ [address] [place] [id number] JUL 12, 2024 Dear Mr. JEYSON SANCHEZ, [...] 5.6 -------- Sincerely, James Villanueva Jr., MD [facility] JAMES VILLANUEVA MD [place] [place] [facility] Jun 17, 2024 08:17 AM PSYCHIATRY [...] TAKE ONE- HALF TABLET AT BEDTIME NEEDED JEYSONMOLLY MOTT LAURA is a [place], 49 yo, male who [facility] for 20 minutes for medication management. Two identifiers were used. CC: There are some medications I want to be back on the quetiapine. It seems to work well with trazodone. I wasn't comfortable when I was in [place] and now I'm in [place]. I'm having problems sleeping. Paras does not [...] is, I really don't have one and sheilat thinks he has lost, a little bit [...] earlier if needed. Suicide Screen: C-SSRS Screening Casey-Suicide Severity Rating Scale (C-SSRS Screener) 1. Over [...] PSYCHIATRIST Signed: 06/17/2024 14:24 JAMES [facility]ILLANUEVA MD [facility]
--- OUTSIDE RECORDS SUMMARY | 2024-09-03 11:34 | XMS_ITS | Encounter Summary ---
Author Name [facility] [place] Organization [place] Address [address] [place] [address] Care Team Providers Care Tone Regulator Name Role Phone MARTIN BOWERS Primary Care Provider OPAL Mckay Primary Care Provider Unav ailable Selected Encounter This section includes the information on record at [place] for the Encounter. Date/Time Encounter Type Encounter Description Reason Pro vider Source Jul 06, 2024 02:49 PM Outpatient Encounter PRIMARY CARE/MEDICINE IHE Encounter Template Text not used by [place] Plan of Treatment: Future Appointments (+ 6 [...] 13, 2024 02:30 PM AMBULATORY - MEDICINE [place] [facility] [facility] Jul 14, 2024 10:30 AM AMBULATORY - MEDICINE [facility] [place] [facility] Jul 20, 2024 03:30 PM AMBULATORY - MEDICINE [place] [facility] [place] [facility] Jul 26, 2024 01:30 PM AMBULATORY - MEDICINE [place] [facility] [facility] Jul 28, 2024 10:30 AM AMBULATORY - PSYCHIATRY [place] [facility] [place] [facility] Aug 10, 2024 10:00 AM AMBULATORY - MEDICINE [place] [facility] [place] [facility] Aug 10, 2024 03:00 PM AMBULATORY - MEDICINE [place] [facility] [facility] Sep 20, 2024 03:00 PM AMBULATORY - MEDICINE [place] [facility] [facility] Nov 10, 2024 10:00 AM AMBULATORY - MEDICINE [place] [facility] [place] [facility] Active, Pending, and Scheduled [...] data comes from all [place] treatment facilities. Test Date/Time Test Type Test Details Facility Name Jun 09, 2024 01:58 PM Consult Order COMMUNITY CARE-GEN SURGERY Cons Straw Hat Presser's Choice [place] [facility] [place] [facility] Jun 09, 2024 03:46 PM Consult Order PSYCHOTHER APY BHIP/NHM OUTPT Cons Straw [employer] Presser's Choice [place] [facility] [place] [facility] Jul 14, 2024 10:55 AM Consult Order REHAB MEDI CINE/NHM OUTPT Cons Straw Hat Presser's Choice [place] [facility] [place] [facility] Jul 19, 2024 11:25 AM Consult Order COMMUNITY CARE-DENTAL GENERAL Cons Straw Hat Presser's Choice [place] [facility] [place] [facility] Jul 22, 2024 08:51 AM Consult Order COMMUNITY CARE-DENTAL GENERAL Cons Straw Hat Presser's Choice [place] [facility] [place] [facility] Jul 22, 2024 01:51 PM Consult Order COMMUNITY CARE-DENTAL GENERAL Cons Straw Hat Presser's Choice [place] [facility] [place] [facility] Lab Results: +/- 30 days of [...] Jun 17, 2024 02:14 PM Reporting [facility] [address] [address] Performing Lab: [facility] [address] [address] CHOLESTEROL 251 mg/dL H TRIGLYCERIDE 70 mg/dL [...] Lab: [facility] [address] [address] Performing Lab: [address] [address] HEMOGLOBIN A1C 4.9 4.0-5.6 Jul 06, 2024 02:09 PM [facility] CALCIUM Specimen Type: SERUM No comment entered. Ordering Provider: Brian REEVES Report Released Date/Time: Jul 01, 2024 03:56 PM Reporting Lab: [facility] [address] [address] Performing Lab: [facility] [address] CALCIUM 9.8 mg/dL 8.5-10.2 Jul 06, 2024 02:09 PM [facility] LIVER FUNCTION Specimen Type: SERUM No comment entered. Ordering Provider: Brian REEVES Report Released Date/Time: Jul 01, 2024 03:56 PM Reporting Lab: [address] [address] Performing Lab: [address] [address] PROTEIN,TOTAL 7.4 g/dL 6.0-8.3 ALBUMIN 4.4 g/dL 3.5-5.0 ALKALINE PHOSPHATASE 95 U/L 40-150 AST 21 U/L 5-34 ALT 34 U/L BILIRUBIN, TOTAL 0.4 mg/dL 0.2-1.2 Jul 06, 2024 02:09 PM [facility] BASIC METABOLIC PANEL (non-fasting) Specimen Type: SERUM No comment entered. Ordering Provider: Brian REEVES Report Released Date/Time: Jul 01, 2024 03:56 PM Reporting Lab: [address] [address] Performing Lab: [address] [address] UREA NITROGEN 19 mg/dL 7-25 GLUCOSE 90 [...] Jul 01, 2024 03:56 PM Reporting Lab: [address] [address] Performing Lab: [address] [place] [address] WBC 8.69 10*3/uL 4.50-11.00 RBC 5.01 10*6/uL [...] USE [place] [facility] [place] [facility] Tobacco Use History This section includes a history of the smoking, or tobacco-related health factors, that were collected on or before the date of the Encounter. The data comes from the [place] facility where the Encounter took place. Date/Time Smoking Status/Tobac co Use Comment Facility Nov 19, 2023 10:00 AM VA-TOBACCO USE ADVICE [place] [facility] [place] [facility] Nov 19, 2023 10:00 AM VA-TOBACCO USE WELDING MACHINE OPERATOR HELPER ARC NO [place] [facility] [place] [facility] Nov 19, 2023 10:00 AM VA-TOBACCO USE MED NO [place] [facility] [place] [facility] Nov 19, 2023 10:00 AM VA-TOBACCO USE [place] 30 MIN OF WAKEUP [place] [facility] [place] [facility] Nov 19, 2023 10:00 AM VA-TOBACCO USER EVERY DAY [place] [facility] [place] [facility] February 10, 2023 01:00 PM ORYX ADMIT TOBACCO SCREEN YES [place] [facility] [place] [facility] February 10, 2023 01:00 PM ORYX ADMIT TOBACCO USE CIGS GR 5D [place] [facility] [facility] February 10, 2023 01:00 PM ORYX DAILY TOBACCO WELDING MACHINE OPERATOR HELPER ARC RECEIVED [place] [facility] [place] [facility] February 10, 2023 01:00 PM ORYX DAILY TOBACCO MEDS ORDERED [place] [facility] [place] [facility] Sep 02, 2022 08:00 AM VA-TOBACCO USE 30 YEARS OR MORE [place] [facility] [place] [facility] Sep 02, 2022 08:00 AM VA-TOBACCO USE ADVICE [place] [facility] [place] [facility] Sep 02, 2022 08:00 AM VA-TOBACCO USE WELDING MACHINE OPERATOR HELPER ARC YES [place] [facility] [place] [facility] Sep 02, 2022 08:00 AM VA-TOBACCO USE MED NOTIFY PROVIDER [place] [facility] [place] [facility] Sep 02, 2022 08:00 AM VA-TOBACCO USE [place] 30 MIN OF WAKEUP [place] [facility] [place] [facility] Sep 02, 2022 08:00 AM VA-TOBACCO USER EVERY DAY [place] [facility] [place] [facility] Oct 12, 2016 09:13 AM QUIT TOBACCO USE 1-7 YEARS AGO [place] [facility] [place] [facility] Sep 25, 2015 10:24 AM QUIT TOBACCO USE 1-7 YEARS AGO [place] [facility] [place] [facility] Oct [...] 20, 2020 ADVANCE DIRECTIVE DISCUSSION ERUM MARTÍNEZ [facility] Feb 24, 2020 ADVANCE DIRECTIVE DISCUSSION [facility] Oct 30, 2016 ADVANCE DIRECTIVE KULDEEP FAM [...] 3 VIEWS (LEFT ): JEYSON SANCHEZ TIERA [id number] -1975 M Exm Date: JUL 14, 2024@11:13 Req Phys: OPAL REEVES Loc: CWM/NO/PACT 4 (Req'g Loc) Img Loc: [facility] 1 Service: Unknown [facility] [address] (Case [id number] COMPLETE) KNEE 3 VIEWS (LEFT) (RAD Detailed) CPT:39399 Reason for Study: 5 yrs of left knee pain Clinical History: Report Status: Verified Date Reported: JUL 14, 2024 Date Verified: JUL 14, 2024 Microsoft Net Developer E-Sig:/ES/LIA JACINTO JR Report: Study: AP weight-bearing [...] Primary Interpreting Staff: LIA JACINTO JR, Radiologist ([employer] Net Developer) /LIA CARPENTER JR [facility] [...] ADDENDA <====Click to Start Advanced Medical Support [place] presents to the Primary Care clinic with the following request: [ ]Medication Renewal/Refill [ ]Consultation with Team RN [ ]Symptoms [ X ]Other - [place] send Secure message regarding getting something stronger than acetaminophen - see cprs from 07/01/24 secure message. [place] had not heard anything and asking for return call. Chainstitch Felled Seam Operator confirmed phone number in system. Please review and advise. The [place] states they are: [ ]Waiting [ X ]Not Waiting No Walk in visit scheduled with PACT Nurse [ X ] At this encounter the [place]'s demographics were verified. [ X ] At [...] ADDENDUM STATUS: COMPLETED See telephone note /brown/ lCarita Donahue RN Primary Care Staff Nurse Signed: 07/06/2024 15:05 JAYLA MITTAL [facility]
--- OUTSIDE RECORDS SUMMARY | 2024-09-03 11:35 | XMS_ITS | Encounter Summary ---
Author Name [facility] of [place] [place] Organization [facility] [place] Address [address] [place] [address] Care Team Providers Care Inspector Cold Working Name Role Phone MARTIN BOWERS Primary Care [...] 20, 2024 03:30 PM AMBULATORY - MEDICINE [place] [facility] [facility] Jul 26, 2024 01:30 PM AMBULATORY - MEDICINE [place] [facility] [facility] Jul 28, 2024 10:30 AM AMBULATORY - PSYCHIATRY [place] [facility] [place] [facility] Aug 10, 2024 10:00 AM AMBULATORY - MEDICINE [place] [facility] [facility] Aug 10, 2024 03:00 PM AMBULATORY - MEDICINE [place] [facility] [facility] Sep 20, 2024 03:00 PM AMBULATORY - MEDICINE [place] [facility] [facility] Nov 10, 2024 10:00 AM AMBULATORY - MEDICINE [place] [facility] [place] [facility] Active, Pending, and Scheduled Orders This section includes a listing of several types of active, pending, and scheduled orders, including clinic medications orders, diagnostic test orders, procedure orders and consult orders; where the start date of the order is 45 days before the date of the Encounter or 45 days after the date of theEncounter. The data comes from all [place] treatment facilities. Test Date/Time Test Type Test Details Facility Name Jun 09, 2024 01:58 PM Consult Order COMMUNITY CARE-GEN SURGERY Cons Shank Turner's Choice [facility] [place] [facility] Jun 09, 2024 03:46 PM Consult Order PSYCHOTHER APY BHIP/NHM OUTPT Cons Shank Turner's Choice [facility] [place] [facility] Jul 14, 2024 10:55 AM Consult Order REHAB MEDI CINE/NHM OUTPT Cons Shank Turner's Choice [facility] [place] [facility] Jul 19, 2024 11:25 AM Consult Order COMMUNITY CARE-DENTAL GENERAL Cons Shank Turner's Choice [facility] [place] [facility] Jul 22, 2024 08:51 AM Consult Order COMMUNITY CARE-DENTAL GENERAL Cons Shank Turner's Choice [facility] [place] [facility] Jul 22, 2024 01:51 PM Consult Order COMMUNITY CARE-DENTAL GENERAL Cons Shank Turner's Choice [facility] [place] [facility] Lab Results: +/- 30 days of [...] Range Comment Jul 06, 2024 02:09 PM [place] [facility] [place] [facility] LIPID PANEL FASTING Specimen Type: SERUM No comment entered. Ordering Provider: PERRY LONG MD Report Released Date/Time: Jun 17, 2024 02:14 PM Reporting Lab: [address] [address] Performing Lab: [address] [address] CHOLESTEROL 251 mg/dL H TRIGLYCERIDE 70 mg/dL 0-150 LDL calculated 171 mg/dL H 0-129 CHOL/HDL 3.8 HDL CHOLESTEROL 66 mg/dL H 40-60 Jul 06, 2024 02:09 PM [facility] CALCIUM Specimen Type: SERUM No comment entered. Ordering Provider: Brian REEVES Report Released Date/Time: Jul 01, 2024 03:56 PM Reporting Lab: [address] [address] Performing Lab: [address] [address] CALCIUM 9.8 mg/dL 8.5-10.2 Jul 06, 2024 02:09 PM [facility] HEMOGLOBIN A1C PANEL Specimen Type: BLOOD [...] Jul 01, 2024 03:56 PM Reporting Lab: [address] [address] Performing Lab: [address] [address] HEMOGLOBIN A1C 4.9 4.0-5.6 Jul 06, 2024 02:09 PM [facility] LIVER FUNCTION Specimen Type: SERUM No comment entered. Ordering Provider: Brian REEVES Report Released Date/Time: Jul 01, 2024 03:56 PM Reporting Lab: [address] [address] Performing Lab: [address] [address] PROTEIN,TOTAL 7.4 g/dL 6.0-8.3 ALBUMIN 4.4 g/dL 3.5-5.0 ALKALINE PHOSPHATASE 95 U/L 40-150 AST 21 U/L 5-34 ALT 34 U/L BILIRUBIN, TOTAL 0.4 mg/dL 0.2-1.2 Jul 06, 2024 02:09 PM [facility] BASIC METABOLIC PANEL (non-fasting) Specimen Type: SERUM No comment entered. Ordering Provider: Brian REEVES Report Released Date/Time: Jul 01, 2024 03:56 PM Reporting Lab: [address] [address] Performing Lab: [address] [address] UREA NITROGEN 19 mg/dL 7-25 GLUCOSE 90 mg/dL 65-100 SODIUM 139 mmol/L 135-145 POTASSIUM 4.8 mmol/L 3.5-5.0 CHLORIDE 104 mmol/L 100-110 CO2 26 meq/L 20-30 CREATININE, Serum 1.04 mg/dL 0.50-1.40 eGFR(CKD-EPI 2020) 87 mL/min >60 Jul 06, 2024 02:09 PM [facility] CBC AND DIFF (AUTO) Specimen Type: BLOOD No comment entered. Ordering Provider: Brian REEVES Report Released Date/Time: Jul 01, 2024 03:56 PM Reporting Lab: [address] [address] Performing Lab: [address] [address] WBC 8.69 10*3/uL 4.50-11.00 RBC 5.01 10*6/uL [...] 10:41 AM 98 90 145/84 19 97 [facility] Social History: Smoking Status (Most current) [...] 2023 10:00 AM VA-TOBACCO USER EVERY DAY [facility] Tobacco Use History This section includes a history of the smoking, or tobacco-related health factors, that were collected on or before the date of the Encounter. The data comes from the [place] facility where the Encounter took place. 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 [place] [facility] [place] [facility] Nov 19, 2023 10:00 AM VA-TOBACCO USE MED NO [place] [facility] [place] [facility] Nov 19, 2023 10:00 AM VA-TOBACCO USE [place] 30 MIN OF WAKEUP [place] [facility] [place] [facility] Nov 19, 2023 10:00 AM VA-TOBACCO USER EVERY DAY [place] [facility] [place] [facility] February 10, 2023 01:00 PM ORYX ADMIT TOBACCO SCREEN YES [place] [facility] [place] [facility] February 10, 2023 01:00 PM ORYX ADMIT TOBACCO USE CIGS GR 5D [place] [facility] [place] [facility] February 10, 2023 01:00 PM ORYX DAILY TOBACCO 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 RECEIVED [place] [facility] [place] [facility] February 10, 2023 01:00 PM ORYX DAILY TOBACCO MEDS ORDERED [place] [facility] [place] [facility] Sep 02, 2022 08:00 AM VA-TOBACCO USE 30 YEARS OR MORE [place] [facility] [place] [facility] Sep 02, 2022 08:00 AM VA-TOBACCO USE ADVICE [place] [facility] [place] [facility] Sep 02, 2022 08:00 AM VA-TOBACCO USE 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 YES [place] [facility] [place] [facility] Sep 02, 2022 08:00 AM VA-TOBACCO USE MED NOTIFY PROVIDER [place] [facility] [place] [facility] Sep 02, 2022 08:00 AM VA-TOBACCO USE [place] 30 MIN OF WAKEUP [place] [facility] [place] [facility] Sep 02, 2022 08:00 AM VA-TOBACCO USER EVERY DAY [place] [facility] [place] [facility] Oct 12, 2016 09:13 AM QUIT TOBACCO USE 1-7 YEARS AGO [place] [facility] [place] [facility] Sep 25, 2015 10:24 AM QUIT TOBACCO USE 1-7 YEARS AGO [facility] Oct 05, 2013 03:03 PM QUIT TOBACCO USE 1-7 YEARS AGO PT HAS QUIT LES THAN A YEAR AGO. [facility] Oct 05, 2013 03:03 PM QUIT TOBACCO USE IN PAST YEAR [facility] Advance Directives: All historical and current [...] Mar 06, 2023 ADVANCE DIRECTIVE BEV PETTIT [facility] Mar 06, 2023 ADVANCE DIRECTIVE DISCUSSION BEV PETTIT [facility] Apr 20, 2020 ADVANCE DIRECTIVE DISCUSSION ERUM MARTÍNEZ [facility] Feb 24, 2020 ADVANCE DIRECTIVE DISCUSSION POOL [facility] Oct 30, 2016 ADVANCE DIRECTIVE KULDEEP FAM [facility] Radiology Reports: +/- 30 days of [...] the Encounter. The data comes from all [place] treatment facilities. Date/Time Radiology Report Provider Source Jul 14, 2024 11:13 AM KNEE 3 VIEWS (LEFT ): JEYSON SANCHEZ [id number] -1975 M Exm Date: JUL 14, 2024@11:13 Req Phys: OPAL REEVES Loc: CWM/NO/PACT 4 (Req'g Loc) Im Loc: [facility] 1 Service: [place] [address] (Case 198 COMPLETE) KNEE 3 VIEWS (LEFT) (RAD Detailed) CPT:09118 Reason for Study: 5 yrs of left knee pain Clinical History: Report Status: Verified Date Reported: JUL 14, 2024 Date Verified: JUL 14, 2024 Case Management Rn E-Sig:/ES/LIA JACINTO JR Report: Study: AP weight-bearing [...] Primary Interpreting Staff: LIA JACINTO JR, Radiologist (Case Management Rn) /LIA CARPENTER JR [place] [facility]
--- OUTSIDE RECORDS SUMMARY | 2024-09-03 11:35 | XMS_ITS ---
Author Name [facility] Organization [facility] Address [address] [place] [address] Care Team Providers Care Ladle Builder Name Role Phone MARTIN BOWERS Primary Care Provider OPAL Mckay Primary Care Provider Unav ailable Selected Encounter This section includes the information on record at NH for the Encounter. Date/Time Encounter Type Encounter Description Reason Pro vider Source Jul 27, 2024 04:01 PM Outpatient Encounter ADMIN PAT ACTIVTIES (MASNONCT) IHE Encounter Template Text not used by NH Plan of Treatment: Future Appointments (+ 6 months) and Future Tests (+/- 45 days) The Plan of Treatment section includes future care activities for the patient from all NH treatmentfacilities. This section includes future appointments and future orders which are active, pending or scheduled. Future Appointments This section includes appointments that were scheduled to occur 6 months from the date of the Encounter, up to a maximum of 20 appointments. The data comes from all NH treatment facilities. Appointment Date/Time Appointment Type Appointme nt Facility Name Jul 28, 2024 10:30 AM AMBUL[facility]ORY - [facility] Aug 10, 2024 10:00 AM AMBUL[facility]ORY - MEDICINE [facility] Aug 10, 2024 03:00 PM AMBULATORY - MEDICINE [facility] [place] [facility] Sep 20, 2024 03:00 PM AMBULATORY - MEDICINE [place] [facility] [place] [facility] Nov 10, 2024 10:00 AM AMBULATORY - [facility]ICINE [facility] Active, Pending, and Scheduled Orders This section includes a listing of several types of active, pending, and scheduled orders, including clinic medications orders, diagnostic test orders, procedure orders and consult orders; where the start date of the order is 45 days before the date of the Encounter or 45 days after the date of theEncounter. The data comes from all NH treatment facilities. Test Date/Time Test Type Test Details Facility Name Jul 14, 2024 10:55 AM Consult Order REHAB MEDI CINE/NHM OUTPT Cons Guitar Maker Hand's Choice [facility] Jul 19, 2024 11:25 AM Consult Order COMMUNITY CARE-DENTAL GENERAL Cons Guitar Maker [facility] Jul 22, 2024 08:51 AM Consult Order COMMUNITY CARE-DENTAL GENERAL Cons Guitar Maker Hand's Choice [facility] Jul 22, 2024 01:51 PM Consult Order COMMUNITY CARE-DENTAL GENERAL Cons Guitar Maker [facility] Lab Results: +/- 30 days of the encounter This section includes the Chemistry and Hematology Lab Results on record with NH for the patient. Radiology Reports and Pathology Reports are provided separately, in subsequent sections. Lab Results This section contains the Chemistry/Hematology Results that were resulted 30 days before or 30 daysafter the date of the Encounter. Date/Time Source Result Type Result - Unit Interpretation Reference Range Comment Jul 06, 2024 02:09 PM [facility] LIPID PANEL FASTING Specimen Type: SERUM No comment entered. Ordering Provider: PERRY LONG MD Report Released Date/Time: Jun 17, 2024 02:14 PM Reporting Lab: [facility] [address] [facility] [address] Performing Lab: [address] [address] CHOLESTEROL 251 mg/dL H TRIGLYCERIDE 70 mg/dL 0-150 LDL calculated 171 mg/dL H 0-129 CHOL/HDL 3.8 HDL CHOLESTEROL 66 mg/dL H 40-60 Jul 06, 2024 02:09 PM [facility] HEMOGLOBIN A1C PANEL Specimen Type: BLOOD [...] 01, 2024 03:56 PM Reporting Lab: [address] [address] Performing Lab: [address] [address] HEMOGLOBIN A1C 4.9 4.0-5.6 Jul 06, 2024 02:09 PM [facility] CALCIUM Specimen Type: SERUM No comment entered. Ordering Provider: Brian REEVES Report Released Date/Time: Jul 01, 2024 03:56 PM Reporting Lab: [facility] [address] [facility] [address] Performing Lab: [address] [address] CALCIUM 9.8 mg/dL 8.5-10.2 Jul 06, 2024 02:09 PM [facility] LIVER FUNCTION Specimen Type: SERUM No comment entered. Ordering Provider: Brian REEVES Report Released Date/Time: Jul 01, 2024 03:56 PM Reporting Lab: [address] [address] Performing Lab: [address] [address] PROTEIN,TOTAL 7.4 g/dL 6.0-8.3 ALBUMIN 4.4 g/dL 3.5-5.0 ALKALINE PHOSPHATASE 95 U/L 40-150 AST 21 U/L 5-34 ALT 34 U/L BILIRUBIN, TOTAL 0.4 mg/dL 0.2-1.2 Jul 06, 2024 02:09 PM [facility] BASIC METABOLIC PANEL (non-fasting) Specimen Type: SERUM No comment entered. Ordering Provider: rBian REEVES Report Released Date/Time: Jul 01, 2024 03:56 PM Reporting Lab: [facility] [address] [facility] [address] Performing Lab: [address] [address] UREA NITROGEN 19 mg/dL 7-25 GLUCOSE 90 mg/dL 65-100 SODIUM 139 mmol/L 135-145 POTASSIUM 4.8 mmol/L 3.5-5.0 CHLORIDE 104 mmol/L 100-110 CO2 26 meq/L 20-30 CREATININE, Serum 1.04 mg/dL 0.50-1.40 eGFR(CKD-EPI 2020) 87 mL/min >60 Jul 06, 2024 02:09 PM [facility] CBC AND DIFF (AUTO) Specimen Type: BLOOD No comment entered. Ordering Provider: Brian REEVES Report Released Date/Time: Jul 01, 2024 03:56 PM Reporting Lab: [facility] [address] [facility] [address] Performing Lab: [address] [address] WBC 8.69 10*3/uL 4.50-11.00 RBC 5.01 10*6/uL [...] and tobacco- related health factors from the NH facility where the Encounter took place. Current Smoking Status This section includes the most current smoking, or tobacco-related health factor, from the NH facility where the Encounter took place. Date/Time Current Smoking Status Comment [facility] Nov 19, 2023 10:00 AM VA-TOBACCO USER EVERY DAY [facility] [place] [facility] Tobacco Use History This section includes a history of the smoking, or tobacco-related health factors, that were collected on or before the date of the Encounter. The data comes from the NH facility where the Encounter took place. 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 [facility] [place] [facility] Nov 19, 2023 10:00 AM VA-TOBACCO USE MED NO [facility] [place] [facility] Nov 19, 2023 10:00 AM VA-TOBACCO USE WI 30 MIN OF WAKEUP [facility] [place] [facility] Nov 19, 2023 10:00 AM VA-TOBACCO USER EVERY DAY [facility] [place] [facility] February 10, 2023 01:00 PM ORYX ADMIT TOBACCO SCREEN YES [facility] [place] [facility] February 10, 2023 01:00 PM ORYX ADMIT TOBACCO USE CIGS GR 5D [facility] [place] [facility] February 10, 2023 01:00 PM ORYX DAILY TOBACCO COTTON INSPECTOR RECEIVED [facility] February 10, 2023 01:00 PM ORYX DAILY TOBACCO MEDS ORDERED [facility] Sep 02, 2022 08:00 AM VA-TOBACCO USE 30 YEARS OR MORE [facility] Sep 02, 2022 08:00 AM VA-TOBACCO USE ADVICE [facility] Sep 02, 2022 08:00 AM VA-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 [facility] Sep 02, 2022 08:00 AM VA-TOBACCO USE MED NOTIFY PROVIDER [facility] Sep 02, 2022 08:00 AM VA-TOBACCO USE WI 30 MIN OF WAKEUP [facility] Sep 02, 2022 08:00 AM VA-TOBACCO USER EVERY DAY [facility] Oct 12, 2016 09:13 AM QUIT TOBACCO USE 1-7 YEARS AGO [facility] [place] [facility] Sep 25, 2015 10:24 AM QUIT TOBACCO USE 1-7 YEARS AGO [facility] Oct 05, 2013 03:03 PM QUIT TOBACCO USE 1-7 YEARS AGO PT HAS QUIT LES THAN A YEAR AGO. [facility] [place] [facility] Oct 05, 2013 03:03 PM QUIT TOBACCO USE IN PAST YEAR [facility] Advance Directives: All historical and current Section Date Range: From patient's date of to the date document was created. This section includes ALL of a patient's completed or amended [place] Advance and Rescinded Directives. The entries below indicate that a directive exists for the patient, but an actual copy is not included with this document. The data comes from all NH facilities. Date Advance Directives Provider Source Mar 06, 2023 ADVANCE DIRECTIVE BEV PETTIT [facility] Mar 06, 2023 ADVANCE DIRECTIVE DISCUSSION BEV PETTIT Estephanie [facility] Apr 20, 2020 ADVANCE DIRECTIVE DISCUSSION [facility] Feb 24, 2020 ADVANCE DIRECTIVE DISCUSSION POOL FUENTES GUERITA [facility] Oct 30, 2016 ADVANCE DIRECTIVE KULDEEP FAM [facility] Radiology Reports: +/- 30 days of [...] the Encounter. The data comes from all [place] treatment facilities. Date/Time Radiology Report Provider Source Jul 14, 2024 11:13 AM KNEE 3 VIEWS (LEFT ): JEYSON SANCHEZ [id number] -1975 M Ex Date: JUL 14, 2024@11:13 Req Phys: OPAL REEVES Pat Loc: CWM/NO/PACT 4 (Req'g Loc) Img Loc: [facility] 1 Service: [place] [address] (Case [id number] COMPLETE) KNEE 3 VIEWS (LEFT) (RAD Detailed) CPT:17234 Reason for Study: 5 yrs of left knee pain Clinical History: Report Status: Verified Date Reported: JUL 14, 2024 Date Verified: JUL 14, 2024 Landscape Account Manager E-Sig:/ES/LIA JACINTO JR Report: Study: AP [...] Primary Interpreting Staff: LIA JACINTO JR, Radiologist (Landscape Account Manager) /LIA CARPENTER JR [facility] Encounter Notes: All associated encounter notes This section contains the clinical notes associated to the Encounter. Date/Time Encounter Note(s) Provider Source Jul 27, 2024 04:14 PM ADDENDUM: LOCAL TITLE: Addendum STANDARD TITLE: ADDENDUM DATE OF NOTE: JUL 27, 2024@16:14:03 ENTRY DATE: JUL 27, 2024@16:14:05 AUTHOR: LAUREN REEVES COSIGNER: URGENCY: STATUS: COMPLETED Rx called into [facility]. plz inform vet /brown/ OPAL REEVES MD PHYSICIAN Signed: 07/27/2024 16:14 Receipt Acknowledged By: 07/28/2024 11:09 /brown/ NEEMA YANCEY REGISTERED NURSE 07/28/2024 14:38 /es/ Clarita Valencia RN Primary Care Staff Nurse === --- Original Document --- 07/27/24 CCC: SCHEDULING ADMINISTRATION: Patient Demographics Patient Name: JEYSON SANCHEZ Patient Primary Phone: [phone] Patient Primary Address: [address] [place] [id number] Patient : 1975 Patient Age: 49 Caller/Recipient Relation to Patient: Self Administrative Administrative Note Reason: Medication Renewal [place] Medications Refill/Renewal Request: is requesting a prescription for Omeprazole called into [facility] [place] phone # [phone]. IMPORTANT: This note was created by [facility] staff. Please do not alert the staff member by adding them as a signer for future communications. Alerts are not monitored by this user. /brown/ ALISHA JUNIOR 1 [facility] Signed: 07/27/2024 16:02 Receipt Acknowledged By: 07/27/2024 16:13 /brown/ OPAL REEVES MD PHYSICIAN * AWAITING SIGNATURE * CLARITA VALENCIA 07/28/2024 ADDENDUM STATUS: COMPLETED RN called please see walk in note /es/ NEEMA YANCEY REGISTERED NURSE Signed: 07/28/2024 11:10 LAUREN REEVES [facility] [place] [facility] Jul 27, 2024 04:01 PM ADMINISTRATIVE NOTE: LOCAL TITLE: [facility]: SCHEDULING ADMINISTRATION STANDARD TITLE: ADMINISTRATIVE NOTE DATE OF NOTE: JUL 27, 2024@16:01:59 ENTRY DATE: JUL 27, 2024@16:01:59 AUTHOR: ALISHA ARGUETA EXP COSIGNER: URGENCY: STATUS: COMPLETED CCC: SCHEDULING ADMINISTRATION Has ADDENDA Patient Demographics Patient Name: JEYSON SANCHEZ Patient Primary Phone: [phone] Patient Primary Address: [address] [place] [address] Patient : 1975 Patient Age: 49 Caller/Recipient Relation to Patient: Self Administrative Administrative Note Reason: Medication Renewal [place] Medications Refill/Renewal Request: is requesting a prescription for Omeprazole called into [facility] [place] phone # [phone]. IMPORTANT: This note was created by [facility] staff. Please do not alert the staff member by adding them as a signer for future communications. Alerts are not monitored by this user. /brown/ ALISHA JUNIOR 1 [facility] Signed: 07/27/2024 16:02 Receipt Acknowledged [...] NURSE Signed: 07/28/2024 11:10 ALISHA ARGUETA [facility]
--- OUTSIDE RECORDS SUMMARY | 2024-09-03 11:35 | XMS_ITS | Encounter Summary ---
Author Name Department of Vetera ns Affairs ([place]) Organization Department of Vetera Affairs ([place]) Address [address] [place] [address] Care Team Providers Care Cabinetmaker Supervisor Name Role Phone MARTIN BOWERS Primary [...] AM PRIMARY Essential (primary) hypertension OPAL REEVES [place] [facility] [place] [facility] Jul 14, 2024 11:17 AM SECONDARY Family history of malignant neoplasm of digestive organs OPAL REEVES [place] [facility] [place] [facility] Jul 14, 2024 11:17 AM SECONDARY Hyperlipidemia, unspecified OPAL REEVES [place] [facility] [place] [facility] Jul 14, 2024 11:17 AM SECONDARY Pain in left knee JojoFerminGRUPOOPAL [facility] [place] [facility] Jul 14, 2024 11:17 AM SECONDARY Unilateral inguinal hernia, w/o obst or gangrene, recurrent AlessandroGRUPOOPAL [facility] Plan of Treatment: Future Appointments (+ 6 months) and Future Tests (+/- 45 days) The Plan of Treatment section includes future care activities for the patient [facility] This section includes future appointments and future orders which are active, pending or scheduled. Future Appointments This section includes appointments that were scheduled to occur 6 months from the date of the Encounter, up to a maximum of 20 appointments. The data comes from all [facility]. Appointment Date/Time Appointment Type Appointme nt Facility Name Jul 20, 2024 03:30 PM AMBULATORY - MEDICINE [facility] NTRL [place] [facility] Jul 26, 2024 01:30 PM AMBULATORY - MEDICINE [facility]L [place] [facility] Jul 28, 2024 10:30 AM AMBULATORY - PSYCHIATRY [place] [facility] [place] [facility] Aug 10, 2024 10:00 AM AMBULATORY - MEDICINE ME C [place]TRL [place] [facility] Aug 10, 2024 03:00 PM AMBULATORY - MEDICINE ME C [place]TRL [place] [facility] Sep 20, 2024 03:00 PM AMBULATORY - MEDICINE [facility] NTRL [place] [facility] Nov 10, 2024 10:00 AM AMBULATORY - MEDICINE [facility] Active, Pending, and Scheduled Orders This section includes a listing of several types of active, pending, and scheduled orders, including clinic medications orders, diagnostic test orders, procedure orders and consult orders; where the start date of the order is 45 days before the date of the Encounter or 45 days after the date of theEncounter. The data comes from all [facility]. Test Date/Time Test Type Test Details Facility Name Jun 09, 2024 01:58 PM Consult Order COMMUNITY CARE-GEN SURGERY Cons Oil Well Service Operator Helper's Choice [facility] Jun 09, 2024 03:46 PM Consult Order PSYCHOTHER APY BHIP/NHM OUTPT Cons Oil Well Service Operator Helper's Choice [facility] [place] [facility] Jul 14, 2024 10:55 AM Consult Order REHAB MEDI CINE/NHM OUTPT Cons Oil Well Service Operator Helper's Choice [facility] [place] [facility] Jul 19, 2024 11:25 AM Consult Order COMMUNITY CARE-DENTAL GENERAL Cons Oil Well Service Operator Helper's Choice [facility] [place] [facility] Jul 22, 2024 08:51 AM Consult Order COMMUNITY CARE-DENTAL GENERAL Cons Oil Well Service Operator Helper's Choice [facility] [place] [facility] Jul 22, 2024 01:51 PM Consult Order COMMUNITY CARE-DENTAL GENERAL Cons Oil Well Service Operator Helper's Choice [facility] Lab Results: +/- 30 days of the [...] Range Comment Jul 06, 2024 02:09 PM [facility] LIPID PANEL FASTING Specimen Type: SERUM No comment entered. Ordering Provider: PERRY LONG MD Report Released Date/Time: Jun 17, 2024 02:14 PM Reporting Lab: [address] [address] Performing Lab: [address] [address] CHOLESTEROL 251 mg/dL H TRIGLYCERIDE 70 mg/dL 0-150 LDL calculated 171 mg/dL H 0-129 CHOL/HDL 3.8 HDL CHOLESTEROL 66 mg/dL H 40-60 Jul 06, 2024 02:09 PM [facility] HEMOGLOBIN A1C PANEL Specimen Type: BLOOD [...] Jul 01, 2024 03:56 PM Reporting Lab: [facility] [place] [facility] [address] [facility] [address] Performing Lab: [facility] [address] [address] HEMOGLOBIN A1C 4.9 4.0-5.6 Jul 06, 2024 02:09 PM [facility] CALCIUM Specimen Type: SERUM No comment entered. Ordering Provider: Brian REEVES Report Released Date/Time: Jul 01, 2024 03:56 PM Reporting Lab: [facility] [address] [address] Performing Lab: [facility] [address] [address] CALCIUM 9.8 mg/dL 8.5-10.2 Jul 06, 2024 02:09 PM [facility] LIVER FUNCTION Specimen Type: SERUM No comment entered. Ordering Provider: Brian REEVES Report Released Date/Time: Jul 01, 2024 03:56 PM Reporting Lab: [facility] [address] [address] Performing Lab: [facility] [address] [address] PROTEIN,TOTAL 7.4 g/dL 6.0-8.3 ALBUMIN 4.4 g/dL 3.5-5.0 ALKALINE PHOSPHATASE 95 U/L 40-150 AST 21 U/L 5-34 ALT 34 U/L BILIRUBIN, TOTAL 0.4 mg/dL 0.2-1.2 Jul 06, 2024 02:09 PM [facility] BASIC METABOLIC PANEL (non-fasting) Specimen Type: SERUM No comment entered. Ordering Provider: Brian REEVES Report Released Date/Time: Jul 01, 2024 03:56 PM Reporting Lab: [facility]AT[facility] [address] [address] Performing Lab: [facility] [address] [address] UREA NITROGEN 19 mg/dL 7-25 GLUCOSE 90 mg/dL 65-100 SODIUM 139 mmol/L 135-145 POTASSIUM 4.8 mmol/L 3.5-5.0 CHLORIDE 104 mmol/L 100-110 CO2 26 meq/L 20-30 CREATININE, Serum 1.04 mg/dL 0.50-1.40 eGFR(CKD-EPI 2020) 87 mL/min >60 Jul 06, 2024 02:09 PM [facility] CBC AND DIFF (AUTO) Specimen Type: BLOOD No comment entered. Ordering Provider: Brian REEVES Report Released Date/Time: Jul 01, 2024 03:56 PM Reporting Lab: [address] [address] Performing Lab: [address] [address] WBC 8.69 10*3/uL 4.50-11.00 RBC 5.01 10*6/uL [...] 10:41 AM 98 90 145/84 19 97 [facility]TR [facility] Social History: Smoking Status (Most [...] took place. Date/Time Current Smoking Status Comment [facility] Nov 19, 2023 10:00 AM VA-TOBACCO USER EVERY DAY [facility] Tobacco Use History This section includes a history of the smoking, or tobacco-related health factors, that were collected on or before the date of the Encounter. The data comes from the [place] facility where the Encounter took place. Date/Time Smoking Status/Tobac co Use Comment Facility Nov 19, 2023 10:00 AM VA-TOBACCO USE ADVICE [facility] Nov 19, 2023 10:00 AM VA-TOBACCO USE TERRITORY OUTSIDE SALES MANAGER NO [place] [facility]TR [place] [facility] Nov 19, 2023 10:00 AM VA-TOBACCO USE MED NO [place] [facility]TR [place] [facility] Nov 19, 2023 10:00 AM VA-TOBACCO USE WI 30 MIN OF WAKEUP [facility] Nov 19, 2023 10:00 AM VA-TOBACCO USER EVERY DAY [place]L [place] [facility] February 10, 2023 01:00 PM ORYX ADMIT TOBACCO SCREEN YES [place] [facility]L [place] [facility] February 10, 2023 01:00 PM ORYX ADMIT TOBACCO USE CIGS GR 5D [facility] February 10, 2023 01:00 PM ORYX DAILY TOBACCO TERRITORY OUTSIDE SALES MANAGER RECEIVED [facility] February 10, 2023 01:00 PM ORYX DAILY TOBACCO MEDS ORDERED [facility] Sep 02, 2022 08:00 AM VA-TOBACCO USE 30 YEARS OR MORE [facility] Sep 02, 2022 08:00 AM VA-TOBACCO USE ADVICE [facility] Sep 02, 2022 08:00 AM VA-TOBACCO USE TERRITORY OUTSIDE SALES MANAGER YES [facility] Sep 02, 2022 08:00 AM VA-TOBACCO USE MED NOTIFY PROVIDER [facility] Sep 02, 2022 08:00 AM VA-TOBACCO USE WI 30 MIN OF WAKEUP [facility] Sep 02, 2022 08:00 AM VA-TOBACCO USER EVERY DAY [facility] Oct 12, 2016 09:13 AM QUIT TOBACCO USE 1-7 YEARS AGO [facility] Sep 25, 2015 10:24 AM QUIT TOBACCO USE 1-7 YEARS AGO [facility] Oct 05, 2013 03:03 PM QUIT TOBACCO USE 1-7 YEARS AGO PT HAS QUIT LES THAN A YEAR AGO. [facility] Oct 05, 2013 03:03 PM QUIT TOBACCO USE IN PAST YEAR [facility] Advance Directives: All historical and current [...] 06, 2023 ADVANCE DIRECTIVE BEV PETTIT [facility] Mar 06, 2023 ADVANCE DIRECTIVE DISCUSSION BEV PETTIT [facility] Apr 20, 2020 ADVANCE DIRECTIVE DISCUSSION ERUM MARTÍNEZ [facility] Feb 24, 2020 ADVANCE DIRECTIVE DISCUSSION POOL FUENTES [facility] Oct 30, 2016 ADVANCE DIRECTIVE FAMKULDEEP [facility] Radiology Reports: +/- 30 days of [...] KNEE 3 VIEWS (LEFT ): JEYSON SANCHEZ [id number] -1975 M Exm Date: JUL 14, 2024@11:13 Req Phys: OPAL REEVES Loc: CWM/NO/PACT 4 (Req'g Loc) [facility] Service: [place] [address] (Case [id number] COMPLETE) KNEE 3 VIEWS (LEFT) (RAD Detailed) CPT:01212 Reason for Study: 5 yrs of left knee pain Clinical History: Report Status: Verified Date Reported: JUL 14, 2024 Date Verified: JUL 14, 2024 Vehicle Damage Appraiser E-Sig:/ES/LIA JACINTO JR Report: Study: AP weight-bearing [...] Primary Interpreting Staff: LIA JACINTO JR, Radiologist (Vehicle Damage Appraiser) /LIA CARPENTER JR [facility] [place] [facility] Encounter Notes: All associated encounter [...] SANCHEZ, is a 49 yo WHITE MALE [place] who presents at the ME at [facility]. multiple problems HPI. anisa presents today with [...] PPD 14. Left knee pain (SNOMED CT [id number]) 15. 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 Avg Risk Colorectal Cancer Screen: AVERAGE RISK colorectal cancer screening is due based on information available to this clinical reminder Patient declined screening/surveillance. /brown/ OPAL REEVES MD PHYSICIAN Signed: 07/14/2024 11:17 AMELIA REEVES ME CNTRL [facility]
--- OUTSIDE RECORDS SUMMARY | 2024-09-03 11:35 | XMS_ITS ---
Author Name Department of Vetera ns Affairs ([place]) Organization Department of Vetera Affairs [place] Address [address] [place] [address] Care Team Providers Care Beauty Sales Advisor Name Role Phone MARTIN BOWERS Primary Care Provider OPAL Mckay Primary Care Provider Unajerome ailable Selected Encounter This section includes the information on record at [place] for the Encounter. Date/Time Encounter Type Encounter Description Reason Provider Source Jul 06, 2024 03:05 PM HC PRO PHONE CALL 5-10 MIN TELEPHONE PRIMARY CARE ICD-10-CM Z71.89 Other specified counseling CLARITA VALENCIA Azael Encounter Template Text not used by [place] Assessments - Encounter Diagnoses This section includes the primary and secondary diagnoses documented for the Encounter. Date/Time Primary/Secondary Diagnosis Diagnosis Name Provider Source Jul 06, 2024 03:05 PM PRIMARY Other specified counseling CLARITA VALENCIA [facility] Plan of Treatment: Future Appointments (+ 6 months) and Future Tests (+/- 45 days) The Plan of Treatment section includes future care activities for the patient from all [place] treatmentfacilities. This section includes future appointments and future orders which are active, pending or scheduled. Future Appointments This section includes appointments that were scheduled to occur 6 months from the date of the Encounter, up to a maximum of 20 appointments. The data comes from all [place] treatment facilities. Appointment Date/Time Appointment Type Appointme nt Facility Name Jul 13, 2024 02:30 PM AMBULATORY - MEDICINE [facility] [place] [place] [facility] Jul 14, 2024 10:30 AM AMBULATORY - MEDICINE [facility] C [place] [place] [facility] Jul 20, 2024 03:30 PM AMBULATORY - MEDICINE [facility] C [place] [place] [facility] Jul 26, 2024 01:30 PM AMBULATORY - MEDICINE [facility] C [place] [place] [facility] Jul 28, 2024 10:30 AM AMBULATORY - PSYCHIATRY [facility] [place] [facility] Aug 10, 2024 10:00 AM AMBULATORY - MEDICINE NM C NTRL [place] [facility] Aug 10, 2024 03:00 PM AMBULATORY - MEDICINE VA C [place]TRL [place] [facility] Sep 20, 2024 03:00 PM AMBULATORY - MEDICINE NM C NTRL [place] [facility] Nov 10, 2024 10:00 AM AMBULATORY - MEDICINE NM C NTRL [place] [facility] Active, Pending, and Scheduled Orders This section includes a listing of several types of active, pending, and scheduled orders, including clinic medications orders, diagnostic test orders, procedure orders and consult orders; where the start date of the order is 45 days before the date of the Encounter or 45 days after the date of theEncounter. The data comes from all [facility]. Test Date/Time Test Type Test Details Facility Name Jun 09, 2024 01:58 PM Consult Order COMMUNITY CARE-GEN SURGERY Cons Vacuum Frame Operator's Choice [facility] [place] [facility] Jun 09, 2024 03:46 PM Consult Order PSYCHOTHER APY BHIP/NHM OUTPT Cons Vacuum Frame Operator's Choice [facility] [place] [facility] Jul 14, 2024 10:55 AM Consult Order REHAB MEDI CINE/NHM OUTPT Cons Vacuum Frame Operator's Choice [facility] [place] [facility] Jul 19, 2024 11:25 AM Consult Order COMMUNITY CARE-DENTAL GENERAL Cons Vacuum Frame Operator's Choice [facility] [place] [facility] Jul 22, 2024 08:51 AM Consult Order COMMUNITY CARE-DENTAL GENERAL Cons Vacuum Frame Operator's Choice [facility] [place] [facility] Jul 22, 2024 01:51 PM Consult Order COMMUNITY [facility]-DENTAL GENERAL Cons Vacuum Frame Operator's Choice [facility] Lab Results: +/- 30 days of the encounter This section includes the Chemistry and Hematology Lab Results on record with [place] for the patient. Radiology Reports and Pathology Reports are provided separately, in subsequent sections. Lab Results This section contains the Chemistry/Hematology Results that were resulted 30 days before or 30 daysafter the date of the Encounter. Date/Time Source Result Type Result - Unit Interpretation Reference Range Comment Jul 06, 2024 02:09 PM [facility] LIPID PANEL FASTING Specimen Type: SERUM No comment entered. Ordering Provider: PERRY LONG MD Report Released Date/Time: Jun 17, 2024 02:14 PM Reporting Lab: [facility] [address] [address] Performing Lab: [address] [address] CHOLESTEROL 251 mg/dL H TRIGLYCERIDE 70 mg/dL 0-150 LDL calculated 171 mg/dL H 0-129 CHOL/HDL 3.8 HDL CHOLESTEROL 66 mg/dL H 40-60 Jul 06, 2024 02:09 PM [facility] CALCIUM Specimen Type: SERUM No comment entered. Ordering Provider: Brian REEVES Report Released Date/Time: Jul 01, 2024 03:56 PM Reporting Lab: [facility] [address] [facility] [address] Performing Lab: [facility] [address] CALCIUM 9.8 mg/dL 8.5-10.2 Jul 06, 2024 02:09 PM [facility] LIVER FUNCTION Specimen Type: SERUM No comment entered. Ordering Provider: Brian REEVES Report Released Date/Time: Jul 01, 2024 03:56 PM Reporting Lab: [address] [address] Performing Lab: [address] [address] PROTEIN,TOTAL 7.4 g/dL 6.0-8.3 ALBUMIN 4.4 g/dL 3.5-5.0 ALKALINE PHOSPHATASE 95 U/L 40-150 AST 21 U/L 5-34 ALT 34 U/L BILIRUBIN, TOTAL 0.4 mg/dL 0.2-1.2 Jul 06, 2024 02:09 PM [facility] HEMOGLOBIN A1C PANEL Specimen Type: BLOOD [...] Jul 01, 2024 03:56 PM Reporting Lab: [address] [address] Performing Lab: [address] [address] HEMOGLOBIN A1C 4.9 4.0-5.6 Jul 06, 2024 02:09 PM [facility] BASIC METABOLIC PANEL (non-fasting) Specimen Type: SERUM No comment entered. Ordering Provider: Brian REEVES Report Released Date/Time: Jul 01, 2024 03:56 PM Reporting Lab: [address] [address] Performing Lab: [address] [address] UREA NITROGEN 19 mg/dL 7-25 GLUCOSE 90 mg/dL 65-100 SODIUM 139 mmol/L 135-145 POTASSIUM 4.8 mmol/L 3.5-5.0 CHLORIDE 104 mmol/L 100-110 CO2 26 meq/L 20-30 CREATININE, Serum 1.04 mg/dL 0.50-1.40 eGFR(CKD-EPI 2020) 87 mL/min >60 Jul 06, 2024 02:09 PM [facility] CBC AND DIFF (AUTO) Specimen Type: BLOOD No comment entered. Ordering Provider: Brian REEVES Report Released Date/Time: Jul 01, 2024 03:56 PM Reporting Lab: [facility] [address] [facility] [address] Performing Lab: [facility] [address] [facility] [address] WBC 8.69 10*3/uL 4.50-11.00 RBC 5.01 10*6/uL [...] and tobacco- related health factors from the [place] facility where the Encounter took place. Current Smoking Status This section includes the most current smoking, or tobacco-related health factor, from the [place] facility where the Encounter took place. Date/Time Current Smoking Status Comment Gino hanson Nov 19, 2023 10:00 AM VA-TOBACCO USE WI 30 MIN OF WAKEUP [facility] Tobacco Use History This section includes a history of the smoking, or tobacco-related health factors, that were collected on or before the date of the Encounter. The data comes from the [place] facility where the Encounter took place. Date/Time Smoking Status/Tobac co Use Comment Facility Nov 19, 2023 10:00 AM VA-TOBACCO USE ADVICE [place] CNTRL [place] [facility] Nov 19, 2023 10:00 AM VA-TOBACCO USE SUPPLY PLANNER NO [place] CNTRL [place] [facility] Nov 19, 2023 10:00 AM VA-TOBACCO USE MED NO [place] CNTRL [place] [facility] Nov 19, 2023 10:00 AM VA-TOBACCO USE WI 30 MIN OF WAKEUP [place] CNTRL [place] [facility] Nov 19, 2023 10:00 AM VA-TOBACCO USER EVERY DAY [place] CNTRL [place] [facility] February 10, 2023 01:00 PM ORYX ADMIT TOBACCO SCREEN YES [place] CNTRL [place] [facility] February 10, 2023 01:00 PM ORYX ADMIT TOBACCO USE CIGS GR 5D [place] CNTRL [place] [facility] February 10, 2023 01:00 PM ORYX DAILY TOBACCO SUPPLY PLANNER RECEIVED [place] CNTRL [place] [facility] February 10, 2023 01:00 PM ORYX DAILY TOBACCO MEDS ORDERED [place] CNTRL [place] [facility] Sep 02, 2022 08:00 AM VA-TOBACCO USE 30 YEARS OR MORE [place] CNTRL [place] [facility] Sep 02, 2022 08:00 AM VA-TOBACCO USE ADVICE [place] CNTRL [place] [facility] Sep 02, 2022 08:00 AM VA-TOBACCO USE SUPPLY PLANNER YES [place] CNTRL [place] [facility] Sep 02, 2022 08:00 AM VA-TOBACCO USE MED NOTIFY PROVIDER [place] CNTRL [place] [facility] Sep 02, 2022 08:00 AM VA-TOBACCO USE WI 30 MIN OF WAKEUP [place] CNTRL [place] [facility] Sep 02, 2022 08:00 AM VA-TOBACCO USER EVERY DAY [facility] Oct 12, 2016 09:13 AM QUIT TOBACCO USE 1-7 YEARS AGO [facility] Sep 25, 2015 10:24 AM QUIT TOBACCO USE 1-7 YEARS AGO [facility] Oct 05, 2013 03:03 PM QUIT TOBACCO USE 1-7 YEARS AGO PT HAS QUIT LES THAN A YEAR AGO. [facility] Oct 05, 2013 03:03 PM QUIT TOBACCO USE IN PAST YEAR [facility] Advance Directives: All historical and current Section Date Range: From patient's date of to the date document was created. This section includes ALL of a patient's completed or amended [place] Advance and Rescinded Directives. The entries below indicate that a directive exists for the patient, but an actual copy is not included with this document. The data comes from all [place] facilities. Date Advance Directives Provider Source Mar 06, 2023 ADVANCE DIRECTIVE BEV PETTIT [facility] Mar 06, 2023 ADVANCE DIRECTIVE DISCUSSION BEV PETTIT [facility] Apr 20, 2020 ADVANCE DIRECTIVE DISCUSSION ERUM MARTÍNEZ [facility] Feb 24, 2020 ADVANCE DIRECTIVE DISCUSSION POOL FUENTES [facility] Oct 30, 2016 ADVANCE DIRECTIVE KULDEEP FAM [facility] Radiology Reports: +/- 30 days of [...] the Encounter. The data comes from all [place] treatment facilities. Date/Time Radiology Report Provider Source Jul 14, 2024 11:13 AM KNEE 3 VIEWS (LEFT ): JEYSON SANCHEZ [id number] -1975 M Exm Date: JUL 14, 2024@11:13 Req Phys: D'GRUPO,OPAL Levine Sandra Loc: CWM/NO/PACT 4 (Req'g Loc) [facility] Service: [place] [address] (Case 198 COMPLETE) KNEE 3 VIEWS (LEFT) (RAD Detailed) CPT:61928 Reason for Study: 5 yrs of left knee pain Clinical History: Report Status: Verified Date Reported: JUL 14, 2024 Date Verified: JUL 14, 2024 Backbreaker E-Sig:/ES/LIA JACINTO JR Report: Study: AP weight-bearing [...] Primary Interpreting Staff: LIA JACINTO JR, Radiologist (Backbreaker) /LIA CARPENTER JR [facility] Encounter Notes: All associated encounter notes [...] re: to alert today re: pain control. Direct Care Provider went over what PCP reccomended for pain management as indicated in PCP addenum on SM: 07/01/2024 ADDENDUM STATUS: COMPLETED vet has not had labs in more than one year. needs updated labs to insure safety of following plan for pain control. 1. labs this week in [place] 2. vet can use BOTH indocin 50 mg bid AND tylenol 1000 mg tid for pain contro 3. vet will have f/u w/ PCP in august. when is hernia surgery? Vet did labs today and has not received medication in the mail yet. It should arrive in next day or so. Direct Care Provider also sent email to CC re: general Surgery consult and asked if they could please reach out to Vet directly re: status of consult and appt. Vet appreciative of information/update. /brown/ Clarita Valencia RN Primary Care Staff Nurse Signed: 07/06/2024 15:28 CLARITA VALENCIA [facility]
--- OUTSIDE RECORDS SUMMARY | 2024-09-03 11:35 | XMS_ITS ---
Author Name [place] Organization [place] Address [address] [place] [address] Care Team Providers Care Route Sales Associate Name Role Phone MARTIN BOWERS Primary Care Provider OPAL Mckay Primary Care Provider Unav ailable Selected Encounter This section includes the information on record at [place] for the Encounter. Date/Time Encounter Type Encounter Description Reason Pro vider Source Jul 26, 2024 03:02 PM Outpatient Encounter PRIMARY CARE/MEDICINE IHE Encounter Template Text not used by [place] Plan of Treatment: Future Appointments (+ 6 [...] 28, 2024 10:30 AM AMBULATORY - PSYCHIATRY [place] [facility] Aug 10, 2024 10:00 AM AMBULATORY - MEDICINE [facility] [place] [facility] Aug 10, 2024 03:00 PM AMBULATORY - MEDICINE [facility] Sep 20, 2024 03:00 PM AMBULATORY - MEDICINE [facility] NTRL TRN [facility] Nov 10, 2024 10:00 AM [facility] Active, Pending, and Scheduled Orders This section includes a listing of several types of active, pending, and scheduled orders, including clinic medications orders, diagnostic test orders, procedure orders and consult orders; where the start date of the order is 45 days before the date of the Encounter or 45 days after the date of theEncounter. The data comes from all [place] treatment facilities. Test Date/Time Test Type Test Details Facility Name Jul 14, 2024 10:55 AM Consult Order REHAB MEDI CINE/NHM OUTPT Cons Scallop Cutter Machine's Choice [facility] Jul 19, 2024 11:25 AM Consult Order COMMUNITY CARE-DENTAL GENERAL Cons [place] Cutter Machine's Choice [facility] Jul 22, 2024 08:51 AM Consult Order COMMUNITY CARE-DENTAL GENERAL Cons [place] Cutter Machine's Choice [facility] Jul 22, 2024 01:51 PM Consult Order COMMUNITY CARE-DENTAL GENERAL Cons [place] Cutter Machine's Choice [facility] Lab Results: +/- 30 days of the encounter This section includes the Chemistry and Hematology Lab Results on record with [place] for the patient. Radiology Reports and Pathology Reports are provided separately, in subsequent sections. Lab Results This section contains the Chemistry/Hematology Results that were resulted 30 days before or 30 daysafter the date of the Encounter. Date/Time Source Result Type Result - Unit Interpretation Reference Range Comment Jul 06, 2024 02:09 PM [facility] LIPID PANEL FASTING Specimen Type: SERUM No comment entered. Ordering Provider: PERRY LONG MD Report Released Date/Time: Jun 17, 2024 02:14 PM Reporting Lab: [address] [address] Performing Lab: [address] [address] CHOLESTEROL 251 mg/dL H TRIGLYCERIDE 70 mg/dL [...] 01, 2024 03:56 PM Reporting Lab: [address] [address] Performing Lab: [address] [address] HEMOGLOBIN A1C 4.9 4.0-5.6 Jul 06, 2024 02:09 PM [facility] CALCIUM Specimen Type: SERUM No comment entered. Ordering Provider: Brian REEVES Report Released Date/Time: Jul 01, 2024 03:56 PM Reporting Lab: [address] [address] Performing Lab: [address] [address] CALCIUM 9.8 mg/dL 8.5-10.2 Jul 06, 2024 02:09 PM [facility] LIVER FUNCTION Specimen Type: SERUM No comment entered. Ordering Provider: Brian REEVES Report Released Date/Time: Jul 01, 2024 03:56 PM Reporting Lab: [address] [address] Performing Lab: [address] [address] PROTEIN,TOTAL 7.4 g/dL 6.0-8.3 ALBUMIN 4.4 g/dL 3.5-5.0 ALKALINE PHOSPHATASE 95 U/L 40-150 AST 21 U/L 5-34 ALT 34 U/L BILIRUBIN, TOTAL 0.4 mg/dL 0.2-1.2 Jul 06, 2024 02:09 PM [facility] BASIC METABOLIC PANEL (non-fasting) Specimen Type: SERUM No comment entered. Ordering Provider: Brian REEVES Report Released Date/Time: Jul 01, 2024 03:56 PM Reporting Lab: [address] [address] Performing Lab: [address] [address] UREA NITROGEN 19 mg/dL 7-25 GLUCOSE 90 [...] 01, 2024 03:56 PM Reporting Lab: [address] [address] Performing Lab: [address] [address] WBC 8.69 10*3/uL 4.50-11.00 RBC 5.01 10*6/uL [...] place. Date/Time Current Smoking Status Comment [facility] Nov 19, 2023 10:00 AM VA-TOBACCO [place] 30 MIN OF WAKEUP [facility] Tobacco Use History This section includes a history of the smoking, or tobacco-related health factors, that were collected on or before the date of the Encounter. The data comes from the [place] facility where the Encounter took place. Date/Time Smoking Status/Tobac co Use Comment Facility Nov 19, 2023 10:00 AM VA-TOBACCO USE ADVICE [place] [facility] Nov 19, 2023 10:00 AM VA-TOBACCO USE TECHNOLOGY TRAINING ASSOCIATE NO [place] [facility] Nov 19, 2023 10:00 AM VA-TOBACCO USE MED NO [place] [facility] Nov 19, 2023 10:00 AM VA-TOBACCO USE [place] 30 MIN OF WAKEUP [place] [facility] Nov 19, 2023 10:00 AM VA-TOBACCO USER EVERY DAY [place] [facility] February 10, 2023 01:00 PM ORYX ADMIT TOBACCO SCREEN YES [facility] [place] [facility] February 10, 2023 01:00 PM ORYX ADMIT TOBACCO USE CIGS GR 5D [facility] February 10, 2023 01:00 PM ORYX DAILY TOBACCO TECHNOLOGY TRAINING ASSOCIATE RECEIVED [facility] February 10, 2023 01:00 PM ORYX DAILY TOBACCO MEDS ORDERED [facility] Sep 02, 2022 08:00 AM VA-TOBACCO USE 30 YEARS OR MORE [facility] Sep 02, 2022 08:00 AM VA-TOBACCO USE ADVICE [facility] Sep 02, 2022 08:00 AM VA-TOBACCO USE TECHNOLOGY TRAINING ASSOCIATE YES [facility] Sep 02, 2022 08:00 AM VA-TOBACCO USE MED NOTIFY PROVIDER [facility] Sep 02, 2022 08:00 AM VA-TOBACCO USE [place] 30 MIN OF WAKEUP [facility] Sep 02, 2022 08:00 AM VA-TOBACCO USER EVERY DAY [facility] Oct 12, 2016 09:13 AM QUIT TOBACCO USE 1-7 YEARS AGO [facility] Sep 25, 2015 10:24 AM QUIT TOBACCO USE 1-7 YEARS AGO [facility] Oct 05, 2013 03:03 PM QUIT TOBACCO USE 1-7 YEARS AGO PT HAS QUIT LES THAN A YEAR AGO. [facility] Oct 05, 2013 03:03 PM QUIT TOBACCO USE IN PAST YEAR [facility] Advance Directives: All historical and current Section [...] Mar 06, 2023 ADVANCE DIRECTIVE BEV PETTIT [facility] Mar 06, 2023 ADVANCE DIRECTIVE DISCUSSION BEV PETTIT [facility] Apr 20, 2020 ADVANCE DIRECTIVE DISCUSSION ERUM MARTÍNEZ [facility] Feb 24, 2020 ADVANCE DIRECTIVE DISCUSSION POOL FUENTES [facility] Oct 30, 2016 [...] the Encounter. The data comes from all [place] treatment facilities. Date/Time Radiology Report Provider Source Jul 14, 2024 11:13 AM KNEE 3 VIEWS (LEFT ): JEYSON SANCHEZ [id number] -1975 M Ex Date: JUL 14, 2024@11:13 Req Phys: OPAL REEVES Pat Loc: CWM/NO/PACT 4 (Req'g Loc) Img Loc: [facility] 1 Service: [place] [address] (Case [id number] COMPLETE) KNEE 3 VIEWS (LEFT) (RAD Detailed) CPT:36204 Reason for Study: 5 yrs of left knee pain Clinical History: Report Status: Verified Date Reported: JUL 14, 2024 Date Verified: JUL 14, 2024 Certified Travel Counselor E-Sig:/ES/LIA JACINTO JR Report: Study: AP weight-bearing [...] Primary Interpreting Staff: LIA JACINTO JR, Radiologist (Certified Travel Counselor) /LIA CARPENTER JR [place] [facility] [facility] Encounter Notes: All associated encounter notes This [...] 07/28/2024 11:12 Receipt Acknowledged By: 07/28/2024 16:32 /es/ OPAL REEVES MD PHYSICIAN ========= --- Original Document --- 07/26/24 WALK-IN NOTE PRIMARY CARE (T): <====Click to Start Advanced Medical Support presents to the Primary Care clinic with the following request: [ ]Medication Renewal/Refill [ ]Consultation with Team RN [ ]Symptoms [ X ]Other-[place] req med stronger then Aspirin for pain. Will you need appt. [place] seen 07/14 The states they are: [ [...] 10:00 CWM/NO/PACT 4 /es/ QUINN WONG Advanced Corporate Strategist Signed: 07/26/2024 15:03 Receipt Acknowledged By: 07/26/2024 [...] /travon Valencia RN Primary Care Staff Nurse NEEMA YANCEY [place] [facility] Jul 26, 2024 04:35 PM ADDENDUM: LOCAL [...] (T): <====Click to Start Advanced Medical Support [place] presents to the Primary Care clinic with the following request: [ ]Medication Renewal/Refill [ ]Consultation with Team RN [ ]Symptoms [ X ]Other-[place] req med stronger then Aspirin for pain. Will you need appt. seen 07/14 The [place] states they are: [ ]Waiting [ X [...] 10:00 CWM/NO/PACT 4 /es/ QUINN WONG Advanced Corporate Strategist Signed: 07/26/2024 15:03 Receipt Acknowledged By: 07/26/2024 16:34 /es/ OPAL REEVES MD PHYSICIAN 07/28/2024 ADDENDUM STATUS: COMPLETED RN updated updated about this and offered pain clinc is upset but agrees to pain clinc consult and terminates call /es/ NEEMA YANCEY REGISTERED NURSE Signed: 07/28/2024 11:12 Receipt Acknowledged By: * AWAITING SIGNATURE * OPAL REEVES MICHAE L G [place] [facility] [facility] Jul 26, 2024 03:02 PM PRIMARY CARE [...] Aspirin for pain. Will you need appt. [place] seen 07/14 The states they are: [ ]Waiting [ X ]Not Waiting No Walk in visit scheduled with PACT Nurse [ X ] At this encounter the 's demographics were verified. [ X ] At this encounter the [place]'s Insurance information was verified. [ X ] At this encounter the below scheduled visits for the [place] were discussed and appointment reminder card was offered. Future appointments: 07/28/2024 10:30 CWM/NO/MHC/ETHAN 08/10/2024 10:00 CWM/NO/PODIATRY A 08/24/2024 10:00 NHM DENTAL DMD 2 08/24/2024 11:30 NHM/OPTOMETRY/FRANCIS/ 08/24/2024 14:00 CWM/NO/MED REHAB 1 PA 09/20/2024 15:00 CWM/NO/PACT 4 11/10/2024 10:00 CWM/NO/PACT 4 /es/ QUINN WONG Advanced Corporate Strategist Signed: 07/26/2024 15:03 Receipt Acknowledged By: 07/26/2024 [...] AWAITING SIGNATURE * OPAL REEVES ROBIN M [place] [facility]
--- OUTSIDE RECORDS SUMMARY | 2024-09-03 11:35 | XMS_ITS | Encounter Summary ---
Author Name Department [place] Organization [place] Address [address] [place] [address] Care Team Providers Care Drying Tumbler Operator Name Role Phone MARTIN BOWERS Primary Care Provider OPAL Mckay Primary Care Provider Unajerome ailable Selected Encounter This section includes the information on record at [place] for the Encounter. Date/Time Encounter Type Encounter Description Reason Provider Source Jul 28, 2024 10:30 AM OFFICE O/P EST LOW 20 [facility] - IND ICD-10-CM F25.0 Schizoaffective disorder, bipolar type DERECK LONG MD [facility] Encounter Template Text not used by [place] Assessments - Encounter Diagnoses This section includes the primary and secondary diagnoses documented for the Encounter. Date/Time Primary/Secondary Diagnosis Diagnosis Name Provider Source Jul 28, 2024 10:54 AM PRIMARY Schizoaffective disorder, bipolar type [facility]ECK LONG [facility] Jul 28, 2024 10:54 AM SECONDARY Alcohol dependence with alcohol-induced mood disorder [facility]K LONG [facility] Jul 28, 2024 10:54 AM SECONDARY Insomnia, unspecified DERECK LONG MD [facility] Plan of Treatment: Future Appointments (+ 6 months) and Future Tests (+/- 45 days) The Plan of Treatment section includes future care activities for the patient from [facility] [place] [facility] This section includes future appointments [...] 10, 2024 10:00 AM AMBULATORY - MEDICINE [place] C NTRL [place]STR[place] [facility] Aug 10, 2024 03:00 PM AMBULATORY MEDICINE [place] C [place] [facility] Sep 20, 2024 03:00 PM AMBULATORY MEDICINE [place] C [facility] Nov 10, 2024 10:00 AM AMBULATORY MEDICINE [facility] N[facility] Active, Pending, and Scheduled Orders This section includes a listing of several types of active, pending, and scheduled orders, including clinic medications orders, diagnostic test orders, procedure orders and consult orders; where the start date of the order is 45 days before the date of the Encounter or 45 days after the date of theEncounter. The data comes from all [place] treatment [facility]. Test Date/Time Test Type Test Details Facility Name Jul 14, 2024 10:55 AM Consult Order REHAB MEDI CINE/NHM OUTPT Cons Mobile Electronics Installer's Choice [facility] Jul 19, 2024 11:25 AM Consult Order COMMUNITY CARE-DENTAL GENERAL Cons Mobile Electronics Installer's Choice [place] [facility] Jul 22, 2024 08:51 AM Consult Order COMMUNITY CARE-DENTAL GENERAL Cons Mobile Electronics Installer's Choice [place] [facility] Jul 22, 2024 01:51 PM Consult Order COMMUNITY CARE-DENTAL GENERAL Cons Mobile Electronics Installer's Choice [facility] Lab Results: +/- 30 days of [...] Range Comment Jul 06, 2024 02:09 PM [facility] LIPID PANEL FASTING Specimen Type: SERUM No comment entered. Ordering Provider: PERRY LONG MD Report Released Date/Time: Jun 17, 2024 02:14 PM Reporting Lab: [facility] [address] [address] Performing Lab: [facility] [address] [address] CHOLESTEROL 251 mg/dL H TRIGLYCERIDE 70 mg/dL 0-150 LDL calculated 171 mg/dL H 0-129 CHOL/HDL 3.8 HDL CHOLESTEROL 66 mg/dL H 40-60 Jul 06, 2024 02:09 PM [facility] HEMOGLOBIN A1C PANEL Specimen Type: BLOOD [...] Jul 01, 2024 03:56 PM Reporting Lab: [facility] [address] [address] Performing Lab: [address] [address] HEMOGLOBIN A1C 4.9 4.0-5.6 Jul 06, 2024 02:09 PM [facility] CALCIUM Specimen Type: SERUM No comment entered. Ordering Provider: Brian REEVES Report Released Date/Time: Jul 01, 2024 03:56 PM Reporting Lab: [facility] [address] [address] Performing Lab: [address] [address] CALCIUM 9.8 mg/dL 8.5-10.2 Jul 06, 2024 02:09 PM [facility] LIVER FUNCTION Specimen Type: SERUM No comment entered. Ordering Provider: Brian REEVES Report Released Date/Time: Jul 01, 2024 03:56 PM Reporting Lab: [facility] [address] [address] Performing Lab: [address] [address] PROTEIN,TOTAL 7.4 g/dL 6.0-8.3 ALBUMIN 4.4 g/dL 3.5-5.0 ALKALINE PHOSPHATASE 95 U/L 40-150 AST 21 U/L 5-34 ALT 34 U/L BILIRUBIN, TOTAL 0.4 mg/dL 0.2-1.2 Jul 06, 2024 02:09 PM [facility] BASIC METABOLIC PANEL (non-fasting) Specimen Type: SERUM No comment entered. Ordering Provider: Brian REEVES Report Released Date/Time: Jul 01, 2024 03:56 PM Reporting Lab: [address] [address] Performing Lab: [address] [address] UREA NITROGEN 19 mg/dL 7-25 GLUCOSE 90 mg/dL 65-100 SODIUM 139 mmol/L 135-145 POTASSIUM 4.8 mmol/L 3.5-5.0 CHLORIDE 104 mmol/L 100-110 CO2 26 meq/L 20-30 CREATININE, Serum 1.04 mg/dL 0.50-1.40 eGFR(CKD-EPI 2020) 87 mL/min >60 Jul 06, 2024 02:09 PM [facility] CBC AND DIFF (AUTO) Specimen Type: BLOOD No comment entered. Ordering Provider: Brian REEVES Report Released Date/Time: Jul 01, 2024 03:56 PM Reporting Lab: [facility] [address] [address] Performing Lab: [address] [address] WBC 8.69 10*3/uL 4.50-11.00 RBC 5.01 10*6/uL [...] MIN OF WAKEUP [place] [facility] [facility] Tobacco Use History This section includes a history of the smoking, or tobacco-related health factors, that were collected on or before the date of the Encounter. The data comes from the [place] facility where the Encounter took place. Date/Time Smoking Status/Tobac co Use Comment Facility Nov 19, 2023 10:00 AM VA-TOBACCO USE ADVICE [place] [facility] Nov 19, 2023 10:00 AM VA-TOBACCO USE RN WELLNESS NO [place] [facility] Nov 19, 2023 10:00 AM VA-TOBACCO USE MED NO [place] [facility] Nov 19, 2023 10:00 AM VA-TOBACCO USE WI 30 MIN OF WAKEUP [place] [facility] Nov 19, 2023 10:00 AM VA-TOBACCO USER EVERY DAY [place] [facility] February 10, 2023 01:00 PM ORYX ADMIT TOBACCO SCREEN YES [place] [facility] February 10, 2023 01:00 PM ORYX ADMIT TOBACCO USE CIGS GR 5D [place] [facility] February 10, 2023 01:00 PM ORYX DAILY TOBACCO RN WELLNESS RECEIVED [place] [facility] February 10, 2023 01:00 PM ORYX DAILY TOBACCO MEDS ORDERED [place] [facility] [facility] Sep 02, 2022 08:00 AM VA-TOBACCO USE 30 YEARS OR MORE [place] [facility] Sep 02, 2022 08:00 AM VA-TOBACCO USE ADVICE [place] [facility] Sep 02, 2022 08:00 AM VA-TOBACCO USE RN WELLNESS YES [place] [facility] Sep 02, 2022 08:00 AM VA-TOBACCO USE MED NOTIFY PROVIDER [place] [facility] Sep 02, 2022 08:00 AM VA-TOBACCO USE WI 30 MIN OF WAKEUP [place] [facility] Sep 02, 2022 08:00 AM VA-TOBACCO USER EVERY DAY [place] [facility] Oct 12, 2016 09:13 AM QUIT TOBACCO USE 1-7 YEARS AGO [place] [facility] Sep 25, 2015 10:24 AM QUIT TOBACCO USE 1-7 YEARS AGO [place] [facility] Oct 05, 2013 03:03 PM QUIT TOBACCO USE 1-7 YEARS AGO PT HAS QUIT LES THAN A YEAR AGO. [facility] [place] [facility] Oct 05, 2013 03:03 PM QUIT TOBACCO USE IN PAST YEAR [facility] Advance Directives: All historical and current [...] Mar 06, 2023 ADVANCE DIRECTIVE BEV PETTIT [facility] Mar 06, 2023 ADVANCE DIRECTIVE DISCUSSION BEV PETTIT [facility] Apr 20, 2020 ADVANCE DIRECTIVE DISCUSSION ERUM MARTÍNEZ [facility] Feb 24, 2020 ADVANCE DIRECTIVE DISCUSSION POOL F[facility]ES [facility] Oct 30, 2016 ADVANCE DIRECTIVE KULDEEP FAM [facility] Radiology Reports: +/- 30 days of [...] 11:13 AM KNEE 3 VIEWS (LEFT ): KIRBY SANCHEZSON TIERA [id number] -[id number] M Exm Date: JUL 14, 2024@11:13 Req Phys: OPAL REEVES Loc: CWM/NO/PACT 4 (Req'g Loc) Im Loc: [facility] 1 Service: Unknown [facility] [place] [address] (Case [id number] COMPLETE) KNEE 3 VIEWS (LEFT) (RAD Detailed) CPT:74588 Reason for Study: 5 yrs of left knee pain Clinical History: Report Status: Verified Date Reported: JUL 14, 2024 Date Verified: JUL 14, 2024 Water Purification Chemist E-Sig:/ES/LIA JACINTO JR Report: Study: AP weight-bearing [...] Primary Interpreting Staff: LIA JACINTO JR, Radiologist (Water Purification Chemist) /LIA CARPENTER JR [facility] Encounter Notes: All associated encounter notes This section contains the clinical notes associated to the Encounter. Date/Time Encounter Note(s) Provider Source Jul 28, 2024 07:54 AM TELEHEALTH NOTE: LOCAL TITLE: [place] VIDEO CONNECT NOTE STANDARD TITLE: TELEHEALTH NOTE [...] I have an abscessed tooth. I'm in [place] now. Anisa is taking 300mg of quetiapine and 150mg of trazodone and would like to stay at this dose. Continues with anxiety related to upcoming surgery. Anisa wasn't comfortable when I was in [place] and now in [place] living with parents. No alcohol or substance [...] retiring at the end of the month. AIMS Testing: AIMS (Mental Health Instrument) The patient was evaluated for symptoms of tardive dyskinesia using the AIMS. Total score for items 1-7: 0 BMI>30/>24.99 High Risk: Patient declines to discuss weight management. Patient declined weight discussion. Discussed revisiting at a future visit. /brown/ JAMES LONG JR, MD STAFF PSYCHIATRIST Signed: 07/28/2024 10:54 JAMES LONG MD [place] CN[facility]
--- OUTSIDE RECORDS SUMMARY | 2024-09-03 11:36 | XMS_ITS | Encounter Summary ---
Author Name Department of Vetera Affairs ([place] Organization [place] Address [address] [place] [address] Care Team Providers Care Production Line Operator Name Role Phone MARTIN BOWERS Primary Care Provider OPAL Mckay Primary Care Provider Unav ailable Selected Encounter This section includes the information on record at [place] for the Encounter. Date/Time Encounter Type Encounter Description Reason Pro vider Source Jul 28, 2024 12:17 PM Outpatient Encounter PRIMARY CARE/MEDICINE IHE Encounter Template Text not used by [place] Plan of Treatment: Future Appointments (+ 6 [...] - MEDICINE IN [place] [facility] [place] [facility] Aug 10, 2024 03:00 PM AMBULATORY - MEDICINE [facility] [place] [facility] Sep 20, 2024 03:00 PM AMBULATORY - MEDICINE [facility] [place] [facility] Nov 10, 2024 10:00 AM AMBULATORY - MEDICINE [facility] Active, Pending, and Scheduled Orders [...] Consult Order REHAB MEDI CINE/[facility]M OUTPT Cons Medical Chief Technician's Choice [facility] Jul 19, 2024 11:25 AM Consult Order COMMUNITY CARE-DENTAL GENERAL Cons Medical Chief Technician's Choice [facility] Jul 22, 2024 08:51 AM Consult Order COMMUNITY CARE-DENTAL GENERAL Cons Medical Chief Technician's Choice [facility] Jul 22, 2024 01:51 PM Consult Order COMMUNITY CARE-DENTAL GENERAL Cons Medical Chief Technician's Choice [facility] Lab Results: +/- 30 days of the encounter This section includes the Chemistry and Hematology Lab Results on record with [place] for the patient. Radiology Reports and Pathology Reports are provided separately, in subsequent sections. Lab Results This section contains the Chemistry/Hematology Results that were resulted 30 days before or 30 daysafter the date of the Encounter. Date/Time Source Result Type Result - Unit Interpretation Reference Range Comment Jul 06, 2024 02:09 PM [facility] LIPID PANEL FASTING Specimen Type: SERUM No comment entered. Ordering Provider: PERRY LONG MD Report Released Date/Time: Jun 17, 2024 02:14 PM Reporting Lab: [address] [address] Performing Lab: [address] [address] CHOLESTEROL 251 mg/dL H TRIGLYCERIDE 70 mg/dL 0-150 LDL calculated 171 mg/dL H 0-129 CHOL/HDL 3.8 HDL CHOLESTEROL 66 mg/dL H 40-60 Jul 06, 2024 02:09 PM [facility] CALCIUM Specimen Type: SERUM No comment entered. Ordering Provider: Brian REEVES Report Released Date/Time: Jul 01, 2024 03:56 PM Reporting [facility] [address] [address] Performing Lab: [facility] [address] [address] CALCIUM 9.8 mg/dL 8.5-10.2 Jul 06, 2024 02:09 PM [facility] HEMOGLOBIN A1C PANEL Specimen Type: BLOOD Comment: [...] Jul 01, 2024 03:56 PM Reporting Lab: [facility] [address] [address] Performing Lab: [address] [address] HEMOGLOBIN A1C 4.9 4.0-5.6 Jul 06, 2024 02:09 PM [facility] LIVER FUNCTION Specimen Type: SERUM No comment entered. Ordering Provider: Brian REEVES Report Released Date/Time: Jul 01, 2024 03:56 PM Reporting Lab: [facility] [address] [address] Performing Lab: [address] [address] PROTEIN,TOTAL 7.4 g/dL 6.0-8.3 ALBUMIN 4.4 g/dL 3.5-5.0 ALKALINE PHOSPHATASE 95 U/L 40-150 AST 21 U/L 5-34 ALT 34 U/L BILIRUBIN, TOTAL 0.4 mg/dL 0.2-1.2 Jul 06, 2024 02:09 PM [facility] BASIC METABOLIC PANEL (non-fasting) Specimen Type: SERUM No comment entered. Ordering Provider: Brian REEVES Report Released Date/Time: Jul 01, 2024 03:56 PM Reporting Lab: [facility] [address] [address] Performing Lab: [address] [address] UREA NITROGEN 19 mg/dL 7-25 GLUCOSE 90 mg/dL 65-100 SODIUM 139 mmol/L 135-145 POTASSIUM 4.8 mmol/L 3.5-5.0 CHLORIDE 104 mmol/L 100-110 CO2 26 meq/L 20-30 CREATININE, Serum 1.04 mg/dL 0.50-1.40 eGFR(CKD-EPI 2020) 87 mL/min >60 Jul 06, 2024 02:09 PM [facility] CBC AND DIFF (AUTO) Specimen Type: BLOOD No comment entered. Ordering Provider: Brian REEVES Report Released Date/Time: Jul 01, 2024 03:56 PM Reporting Lab: [address] [address] Performing Lab: [address] [address] WBC 8.69 10*3/uL 4.50-11.00 RBC 5.01 10*6/uL [...] USER EVERY DAY IN [facility] [place] [facility] Tobacco Use History This section includes a history of the smoking, or tobacco-related health factors, that were collected on or before the date of the Encounter. The data comes from the [place] facility where the Encounter took place. Date/Time Smoking Status/Tobac co Use Comment Facility Nov 19, 2023 10:00 AM VA-TOBACCO USE ADVICE IN [facility] [place] [facility] Nov 19, 2023 10:00 AM VA-TOBACCO USE SUPERVISOR GLYCERIN NO [facility] [place] [facility] Nov 19, 2023 10:00 AM VA-TOBACCO USE MED NO IN [facility] [place] [facility] Nov 19, 2023 10:00 AM VA-TOBACCO USE WI 30 MIN OF WAKEUP IN [facility] [place] [facility] Nov 19, 2023 10:00 AM VA-TOBACCO USER EVERY DAY IN [facility] [place] [facility] February 10, 2023 01:00 PM ORYX ADMIT TOBACCO SCREEN YES IN [facility] [place] [facility] February 10, 2023 01:00 PM ORYX ADMIT TOBACCO USE CIGS GR 5D [facility] February 10, 2023 01:00 PM ORYX DAILY TOBACCO SUPERVISOR GLYCERIN RECEIVED [facility] February 10, 2023 01:00 PM ORYX DAILY TOBACCO MEDS ORDERED [facility] Sep 02, 2022 08:00 AM VA-TOBACCO USE 30 YEARS OR MORE [facility] Sep 02, 2022 08:00 AM VA-TOBACCO USE ADVICE [facility] Sep 02, 2022 08:00 AM VA-TOBACCO USE SUPERVISOR GLYCERIN YES [facility] Sep 02, 2022 08:00 AM VA-TOBACCO USE MED NOTIFY PROVIDER [facility] Sep 02, 2022 08:00 AM VA-TOBACCO USE WI 30 MIN OF WAKEUP [facility] Sep 02, 2022 08:00 AM VA-TOBACCO USER EVERY DAY [facility] Oct 12, 2016 09:13 AM QUIT TOBACCO USE 1-7 YEARS AGO [facility] Sep 25, 2015 10:24 AM QUIT TOBACCO USE 1-7 YEARS AGO [facility] Oct 05, 2013 03:03 PM QUIT TOBACCO USE 1-7 YEARS AGO PT HAS QUIT LES THAN A YEAR AGO. [facility] Oct 05, 2013 03:03 PM QUIT TOBACCO USE IN PAST YEAR [facility] Advance Directives: All historical and current Section [...] Mar 06, 2023 ADVANCE DIRECTIVE BEV PETTIT [facility] Mar 06, 2023 ADVANCE DIRECTIVE DISCUSSION BEV PETTIT [facility] Apr 20, 2020 ADVANCE DIRECTIVE DISCUSSION [facility] Feb 24, 2020 ADVANCE DIRECTIVE DISCUSSION POOL FUENTES [facility] Oct 30, 2016 ADVANCE DIRECTIVE KULDEEP FAM [facility] Radiology Reports: +/- 30 days of the [...] KNEE 3 VIEWS (LEFT ): JEYSON SANCHEZ [id number] -1975 M Exm Date: JUL 14, 2024@11:13 Req Phys: OPAL REEVES Pat Loc: CWM/NO/PACT 4 (Req'g Loc) Img Loc: [facility] 1 Service: Unknown [facility] [place] [id number] (Case [id number] COMPLETE) KNEE 3 VIEWS (LEFT) (RAD Detailed) CPT:83696 Reason for Study: 5 yrs of left knee pain Clinical History: Report Status: Verified Date Reported: JUL 14, 2024 Date Verified: JUL 14, 2024 School Photographer E-Sig:/ES/LIA JACINTO JR Report: Study: AP weight-bearing [...] Primary Interpreting Staff: LIA JACINTO JR, Radiologist (School Photographer) /LIA CARPENTER JR [facility] Encounter Notes: All associated encounter notes [...] with Team RN [ ]Symptoms [ X ]Other-[place] came in asking for pain injection shot. States he was getting them while on 4L. MSA gave last PCP msg from last walk [...] [ X ] At this encounter the [place]'s Insurance information was verified. [ X ] At this encounter the below scheduled visits for the were discussed and appointment reminder card was offered. Future appointments: 08/10/2024 10:00 CWM/NO/PODIATRY A 08/24/2024 10:00 NHM DENTAL DMD 2 08/24/2024 11:30 NHM/OPTOMETRY/FRANCIS/ 08/24/2024 14:00 CWM/NO/MED REHAB 1 PA 09/20/2024 15:00 CWM/NO/PACT 4 11/10/2024 10:00 CWM/NO/PACT 4 /es/ QUINN WONG Advanced Fire Support Man Signed: 07/28/2024 12:23 07/28/2024 ADDENDUM STATUS: COMPLETED MSA gave msg about consult for pain clinic 3 times but vet would not answer. /brown/ QUINN WONG Advanced Fire Support Man Signed: 07/28/2024 12:24 QUINN WONG [facility]
--- OUTSIDE RECORDS SUMMARY | 2024-09-03 11:36 | XMS_ITS | Encounter Summary ---
Author Name Department of Vetera Affairs ([place]) Organization Department of [place] ([place]) Address [address] [place] [address] Care Team Providers Care Bacteriologist Medical Name Role Phone MARTIN BOWERS Primary Care Provider OPAL Mckay Primary Care Provider Unajerome ailable Selected Encounter This section includes the information on record at [place] for the Encounter. Date/Time Encounter Type Encounter Description Reason Pro vider Source IHE Encounter Template Text not used by [place] Advance Directives: All historical and current Section [...] Mar 06, 2023 ADVANCE DIRECTIVE BEV PETTIT [place] [facility] [place] [place] [facility] Mar 06, 2023 ADVANCE DIRECTIVE DISCUSSION BEV PETTIT [place] [facility] [place] [facility] Apr 20, 2020 ADVANCE DIRECTIVE DISCUSSION ERUM MARTÍNEZ [facility] Feb 24, 2020 ADVANCE DIRECTIVE DISCUSSION POOL FUENTES [facility] Oct 30, 2016 ADVANCE DIRECTIVE KULDEEP FAM [facility]
--- OUTSIDE RECORDS SUMMARY | 2024-09-03 11:36 | XMS_ITS ---
Author Name Department of Vetera Affairs ([place] Organization [place] Address [address] [place] [address] Care Team Providers Care Enforcement Officer Name Role Phone MARTIN BOWERS Primary Care Provider OPAL Mckay Primary Care Provider Unav ailable Selected Encounter This section includes the information on record at [place] for the Encounter. Date/Time Encounter Type Encounter Description Reason Pro vider Source Jul 13, 2024 12:00 AM Outpatient Encounter COMMUNITY CARE CONSULT IHE Encounter Template Text not used by [place] Plan of Treatment: Future Appointments (+ 6 months) and Future Tests (+/- 45 days) The Plan of Treatment section includes future care activities for the patient from all [place] treatmentfacilities. This section includes future appointments and future orders which are active, pending or scheduled. Future Appointments This section includes appointments that were scheduled to occur 6 months from the date of the Encounter, up to a maximum of 20 appointments. The data comes from all [place] treatment facilities. Appointment Date/Time Appointment Type Appointme nt Facility Name Jul 14, 2024 10:30 AM AMBULATORY - MEDICINE [facility] [place] [facility] Jul 20, 2024 03:30 PM AMBULATORY - MEDICINE [facility] [place] [facility] Jul 26, 2024 01:30 PM AMBULATORY - MEDICINE [facility] [place] [facility] Jul 28, 2024 10:30 AM AMBULATORY - PSYCHIATRY [facility] [place] [facility] Aug 10, 2024 10:00 AM AMBULATORY - MEDICINE [facility] [place] [facility] Aug 10, 2024 03:00 PM AMBULATORY - MEDICINE [facility] [place] [facility] Sep 20, 2024 03:00 PM AMBULATORY - MEDICINE [facility] [place] [facility] Nov 10, 2024 10:00 AM AMBULATORY - MEDICINE [place] [facility] [place] [facility] Active, Pending, and Scheduled Orders This section includes a listing of several types of active, pending, and scheduled orders, including clinic medications orders, diagnostic test orders, procedure orders and consult orders; where the start date of the order is 45 days before the date of the Encounter or 45 days after the date of theEncounter. The data comes from all [place] treatment facilities. Test Date/Time Test Type Test Details Facility Name Jun 09, 2024 01:58 PM Consult Order COMMUNITY CARE-GEN SURGERY Cons Rotary Cutter's Choice [facility] [place] [facility] Jun 09, 2024 03:46 PM Consult Order PSYCHOTHER APY BHIP/[facility] OUTPT Cons [facility]ary C[facility] [place] [facility] Jul 14, 2024 10:55 AM Consult Order REHAB MEDI CINE/[facility] OUTPT Cons [facility]ary Cutter[facility] Choice [facility] [place] [facility] Jul 19, 2024 11:25 AM Consult Order COMMUNITY CARE-DENTAL GENERAL Cons Rotary Cutter's Choice [facility] [place] [facility] Jul 22, 2024 08:51 AM Consult Order COMMUNITY CARE-DENTAL GENERAL Cons Rotary Cutter's Choice [facility] [place] [facility] Jul 22, 2024 01:51 PM Consult Order COMMUNITY CARE-DENTAL GENERAL Cons Rotary Cutter's Choice [facility] [place] [facility] Lab Results: +/- 30 days of [...] Range Comment Jul 06, 2024 02:09 PM [facility] LIPID PANEL FASTING Specimen Type: SERUM No comment entered. Ordering Provider: PERRY LONG MD Report Released Date/Time: Jun 17, 2024 02:14 PM Reporting Lab: [facility] [address] [facility] [address] [address] Performing Lab: [facility] [address] [facility] [address] CHOLESTEROL 251 mg/dL H TRIGLYCERIDE 70 mg/dL 0-150 LDL calculated 171 mg/dL H 0-129 CHOL/HDL 3.8 HDL CHOLESTEROL 66 mg/dL H 40-60 Jul 06, 2024 02:09 PM [facility] CALCIUM Specimen Type: SERUM No comment entered. Ordering Provider: Brian REEVES Report Released Date/Time: Jul 01, 2024 03:56 PM Reporting Lab: [facility] [address] [facility] [address] Performing Lab: [facility] [address] [facility] [address] CALCIUM 9.8 mg/dL 8.5-10.2 Jul 06, 2024 02:09 PM [facility] HEMOGLOBIN A1C PANEL Specimen Type: BLOOD [...] Jul 01, 2024 03:56 PM Reporting Lab: [address] [address] Performing Lab: [address] [address] HEMOGLOBIN A1C 4.9 4.0-5.6 Jul 06, 2024 02:09 PM [facility] LIVER FUNCTION Specimen Type: SERUM No comment entered. Ordering Provider: Brian REEVES Report Released Date/Time: Jul 01, 2024 03:56 PM Reporting Lab: [facility] [address] [address] Performing Lab: [address] [address] PROTEIN,TOTAL 7.4 g/dL 6.0-8.3 ALBUMIN 4.4 g/dL 3.5-5.0 ALKALINE PHOSPHATASE 95 U/L 40-150 AST 21 U/L 5-34 ALT 34 U/L BILIRUBIN, TOTAL 0.4 mg/dL 0.2-1.2 Jul 06, 2024 02:09 PM [facility] BASIC METABOLIC PANEL (non-fasting) Specimen Type: SERUM No comment entered. Ordering Provider: Brian REEVES Report Released Date/Time: Jul 01, 2024 03:56 PM Reporting Lab: [address] [address] Performing Lab: [address] [address] UREA NITROGEN 19 mg/dL 7-25 GLUCOSE 90 mg/dL 65-100 SODIUM 139 mmol/L 135-145 POTASSIUM 4.8 mmol/L 3.5-5.0 CHLORIDE 104 mmol/L 100-110 CO2 26 meq/L 20-30 CREATININE, Serum 1.04 mg/dL 0.50-1.40 eGFR(CKD-EPI 2020) 87 mL/min >60 Jul 06, 2024 02:09 PM [facility] CBC AND DIFF (AUTO) Specimen Type: BLOOD No comment entered. Ordering Provider: Brian REEVES Report Released Date/Time: Jul 01, 2024 03:56 PM Reporting Lab: [facility] [address] [facility] [address] Performing Lab: [address] [address] WBC 8.69 10*3/uL 4.50-11.00 RBC 5.01 10*6/uL [...] and tobacco- related health factors from the [place] facility where the Encounter took place. Current Smoking Status This section includes the most current smoking, or tobacco-related health factor, from the [place] facility where the Encounter took place. Date/Time Current Smoking Status Comment [facility] Nov 19, 2023 10:00 AM [place]-TOBACCO USER EVERY DAY [facility] [place] [facility] Tobacco Use History This section includes a history of the smoking, or tobacco-related health factors, that were collected on or before the date of the Encounter. The data comes from the [place] facility where the Encounter took place. Date/Time Smoking Status/Tobac co Use Comment Facility Nov 19, 2023 10:00 AM VA-TOBACCO USE ADVICE [facility] [place] [facility] Nov 19, 2023 10:00 AM VA-TOBACCO USE CS ASSOCIATE NO [place] [facility] [place] [facility] Nov 19, 2023 10:00 AM VA-TOBACCO USE MED NO [place] [facility] [place] [facility] Nov 19, 2023 10:00 AM VA-TOBACCO USE WI 30 MIN OF WAKEUP [place] [facility] [place] [facility] Nov 19, 2023 10:00 AM VA-TOBACCO USER EVERY DAY [place] [facility] [place] [facility] February 10, 2023 01:00 PM ORYX ADMIT TOBACCO SCREEN YES [place] [facility] [place] [facility] February 10, 2023 01:00 PM ORYX ADMIT TOBACCO USE CIGS GR 5D [place] [facility] [place] [facility] February 10, 2023 01:00 PM ORYX DAILY TOBACCO CS ASSOCIATE RECEIVED [place] [facility] [place] [facility] February 10, 2023 01:00 PM ORYX DAILY TOBACCO MEDS ORDERED [place] [facility] [place] [facility] Sep 02, 2022 08:00 AM VA-TOBACCO USE 30 YEARS OR MORE [place] [facility] [place] [facility] Sep 02, 2022 08:00 AM VA-TOBACCO USE ADVICE [place] [facility] [place] [facility] Sep 02, 2022 08:00 AM VA-TOBACCO USE CS ASSOCIATE YES [place] [facility] [place] [facility] Sep 02, 2022 08:00 AM VA-TOBACCO USE MED NOTIFY PROVIDER [place] [facility] [place] [facility] Sep 02, 2022 08:00 AM VA-TOBACCO USE WI 30 MIN OF WAKEUP [place] [facility] [place] [facility] Sep 02, 2022 08:00 AM VA-TOBACCO USER EVERY DAY [place] [facility] [place] [facility] Oct 12, 2016 09:13 AM QUIT TOBACCO USE 1-7 YEARS AGO [place] [facility] [place] [facility] Sep 25, 2015 10:24 AM QUIT TOBACCO USE 1-7 YEARS AGO [place] [facility] [place] [facility] Oct 05, 2013 03:03 PM QUIT TOBACCO USE 1-7 YEARS AGO PT HAS QUIT LES THAN A [facility]AR AGO. [facility], 2013 03:03 PM QUIT TOBACCO USE IN PAST YEAR [facility] Advance Directives: All historical and current Section Date Range: From patient's date of to the date document was created. This section includes ALL of a patient's completed or amended [place] Advance and Rescinded Directives. The entries below indicate that a directive exists for the patient, but an actual copy is not included with this document. The data comes from all [place] facilities. Date Advance Directives Provider Source Mar 06, 2023 ADVANCE DIRECTIVE BEV PETTIT [facility] Mar 06, 2023 ADVANCE DIRECTIVE DISCUSSION BEV PETTIT [facility] Apr 20, 2020 ADVANCE DIRECTIVE DISCUSSION ERUM MARTÍNEZ [facility] Feb 24, 2020 ADVANCE DIRECTIVE DISCUSSION POOL FUENTES [facility] Oct 30, 2016 ADVANCE DIRECTIVE KULDEEP FAM [facility] Radiology Reports: +/- 30 days of [...] the Encounter. The data comes from all [place] treatment facilities. Date/Time Radiology Report Provider Source Jul 14, 2024 11:13 AM KNEE 3 VIEWS (LEFT ): JEYSON SANCHEZ [id number] -1975 M Exm Date: JUL 14, 2024@11:13 Req Phys: OPAL REEVES Pat Loc: CWM/NO/PACT 4 (Req'g Loc) Img Loc: [facility] 1 Service: Unknown [facility] [id number] (Case 198 COMPLETE) KNEE 3 VIEWS (LEFT) (RAD Detailed) CPT:98300 Reason for Study: 5 yrs of left knee pain Clinical History: Report Status: Verified Date Reported: JUL 14, 2024 Date Verified: JUL 14, 2024 Can Handler E-Sig:/ES/LIA AJCINTO JR Report: Study: AP weight-bearing views of [...] Primary Interpreting Staff: LIA JACINTO JR, Radiologist (Can Handler) /LIA CARPENTER JR [facility] Encounter Notes: All associated encounter notes [...] REQUIRED Electronically Filed: 08/06/2024 by: JOSHUA FLORES FILM LOADER JOSHUA FLORES [facility]
--- OUTSIDE RECORDS SUMMARY | 2024-09-03 11:36 | XMS_ITS | Encounter Summary ---
Author Name [facility] [place] Organization [place] Address [address] [place] [address] Care Team Providers Care Product Development Ecologist Name Role Phone MARTIN BOWERS Primary Care Provider OPAL Mckay Primary Care Provider Unajerome ailable Selected Encounter This section includes the information on record at [place] for the Encounter. Date/Time Encounter Type Encounter Description Reason Provider Source Aug 10, 2024 10:00 AM OFFICE O/P NEW SF 15 MIN PODIATRY ICD-10-CM L60.3 Nail dystrophy TOY CONWAY [facility] Encounter Template Text not used by [place] Assessments - Encounter Diagnoses This section includes the primary and secondary diagnoses documented for the Encounter. Date/Time Primary/Secondary Diagnosis Diagnosis Name Provider Source Aug 10, 2024 10:19 AM PRIMARY Nail dystrophy [facility] Plan of Treatment: Future Appointments (+ 6 months) and Future Tests (+/- 45 days) The Plan of Treatment section includes future care activities for the patient from all [place] treatmentfacilities. This section includes future appointments and future orders which are active, pending or scheduled. Future Appointments This section includes appointments that were scheduled to occur 6 months from the date of the Encounter, up to a maximum of 20 appointments. The data comes from all [place] treatment facilities. Appointment Date/Time Appointment Type Appointme nt Facility Name Sep 20, 2024 03:00 PM [facility] Nov 10, 2024 10:00 AM [facility] Active, Pending, and Scheduled Orders This section includes a listing of several types of active, pending, and scheduled orders, including clinic medications orders, diagnostic test orders, procedure orders and consult orders; where the start date of the order is 45 days before the date of the Encounter or 45 days after the date of theEncounter. The data comes from all [place] treatment facilities. Test Date/Time Test Type Test Details Facility Name Jul 14, 2024 10:55 AM Consult Order REHAB MEDI CINE/NHM OUTPT Cons [facility] Facilities [facility] Jul 19, 2024 11:25 AM Consult Order COMMUNITY CARE-DENTAL GENERAL Cons Gamma Facilities Operator's Choice [facility] Jul 22, 2024 08:51 AM Consult Order COMMUNITY CARE-DENTAL GENERAL Cons Gamma Facilities Operator's Choice [facility] Jul 22, 2024 01:51 PM Consult Order COMMUNITY CARE-DENTAL GENERAL Cons Gamma Facilities [facility] Vital Signs: All taken on the encounter date This section contains inpatient and outpatient Vital Signs collected on the date of the Encounter. Date/Time Temperature Pulse Blood Pressure Respiratory Rate SP02 Pain Height Weight Body Mass Index Source Aug 10, 2024 10:08 AM 98.4 91 148/76 18 [address] [facility] Social History: Smoking Status (Most current) and Tobacco Use (All prior to encounter date) This section includes the most current, and the historical, smoking and tobacco- related health factors from the [place] facility where the Encounter took place. Current Smoking Status This section includes the most current smoking, or tobacco-related health factor, from the [place] facility where the Encounter took place. Date/Time Current Smoking Status Comment Gino hanson Nov 19, 2023 10:00 AM MT-TOBACCO USE [place] 30 MIN OF WAKEUP [facility] Tobacco Use History This section includes a history of the smoking, or tobacco-related health factors, that were collected on or before the date of the Encounter. The data comes from the [place] facility where the Encounter took place. Date/Time Smoking Status/Tobac co Use Comment Facility Nov 19, 2023 10:00 AM VA-TOBACCO USE ADVICE [place] [facility] [place] [facility] Nov 19, 2023 10:00 AM VA-TOBACCO USE GRAPPLE CREW LEADER NO [place] [facility] [place] [facility] Nov 19, 2023 10:00 AM VA-TOBACCO USE MED NO [place] [facility] [place] [facility] Nov 19, 2023 10:00 AM VA-TOBACCO USE WI 30 MIN OF WAKEUP [place] [facility] [place] [facility] Nov 19, 2023 10:00 AM VA-TOBACCO USER EVERY DAY [place] [facility] [place] [facility] February 10, 2023 01:00 PM ORYX ADMIT TOBACCO SCREEN YES [place] [facility] [place] [facility] February 10, 2023 01:00 PM ORYX ADMIT TOBACCO USE CIGS GR 5D [place] [facility] [place] [facility] February 10, 2023 01:00 PM ORYX DAILY TOBACCO GRAPPLE CREW LEADER RECEIVED MT [facility] [place] [facility] February 10, 2023 01:00 PM ORYX DAILY TOBACCO MEDS ORDERED MT [facility] [place] [facility] Sep 02, 2022 08:00 AM VA-TOBACCO USE 30 YEARS OR MORE MT [facility] [place] [facility] Sep 02, 2022 08:00 AM VA-TOBACCO USE ADVICE MT [facility] [place] [facility] Sep 02, 2022 08:00 AM VA-TOBACCO USE GRAPPLE CREW LEADER YES [place] [facility] [place] [facility] Sep 02, 2022 08:00 AM VA-TOBACCO USE MED NOTIFY PROVIDER MT [facility] [place] [facility] Sep 02, 2022 08:00 AM VA-TOBACCO USE WI 30 MIN OF WAKEUP MT [facility] [place] [facility] Sep 02, 2022 08:00 AM VA-TOBACCO USER EVERY DAY MT [facility] [place] [facility] Oct 12, 2016 09:13 AM QUIT TOBACCO USE 1-7 YEARS AGO MT [facility] [place] [facility] Sep 25, 2015 10:24 AM QUIT [...] ALL of a patient's completed or amended [place] Advance and Rescinded Directives. The entries below indicate that a directive exists for the patient, but an actual copy is not included with this document. The data comes from all [place] facilities. Date Advance Directives Provider Source Mar 06, 2023 ADVANCE DIRECTIVE BEV PETTIT [facility] Mar 06, 2023 ADVANCE DIRECTIVE DISCUSSION BEV PETTIT [facility] Apr 20, 2020 ADVANCE DIRECTIVE DISCUSSION ERUM MARTÍNEZ [facility] Feb 24, 2020 ADVANCE DIRECTIVE DISCUSSION POOL FUENTES [facility] Oct 30, 2016 ADVANCE DIRECTIVE KULDEEP [...] the Encounter. The data comes from all [place] treatment facilities. Date/Time Radiology Report Provider Source Jul 14, 2024 11:13 AM KNEE 3 VIEWS (LEFT ): TARUNKIRBY CORONASON TIERA [id number] -1975 M Exm Date: JUL 14, 2024@11:13 Req Phys: OPAL REEVES Loc: CWM/NO/PACT 4 (Req'g Loc) Img [facility]: [facility] Service: [place] [address] (Case [id number] COMPLETE) KNEE 3 VIEWS (LEFT) (RAD Detailed) CPT:00126 Reason for Study: 5 yrs of left knee pain Clinical History: Report Status: Verified Date Reported: JUL 14, 2024 Date Verified: JUL 14, 2024 Edge Banding Machine Offbearer E-Sig:/ES/LIA JACINTO JR Report: Study: AP weight-bearing [...] Primary Interpreting Staff: LIA JACINTO JR, Radiologist (Edge Banding Machine Offbearer) /LIA CARPENTER JR [place] [facility] Encounter Notes: All associated encounter notes This section contains the clinical notes associated to the Encounter. Date/Time Encounter Note(s) Provider Source Aug 10, 2024 10:15 AM PODIATRY CONSULT: LOCAL TITLE: CONSULT REPORT/PODIATRY STANDARD TITLE: PODIATRY CONSULT DATE OF NOTE: AUG 10, 2024@10:15 ENTRY DATE: AUG 10, 2024@10:15:12 AUTHOR: TOY CONWAY EXP COSIGNER: URGENCY: STATUS: COMPLETED Podiatry [facility] New Consult Provider: Toy Conway Date: AUG 10, 2024 JEYSON S[address]HEZ [address] [place] [id number] January [birth year] MALE [id number] PATIENT PHONE - Primary Care: OPAL REEVES Consult Concern:Patient referred by OPAL REEVESor dystrophic right toenail. History of chief complaint: Patient reports dropping a 45 pound gym weight on the toe before he entered the service and has had a dystrophic nail since does not report any pain just wants it reduced. Subjective: As per above Social Hx: Complex mental health issues polysubstance abuse Hx: [employer] FROM January TO Apr Surgical Hx: Recent left inguinal hernia repair. Medical problems active: Active Problem Family history of malignant neoplas 07/14/2024 OPAL REEVES Hyperlipidemia ([facility] [id number]) E78.5 07/14/2024 OPAL REEVES Acute back pain - lumbar M54.50 06/09/2024 OPAL REEVES Tinea unguium B35.1 06/09/2024 OPAL REEVES Exposure to potentially hazardous s 11/12/2023 TESS SMALLWOOD Homeless Z59.01 04/21/2023 ROSANNA JOYCE Inguinal hernia K40.91 06/09/2024 OPAL REEVES Cannabis dependence F12.20 02/21/2023 JULES PEREZ Schizoaffective disorder, bipolar t 02/20/2023 JULES PEREZ Alcohol dependence F10.24 02/10/2023 ADELSO LOMBARDO Hypertension I10. 07/14/2024 OPAL REEVES Gastroesophageal reflux disease K21 09/02/2022 FABRICIO PRINCE Nicotine dependence F17.200 09/02/2022 FABRICIO PRINCE JAWED Bipolar disorder F31.9 09/02/2022 FABRICIO PRINCE Positive PPD R76.11 09/02/2022 FABRICIO PRINCE Left knee pain (SNOMED CT 686024415 07/14/2024 OPAL REEVES Asthma (SNOMED CT 555368612) J45.99 09/02/2022 FABRICIO PRINCE JAWJENNIFER Active mediciation: Active Outpatient Medications (including Supplies): Active Outpatient Medications Status 1) ACETAMINOPHEN 500MG TAB TAKE TWO TABLETS BY MOUTH ACTIVE (S) TWICE DAILY NEEDED 2) ALBUTEROL 90MCG (CFC-F) 200D ORAL INHL INHALE 2 PUFFS ACTIVE (S) BY MOUTH FOUR TIMES DAILY NEEDED 3) AMLODIPINE BESYLATE 5MG TAB TAKE ONE TABLET BY MOUTH ACTIVE (S) ONCE DAILY FOR BLOOD PRESSURE/HEART, DO NOT TAKE WITH GRAPEFRUIT JUICE 4) INDOMETHACIN 50MG CAP TAKE ONE CAPSULE BY MOUTH TWICE ACTIVE DAILY NEEDED FOR GOUT 5) LIDOCAINE 5% PATCH APPLY 1 PATCH TOPICALLY ONCE DAILY ACTIVE FOR NERVE PAIN (LEAVE PATCH ON FOR 12 HOURS, THEN REMOVE PATCH) 6) MULTIVITAMIN/MINERALS CAP/TAB TAKE ONE CAP/TAB BY ACTIVE (S) MOUTH ONCE DAILY 7) QUETIAPINE FUMARATE 100MG TAB TAKE ONE TABLET BY ACTIVE MOUTH AT BEDTIME AND TAKE ONE TABLET AT BEDTIME NEEDED AND TAKE ONE TABLET AT BEDTIME NEEDED SCHIZOAFFECTIVE BIPOLAR/ SLEEP 8) TRAZODONE HCL 100MG TAB TAKE ONE TABLET BY MOUTH AT ACTIVE BEDTIME AND TAKE ONE-HALF TABLET AT BEDTIME NEEDED SLEEP Active Non-VA Medications Status 1) Non-VA OMEPRAZOLE 20MG EC CAP 20MG BY MOUTH EVERY ACTIVE MORNING 30 MINUTES BEFORE BREAKFAST 9 Total Medications Allergies: Data on this list may not be complete. Please check JLV. FACILITY ALLERGY/ADR -------- [facility] NO KNOWN ALLERGIES [facility] CATS [facility] TUBERCULIN,PURIFIED PROTEIN DERIVATIVE [place] [facility] [place] [facility] Lab data: CBC TREND Collection DT Spec WBC RBC [...] 15.1 44.4 99.3 H 33.8 H 262 -- -- PT INR TREND No data available -- Imaging Reports: === Include data from 08/11/2023 to 08/10/2024 08/10/2024 10:15 CONFIDENTIAL IMAGING REPORTS SUMMARY pg. 1 JEYSON SANCHEZ [id number] : 1975 II - Imaging Impression (max 1 occurrence) Date Procedure CPT Status Case # 07/14/2024 KNEE 3 VIEWS (LEFT) [id number] Verified 198 Prominent arthritic changes of the left knee, as described above. Vital signs: Date Vital Measurement Qualifiers 08/10/2024 10:08 Temp F (C) 98.4 (36.9) Pulse 91 Respir 18 BP 148/76 POx (L/Min)(%) 97 At Rest LE Exam: Vascular exam reveals: Bilateral findings: 2+ DP and PT pulses, warm pink skin normal distribution of pedal ankle and leg hair, no edema, warm pink skin, normal brisk capillary refill bilaterally. Neurological exam reveals intact light touch pain in temperature to dermatomes L4-5 S1 bilateral, normal muscle bulk and tone equal and symmetrical bilateral, no clonus on dorsiflexion bilateral, Babinski downgoing bilateral, no fasciculations or other abnormal spontaneous motor movement identified, motor power 5 over 5 inverters everters invertors dorsi flexors plantar flexors bilateral. Orthopedic exam: Normal posterior leg ankle heel alignment, no significant inversion or eversion positional stance abnormalities in the hindfoot, normal arch formation bilateral, no forefoot positional or structural abnormalities such as varus or valgus, no hallux varus or valgus or hammertoes present. No significant tibial varum or torsion present. Equal limb length left and right. Ankle range of motion 15 degree dorsiflexion 25 degree plantarflexion bilateral subtalar joint range of motion two thirds one third inversion eversion bilateral with neutral near 0, midtarsal and metatarsophalangeal joint range of motion normal without crepitus. Dermatological exam: No abnormal pigmentation lesions no rashes or plaques present no webspace maceration no plantar lesions or calluses present no excrescences on the toes toenails normal except for right hallux which demonstrates distal lysis and nailbed elevation likely secondary to previous trauma history may have underlying exostosis but there is no wound infection pain in the nail once reduced is of normal tissue and does not appear to be secondarily compromised by tinea. Impression: -History of nail trauma with resultant nail dystrophy Plan: -Reduced nail without incident -Patient can use an emery board to keep file down. Follow-up: -No follow-up necessary /brown/ TOY CONWAY DPM PODIATRY ATTENDING Signed: 08/10/2024 10:18 TOY CONWAY [facility]
--- OUTSIDE RECORDS SUMMARY | 2024-09-03 11:36 | XMS_ITS | Encounter Summary ---
Author Name [place] Organization [place] Address [address] [place] [address] Care Team Providers Care Assembler Truck Trailer Name Role Phone MARTIN BOWERS Primary Care [...] 26, 2024 01:30 PM AMBULATORY - MEDICINE [facility] [place] [facility] Jul 28, 2024 10:30 AM AMBULATORY - PSYCHIATRY [place] [facility] [place] [facility] Aug 10, 2024 10:00 AM AMBULATORY - MEDICINE [facility] [place] [facility] Aug 10, 2024 03:00 PM AMBULATORY - MEDICINE IN C [facility] [place] [place] [facility] Sep 20, 2024 03:00 PM AMBULATORY - MEDICINE IN [place] [facility] [place] [facility] Nov 10, 2024 10:00 AM AMBULATORY - MEDICINE [facility] [place] [facility] Active, Pending, and Scheduled Orders This section [...] PM Consult Order COMMUNITY CARE-GEN SURGERY Cons Adjuster And Inspector's Choice [facility] [place] [facility] Jun 09, 2024 03:46 PM Consult Order PSYCHOTHER APY BHIP/NHM OUTPT Cons Adjuster And Inspector's Choice [facility] [place] [facility] Jul 14, 2024 10:55 AM Consult Order REHAB MEDI CINE/NHM OUTPT Cons Adjuster And Inspector's Choice [facility] [place] [facility] Jul 19, 2024 11:25 AM Consult Order COMMUNITY CARE-DENTAL GENERAL Cons Adjuster And Inspector's Choice [facility] [place] [facility] Jul 22, 2024 08:51 AM Consult Order COMMUNITY CARE-DENTAL GENERAL Cons Adjuster And Inspector's Choice [facility] [place] [facility] Jul 22, 2024 01:51 PM Consult Order COMMUNITY CARE-DENTAL GENERAL Cons Adjuster And Inspector's Choice [facility] [place] [facility] Lab Results: +/- 30 days of the [...] 06, 2024 02:09 PM [facility] LIPID PANEL FASTING Specimen Type: SERUM No comment entered. Ordering Provider: PERRY LONG MD Report Released Date/Time: Jun 17, 2024 02:14 PM Reporting Lab: [facility] [address] [facility] [address] Performing Lab: [address] [address] CHOLESTEROL 251 mg/dL H TRIGLYCERIDE 70 mg/dL 0-150 LDL calculated 171 mg/dL H 0-129 CHOL/HDL 3.8 HDL CHOLESTEROL 66 mg/dL H 40-60 Jul 06, 2024 02:09 PM [facility] CALCIUM Specimen Type: SERUM No comment entered. Ordering Provider: Brian REEVES Report Released Date/Time: Jul 01, 2024 03:56 PM Reporting Lab: [address] [address] Performing Lab: [address] [address] CALCIUM 9.8 mg/dL 8.5-10.2 Jul 06, 2024 02:09 PM [facility] LIVER FUNCTION Specimen Type: SERUM No comment entered. Ordering Provider: Brian REEVES Report Released Date/Time: Jul 01, 2024 03:56 PM Reporting Lab: [address] [address] Performing Lab: [address] [address] PROTEIN,TOTAL 7.4 g/dL 6.0-8.3 ALBUMIN 4.4 g/dL 3.5-5.0 ALKALINE PHOSPHATASE 95 U/L 40-150 AST 21 U/L 5-34 ALT 34 U/L BILIRUBIN, TOTAL 0.4 mg/dL 0.2-1.2 Jul 06, 2024 02:09 PM [facility] HEMOGLOBIN A1C PANEL Specimen Type: BLOOD [...] Jul 01, 2024 03:56 PM Reporting Lab: [facility] [address] [facility] [address] Performing Lab: [address] [address] HEMOGLOBIN A1C 4.9 4.0-5.6 Jul 06, 2024 02:09 PM [facility] BASIC METABOLIC PANEL (non-fasting) Specimen Type: SERUM No comment entered. Ordering Provider: Brian REEVES Report Released Date/Time: Jul 01, 2024 03:56 PM Reporting Lab: [address] [address] Performing Lab: [address] [address] UREA NITROGEN 19 mg/dL 7-25 GLUCOSE 90 mg/dL 65-100 SODIUM 139 mmol/L 135-145 POTASSIUM 4.8 mmol/L 3.5-5.0 CHLORIDE 104 mmol/L 100-110 CO2 26 meq/L 20-30 CREATININE, Serum 1.04 mg/dL 0.50-1.40 eGFR(CKD-EPI 2020) 87 mL/min >60 Jul 06, 2024 02:09 PM [facility] CBC AND DIFF (AUTO) Specimen Type: BLOOD No comment entered. Ordering Provider: Brian REEVES Report Released Date/Time: Jul 01, 2024 03:56 PM Reporting Lab: [address] [address] Performing Lab: [address] [address] WBC 8.69 10*3/uL 4.50-11.00 RBC 5.01 10*6/uL [...] took place. Date/Time Current Smoking Status Comment [facility] satya Nov 19, 2023 10:00 AM VA-TOBACCO USE WI 30 MIN OF WAKEUP [facility] Tobacco Use History This section includes a history of the smoking, or tobacco-related health factors, that were collected on or before the date of the Encounter. The data comes from the [place] facility where the Encounter took place. Date/Time Smoking Status/Tobac co Use Comment Facility Nov 19, 2023 10:00 AM [facility]CO [facility] Nov 19, 2023 10:00 AM VA-TOBACCO USE ACCOUNTING SYSTEMS ANALYST NO [facility] Nov 19, 2023 10:00 AM VA-TOBACCO USE MED NO IN [facility] [place] [facility] Nov 19, 2023 10:00 AM VA-TOBACCO USE WI 30 MIN OF WAKEUP IN [facility] [place] [facility] Nov 19, 2023 10:00 AM VA-TOBACCO USER EVERY DAY IN [facility] [place] [facility] February 10, 2023 01:00 PM ORYX ADMIT TOBACCO SCREEN YES IN [facility] [place] [facility] February 10, 2023 01:00 PM ORYX ADMIT TOBACCO USE CIGS GR 5D IN [facility] [place] [facility] February 10, 2023 01:00 PM ORYX DAILY TOBACCO ACCOUNTING SYSTEMS ANALYST RECEIVED IN [facility] [place] [facility] February 10, 2023 01:00 PM ORYX DAILY TOBACCO MEDS ORDERED IN [facility] [place] [facility] Sep 02, 2022 08:00 AM VA-TOBACCO USE 30 YEARS OR MORE IN [facility] [place] [facility] Sep 02, 2022 08:00 AM VA-TOBACCO USE ADVICE IN [facility] [place] [facility] Sep 02, 2022 08:00 AM VA-TOBACCO USE ACCOUNTING SYSTEMS ANALYST YES IN [facility] [place] [facility] Sep 02, 2022 08:00 AM VA-TOBACCO USE MED NOTIFY PROVIDER IN [facility] [place] [facility] Sep 02, 2022 08:00 AM VA-TOBACCO USE WI 30 MIN OF WAKEUP IN [facility] [place] [facility] Sep 02, 2022 08:00 AM VA-TOBACCO USER EVERY DAY IN [facility] [place] [facility] Oct 12, 2016 09:13 AM QUIT TOBACCO USE 1-7 YEARS AGO IN [facility] [place] [facility] Sep 25, 2015 10:24 AM QUIT TOBACCO USE 1-7 YEARS AGO [facility] [place] [facility] Oct 05, 2013 03:03 PM QUIT TOBACCO USE 1-7 YEARS AGO PT HAS QUIT LES THAN A YEAR AGO. IN [facility] [place] [place] [facility] Oct 05, 2013 03:03 PM QUIT TOBACCO USE IN PAST YEAR IN [facility] [place] [facility] Advance Directives: All historical and current Section [...] Mar 06, 2023 ADVANCE DIRECTIVE BEV PETTIT [facility] Mar 06, 2023 ADVANCE DIRECTIVE DISCUSSION BEV PETTIT [facility] Apr 20, 2020 ADVANCE DIRECTIVE DISCUSSION ERUM MARTÍNEZ CB Feb 24, 2020 ADVANCE DIRECTIVE DISCUSSION POOL FUENTES [facility] Oct 30, 2016 ADVANCE DIRECTIVE KULDEEP FAM [facility] Radiology Reports: +/- 30 days of [...] KNEE 3 VIEWS (LEFT ): JEYSON SANCHEZ [id number] -1975 M Exm Date: JUL 14, 2024@11:13 Req Phys: OPAL REEVES Pat Loc: CWM/NO/PACT 4 (Req'g Loc) [facility] Loc: [facility] 1 Service: Unknown [facility] [place] [address] (Case 198 COMPLETE) KNEE 3 VIEWS (LEFT) (RAD Detailed) CPT:99325 Reason for Study: 5 yrs of left knee pain Clinical History: Report Status: Verified Date Reported: JUL 14, 2024 Date Verified: JUL 14, 2024 Jackspooler E-Sig:/ES/LIA JACINTO JR Report: Study: AP weight-bearing [...] Primary Interpreting Staff: LIA JACINTO JR, Radiologist (Jackspooler) /LIA CARPENTER JR [facility] Encounter Notes: All associated encounter notes [...] REQUIRED Electronically Filed: 08/17/2024 by: JAYCE BISWAS [facility] Jul 22, 2024 12:00 AM NONVA CONSULT: LOCAL TITLE: COMMUNITY CARE-CONSULT RESULT NOTE STANDARD TITLE: NONVA CONSULT DATE OF NOTE: JUL 22, 2024 ENTRY DATE: AUG 25, 2024@08:32:33 AUTHOR: ADA MCPHERSON EXP COSIGNER: URGENCY: STATUS: COMPLETED VistA Imaging - Scanned Document SCANNED DOCUMENT SIGNATURE NOT REQUIRED Electronically Filed: 08/25/2024 by: ADA ZAMORA [facility]
--- OUTSIDE RECORDS SUMMARY | 2024-09-03 11:36 | XMS_ITS | Encounter Summary ---
Author Name [facility] [place] Address [address] [place] [address] Care Team Providers Care Bolt Cutter Name Role Phone MARTIN BOWERS Primary Care Provider OPAL Mckay Primary Care Provider Unav ailable Selected Encounter This section includes the information on record at [place] for the Encounter. Date/Time Encounter Type Encounter Description Reason Pro vider Source Aug 23, 2024 02:42 PM Outpatient Encounter PAIN CLINIC IHE Encounter Template Text not used by [place] Plan of Treatment: Future Appointments (+ 6 months) and Future Tests (+/- 45 days) The Plan of Treatment section includes future care activities for the patient from all [place] treatmentfacilities. This section includes future appointments and future orders which are active, pending or scheduled. Future Appointments This section includes appointments that were scheduled to occur 6 months from the date of the Encounter, up to a maximum of 20 appointments. The data comes from all [place] treatment facilities. Appointment Date/Time Appointment Type Appointme nt Facility Name Sep 20, 2024 03:00 PM AMBULATORY - MEDICINE [facility] [place] [facility] Nov 10, 2024 10:00 AM AMBULATORY - MEDICINE [facility] Active, Pending, and Scheduled Orders This section includes a listing of several types of active, pending, and scheduled orders, including clinic medications orders, diagnostic test orders, procedure orders and consult orders; where the start date of the order is 45 days before the date of the Encounter or 45 days after the date of theEncounter. The data comes from all [place] treatment facilities. Test Date/Time Test Type Test Details Facility Name Jul 14, 2024 10:55 AM Consult Order REHAB MEDI CINE/NHM OUTPT Cons Email Marketing Assistant's Choice [place] [facility] Jul 19, 2024 11:25 AM Consult Order COMMUNITY CARE-DENTAL GENERAL Cons Email Marketing Assistant's Choice [place] [facility] Jul 22, 2024 08:51 AM Consult Order COMMUNITY CARE-DENTAL GENERAL Cons Email Marketing Assistant's Choice [place] [facility] Jul 22, 2024 01:51 PM Consult Order COMMUNITY CARE-DENTAL GENERAL Cons Email Marketing Assistant's Choice [place] [facility] Social History: Smoking Status (Most current) and Tobacco Use (All prior to encounter date) This section includes the most current, and the historical, smoking and tobacco- related health factors from the [place] facility where the Encounter took place. Current Smoking Status This section includes the most current smoking, or tobacco-related health factor, from the [place] facility where the Encounter took place. Date/Time Current Smoking Status Comment Gino hernadez Nov 19, 2023 10:00 AM VA-TOBACCO USE [place] 30 MIN OF WAKEUP [place] CN[facility] Tobacco Use History This section includes a history of the smoking, or tobacco-related health factors, that were collected on or before the date of the Encounter. The data comes from the [place] facility where the Encounter took place. Date/Time Smoking Status/Tobac co Use Comment Facility Nov 19, 2023 10:00 AM VA-TOBACCO USE ADVICE [place] [facility] Nov 19, 2023 10:00 AM VA-TOBACCO USE WORKFORCE STAFFING ADVISOR NO [place] [facility] Nov 19, 2023 10:00 AM VA-TOBACCO USE MED NO [place] [facility] Nov 19, 2023 10:00 AM VA-TOBACCO USE WI 30 MIN OF WAKEUP [place] [facility] Nov 19, 2023 10:00 AM VA-TOBACCO USER EVERY DAY [facility] February 10, 2023 01:00 PM ORYX ADMIT TOBACCO SCREEN YES [facility] February 10, 2023 01:00 PM ORYX ADMIT TOBACCO USE CIGS GR 5D [facility] February 10, 2023 01:00 PM ORYX DAILY TOBACCO WORKFORCE STAFFING ADVISOR RE[facility]IVED [facility] February 10, 2023 01:00 PM ORYX DAILY TOBACCO MEDS ORDERED [facility] Sep 02, 2022 08:00 AM VA-TOBACCO USE 30 YEARS OR MORE [facility] Sep 02, 2022 08:00 AM VA-TOBACCO USE ADVICE [facility] Sep 02, 2022 08:00 AM VA-TOBACCO USE WORKFORCE STAFFING ADVISOR YES [facility] Sep 02, 2022 08:00 AM VA-TOBACCO USE MED NOTIFY PROVIDER [facility] Sep 02, 2022 08:00 AM VA-TOBACCO USE WI 30 MIN OF WAKEUP [facility] Sep 02, 2022 08:00 AM VA-TOBACCO USER EVERY DAY [facility] Oct 12, 2016 09:13 AM QUIT TOBACCO USE 1-7 YEARS AGO [facility] Sep 25, 2015 10:24 AM QUIT TOBACCO USE 1-7 YEARS AGO [facility] Oct 05, 2013 03:03 PM QUIT TOBACCO USE 1-7 YEARS AGO PT HAS QUIT LES THAN A YEAR AGO. [facility] Oct 05, 2013 03:03 PM QUIT TOBACCO USE IN PAST YEAR [facility] Advance Directives: All historical and current Section Date Range: From patient's date of to the date document was created. This section includes ALL of a patient's completed or amended [place] Advance and Rescinded Directives. The entries below indicate that a directive exists for the patient, but an actual copy is not included with this document. The data comes from all [place] facilities. Date Advance Directives Provider Source Mar 06, 2023 ADVANCE DIRECTIVE BEV PETTIT [place] [facility] Mar 06, 2023 ADVANCE DIRECTIVE DISCUSSION BEV PETTIT [place] [facility] Apr 20, 2020 ADVANCE DIRECTIVE DISCUSSION KIANAMYRAERUM [facility] Feb 24, 2020 ADVANCE DIRECTIVE DISCUSSION POOL FUENTES Azael [facility] Oct 30, 2016 ADVANCE DIRECTIVE KULDEEP FAM [place] CN[facility] [facility] [facility] Encounter Notes: All associated encounter notes This section contains the clinical notes associated to the Encounter. Date/Time Encounter Note(s) Provider Source Aug 23, 2024 02:44 PM LETTERS: LOCAL TITLE: PATIENT LETTER (B) STANDARD TITLE: LETTERS DATE OF NOTE: AUG 23, 2024@14:44 ENTRY DATE: AUG 23, 2024@14:44:17 AUTHOR: ROM MOJICA EXP COSIGNER: URGENCY: STATUS: COMPLETED [facility] Toll Free Number ext [phone] [facility] scheduling can be reached at ext. [phone] [facility]- ext. [phone] [facility]- ext. [phone] [facility]- ext. [phone] AUG 23, 2024 JEYSON SANCHEZ [address] [place] [id number] Dear JEYSON SANCHEZ Thank you for choosing the Department of [facility] ([place]) [facility] as your primary choice for health care. [...] would like to be seen, please contact [facility] at ext. [phone] to schedule an appointment. Thank you for your service to our nation, and we look forward to hearing from you soon. Sincerely, [facility] [address] [place] [address] [place] [address] ext [phone] [place] [facility] [address] [facility] [address] [place] [address] [place] [address] ext. [phone] [facility] [address] [facility] [address] [place] [address] [place] [address] ext. [phone] ROM MOJICA [facility] [place] [facility] Aug 23, 2024 02:42 PM CLERICAL NOTE: LOCAL TITLE: APPOINTMENT NO SHOW STANDARD TITLE: CLERICAL NOTE DATE OF NOTE: AUG 23, 2024@14:42 ENTRY DATE: AUG 23, 2024@14:42:37 AUTHOR: ROM MOJICA COSIGNER: URGENCY: STATUS: COMPLETED Patient Name: JEYSON SANCHEZ Patient SSN: [id number] Date and time of Appointment No show [...] 10:00 CWM/NO/PACT 4 /es/ ROM MOJICA ADVANCED TRANSFORMER STOCK CLERK Signed: 08/23/2024 14:44 ROM MOJICA CNTRL [place] [facility]
--- OUTSIDE RECORDS SUMMARY | 2024-09-03 11:36 | XMS_ITS ---
Author Name [place] Address [address] [place] [address] Care Team Providers Care Dump Truck Driver Name Role Phone MARTIN BOWERS Primary Care [...] 2024 03:00 PM AMBULATORY - MEDICINE [facility] NTR [place] [facility] Nov 10, 2024 10:00 AM AMBULATORY - MEDICINE [facility] Active, Pending, and Scheduled Orders This section includes a listing of several types of active, pending, and scheduled orders, including clinic medications orders, diagnostic test orders, procedure orders and consult orders; where the start date of the order is 45 days before the date of the Encounter or 45 days after the date of theEncounter. The data comes from all [place] treatment facilities. Test Date/Time Test Type Test Details Facility Name Jul 14, 2024 10:55 AM Consult Order REHAB MEDI CINE/NHM OUTPT Cons [employer] Fruit Crop Farmer's Choice [place] [facility] Jul 19, 2024 11:25 AM Consult Order COMMUNITY CARE-DENTAL GENERAL Cons [employer] Crop Farmer's Choice [place] [facility] Jul 22, 2024 08:51 AM Consult Order COMMUNITY CARE-DENTAL GENERAL Cons [employer] Crop Farmer's Choice [place] [facility] Jul 22, 2024 01:51 PM Consult Order COMMUNITY CARE-DENTAL GENERAL Cons [employer] Fruit Crop Farmer's Choice [place] [facility] Social History: Smoking Status (Most current) [...] USE WI 30 MIN OF WAKEUP [place] [facility] Tobacco Use History This section includes a history of the smoking, or tobacco-related health factors, that were collected on or before the date of the Encounter. The data comes from the [place] facility where the Encounter took place. Date/Time Smoking Status/Tobac co Use Comment Facility Nov 19, 2023 10:00 AM VA-TOBACCO USE ADVICE [place] [facility] Nov 19, 2023 10:00 AM VA-TOBACCO USE CANOPY INSPECTOR NO [place] [facility] [place] [facility] Nov 19, 2023 10:00 AM VA-TOBACCO USE MED NO [place] [facility] Nov 19, 2023 10:00 AM VA-TOBACCO USE WI 30 MIN OF WAKEUP [place] [facility] Nov 19, 2023 10:00 AM VA-TOBACCO USER EVERY DAY [facility] February 10, 2023 01:00 PM ORYX ADMIT TOBACCO SCREEN YES [facility] February 10, 2023 01:00 PM ORYX ADMIT TOBACCO USE CIGS GR 5D [facility] February 10, 2023 01:00 PM ORYX DAILY TOBACCO CANOPY INSPECTOR RECEIVED [facility] February 10, 2023 01:00 PM ORYX DAILY TOBACCO MEDS ORDERED [facility] Sep 02, 2022 08:00 AM VA-TOBACCO USE 30 YEARS OR MORE [facility] Sep 02, 2022 08:00 AM VA-TOBACCO USE ADVICE [facility] Sep 02, 2022 08:00 AM VA-TOBACCO USE CANOPY INSPECTOR YES [facility] Sep 02, 2022 08:00 AM VA-TOBACCO USE MED NOTIFY PROVIDER [facility] Sep 02, 2022 08:00 AM VA-TOBACCO USE WI 30 MIN OF WAKEUP [facility] Sep 02, 2022 08:00 AM VA-TOBACCO USER EVERY DAY [facility] Oct 12, 2016 09:13 AM QUIT TOBACCO USE 1-7 YEARS AGO [facility] Sep 25, 2015 10:24 AM QUIT TOBACCO USE 1-7 YEARS AGO [facility] Oct 05, 2013 03:03 PM QUIT TOBACCO USE 1-7 YEARS AGO PT HAS QUIT LES THAN A YEAR AGO. [facility] Oct 05, 2013 03:03 PM QUIT TOBACCO USE IN PAST YEAR [facility] Advance Directives: All historical and current [...] Mar 06, 2023 ADVANCE DIRECTIVE BEV PETTIT [place] [facility] Mar 06, 2023 ADVANCE DIRECTIVE DISCUSSION BEV PETTIT [place] [facility] Apr 20, 2020 ADVANCE DIRECTIVE DISCUSSION KIANAMYRAERUM [facility] Feb 24, 2020 ADVANCE DIRECTIVE DISCUSSION POOL FUENTES [facility] Oct 30, 2016 ADVANCE DIRECTIVE KULDEEP FAM [place] [facility] [facility] Encounter Notes: All associated encounter notes This section contains the clinical notes associated to the Encounter. Date/Time Encounter Note(s) Provider Source Aug 26, 2024 12:27 PM LETTERS: LOCAL TITLE: PATIENT LETTER (B) STANDARD TITLE: LETTERS DATE OF NOTE: AUG 26, 2024@12:27 ENTRY DATE: AUG 26, 2024@12:27:42 AUTHOR: AUDI HERNÁNDEZ SA COSIGNER: URGENCY: STATUS: COMPLETED AUG 26, 2024 JEYSON SANCHEZ [address] [place] [id number] Dear JEYSON SANCHEZ Thank you for choosing the Department of [facility] ([place]) [facility] as your primary choice for health [...] would like to be seen, please contact [facility] at ext. [phone] to schedule an appointment. Thank you for your service to our nation, and we look forward to hearing from you soon. Sincerely, [facility] [address] [facility] [address] [place] [address] [place] [address] [phone] [facility] [address] [place] [address] [place] [address] ext. [phone] [facility] 403 [facility] [address] [place] [address] [place] [address] ext. [phone] AUDI HERNÁNDEZ [facility] Aug 26, 2024 12:26 PM ADMINISTRATIVE [...] Provided specialties clinic call back phone number [phone] Ext: [phone] MARIELLEA will disposition on 09/10/2024. /es/ AUDI HERNÁNDEZ Signed: 08/26/2024 12:27 AUDI HERNÁNDEZ [facility]
--- OUTSIDE RECORDS SUMMARY | 2024-09-03 11:36 | XMS_ITS | Encounter Summary ---
Author Name Department [place] Organization [place] Address [address] [place] [address] Care Team Providers Care Wheel Polisher Name Role Phone MARTIN BOWERS Primary Care Provider OPAL Mckay Primary Care Provider Unajerome ailable Selected Encounter This section includes the information on record at [place] for the Encounter. Date/Time Encounter Type Encounter Description Reason Pro vider Source IHE Encounter Template Text not used by [place] Advance Directives: All historical and current Section Date Range: From patient's date of to the date document was created. This section includes ALL of a patient's completed or amended [place] Advance and Rescinded Directives. The entries below indicate that a directive exists for the patient, but an actual copy is not included with this document. The data comes from all [place] facilities. Date Advance Directives Provider Source Mar 06, 2023 ADVANCE DIRECTIVE BEV PETTIT [place] [facility] Mar 06, 2023 ADVANCE DIRECTIVE DISCUSSION BEV PETTIT [place] [facility] Apr 20, 2020 ADVANCE DIRECTIVE DISCUSSION ERUM MARTÍNEZ [facility] Feb 24, 2020 ADVANCE DIRECTIVE DISCUSSION POOL FUENTES [facility] Oct 30, 2016 ADVANCE DIRECTIVE KULDEEP FAM [place] [facility]
--- OUTSIDE RECORDS SUMMARY | 2024-09-03 11:36 | XMS_ITS ---
Author Name [place] Address [address] [place] [address] Care Team Providers Care Bladder Trimmer Name Role Phone MARTIN BOWERS Primary Care [...] 10, 2024 10:00 AM AMBULATORY - MEDICINE [facility] NTRL [place] [facility] Aug 10, 2024 03:00 PM AMBULATORY - MEDICINE [facility] NTRL [place] [facility] Sep 20, 2024 03:00 PM AMBULATORY - MEDICINE [facility] NTRL [place] [facility] Nov 10, 2024 10:00 AM AMBULATORY - MEDICINE [facility] NTRW[facility] Active, Pending, and Scheduled Orders This [...] Consult Order REHAB MEDI CINE/NHM OUTPT Cons Textile Cutting Machine Operator's Choice [facility] Jul 19, 2024 11:25 AM Consult Order COMMUNITY CARE-DENTAL GENERAL Cons Textile Cutting Machine Operator's Choice [place] CN[facility]L [facility] Jul 22, 2024 08:51 AM Consult Order COMMUNITY CARE-DENTAL GENERAL Cons Textile Cutting Machine Operator's Choice [facility] [place] [place] [facility] Jul 22, 2024 01:51 PM Consult Order COMMUNITY CARE-DENTAL GENERAL Cons Textile Cutting Machine Operator's Choice [facility] Social History: Smoking Status (Most current) [...] 10:00 AM VA-TOBACCO USER EVERY DAY [facility] Tobacco Use History This section includes a history of the smoking, or tobacco-related health factors, that were collected on or before the date of the Encounter. The data comes from the [place] facility where the Encounter took place. Date/Time Smoking Status/Tobac co Use Comment Facility Nov 19, 2023 10:00 AM VA-TOBACCO USE ADVICE [place] [facility] Nov 19, 2023 10:00 AM VA-TOBACCO USE CADDIE SUPERVISOR NO [place] CNTR [place] [facility] Nov 19, 2023 10:00 AM VA-TOBACCO USE MED NO [facility] [place] [place] [facility] Nov 19, 2023 10:00 AM VA-TOBACCO USE WI 30 MIN OF WAKEUP [place] CNTR [place] [facility] Nov 19, 2023 10:00 AM VA-TOBACCO USER EVERY DAY [place] [facility] February 10, 2023 01:00 PM ORYX ADMIT TOBACCO SCREEN YES [place] [facility] February 10, 2023 01:00 PM ORYX ADMIT TOBACCO USE CIGS GR 5D [place]L [place] [facility] February 10, 2023 01:00 PM ORYX DAILY TOBACCO CADDIE SUPERVISOR RECEIVED [place] CNTR [place] [facility] February 10, 2023 01:00 PM ORYX DAILY TOBACCO MEDS ORDERED [place] CNTR [place] [facility] Sep 02, 2022 08:00 AM VA-TOBACCO USE 30 YEARS OR MORE [place] [facility] Sep 02, 2022 08:00 AM VA-TOBACCO USE ADVICE [facility] [place] [facility] Sep 02, 2022 08:00 AM VA-TOBACCO USE CADDIE SUPERVISOR YES [facility] [place] [facility] Sep 02, 2022 08:00 AM VA-TOBACCO USE MED NOTIFY PROVIDER [place] CNTR [place] [facility] Sep 02, 2022 08:00 AM VA-TOBACCO USE WI 30 MIN OF WAKEUP [place] [facility] Sep 02, 2022 08:00 AM VA-TOBACCO USER EVERY DAY [place] [facility] Oct 12, 2016 09:13 AM QUIT TOBACCO USE 1-7 YEARS AGO [place] [facility] Sep 25, 2015 10:24 AM QUIT TOBACCO USE 1-7 YEARS AGO [place] CNTR [place] [facility] Oct 05, 2013 03:03 PM QUIT TOBACCO USE 1-7 YEARS AGO PT HAS QUIT LES THAN A YEAR AGO. [place] [facility] Oct 05, 2013 03:03 PM QUIT TOBACCO USE IN PAST YEAR [place] CNT [place] [facility] Advance Directives: All historical and current [...] Mar 06, 2023 ADVANCE DIRECTIVE BEV PETTIT [facility] Mar 06, 2023 ADVANCE DIRECTIVE DISCUSSION BEV PETTIT [facility] Apr 20, 2020 ADVANCE DIRECTIVE DISCUSSION ERUM MARTÍNEZ CB Feb 24, 2020 ADVANCE DIRECTIVE DISCUSSION POOL FUENTES [facility] Oct 30, 2016 ADVANCE DIRECTIVE CRISTELKULDEEP Jojo [facility] Radiology Reports: +/- 30 days [...] the Encounter. The data comes from all [place] treatment facilities. Date/Time Radiology Report Provider Source Jul 14, 2024 11:13 AM KNEE 3 VIEWS (LEFT ): JEYSON SANCHEZ [id number] -[id number] M Ex Date: JUL 14, 2024@11:13 Req Phys: OPAL REEVES Pat Loc: CWM/NO/PACT 4 (Req'g Loc) [facility] [place] Loc: [facility] 1 Service: [place] [address] (Case [id number] COMPLETE) KNEE 3 VIEWS (LEFT) (RAD Detailed) CPT:22097 Reason for Study: 5 yrs of left knee pain Clinical History: Report Status: Verified Date Reported: JUL 14, 2024 Date Verified: JUL 14, 2024 Host E-Sig:/ES/LIA JACINTO JR Report: Study: AP weight-bearing [...] Primary Interpreting Staff: LIA JACINTO JR, Radiologist (Host) /LIA CARPENTER JR [facility] Encounter Notes: All associated [...] Location was confirmed. /brown/ GURDEEP GRIFFITHS ADVANCED SENIOR HEALTH EDUCATOR Signed: 08/09/2024 11:54 GURDEEP GRIFFITHS [facility]
--- OUTSIDE RECORDS SUMMARY | 2024-09-03 11:37 | XMS_ITS ---
Author Name [facility] Organization [facility] [place] Address [address] [place] [address] Care Team Providers Care Hospice/Home Health Aide Name Role Phone MARTIN BOWERS Primary Care Provider OPAL Mckay Primary Care Provider Unav ailable Selected Encounter This section includes the information on record at [place] for the Encounter. Date/Time Encounter Type Encounter Description Reason Pro vider Source Aug 27, 2024 08:18 AM Outpatient Encounter TELEPHONE CASE MANAGEMENT IHE Encounter Template Text not used by [place] Plan of Treatment: Future Appointments (+ 6 [...] 20, 2024 03:00 PM AMBULATORY - MEDICINE [facility] [place] [facility] Nov 10, 2024 10:00 AM [facility] Active, Pending, and Scheduled Orders This section includes a listing of several types of active, pending, and scheduled orders, including clinic medications orders, diagnostic test orders, procedure orders and consult orders; where the start date of the order is 45 days before the date of the Encounter or 45 days after the date of theEncounter. The data comes from all [place] treatment facilities. Test Date/Time Test Type Test Details Facility Name Jul 14, 2024 10:55 AM Consult Order REHAB MEDI CINE/NHM OUTPT Cons Neurology Professor's Choice [place] [facility] [place] [facility] Jul 19, 2024 11:25 AM Consult Order COMMUNITY CARE-DENTAL GENERAL Cons Neurology Professor's Choice [facility] [place] [facility] Jul 22, 2024 08:51 AM Consult Order COMMUNITY CARE-DENTAL GENERAL Cons Neurology Professor's Choice [facility] [place] [facility] Jul 22, 2024 01:51 PM Consult Order COMMUNITY CARE-DENTAL GENERAL Cons [facility] [place] [facility] Social History: Smoking Status (Most current) [...] 2023 10:00 AM VA-TOBACCO USER EVERY DAY [facility] Tobacco Use History This section includes a history of the smoking, or tobacco-related health factors, that were collected on or before the date of the Encounter. The data comes from the [place] facility where the Encounter took place. Date/Time Smoking Status/Tobac co Use Comment Facility Nov 19, 2023 10:00 AM VA-TOBACCO USE ADVICE [place] [facility] [place] [facility] Nov 19, 2023 10:00 AM VA-TOBACCO USE ELECTRICIAN MARINE NO [place] [facility] [place] [facility] Nov 19, 2023 10:00 AM VA-TOBACCO USE MED NO [place] [facility] [place] [facility] Nov 19, 2023 10:00 AM VA-TOBACCO USE WI 30 MIN OF WAKEUP [place] [facility] [place] [facility] Nov 19, 2023 10:00 AM VA-TOBACCO USER EVERY DAY [facility] February 10, 2023 01:00 PM ORYX ADMIT TOBACCO SCREEN YES [facility] February 10, 2023 01:00 PM ORYX ADMIT TOBACCO USE CIGS GR 5D [facility] February 10, 2023 01:00 PM ORYX DAILY TOBACCO [facility]LECTRICIAN [facility] February 10, 2023 01:00 PM ORYX DAILY TOBACCO MEDS ORDERED [facility] Sep 02, 2022 08:00 AM VA-TOBACCO USE 30 YEARS OR MORE [facility] Sep 02, 2022 08:00 AM VA-TOBACCO USE ADVICE [facility] Sep 02, 2022 08:00 AM VA-TOBACCO USE ELECTRICIAN MARINE YES [facility] Sep 02, 2022 08:00 AM VA-TOBACCO USE MED NOTIFY PROVIDER [facility] Sep 02, 2022 08:00 AM VA-TOBACCO USE WI 30 MIN OF WAKEUP [facility] Sep 02, 2022 08:00 AM VA-TOBACCO USER EVERY DAY [facility] Oct 12, 2016 09:13 AM QUIT TOBACCO USE 1-7 YEARS AGO [facility] Sep 25, 2015 10:24 AM QUIT TOBACCO USE 1-7 YEARS AGO [facility] Oct 05, 2013 03:03 PM QUIT TOBACCO USE 1-7 YEARS AGO PT HAS QUIT LES THAN A YEAR AGO. [facility] Oct 05, 2013 03:03 PM QUIT TOBACCO USE IN PAST YEAR [facility] Advance Directives: All historical and current [...] 06, 2023 ADVANCE DIRECTIVE SU PETTITEstephanie Hummel [place] [facility] Mar 06, 2023 ADVANCE DIRECTIVE DISCUSSION HODANBEV Hummel [place] [facility] [place] [facility] Apr 20, 2020 ADVANCE DIRECTIVE DISCUSSION QASIM MARTÍNEZE Brian [facility] Feb 24, 2020 ADVANCE DIRECTIVE DISCUSSION [facility] Oct 30, 2016 ADVANCE DIRECTIVE KULDEEP FAM [facility] Encounter Notes: All associated encounter notes This section contains the clinical notes associated to the Encounter. Date/Time Encounter Note(s) Provider Source Aug 27, 2024 08:18 AM TRANSFER SUMMARIZA TION NOTE: LOCAL TITLE: ELECTRICAL APPLIANCE SERVICER/OCC/HOSPITAL NOTIFICATION NOTE STANDARD TITLE: TRANSFER SUMMARIZATION NOTE DATE OF NOTE: AUG 27, 2024@08:18 ENTRY DATE: AUG 27, 2024@08:18:30 AUTHOR: BLESSING PABLO EXP COSIGNER: URGENCY: STATUS: COMPLETED ELECTRICAL APPLIANCE SERVICER/OCC/HOSPITAL NOTIFICATION NOTE Has ADDENDA was in the Emergency room at [place] for a bleeding left pinky. no addtional informaton was provided on the discharge list provided by the hospital. He was discharged same day home. /travon PABLO Registered Nurse Site Supervising Technical Operator Signed: 08/27/2024 08:20 Receipt Acknowledged By: 08/27/2024 14:00 /brown/ OPAL REEVES MD PHYSICIAN 08/27/2024 10:25 /brown/ Clarita Donahue RN Primary Care Staff Nurse 08/27/2024 ADDENDUM STATUS: COMPLETED The presentation for his pinky bleeding was on 08/25. /travon PABLO Registered Nurse Site Supervising Technical Operator Signed: 08/27/2024 08:22 BLESSING PABLO [facility]
[2024-09-03 11:57] VITALS: BP 146/91; PULSE 77; RESP 19; TEMP 36.9; O2SAT 99; BMI 27.1
--- NOTE | 2024-09-03 11:57 | ED_ITS ---
HPI - General Adult General Chief complaint: Upper Respiratory Symptoms Stated complaint: might have covid Time Seen by Provider: 09/03/24 13:32 Source: patient, RN notes reviewed and old records reviewed Mode of arrival: ambulatory Limitations: no limitations History of Present Illness ED Provider: Torin DODGE narrative: 49-year-old male presents for evaluation of a cough. Patient reports a cough for the last 4 days. He is concerned for COVID-19 as his father has COPD and he lives with him. He reports increased weakness. The patient reports he had hernia repair 3-4 weeks ago at [facility]. He has no abdominal pain, nausea vomiting. Patient denies any chest pain Related Data Allergies Allergy/AdvReac Type Severity Reaction Status Date / Time No Known Allergies Allergy Verified 09/03/24 12:00 Review of Systems Constitutional: Constitutional: Reports body ache(s), Reports chills, Reports fever(s), Reports headache(s), Reports lethargy and Reports malaise Eyes: Eyes: Denies blurry vision ENT: Reports headache(s) and Denies sore throat Cardiovascular: Cardiovascular: Denies chest pain and Denies dyspnea Respiratory: Respiratory: Reports cough and Denies dyspnea Gastrointestinal: Gastrointestinal: Denies abdominal pain, Denies nausea and Denies vomiting Musculoskeletal: Musculoskeletal: Denies back pain Integumentary/Breasts: Skin/Breast: Denies rash Neurologic: Reports headache(s) Psychiatric: Psychiatric: Denies anxiety PMFSH Social History Social History Advance Directives: Yes Advance Directives Information Provided: Yes Advance Directives on File: No Do you have a plan to hurt others: No Plan Physical Exam ED Vital Signs: Vital Signs - 24 hr 09/03/24 11:57 09/03/24 13:30 09/03/24 13:34 Temperature 98.4 F 98.4 F 98.4 F Pulse Rate 77 90 90 Respiratory Rate 19 18 18 Blood Pressure 146/91 H 145/93 H 145/93 H Pulse Oximetry 99 99 99 Oxygen Delivery Method Room Air Room Air Room Air BMI result Body Mass Index 27.1 Const General: healthy appearing, comfortable, no acute distress, alert and awake Nutritional Appearance: well nourished Orientation/consciousness: patient oriented x3 HENMT Head: Yes normocephalic and Yes atraumatic Throat: Yes posterior oropharynx normal Eyes Eyelids: Yes eyelids normal Conjunctivae: conjunctivae normal Sclerae: sclerae normal Corneas: corneas normal Pupils: Equal, round and reactive pupils present EOM: EOMs intact bilaterally Neck Neck: Yes full ROM Resp Effort & Inspection: normal respiratory effort, able to speak in complete sentences, no audible wheezes and not labored Auscultation: clear to auscultation bilaterally Cardio Rate: regular rate Rhythm: regular rhythm GI Inspection: No distended Palpation (GI): Soft to palpation, not firm, nontender, no guarding and not rigid Skin General skin exam: elasticity normal Neuro General: patient oriented x3 Cranial nerves: Yes Equal, round and reactive pupils present and Yes Bilaterally intact EOM present Cognition (Neuro): normal cognition Extrem Other: Moving all extremities well without any obvious deformities Course Course Course Narrative: RME, this is a rapid medical exam performed by Munir Harkins please refer to primary provider for complete H&P- 49 year old male presents for evaluation body aches, cough, weakness and fatigue. His symptoms started 3 days ago. He reports a hernia repair at [facility] a few weeks ago. He thinks he my have COVID. Plan for viral swabs Medical Decision Making Medical Decision Making [facility] Narrative: 49-year-old male presents for evaluation of flu-like symptoms. His vital signs are within normal limits. Lungs are clear to auscultation. Viral swabs are negative. The patient will be discharged home put encouraged to retest in 2-3 days if his symptoms persist. Differential Diagnosis Differential Diagnoses: The differential diagnosis associated with the presentation includes Viral syndrome COVID-19 Influenza Pneumonia Bronchitis Upper respiratory infection Lab Data [facility] Lab Attestation statement: I reviewed the patient's lab results. Negative for influenza, COVID, RSV Labs: Lab Results 09/03/24 Range/Units 12:23 Influenza Type A (PCR) NEGATIVE (Negative) Influenza Type B (PCR) NEGATIVE (Negative) RSV RNA Qual (PCR) NEGATIVE (Negative) SARS-CoV-2 RNA (RT-PCR) NEGATIVE (Negative) Discharge Plan Discharge Clinical Impression: Viral infection Patient Disposition: Home, Self-Care Instructions: Viral Syndrome (ED) Additional Instructions: You tested negative for influenza, COVID-19, RSV. If your symptoms persist I recommend repeating a test in 2-3 days. If you get tested early on in your symptoms course, you may have a false negative Use ibuprofen/Tylenol for fevers, body aches Interventions: ED Discharge Assessment Last Done: 09/03/24 13:34 Discharge Date/Time: 09/03/24 13:35 Print Language: Cypriot
--- OUTSIDE RECORDS SUMMARY | 2024-09-03 12:31 | XMS_ITS | Continuity of Care Document ---
Author Name [facility] Organization [facility] Care Team Providers Care Mapping Technician Name Role Phone [facility] Unavailable Unavailable Problems Combined list of problems from Department of Defense and Veterans Affairs facilities. It does not include entries that were removed or entered in error. Problem Status Onset Date Problem Type Date of Resolution Comments Source Asthma (SNOMED CT 802654820) Active 014 Condition [facility] Left knee pain (SNOMED CT [id number]) Active 014 Condition Jul 14, 2024 Entered [...] red indications on his peak flow met [facility] Blood Pressure Isolated Elevated Inactive Condition [facility] visit for: screening exam Inactive Condition [facility] Acute back pain - lumbar Active Condition [facility] [place] [facility] Alcohol abuse Active Condition Nov Entered By: KOLBY SCHWARZ Comment: Rehab x 2 [facility] Alcohol dependence Active Condition [facility] Asthma Active Condition [facility] Bipolar disorder Active Condition [facility] Bipolar II disorder Active Condition [facility] Bipolar II disorder, most recent episode hypomanic Active Condition [facility] Cannabis dependence [facility] [place] [facility] Exposure to potentially hazardous substance Active Condition Nov 12, 2023 Entered By: TESS SMALLWOOD Comment: Original PORTIA Screen completed on 09/02/22 [facility] [place] [facility] Exposure to Potentially Hazardous Substance ([facility] [id number]) Active Condition [facility] Family history of malignant neoplasm of colon over age 50 Active Condition Jul 14, 2024 Entered By: DARLENE REEVES Comment: FH of colon cancer in Father, father alive age 77 in 2023 [facility] [place] [facility] Gastroesophageal reflux disease Active Condition [facility] HLD - Hyperlipidemia Active Condition [facility] Homeless Active [facility] [place] [facility] HTN-Hypertension (SCT 27179064) Active Condition [facility] Hyperlipidemia (SCT 08463997) Active Condition [facility] Hypertension Active Condition Jul 14, 2024 Entered By: DARLENE REEVES Comment: vet resumed using amlodipine 5/ BP at home improving [facility] [facility] Inguinal hernia Active Condition Jun 09, 2024 Entered By: DARLENE REEVES Comment: vet had CT confirming left inguinal hernia February 2023 [facility] Lack of Housing (ICD-9-CM V60.0) Active Condition [facility] ([facility]) Nicotine dependence Active Condition [facility] Pain in left knee (SNOMED CT [id number]) Active Condition Nov 27 8 Entered By: KOLBY SCHWARZ Comment: Arthroscopic surgeries x 2 [facility] Positive PPD Active Condition Sep 02, 2022 Entered By: FABRICIO PRINCE Comment: Status post 1 year of treatment with tb meds [facility] Schizoaffective disorder, bipolar type Active Condition [facility] Severe alcohol dependence Active Condition [facility] Tinea unguium Active Condition [facility] [...] lenses Active Diagnosis [facility] [place] [facility] Diagnosis: ICD-10-CM H25.013 Cortical age-related cataract, bilateral Active Diagnosis [facility] UBALDO RANGEL [facility] Diagnosis: ICD-10-CM J45.998 Other asthma Active Diagnosis [facility] [place] Diagnosis: ICD-10-CM Z59.01 Sheltered homelessness Active Diagnosis [facility] [place] CHELSEAYARY [facility] Diagnosis: ICD-10-CM F12.20 Cannabis dependence, uncomplicated [facility] Diagnosis: ICD-10-CM F31.9 Bipolar disorder, unspecified Active [facility] Diagnosis: ICD-10-CM Z13.6 Encounter for screening for cardiovascular disorders Active Diagnosis [facility] Diagnosis: ICD-10-CM K40.91 Unilateral inguinal hernia, w/o obst or gangrene, recurrent Active Diagnosis [facility] Diagnosis: ICD-10-CM K45.8 Oth abdominal hernia without obstruction or gangrene Active Diagnosis [facility] [place] [facility] Diagnosis: ICD-10-CM K08.9 Disorder of teeth and supporting structures, unspecified Active Diagnosis [facility] Medications Combined list of outpatient medications from Department of Defense and [facility] Affairs facilities.Medications provided include 1) outpatient medications from the last 15 months, and 2) patient-reported medications. Medication Details Route Status Patient Instructions Prescription Expires Prescription Number Last Dispense Date Ordering Provider Order Date Order Qty Source ACETAMINOPH EN 500MG TAB TAKE TWO TABLETS BY MOUTH TWICE DAILY NEEDED ORAL ACTIVE 06/10/2025 [id number] AMELIA HARTLEY 2023 100 [facility] ACETAMINOPH EN 500MG TAB TAKE TWO TABLETS BY MOUTH TWICE DAILY NEEDED ORAL DISCONT INUED 04/01/2024 [id number] 4 DESIRAE PEREZ 2022 60 [facility] ALBUTEROL 90MCG/ACTUA T (CFC-F) INHL,ORAL,8 .5GM DOSE COUNTER INHALE 2 PUFFS BY MOUTH FOUR TIMES DAILY NEEDED RESPIR ATORY (INHAL ATION) ACTIVE 06/10/2025 [id number] 4 AMELIA HARTLEY 2023 3 [facility] ALBUTEROL 90MCG/ACTUA T (CFC-F) INHL,ORAL,8 .5GM DOSE COUNTER INHALE 2 PUFFS BY MOUTH FOUR TIMES DAILY NEEDED FOR BRONCHOS PASM RESPIR ATORY (INHAL ATION) DISCONT INUED (EDIT) 06/19/2024 [id number] 3 RA SARAY LOWRY 2022 3 [facility] AMLODIPINE BESYLATE 5MG TAB TAKE ONE TABLET BY MOUTH ONCE DAILY FOR BLOOD PRESSURE /HEART, DO NOT TAKE WITH GRAPEFRU IT JUICE ORAL ACTIVE 06/10/2025 [id number] 4 AMELIA HARTLEY 2023 90 [facility] INDOMETHACI N 50MG CAP TAKE ONE CAPSULE BY MOUTH TWICE DAILY NEEDED FOR GOUT ORAL ACTIVE 07/02/2025 [id number] 4 AMELIA HARTLEY 2023 60 [facility] LIDOCAINE 5% PATCH APPLY 1 PATCH TOPICALL Y ONCE DAILY FOR NERVE PAIN (LEAVE PATCH ON FOR 12 HOURS, THEN REMOVE PATCH) TOPICA L SUSPEND ED 07/29/2025 [id number] 4 AMELIA HARTLEY 2023 30 [facility] METHOCARBAM OL 750MG TAB TAKE ONE TABLET BY MOUTH THREE TIMES DAILY NEEDED ORAL 04/01/2024 [id number] 4 DESIRAE PEREZ 2022 45 [facility] MULTIVITAMI NS W/MINERALS CAP/TAB TAKE ONE CAP/TAB BY MOUTH ONCE DAILY ORAL ACTIVE 06/10/2025 [id number] 4 AMELIA HARTLEY 2023 100 [facility] OLANZAPINE 5MG TAB TAKE ONE TABLET BY MOUTH AT BEDTIME ORAL DISCONT INUED BY PRICNE R 11/19/2024 [id number] 4 JAMES LONG MD 2023 30 [facility] OLANZAPINE 5MG TAB TAKE ONE TABLET BY MOUTH AT BEDTIME ORAL DISCONT INUED (EDIT) 08/08/2024 [id number] 4 JAMES LONG MD 2022 30 [facility] OLANZAPINE 5MG TAB TAKE ONE TABLET BY MOUTH AT BEDTIME ORAL DISCONT INUED (EDIT) 07/17/2024 [id number] JAMES LONG MD 2022 30 [facility] OMEPRAZOLE 20MG CAP,EC TAKE 1 CAPSULE BY MOUTH EVERY MORNING 30 MINUTES BEFORE BREAKFAS T ORAL ACTIVE AMELIA HARTLEY 2023 [facility] QUETIAPINE FUMARATE 100MG TAB TAKE ONE TABLET BY MOUTH AT BEDTIME AND TAKE ONE TABLET AT BEDTIME NEEDED AND TAKE ONE TABLET AT BEDTIME NEEDED SCHIZOAF FECTIVE BIPOLAR/ SLEEP ORAL ACTIVE 07/29/2025 [id number] 4 JAMES LONG MD 2023 90 [facility] QUETIAPINE FUMARATE 100MG TAB TAKE ONE TABLET BY MOUTH AT BEDTIME AND TAKE ONE TABLET AT BEDTIME NEEDED AND TAKE ONE TABLET AT BEDTIME NEEDED SCHIZOAF FECTIVE BIPOLAR/ SLEEP ORAL DISCONT INUED (EDIT) 06/18/2025 [id number] 4 JAMES LONG MD 2023 90 [facility] TRAZODONE HCL 100MG TAB TAKE ONE TABLET BY MOUTH AT BEDTIME AND TAKE ONE-HALF TABLET AT BEDTIME NEEDED SLEEP ORAL ACTIVE 07/29/2025 [id number] 4 JAMES LONG MD 2023 45 [facility] TRAZODONE HCL 100MG TAB TAKE ONE TABLET BY MOUTH AT BEDTIME AND TAKE ONE-HALF TABLET AT BEDTIME NEEDED SLEEP ORAL DISCONT INUED (EDIT) 06/18/2025 [id number] JAMES LONG MD 2023 45 [facility] [place] [facility] Allergies, Adverse Reactions, Alerts Combined list of allergies from Department of Defense and Veterans Affairs facilities. It does not include entries that were removed or entered in error. Substance Category Reaction Severity Reaction type Status Date Reported Comments Source CATS Propensity to adverse reaction (finding) active 3 [facility] CATS Propensity to adverse reaction (finding) Urticaria active 0 [facility] No Known Allergies Drug allergy (disorder) active 7 [place] TUBERCULIN, PURIFIED PROTEIN DERIVATIVE Propensity to adverse reactions to drug (finding) Eruption active 0 [facility] Immunizations Combined list of available immunizations from the Department of Defense and Veterans Affairs facilities. Immunization Series Date Given Administered By Site Reaction Lot Number CVX Code Drug Software Test Developer Status Comments Source INFLUENZA, SPLIT VIRUS, TRIVALENT, PF 2023 RACHEL VALENCIA LEFT DELTO ID [id number] complet ed [facility] [place] COVID-19 (MODERNA), MRNA, LNP-S, PF, 100 MCG/0.5ML DOSE OR 50 MCG/0.25ML DOSE 1 2021 NEMO ANDREW LEFT DELTO ID [id number] 207 complet ed [facility] [place] [facility] TDAP 2017 115 complet ed [facility] FLU,3 YRS (HISTORICAL) 2015 88 complet ed Site: Left Deltoid [facility] [place] [facility] PNEUMOCOCCAL POLYSACCHARID E PPV23 2015 33 complet ed [facility] [place] [facility] DTAP, UNSPECIFIED FORMULATION 2013 107 complet ed Site: Right Deltoid [facility] [place] [facility] FLU,3 YRS (HISTORICAL) 2013 88 complet ed Site: Right Deltoid [facility] [place] [facility] tetanus and diphtheria toxoids, [...] antigen)-reti red CODE 0 2005 Unknown, Provider [id number] 15 Polatis ([facility]) complet ed influenza virus vaccine, split virus [...] Vi capsular polysaccharid e vaccine 1 2005 MIALGRO SINGLETON [id number] Sanofi Pasteur ([facility]) complet ed typhoid Vi capsular polysacch aride [...] antigen)-reti red CODE 1 1999 Unknown, Provider [id number] 15 Maida (ROSA) complet ed influenza virus [...] PM Reporting Lab: [facility] [place] [facility] [address] [facility] [address] Performing Lab: [facility] [place] [facility] [address] [facility] [address] [facility] [place] [facility] LIPID PANEL FASTING TRIGLYCERI DE [MASS/VOLU ME] IN SERUM OR PLASMA 70 mg/dL 0 - 150 07/06 Specimen Type: SERUM No comment entered. Ordering Provider: SINA LONG MD Report Released Date/Time: Jun 17, 2024 02:14 PM Reporting Lab: [facility] [place] [address] [address] Performing Lab: [facility] [place] [address] [address] [facility] LIPID PANEL FASTING CHOLESTERO L IN LDL [MASS/VOLU ME] IN SERUM OR PLASMA BY CALCELOYO N 171 mg/dL 0 - 129 07/06 H Specimen Type: SERUM No comment entered. Ordering Provider: SINA LONG MD Report Released Date/Time: Jun 17, 2024 02:14 PM Reporting Lab: [facility] [place] [address] [address] Performing Lab: [facility] [place] [address] [address] [facility] [facility] LIPID PANEL FASTING CHOLESTERO L.TOTAL/CH OLESTEROL IN HDL [MASS RATIO] IN SERUM OR PLASMA 3.8 07/06 Specimen Type: SERUM No comment entered. Ordering Provider: SINA LONG MD Report Released Date/Time: Jun 17, 2024 02:14 PM Reporting Lab: [facility] [place] [address] [address] Performing Lab: [facility]USE[facility] [address] [facility] [address] [facility]N [facility]USE [facility] LIPID PANEL FASTING CHOLESTERO L IN HDL [MASS/VOLU ME] IN SERUM OR PLASMA 66 mg/dL 40 - 60 07/06 H Specimen Type: SERUM No comment entered. Ordering Provider: SINA LONG MD Report Released Date/Time: Jun 17, 2024 02:14 PM Reporting Lab: [facility] [address] [facility] [address] Performing Lab: [facility] TRN [address] [address] [facility]ITALRLAMAR [facility]IONAL HOSPITALN [facility]ENTERUSE [facility] BASIC METABOLI C PANEL (non-fas ting) UREA NITROGEN [MASS/VOLU ME] IN SERUM OR PLASMA 19 mg/dL 7 - 25 07/06 Specimen Type: SERUM No comment entered. Ordering Provider: OPAL RAZO Report Released Date/Time: Jul 01, 2024 03:56 PM Reporting Lab: [facility]ENTERUSE[address] [address] Performing Lab: [facility]ENTERUSE[address] [address] [facility]N [facility] BASIC METABOLI C PANEL (non-fas ting) GLUCOSE [MASS/VOLU ME] IN SERUM OR PLASMA 90 mg/dL 65 - 100 07/06 Specimen Type: SERUM No comment entered. Ordering Provider: OPAL RAZO Report Released Date/Time: Jul 01, 2024 03:56 PM Reporting Lab: [facility]ENTERUSE[address] [address] Performing Lab: [facility] CENTERUSE[address] [address] [facility]ITALRLAM[facility] HOSPITALN [facility] BASIC METABOLI C PANEL (non-fas ting) SODIUM [MOLES/VOL UME] IN SERUM OR PLASMA 139 mmol/L 135 - 145 07/06 Specimen Type: SERUM No comment entered. Ordering Provider: OPAL RAZO Report Released Date/Time: Jul 01, 2024 03:56 PM Reporting Lab: ID [facility]L [facility]N [facility] CENTERUSETS [address] [address] Performing Lab: [facility] CENTERUSETS [address] [address] [facility] BASIC METABOLI C PANEL (non-fas ting) POTASSIUM [MOLES/VOL UME] IN SERUM OR PLASMA 4.8 mmol/L 3.5 - 5.0 07/06 Specimen Type: SERUM No comment entered. Ordering Provider: OPAL RAZO Report Released Date/Time: Jul 01, 2024 03:56 PM Reporting Lab: ID [facility]L [facility] CENTERUSETS [address] [address] Performing Lab: [facility]ENTERUSE[address] [address] [facility]ENTERUSE [facility] BASIC METABOLI C PANEL (non-fas ting) CHLORIDE [MOLES/VOL UME] IN SERUM OR PLASMA 104 mmol/L 100 - 110 07/06 Specimen Type: SERUM No comment entered. Ordering Provider: OPAL RAZO Report Released Date/Time: Jul 01, 2024 03:56 PM Reporting Lab: [facility]ENTERUSE[address] [address] Performing Lab: [facility] CENTERUSETS [address] [address] [facility]ENTERUSE [facility] BASIC METABOLI C PANEL (non-fas ting) CARBON DIOXIDE, TOTAL [MOLES/VOL UME] IN SERUM OR PLASMA 26 meq/L 20 - 30 07/06 Specimen Type: SERUM No comment entered. Ordering Provider: OPAL RAZO Report Released Date/Time: Jul 01, 2024 03:56 PM Reporting Lab: [facility]ENTERUSE[address] [address] Performing Lab: [facility] [place] [address] [place] [address] [facility]RL TRN [facility]ENTERUSE [facility] BASIC METABOLI C PANEL (non-fas ting) CREATININE [MASS/VOLU ME] IN SERUM OR PLASMA 1.04 mg/dL 0.50 - 1.40 07/06 Specimen Type: SERUM No comment entered. Ordering Provider: OPAL RAZO Report Released Date/Time: Jul 01, 2024 03:56 PM Reporting Lab: [facility]ENTERUSE[facility] [address] [facility] [address] Performing Lab: ID CN[facility]L [facility]ENTERUSE[facility] [address] [facility] [address] [facility]ITALRLAM[facility] HOSPITALN [facility]ENTERUSE [facility] BASIC METABOLI C PANEL (non-fas ting) GLOMERULAR FILTRATION RATE/1.73 SQ M.PREDICTE D [VOLUME RATE/AREA] IN SERUM, PLASMA OR BLOOD BY CREATININE -BASED FORMULA (CKD-EPI 2020) 87 mL/min 60 07/06 Specimen Type: SERUM No comment entered. Ordering Provider: OPAL RAZO Report Released Date/Time: Jul 01, 2024 03:56 PM Reporting Lab: [facility]PITALRLAMAR REGIONAL HOSPITALN [address] [address] Performing Lab: [facility]ITALRL [facility] SERVICESN [address] [address] [facility] CALCIUM CALCIUM [MASS/VOLU ME] IN SERUM OR PLASMA 9.8 mg/dL 8.5 - 10.2 07/06 Specimen Type: SERUM No comment entered. Ordering Provider: OPAL RAZO Report Released Date/Time: Jul 01, 2024 03:56 PM Reporting Lab: [facility]ITALRLAMAR [facility]IONAL HOSPITALN [facility]ENTERUSE[address] [address] Performing Lab: [facility]ITALRLAM[facility]IONAL HOSPITALN [facility]ENTERUSE[address] [address] [facility] CBC AND DIFF (AUTO) LEUKOCYTES [#/VOLUME] IN BLOOD BY AUTOMATED COUNT 8.69 10*3/uL 4.50 - 11.00 07/06 Specimen Type: BLOOD No comment entered. Ordering Provider: OPAL RZAO Report Released Date/Time: Jul 01, 2024 03:56 PM Reporting Lab: [facility] [place] [facility] [address] [facility] [address] Performing Lab: [facility] [place] [facility] [address] [facility] [address] [facility] [place] [facility] CBC AND DIFF (AUTO) ERYTHROCYT ES [#/VOLUME] IN BLOOD BY AUTOMATED COUNT 5.01 10*6/uL 4.23 - 5.66 07/06 Specimen Type: BLOOD No comment entered. Ordering Provider: OPAL RAZO Report Released Date/Time: Jul 01, 2024 03:56 PM Reporting Lab: [facility] [place] [address] [address] Performing Lab: [facility] [place] [facility] [address] [facility] [address] [facility] [place] [facility] CBC AND DIFF (AUTO) HEMOGLOBIN [MASS/VOLU ME] IN BLOOD 16.3 g/dL 12.8 - 17 07/06 Specimen Type: BLOOD No comment entered. Ordering Provider: OPAL RAZO Report Released Date/Time: Jul 01, 2024 03:56 PM Reporting Lab: [facility] [place] [address] [address] Performing Lab: [facility] [place] [facility] [address] [facility] [address] [facility] [place] [facility] CBC AND DIFF (AUTO) HEMATOCRIT [VOLUME FRACTION] OF BLOOD BY AUTOMATED COUNT 47.3 39.2 - 50.4 07/06 Specimen Type: BLOOD No comment entered. Ordering Provider: OPAL RAZO Report Released Date/Time: Jul 01, 2024 03:56 PM Reporting Lab: [facility] [place] [address] [address] Performing Lab: [facility] [place] [address] [address] [facility] [facility] CBC AND DIFF (AUTO) MCV [ENTITIC VOLUME] BY AUTOMATED COUNT 94.4 fL 82 - 99 07/06 Specimen Type: BLOOD No comment entered. Ordering Provider: OPAL RAZO Report Released Date/Time: Jul 01, 2024 03:56 PM Reporting Lab: [facility] [place] [facility] [address] [facility] [address] Performing Lab: [facility] [place] [facility] [address] [facility] [address] [facility] [place] [facility] CBC AND DIFF (AUTO) MCHC [MASS/VOLU ME] BY AUTOMATED COUNT 34.5 g/dL 30.8 - 35.1 07/06 Specimen Type: BLOOD No comment entered. Ordering Provider: OPAL RAZO Report Released Date/Time: Jul 01, 2024 03:56 PM Reporting Lab: [facility] [place] [address] [address] Performing Lab: [facility] [place] [address] [address] [facility] [facility] CBC AND DIFF (AUTO) PLATELETS [#/VOLUME] IN BLOOD BY AUTOMATED COUNT 282 10*3/uL 140 - 360 07/06 Specimen Type: BLOOD No comment entered. Ordering Provider: OPAL RAZO Report Released Date/Time: Jul 01, 2024 03:56 PM Reporting Lab: [facility] [place] [address] [address] Performing Lab: [facility] [place] [address] [address] [facility] [facility] CBC AND DIFF (AUTO) ERYTHROCYT E DISTRIBUTI ON WIDTH [RATIO] BY AUTOMATED COUNT 12.7 12.0 - 16.0 07/06 Specimen Type: BLOOD No comment entered. Ordering Provider: OPAL RAZO Report Released Date/Time: Jul 01, 2024 03:56 PM Reporting Lab: [facility] [place] [facility] [address] [facility] [address] Performing Lab: [facility] [place] [facility] [address] [facility] [address] [facility] CBC AND DIFF (AUTO) MONOCYTES [#/VOLUME] IN BLOOD BY AUTOMATED COUNT 0.49 10*3/uL 0.30 - 1.10 07/06 Specimen Type: BLOOD No comment entered. Ordering Provider: OPAL RAZO Report Released Date/Time: Jul 01, 2024 03:56 PM Reporting Lab: [facility] [place] [facility] [address] [facility] [address] Performing Lab: [facility] [place] [facility] [address] [facility] [address] [facility] CBC AND DIFF (AUTO) MCH [ENTITIC MASS] BY AUTOMATED COUNT 32.5 pg 26.2 - 32.6 07/06 Specimen Type: BLOOD No comment entered. Ordering Provider: OPAL RAZO Report Released Date/Time: Jul 01, 2024 03:56 PM Reporting Lab: [facility] [place] [address] [address] Performing Lab: [facility] [place] [facility] [address] [facility] [address] [facility] [place] [facility] CBC AND DIFF (AUTO) NEUTROPHIL S/100 LEUKOCYTES IN BLOOD BY AUTOMATED COUNT 70.3 43.7 - 75.8 07/06 Specimen Type: BLOOD No comment entered. Ordering Provider: OPAL RAZO Report Released Date/Time: Jul 01, 2024 03:56 PM Reporting Lab: [facility] [place] [facility] [address] [facility] [address] Performing Lab: [facility] [place] [facility] [address] [facility] [address] [facility] [place] [facility] CBC AND DIFF (AUTO) LYMPHOCYTE S/100 LEUKOCYTES IN BLOOD BY AUTOMATED COUNT 22.3 14.0 - 42.3 07/06 Specimen Type: BLOOD No comment entered. Ordering Provider: OPAL RAZO Report Released Date/Time: Jul 01, 2024 03:56 PM Reporting Lab: [facility] [place] [facility] [address] [facility] [address] Performing Lab: [facility] [place] [facility] [address] [facility] [address] [facility] [place] [facility] CBC AND DIFF (AUTO) MONOCYTES/ 100 LEUKOCYTES IN BLOOD BY AUTOMATED COUNT 5.6 5.1 - 13.7 07/06 Specimen Type: BLOOD No comment entered. Ordering Provider: OPAL RAZO Report Released Date/Time: Jul 01, 2024 03:56 PM Reporting Lab: [facility] [place] [facility] [address] [facility] [id number] Performing Lab: [facility] [place] [facility] [address] [facility] [id number] [facility] CBC AND DIFF (AUTO) EOSINOPHIL S/100 LEUKOCYTES IN BLOOD BY AUTOMATED COUNT 0.6 0.4 - 6.8 07/06 Specimen Type: BLOOD No comment entered. Ordering Provider: OPAL RAZO Report Released Date/Time: Jul 01, 2024 03:56 PM Reporting Lab: [facility] [place] [facility] [address] [facility] [address] Performing Lab: [facility] [address] [facility] [address] [facility] CBC AND DIFF (AUTO) BASOPHILS/ 100 LEUKOCYTES IN BLOOD BY AUTOMATED COUNT 0.7 0.1 - 2.0 07/06 Specimen Type: BLOOD No comment entered. Ordering Provider: OPAL RAZO Report Released Date/Time: Jul 01, 2024 03:56 PM Reporting Lab: [facility] [address] [facility] [address] Performing Lab: [facility] [address] [facility] [address] [facility] CBC AND DIFF (AUTO) NEUTROPHIL S [#/VOLUME] IN BLOOD BY AUTOMATED COUNT 6.11 10*3/uL 2.20 - 7.60 07/06 Specimen Type: BLOOD No comment entered. Ordering Provider: OPAL RAZO Report Released Date/Time: Jul 01, 2024 03:56 PM Reporting Lab: [facility]-TUSCALOOSATRN [facility]ENTERUSETS [address] [address] Performing Lab: [facility] [address] [address] [facility]ENTERUSE TS [facility] CBC AND DIFF (AUTO) LYMPHOCYTE S [#/VOLUME] IN BLOOD BY AUTOMATED COUNT 1.94 10*3/uL 1.00 - 3.20 07/06 Specimen Type: BLOOD No comment entered. Ordering Provider: OPAL RAZO Report Released Date/Time: Jul 01, 2024 03:56 PM Reporting Lab: [facility]ITALRL W[facility]N [facility] CENTERUSETS [address] [address] Performing Lab: [facility]L [facility]ENTERUSETS [address] [id number] [place], [place] [address]RL WSTRN [facility] CENTERUSE TS [facility] CBC AND DIFF (AUTO) EOSINOPHIL S [#/VOLUME] IN BLOOD BY AUTOMATED COUNT 0.05 10*3/uL 0.03 - 0.44 07/06 Specimen Type: BLOOD No comment entered. Ordering Provider: OPAL RAZO Report Released Date/Time: Jul 01, 2024 03:56 PM Reporting Lab: [facility] [place] [facility] [address] [facility] [address] Performing Lab: [facility]ENTERUSETS [address] [address] [facility] [place] [facility] CBC AND DIFF (AUTO) BASOPHILS [#/VOLUME] IN BLOOD BY AUTOMATED COUNT 0.06 10*3/uL 0.01 - 0.13 07/06 Specimen Type: BLOOD No comment entered. Ordering Provider: OPAL RAZO Report Released Date/Time: Jul 01, 2024 03:56 PM Reporting Lab: [facility] [place] [facility] [address] [facility] [address] Performing Lab: [facility] [place] [facility] [address] [facility] [address] [facility] [place] [facility] CBC AND DIFF (AUTO) IMMATURE GRANULOCYT ES/100 LEUKOCYTES IN BLOOD BY AUTOMATED COUNT 0.5 0.0 - 0.7 07/06 Specimen Type: BLOOD No comment entered. Ordering Provider: OPAL RAZO Report Released Date/Time: Jul 01, 2024 03:56 PM Reporting Lab: [facility] [place] [address] [address] Performing Lab: [facility] [place] [address] [address] [facility] [place] [facility] CBC AND DIFF (AUTO) IMMATURE GRANULOCYT ES [#/VOLUME] IN BLOOD 0.04 10*3/uL 0.00 - 0.06 07/06 Specimen Type: BLOOD No comment entered. Ordering Provider: OPAL RAZO Report Released Date/Time: Jul 01, 2024 03:56 PM Reporting Lab: [facility] [place] [address] [address] Performing Lab: ID [facility]L [facility] [address] [address] [facility]ITALRL W[facility]N [facility] HOSPITALCHUSE TS [facility] CBC AND DIFF (AUTO) NRBC % 0.0 0.0 - 0.0 07/06 Specimen Type: BLOOD No comment entered. Ordering Provider: OPAL RAZO Report Released Date/Time: Jul 01, 2024 03:56 PM Reporting Lab: [facility] [place] [address] [address] Performing Lab: [facility] [place] [address] [address] [facility] [place] [facility] CBC AND DIFF (AUTO) NRBC, ABS 0.00 10*3/uL 0.00 - 0.00 07/06 Specimen Type: BLOOD No comment entered. Ordering Provider: OPAL RAZO Report Released Date/Time: Jul 01, 2024 03:56 PM Reporting Lab: [facility]OSPITALRL W[facility]N [facility]ENTERUSEMEDISYS [facility] [address] [facility] [address] Performing Lab: ID CNTRL [facility] CENTERUSEMEDISYS [facility] [address] [facility] [address] [facility]OSPITALRLAMAR REGIONAL HOSPITALN [facility] CENTERUSE [facility] HEMOGLOB IN A1C PANEL HEMOGLOBIN A1C/HEMOGL OBIN.TOTAL [...] Jul 01, 2024 03:56 PM Reporting Lab: [facility]OSPITALRL TRN [facility] CENTERUSE[address] [address] Performing Lab: [facility]OSPITALRL TRN [facility]ENTERUSE[address] [address] [facility]OSPITALRLAMAR REGIONAL HOSPITALN [facility] LIVER FUNCTION PROTEIN [MASS/VOLU ME] IN SERUM OR PLASMA 7.4 g/dL 6.0 - 8.3 07/06 Specimen Type: SERUM No comment entered. Ordering Provider: OPAL RAZO Report Released Date/Time: Jul 01, 2024 03:56 PM Reporting Lab: [facility]OSPITALRL W[facility]N [facility] CENTERUSETS [address] [address] Performing Lab: [facility]PITALRL WSTRN [facility] CENTERUSE[address] [address] [facility]OSPITALRLAMAR REGIONAL HOSPITALN [facility] CENTERUSE [facility] LIVER FUNCTION ALBUMIN [MASS/VOLU ME] IN SERUM OR PLASMA 4.4 g/dL 3.5 - 5.0 07/06 Specimen Type: SERUM No comment entered. Ordering Provider: OPAL RAZO Report Released Date/Time: Jul 01, 2024 03:56 PM Reporting Lab: [facility] [place] [facility] [address] [facility] [address] Performing Lab: [facility] [address] [facility] [address] [facility] [place] [facility] LIVER FUNCTION ALKALINE PHOSPHATAS E [ENZYMATIC ACTIVITY/V OLUME] IN SERUM OR PLASMA 95 U/L 40 - 150 07/06 Specimen Type: SERUM No comment entered. Ordering Provider: OPAL RAZO Report Released Date/Time: Jul 01, 2024 03:56 PM Reporting Lab: [facility] [place] [facility] [address] [facility] [address] Performing Lab: [facility] [place] [facility] [address] [facility] [address] [facility] [place] [facility] LIVER FUNCTION ASPARTATE AMINOTRANS FERASE [ENZYMATIC ACTIVITY/V OLUME] IN SERUM OR PLASMA 21 U/L 5 - 34 07/06 Specimen Type: SERUM No comment entered. Ordering Provider: OPAL RAZO Report Released Date/Time: Jul 01, 2024 03:56 PM Reporting Lab: [facility] [place] [facility] [address] [facility] [address] Performing Lab: [facility] [place] [facility] [address] [facility] [address] [facility] [place] [facility] LIVER FUNCTION ALANINE AMINOTRANS FERASE [ENZYMATIC ACTIVITY/V OLUME] IN SERUM OR PLASMA 34 U/L 07/06 Specimen Type: SERUM No comment entered. Ordering Provider: OPAL RAZO Report Released Date/Time: Jul 01, 2024 03:56 PM Reporting Lab: [facility] [place] [facility] [address] [facility] [address] Performing Lab: [facility] [place] [facility] [address] [facility] [address] [facility] [place] [facility] LIVER FUNCTION BILIRUBIN. TOTAL [MASS/VOLU ME] IN SERUM OR PLASMA 0.4 mg/dL 0.2 - 1.2 07/06 Specimen Type: SERUM No comment entered. Ordering Provider: OPAL RAZO Report Released Date/Time: Jul 01, 2024 03:56 PM Reporting Lab: [address] [address] Performing Lab: [address] [address] [facility] T-SPOT TB PANEL MYCOBACTER IUM TUBERCULOS [...] additional information , please refer to http://educ ation.[facility] .com/faq/FA Q215 (This link is being provided for information al/ educational purposes only.) Test Performed by [employer] [place], [place] [facility], [address] [place] [address] Mal Freeman M.D., Ph.D., Director of Laboratorie s , CLIA [id number] TEST PERFORMED AT: , Ordering Provider: OPAL RAZO Report Released Date/Time: Jul 10, 2023 10:22 AM Reporting Lab: [address] [place] [address] Performing Lab: [facility] [address] [address] [facility] T-SPOT TB PANEL MYCOBACTER IUM TUBERCULOS [...] additional information , please refer to http://educ ation.[facility] .com/faq/FA Q215 (This link is being provided for information al/ educational purposes only.) Test Performed by [facility], [place] [facility], [address] [place] [address] Mal Freeman M.D., Ph.D., Director of Laboratorie s , CLIA [id number] TEST PERFORMED AT: , Ordering Provider: OPAL RAZO Report Released Date/Time: Jul 10, 2023 10:22 AM Reporting Lab: [facility] [address] [facility] [address] Performing Lab: [facility] [address] [address] [facility] T-SPOT TB PANEL MYCOBACTER IUM TUBERCULOS [...] additional information , please refer to http://educ ation.[facility] .com/faq/FA Q215 (This link is being provided for information al/ educational purposes only.) Test Performed by [employer] [place], [place] [facility], [address] [place] [address] Mal Freeman M.D., Ph.D., Director of Laboratorie s , CLIA [id number] TEST PERFORMED AT: , Ordering Provider: OPAL RAZO Report Released Date/Time: Jul 10, 2023 10:22 AM Reporting Lab: [facility] [address] [facility] [address] Performing Lab: [facility] [address] [address] [facility] T-SPOT TB PANEL MITOGEN STIMULATED GAMMA [...] additional information , please refer to http://educ ation.[facility] .[employer]/faq/FA Q215 (This link is being provided for information al/ educational purposes only.) Test Performed by [facility] HospitalSal[facility], [place] [facility], [address] [place] [address] Mal Freeman M.D., Ph.D., Director of Laboratorie s , CLIA [id number] TEST PERFORMED AT: , Ordering Provider: OPAL RAZO Report Released Date/Time: Jul 10, 2023 10:22 AM Reporting Lab: [facility] [address] [facility] [address] Performing Lab: [facility] [address] [address] [facility] T-SPOT TB PANEL GAMMA INTERFERON NEGATIVE [...] additional information , please refer to http://educ ation.[facility] .[employer]/faq/FA Q215 (This link is being provided for information al/ educational purposes only.) Test Performed by [employer], [place] [facility], [address] [place] [address] Mal Freeman M.D., Ph.D., Director of Laboratorie s , CLIA [id number] TEST PERFORMED AT: , Ordering Provider: OPAL RAZO Report Released Date/Time: Jul 10, 2023 10:22 AM Reporting Lab: [address] [address] Performing Lab: [place] [address] LIVER FUNCTION PROTEIN [MASS/VOLU ME] IN SERUM OR PLASMA 6.7 g/dL 6.0 - 8.3 03/31 Specimen Type: SERUM No comment entered. Ordering Provider: JULES PEREZ Report Released Date/Time: Mar 30, 2023 12:31 PM Reporting Lab: [address] [address] Performing Lab: [address] [address] [facility] LIVER FUNCTION ALBUMIN [MASS/VOLU ME] IN SERUM OR PLASMA 4.1 g/dL 3.5 - 5.0 03/31 Specimen Type: SERUM No comment entered. Ordering Provider: JULES PEREZ Report Released Date/Time: Mar 30, 2023 12:31 PM Reporting Lab: [facility] [place] [facility] [address] [facility] [address] Performing Lab: [facility] [place] [facility] [address] [facility] [address] [facility] [place] [facility] LIVER FUNCTION ALKALINE PHOSPHATAS E [ENZYMATIC ACTIVITY/V OLUME] IN SERUM OR PLASMA 72 U/L 40 - 150 03/31 Specimen Type: SERUM No comment entered. Ordering Provider: JULES PEREZ Report Released Date/Time: Mar 30, 2023 12:31 PM Reporting Lab: [facility] [place] [facility] [address] [facility] [address] Performing Lab: [facility] [place] [facility] [address] [facility] [address] [facility]OSPITALRL WSTRN [facility] CENTERUSE [facility] LIVER FUNCTION ASPARTATE AMINOTRANS FERASE [ENZYMATIC ACTIVITY/V OLUME] IN SERUM OR PLASMA 11 U/L 5 - 34 03/31 Specimen Type: SERUM No comment entered. Ordering Provider: JULES PEREZ Report Released Date/Time: Mar 30, 2023 12:31 PM Reporting Lab: [facility] [place] [facility] [address] [facility] [address] Performing Lab: [facility] [place] [facility] [address] [facility] [address] [facility]OSPITALRL WSTRN [facility] HOSPITALCHUSE [facility] LIVER FUNCTION ALANINE AMINOTRANS FERASE [ENZYMATIC ACTIVITY/V OLUME] IN SERUM OR PLASMA 19 U/L 03/31 Specimen Type: SERUM No comment entered. Ordering Provider: JULES PEREZ Report Released Date/Time: Mar 30, 2023 12:31 PM Reporting Lab: [facility] [place] [facility] [address] [facility] [address] Performing Lab: [facility] [place] [facility] [address] [facility] [address] [facility]OSPITALRL WSTRN [facility] HOSPITALCHUSE [facility] LIVER FUNCTION BILIRUBIN. TOTAL [MASS/VOLU ME] IN SERUM OR PLASMA 0.4 mg/dL 0.2 - 1.2 03/31 Specimen Type: SERUM No comment entered. Ordering Provider: JULES PEREZ Report Released Date/Time: Mar 30, 2023 12:31 PM Reporting Lab: [facility]RL [facility] [place] [address] [address] Performing Lab: [facility] [place] [facility] [address] [facility] [address] [facility]ITALRL WSTRN [place] [facility] AMPHETAM SHERIE SCREEN PANEL [...] Mar 26, 2023 08:40 AM Reporting Lab: [facility]RL [facility] [place] [address] [address] Performing Lab: [facility]ITALRL [facility] [place] [address] [address] [facility] HOSPITALRVETERANS AFFAIRS MEDICAL CENTER-TUSCALOOSATRN [place] TS [facility] AMPHETAM SHERIE SCREEN PANEL [...] Mar 26, 2023 08:40 AM Reporting Lab: [facility]ITALRL [facility] [place] [address] [address] Performing Lab: [facility]ITALRL WSTRN [facility] CENTERUSETS [address] [address] [facility]OSPITALRL TRN [place] [facility] AMPHETAM SHERIE SCREEN PANEL [...] Mar 26, 2023 08:40 AM Reporting Lab: [facility] RattleUSEMEDIS[facility] [address] [facility] [address] Performing Lab: [address] [address] [facility] NerdiesUSE [facility] AMPHETAM SHERIE SCREEN PANEL SPECIFIC GRAVITY OF [...] Mar 26, 2023 08:40 AM Reporting Lab: [facility] MASSEcoSurgeUS[facility] [address] [facility] [address] Performing Lab: [facility]ITALN NerdiesUSEMEDISYS HE[facility] [address] [facility] [address] [facility] NerdiesUSE [facility] BENZODIA ZEPINES SCREEN PANEL BENZODIAZE PINES [PRESENCE] [...] Mar 26, 2023 08:40 AM Reporting Lab: [facility]RL [facility] [place] [facility] [address] [facility] [address] Performing Lab: [facility]ITALRL [facility] [place] [address] [address] [facility]PITALRVETERANS AFFAIRS MEDICAL CENTER-TUSCALOOSATRN [place] [facility] BENZODIA ZEPINES SCREEN PANEL PH OF URINE [...] Mar 26, 2023 08:40 AM Reporting Lab: [facility]ITALRL TRN [place] [address] [address] Performing Lab: [facility]RL [facility] [place] [address] [address] [facility]ITALN [facility]ENTERUSE TS [facility] BENZODIA ZEPINES SCREEN PANEL [...] Mar 26, 2023 08:40 AM Reporting Lab: [facility]RL [facility] [place] [address] [address] Performing Lab: [facility] [place] [facility] [address] [facility] [address] [facility] [place] [facility] BENZODIA ZEPINES SCREEN PANEL [...] Mar 26, 2023 08:40 AM Reporting Lab: [facility] [place] [facility] [address] [facility] [address] Performing Lab: [facility] [place] [facility] [address] [facility] [address] [facility] [place] [facility] Vital Signs Combined list [...] 08/10/2024 10:08:37 [facility] [place] [facility] TEMPERATURE 98.4 08/10/2024 10:08:37 [...] Date DC Date Status [facility] [id number] SUITABI DERICK MILLER T 08/30 Released w/o Limitations [facility] OUTPATIENT [id number] ad needs ref to pulm for asthma testing TAMI FRIAS 09/04 Released w/o Limitations [facility] OUTPATIENT [id number] pulmona ry consult per DERICK Cat T 09/05 Released w/o Limitations [facility] OUTPATIENT [id number] bp check TANVI VINSON 09/27 Released w/o Limitations [facility] ub[facility] Immed Care) [facility]([facility] Care) TELE CONSULT [id number] PT require s consult to pulmono logy for asthma evaluat ion DERICK CHAPMAN T 10/01 [facility]ellen [facility] Pul[facility]olo gy) OUTPATIENT [id number] wheezin g [as a symptom ] GREGORIO_NIDIA CASPER S 10/29 Released with Work/Duty Limitations [facility](B remerto n Pulmono logy) [facility]([facility]) OUTPATIENT [id number] 30YO/FU ON ASTHMA DERICK CHAPMAN T 11/04 Released w/o Limitations [facility](Z ZFamily Medicin e) [facility] [facility]) OUTPATIENT [id number] AD Rash on back x 1-2mo VALDO ALTMAN 02/19 Released w/o Limitations [facility](Z ZFamily Medicin e) [facility](B Chiroprac tic Cln) OUTPATIENT [id number] BACKACH E BHATTI, SPRING N 02/28 Released w/o Limitations [facility](B Chiropr actic Cln) [facility] [facility](B Chiroprac tic Cln) OUTPATIENT [id number] f/u upper back pain BHATTI, SPRING N 03/03 Released w/o Limitations [facility](B Chiropr actic Cln) [facility] [facility](B Chiroprac tic Cln) OUTPATIENT [id number] f/u upper back pain BHATTI, SPRING N 03/05 Released w/o Limitations [facility](B Chiropr actic Cln) [facility] [facility](B Chiroprac tic Cln) OUTPATIENT [id number] f.u per pt BHATTI, SPRING N 03/14 Released w/o Limitations [facility](B Chiropr actic Cln) [facility] [facility](B Chiroprac tic Cln) OUTPATIENT [id number] f.u back per pt BHATTI, SPRING N 03/17 Released w/o Limitations [facility](B Chiropr actic Cln) [facility](B Chiroprac tic Cln) OUTPATIENT [id number] LBP BHATTI, SPRING N 03/19 Released w/o Limitations [facility](B Chiropr actic Cln) [facility](Sub [facility]se Patient Ed) OUTPATIENT [id number] PPD intervi ew DAO MATTHEWS S 04/22 Released w/o Limitations [facility](S ubase Patient Ed) [facility](Sub ase Immunizat ions) OUTPATIENT [id number] typhoid DAO MATTHEWS 04/22 Released w/o Limitations [facility](S ubase Immuniz ations) [facility](Sub ase Immunizat ions) OUTPATIENT [id number] hep b DAO MATTHEWS 05/08 Released w/o Limitations [facility](S ubase Immuniz ations) [facility](Sub ase Immunizat ions) OUTPATIENT [id number] HBV#2 DAO MATTHEWS 12/03 Released w/o Limitations [facility](S ubase Immuniz ations) [facility](Sub ase Immunizat ions) OUTPATIENT [id number] TD BERYL AMADOR 12/04 Released w/o Limitations [facility](S ubase Immuniz ations) [facility] [facility]) OUTPATIENT [id number] AD Eye check KEN GARCIA 01/08 Released w/o Limitations [facility](S ubase Optomet ry Clinic) [facility]([facility]) OUTPATIENT [id number] Annual Follow- up for TB Screeni CHARISSA Arizmendi 02/23 Released w/o Limitations [facility](B remerto n Prev Med Clinic) [facility](Sub ase Occupatio [facility]) OUTPATIENT [id number] KEMI Taylor 02/23 Released w/o Limitations [facility](S ubase [facility] - [facility]) [facility](SD Nutrition ) OUTPATIENT [id number] SAW WRIGHT 03/19 Released w/o Limitations [facility](S D Nutriti on) [facility] [place] [facility] SBSQ HOSP IP/OBS MODERATE 35 [id number] Diagnos is: ICD-10- CM F12.20 Cannabi s depende nce, uncompl icated< br/> MIRJULES MILES M 03/04 [facility] [place] [facility] [facility] [place] [facility] THERAPEUTI C ACTIVITIES [id number] Diagnos is: ICD-10- CM F25.0 Schizoa ffectiv e disorde r, bipolar type
ANANDAVERITOBUFFY DA T 03/04 [facility] [place] [facility] [place] [facility] Inpatient Encounter [id number] 03/04 [facility] [place] [facility] [place] [facility] SBSQ HOSP IP/OBS MODERATE 35 [id number] Diagnos is: ICD-10- CM F25.0 Schizoa ffectiv e disorde r, bipolar type
MIRJULES MILES M 03/05 [facility] [place] [facility] [place] [facility] THERAPEUTI C ACTIVITIES [id number] Diagnos is: ICD-10- CM F25.0 Schizoa ffectiv e disorde r, bipolar type
ANANDABUFFY DA T 03/05 [facility] [place] [place] [facility] CASE MANAGEMENT [id number] Diagnos is: ICD-10- CM F25.0 Schizoa ffectiv e disorde r, bipolar type
SU PETTIT N N 03/05 [facility] SBSQ HOSP IP/OBS MODERATE 35 [id number] Diagnos is: ICD-10- CM F25.0 Schizoa ffectiv e disorde r, bipolar type
JULES PEREZ 03/06 [facility] CASE MANAGEMENT [id number] Diagnos is: ICD-10- CM F25.0 Schizoa ffectiv e disorde r, bipolar type
SU PETTIT N N 03/06 [facility] [place] ELECTROCAR DIOGRAM REPORT [id number] Diagnos is: ICD-10- CM Z13.6 Encount er for screeni ng for cardiov ascular disorde rs
RYAN HINOJOSA 03/06 [place] [facility] ELECTROCAR DIOGRAM TRACING 14883-3.63 [id number] MEDARDO PARRISH 03/06 [facility] THERAPEUTI C ACTIVITIES 93330-7.63 [id number] Diagnos is: ICD-10- CM F25.0 Schizoa ffectiv e disorde r, bipolar type
BUFFY MALAVE 03/06 [facility] INTRAORAL PERIAPICAL FIRST 46754-8.63 [id number] Diagnos is: ICD-10- CM K08.9 Disorde r of teeth and support ing structu res, unspeci fied
ARIANA SMITH 03/07 [facility] IP/OBS MODERATE 35 67329-3.63 [id number] Diagnos is: ICD-10- CM F12.20 Cannabi s depende nce, uncompl icated< br/> JULES PEREZ 03/07 [facility] CASE MANAGEMENT [id number] [id number] Diagnos is: ICD-10- CM F25.0 Schizoa ffectiv e disorde r, bipolar type
SU PETTIT N N 03/07 [facility] IP/OBS SF/LOW 25 45899-1.63 [id number] Diagnos is: ICD-10- CM F10.24 Alcohol depende nce with alcohol -induce d mood disorde r
Yanni LONG MD 03/08 [facility] IP/OBS SF/LOW 25 66258-2.63 [id number] Diagnos is: ICD-10- CM F10.24 Alcohol depende nce with alcohol -induce d mood disorde r
Yanni LONG MD 03/09 [facility] IP/OBS SF/LOW 25 21710-5.63 [id number] Diagnos is: ICD-10- CM F10.24 Alcohol depende nce with alcohol -induce d mood disorde r
Yanni LONG MD 03/10 [facility] CASE MANAGEMENT 49115-7.63 [id number] Diagnos is: ICD-10- CM F25.0 Schizoa ffectiv e disorde r, bipolar type
SU PETTIT N N 03/11 [facility] SBSQ HOSP IP/OBS MODERATE 35 75464-7.63 [id number] Diagnos is: ICD-10- CM F25.0 Schizoa ffectiv e disorde r, bipolar type
MIRJULES MILES M 03/11 [facility] SBSQ HOSP IP/OBS MODERATE 35 02098-6.63 [id number] Diagnos is: ICD-10- CM F25.0 Schizoa ffectiv e disorde r, bipolar type
MIROTJULES M 03/12 [facility] CASE MANAGEMENT 26129-9.63 [id number] Diagnos is: ICD-10- CM F25.0 Schizoa ffectiv e disorde r, bipolar type
SU PETTIT N N 03/12 [facility] SBSQ HOSP IP/OBS MODERATE 35 15925-2.63 [id number] Diagnos is: ICD-10- CM F25.0 Schizoa ffectiv e disorde r, bipolar type
MIRJULES MILES M 03/13 [facility] 1ST HOSP IP/OBS SF/LOW 40 02032-6.63 [id number] Diagnos is: ICD-10- CM K45.8 Oth abdomin al hernia without obstruc tion or gangren e
VALERIE WATT E 03/13 [facility] CASE MANAGEMENT 92004-0.63 [id number] Diagnos is: ICD-10- CM F25.0 Schizoa ffectiv e disorde r, bipolar type
SU PETTIT N N 03/13 [facility] SBSQ HOSP IP/OBS MODERATE 35 61300-4.63 [id number] Diagnos is: ICD-10- CM F12.20 Cannabi s depende nce, uncompl icated< br/> JULES PEREZ 03/14 [facility] CASE MANAGEMENT 61292-7.63 [id number] Diagnos is: ICD-10- CM F25.0 Schizoa ffectiv e disorde r, bipolar type
SU PETTIT N N 03/14 [facility] SBSQ HOSP IP/OBS SF/LOW 25 40906-3.63 [id number] Diagnos is: ICD-10- CM F25.0 Schizoa ffectiv e disorde r, bipolar type
Yanni LONG MD 03/15 [facility] SBSQ HOSP IP/OBS SF/LOW 25 54549-3.63 [id number] Diagnos is: ICD-10- CM F10.24 Alcohol depende nce with alcohol -induce d mood disorde r
Yanni LONG MD 03/16 [facility] IP/OBS MODERATE 35 50336-8.63 [id number] Diagnos is: ICD-10- CM F12.20 Cannabi s depende nce, uncompl icated< br/> MIROTJULES 03/17 [facility] CASE MANAGEMENT 36623-2.63 [id number] Diagnos is: ICD-10- CM F25.0 Schizoa ffectiv e disorde r, bipolar type
SU PETTIT N N 03/17 [facility] Inpatient Encounter [id number] [id number] 03/17 [facility] SBSQ HOSP IP/OBS MODERATE 35 44696-8.63 [id number] Diagnos is: ICD-10- CM F12.20 Cannabi s depende nce, uncompl icated< br/> MIROTJULES 03/18 [facility] CASE MANAGEMENT [id number] [id number] Diagnos is: ICD-10- CM F25.0 Schizoa ffectiv e disorde r, bipolar type
SU PETTIT N N 03/18 [facility] GROUP PSYCHOTHER APY 09341-9.63 [id number] Diagnos is: ICD-10- CM F25.0 Schizoa ffectiv e disorde r, bipolar type
ANDRIA DIALLO 03/18 [facility] SBSQ HOSP IP/OBS MODERATE 35 05196-1.63 [id number] Diagnos is: ICD-10- CM F25.0 Schizoa ffectiv e disorde r, bipolar type
ADELSO LOMBARDO 03/18 [facility] SBSQ HOSP IP/OBS MODERATE 35 37001-3.63 [id number] Diagnos is: ICD-10- CM F25.0 Schizoa ffectiv e disorde r, bipolar type
JULES PEREZ 03/19 [facility] ELECTROCAR DIOGRAM TRACING 59636-0.63 [id number] FUADDAVID SANTIAGO 03/19 [facility] CASE MANAGEMENT 62133-0.63 [id number] Diagnos is: ICD-10- CM F25.0 Schizoa ffectiv e disorde r, bipolar type
SU PETTIT 03/19 [facility] Inpatient Encounter 00520-8.63 [id number] Diagnos is: ICD-10- CM K40.91 Unilate ral inguina l hernia, w/o obst or gangren e, recurre nt
HARMAN LEAL S 03/19 [facility] SBSQ HOSP IP/OBS MODERATE 35 14517-0.63 [id number] Diagnos is: ICD-10- CM F10.24 Alcohol depende nce with alcohol -induce d mood disorde r
JULES PEREZ 03/20 [facility] THERAPEUTI C ACTIVITIES 21149-2.52 [id number] Diagnos is: ICD-10- CM F25.0 Schizoa ffectiv e disorde r, bipolar type
BUFFY MALAVE 03/20 [facility] CASE MANAGEMENT 30131-9.34 [id number] Diagnos is: ICD-10- CM F25.0 Schizoa ffectiv e disorde r, bipolar type
SU PETTIT N N 03/20 [facility] SBSQ HOSP IP/OBS MODERATE 35 74663-6.63 [id number] Diagnos is: ICD-10- CM F25.0 Schizoa ffectiv e disorde r, bipolar type
JULES PEREZ 03/21 [facility] CASE MANAGEMENT 27375-5.63 [id number] Diagnos is: ICD-10- CM F25.0 Schizoa ffectiv e disorde r, bipolar type
SU PETTIT N N 03/21 [facility] CASE MANAGEMENT 04803-3.10 [id number] Diagnos is: ICD-10- CM Z65.3 Problem s related to other legal circums tances< br/> JENNIFER,HEIDI NA E 03/21 [facility] SBSQ HOSP IP/OBS HIGH 50 65011-1.63 [id number] Diagnos is: ICD-10- CM F25.0 Schizoa ffectiv e disorde r, bipolar type
RA Brian KANG 03/22 [facility] SBSQ HOSP IP/OBS HIGH 50 68933-7.63 [id number] Diagnos is: ICD-10- CM F25.0 Schizoa ffectiv e disorde r, bipolar type
RA Brian KANG 03/23 [facility] S[facility] HOSP IP/OBS MODERATE 35 93135-9.63 [id number] Diagnos is: ICD-10- CM F25.0 Schizoa ffectiv e disorde r, bipolar type
MONOJDJULES Brian 03/24 [facility] CASE MANAGEMENT 00034-4.63 [id number] Diagnos is: ICD-10- CM F25.0 Schizoa ffectiv e disorde r, bipolar type
SU PETTIT N 03/24 [facility] SBSQ HOSP IP/OBS MODERATE 35 96645-2.63 [id number] ISADORA COREY 03/25 [facility] [place] [place] [address]-8.63 [id number] Diagnos is: ICD-10- CM F25.0 Schizoa ffectiv e disorde r, bipolar type
BUFFY MALAVE 03/25 [facility] In[facility] Encounter [id number] [id number] RA Brian KANG 03/25 [facility] SBS[facility] HOSP IP/OBS SF/LOW 25 65321-9.63 [id number] Diagnos is: ICD-10- CM F25.0 Schizoa ffectiv e disorde r, bipolar type
JULES PEREZ 03/26 [facility] CASE MANAGEMENT 83599-8.63 [id number] Diagnos is: ICD-10- CM F25.0 Schizoa ffectiv e disorde r, bipolar type
SU PETTIT Estephanie N 03/26 [facility] CASE MANAGEMENT 28580-6.63 [id number] Diagnos is: ICD-10- CM Z65.3 Problem s related to other legal circums tances< br/> HEIDI RODRIGUEZ NA E 03/26 [facility] ELECTROCAR DIOGRAM REPORT 20609-5.68 [id number] Diagnos is: ICD-10- CM Z13.6 Encount er for screeni ng for cardiov ascular disorde rs
ROBERT VALDES U 03/26 [place] [facility] ELECTROCAR DIOGRAM TRACING 32444-9.63 [id number] ALBA QUISPE 03/26 [facility] ELECTROCAR DIOGRAM TRACING 44788-5.63 [id number] JULES PEREZ 03/26 [facility] [place] SBSQ HOSP IP/OBS HIGH 50 45717-3.63 [id number] Diagnos is: ICD-10- CM F31.9 Bipolar disorde r, unspeci fied
RA Brian KANG 03/27 [facility] CASE MANAGEMENT [id number] [id number] Diagnos is: ICD-10- CM F25.0 Schizoa ffectiv e disorde r, bipolar type
SU PETTIT N N 03/27 [facility] SBSQ HOSP IP/OBS MODERATE 35 85542-6.63 [id number] Diagnos is: ICD-10- CM F25.0 Schizoa ffectiv e disorde r, bipolar type
JULES PEREZ 03/28 [facility] Inpatient Encounter [id number] [id number] HODANSU Hummel N 03/28 [facility] THERAPEUTI C ACTIVITIES 24556-4.63 [id number] Diagnos is: ICD-10- CM F25.0 Schizoa ffectiv e disorde r, bipolar type
BUFFY MALAVE T 03/28 [facility] SBSQ HOSP IP/OBS SF/LOW 25 18622-3.63 [id number] Diagnos is: ICD-10- CM F25.0 Schizoa ffectiv e disorde r, bipolar type
JULES PEREZ 03/29 [facility] SBSQ HOSP IP/OBS SF/LOW 25 88012-4.63 [id number] Diagnos is: ICD-10- CM F12.20 Cannabi s depende nce, uncompl icated< br/> JULES PEREZ 03/30 [facility] In[facility] En[facility] [id number] [id number] 03/31 [facility] SBSQ HOSP IP/OBS MODERATE 35 01167-2.63 [id number] Diagnos is: ICD-10- CM F12.20 Cannabi s depende nce, uncompl icated< br/> JULES PEREZ 03/31 [facility] CASE MANAGEMENT 13358-6.63 [id number] Diagnos is: ICD-10- CM F25.0 Schizoa ffectiv e disorde r, bipolar type
HODAN,SU N N 03/31 [facility] In[facility] En[facility] [id number] [id number] 03/31 [facility] SBSQ HOSP IP/OBS MODERATE 35 35283-5.63 [id number] Diagnos is: ICD-10- CM F25.0 Schizoa ffectiv e disorde r, bipolar type
JULES PEREZ 04/01 [facility] PSYTX W PT 60 MINUTES 89034-2.63 [id number] Diagnos is: ICD-10- CM F25.0 Schizoa ffectiv e disorde r, bipolar type
HODANSU N N 04/01 [facility] [place] [place] [address]-1.63 [id number] Diagnos is: ICD-10- CM F25.0 Schizoa ffectiv e disorde r, bipolar type
ANANDABUFFY TD Hernandez 04/01 [facility] En[facility] [id number] [id number] 04/02 [facility] HOSP IP/OBS DSCHRG MGMT >30 11538-9.63 [id number] Diagnos is: ICD-10- CM F25.0 Schizoa ffectiv e disorde r, bipolar type
JULES PEREZ 04/02 [facility] CASE MANAGEMENT [id number] [id number] Diagnos is: ICD-10- CM F25.0 Schizoa ffectiv e disorde r, bipolar type
SU PETTIT 04/02 [facility] In[facility] Encounter [id number] [id number] 04/02 [facility] Outpatient [facility]counter [id number] 04/03 [facility] Out[facility] Encounter [id number] [id number] 04/04 [facility] Outpatient Encounter [id number] [id number] JD FRIAS 04/04 [facility] Outpatient Encounter [id number] SHERLY COLLINS 04/10 [facility] Out[facility] Encounter [id number] [id number] 04/14 [facility] Out[facility] Encounter [id number] [id number] 04/14 [facility] Out[facility] Encounter [id number] [id number] 04/15 [facility] Encounter [id number] [id number] 04/16 [facility] Encounter [id number] [id number] 04/17 [facility] Encounter [id number] [id number] 04/18 [facility] CASE MANAGEMENT [id number] [id number] Diagnos is: ICD-10- CM Z59.01 Jail ed homeles snbrennan<b r/> FOX JOYCE 04/21 [facility] Out[facility] Encounter [id number] [id number] 04/24 [facility] Encounter [id number] [id number] 04/29 [facility] Out[facility] Encounter [id number] [id number] 04/30 [facility] Encounter [id number] [id number] 05/01 [facility] Encounter [id number] [id number] 05/05 [facility] HC PRO PHONE CALL 5-10 MIN [id number] [id number] Diagnos is: ICD-10- CM F10.24 Alcohol depende nce with alcohol -induce d mood disorde r
Meredith TOLBERT 05/05 [facility] PSYTX W PT 30 MINUTES [id number] [id number] Diagnos is: ICD-10- CM F10.24 Alcohol depende nce with alcohol -induce d mood disorde r
KIANA GARCIA ON A 05/06 [facility] PSYTX W PT 45 MINUTES [id number] [id number] Diagnos is: ICD-10- CM F10.24 Alcohol depende nce with alcohol -induce d mood disorde r
JUSTIN ADAME 05/08 [facility] Out[facility] En[facility] [id number] [id number] JUSTIN ADAME 05/08 [facility] CASE MANAGEMENT [id number] [id number] Diagnos is: ICD-10- CM Z65.3 Problem s related to other legal circums tances< br/> HEIDI RODRIGUEZ NA Azael 05/09 [facility] HC PRO PHONE CALL 5-10 MIN [id number] [id number] Diagnos is: ICD-10- CM Z65.3 Problem s related to other legal circums tances< br/> JENNIFER,HEIDI NA E 05/16 [facility] OFFICE O/P EST SF 10-19 MIN [id number] [id number] Diagnos is: ICD-10- CM F10.24 Alcohol depende nce with alcohol -induce d mood disorde r
Yanni LONG MD 05/16 [facility] Outpatient Encounter [id number] 05/21 [facility] CASE MANAGEMENT [id number] [id number] Diagnos is: ICD-10- CM Z59.01 Jail ed homeles sness<b r/> FOX JOYCE 05/29 [facility] Outpatient Encounter [id number] HELEN LEONARD 06/11 [facility] Outpatient Encounter [id number] 06/13 [facility] CASE MANAGEMENT [id number] [id number] Diagnos is: ICD-10- CM Z65.3 Problem s related to other legal circums tances< br/> JENNIFER,HEIDI NA E 06/18 [facility] Outpatient Encounter [id number] 06/19 [facility] OFFICE O/P EST MOD 30-39 MIN [id number] [id number] Diagnos is: ICD-10- CM J45.998 Other asthma< br/> IRAIDA LOWRY 06/19 [facility] Out[facility] Encounter [id number] 06/20 [facility] Out[facility] Encounter [id number] 06/22 [facility] Out[facility] Encounter [id number] 07/07 [facility] Out[facility] Encounter [id number] 07/08 [facility] CASE MANAGEMENT [id number] Diagnos is: ICD-10- CM F25.0 Schizoa ffectiv e disorde r, bipolar type
FOX JOYCE 07/09 [facility] OFFICE O/P EST MOD 30-39 MIN [id number] Diagnos is: ICD-10- CM M25.562 Pain in left knee
OPAL ANAYA 07/10 [facility] EYE EXAM NEW PATIENT [id number] Diagnos is: ICD-10- CM H25.013 Cortica l age-rel ated catarac t, bilater al
DARLENE CRUZ 07/10 [facility] Outpatient Encounter [id number] 07/10 [facility] FIT SPECTACLES MONOFOCAL [id number] Diagnos is: ICD-10- CM Z46.0 Encount er for fit/adj st of spectac les and contact lenses< br/> CARYL MARCUS 07/11 [facility] OFFICE O/P EST LOW 20-29 MIN [id number] Diagnos is: ICD-10- CM F25.0 Schizoa ffectiv e disorde r, bipolar type
Yanni LONG MD 07/17 [facility] Outpatient Encounter [id number] 07/19 [facility] Out[facility]counter [id number] 07/21 [facility] Outpatient Encounter [id number] 08/12 [facility] CASE MANAGEMENT [id number] Diagnos is: ICD-10- CM Z65.3 Problem s related to other legal circums tances< br/> JENNIFER,HEIDI NA E 09/10 [facility] PSYTX W PT 30 MINUTES [id number] Diagnos is: ICD-10- CM F25.0 Schizoa ffectiv e disorde r, bipolar type
KIANA GARCIA ON A 09/11 [facility] Out[facility] Encounter [id number] 09/26 [facility] PSYTX W PT 30 MINUTES [id number] Diagnos is: ICD-10- CM F25.0 Schizoa ffectiv e disorde r, bipolar type
JOSEMARSHAMISSAEL ON A 11/19 [facility] OFFICE O/P EST LOW 20 MIN [id number] Diagnos is: ICD-10- CM F25.0 Schizoa ffectiv e disorde r, bipolar type
Yanni LONG MD 11/19 [facility] Out[facility]counter [id number] 11/19 [facility] Outpatient Encounter [id number] 12/02 [facility] Outpatient Encounter [id number] 01/01 [facility] Out[facility] Encounter [id number] 01/01 [facility] OFF/OP EST MAY X REQ PHY/QHP [id number] Diagnos is: ICD-10- CM F10.24 Alcohol depende nce with alcohol -induce d mood disorde r
Meredith SCOTT ATRICIA A 04/08 [facility] OFFICE O/P EST MOD 30 MIN [id number] Diagnos is: ICD-10- CM I10 Essenti al (primar y) hyperte nsion<b r/> OPAL ANAYA 06/09 [facility] Outpatient Encounter [id number] 06/10 [facility] OFFICE O/P EST LOW 20 MIN [id number] Diagnos is: ICD-10- CM F25.0 Schizoa ffectiv e disorde r, bipolar type
Yanni LONG MD 06/17 [facility] Outpatient Encounter [id number] Brian YANCEY 07/01 [facility] Outpatient Encounter [id number] 07/01 [facility] OFFICE O/P NEW MOD 45 MIN [id number] Diagnos is: ICD-10- CM M54.59 Other low back pain
MITRA BRAR RA 07/06 [facility] ORTHC/PROS TC MGMT SBSQ ENC [id number] Diagnos is: ICD-10- CM M25.562 Pain in left knee
Brian SHAFFER 07/06 [facility] Out[facility] Encounter [id number] 1.07/06 [facility] PRO PHONE CALL 5-10 MIN [id number] 1. Diagnos is: ICD-10- CM Z71.89 Other specifi ed counseling specialist ing<br/ > YAJAIRA VALENCIA 07/06 [facility] Outpatient Encounter [id number] 1.07/13 [facility] Out[facility] Encounter [id number] 1.07/14 [facility] OFFICE O/P EST MOD 30 MIN [id number] Diagnos is: ICD-10- CM I10 Essenti al (primar y) hyperte nsion<b r/> OPAL ANAYA 07/14 [facility] Outpatient Encounter [id number] 1.07/22 [facility] Out[facility] Encounter [id number] 1.07/26 [facility] Out[facility] Encounter [id number] 1.07/27 [facility] OFFICE O/P EST LOW 20 MIN [id number] Diagnos is: ICD-10- CM F25.0 Schizoa ffectiv e disorde r, bipolar type
Yanni LONG MD 07/28 [facility] Out[facility] Encounter [id number] 07/28 [facility] Out[facility] Encounter [id number] 08/09 [facility] OFFICE O/P NEW SF 15 MIN [id number] Diagnos is: ICD-10- CM L60.3 Nail dystrop hy
FRANCISCO NESBITT RLES D 08/10 [facility] Outpatient Encounter [id number] 08/23 [facility] Outpatient Encounter [id number] 08/26 [facility] Outpatient Encounter [id number] 08/27 [facility] Procedures Combined list of: 1) Procedures from Department of Veterans Affairs facilities going back up to thelast 18 months, not all ID non-surgical procedures are included; 2) All procedures from the Department of Defense facilities. Procedure Procedure Type Code Date Perfomer Comments [facility] BEHAVIORAL HEALTH; SHORT-TERM RESIDENTIAL (NON-HOSPITAL RESIDENTIAL TREATMENT PROGRAM), WITHOUT ROOM AND BOARD, CARTON FORMING MACHINE HELPER 007 [facility] BEHAVIORAL HEALTH; SHORT-TERM RESIDENTIAL (NON-HOSPITAL RESIDENTIAL TREATMENT PROGRAM), WITHOUT ROOM AND BOARD, CARTON FORMING MACHINE HELPER 007 [facility] INDIVIDUAL PSYCHOTHERAPY, INSIGHT ORIENTED, BEHAVIOR MODIFYING AND/OR SUPPORTIVE, IN AN OFFICE OR OUTPATIENT FACILITY, APPROXIMATELY 75 TO 80 MINUTES [id number] WITH THE PATIENT 007 [facility] BEHAVIORAL HEALTH; SHORT-TERM RESIDENTIAL (NON-HOSPITAL RESIDENTIAL TREATMENT PROGRAM), WITHOUT ROOM AND BOARD, CARTON FORMING MACHINE HELPER 007 [facility]; SHORT-TERM RESIDENTIAL (NON-HOSPITAL RESIDENTIAL TREATMENT PROGRAM), WITHOUT ROOM AND BOARD, CARTON FORMING MACHINE HELPER 007 [facility]; SHORT-TERM RESIDENTIAL (NON-HOSPITAL RESIDENTIAL TREATMENT PROGRAM), WITHOUT ROOM AND BOARD, CARTON FORMING MACHINE HELPER 007 [facility] BEHAVIORAL HEALTH; SHORT-TERM RESIDENTIAL (NON-HOSPITAL RESIDENTIAL TREATMENT PROGRAM), WITHOUT ROOM AND BOARD, CARTON FORMING MACHINE HELPER 007 [facility]; SHORT-TERM RESIDENTIAL (NON-HOSPITAL RESIDENTIAL TREATMENT PROGRAM), WITHOUT ROOM AND BOARD, CARTON FORMING MACHINE HELPER 007 [facility]; SHORT-TERM RESIDENTIAL (NON-HOSPITAL RESIDENTIAL TREATMENT PROGRAM), WITHOUT ROOM AND BOARD, CARTON FORMING MACHINE HELPER 007 [facility]; SHORT-TERM RESIDENTIAL (NON-HOSPITAL RESIDENTIAL TREATMENT PROGRAM), WITHOUT ROOM AND BOARD, CARTON FORMING MACHINE HELPER 007 [facility]; SHORT-TERM RESIDENTIAL (NON-HOSPITAL RESIDENTIAL TREATMENT PROGRAM), WITHOUT ROOM AND BOARD, CARTON FORMING MACHINE HELPER 007 [facility]; SHORT-TERM RESIDENTIAL (NON-HOSPITAL RESIDENTIAL TREATMENT PROGRAM), WITHOUT ROOM AND BOARD, CARTON FORMING MACHINE HELPER 007 [facility]; SHORT-TERM RESIDENTIAL (NON-HOSPITAL RESIDENTIAL TREATMENT PROGRAM), WITHOUT ROOM AND BOARD, CARTON FORMING MACHINE HELPER 007 [facility]; SHORT-TERM RESIDENTIAL (NON-HOSPITAL RESIDENTIAL TREATMENT PROGRAM), WITHOUT ROOM AND BOARD, CARTON FORMING MACHINE HELPER 007 [facility]; SHORT-TERM RESIDENTIAL (NON-HOSPITAL RESIDENTIAL TREATMENT PROGRAM), WITHOUT ROOM AND BOARD, CARTON FORMING MACHINE HELPER 007 [facility]; SHORT-TERM RESIDENTIAL (NON-HOSPITAL RESIDENTIAL TREATMENT PROGRAM), WITHOUT ROOM AND BOARD, CARTON FORMING MACHINE HELPER 007 [facility]; SHORT-TERM RESIDENTIAL (NON-HOSPITAL RESIDENTIAL TREATMENT PROGRAM), WITHOUT ROOM AND BOARD, CARTON FORMING MACHINE HELPER 007 [facility]; SHORT-TERM RESIDENTIAL (NON-HOSPITAL RESIDENTIAL TREATMENT PROGRAM), WITHOUT ROOM AND BOARD, CARTON FORMING MACHINE HELPER 007 [facility]; SHORT-TERM RESIDENTIAL (NON-HOSPITAL RESIDENTIAL TREATMENT PROGRAM), WITHOUT ROOM AND BOARD, CARTON FORMING MACHINE HELPER 007 [facility]; SHORT-TERM RESIDENTIAL (NON-HOSPITAL RESIDENTIAL TREATMENT PROGRAM), WITHOUT ROOM AND BOARD, CARTON FORMING MACHINE HELPER 007 [facility]; SHORT-TERM RESIDENTIAL (NON-HOSPITAL RESIDENTIAL TREATMENT PROGRAM), WITHOUT ROOM AND BOARD, CARTON FORMING MACHINE HELPER 007 [facility]; SHORT-TERM RESIDENTIAL (NON-HOSPITAL RESIDENTIAL TREATMENT PROGRAM), WITHOUT ROOM AND BOARD, CARTON FORMING MACHINE HELPER [facility] MEDICAL NUTRITION THERAPY; GROUP (2 OR MORE INDIVIDUAL(S)), EACH 30 MINUTES [facility] BEHAVIORAL HEALTH; SHORT-TERM RESIDENTIAL (NON-HOSPITAL RESIDENTIAL TREATMENT PROGRAM), WITHOUT ROOM AND BOARD, CARTON FORMING MACHINE HELPER [facility] BEHAVIORAL HEALTH; SHORT-TERM RESIDENTIAL (NON-HOSPITAL RESIDENTIAL TREATMENT PROGRAM), WITHOUT ROOM AND BOARD, CARTON FORMING MACHINE HELPER [facility] PSYCHIATRIC DIAGNOSTIC INTERVIEW EXAMINATION [facility] BEHAVIORAL HEALTH; SHORT-TERM RESIDENTIAL (NON-HOSPITAL RESIDENTIAL TREATMENT PROGRAM), WITHOUT ROOM AND BOARD, CARTON FORMING MACHINE HELPER [facility] NONINVASIVE EAR OR PULSE OXIMETRY FOR OXYGEN SATURATION; SINGLE DETERMINATION [facility] EDUCATIONAL SUPPLIES, SUCH BOOKS, TAPES, AND PAMPHLETS, FOR THE PATIENT'S EDUCATION AT COST TO PHYSICIAN OR OTHER QUALIFIED HEALTH METABOLIC SPECIALIST [facility] BEHAVIORAL HEALTH COUNSELING AND THERAPY, PER 15 MINUTES [facility] OPHTHALMOLOGICAL SERVICES: MEDICAL EXAMINATION AND EVALUATION, WITH INITIATION OR CONTINUATION OF DIAGNOSTIC AND TREATMENT PROGRAM; COMPREHENSIVE, ESTABLISHED PATIENT, 1 OR MORE VISITS [facility] TETANUS AND DIPHTHERIA TOXOIDS (TD) ADSORBED WHEN ADMINISTERED TO INDIVIDUALS 7 YEARS OR OLDER, FOR INTRAMUSCULAR USE [facility] HEPATITIS B VACCINE (HEPB), ADULT DOSAGE, 3 DOSE SCHEDULE, FOR INTRAMUSCULAR USE [facility] HEPATITIS B VACCINE (HEPB), ADULT DOSAGE, 3 DOSE SCHEDULE, FOR INTRAMUSCULAR USE [facility] TYPHOID VACCINE, CAPSULAR POLYSACCHARIDE (VICPS), FOR INTRAMUSCULAR USE [facility] APPLICATION OF A MODALITY TO 1 OR MORE AREAS; HOT OR COLD PACKS [facility] MANUAL THERAPY TECHNIQUES (EG, MOBILIZATION/ MANIPULATION, MANUAL LYMPHATIC DRAINAGE, MANUAL TRACTION), 1 OR MORE REGIONS, EACH 15 MINUTES [facility] APPLICATION OF A MODALITY TO 1 OR MORE AREAS; HOT OR COLD PACKS [facility] THERAPEUTIC PROCEDURE, 1 OR MORE AREAS, EACH 15 MINUTES; THERAPEUTIC EXERCISES TO DEVELOP STRENGTH AND ENDURANCE, RANGE OF MOTION AND FLEXIBILITY [facility] APPLICATION OF A MODALITY TO 1 OR MORE AREAS; ELECTRICAL STIMULATION (UNATTENDED) [facility] APPLICATION OF A MODALITY TO 1 OR MORE AREAS; HOT OR COLD PACKS [facility] OPHTHALMOLOGICAL SERVICES: MEDICAL EXAMINATION AND EVALUATION, WITH INITIATION OR CONTINUATION OF DIAGNOSTIC AND TREATMENT PROGRAM; INTERMEDIATE, ESTABLISHED PATIENT [facility] [employer]ATION EVALUATION, [place] [address], WITH ADMINISTERED AGENTS (EG, ANTIGEN[S], COLD AIR, METHACHOLINE) [facility] ELECTROCARDIOGRAM, ROUTINE ECG WITH AT LEAST 12 LEADS; WITH INTERPRETATION AND REPORT [facility] ELECTROCARDIOGRAM, ROUTINE ECG WITH AT LEAST 12 LEADS; WITH INTERPRETATION AND REPORT [facility] OPHTHALMOLOGICAL SERVICES: MEDICAL EXAMINATION AND EVALUATION, WITH INITIATION OR CONTINUATION OF DIAGNOSTIC AND TREATMENT PROGRAM; INTERMEDIATE, ESTABLISHED PATIENT [facility] SPECIAL REPORTS SUCH INSURANCE FORMS, MORE THAN THE INFORMATION CONVEYED IN THE USUAL MEDICAL COMMUNICATIONS OR STANDARD REPORTING FORM [facility] FITTING OF SPECTACLES, EXCEPT FOR APHAKIA; BIFOCAL [facility] ALCOHOL AND/OR DRUG SERVICES; INTENSIVE OUTPATIENT (TX PRGM OPERATES >= 3 HRS/DAY & >= 3 DAYS/WK & IS BASED ON INDIVID TX PLAN),INCL ASSESS,ENGINEER DESIGN AND CONSTRUCTION;CRISI S INTERVENTN,& ACT THERAPIES/EDUC [facility] ALCOHOL AND/OR DRUG SERVICES; INTENSIVE OUTPATIENT (TX PRGM OPERATES >= 3 HRS/DAY & >= 3 DAYS/WK & IS BASED ON INDIVID TX PLAN),INCL ASSESS,ENGINEER DESIGN AND CONSTRUCTION;CRISI S INTERVENTN,& ACT THERAPIES/EDUC [facility] ALCOHOL AND/OR DRUG SERVICES; CASE MANAGEMENT [facility] ALCOHOL AND/OR DRUG SERVICES; INTENSIVE OUTPATIENT (TX PRGM OPERATES >= 3 HRS/DAY & >= 3 DAYS/WK & IS BASED ON INDIVID TX PLAN),INCL ASSESS,ENGINEER DESIGN AND CONSTRUCTION;CRISI S INTERVENTN,& ACT THERAPIES/EDUC [facility] AL[facility]HOL AND/OR DRUG SERVICES; INTENSIVE OUTPATIENT (TX PRGM OPERATES >= 3 HRS/DAY & >= 3 DAYS/WK & IS BASED ON INDIVID TX PLAN),INCL ASSESS,ENGINEER DESIGN AND CONSTRUCTION;CRISI S INTERVENTN,& ACT THERAPIES/EDUC [facility] AL[facility]HOL AND/OR DRUG SERVICES; INTENSIVE OUTPATIENT (TX PRGM OPERATES >= 3 HRS/DAY & >= 3 DAYS/WK & IS BASED ON INDIVID TX PLAN),INCL ASSESS,ENGINEER DESIGN AND CONSTRUCTION;CRISI S INTERVENTN,& ACT THERAPIES/EDUC [facility] AL[facility]HOL AND/OR DRUG SERVICES; INTENSIVE OUTPATIENT (TX PRGM OPERATES >= 3 HRS/DAY & >= 3 DAYS/WK & IS BASED ON INDIVID TX PLAN),INCL ASSESS,ENGINEER DESIGN AND CONSTRUCTION;CRISI S INTERVENTN,& ACT THERAPIES/EDUC 002 [facility] ALCOHOL AND/OR DRUG SERVICES; CASE MANAGEMENT 002 [facility] ALCOHOL AND/OR DRUG SERVICES; INTENSIVE OUTPATIENT (TX PRGM OPERATES >= 3 HRS/DAY & >= 3 DAYS/WK & IS BASED ON INDIVID TX PLAN),INCL ASSESS,ENGINEER DESIGN AND CONSTRUCTION;CRISI S INTERVENTN,& ACT THERAPIES/EDUC 002 [facility] ALCOHOL AND/OR DRUG SERVICES; INTENSIVE OUTPATIENT (TX PRGM OPERATES >= 3 HRS/DAY & >= 3 DAYS/WK & IS BASED ON INDIVID TX PLAN),INCL ASSESS,ENGINEER DESIGN AND CONSTRUCTION;CRISI S INTERVENTN,& ACT THERAPIES/EDUC 002 [facility] ALCOHOL AND/OR DRUG SERVICES; INTENSIVE OUTPATIENT (TX PRGM OPERATES >= 3 HRS/DAY & >= 3 DAYS/WK & IS BASED ON INDIVID TX PLAN),INCL ASSESS,ENGINEER DESIGN AND CONSTRUCTION;CRISI S INTERVENTN,& ACT THERAPIES/EDUC 002 [facility] ALCOHOL AND/OR DRUG SERVICES; CASE MANAGEMENT 002 [facility] ALCOHOL AND/OR DRUG SERVICES; INTENSIVE OUTPATIENT (TX PRGM OPERATES >= 3 HRS/DAY & >= 3 DAYS/WK & IS BASED ON INDIVID TX PLAN),INCL ASSESS,ENGINEER DESIGN AND CONSTRUCTION;CRISI S INTERVENTN,& ACT THERAPIES/EDUC 002 [facility] ALCOHOL AND/OR DRUG SERVICES; INTENSIVE OUTPATIENT (TX PRGM OPERATES >= 3 HRS/DAY & >= 3 DAYS/WK & IS BASED ON INDIVID TX PLAN),INCL ASSESS,ENGINEER DESIGN AND CONSTRUCTION;CRISI S INTERVENTN,& ACT THERAPIES/EDUC 002 [facility] ALCOHOL AND/OR DRUG SERVICES; INTENSIVE OUTPATIENT (TX PRGM OPERATES >= 3 HRS/DAY & >= 3 DAYS/WK & IS BASED ON INDIVID TX PLAN),INCL ASSESS,ENGINEER DESIGN AND CONSTRUCTION;CRISI S INTERVENTN,& ACT THERAPIES/EDUC 002 [facility] ALCOHOL AND/OR DRUG SERVICES; INTENSIVE OUTPATIENT (TX PRGM OPERATES >= 3 HRS/DAY & >= 3 DAYS/WK & IS BASED ON INDIVID TX PLAN),INCL ASSESS,ENGINEER DESIGN AND CONSTRUCTION;CRISI S INTERVENTN,& ACT THERAPIES/EDUC 002 [facility] ALCOHOL AND/OR DRUG SERVICES; CASE MANAGEMENT [facility] PSYCHIATRIC EVALUATION OF HOSPITAL RECORDS, OTHER PSYCHIATRIC REPORTS, PSYCHOMETRIC AND/OR PROJECTIVE TESTS, AND OTHER ACCUMULATED DATA FOR MEDICALDIAGNOSTIC PURPOSES [facility] ALCOHOL AND/OR DRUG SERVICES; INTENSIVE OUTPATIENT (TX PRGM OPERATES >= 3 HRS/DAY & >= 3 DAYS/WK & IS BASED ON INDIVID TX PLAN),INCL ASSESS,ENGINEER DESIGN AND CONSTRUCTION;SHERIDAN Ramos INTERVENTN,& ACT THERAPIES/EDUC [facility] PSYCHIATRIC DIAGNOSTIC INTERVIEW EXAMINATION [facility] BEHAVIORAL HEALTH SCREENING TO DETERMINE ELIGIBILITY FOR ADMISSION TO TREATMENT PROGRAM [facility] OPHTHALMOLOGICAL SERVICES: MEDICAL EXAMINATION AND EVALUATION WITH INITIATION OF DIAGNOSTIC AND TREATMENT PROGRAM; INTERMEDIATE, NEW PATIENT 002 [facility] Behavioral health; short-term residential (non-hospital residential treatment program), without room and board, photographic laboratory supervisor 007 GOYO OZUNA [facility] Alcohol and/or drug services; group counseling by a clinician 007 GOYO OZUNA Psychotherapy Individual Approximately 75-80 Minutes Psychotherapy Individual Approximately 75-80 Minutes [id number] 007 GOYO OZUNA [facility] Behavioral health; short-term residential (non-hospital residential treatment program), without room and board, photographic laboratory supervisor 007 GOYO OZUNA [facility] Alcohol and/or drug services; group counseling by a clinician GOYO FRIAS Psychotherapy Individual Approximately 45 Minutes Psychotherapy Individual Approximately 45 Minutes [id number] 007 GOYO OZUNA [facility] Medical Nutrition Therapy Group (2 or More Individuals) Each 30 Minutes Medical Nutrition Therapy Group (2 or More Individuals) Each 30 Minutes [id number] 007 SAW SHEARER [facility] Behavioral health; short-term residential (non-hospital residential treatment program), without room and board, photographic laboratory supervisor 007 GOYO OZUNA [facility] Alcohol and/or drug services; group counseling by a clinician GOYO FRIAS Psychiatric Diagnostic Evaluation Comprehensive Examination Psychiatric Diagnostic Evaluation Comprehensive Examination 40409 007 GOYO OZUNA Psychiatric Diagnostic Evaluation Comprehensive Examination Psychiatric Diagnostic Evaluation Comprehensive Examination 77047 007 BRETT PRATER [facility] Venipuncture Venipuncture 30395 OMEGA NIEVES Breathalyzer For Blood Alcohol Content Breathalyzer For Blood Alcohol Content 27026 007 OMEGA NIEVES Physician Supervised Services Provision Of Educational Supplies Physician Supervised Services Provision Of Educational Supplies 05993 CHARISSA FLETCHER Behavioral health counseling and therapy, [...] Comprehensive Examination Psychiatric Diagnostic Evaluation Comprehensive Examination 47831 DAI MCDOWELL Spectacles Services Fitting Monofocal Except For Aphakia Spectacles Services Fitting Monofocal Except For Aphakia 08659 KEN GARCIA Determination Of Refractive State Determination Of Refractive State 61856 KEN GARCIA Ophthalmological Prior Patient Start Comprehensive Care Ophthalmological Prior Patient Start Comprehensive Care 27553 KEN GARCIA Td Vaccine Seven Years Of Age And Above Td Vaccine Seven Years Of Age And Above 40384 DIANA RACHEL Immunization Administration By Injection, One Vaccine Immunization Administration By Injection, One Vaccine 56896 DIANA RACHEL Hepatitis B Vaccine (Active) Adult Dosage DIANA RACHEL Immunization Administration By Injection, One Vaccine Immunization Administration By Injection, One Vaccine 57222 DIANA RACHEL Immunization Administration By Injection, One Vaccine Immunization Administration By Injection, One Vaccine 55162 DIANA RACHEL Hepatitis B Vaccine (Active) Adult Dosage RACHEL, DIANA S DoD Immunization Administration By Injection, One Vaccine Immunization Administration By Injection, One Vaccine 49050 006 MILAGRO MARTELL DoD Typhoid Vaccine Vi Capsular Polysaccharide, For Intramus Use Typhoid Vaccine Vi Capsular Polysaccharide, For Intramus Use 53811 006 MILAGRO MARTELL [facility] Chiropractic Manip Treatmt (CMT) Spinal One To Two Regions Chiropractic Manip Treatmt (CMT) Spinal One To Two Regions 18302 006 BHATTI, SPR[place] N DoD Modalities Heat Hot Packs Modalities Heat Hot Packs 44178 006 BHATTI, [place] N cx, tx 20 mins DoD Mobilization Soft Ti ue Mobilization Soft Tissue 03357 006 BHATTI, [place] N pivot tx subocc. 8m DoD A isted Exercises For ROM Assisted Exercises For ROM 80657 006 BHATTI, SPR[place] N 02/28/2006 DoD Modalities Electrical Stimulation Unattended Modalities Electrical Stimulation Unattended 17531 006 BHATTI, [place] N IFC, 50-150, 100% 20 mins, left mid back, max 18 DoD Modalities Traction Modalities Traction 08280 0 006 BHATTI, SPR[place] N intersegmental: tx 10, lx 7 10 mins DoD Chiropractic Manip Treatmt (CMT) Spinal One To Two Regions Chiropractic Manip Treatmt (CMT) Spinal One To Two Regions 53697 006 BHATTI, [place] N DoD Modalities Traction Modalities Traction 03971 0 006 BHATTI, [place] N Intersegmental - tx 10, lx 7, 10 min. DoD Modalities Electrical Stimulation Unattended Modalities Electrical Stimulation Unattended 16849 006 BHATTI, [place] N IFC, 100%, 80-150, 20 min, left tx paraspinal, max 20 DoD Modalities Heat Hot Packs Modalities Heat Hot Packs 96102 006 BHATTI, [place] N Upper back 20 mins DoD A isted Exercises For ROM Assisted [place]ises [place] ROM 89214 006 BHATTI, SPR[place] N 02/28/06 DoD Mobilization Soft Ti ue Mobilization Soft Tissue 65974 006 BHATTI, [place] N pivot tx subocc 8m DoD Chiropractic Manip Treatmt (CMT) Spinal One To Two Regions Chiropractic Manip Treatmt (CMT) Spinal One To Two Regions 00316 006 BHATTI, [place] N DoD A isted Exercises For ROM Assisted [place]ises [place] ROM 46988 006 BHATTI, SPR[place] N 02/28/06 10m, reviewed with patient. DoD Modalities Traction Modalities Traction 01688 0 006 BHATTI, [place] N tx 10, lx 7, 10 mins DoD Modalities Heat Hot Packs Modalities Heat Hot Packs 57714 006 BHATTI, [place] N tx 20 mins DoD Mobilization Soft Ti ue Mobilization Soft Tissue 63002 006 BHATTI, [place] N pivot tx subocc 8m DoD Modalities Electrical Stimulation Unattended Modalities Electrical Stimulation Unattended 53950 006 BHATTI, [place] N IFC, 100%, 80-150, 20 mins, left midback, max 18 DoD Chiropractic Manip Treatmt (CMT) Spinal One To Two Regions Chiropractic Manip Treatmt (CMT) Spinal One To Two Regions 55375 006 BHATTI, [place] N DoD Mobilization Soft Ti ue Mobilization Soft Tissue 69769 006 BHATTI, [place] N pivot tx subocc. 8m DoD Modalities Electrical Stimulation Unattended Modalities Electrical Stimulation Unattended 20533 006 BHATTI, [place] N IFC 100% 80-150. 20 mins, left interscapular region, max 21 DoD Modalities Traction Modalities Traction 78021 0 006 BHATTI, [place] N Intersegmental - tx 9, lx 7, 10 min. DoD Modalities Heat Hot Packs Modalities Heat Hot Packs 45428 006 BHATTI, SPR[place] N 20 mins tx DoD A isted Exercises For ROM Assisted Exercises For ROM 67385 006 BHATTI, SPRING N 02/28/06 DoD Chiropractic Manip Treatmt (CMT) Spinal One To Two Regions Chiropractic Manip Treatmt (CMT) Spinal One To Two Regions 84688 006 BHATTI, [place] N DoD A isted Exercises For ROM Assisted [place] ROM 88483 006 BHATTI, SPR[place] N 02/28/2006 DoD Mobilization Soft Ti ue Mobilization Soft Tissue 25936 006 BHATTI, [place] N pivot tx subocc 10m DoD Modalities Heat Hot Packs Modalities Heat Hot Packs 00907 006 BHATTI, SPR[place] N 20 mins neck/upper back DoD Modalities Traction Modalities Traction 36169 0 006 BHATTI, SPR[place] N Intersegmental - tx 9 , lx 7 , 10 min. DoD Modalities Electrical Stimulation Unattended Modalities Electrical Stimulation Unattended 83222 006 BHATTI, [place] N IFC- 100% 80-150, 20 mins, left interscapular region, max 26 DoD Chiropractic Manip Treatmt (CMT) Spinal One To Two Regions Chiropractic Manip Treatmt (CMT) Spinal One To Two Regions 16429 006 BHATTI, [place] N DoD Modalities Electrical Stimulation Unattended Modalities Electrical Stimulation Unattended 51235 006 BHATTI, [place] N IFC, 100%, 80-150, 20 min, left interscap, max 21 pt notes relief. DoD Modalities Traction Modalities Traction 56534 0 006 BHATTI, [place] N Intersegmental - tx 9, lx 7, 10 min. DoD A isted Exercises [place] 08116 006 BHATTI, [place] N Cervical Therex: Tension release stretches for the neck. Reviewed with patient, handout provided. Corrective postural therex: Anterior chest/pec. major stretch, standing wall posture ex. for the neck and mid back. Reviewed with patient, handout provided. DoD Mobilization Soft Ti ue Mobilization Soft Tissue 17881 006 BHATTI, SPRING N pivot tx subocc 10m DoD Modalities Heat Hot Packs Modalities Heat Hot Packs 37636 006 BHATTI, SPR[place] N 20m tx. 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 Social History Type Response Date Comment Sourc e Tobacco smoking status NHIS VA-TOBACCO USE WI 30 MIN OF WAKEUP 11/19/2023 [facility] History of tobacco use VA-TOBACCO USE 30 YEARS OR MORE [facility] History of tobacco use ORYX ADMIT TOBACCO SCREEN YES 02/10[facility] History of tobacco use ID-TOBACCO USER EVERY DAY 09/02/2022 [facility] History of tobacco use ID-TOBACCO NEVER [facility]ED 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 History of tobacco use QUIT TOBACCO USE 1-7 YEARS AGO 10/12/2016 [facility] History of tobacco use QUIT TOBACCO USE 1-7 YEARS AGO 09/25/2015 [facility] History of tobacco use QUIT TOBACCO USE IN PAST YEAR 10/05/2013 [facility] This section is an empty social history section. [facility] Plan of Care List of future care activities from Department of Veterans [facility] facilities. Additional future care activities may be listed in the Assessment and Plan section. Date/Time Care Activity Care Activity Detail Facili ty 09/20/2024 AMBULATORY - MEDICINE [facility] 11/10/2024 [facility]ULAT[facility] - MEDICINE [facility] 07/22/2024 Consult Order COMMUNITY CARE-D ENTAL GENERAL Cons Oyster Picker's Choice [facility] 07/22/2024 Consult Order COMMUNITY CARE-D ENTAL GENERAL Cons [facility] Advance Directives List of completed, amended, or rescinded Advance Directives on record at Department of Veterans Affairs facilities. An actual copy of the Directive is not included. Date Advance Directive Provider Source 03/06/2023 ADVANCE DIRECTIVE BEV PETTIT [facility] 04/20/2020 ADVANCE DIRECTIVE DISCUSSION ERUM [facility] 02/24/2020 ADVANCE DIRECTIVE DISCUSSION POOL [facility] 10/30/2016 ADVANCE DIRECTIVE KULDEEP [facility] [facility]
[2024-09-03 13:20] LABS: Influenza A PCR NEGATIVE (Negative); Influenza B PCR NEGATIVE (Negative); Resp Syncy Virus RNA Qual PCR NEGATIVE (Negative); SARS COV2 PCR INHOUSE NEGATIVE (Negative)
[2024-09-03 13:30] VITALS: BP 145/93; PULSE 90; RESP 18; TEMP 36.9; O2SAT 99
[2024-09-03 13:34] VITALS: BP 145/93; PULSE 90; RESP 18; TEMP 36.9; O2SAT 99
== END 2024-09-03 13:35 | disposition home or self-care (01) ==
PROVIDERS: Physician Assistant; Emergency Provider Student in an Organized Health Care Education/Training Program; PCP Internal Medicine
DX: B34.9 Viral infection, unspecified (principal); R05.9 Cough, unspecified; J44.9 Chronic obstructive pulmonary disease, unspecified; Z03.818 Encounter for observation for suspected exposure to other biological agents ruled out
CPT/HCPCS: 0241U; 99282; 99283

== ENCOUNTER 2024-11-12 21:14 | Emergency (ER) | payer OTHER, SELFPAY ==
[2024-11-12 21:19] VITALS: BP 140/90; PULSE 84; O2SAT 96
[2024-11-12 21:23] VITALS: BP 120/75; PULSE 83; RESP 20; TEMP 36.9; O2SAT 96; BMI 26.6
--- OUTSIDE RECORDS SUMMARY | 2024-11-12 21:59 | XMS_ITS ---
Author Name [facility] [place] Organization [place] Address [address] [place] [address] Care Team Providers Care Boat Patcher Plastic Name Role Phone MARTIN BOWERS Primary Care Provider OPAL Mckay Primary Care Provider Unav ailable Selected Encounter This section includes the information on record at CT for the Encounter. Date/Time Encounter Type Encounter Description Reason Provider Source Nov 04, 2024 08:30 AM PT EVAL MOD COMPLEX 30 MIN PHYSICAL THERAPY ICD-10-CM M22.42 Chondromalacia patellae, left knee REGINALDO MOTT E Encounter Template Text not used by CT Assessments - Encounter Diagnoses This section includes the primary and secondary diagnoses documented for the Encounter. Date/Time Primary/Secondary Diagnosis Diagnosis Name Provider Source Nov 04, 2024 03:05 PM PRIMARY Chondromalacia patellae, left knee [facility]OTT [facility] [place] [facility] Plan of Treatment: Future Appointments (+ 6 months) and Future Tests (+/- 45 days) The Plan of Treatment section includes future care activities for the patient from all CT treatmentfacilities. This section includes future appointments and future orders which are active, pending or scheduled. Future Appointments This section includes appointments that were scheduled to occur 6 months from the date of the Encounter, up to a maximum of 20 appointments. The data comes from all CT treatment facilities. Appointment Date/Time Appointment Type Appointme nt Facility Name Nov 09, 2024 02:30 PM AMBULATORY - MEDICINE CT [facility] [place] [facility] Nov 16, 2024 09:00 AM AMBULATORY - MEDICINE [facility] C [facility] [facility] Dec 31, 2024 10:30 AM [facility] 2025 09:30 AM [facility] Active, Pending, and Scheduled Orders This section includes a listing of several types of active, pending, and scheduled orders, including clinic medications orders, diagnostic test orders, procedure orders and consult orders; where the start date of the order is 45 days before the date of the Encounter or 45 days after the date of theEncounter. The data comes from all [facility]. Test Date/Time Test Type Test Details Facility Name Nov 01, 2024 08:45 AM Consult Order COMMUNITY CARE-ORTHO SURGICAL Cons Wealth Management [facility] [place] [facility] Nov 01, 2024 12:55 PM Consult Order ACUPUNCTUR E/NHM OUTPT Cons Wealth Management Manager's [facility] Social History: Smoking Status (Most current) and Tobacco Use (All prior to encounter date) This section includes the most current, and the historical, smoking and tobacco- related health factors from the CT facility where the Encounter took place. Current Smoking Status This section includes the most current smoking, or tobacco-related health factor, from the [place] facility where the Encounter took place. Date/Time Current Smoking Status Comment Gino hernadez Nov 19, 2023 10:00 AM VA-TOBACCO USER EVERY DAY [facility] Tobacco Use History This section includes a history of the smoking, or tobacco-related health factors, that were collected on or before the date of the Encounter. The data comes from the [place] facility where the Encounter took place. 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 [facility] [place] [facility] Nov 19, 2023 10:00 AM VA-TOBACCO USE MED NO CT [facility] [place] [facility] Nov 19, 2023 10:00 AM VA-TOBACCO USE WI [address] [facility] [place] [facility] Nov 19, 2023 10:00 AM VA-TOBACCO USER EVERY DAY CT [facility] [place] [facility] February 10, 2023 01:00 PM ORYX ADMIT TOBACCO SCREEN YES CT [facility] [place] [facility] February 10, 2023 01:00 PM ORYX ADMIT TOBACCO USE CIGS GR 5D CT [facility] [place] [facility] February 10, 2023 01:00 PM ORYX DAILY TOBACCO DRAW OFF WORKER RECEIVED CT CN[facility]L [facility] [place] [facility] February 10, 2023 01:00 PM ORYX DAILY TOBACCO MEDS ORDERED CT [facility] [place] [facility] Sep 02, 2022 08:00 AM VA-TOBACCO USE [address] [facility] [place] [facility] Sep 02, 2022 08:00 AM VA-TOBACCO USE ADVICE CT CNTR [place] [facility] Sep 02, 2022 08:00 AM VA-TOBACCO USE DRAW OFF WORKER YES CT [facility]TRL [facility] [place] [facility] Sep 02, 2022 08:00 AM VA-TOBACCO USE MED NOTIFY PROVIDER CT [facility] [place] [facility] Sep 02, 2022 08:00 AM VA-TOBACCO USE WI [address] [facility] [place] [facility] Sep 02, 2022 08:00 AM VA-TOBACCO USER EVERY DAY CT [facility] [place] [facility] Oct 12, 2016 09:13 AM QUIT TOBACCO USE 1-[address] [facility] [place] [facility] Sep 25, 2015 10:24 AM QUIT TOBACCO USE 1-7 YEARS AGO [facility] [place] [facility] Oct 05, 2013 03:03 PM QUIT TOBACCO USE 1-7 YEARS AGO PT HAS QUIT LES THAN A YEAR AGO. CT [facility] [place] [facility] Oct 05, 2013 03:03 PM QUIT TOBACCO USE IN PAST YEAR CT [facility] [place] [facility] Advance Directives: All historical and current Section Date Range: From patient's date of to the date document was created. This section includes ALL of a patient's completed or amended CT Advance and Rescinded Directives. The entries below indicate that a directive exists for the patient, but an actual copy is not included with this document. The data comes from all CT facilities. Date Advance Directives Provider Source Mar 06, 2023 ADVANCE DIRECTIVE DISCUSSION BEV [facility]IT [facility] Mar 06, 2023 ADVANCE DIRECTIVE BEV PETTIT [facility] Apr 20, 2020 ADVANCE DIRECTIVE DISCUSSION ERUM MARTÍNEZ [facility] Feb 24, 2020 ADVANCE DIRECTIVE DISCUSSION POOL FUENTES [facility] Oct 30, 2016 ADVANCE DIRECTIVE KULDEEP FAM [facility] Encounter Notes: All associated encounter notes This section contains the clinical notes associated to the Encounter. 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 Got injured in [employer], playing basketball, torn meniscus, I have floating bodies in the back of the knee that lock up the knee. oarthoscopic ' and . I also hurt it further in the [place], and was supposed to get it fixed while in but discharged first and have been dealing with if for years now. Locks up on the left knee and it feels like it is in the posterior side. Pain medially. I keep falling down, slipping on ice. not picking my foot up high enough and catching it on curbs. Not paying attention to what I am doing. 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 This clinician has never seen/treated this patient prior to today. PMH: Chief complaint/ailment/injury: MARIA DOLORES/Date of onset: ( x ) Gradual ( ) Rapid Since onset: ( x ) Worsening ( ) Improving ( ) Staying the same Are your symptoms: ( ) Constant ( x ) Intermittent - I keep on hurting it. Prior PT care for this condition? ( ) No ( x ) Yes - PT was after surgery. Previous Medical Interventions: ( x ) Xray ( ) MRI/CTscan ( ) Injections ( x ) Other: surgery noted above C/O: ( x ) Pain: ( ) ROM: ( x ) Strength: ( ) Sensation: Pain rating on 0-10 VNS: Current: 4/10 At best: 0/10 At worst: 10/10 Location: medial knee pain rleft knee. Description of pain: ( x )aching ( x )throbbing ( x )sharp ( )shooting ( )stabbing ( )burning ( )cramping Alleviating factors:advil, tylonel, narcotics for my tooth that I use. 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 []Full-time []Part-time []Seeking employment []Disabled [x]Retired Current Exercise Habits: walking, falling At least 3x/wk? Details: Baseline function: [x]Independent ADL's/IADL's - Decline in ADL's/IADL's or recreation?: [x]Yes flares up Patient's Goals: 1)ortho surgery. 2)after surgery PT to make sure I am doing things correctly Active problems - Computerized Problem List is the source for the followin. Family history of malignant neoplasm of colon over age 50 2. Hyperlipidemia ([facility] [id number]) 3. Acute back pain - lumbar 4. Tinea unguium 5. Exposure to potentially hazardous substance 6. Homeless 7. Inguinal hernia 8. Cannabis dependence 9. Schizoaffective disorder, bipolar type 10. Alcohol dependence 11. Hypertension 12. Gastroesophageal reflux disease 13. Nicotine dependence 14. Bipolar disorder 15. Positive PPD 16. Left knee pain (SNOMED CT [id number]) 17. Asthma (SNOMED CT [id number]) II - Imaging Impression (max 1 occurrence) Comparison: Left knee radiographs from October 20, [...] No suprapatellar knee joint effusion is identified. RED FLAGS: [x]Recent Trauma-the other day fell,6 falls in past 2 weeks. Not paying attention. At this time in the eval it was determined that this patient is not a good fit for Physical therapy and would benefit from orthopedic surg consult to assess loose bodies of the knee for surgical intervention. [x]Age (50+) []Hx of Cancer []Fever/chills/night sweats []Unexplained weight loss []Recent infection []Immunosuppression []Night pain []Saddle anesthesia []Bowel/bladder dysfunction []LE neurological deficit OBJECTIVE: Posture: patellas significant lateral tilt and shift, on top ridge of lateral femoral condyle noted bilaterally, however patient reports no lateral knee pain at this time. Pt reports pain is primarily medial joint line and posterior near loose bodies of the knee. Gait: no significant gait disturbances noted. ASSESSMENT:Patient presents to Physical Therapy today with reports C/O:medial/postiorly medial left knee pain Signs/sx consistent w/:loose bodies in the posterior left knee. At this time patient is not a good fit for Physical therapy and would benefit from orthopedic surg consult to assess loose bodies of the knee for surgical intervention. As such this consult is already in place. Rehab Potential: []Good []Fair [x]Poor Potential Barriers: chronicity of symptoms, multiple comorbidities Psychosocial flags: mental health dx, entrenched/unhelpful beliefs about pain, clinically relevant catastrophization, signs of kinesiophobia /es/ REGINALDO MOTT PT, DPT PHYSICAL THERAPIST Signed: 11/04/2024 15:05 REGINALDO MOTT [facility]L [facility]
--- OUTSIDE RECORDS SUMMARY | 2024-11-12 21:59 | XMS_ITS ---
Author Name [facility] [place] Address [address] [place] [address] Care Team Providers Care Manager Quality Systems Name Role Phone MARTIN BOWERS Primary Care Provider OPAL Mckay Primary Care Provider Unav ailable Selected Encounter This section includes the information on record at [place] for the Encounter. Date/Time Encounter Type Encounter Description Reason Pro vider Source Nov 03, 2024 02:56 PM Outpatient Encounter [facility] Encounter Template Text not used by [place] Plan of Treatment: Future Appointments (+ 6 [...] Appointment Type Appointme nt Facility Name Nov 04, 2024 08:30 AM AMBULATORY - REHAB MEDICIN E [place] [facility] [facility] Nov 09, 2024 02:30 PM AMBULATORY - MEDICINE [place] C [facility] [place] [facility] Nov 16, 2024 09:00 AM AMBULATORY - MEDICINE [place] C [facility] [place] [facility] Dec 31, 2024 10:30 AM AMBULATORY - MEDICINE [place] C [facility] [place] [facility] 2025 09:30 AM AMBULATORY - MEDICINE [place] C [facility] Active, Pending, and Scheduled Orders This section includes a listing of several types of active, pending, and scheduled orders, including clinic medications orders, diagnostic test orders, procedure orders and consult orders; where the start date of the order is 45 days before the date of the Encounter or 45 days after the date of theEncounter. The data comes from all [place] treatment facilities. Test Date/Time Test Type Test Details Facility Name Nov 01, 2024 08:45 AM Consult Order COMMUNITY CARE-ORTHO SURGICAL Cons Foam Rubber Curer's Choice [facility] Nov 01, 2024 12:55 PM Consult Order ACUPUNCTUR E/NHM OUTPT Cons Foam Rubber [facility] Social History: Smoking Status (Most [...] took place. Date/Time Current Smoking Status Comment [facility] Nov 19, 2023 10:00 AM VA-TOBACCO USE [place] 30 MIN [facility]UP [facility] Tobacco Use History This section includes a history of the smoking, or tobacco-related health factors, that were collected on or before the date of the Encounter. The data comes from the [place] facility where the Encounter took place. 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 ANALYST NO [place] [facility] [place] [facility] Nov 19, 2023 10:00 AM VA-TOBACCO USE MED NO [facility] Nov 19, 2023 10:00 AM VA-TOBACCO USE [place] 30 MIN OF WAKEUP [facility] [place] [facility] Nov 19, 2023 10:00 AM VA-TOBACCO USER EVERY DAY [facility] February 10, 2023 01:00 PM ORYX ADMIT TOBACCO SCREEN YES [facility] [place] February 10, 2023 01:00 PM ORYX ADMIT TOBACCO USE CIGS GR 5D [facility] February 10, 2023 01:00 PM ORYX DAILY TOBACCO EPIC BEACON ANALYST RECEIVED [facility] February 10, 2023 01:00 PM ORYX DAILY TOBACCO MEDS ORDERED [facility] Sep 02, 2022 08:00 AM VA-TOBACCO USE 30 YEARS OR MORE [facility] Sep 02, 2022 08:00 AM VA-TOBACCO USE ADVICE [facility] Sep 02, 2022 08:00 AM VA-TOBACCO USE EPIC BEACON ANALYST YES [facility] Sep 02, 2022 08:00 AM VA-TOBACCO USE MED NOTIFY PROVIDER [facility] Sep 02, 2022 08:00 AM VA-TOBACCO USE WI 30 MIN OF WAKEUP [facility] Sep 02, 2022 08:00 AM VA-TOBACCO USER EVERY DAY [facility] Oct 12, 2016 09:13 AM QUIT TOBACCO USE 1-7 YEARS AGO [facility] Sep 25, 2015 10:24 AM QUIT TOBACCO USE 1-7 YEARS AGO [facility] Oct 05, 2013 03:03 PM QUIT TOBACCO USE 1-7 YEARS AGO PT HAS QUIT LES THAN A YEAR AGO. [facility] Oct 05, 2013 03:03 PM QUIT TOBACCO USE IN PAST YEAR [facility] Advance Directives: All historical and [...] 06, 2023 ADVANCE DIRECTIVE SU PETTITEstephanie Hummel [facility] Mar 06, 2023 ADVANCE DIRECTIVE DISCUSSION BEV PETTIT [facility] Apr 20, 2020 ADVANCE DIRECTIVE DISCUSSION ERUM MARTÍNEZ [facility] Feb 24, 2020 ADVANCE DIRECTIVE DISCUSSION POOL FUENTES [facility] Oct 30, 2016 ADVANCE DIRECTIVE KULDEEP FAM [facility] Encounter Notes: All associated encounter notes This section contains the clinical notes associated to the Encounter. Date/Time Encounter Note(s) Provider Source Nov 03, 2024 02:56 PM ADMINISTRATIVE NOT E: LOCAL TITLE: ADMINISTRATIVE NOTE STANDARD TITLE: ADMINISTRATIVE NOTE DATE OF NOTE: NOV 03, 2024@14:56 ENTRY DATE: NOV 03, 2024@14:57:03 AUTHOR: MARILIA DEWEY EXP COSIGNER: URGENCY: STATUS: COMPLETED Toño Marrero from [facility] court called asking to karen with in regrads to this .Ph# to call back [phone] /brown/ MARILIA DEWEY LEAD LURE MAKER Signed: 11/03/2024 14:58 Receipt Acknowledged By: 11/03/2024 15:04 /brown/ LALO GARCIA, PhD Clinical Psychologist MARILIA DEWEY [facility]
--- OUTSIDE RECORDS SUMMARY | 2024-11-12 21:59 | XMS_ITS ---
Author Name [facility] [place] [place] Organization [place] Address [address] [place] [address] Care Team Providers Care Cna Hha Name Role Phone MARTIN BOWERS Primary Care Provider OPAL Mckay Primary Care Provider Unav ailable Selected Encounter This section includes the information on record at [place] for the Encounter. Date/Time Encounter Type Encounter Description Reason Pro vider Source Oct 15, 2024 01:30 PM Outpatient Encounter COMMUNITY CARE CONSULT IHE Encounter [...] Date/Time Appointment Type Appointme nt Facility Name Oct 20, 2024 10:45 AM AMBULATORY - MEDICINE [facility] [place] [facility] Nov 01, 2024 08:00 AM AMBULATORY - MEDICINE [facility] [place] [facility] Nov 02, 2024 09:00 AM AMBULATORY - MEDICINE [facility] [place] [facility] Nov 02, 2024 11:00 AM AMBULATORY - MEDICINE [place] C [place] [facility] Nov 03, 2024 01:00 PM AMBULATORY - MEDICINE [place] C [place] [facility] Nov 04, 2024 08:30 AM AMBULATORY - REHAB MEDICIN E [place] [facility] [place] [facility] Nov 09, 2024 02:30 PM AMBULATORY - MEDICINE [place] C [place] [facility] Nov 16, 2024 09:00 AM AMBULATORY - MEDICINE [place] C [place] [place] [facility] Dec 31, 2024 10:30 AM AMBULATORY - MEDICINE [place] [facility] [place] [place] [facility] 2025 09:30 AM [facility] Active, Pending, [...] AM Consult Order COMMUNITY CARE-ORTHO SURGICAL Cons [facility] Nov 01, 2024 12:55 PM Consult Order ACUPUNCTUR E/NHM OUTPT Cons Lifter[facility] Social History: Smoking Status (Most current) [...] 2023 10:00 AM VA-TOBACCO USER EVERY DAY [facility] Tobacco Use History This section includes a history of the smoking, or tobacco-related health factors, that were collected on or before the date of the Encounter. The data comes from the [place] facility where the Encounter took place. 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 [place] [facility] [place] [facility] Nov 19, 2023 10:00 AM VA-TOBACCO USE MED NO [place] [facility] [place] [facility] Nov 19, 2023 10:00 AM VA-TOBACCO USE WI 30 MIN OF WAKEUP [place] [facility] [place] [facility] Nov 19, 2023 10:00 AM VA-TOBACCO USER EVERY DAY [place] [facility] [place] [facility] February 10, 2023 01:00 PM ORYX ADMIT TOBACCO SCREEN YES [place] [facility] [place] [facility] February 10, 2023 01:00 PM ORYX ADMIT TOBACCO USE CIGS GR 5D [place] [facility] [place] [facility] February 10, 2023 01:00 PM ORYX DAILY TOBACCO METAL MACHINE SETTER RECEIVED [place] [facility] [place] [facility] February 10, 2023 01:00 PM ORYX DAILY TOBACCO MEDS ORDERED [place] [facility] [place] [facility] Sep 02, 2022 08:00 AM VA-TOBACCO USE 30 YEARS OR MORE [place] [facility] [place] [facility] Sep 02, 2022 08:00 AM VA-TOBACCO USE ADVICE [place] [facility] [place] [facility] Sep 02, 2022 08:00 AM VA-TOBACCO USE METAL MACHINE SETTER YES [place] [facility] [place] [facility] Sep 02, 2022 08:00 AM VA-TOBACCO USE MED NOTIFY PROVIDER [place] [facility] [place] [facility] Sep 02, 2022 08:00 AM VA-TOBACCO USE WI 30 MIN OF WAKEUP [place] [facility] [place] [facility] Sep 02, 2022 08:00 AM VA-TOBACCO USER EVERY DAY [place] [facility] [place] [facility] Oct 12, 2016 09:13 AM QUIT TOBACCO USE 1-7 YEARS AGO [facility] [place] [facility] Sep 25, 2015 10:24 AM QUIT TOBACCO USE 1-7 YEARS AGO [facility] [place] [facility] Oct 05, 2013 03:03 PM QUIT [...] 20, 2020 ADVANCE DIRECTIVE DISCUSSION ERUM MARTÍNEZ [facility] Feb 24, 2020 ADVANCE DIRECTIVE [...] treatment facilities. Date/Time Radiology Report Provider Source Sep 20, 2024 03:48 PM CHEST (2 VIEWS): JEYSON SANCHEZ [id number] -[id number] M Exm Date: SEP 20, 2024@15:48 Req Phys: OPAL REEVES Loc: CWM/NO/PACT 4 (Req'g Loc) Img Loc: [facility] 1 Service: Unknown [place] [address] (Case [id number] COMPLETE) CHEST (2 VIEWS) (RAD Detailed) CPT:68402 Reason for Study: remote hx of / 2022 CXR normal Clinical History: Report Status: Verified Date Reported: SEP 20, 2024 Date Verified: SEP 20, 2024 Solar Energy System Installer E-Sig:/BROWN/MADISON FELIZ Report: Exam: Chest 2-views (PA LAT) obtained on 09/20/2024 at 3:48 PM HISTORY: Remote history of tuberculosis. COMPARISON: 06/19/2023 TECHNIQUE: Frontal and lateral views of the chest. Bone suppression algorithm applied. FINDINGS: Lines and tubes: None. Lungs: Clear bilaterally. No nodules or masses. Airways: Central airways are patent. No radiographic evidence of bronchiectasis. Pleura: No effusion or pneumothorax. Cardiomediastinal silhouette and pulmonary vessels: No cardiomegaly or vascular congestion. Bones: Normal mineralization. No fractures or pathological lesions. Soft tissues: No calcifications or localized swelling. Impression: 1. No radiographic sign of acute cardiopulmonary disease. Primary Diagnostic Code: No immediate attention required Primary Interpreting Staff: MADISON FELIZ Staff Physician (Lui) /MADISON POLANCO [facility] Encounter Notes: All associated encounter notes This section contains the clinical notes associated to the Encounter. Date/Time Encounter Note(s) Provider Source Oct 15, 2024 01:30 PM NONVA NOTE: LOCAL TITLE: [facility] COORD PLAN STANDARD TITLE: NONVA NOTE DATE OF NOTE: OCT 15, 2024@13:30 ENTRY DATE: OCT 15, 2024@13:30:30 AUTHOR: BEV SCHULER EXP COSIGNER: URGENCY: STATUS: COMPLETED Emergency Notification Intake Date Presenting to the Facility: Aug Method of Contact: Notified from [facility] worklist Notification ID: [id number] [facility] Referral #: [id number] [facility] Name: Hospital: [facility] Address: City: [place] State: [place] Zip Code: Phone : [facility] Point of Contact: Name: [place] Phone: Chief complaint: LEFT PINKY BLEEDING Primary Diagnosis: Disposition Discharged Date of discharge: Aug Discharge to Comment: ER Only /brown/ BEV ROBERTSON Signed: 10/15/2024 13:31 Receipt Acknowledged By: * AWAITING SIGNATURE * LEONOR BECKER * AWAITING SIGNATURE * EDWARD MILES * AWAITING SIGNATURE * BLESSING PABLO * AWAITING SIGNATURE * NEEMA HUMPHRIES DAWN MARIE [place]
--- OUTSIDE RECORDS SUMMARY | 2024-11-12 22:00 | XMS_ITS ---
Author Name [facility] [place] Organization [place] Address [address] [place] [address] Care Team Providers Care Relay Checker Name Role Phone MARTIN BOWERS Primary Care Provider OPAL Mckay Primary Care Provider Unav ailable Selected Encounter This section includes the information on record at [place] for the Encounter. Date/Time Encounter Type Encounter Description Reason Pro vider Source Nov 09, 2024 02:30 PM Outpatient Encounter ELECT[employer]IC[employer] IHE Encounter Template Text not used by [place] Plan of Treatment: Future Appointments (+ 6 months) and Future Tests (+/- 45 days) The Plan of Treatment section includes future care activities for the patient from all [place] treatmentfacilities. This section includes future appointments and future orders which are active, pending or scheduled. Future Appointments This section includes appointments that were scheduled to occur 6 months from the date of the Encounter, up to a maximum of 20 appointments. The data comes from all [place] treatment facilities. Appointment Date/Time Appointment Type Appointme nt Facility Name Nov 16, 2024 09:00 AM AMBULATORY - MEDICINE [facility] [place] [facility] Dec 31, 2024 10:30 AM AMBULATORY - MEDICINE [facility] [place] [facility] 2025 09:30 AM AMBULATORY - MEDICINE [facility] [place] [facility] Active, Pending, and Scheduled Orders This section includes a listing of several types of active, pending, and scheduled orders, including clinic medications orders, diagnostic test orders, procedure orders and consult orders; where the start date of the order is 45 days before the date of the Encounter or 45 days after the date of theEncounter. The data comes from all [place] treatment facilities. Test Date/Time Test Type Test Details Facility Name Nov 01, 2024 08:45 AM Consult Order COMMUNITY CARE-ORTHO SURGICAL Cons Author'S Agent's Choice [place] [facility] Nov 01, 2024 12:55 PM Consult Order ACUPUNCTUR E/NHM OUTPT Cons Author'S Agent's Choice [place] [facility] Social History: Smoking Status (Most current) and Tobacco Use (All prior to encounter date) This section includes the most current, and the historical, smoking and tobacco- related health factors from the [place] facility where the Encounter took place. Current Smoking Status This section includes the most current smoking, or tobacco-related health factor, from the [place] facility where the Encounter took place. Date/Time Current Smoking Status Comment [facility] Nov 19, 2023 10:00 AM VA-TOBACCO USER EVERY DAY [place] [facility] Tobacco Use History This section includes a history of the smoking, or tobacco-related health factors, that were collected on or before the date of the Encounter. The data comes from the [place] facility where the Encounter took place. 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 [place] [facility] Nov 19, 2023 10:00 AM VA-TOBACCO USE MED NO [place] [facility] Nov 19, 2023 10:00 AM VA-TOBACCO USE [place] 30 MIN OF WAKEUP [place] [place] [facility] Nov 19, 2023 10:00 AM VA-TOBACCO USER EVERY DAY [place] [place] [facility] February 10, 2023 01:00 PM ORYX ADMIT TOBACCO SCREEN [facility] February 10, 2023 01:00 PM ORYX ADMIT TOBACCO USE CIGS GR 5D [facility] February 10, 2023 01:00 PM ORYX DAILY TOBACCO MANAGER OF FINANCIAL PLANNING RECEIVED [facility] February 10, 2023 01:00 PM ORYX DAILY TOBACCO MEDS ORDERED [facility] Sep 02, 2022 08:00 AM VA-TOBACCO USE 30 YEARS OR MORE [facility] Sep 02, 2022 08:00 AM VA-TOBACCO USE ADVICE [facility] Sep 02, 2022 08:00 AM VA-TOBACCO USE 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 [facility] Oct 05, 2013 03:03 PM QUIT TOBACCO USE IN PAST YEAR [facility] Advance Directives: All historical and current Section Date Range: From patient's date of to the date document was created. This section includes ALL of a patient's completed or amended [place] Advance and Rescinded Directives. The entries below indicate that a directive exists for the patient, but an actual copy is not included with this document. The data comes from all [place] facilities. Date Advance Directives Provider Source Mar 06, 2023 ADVANCE DIRECTIVE BEV PETTIT [facility] Mar 06, 2023 ADVANCE DIRECTIVE DISCUSSION BEV PETTIT [facility] Apr 20, 2020 ADVANCE DIRECTIVE DISCUSSION ERUM MARTÍNEZ [facility] Feb 24, 2020 ADVANCE DIRECTIVE DISCUSSION POOL FUENTES [facility] Oct 30, 2016 ADVANCE DIRECTIVE KULDEEP [facility] Encounter Notes: All associated encounter notes This section contains the clinical notes associated to the Encounter. Date/Time Encounter Note(s) Provider Source Nov 12, 2024 03:39 PM CLERICAL NOTE: LOCAL TITLE: APPOINTMENT NO SHOW STANDARD TITLE: CLERICAL NOTE DATE OF NOTE: NOV 12, 2024@15:39 ENTRY DATE: NOV 12, 2024@15:39:18 AUTHOR: JAYLA MITTAL EXP COSIGNER: URGENCY: STATUS: COMPLETED Patient Name: JEYSON SANCHEZ Patient SSN: [id number] Date and time of Appointment No show : 11/09/24 14:30 PATIENT PHONE - PHONE NUMBER [CELLULAR] - Patient's medical record was reviewed. Follow-up actions were determined and initiated: Please check/complete as applies: [ ]Telephoned Directly [ ]Re-scheduled for next available appt [X]Sent a N0-show letter ( must call for appointment) [ ]Other (Emergent/Overbook, etc.): Additional Comments: Future Clinic Visits 11/16/2024 09:00 [facility] 1 12/31/2024 10:30 [facility] MED REHAB PA 1 2025 09:30 [facility] PACT 4 /brown/ JAYLA MITTAL AMSA Signed: 11/12/2024 15:39 JAYLA MITTAL [facility]
--- OUTSIDE RECORDS SUMMARY | 2024-11-12 22:00 | XMS_ITS | Continuity of Care Document ---
Author Name [facility] Organization [facility] Care Team Providers Care Casino Host Name Role Phone [facility] Unavailable Unavailable Problems Combined list of problems from Department of Defense and Veterans Affairs facilities. It does not include entries that were removed or entered in error. Problem Status Onset Date Problem Type Date of Resolution Comments Source Asthma (SNOMED [place] 901870682) Active 014 Condition [facility] [place] Left knee pain (SNOMED CT 096982961019874) Active 014 Condition Jul 14, 2024 Entered [...] red indications on his peak flow met [facility] Blood Pressure Isolated Elevated Inactive Condition [facility] visit for: screening exam Inactive Condition [facility] Acute back pain - lumbar Active Condition [facility] [place] [facility] Alcohol abuse Active Condition Nov Entered By: KOLBY SCHWARZ Comment: Rehab x 2 [facility] Alcohol dependence Active Condition [facility] Asthma Active Condition [facility] Bipolar disorder Active Condition [facility] Bipolar II disorder Active Condition [facility] Bipolar II disorder, most recent episode hypomanic Active Condition [facility] Cannabis dependence Active Condition [facility] [place] [facility] Exposure to potentially hazardous substance Active Condition Nov 12, 2023 Entered By: TESS SMALLWOOD Comment: Original PORTIA Screen completed on 09/02/22 [facility] [place] [facility] Exposure to Potentially Hazardous Substance ([facility] [id number]) Active Condition [facility] Family history of malignant neoplasm of colon over age 50 Active Condition Jul 14, 2024 Entered By: DARLENE REEVES Comment: FH of colon cancer in Father, father alive age 77 in 2023 [facility] [place] [facility] Gastroesophageal reflux disease Active Condition [facility] HLD - Hyperlipidemia Active Condition [facility] Homeless Active Condition [facility] [place] [facility] HTN-Hypertension (SCT 36786860) Active Condition [facility] Hyperlipidemia (SCT 93666248) Active Condition [facility] Hypertension Active Condition Jul 14, 2024 Entered By: DARLENE REEVES Comment: vet resumed using amlodipine 5/ BP at home improving [facility] [place] [facility] Inguinal hernia Active Condition Jun 09, 2024 Entered By: DARLENE REEVES Comment: vet had CT confirming left inguinal hernia February 2023 [facility] Lack of Housing (ICD-9-CM V60.0) Active Condition [facility]) Nicotine dependence Active Condition [facility] Pain in left knee (SNOMED CT 305789171218781) Active Condition Nov 27 8 Entered By: KOLBY SCHWARZ Comment: Arthroscopic surgeries x 2 [facility] Positive PPD Active Condition Sep 02, 2022 Entered By: FABRICIO PRINCE Comment: Status post 1 year of treatment with tb meds [facility] Schizoaffective disorder, bipolar type Active Condition [facility] Severe alcohol dependence Active Condition [facility] Tinea unguium Active Condition [facility] Depression Inactive Condition 08/27/2018 [facility] Diagnosis: ICD-10-CM M22.42 Chondromalacia patellae, left knee Active Diagnosis [facility] Diagnosis: ICD-10-CM H25.813 Combined forms of age-related cataract, bilateral Active Diagnosis [facility] Diagnosis: ICD-10-CM M54.59 Other low back pain Active Diagnosis [facility] Diagnosis: ICD-10-CM M25.562 Pain in left knee Active Diagnosis [facility] [place] [facility] Diagnosis: ICD-10-CM J45.998 Other asthma Active Diagnosis [facility] Diagnosis: ICD-10-CM I10 Essential (primary) hypertension Active Diagnosis [facility] Diagnosis: ICD-10-CM L60.3 Nail dystrophy Active Diagnosis [facility] Diagnosis: ICD-10-CM F25.0 Schizoaffective disorder, bipolar type Active Diagnosis [facility] Diagnosis: ICD-10-CM Z71.89 Other specified counseling Active Diagnosis [facility] Diagnosis: ICD-10-CM F10.24 Alcohol dependence with alcohol-induced mood disorder Active Diagnosis [facility] Diagnosis: ICD-10-CM Z65.3 Problems related to other legal circumstances Active Diagnosis [facility] Diagnosis: ICD-10-CM Z46.0 Encounter for fit/adjst of spectacles and contact lenses Active Diagnosis [facility] Diagnosis: ICD-10-CM H25.013 Cortical age-related cataract, bilateral Active Diagnosis [facility] Diagnosis: ICD-10-CM Z59.01 Sheltered homelessness Active Diagnosis [facility] Medications Combined list of outpatient medications from Department of Defense and Veterans Affairs facilities.Medications provided include 1) outpatient medications from the last 15 months, and 2) patient-reported medications. Medication Details Route Status Patient Instructions Prescription Expires Prescription Number Last Dispense Date Ordering Provider Order Date Order Qty Source ACETAMINOPH EN 500MG TAB TAKE TWO TABLETS BY MOUTH TWICE DAILY NEEDED FOR PAIN ORAL ACTIVE 09/21/2025 [id number] AMELIA HARTLEY 2023 100 [facility] ACETAMINOPH EN 500MG TAB TAKE TWO TABLETS BY MOUTH TWICE DAILY NEEDED ORAL DISCONT INUED (EDIT) 06/10/2025 [id number] 4 AMELIA HARTLEY 2023 100 [facility] ACETAMINOPH EN 500MG TAB TAKE TWO TABLETS BY MOUTH TWICE DAILY NEEDED ORAL DISCONT INUED 04/01/2024 [id number] MIROT,ADA M M 2022 60 [facility] ALBUTEROL 90MCG/ACTUA T (CFC-F) INHL,ORAL,8 .5GM DOSE COUNTER INHALE 2 PUFFS BY MOUTH FOUR TIMES DAILY NEEDED RESPIR ATORY (INHAL ATION) SUSPEND ED 06/10/2025 [id number] 5 AMELIA HARTLEY 2023 3 [facility] ALBUTEROL SO4 0.083% INHL,3ML INHALE 1 AMPULE IN NEBULIZE R FOUR TIMES DAILY NEEDED FOR ASTHMA ATTACK FOR BREATHIN G RESPIR ATORY (INHAL ATION) ACTIVE 09/21/2025 [id number] 4 AMELIA HARTLEY 2023 60 [facility] [place] [facility] AMLODIPINE BESYLATE 5MG TAB TAKE ONE TABLET BY MOUTH ONCE DAILY FOR BLOOD PRESSURE /HEART, DO NOT TAKE WITH GRAPEFRU IT JUICE ORAL ACTIVE 06/10/2025 [id number] 5 AMELIA HARTLEY 2023 90 [facility] [place] [facility] ATORVASTATI N CA 40MG TAB TAKE ONE-HALF TABLET BY MOUTH ONCE DAILY FOR HIGH CHOLESTE ROL ORAL ACTIVE 09/21/2025 [id number] 5 AMELIA HARTLEY 2023 45 [facility] CHOLECALCIF BEATRIZ 25MCG (1,000UNIT) TAB TAKE ONE TABLET BY MOUTH ONCE DAILY FOR VITAMIN D DEFICIEN CY FOR VITAMIN SUPPLEME NTATION ORAL ACTIVE 09/21/2025 [id number] 5 AMELIA HARTLEY 2023 90 [facility] [place] [facility] IBUPROFEN 800MG TAB TAKE ONE TABLET BY MOUTH THREE TIMES DAILY NEEDED FOR PAIN TAKE WITH FOOD ORAL ACTIVE 09/21/2025 [id number] 5 AM[facility] HARTLEY 2023 200 [facility] INDOMETHACI N 50MG CAP TAKE ONE CAPSULE BY MOUTH TWICE DAILY NEEDED FOR GOUT ORAL DISCONT INUED BY PROVIDE R 07/02/2025 [id number] 4 AMELIA HARTLEY 2023 60 [facility] [place] [facility] LIDOCAINE 5% PATCH APPLY 1 PATCH TOPICALL Y ONCE DAILY FOR NERVE PAIN (LEAVE PATCH ON FOR 12 HOURS, THEN REMOVE PATCH) TOPICA L ACTIVE 07/29/2025 [id number] 5 AMELIA HARTLEY 2023 30 [facility] [place] [facility] METHOCARBAM OL 750MG TAB TAKE ONE TABLET BY MOUTH THREE TIMES DAILY NEEDED ORAL 04/01/2024 [id number] 4 DESIRAE PEREZ M 2022 45 [facility] [place] [facility] MULTIVITAMI NS W/MINERALS CAP/TAB TAKE ONE CAP/TAB BY MOUTH ONCE DAILY ORAL ACTIVE 06/10/2025 [id number] 5 AMELIA HARTLEY 2023 100 [facility] [place] NICOTINE 14MG/24HRS PATCH APPLY 1 PATCH TO SKIN ONCE DAILY FOR SMOKING CESSATIO N (REMOVE OLD PATCH BEFORE APPLYING NEW PATCH) TRANSD ERMAL ACTIVE 09/21/2025 [id number] 5 AMELIA HARTLEY 2023 28 [facility] [place] [facility] NICOTINE POLACRILEX 4MG MINI LOZENGE DISSOLVE 1 LOZENGE BY MOUTH SIX TIMES A DAY NEEDED FOR NICOTINE REPLACEM ENT ORAL ACTIVE 09/21/2025 [id number] 5 AMELIA HARTLEY 2023 81 [facility] [place] OLANZAPINE 5MG TAB TAKE ONE TABLET BY MOUTH AT BEDTIME ORAL DISCONT INUED BY PRINCE R 11/19/2024 [id number] 4 JAMES LONG MD 2023 30 [facility] [place] [facility] OLANZAPINE 5MG TAB TAKE ONE TABLET BY MOUTH AT BEDTIME ORAL DISCONT INUED (EDIT) 08/08/2024 [id number] 4 JAMES LONG MD 2022 30 [facility] [place] [facility] OMEPRAZOLE 20MG CAP,EC TAKE 1 CAPSULE BY MOUTH EVERY MORNING 30 MINUTES BEFORE BREAKFAS T ORAL ACTIVE AMELIA HARTLEY 2023 [facility] [place] QUETIAPINE FUMARATE 100MG TAB TAKE ONE TABLET BY MOUTH AT BEDTIME AND TAKE ONE TABLET AT BEDTIME NEEDED AND TAKE ONE TABLET AT BEDTIME NEEDED SCHIZOAF FECTIVE BIPOLAR/ SLEEP ORAL ACTIVE 07/29/2025 [id number] 5 JAMES LONG MD 2023 90 [facility] [place] [facility] QUETIAPINE FUMARATE 100MG TAB TAKE ONE TABLET BY MOUTH AT BEDTIME AND TAKE ONE TABLET AT BEDTIME NEEDED AND TAKE ONE TABLET AT BEDTIME NEEDED SCHIZOAF FECTIVE BIPOLAR/ SLEEP ORAL DISCONT INUED (EDIT) 06/18/2025 [id number] JAMES LONG MD 2023 90 [facility] TRAZODONE HCL 100MG TAB TAKE ONE TABLET BY MOUTH AT BEDTIME AND TAKE ONE-HALF TABLET AT BEDTIME NEEDED SLEEP ORAL ACTIVE 07/29/2025 [id number] 5 JAMES LONG MD 2023 45 [facility] TRAZODONE HCL 100MG TAB TAKE ONE TABLET BY MOUTH AT BEDTIME AND TAKE ONE-HALF TABLET AT BEDTIME NEEDED SLEEP ORAL DISCONT INUED (EDIT) 06/18/2025 [id number] 4 JAMES LONG MD 2023 45 [facility] Allergies, Adverse Reactions, Alerts Combined list of allergies from Department of Defense and Veterans Affairs facilities. It does not include entries that were removed or entered in error. Substance Category Reaction Severity Reaction type Status Date Reported Comments Source CATS Propensity to adverse reaction (finding) active 3 [facility] [place] [facility] CATS Propensity to adverse reaction (finding) Urticaria active 0 [facility] No Known Allergies Drug allergy (disorder) active 7 Blaine Pierre TUBERCULIN, PURIFIED PROTEIN DERIVATIVE Propensity to adverse reactions to drug (finding) Eruption active 0 [facility] Immunizations Combined list of available immunizations from the Department of Defense and Veterans Affairs facilities. Immunization Series Date Given Administered By Site Reaction Lot Number CVX Code Drug Special Events Coordinator Status Comments Source INFLUENZA, SPLIT VIRUS, TRIVALENT, PF 2023 RACHEL VALENCIA LEFT DELTO ID [id number] 140 complet ed [facility] COVID-19 (MODERNA), MRNA, LNP-S, PF, 100 MCG/0.5ML DOSE OR 50 MCG/0.25ML DOSE 1 2021 NEMO ANDREW LEFT DELTO ID [id number] 207 complet ed [facility] [place] TDAP 2017 115 complet ed [facility] FLU,3 YRS (HISTORICAL) 2015 88 complet ed Site: Left Deltoid [facility] [place] PNEUMOCOCCAL POLYSACCHARID E PPV23 2015 33 complet ed [facility] [place] DTAP, UNSPECIFIED FORMULATION 2013 107 complet ed Site: Right Deltoid [facility] [place] FLU,3 YRS (HISTORICAL) 2013 88 complet ed Site: Right Deltoid [facility] [place] tetanus and diphtheria toxoids, adsorbed, preservative free, [...] antigen)-reti red CODE 0 2005 Unknown, Provider [id number] Genoom. ([facility]) complet ed influenza virus vaccine, split [...] polysaccharid e vaccine 1 2005 MILAGRO SINGLETON Dariel [id number] Sanofi Pasteur ([facility]) complet ed typhoid Vi capsular polysacch aride [...] antigen)-reti red CODE 1 1999 Unknown, Provider [id number] 15 Maida ([facility]) complet ed influenza virus vaccine, split [...] Jun 17, 2024 02:14 PM Reporting Lab: [facility] [place] [address] Performing Lab: [facility] [address] [facility] [address] [facility] LIPID PANEL FASTING TRIGLYCERI DE [MASS/VOLU ME] IN SERUM OR PLASMA 70 mg/dL 0 - 150 07/06 Specimen Type: SERUM No comment entered. Ordering Provider: SINA LONG MD Report Released Date/Time: Jun 17, 2024 02:14 PM Reporting Lab: [facility] [address] Performing Lab: [facility] [place] [address] [facility] [place] [facility] LIPID PANEL FASTING CHOLESTERO L IN LDL [MASS/VOLU ME] IN SERUM OR PLASMA BY CALCULATIO N 171 mg/dL 0 - 129 07/06 H Specimen Type: SERUM No comment entered. Ordering Provider: SINA LONG MD Report Released Date/Time: Jun 17, 2024 02:14 PM Reporting Lab: [facility] [place] [facility] [address] [facility] [address] Performing Lab: [facility] [address] [address] [facility] LIPID PANEL FASTING CHOLESTERO L.TOTAL/CH OLESTEROL IN HDL [MASS RATIO] IN SERUM OR PLASMA 3.8 07/06 Specimen Type: SERUM No comment entered. Ordering Provider: SINA LONG MD Report Released Date/Time: Jun 17, 2024 02:14 PM Reporting Lab: [facility] [place] [address] [address] Performing Lab: [facility] [address] [address] [facility] LIPID PANEL FASTING CHOLESTERO L IN HDL [MASS/VOLU ME] IN SERUM OR PLASMA 66 mg/dL 40 - 60 07/06 H Specimen Type: SERUM No comment entered. Ordering Provider: SINA LONG MD Report Released Date/Time: Jun 17, 2024 02:14 PM Reporting Lab: [facility] [place] [address] [address] Performing Lab: [facility] [place] [address] [address] [facility] HEMOGLOB IN A1C PANEL HEMOGLOBIN A1C/HEMOGL [...] Jul 01, 2024 03:56 PM Reporting Lab: [facility] [place] [facility] [address] [facility] [address] Performing Lab: [facility] [place] [facility] [address] [facility] [address] [facility] [place] [facility] CALCIUM CALCIUM [MASS/VOLU ME] IN SERUM OR PLASMA 9.8 mg/dL 8.5 - 10.2 07/06 Specimen Type: SERUM No comment entered. Ordering Provider: OPAL RAZO Report Released Date/Time: Jul 01, 2024 03:56 PM Reporting Lab: [facility] [place] [address] [address] Performing Lab: [facility] [place] [facility] [address] [facility] [address] [facility] [place] [facility] LIVER FUNCTION PROTEIN [MASS/VOLU ME] IN SERUM OR PLASMA 7.4 g/dL 6.0 - 8.3 07/06 Specimen Type: SERUM No comment entered. Ordering Provider: OPAL RAZO Report Released Date/Time: Jul 01, 2024 03:56 PM Reporting Lab: [facility] [place] [facility] [address] [facility] [address] Performing Lab: [facility] [place] [facility] [address] [facility] [address] [facility] [place] [facility] LIVER FUNCTION ALBUMIN [MASS/VOLU ME] IN SERUM OR PLASMA 4.4 g/dL 3.5 - 5.0 07/06 Specimen Type: SERUM No comment entered. Ordering Provider: OPAL RAZO Report Released Date/Time: Jul 01, 2024 03:56 PM Reporting Lab: [facility] [place] [address] [address] Performing Lab: [facility] [place] [facility] [address] [facility] [address] [facility] [place] [facility] LIVER FUNCTION ALKALINE PHOSPHATAS E [ENZYMATIC ACTIVITY/V OLUME] IN SERUM OR PLASMA 95 U/L 40 - 150 07/06 Specimen Type: SERUM No comment entered. Ordering Provider: OPAL RAZO Report Released Date/Time: Jul 01, 2024 03:56 PM Reporting Lab: [facility] [place] [facility] [address] [facility] [address] Performing Lab: [facility] [place] [facility] [address] [facility] [address] [facility] [place] [facility] LIVER FUNCTION ASPARTATE AMINOTRANS FERASE [ENZYMATIC ACTIVITY/V OLUME] IN SERUM OR PLASMA 21 U/L 5 - 34 07/06 Specimen Type: SERUM No comment entered. Ordering Provider: OPAL RAZO Report Released Date/Time: Jul 01, 2024 03:56 PM Reporting Lab: [facility] [place] [facility] [address] [facility] [address] Performing Lab: [facility] [place] [facility] [address] [facility] [address] [facility] [place] [facility] LIVER FUNCTION ALANINE AMINOTRANS FERASE [ENZYMATIC ACTIVITY/V OLUME] IN SERUM OR PLASMA 34 U/L 07/06 Specimen Type: SERUM No comment entered. Ordering Provider: OPAL RAZO Report Released Date/Time: Jul 01, 2024 03:56 PM Reporting Lab: [facility] [place] [facility] [address] [facility] [address] Performing Lab: [facility] [place] [facility] [address] [facility] [address] [facility] [place] [facility] LIVER FUNCTION BILIRUBIN. TOTAL [MASS/VOLU ME] IN SERUM OR PLASMA 0.4 mg/dL 0.2 - 1.2 07/06 Specimen Type: SERUM No comment entered. Ordering Provider: OPAL RAZO Report Released Date/Time: Jul 01, 2024 03:56 PM Reporting Lab: [facility] [place] [facility] [address] [facility] [address] Performing Lab: [facility] [place] [facility] [address] [facility] [address] [facility] [place] [facility] BASIC METABOLI C PANEL (non-fas ting) UREA NITROGEN [MASS/VOLU ME] IN SERUM OR PLASMA 19 mg/dL 7 - 25 07/06 Specimen Type: SERUM No comment entered. Ordering Provider: OPAL RAZO Report Released Date/Time: Jul 01, 2024 03:56 PM Reporting Lab: [facility] [place] [facility] [address] [facility] [address] Performing Lab: [facility] [place] [address] [address] [facility] [place] [facility] BASIC METABOLI C PANEL (non-fas ting) GLUCOSE [MASS/VOLU ME] IN SERUM OR PLASMA 90 mg/dL 65 - 100 07/06 Specimen Type: SERUM No comment entered. Ordering Provider: OPAL RAZO Report Released Date/Time: Jul 01, 2024 03:56 PM Reporting Lab: [facility] [place] [facility] [address] [facility] [address] Performing Lab: [facility] [place] [address] [address] [facility] [place] [facility] BASIC METABOLI C PANEL (non-fas ting) SODIUM [MOLES/VOL UME] IN SERUM OR PLASMA 139 mmol/L 135 - 145 07/06 Specimen Type: SERUM No comment entered. Ordering Provider: OPAL RAZO Report Released Date/Time: Jul 01, 2024 03:56 PM Reporting Lab: [facility] [place] [facility] [address] [facility] [address] Performing Lab: [facility] [place] [address] [address] [facility] [place] [facility] BASIC METABOLI C PANEL (non-fas ting) POTASSIUM [MOLES/VOL UME] IN SERUM OR PLASMA 4.8 mmol/L 3.5 - 5.0 07/06 Specimen Type: SERUM No comment entered. Ordering Provider: OPAL RAZO Report Released Date/Time: Jul 01, 2024 03:56 PM Reporting Lab: [facility]RDEKAL[facility]TRN [facility] [address] Performing Lab: [facility]RL WSTRN [facility] [address] [facility]ITALR[facility]ARC[facility]OSPITALN [facility] BASIC METABOLI C PANEL (non-fas ting) CHLORIDE [MOLES/VOL UME] IN SERUM OR PLASMA 104 mmol/L 100 - 110 07/06 Specimen Type: SERUM No comment entered. Ordering Provider: OPAL RAZO Report Released Date/Time: Jul 01, 2024 03:56 PM Reporting Lab: [facility] TRN [facility] [address] Performing Lab: [facility] W[facility]N [facility] [address] [facility]ITALR[facility]ARC[facility]OSPITALN [facility] BASIC METABOLI C PANEL (non-fas ting) CARBON DIOXIDE, TOTAL [MOLES/VOL UME] IN SERUM OR PLASMA 26 meq/L 20 - 30 07/06 Specimen Type: SERUM No comment entered. Ordering Provider: OPAL RAZO Report Released Date/Time: Jul 01, 2024 03:56 PM Reporting Lab: [facility] [place] [address] Performing Lab: [facility]RL TRN [facility] [address] [facility]ITALR[facility]ITALN [facility] BASIC METABOLI C PANEL (non-fas ting) CREATININE [MASS/VOLU ME] IN SERUM OR PLASMA 1.04 mg/dL 0.50 - 1.40 07/06 Specimen Type: SERUM No comment entered. Ordering Provider: OPAL RAZO Report Released Date/Time: Jul 01, 2024 03:56 PM Reporting Lab: [facility] [place] [facility] [address] [facility] [address] Performing Lab: [facility] [place] [facility] [address] [facility] [address] [facility] [place] [facility] BASIC METABOLI C PANEL (non-fas ting) GLOMERULAR FILTRATION RATE/1.73 SQ M.PREDICTE D [VOLUME RATE/AREA] IN SERUM, PLASMA OR BLOOD BY CREATININE -BASED FORMULA (CKD-EPI 2020) 87 mL/min 60 07/06 Specimen Type: SERUM No comment entered. Ordering Provider: OPAL RAZO Report Released Date/Time: Jul 01, 2024 03:56 PM Reporting Lab: [facility] [place] [facility] [address] [facility] [address] Performing Lab: [facility]ITAL[facility] [address] [address] [facility]RL TRN [place] [facility] CBC AND DIFF (AUTO) LEUKOCYTES [#/VOLUME] IN BLOOD BY AUTOMATED COUNT 8.69 10*3/uL 4.50 - 11.00 07/06 Specimen Type: BLOOD No comment entered. Ordering Provider: OPAL RAZO Report Released Date/Time: Jul 01, 2024 03:56 PM Reporting Lab: [facility] [place] [address] [address] Performing Lab: [facility] [address] [facility] [address] [facility] [place] [facility] CBC AND DIFF (AUTO) ERYTHROCYT ES [#/VOLUME] IN BLOOD BY AUTOMATED COUNT 5.01 10*6/uL 4.23 - 5.66 07/06 Specimen Type: BLOOD No comment entered. Ordering Provider: OPAL RAZO Report Released Date/Time: Jul 01, 2024 03:56 PM Reporting Lab[facility] [address] [address] Performing Lab: [facility] [address] [address] [facility] [place] [facility] CBC AND DIFF (AUTO) HEMOGLOBIN [MASS/VOLU ME] IN BLOOD 16.3 g/dL 12.8 - 17 07/06 Specimen Type: BLOOD No comment entered. Ordering Provider: OPAL RAZO Report Released Date/Time: Jul 01, 2024 03:56 PM Reporting Lab: [facility] [place] [facility] [address] [facility] [address] Performing Lab: [facility] [place] [facility] [address] [facility] [phone] [facility] CBC AND DIFF (AUTO) HEMATOCRIT [VOLUME FRACTION] OF BLOOD BY AUTOMATED COUNT 47.3 39.2 - 50.4 07/06 Specimen Type: BLOOD No comment entered. Ordering Provider: OPAL RAZO Report Released Date/Time: Jul 01, 2024 03:56 PM Reporting Lab: [facility] [place] [address] [address] Performing Lab: [facility] [place] [facility] [address] [facility] [address] [facility] CBC AND DIFF (AUTO) MCV [ENTITIC VOLUME] BY AUTOMATED COUNT 94.4 fL 82 - 99 07/06 Specimen Type: BLOOD No comment entered. Ordering Provider: OPAL RAZO Report Released Date/Time: Jul 01, 2024 03:56 PM Reporting Lab: [facility] [place] [facility] [address] [facility] [address] Performing Lab: [facility] [place] [address] [facility] [address] [facility] CBC AND DIFF (AUTO) MCHC [MASS/VOLU ME] BY AUTOMATED COUNT 34.5 g/dL 30.8 - 35.1 07/06 Specimen Type: BLOOD No comment entered. Ordering Provider: OPAL RAZO Report Released Date/Time: Jul 01, 2024 03:56 PM Reporting Lab: [facility] [place] [facility] [address] [facility] [address] Performing Lab: [facility] [place] [facility] [address] [facility] [address] [facility] CBC AND DIFF (AUTO) PLATELETS [#/VOLUME] IN BLOOD BY AUTOMATED COUNT 282 10*3/uL 140 - 360 07/06 Specimen Type: BLOOD No comment entered. Ordering Provider: OPAL RAZO Report Released Date/Time: Jul 01, 2024 03:56 PM Reporting Lab: [facility] [place] [facility] [address] [facility] [address] Performing Lab: [facility] [place] [facility] [address] [facility] [address] [facility] [place] [facility] CBC AND DIFF (AUTO) ERYTHROCYT E DISTRIBUTI ON WIDTH [RATIO] BY AUTOMATED COUNT 12.7 12.0 - 16.0 07/06 Specimen Type: BLOOD No comment entered. Ordering Provider: OPAL RAZO Report Released Date/Time: Jul 01, 2024 03:56 PM Reporting Lab: [facility] [place] [facility] [address] [facility] [address] Performing Lab: [facility] [place] [facility] [address] [facility] [address] [facility] [place] [facility] CBC AND DIFF (AUTO) MONOCYTES [#/VOLUME] IN BLOOD BY AUTOMATED COUNT 0.49 10*3/uL 0.30 - 1.10 07/06 Specimen Type: BLOOD No comment entered. Ordering Provider: OPAL RAZO Report Released Date/Time: Jul 01, 2024 03:56 PM Reporting Lab: [facility] [place] [facility] [address] [facility] [address] Performing Lab: [facility] [place] [facility] [address] [facility] [address] [facility] CBC AND DIFF (AUTO) MCH [ENTITIC MASS] BY AUTOMATED COUNT 32.5 pg 26.2 - 32.6 07/06 Specimen Type: BLOOD No comment entered. Ordering Provider: OPAL RAZO Report Released Date/Time: Jul 01, 2024 03:56 PM Reporting Lab: [facility] [place] [facility] [address] [facility] [address] Performing Lab: [facility] [place] [facility] [address] [facility] [address] [facility] CBC AND DIFF (AUTO) NEUTROPHIL S/100 LEUKOCYTES IN BLOOD BY AUTOMATED COUNT 70.3 43.7 - 75.8 07/06 Specimen Type: BLOOD No comment entered. Ordering Provider: OPAL RAZO Report Released Date/Time: Jul 01, 2024 03:56 PM Reporting Lab: [facility] [place] [facility] [address] [facility] [address] Performing Lab: [facility] [place] [facility] [address] [facility] [address] [facility] CBC AND DIFF (AUTO) LYMPHOCYTE S/100 LEUKOCYTES IN BLOOD BY AUTOMATED COUNT 22.3 14.0 - 42.3 07/06 Specimen Type: BLOOD No comment entered. Ordering Provider: OPAL RAZO Report Released Date/Time: Jul 01, 2024 03:56 PM Reporting Lab: [facility] [place] [facility] [address] [facility] [address] Performing Lab: [facility] [place] [facility] [address] [facility] [address] [facility] CBC AND DIFF (AUTO) MONOCYTES/ 100 LEUKOCYTES IN BLOOD BY AUTOMATED COUNT 5.6 5.1 - 13.7 07/06 Specimen Type: BLOOD No comment entered. Ordering Provider: OPAL RAZO Report Released Date/Time: Jul 01, 2024 03:56 PM Reporting Lab: [facility] [place] [facility] [address] [facility] [address] Performing Lab: [facility] [place] [facility] [address] [facility] [address] [facility] CBC AND DIFF (AUTO) EOSINOPHIL S/100 LEUKOCYTES IN BLOOD BY AUTOMATED COUNT 0.6 0.4 - 6.8 07/06 Specimen Type: BLOOD No comment entered. Ordering Provider: OPAL RAZO Report Released Date/Time: Jul 01, 2024 03:56 PM Reporting Lab: [facility] [place] [address] [address] Performing Lab: [facility] [place] [address] [address] [facility] [place] [facility] CBC AND DIFF (AUTO) BASOPHILS/ 100 LEUKOCYTES IN BLOOD BY AUTOMATED COUNT 0.7 0.1 - 2.0 07/06 Specimen Type: BLOOD No comment entered. Ordering Provider: OPAL RAZO Report Released Date/Time: Jul 01, 2024 03:56 PM Reporting Lab: [facility] [place] [address] [address] Performing Lab: [facility] [place] [address] [address] [facility] [place] [facility] CBC AND DIFF (AUTO) NEUTROPHIL S [#/VOLUME] IN BLOOD BY AUTOMATED COUNT 6.11 10*3/uL 2.20 - 7.60 07/06 Specimen Type: BLOOD No comment entered. Ordering Provider: OPAL RAZO Report Released Date/Time: Jul 01, 2024 03:56 PM Reporting Lab: [facility] [place] [address] [address] Performing Lab: [facility] [place] [address] [address] [facility] [place] [facility] CBC AND DIFF (AUTO) LYMPHOCYTE S [#/VOLUME] IN BLOOD BY AUTOMATED COUNT 1.94 10*3/uL 1.00 - 3.20 07/06 Specimen Type: BLOOD No comment entered. Ordering Provider: OPAL RAZO Report Released Date/Time: Jul 01, 2024 03:56 PM Reporting Lab: [facility] [place] [address] [place] [address] Performing Lab: [facility] [place] [facility] [address] [facility] [address] [facility] CBC AND DIFF (AUTO) EOSINOPHIL S [#/VOLUME] IN BLOOD BY AUTOMATED COUNT 0.05 10*3/uL 0.03 - 0.44 07/06 Specimen Type: BLOOD No comment entered. Ordering Provider: OPAL RAZO Report Released Date/Time: Jul 01, 2024 03:56 PM Reporting Lab: [facility] [place] [address] [address] Performing Lab: [facility] [place] [address] [address] [facility] CBC AND DIFF (AUTO) BASOPHILS [#/VOLUME] IN BLOOD BY AUTOMATED COUNT 0.06 10*3/uL 0.01 - 0.13 07/06 Specimen Type: BLOOD No comment entered. Ordering Provider: OPAL RAZO Report Released Date/Time: Jul 01, 2024 03:56 PM Reporting Lab: [facility] [place] [address] [address] Performing Lab: [facility] [place] [address] [address] [facility] CBC AND DIFF (AUTO) IMMATURE GRANULOCYT ES/100 LEUKOCYTES IN BLOOD BY AUTOMATED COUNT 0.5 0.0 - 0.7 07/06 Specimen Type: BLOOD No comment entered. Ordering Provider: OPAL RAZO Report Released Date/Time: Jul 01, 2024 03:56 PM Reporting Lab: [facility] [place] [address] [address] Performing Lab: [facility] [place] [address] [address] [facility] [facility] CBC AND DIFF (AUTO) IMMATURE GRANULOCYT ES [#/VOLUME] IN BLOOD 0.04 10*3/uL 0.00 - 0.06 07/06 Specimen Type: BLOOD No comment entered. Ordering Provider: OPAL RAZO Report Released Date/Time: Jul 01, 2024 03:56 PM Reporting Lab: [facility] [address] [address] Performing Lab: [facility] [address] [address] [facility] CBC AND DIFF (AUTO) NRBC % 0.0 0.0 - 0.0 07/06 Specimen Type: BLOOD No comment entered. Ordering Provider: OPAL RAZO Report Released Date/Time: Jul 01, 2024 03:56 PM Reporting Lab: [facility] [address] [address] Performing Lab: [address] [phone] [place] [address] CBC AND DIFF (AUTO) NRBC, ABS 0.00 10*3/uL 0.00 - 0.00 07/06 Specimen Type: BLOOD No comment entered. Ordering Provider: OPAL RAZO Report Released Date/Time: Jul 01, 2024 03:56 PM Reporting Lab: [facility] [address] [address] Performing Lab: [facility] [address] [address] [place] [address] T-SPOT TB PANEL MYCOBACTER IUM TUBERCULOS IS [...] additional information , please refer to http://educ atThimble Bioelectronics.TruVitals/faq/FA Q215 (This link is being provided for information al/ educational purposes only.) Test Performed by [employer], Agrar33 [facility], [address] [place] [address] Mal Freeman M.D., Ph.D., Director of Laboratorie s , CLIA [id number] TEST PERFORMED AT: , Ordering Provider: OPAL RAZO Report Released Date/Time: Jul 10, 2023 10:22 AM Reporting Lab: [facility] [address] [facility] [address] Performing Lab: [facility] [address] [address] [facility] T-SPOT TB PANEL MYCOBACTER IUM TUBERCULOS IS [...] For additional information , please refer to http://Darberry/faq/FA Q215 (This link is being provided for information al/ educational purposes only.) Test Performed by Total Communicator SolutionsSelect [facility], Agrar33 [facility], [address] [place] [address] Mal Freeman M.D., Ph.D., Director of Laboratorie s , CLIA [id number] TEST PERFORMED AT: , Ordering Provider: OPAL RAZO Report Released Date/Time: Jul 10, 2023 10:22 AM Reporting Lab: [facility] [address] [facility] [address] Performing Lab: [facility] [address] [address] [facility] T-SPOT TB PANEL MYCOBACTER IUM TUBERCULOS IS [...] additional information , please refer to http://educ Capillary Technologies .Clean Harbors/faq/FA Q215 (This link is being provided for information al/ educational purposes only.) Test Performed by [employer], [address] [place] [address] Mal Freeman M.D., Ph.D., Director of Laboratorie s , CLIA [id number] TEST PERFORMED AT: , Ordering Provider: OPAL RAZO Report Released Date/Time: Jul 10, 2023 10:22 AM Reporting Lab: [facility] [address] [facility] [address] Performing Lab: [facility] [address] [address] [facility] T-SPOT TB PANEL MITOGEN STIMULATED GAMMA INTERFERON [...] additional information , please refer to http://educ ation.TruVitals/faq/FA Q215 (This link is being provided for information al/ educational purposes only.) Test Performed by [employer] Communicator SolutionsMaril[employer], [address] [place] [address] Mal Fremean M.D., Ph.D., Director of Laboratorie s , CLIA [id number] TEST PERFORMED AT: , Ordering Provider: OPAL RAZO Report Released Date/Time: Jul 10, 2023 10:22 AM Reporting Lab: [facility] [address] [facility] [address] Performing Lab: [facility] [address] [address] [facility] T-SPOT TB PANEL GAMMA INTERFERON NEGATIVE CONTROL [...] additional information , please refer to http://educ ation.wali .com/faq/FA Q215 (This link is being provided for information al/ educational purposes only.) Test Performed by Total Communicator SolutionsMariluz, Agrar33 [facility], [address] [place] [address] Mal Freeman M.D., Ph.D., Director of LaboratorPlaylore s , CLIA [id number] TEST PERFORMED AT: , Ordering Provider: OPAL RAZO Report Released Date/Time: Jul 10, 2023 10:22 AM Reporting Lab: [facility] [address] [facility] [address] Performing Lab: [facility] [place] [facility] [address] [address] [facility] [facility] LIVER FUNCTION PROTEIN [MASS/VOLU ME] IN SERUM OR PLASMA 6.7 g/dL 6.0 - 8.3 03/31 Specimen Type: SERUM No comment entered. Ordering Provider: JULES PEREZ Report Released Date/Time: Mar 30, 2023 12:31 PM Reporting Lab: [facility] [place] [facility] [address] [facility] [address] Performing Lab: [facility] [address] [facility] [address] [facility] LIVER FUNCTION ALBUMIN [MASS/VOLU ME] IN SERUM OR PLASMA 4.1 g/dL 3.5 - 5.0 03/31 Specimen Type: SERUM No comment entered. Ordering Provider: JULES PEREZ Report Released Date/Time: Mar 30, 2023 12:31 PM Reporting Lab: [facility] [place] [facility] [address] [facility] [address] Performing Lab: [facility]ITAL[facility] [address] [facility] [address] [facility] LIVER FUNCTION ALKALINE PHOSPHATAS E [ENZYMATIC ACTIVITY/V OLUME] IN SERUM OR PLASMA 72 U/L 40 - 150 03/31 Specimen Type: SERUM No comment entered. Ordering Provider: JULES PEREZ Report Released Date/Time: Mar 30, 2023 12:31 PM Reporting Lab: [facility] [place] [facility] [address] [facility] [address] Performing Lab: [facility]ITAL[facility]ETS [facility] [address] [facility] [address] [facility]ITALUSE [facility] LIVER FUNCTION ASPARTATE AMINOTRANS FERASE [ENZYMATIC ACTIVITY/V OLUME] IN SERUM OR PLASMA 11 U/L 5 - 34 03/31 Specimen Type: SERUM No comment entered. Ordering Provider: JULES PEREZ Report Released Date/Time: Mar 30, 2023 12:31 PM Reporting Lab: [address] [address] Performing Lab: [address] [address] [facility] LIVER FUNCTION ALANINE AMINOTRANS FERASE [ENZYMATIC ACTIVITY/V OLUME] IN SERUM OR PLASMA 19 U/L 03/31 Specimen Type: SERUM No comment entered. Ordering Provider: JULES PEREZ Report Released Date/Time: Mar 30, 2023 12:31 PM Reporting Lab: [address] [address] Performing Lab: [address] [address] [facility] LIVER FUNCTION BILIRUBIN. TOTAL [MASS/VOLU ME] IN SERUM OR PLASMA 0.4 mg/dL 0.2 - 1.2 03/31 Specimen Type: SERUM No comment entered. Ordering Provider: JULES PEREZ Report Released Date/Time: Mar 30, 2023 12:31 PM Reporting Lab: [address] [address] Performing Lab: [address] [address] [facility] AMPHETAM SHERIE SCREEN PANEL AMPHETAMIN ES [PRESENCE] [...] Mar 26, 2023 08:40 AM Reporting Lab: [address] [address] Performing Lab: [address] [address] [facility] AMPHETAM SHERIE SCREEN PANEL PH OF URINE [...] Mar 26, 2023 08:40 AM Reporting Lab: [address] [address] Performing Lab: [address] [address] [facility] AMPHETAM SHERIE SCREEN PANEL CREATININE [MASS/VOLU ME] [...] Mar 26, 2023 08:40 AM Reporting Lab: [address] [address] Performing Lab: [address] [address] [facility] AMPHETAM SHERIE SCREEN PANEL SPECIFIC GRAVITY OF [...] Mar 26, 2023 08:40 AM Reporting Lab: [facility] [place] [address] [address] Performing Lab: [facility]N [facility] [address] [facility] MASSUSE [facility] BENZODIA ZEPINES SCREEN PANEL BENZODIAZE PINES [...] Mar 26, 2023 08:40 AM Reporting Lab: [facility]N [facility] [address] Performing Lab: [address] [address] [facility] BENZODIA ZEPINES SCREEN PANEL PH OF URINE [...] Mar 26, 2023 08:40 AM Reporting Lab: [facility] [place] [facility] [address] [facility] [address] Performing Lab: [facility]PITALRDEKALB REGIONAL MEDICAL CENTERTRN [facility]PITALUSETS [facility] [address] [facility] [address] [facility]N [facility]ITAL[facility] BENZODIA ZEPINES SCREEN PANEL CREATININE [MASS/VOLU [...] Mar 26, 2023 08:40 AM Reporting Lab: [facility] [place] [place] [address] [address] Performing Lab: [facility] TRN [facility]ITAL[facility]ETS [address] [address] [facility] BENZODIA ZEPINES SCREEN PANEL SPECIFIC GRAVITY [...] Mar 26, 2023 08:40 AM Reporting Lab: [facility] [place] [facility] [address] [facility] [address] Performing Lab: [facility]PITALRDEKALB [facility]IONAL MEDICAL CENTERTRN [facility] [address] [facility]N [facility]ITALUSE [facility] Vital Signs Combined list of inpatient and outpatient Vital Signs from Department of Defense and Veterans Affairs, ranging from 12 months to all on record, depending upon the facility. Vital Sign Value Date Comments Source SYSTOLIC BLOOD PRESSURE 130 11/01/2024 08:24:34 [facility] [place] [facility] DIASTOLIC BLOOD PRESSURE 70 11/01/2024 08:24:34 [facility] [place] [facility] PAIN 0 11/01/2024 08:24:34 [facility] [place] [facility] SYSTOLIC BLOOD PRESSURE 145 09/20/2024 15:10:05 [facility] [place] [facility] DIASTOLIC BLOOD PRESSURE 90 09/20/2024 15:10:05 [facility] [place] [facility] PULSE OXIMETRY 98 09/20/2024 15:10:05 [facility] [place] [facility] PULSE 98 09/20/2024 15:10:05 [facility] [place] [facility] RESPIRATION 18 09/20/2024 15:10:05 [facility] [place] [facility] SYSTOLIC BLOOD PRESSURE 148 08/10/2024 10:08:37 [facility] [place] [facility] DIASTOLIC BLOOD PRESSURE 76 08/10/2024 10:08:37 [facility] [place] [facility] PULSE OXIMETRY 97 08/10/2024 10:08:37 [facility] [place] [facility] TEMPERATURE 98.4 08/10/2024 10:08:37 [facility] [...] from Department of Veterans Affairs facilities going backup to the last 18 months, not all VA inpatient encounters are included; 2) Encounters from the Department of Defense facilities going backup to 280 months. Location Location Details Encounter Type Encounter Number Reason For Visit Attending Provider ADM Date DC Date Status Disposition Source [facility] [place]) OUTPATIENT [id number] SUITABI DERICK MILLER T 08/30 Released w/o Limitations [facility] [id number] ad needs ref to pulm for asthma testing TAMI FRIAS 09/04 Released w/o Limitations [facility](S ub[facility] Primary [facility]) [facility]) OUTPATIENT [id number] pulmona ry consult per DERICK Cat T 09/05 Released w/o Limitations [facility](S ub[facility] Primary Care) [facility](Sub ase Immed Care) OUTPATIENT [id number] bp check ATNVI VINSON 09/27 Released w/o Limitations [facility] TELE CONSULT [id number] PT require s consult to pulmono logy for asthma evaluat DERICK Trammell T 10/01 [facility](S ubase Immed Care) [facility](Joellen merton Pulmonolo gy) OUTPATIENT [id number] wheezin g [as a symptom ] NIDIA FINLEY S 10/29 Released with Work/Duty Limitations [facility](B remerto n Pulmono logy) [facility]) OUTPATIENT [id number] 30YO/FU ON ASTHMA DERICK CHAPMAN T 11/04 Released w/o Limitations [facility](Z ZFamily Medicin e) [facility]) OUTPATIENT [id number] AD Rash on back x 1-2mo VALDO ALTMAN M 02/19 Released w/o Limitations [facility](Z ZFamily Medicin e) [facility](B Chiroprac tic Cln) OUTPATIENT [id number] BACKACH E BHATTI, SPRING N 02/28 Released w/o Limitations [facility](B Chiropr actic Cln) [facility](B Chiroprac tic Cln) OUTPATIENT [id number] f/u upper back pain BHATTI, SPRING N 03/03 Released w/o Limitations [facility](B Chiropr actic Cln) [facility](B Chiroprac tic Cln) OUTPATIENT [id number] f/u upper back pain BHATTI, SPRING N 03/05 Released w/o Limitations [facility](B Chiropr actic Cln) [facility](B Chiroprac tic Cln) OUTPATIENT [id number] f.u per pt BHATTI, SPRING N 03/14 Released w/o Limitations [facility](B Chiropr actic Cln) [facility](B Chiroprac tic Cln) OUTPATIENT [id number] f.u back per pt BHATTI, SPRING N 03/17 Released w/o Limitations [facility](B Chiropr actic Cln) [facility](B Chiroprac tic Cln) OUTPATIENT [id number] LBP BHATTI, SPRING N 03/19 Released w/o Limitations [facility](B Chiropr actic Cln) [facility](Sub ase Patient Ed) OUTPATIENT [id number] PPD intervi ew BYRON DAO S 04/22 Released w/o Limitations [facility](S ubase Patient Ed) [facility](Sub ase Immunizat ions) OUTPATIENT [id number] typhoid BYRON DAO S 04/22 Released w/o Limitations [facility](S ubase Immuniz ations) [facility](Sub ase Immunizat ions) OUTPATIENT [id number] hep b LEI MATTHEWSW S 05/08 Released w/o Limitations [facility](S ubase Immuniz ations) [facility](Sub ase Immunizat ions) OUTPATIENT [id number] HBV#2 BYRON DAO S 12/03 Released w/o Limitations [facility](S ubase Immuniz ations) [facility](Sub ase Immunizat ions) OUTPATIENT [id number] TD BERYL AMADOR 12/04 Released w/o Limitations [facility](S ubase Immuniz ations) [facility](Sub ase [facility]) OUTPATIENT [id number] AD Eye check KEN GARCIA 01/08 Released w/o Limitations [facility](S ubase Optomet ry Clinic) [facility]) OUTPATIENT [id number] Annual Follow- up for TB Screeni CHARISSA Arizmendi 02/23 Released w/o Limitations [facility](B remerto n [facility]) [facility](Sub ase Occupatio nal Health - [facility]) OUTPATIENT [id number] KEMI Taylor 02/23 Released w/o Limitations [facility] AMC-For t Ignacio(S ubase Occupat ional Health - EC) [facility](SD Nutrition ) OUTPATIENT [id number] PAOLAJojo SRIVASTAVAJANKISAW VALERO 03/19 Released w/o Limitations [facility](S D Nutriti on) [facility] HC PRO PHONE CALL 5-10 MIN [id number] Diagnos is: ICD-10- CM Z65.3 Problem s related to other legal circums tances JENNIFER,HEIDI NA E 05/16 [facility] OFFICE O/P EST SF 10-19 MIN [id number] Diagnos is: ICD-10- CM F10.24 Alcohol depende nce with alcohol -induce d mood disorde Yanni Jarvis MD 05/16 [facility] Outpatient Encounter [id number] 05/21 [facility] CASE MANAGEMENT [id number] Diagnos is: ICD-10- CM Z59.01 Senior Living ed FOX Dietrich 05/29 [facility] Out[facility] Encounter [id number] HELEN LEONARD 06/11 [facility] Out[facility] Encounter [id number] 06/13 [facility] CASE MANAGEMENT [id number] Diagnos is: ICD-10- CM Z65.3 Problem s related to other legal circums tances JENNIFER,HEIDI NA E 06/18 [facility] Out[facility] Encounter [id number] 06/19 [facility] OFFICE O/P EST MOD 30-39 MIN [id number] Diagnos is: ICD-10- CM J45.998 Other asthma IRAIDA LOWRY 06/19 [facility] Out[facility] Encounter [id number] 06/20 [facility] Out[facility] Encounter [id number] 06/22 [facility] Out[facility] Encounter [id number] 07/07 [facility] Out[facility] Encounter [id number] 07/08 [facility] CASE MANAGEMENT [id number] Diagnos is: ICD-10- CM F25.0 Schizoa ffectiv e disorde r, bipolar type FOX JOYCE 07/09 [facility] OFFICE O/P EST MOD 30-39 MIN [id number] Diagnos is: ICD-10- CM M25.562 Pain in left knee DOPAL PERSON 07/10 [facility] EYE EXAM NEW PATIENT [id number] Diagnos is: ICD-10- CM H25.013 Cortica l age-rel ated catarac t, bilater al NANCY,IN JG 07/10 [facility] Out[facility] Encounter [id number] 07/10 [facility] FIT SPECTACLES MONOFOCAL [id number] Diagnos is: ICD-10- CM Z46.0 Encount er for fit/adj st of spectac les and contact lenses CARYL MARCUS 07/11 [facility] OFFICE O/P EST LOW 20-29 MIN [id number] Diagnos is: ICD-10- CM F25.0 Schizoa ffectiv e disorde r, bipolar type Yanni LONG MD 07/17 [facility] Out[facility] Encounter [id number] 07/19 [facility] Outpatient Encounter [id number] 07/21 [facility] Out[facility] Encounter [id number] 08/12 [facility] CASE MANAGEMENT [id number] Diagnos is: ICD-10- CM Z65.3 Problem s related to other legal circums tances HEIDI RODRIGUEZ 09/10 [facility] PSYTX W PT 30 MINUTES [id number] Diagnos is: ICD-10- CM F25.0 Schizoa ffectiv e disorde r, bipolar type KIANA GARCIA ON A 09/11 [facility] Out[facility] Encounter [id number] 09/26 [facility] PSYTX W PT 30 MINUTES [id number] Diagnos is: ICD-10- CM F25.0 Schizoa ffectiv e disorde r, bipolar type KIANA GARCIA ON A 11/19 [facility] OFFICE O/P EST LOW 20 MIN [id number] Diagnos is: ICD-10- CM F25.0 Schizoa ffectiv e disorde r, bipolar type Yanni LONG MD 11/19 [facility] Out[facility] Encounter [id number] 11/19 [facility] Out[facility] Encounter [id number] 12/02 [facility] Out[facility] Encounter [id number] 01/01 [facility] Out[facility] Encounter [id number] 01/01 [facility] OFF/OP EST MAY X REQ PHY/QHP [id number] Diagnos is: ICD-10- CM F10.24 Alcohol depende nce with alcohol -induce d mood disorde r Meredith SCOTT ATRICIA A 04/08 [facility] OFFICE O/P EST MOD 30 MIN [id number] Diagnos is: ICD-10- CM I10 Essenti al (primar y) hyperte nsion DFerminTSERING HUGHESOPAL Julianna 06/09 [facility] Out[facility] Encounter [id number] 06/10 [facility] OFFICE O/P EST LOW 20 MIN [id number] Diagnos is: ICD-10- CM F25.0 Schizoa ffectiv e disorde r, bipolar type Yanni LONG MD 06/17 [facility] Out[facility] Encounter [id number] Brian YANCEY 07/01 [facility] Out[facility] Encounter [id number] 07/01 [facility] OFFICE O/P NEW MOD 45 MIN [id number] Diagnos is: ICD-10- CM M54.59 Other low back pain MITRA BRAR RA 07/06 [facility] ORTHC/PROS TC MGMT SBSQ ENC [id number] Diagnos is: ICD-10- CM M25.562 Pain in left knee Brian SHAFFER 07/06 [facility] Out[facility] Encounter [id number]/06 [facility] HC PRO PHONE CALL 5-10 MIN [id number] 1. 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 YAJAIRA Zuniga 07/06 [facility] Out[facility] Encounter [id number] 1.07/13 [facility] Encounter [id number] 1.07/14 [facility] OFFICE O/P EST MOD 30 MIN [id number] Diagnos is: ICD-10- CM I10 Essenti al (primar y) hyperte nsion OPAL ANAYA 07/14 [facility] Out[facility] Encounter [id number] 1.07/22 [facility] Encounter [id number] 1.07/26 [facility] Out[facility] Encounter [id number]/27 [facility] OFFICE O/P EST LOW 20 MIN [id number] Diagnos is: ICD-10- CM F25.0 Schizoa ffectiv e disorde r, bipolar type Yanni LONG MD 07/28 [facility] Out[facility] Encounter [id number] 07/28 [facility] Out[facility] Encounter [id number] 07/30 [facility] Out[facility] Encounter [id number] 08/09 [facility] OFFICE O/P NEW SF 15 MIN [id number] 1. Diagnos is: ICD-10- CM L60.3 Nail dystrop hy FOSTER,FRANCISCO RLES D 08/10 [facility] Out[facility] Encounter [id number] 08/23 [facility] Outpatient Encounter [id number] 08/26 [facility] Outpatient Encounter [id number] 08/27 [facility] Out[facility] Encounter [id number] 09/03 [facility] OFFICE O/P EST MOD 30 MIN [id number] Diagnos is: ICD-10- CM I10 Essenti al (primar y) hyperte nsOPAL Martinez 09/20 [facility] HC PRO PHONE CALL 11-20 MIN [id number] Diagnos is: ICD-10- CM J45.998 Other asthma JARMOLOWIC SHAUN Levin 09/21 [facility] Out[facility] Encounter [id number] 09/23 [facility] Out[facility] Encounter [id number] 09/23 [facility] Out[facility] Encounter [id number] 10/05 [facility] Out[facility] Encounter [id number] 10/08 [facility] Out[facility] Encounter [id number] 10/15 [facility] OFFICE O/P NEW LOW 30 MIN [id number] Diagnos is: ICD-10- CM M25.562 Pain in left knee Jojo PABLO 11/01 [facility] Out[facility] Encounter [id number] 11/01 [facility] MANUAL THERAPY 1/> REGIONS [id number] Diagnos is: ICD-10- CM M54.59 Other low back pain MITRA BRAR RA 11/02 [facility] COMPRE OPH EXAM EST PT 1/> [id number] Diagnos is: ICD-10- CM H25.813 Combine d forms of age-rel ated catarac t, bilchasity al COLBY JUNG E 11/02 [facility] Out[facility] Encounter [id number] 11/03 [facility] Outpatient Encounter [id number] 11/03 [facility] PT EVAL MOD COMPLEX 30 MIN [id number] Diagnos is: ICD-10- CM M22.42 Chondro malacia patella e, left knee NIMISHA MOTT 11/04 [facility] Out[facility]counter [id number] 11/09 [facility] Out[facility] Encounter [id number] 11/11 [facility] Procedures Combined list of: 1) Procedures from Department of Veterans Affairs facilities going back up to thelast 18 months, not all [place] non-surgical procedures are included; 2) All procedures from the Department of Defense facilities. Procedure Procedure Type Code Date Perfomer Comments [facility] BEHAVIORAL HEALTH; SHORT-TERM RESIDENTIAL (NON-HOSPITAL RESIDENTIAL TREATMENT PROGRAM), WITHOUT ROOM AND BOARD, HEAD TRACK COACH 007 [facility] BEHAVIORAL HEALTH; SHORT-TERM RESIDENTIAL (NON-HOSPITAL RESIDENTIAL TREATMENT PROGRAM), WITHOUT ROOM AND BOARD, HEAD TRACK COACH [facility] INDIVIDUAL PSYCHOTHERAPY, INSIGHT ORIENTED, BEHAVIOR MODIFYING AND/OR SUPPORTIVE, IN AN OFFICE OR OUTPATIENT FACILITY, APPROXIMATELY 75 TO 80 MINUTES [id number] WITH THE PATIENT [facility] BEHAVIORAL HEALTH; SHORT-TERM RESIDENTIAL (NON-HOSPITAL RESIDENTIAL TREATMENT PROGRAM), WITHOUT ROOM AND BOARD, HEAD TRACK COACH 007 [facility] BEHAVIORAL HEALTH; SHORT-TERM RESIDENTIAL (NON-HOSPITAL RESIDENTIAL TREATMENT PROGRAM), WITHOUT ROOM AND BOARD, HEAD TRACK COACH 007 [facility]; SHORT-TERM RESIDENTIAL (NON-HOSPITAL RESIDENTIAL TREATMENT PROGRAM), WITHOUT ROOM AND BOARD, HEAD TRACK COACH 007 [facility] BEHAVIORAL HEALTH; SHORT-TERM RESIDENTIAL (NON-HOSPITAL RESIDENTIAL TREATMENT PROGRAM), WITHOUT ROOM AND BOARD, HEAD TRACK COACH [facility]; SHORT-TERM RESIDENTIAL (NON-HOSPITAL RESIDENTIAL TREATMENT PROGRAM), WITHOUT ROOM AND BOARD, HEAD TRACK COACH [facility]; SHORT-TERM RESIDENTIAL (NON-HOSPITAL RESIDENTIAL TREATMENT PROGRAM), WITHOUT ROOM AND BOARD, HEAD TRACK COACH [facility]; SHORT-TERM RESIDENTIAL (NON-HOSPITAL RESIDENTIAL TREATMENT PROGRAM), WITHOUT ROOM AND BOARD, HEAD TRACK COACH [facility]; SHORT-TERM RESIDENTIAL (NON-HOSPITAL RESIDENTIAL TREATMENT PROGRAM), WITHOUT ROOM AND BOARD, HEAD TRACK COACH [facility]; SHORT-TERM RESIDENTIAL (NON-HOSPITAL RESIDENTIAL TREATMENT PROGRAM), WITHOUT ROOM AND BOARD, HEAD TRACK COACH [facility]; SHORT-TERM RESIDENTIAL (NON-HOSPITAL RESIDENTIAL TREATMENT PROGRAM), WITHOUT ROOM AND BOARD, HEAD TRACK COACH [facility]; SHORT-TERM RESIDENTIAL (NON-HOSPITAL RESIDENTIAL TREATMENT PROGRAM), WITHOUT ROOM AND BOARD, HEAD TRACK COACH [facility]; SHORT-TERM RESIDENTIAL (NON-HOSPITAL RESIDENTIAL TREATMENT PROGRAM), WITHOUT ROOM AND BOARD, HEAD TRACK COACH [facility]; SHORT-TERM RESIDENTIAL (NON-HOSPITAL RESIDENTIAL TREATMENT PROGRAM), WITHOUT ROOM AND BOARD, HEAD TRACK COACH [facility]; SHORT-TERM RESIDENTIAL (NON-HOSPITAL RESIDENTIAL TREATMENT PROGRAM), WITHOUT ROOM AND BOARD, HEAD TRACK COACH [facility]; SHORT-TERM RESIDENTIAL (NON-HOSPITAL RESIDENTIAL TREATMENT PROGRAM), WITHOUT ROOM AND BOARD, HEAD TRACK COACH [facility]; SHORT-TERM RESIDENTIAL (NON-HOSPITAL RESIDENTIAL TREATMENT PROGRAM), WITHOUT ROOM AND BOARD, HEAD TRACK COACH [facility]; SHORT-TERM RESIDENTIAL (NON-HOSPITAL RESIDENTIAL TREATMENT PROGRAM), WITHOUT ROOM AND BOARD, HEAD TRACK COACH [facility]; SHORT-TERM RESIDENTIAL (NON-HOSPITAL RESIDENTIAL TREATMENT PROGRAM), WITHOUT ROOM AND BOARD, HEAD TRACK COACH [facility]; SHORT-TERM RESIDENTIAL (NON-HOSPITAL RESIDENTIAL TREATMENT PROGRAM), WITHOUT ROOM AND BOARD, HEAD TRACK COACH [facility] MEDICAL NUTRITION THERAPY; GROUP (2 OR MORE INDIVIDUAL(S)), EACH 30 MINUTES 007 [facility]; SHORT-TERM RESIDENTIAL (NON-HOSPITAL RESIDENTIAL TREATMENT PROGRAM), WITHOUT ROOM AND BOARD, HEAD TRACK COACH [facility] BEHAVIORAL HEALTH; SHORT-TERM RESIDENTIAL (NON-HOSPITAL RESIDENTIAL TREATMENT PROGRAM), WITHOUT ROOM AND BOARD, HEAD TRACK COACH [facility] PSYCHIATRIC DIAGNOSTIC INTERVIEW EXAMINATION [facility] BEHAVIORAL HEALTH; SHORT-TERM RESIDENTIAL (NON-HOSPITAL RESIDENTIAL TREATMENT PROGRAM), WITHOUT ROOM AND BOARD, HEAD TRACK COACH [facility] NONINVASIVE EAR OR PULSE OXIMETRY FOR OXYGEN SATURATION; SINGLE DETERMINATION [facility] EDUCATIONAL SUPPLIES, SUCH BOOKS, TAPES, AND PAMPHLETS, FOR THE PATIENT'S EDUCATION AT COST TO PHYSICIAN OR OTHER QUALIFIED HEALTH CLINICAL INTERVIEWER [facility] BEHAVIORAL HEALTH COUNSELING AND THERAPY, PER 15 MINUTES [facility] OPHTHALMOLOGICAL SERVICES: MEDICAL EXAMINATION AND EVALUATION, WITH INITIATION OR CONTINUATION OF DIAGNOSTIC AND TREATMENT PROGRAM; COMPREHENSIVE, ESTABLISHED PATIENT, 1 OR MORE VISITS [facility] TETANUS AND DIPHTHERIA TOXOIDS (TD) ADSORBED WHEN ADMINISTERED TO INDIVIDUALS 7 YEARS OR OLDER, FOR INTRAMUSCULAR USE [facility] HEPATITIS B VACCINE (HEPB), ADULT DOSAGE, 3 DOSE SCHEDULE, FOR INTRAMUSCULAR USE [facility] HEPATITIS B VACCINE (HEPB), ADULT DOSAGE, 3 DOSE SCHEDULE, FOR INTRAMUSCULAR USE [facility] TYPHOID VACCINE, CAPSULAR POLYSACCHARIDE (VICPS), FOR INTRAMUSCULAR USE [facility] APPLICATION OF A MODALITY TO 1 OR MORE AREAS; HOT OR COLD PACKS [facility] MANUAL THERAPY TECHNIQUES (EG, MOBILIZATION/ MANIPULATION, MANUAL LYMPHATIC DRAINAGE, MANUAL TRACTION), 1 OR MORE REGIONS, EACH 15 MINUTES [facility] APPLICATION OF A MODALITY TO 1 OR MORE AREAS; HOT OR COLD PACKS [facility] THERAPEUTIC PROCEDURE, 1 OR MORE AREAS, EACH 15 MINUTES; THERAPEUTIC EXERCISES TO DEVELOP STRENGTH AND ENDURANCE, RANGE OF MOTION AND FLEXIBILITY [facility] APPLICATION OF A MODALITY TO 1 OR MORE AREAS; ELECTRICAL STIMULATION (UNATTENDED) [facility] APPLICATION OF A MODALITY TO 1 OR MORE AREAS; HOT OR COLD PACKS [facility] OPHTHALMOLOGICAL SERVICES: MEDICAL EXAMINATION AND EVALUATION, WITH INITIATION OR CONTINUATION OF DIAGNOSTIC AND TREATMENT PROGRAM; INTERMEDIATE, ESTABLISHED PATIENT [facility] [employer] EVALUATION, [place] [address], WITH ADMINISTERED AGENTS (EG, ANTIGEN[S], COLD AIR, METHACHOLINE) [facility] ELECTROCARDIOGRAM, ROUTINE ECG WITH AT LEAST 12 LEADS; WITH INTERPRETATION AND REPORT [facility] ELECTROCARDIOGRAM, ROUTINE ECG WITH AT LEAST 12 LEADS; WITH INTERPRETATION AND REPORT [facility] OPHTHALMOLOGICAL SERVICES: MEDICAL EXAMINATION AND EVALUATION, WITH INITIATION OR CONTINUATION OF DIAGNOSTIC AND TREATMENT PROGRAM; INTERMEDIATE, ESTABLISHED PATIENT [facility] SPECIAL REPORTS SUCH INSURANCE FORMS, MORE THAN THE INFORMATION CONVEYED IN THE USUAL MEDICAL COMMUNICATIONS OR STANDARD REPORTING FORM [facility] FITTING OF SPECTACLES, EXCEPT FOR APHAKIA; BIFOCAL [facility] ALCOHOL AND/OR DRUG SERVICES; INTENSIVE OUTPATIENT (TX [employer] OPERATES >= 3 HRS/DAY & >= 3 DAYS/WK & IS BASED ON INDIVID TX PLAN),INCL ASSESS,BLOCK FEEDER;CRISI S INTERVENTN,& ACT THERAPIES/EDUC 002 [facility] AL[facility]HOL AND/OR DRUG SERVICES; INTENSIVE OUTPATIENT (TX [employer] OPERATES >= 3 HRS/DAY & >= 3 DAYS/WK & IS BASED ON INDIVID TX PLAN),INCL ASSESS,BLOCK FEEDER;CRISI S INTERVENTN,& ACT THERAPIES/EDUC 002 [facility] ALCOHOL AND/OR DRUG SERVICES; CASE MANAGEMENT [facility] AND/OR DRUG SERVICES; INTENSIVE OUTPATIENT ([place] PRGM OPERATES >= 3 HRS/DAY & >= 3 DAYS/WK & IS BASED ON INDIVID TX PLAN),INCL ASSESS,BLOCK FEEDER;CRISI S INTERVENTN,& ACT THERAPIES/EDUC 002 [facility] ALCOHOL AND/OR DRUG SERVICES; INTENSIVE OUTPATIENT (TX PRGM OPERATES >= 3 HRS/DAY & >= 3 DAYS/WK & IS BASED ON INDIVID TX PLAN),INCL ASSESS,BLOCK FEEDER;CRISI S INTERVENTN,& ACT THERAPIES/EDUC 002 [facility] ALCOHOL AND/OR DRUG SERVICES; INTENSIVE OUTPATIENT (TX PRGM OPERATES >= 3 HRS/DAY & >= 3 DAYS/WK & IS BASED ON INDIVID TX PLAN),INCL ASSESS,BLOCK FEEDER;CRISI S INTERVENTN,& ACT THERAPIES/EDUC 002 [facility] ALCOHOL AND/OR DRUG SERVICES; INTENSIVE OUTPATIENT (TX PRGM OPERATES >= 3 HRS/DAY & >= 3 DAYS/WK & IS BASED ON INDIVID TX PLAN),INCL ASSESS,BLOCK FEEDER;CRISI S INTERVENTN,& ACT THERAPIES/EDUC 002 [facility] ALCOHOL AND/OR DRUG SERVICES; CASE MANAGEMENT [facility] AND/OR DRUG SERVICES; INTENSIVE OUTPATIENT (TX PRGM OPERATES >= 3 HRS/DAY & >= 3 DAYS/WK & IS BASED ON INDIVID TX PLAN),INCL ASSESS,BLOCK FEEDER;CRISI S INTERVENTN,& ACT THERAPIES/EDUC 002 [facility] ALCOHOL AND/OR DRUG SERVICES; INTENSIVE OUTPATIENT (TX [employer] OPERATES >= 3 HRS/DAY & >= 3 DAYS/WK & IS BASED ON INDIVID TX PLAN),INCL ASSESS,BLOCK FEEDER;CRISI S INTERVENTN,& ACT THERAPIES/EDUC 002 [facility] ALCOHOL AND/OR DRUG SERVICES; INTENSIVE OUTPATIENT (TX [employer]GM OPERATES >= 3 HRS/DAY & >= 3 DAYS/WK & IS BASED ON INDIVID TX PLAN),INCL ASSESS,BLOCK FEEDER;CRISI S INTERVENTN,& ACT THERAPIES/EDUC 002 [facility] ALCOHOL AND/OR DRUG SERVICES; CASE MANAGEMENT [facility] AND/OR DRUG SERVICES; INTENSIVE OUTPATIENT (TX PRGM OPERATES >= 3 HRS/DAY & >= 3 DAYS/WK & IS BASED ON INDIVID TX PLAN),INCL ASSESS,BLOCK FEEDER;CRISI S INTERVENTN,& ACT THERAPIES/EDUC 002 [facility] ALCOHOL AND/OR DRUG SERVICES; INTENSIVE OUTPATIENT (TX PRGM OPERATES >= 3 HRS/DAY & >= 3 DAYS/WK & IS BASED ON INDIVID TX PLAN),INCL ASSESS,BLOCK FEEDER;CRISI S INTERVENTN,& ACT THERAPIES/EDUC 002 [facility] ALCOHOL AND/OR DRUG SERVICES; INTENSIVE OUTPATIENT (TX PRGM OPERATES >= 3 HRS/DAY & >= 3 DAYS/WK & IS BASED ON INDIVID TX PLAN),INCL ASSESS,BLOCK FEEDER;CRISI S INTERVENTN,& ACT THERAPIES/EDUC 002 [facility] ALCOHOL AND/OR DRUG SERVICES; INTENSIVE OUTPATIENT (TX PRGM OPERATES >= 3 HRS/DAY & >= 3 DAYS/WK & IS BASED ON INDIVID TX PLAN),INCL ASSESS,BLOCK FEEDER;CRISI S INTERVENTN,& ACT THERAPIES/EDUC 002 [facility] ALCOHOL AND/OR DRUG SERVICES; CASE MANAGEMENT 10/02/2 002 [facility] PSYCHIATRIC EVALUATION OF HOSPITAL RECORDS, OTHER PSYCHIATRIC REPORTS, PSYCHOMETRIC AND/OR PROJECTIVE TESTS, AND OTHER ACCUMULATED DATA FOR MEDICALDIAGNOSTIC PURPOSES [facility] ALCOHOL AND/OR DRUG SERVICES; INTENSIVE OUTPATIENT ([place] [employer] OPERATES >= 3 HRS/DAY & >= 3 DAYS/WK & IS BASED ON INDIVID TX PLAN),INCL ASSESS,BLOCK FEEDER;SHERIDAN Ramos INTERVENTN,& ACT THERAPIES/EDUC [facility] PSYCHIATRIC DIAGNOSTIC INTERVIEW EXAMINATION [facility] BEHAVIORAL HEALTH SCREENING TO DETERMINE ELIGIBILITY FOR ADMISSION TO TREATMENT PROGRAM [facility] OPHTHALMOLOGICAL SERVICES: MEDICAL EXAMINATION AND EVALUATION WITH INITIATION OF DIAGNOSTIC AND TREATMENT PROGRAM; INTERMEDIATE, NEW PATIENT [facility] Behavioral health; short-term residential (non-hospital residential treatment program), without room and board, operations recruiter 007 GOYO OZUNA [facility] Alcohol and/or drug services; group counseling by a clinician GOYO FRIAS Psychotherapy Individual Approximately 75-80 Minutes Psychotherapy Individual Approximately 75-80 Minutes [id number] GOYO OZUNA [facility] Behavioral health; short-term residential (non-hospital residential treatment program), without room and board, operations recruiter 007 GOYO OZUNA [facility] Alcohol and/or drug services; group counseling by a clinician GOYO FRIAS Psychotherapy Individual Approximately 45 Minutes Psychotherapy Individual Approximately 45 Minutes [id number] GOYO OZUNA [facility] Medical Nutrition Therapy Group (2 or More Individuals) Each 30 Minutes Medical Nutrition Therapy Group (2 or More Individuals) Each 30 Minutes [id number] SAW SHEARER [facility] Behavioral health; short-term residential (non-hospital residential treatment program), without room and board, operations recruiter 007 GOYO OZUNA [facility] Alcohol and/or drug services; group counseling by a clinician GOYO FRIAS [facility] Psychiatric Diagnostic Evaluation Comprehensive Examination Psychiatric Diagnostic Evaluation Comprehensive Examination [id number] GOYO OZUNA [facility] Psychiatric Diagnostic Evaluation Comprehensive Examination Psychiatric Diagnostic Evaluation Comprehensive Examination [id number] BRETT PRATER [facility] Venipuncture Venipuncture [id number] OMEGA NIEVES Breathalyzer For Blood Alcohol Content Breathalyzer For Blood Alcohol Content [id number] OMEGA NIEVES Physician Supervised Services Provision Of Educational Supplies Physician Supervised Services Provision Of Educational Supplies [id number] CHARISSA FLETCHER Behavioral health counseling and therapy, [...] Comprehensive Examination Psychiatric Diagnostic Evaluation Comprehensive Examination 05760 DAI MCDOWELL Spectacles Services Fitting Monofocal Except For Aphakia Spectacles Services Fitting Monofocal Except For Aphakia [id number] KEN GARCIA Determination Of Refractive State Determination Of Refractive State 32351 KEN GARCIA Ophthalmological Prior Patient Start Comprehensive Care Ophthalmological Prior Patient Start Comprehensive Care 248[address] KEN GARCIA Td Vaccine Seven Years Of Age And Above Td Vaccine Seven Years Of Age And Above 87999 DIAAN RACHEL Immunization Administration By Injection, One Vaccine Immunization Administration By Injection, One Vaccine 15879 DIANA RACHEL Hepatitis B Vaccine (Active) Adult Dosage 007 DIANA RACHEL Immunization Administration By Injection, One Vaccine Immunization Administration By Injection, One Vaccine 24390 DIANA RACHEL Immunization Administration By Injection, One Vaccine Immunization Administration By Injection, One Vaccine 71143 006 DIANA RACHEL Hepatitis B Vaccine (Active) Adult Dosage 006 DIANA RACHEL Immunization Administration By Injection, One Vaccine Immunization Administration By Injection, One Vaccine 24747 MILAGRO MARTELL [facility] Typhoid Vaccine Vi Capsular Polysaccharide, For Intramus Use Typhoid Vaccine Vi Capsular Polysaccharide, For Intramus Use 50357 MILAGRO MARTELL [facility] Chiropractic Manip Treatmt (CMT) Spinal One To Two Regions Chiropractic Manip Treatmt (CMT) Spinal One To Two Regions 92127 006 BHATTI, [place] N DoD Modalities Heat Hot Packs Modalities Heat Hot Packs 86907 006 BHATTI, [place] N cx, tx 20 mins DoD Mobilization Soft Ti ue Mobilization Soft Tissue 34266 BHATTI, [place] N pivot tx subocc. 8m DoD A isted Exercises For ROM Assisted [place]ercises [place] ROM 87490 006 BHATTI, [place] N 02/28/2006 DoD Modalities Electrical Stimulation Unattended Modalities Electrical Stimulation Unattended 26078 006 BHATTI, [place] N IFC, 50-150, 100% 20 mins, left mid back, max 18 DoD Modalities Traction Modalities Traction 12389 0 006 BHATTI, [place] N intersegmental: tx 10, lx 7 10 mins DoD Chiropractic Manip Treatmt (CMT) Spinal One To Two Regions Chiropractic Manip Treatmt (CMT) Spinal One To Two Regions 42670 006 BHATTI, [place] N DoD Modalities Traction Modalities Traction 91854 0 006 BHATTI, [place] N Intersegmental - tx 10, lx 7, 10 min. DoD Modalities Electrical Stimulation Unattended Modalities Electrical Stimulation Unattended 59842 006 BH[place]TI, [place] N IFC, 100%, 80-150, 20 min, left tx paraspinal, max 20 DoD Modalities Heat Hot Packs Modalities Heat Hot Packs 40331 006 BHATTI, [place] N Upper back 20 mins DoD A isted Exercises For ROM Assisted Exercises For ROM 02633 006 BHATTI, [place] N 02/28/06 DoD Mobilization Soft Ti ue Mobilization Soft Tissue 05009 006 BHATTI, [place] N pivot tx subocc 8m DoD Chiropractic Manip Treatmt (CMT) Spinal One To Two Regions Chiropractic Manip Treatmt (CMT) Spinal One To Two Regions 76788 006 BH[place]TI, [place] N DoD A isted Exercises For ROM Assisted [place]ises [place] ROM 43345 006 BHATTI, [place] N 02/28/06 10m, reviewed with patient. DoD Modalities Traction Modalities Traction 29560 0 006 BHATTI, [place] N tx 10, lx 7, 10 mins DoD Modalities Heat Hot Packs Modalities Heat Hot Packs 61506 006 BHATTI, [place] N tx 20 mins DoD Mobilization Soft Ti ue Mobilization Soft Tissue 27427 006 BHATTI, [place] N pivot tx subocc 8m DoD Modalities Electrical Stimulation Unattended Modalities Electrical Stimulation Unattended 52700 006 BH[place]TI, [place] N IFC, 100%, 80-150, 20 mins, left midback, max 18 DoD Chiropractic Manip Treatmt (CMT) Spinal One To Two Regions Chiropractic Manip Treatmt (CMT) Spinal One To Two Regions 35516 006 BHATTI, [place] N DoD Mobilization Soft Ti ue Mobilization Soft Tissue 35678 006 BHATTI, [place] N pivot tx subocc. 8m DoD Modalities Electrical Stimulation Unattended Modalities Electrical Stimulation Unattended 11923 006 BHATTI, [place] N IFC 100% 80-150. 20 mins, left interscapular region, max 21 DoD Modalities Traction Modalities Traction 88904 0 006 BHATTI, [place] N Intersegmental - tx 9, lx 7, 10 min. DoD Modalities Heat Hot Packs Modalities Heat Hot Packs 85678 006 BHATTI, [place] N 20 mins tx DoD A isted Exercises For ROM Assisted [place] ROM 89177 006 BHATTI, [place] N 02/28/06 DoD Chiropractic Manip Treatmt (CMT) Spinal One To Two Regions Chiropractic Manip Treatmt (CMT) Spinal One To Two Regions 45736 006 BHATTI, [place] N DoD A isted Exercises For ROM Assisted [place]ises [place] ROM 51687 006 BHATTI, [place] N 02/28/2006 DoD Mobilization Soft Ti ue Mobilization Soft Tissue 27914 006 BHATTI, [place] N pivot tx subocc 10m DoD Modalities Heat Hot Packs Modalities Heat Hot Packs 50740 006 BHATTI, [place] N 20 mins neck/upper back DoD Modalities Traction Modalities Traction 29261 0 006 BHATTI, [place] N Intersegmental - tx 9 , lx 7 , 10 min. DoD Modalities Electrical Stimulation Unattended Modalities Electrical Stimulation Unattended 80966 006 BHATTI, [place] N IFC- 100% 80-150, 20 mins, left interscapular region, max 26 DoD Chiropractic Manip Treatmt (CMT) Spinal One To Two Regions Chiropractic Manip Treatmt (CMT) Spinal One To Two Regions 62934 006 BHATTI, [place] N DoD Modalities Electrical Stimulation Unattended Modalities Electrical Stimulation Unattended 46277 006 BHATTI, [place] N IFC, 100%, 80-150, 20 min, left interscap, max 21 pt notes relief. DoD Modalities Traction Modalities Traction 24316 0 006 BH[place]TI, [place] N Intersegmental - tx 9, lx 7, 10 min. DoD A isted Exercises For ROM Assisted [place] ROM 96050 006 BHATTI, [place] N Cervical Therex: Tension release stretches for the neck. Reviewed with patient, handout provided. Corrective postural therex: Anterior chest/pec. major stretch, standing wall posture ex. for the neck and mid back. Reviewed with patient, handout provided. DoD Mobilization Soft Ti ue Mobilization Soft Tissue 73505 006 BHATTI, [place] N pivot tx subocc 10m DoD Modalities Heat Hot Packs Modalities Heat Hot Packs 43121 006 BHATTI, [place] N 20m tx. 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 Social History Type Response Date Comment Source Tobacco smoking status NHIS VA-TOBACCO USER EVERY DAY 11/19/2023 [facility] [place] [facility] History of tobacco use VA-TOBACCO USE WI 30 MIN OF WAKEUP 11/19/2023 [facility] History of tobacco use ORYX ADMIT TOBACCO SCREEN YES 02/10/2023 [facility] History of tobacco use NH-TOBACCO USER EVERY DAY 09/02/2022 [facility] History of tobacco use NH-TOBACCO NEVER USED 01/31/2021 [facility] History of tobacco use NH-TOBACCO QUIT < 1 YEAR 04/13/2020 [facility] History of tobacco use NH-TOBACCO USE BLOCK FEEDER YES 02/23/2020 [facility] History of tobacco use LIFETIME NON-TOBACCO USER 11/27/2017 [facility] History of tobacco use QUIT TOBACCO USE 1-7 YEARS AGO 10/12/2016 [facility] History of tobacco use QUIT TOBACCO USE 1-7 YEARS AGO 09/25/2015 [facility] History of tobacco use QUIT TOBACCO USE 1-7 YEARS AGO 10/05/2013 PT HAS QUIT LES THAN A YEAR AGO. [facility] This section is an empty social history section. [facility] Plan of Care List of future care activities from [facility] of [facility] facilities. Additional future care activities may be listed in the Assessment and Plan section. Date/Time Care Activity Care Activity Detail Facili ty 11/16/2024 AMBULATORY - MEDICINE AMBULATORY [facility] 12/31/2024 AMBULATORY - MEDICINE AMBULATORY - MEDICI NE [facility] 2025 AMBULATORY - MEDICINE AMBULATORY - MEDICI [facility] 11/01/2024 Consult Order COMMUNITY CARE-O RTHO SURGICAL Cons Shoe Clerk's Choice [facility] 11/01/2024 Consult Order ACUPUNCTURE/NHM OUTPT Cons Shoe Clerk's Choice [facility] Advance Directives List of completed, amended, or rescinded Advance Directives on record at Department of [facility] facilities. An actual copy of the Directive is not included. Date Advance Directive Provider Source 03/06/2023 ADVANCE DIRECTIVE BEV PETTIT [facility] 04/20/2020 ADVANCE DIRECTIVE DISCUSSION ERUM MARTÍNEZ [facility] 02/24/2020 ADVANCE DIRECTIVE DISCUSSION POOL FUENTES [facility] 10/30/2016 [facility]VANCE DIRECTIVE [facility]EP [facility]
--- OUTSIDE RECORDS SUMMARY | 2024-11-12 22:00 | XMS_ITS ---
Author Name [facility] [place] Address [address] [place] [address] Care Team Providers Care Parking Lot Supervisor Name Role Phone MARTIN BOWERS Primary Care Provider OPAL Mckay Primary Care Provider Unav ailable Selected Encounter This section includes the information on record at [place] for the Encounter. Date/Time Encounter Type Encounter Description Reason Provider Source Nov 02, 2024 11:00 AM COMPRE OPH EXAM EST PT 1/> OPTOMETRY ICD-10-CM H25.813 Combined forms of age-related cataract, bilateral DAO JUNG Azael Encounter Template Text not used by [place] Assessments - Encounter Diagnoses This section includes the primary and secondary diagnoses documented for the Encounter. Date/Time Primary/Secondary Diagnosis Diagnosis Name Provider Source Nov 02, 2024 11:16 AM PRIMARY Combined forms of age-related cataract, bilateral LEI JUNG [place] [facility] [place] [facility] Nov 02, 2024 11:16 AM SECONDARY Hypertensive retinopathy, [facility] [place] Plan of Treatment: Future Appointments (+ [...] 20 appointments. The data comes from all [facility]. Appointment Date/Time Appointment Type Appointme nt Facility Name Nov 03, 2024 01:00 PM [facility] Nov 04, 2024 08:30 AM [facility] Nov 09, 2024 02:30 PM [facility]ATORY - [facility]IC[facility] Nov 16, 2024 09:00 AM [facility] Dec 31, 2024 10:30 AM [facility] 2025 09:30 AM [facility] Active, Pending, and Scheduled Orders This section includes a listing of several types of active, pending, and scheduled orders, including clinic medications orders, diagnostic test orders, procedure orders and consult orders; where the start date of the order is 45 days before the date of the Encounter or 45 days after the date of theEncounter. The data comes from all [facility]. Test Date/Time Test Type Test Details Facility Name Nov 01, 2024 08:45 AM Consult Order COMMUNITY CARE-ORTHO SURGICAL Cons Junior Bookkeeper's Choice [facility] Nov 01, 2024 12:55 PM Consult Order ACUPUNCTUR E/NHM OUTPT Cons Junior Bookkeeper's Choice [facility] Social History: Smoking Status (Most current) [...] Gino hanson Nov 19, 2023 10:00 AM IN-TOBACCO USE WI 30 MIN OF WAKEUP [facility] Tobacco Use History This section includes a history of the smoking, or tobacco-related health factors, that were collected on or before the date of the Encounter. The data comes from the [place] facility where the Encounter took place. Date/Time Smoking Status/Tobac co Use Comment Facility Nov 19, 2023 10:00 AM VA-TOBACCO USE ADVICE [facility] [place] [facility] Nov 19, 2023 10:00 AM VA-TOBACCO USE MECHANICAL APPLICATIONS ENGINEER NO IN [facility] [place] [facility] Nov 19, 2023 10:00 AM VA-TOBACCO USE MED NO [facility] [place] [facility] Nov 19, 2023 10:00 AM VA-TOBACCO USE WI 30 MIN OF WAKEUP [facility] [place] [facility] Nov 19, 2023 10:00 AM VA-TOBACCO USER EVERY DAY [facility] [place] [facility] February 10, 2023 01:00 PM ORYX ADMIT TOBACCO SCREEN YES IN [facility] [place] [facility] February 10, 2023 01:00 PM ORYX ADMIT TOBACCO USE CIGS GR 5D IN [facility] [place] [facility] February 10, 2023 01:00 PM ORYX DAILY TOBACCO MECHANICAL APPLICATIONS ENGINEER [facility] February 10, 2023 01:00 PM ORYX DAILY TOBACCO MEDS ORDERED IN [facility] [place] [facility] Sep 02, 2022 08:00 AM VA-TOBACCO USE 30 YEARS OR MORE IN [facility] [place] [facility] Sep 02, 2022 08:00 AM VA-TOBACCO USE ADVICE IN [facility] [place] [facility] Sep 02, 2022 08:00 AM VA-TOBACCO USE MECHANICAL APPLICATIONS ENGINEER YES IN [facility] [place] [facility] Sep 02, 2022 08:00 AM VA-TOBACCO USE MED NOTIFY PROVIDER IN [facility] [place] [facility] Sep 02, 2022 08:00 AM VA-TOBACCO USE WI 30 MIN OF WAKEUP IN [facility] [place] [facility] Sep 02, 2022 08:00 AM VA-TOBACCO USER EVERY DAY IN [facility] [place] [facility] Oct 12, 2016 09:13 AM QUIT TOBACCO USE 1-7 YEARS AGO [facility] Sep 25, 2015 10:24 AM QUIT TOBACCO USE 1-7 YEARS AGO [facility] Oct 05, 2013 03:03 PM QUIT TOBACCO USE 1-7 YEARS AGO PT HAS QUIT LES THAN A YEAR AGO. [facility] Oct 05, 2013 03:03 PM QUIT TOBACCO USE IN PAST YEAR [facility] Advance Directives: All historical and current [...] Mar 06, 2023 ADVANCE DIRECTIVE BEV PETTIT [facility] Mar 06, 2023 ADVANCE DIRECTIVE DISCUSSION BEV PETTIT [facility] Apr 20, 2020 ADVANCE DIRECTIVE DISCUSSION ERUM MARTÍNEZ [facility] Feb 24, 2020 ADVANCE DIRECTIVE DISCUSSION POOL FUENTES [facility] Oct 30, 2016 ADVANCE DIRECTIVE KULDEEP FAM [facility] Encounter Notes: All associated encounter notes This section contains the clinical notes associated to the Encounter. Date/Time Encounter Note(s) Provider Source Nov 02, 2024 11:13 AM OPTOMETRY NOTE: LOCAL TITLE: OPTOMETRY NOTE(T) STANDARD TITLE: OPTOMETRY NOTE DATE OF NOTE: NOV 02, 2024@11:13 ENTRY DATE: NOV 02, 2024@11:14:04 AUTHOR: DAO JUNG EXP COSIGNER: URGENCY: STATUS: COMPLETED I saw this patient in conjunction with the student and agree to the stated findings and plan after reviewing both history and repeating hernandez elements of physical exam. Patient presents for comprehensive exam with history of mild hypertensive retinopathy and combined cataracts not visually significant. He wears distance as needed. Otherwise no other acute ocular disease was seen today. The patient will return in 12 months or sooner if any problems arise. /brown/ DAO JUNG OD STAFF GERIATRIC NURSE Signed: 11/02/2024 11:35 DAO JUNG [facility] [place] Nov 02, 2024 07:33 AM OPTOMETRY NOTE: LOCAL TITLE: OPTOMETRY NOTE STANDARD TITLE: OPTOMETRY NOTE DATE OF NOTE: NOV 02, 2024@07:33 ENTRY DATE: NOV 02, 2024@07:33:10 AUTHOR: DAO GARCIA EXP COSIGNER: DAO JUNG URGENCY: STATUS: COMPLETED Active problems - Computerized Problem List is the source for the followin. Family history of malignant neoplasm of colon over age 50 2. Hyperlipidemia (SCT 18802909) 3. Acute back pain - lumbar 4. Tinea unguium 5. Exposure to potentially hazardous substance 6. Homeless 7. Inguinal hernia 8. Cannabis dependence 9. Schizoaffective disorder, bipolar type 10. Alcohol dependence 11. Hypertension 12. Gastroesophageal reflux disease 13. Nicotine dependence 14. Bipolar disorder 15. Positive PPD 16. Left knee pain (SNOMED CT [id number]) 17. Asthma (SNOMED CT 609373306) Active Outpatient Medications (including Supplies): Active Outpatient Medications Status = 1) ACETAMINOPHEN 500MG TAB TAKE TWO TABLETS BY MOUTH TWICE ACTIVE DAILY NEEDED Indication: FOR PAIN 2) ALBUTEROL 90MCG (CFC-F) 200D ORAL INHL INHALE 2 PUFFS BY ACTIVE (S) MOUTH FOUR TIMES DAILY NEEDED Indication: FOR BRONCHOSPASM 3) ALBUTEROL SO4 0.083% INHL 3ML INHALE 1 AMPULE IN NEBULIZER ACTIVE FOUR TIMES DAILY NEEDED FOR BREATHING Indication: FOR ASTHMA ATTACK 4) AMLODIPINE BESYLATE 5MG TAB TAKE ONE TABLET BY MOUTH ONCE ACTIVE DAILY FOR BLOOD PRESSURE/HEART, DO NOT TAKE WITH GRAPEFRUIT JUICE Indication: FOR HIGH BLOOD PRESSURE 5) ATORVASTATIN CALCIUM 40MG TAB TAKE ONE-HALF TABLET BY MOUTH ACTIVE ONCE DAILY Indication: FOR HIGH CHOLESTEROL 6) CHOLECALCIF 25MCG (D3-1,000UNIT) TAB TAKE ONE TABLET BY ACTIVE MOUTH ONCE DAILY FOR VITAMIN SUPPLEMENTATION Indication: FOR VITAMIN D DEFICIENCY 7) IBUPROFEN 800MG TAB TAKE ONE TABLET BY MOUTH THREE TIMES ACTIVE DAILY NEEDED TAKE WITH FOOD Indication: FOR PAIN 8) LIDOCAINE 5% PATCH APPLY 1 PATCH TOPICALLY ONCE DAILY ACTIVE (LEAVE PATCH ON FOR 12 HOURS, THEN REMOVE PATCH) Indication: FOR NERVE PAIN 9) MULTIVITAMIN/MINERALS CAP/TAB TAKE ONE CAP/TAB BY MOUTH ONCE ACTIVE DAILY Indication: FOR VITAMINS 10) NICOTINE 14MG/24HR PATCH APPLY 1 PATCH TO SKIN ONCE DAILY ACTIVE (REMOVE OLD PATCH BEFORE APPLYING NEW PATCH) Indication: FOR SMOKING CESSATION 11) NICOTINE POLACRILEX 4MG MINI LOZENGE DISSOLVE 1 LOZENGE BY ACTIVE MOUTH SIX TIMES A DAY NEEDED Indication: FOR NICOTINE REPLACEMENT 12) QUETIAPINE FUMARATE 100MG TAB TAKE ONE TABLET BY MOUTH AT ACTIVE BEDTIME AND TAKE ONE TABLET AT BEDTIME NEEDED AND TAKE ONE TABLET AT BEDTIME NEEDED Indication: SCHIZOAFFECTIVE BIPOLAR/ SLEEP 13) TRAZODONE HCL 100MG TAB TAKE ONE TABLET BY MOUTH AT BEDTIME ACTIVE AND TAKE ONE-HALF TABLET AT BEDTIME NEEDED Indication: SLEEP Active Non-VA Medications Status = 1) Non-VA OMEPRAZOLE 20MG EC CAP 20MG BY MOUTH EVERY MORNING 30 ACTIVE MINUTES BEFORE BREAKFAST Indication: FOR GASTROESOPHAGEAL REFLUX DISEASE 14 Total Medications Allergies: CATS All medications including those prescribed by outside VA's, community providers, and all OTC meds were reviewed and reconciled with patient to the best of their abilities. This 49 year old MALE is seen today for ITZ SHOBHA: 07/10/2023 Chief Complaint: reports he had a stye in the past. no changes to vision since last appointment. OHx: 1. Mild stage 1 Hypertensive retinopathy 2. Astigmatism, presbyopia OU 3. Combined Cataracts OU Ocular Medications: (-) Pain: (-) GANT: (-) Diplopia: (-) Flashes: (-) Floaters: (-) Amaurosis Fugax/Tia's: (-) Eye Injury: (-) Eye Surgery: (-) TBI FOHx: (-) Glaucoma/Blindness (+) Macular degeneration VITALS (most recent, as listed in the electronic record): B/P: 130/70 (11/01/2024 08:24) Pulse: 98 (09/20/2024 15:10) Temperature: 98.4 F [36.9 C] (08/10/2024 10:08) Weight: 161.6 lb [73.30 kg] (07/10/2023 09:58) Height: 68 in [172.7 cm] (10/12/2016 09:10) BMI: BMI: 24.6 PERTINENT LABS: HEMOGLOBIN A1C TREND Collection DT Spec HGBA1c 07/06/2024 14:09 BLOOD 4.9 02/12/2023 07:00 BLOOD 4.7 (-) Smoker/Length of Time/PPD: Current Rx with last BCVA: OD: [place] -0.75 x 130 20/20 OS: -0.25 -1.00 x 060 20/20 Add: +1.50 20/20 OU DVA ( )sc ( X )cc - phoropter OD: 20/30 OS: 20/20 Pupils: PERRL (-)APD EOMs: SAFE OU, (-)Pain/Diplopia CVF (facial, peripheral): FTFC OU Subjective Refraction: OD: -0.25 -0.50 x 105 20/20 OS: -0.25 -1.00 x 060 20/20 Add: +1.50 20/20 OU All the above performed by student, reviewed by attending Anterior segment: Performed by student, repeated by attending * Lids: +1 MGD OU Conj: white and quiet OU Cornea: clear OU AC: D&Q OU Angles: 4x4 OU Iris: flat and clear OU, (-) NVI Lens: Trace NSC OU, +1 ACC OS> OD Tonometry: Performed by student, reviewed by attending * [X ] GAT [ ] iCare OD 12 mmHg OS 13 mmHg Time: 11:17 am Fundus exam: Dilated: XXXX Non dilated: Dilating Drops: 1GTT 1 % Tropicamide OU & 1GTT 2.5% Phenylephrine OU (Pt. ed. on side effects, dilation warning given and verbal consent obtained) Patient advised not to drive if they feel they have any symptoms which could affect their ability to drive safely. Patient advised not to engage in any activities which could put themselves or others at risk if they feel they have any symptoms which could affect their ability to perform those activities safely. Performed by student, repeated by attending * Vit: clear OU C/D: 0.25 OD, 0.30 OS Macula: flat and clear OU, (-) CME PPole: clear (-) Exudates, CWS, FSH, DBH A/V: 2/3 Vessels: Generalized narrowing w/ silver/copper wiring OU Periph: flat and intact (-)holes, tears, detachments 360 OU, Assessment/Plan: 1. Grade 1 Hypertensive Retinopathy OU - Mild narrowing and Silver/ copper wiring OU - Pt ed on findings, stressed importance of controlling blood pressure - Monitor 2. Combined Form Cataracts OU - Pt. ed. on findings - cataracts are not visually significant - surgery is not necessary at this time - Ed. on importance of UV protection and on symptoms of glare - Monitor 3. Regular astigmatism and presbyopia OU - Pt. ed. on todays findings - Is going to do same frames for DVO with transitions - Monitor Return to Clinic 2 years for CEE or earlier PRN [place] Education: After discussion and answering all 's questions, [place] demonstrated and verbalized understanding of diagnosis and treatment. Yes [x] No [ ] Medication Reconciliation: Outpatient: Has the patient been [...] to the next appointment, whether with a VA or non-VA provider. /brown/ DAO GARCIA OPTOMETRY STUDENT Signed: 11/02/2024 11:46 /brown/ DAO JUNG STAFF GERIATRIC NURSE Cosigned: 11/02/2024 12:14 DAO GARCIA IN [facility]
--- OUTSIDE RECORDS SUMMARY | 2024-11-12 22:00 | XMS_ITS ---
Author Name [place] Address [address] [place] [address] Care Team Providers Care Cotton Gin Yard Supervisor Name Role Phone MARTIN BOWERS Primary Care Provider OPAL Mckay Primary Care Provider Unav ailable Selected Encounter This section includes the information on record at [place] for the Encounter. Date/Time Encounter Type Encounter Description Reason Pro vider Source Nov 03, 2024 03:20 PM Outpatient Encounter [facility] IHE Encounter Template Text not used [...] REHAB MEDICIN E [place] [facility] Nov 09, 2024 02:30 PM AM[place]ULATORY - [place]IC[place] [facility] Nov 16, 2024 09:00 AM AM[place]ULATORY [place]IC[place] [facility] Dec 31, 2024 10:30 AM AM[place]ULATORY [place]ICINE [place] [facility] 2025 09:30 AM AM[place]ULATORY - [place]ICINE [place] [facility] Active, Pending, and Scheduled Orders This section [...] AM Consult Order COMMUNITY CARE-ORTHO SURGICAL Cons Manufacturing Technology Analyst's Choice [place] [facility] Nov 01, 2024 12:55 PM Consult Order ACUPUNCTUR E/NHM OUTPT Cons Manufacturing Technology Analy[facility]'s [facility] Social History: Smoking Status (Most current) and Tobacco Use (All prior to encounter date) This section includes the most current, and the historical, smoking and tobacco- related health factors from the [place] facility where the Encounter took place. Current Smoking Status This section includes the most current smoking, or tobacco-related health factor, from the [place] facility where the Encounter took place. Date/Time Current Smoking Status Comment [facility] Nov 19, 2023 10:00 AM VA-TOBACCO USER EVERY DAY [facility] Tobacco Use History This section includes a history of the smoking, or tobacco-related health factors, that were collected on or before the date of the Encounter. The data comes from the [place] facility where the Encounter took place. Date/Time Smoking Status/Tobac co Use Comment Facility Nov 19, 2023 10:00 AM VA-TOBACCO USE ADVICE [place] [facility] Nov 19, 2023 10:00 AM VA-TOBACCO USE INSTRUCTIONAL MATERIALS DIRECTOR NO [place] [facility] Nov 19, 2023 10:00 AM VA-TOBACCO USE MED NO [place] [facility] Nov 19, 2023 10:00 AM VA-TOBACCO USE [place] 30 MIN OF WAKEUP [place] [facility] Nov 19, 2023 10:00 AM VA-TOBACCO USER EVERY DAY [facility] [place] [facility] February 10, 2023 01:00 PM ORYX ADMIT TOBACCO SCREEN YES [place] [facility] February 10, 2023 01:00 PM ORYX ADMIT TOBACCO USE CIGS GR 5D [facility] [place] [facility] February 10, 2023 01:00 PM ORYX DAILY TOBACCO INSTRUCTIONAL MATERIALS DIRECTOR RECEIVED [facility] February 10, 2023 01:00 PM ORYX DAILY TOBACCO MEDS ORDERED [facility] Sep 02, 2022 08:00 AM VA-TOBACCO USE 30 YEARS OR MORE [facility] W[facility]N [facility] Sep 02, 2022 08:00 AM [facility]-TOBACCO [facility] ADVICE [facility] Sep 02, 2022 08:00 AM VA-TOBACCO USE INSTRUCTIONAL MATERIALS DIRECTOR YES [facility] Sep 02, 2022 08:00 AM VA-TOBACCO USE MED NOTIFY PROVIDER [facility] PHILIPTR[facility] Sep 02, 2022 08:00 AM VA-TOBACCO USE WI 30 MIN OF WAKEUP [facility]TR[facility] Sep 02, 2022 08:00 AM VA-TOBACCO USER EVERY DAY [facility]TR[facility] Oct 12, 2016 09:13 AM QUIT TOBACCO USE 1-7 YEARS AGO [facility] [place] [facility] Sep 25, 2015 10:24 AM QUIT TOBACCO USE 1-7 YEARS AGO [facility] [place] [facility] Oct 05, 2013 03:03 PM QUIT TOBACCO USE 1-7 YEARS AGO PT HAS QUIT LES THAN A YEAR AGO. [facility] [place] [facility] Oct 05, 2013 03:03 PM QUIT TOBACCO USE IN PAST YEAR [facility] Advance Directives: All historical and current Section Date Range: From patient's date of to the date document was created. This section includes ALL of a patient's completed or amended [place] Advance and Rescinded Directives. The entries below indicate that a directive exists for the patient, but an actual copy is not included with this document. The data comes from all [place] facilities. Date Advance Directives Provider Source Mar 06, 2023 ADVANCE DIRECTIVE HODAN,BEV Hummel [facility] Mar 06, 2023 ADVANCE DIRECTIVE DISCUSSION SU PETTITEstephanie Hummel [facility] Apr 20, 2020 ADVANCE DIRECTIVE DISCUSSION ERUM MARTÍNEZ [facility] Feb 24, 2020 ADVANCE DIRECTIVE DISCUSSION POOL FUENTES [facility] Oct 30, 2016 ADVANCE DIRECTIVE KULDEEP FAM [facility] Encounter Notes: All associated encounter notes This section contains the clinical notes associated to the Encounter. Date/Time Encounter Note(s) Provider Source Nov 03, 2024 03:20 PM ADMINISTRATIVE NOT E: LOCAL TITLE: ADMINISTRATIVE NOTE STANDARD TITLE: ADMINISTRATIVE NOTE DATE OF NOTE: NOV 03, 2024@15:20 ENTRY DATE: NOV 03, 2024@15:21:26 AUTHOR: LALO GARCIA EXP COSIGNER: URGENCY: STATUS: COMPLETED Left message for court ([phone]) about Paras's status on the [facility] and the expected wait time of around 2 months. Minutes later, encountered him in the [place], where he was waiting for a note from the nurse to the same effect. /brown/ LALO GARCIA, PhD Clinical Psychologist Signed: 11/03/2024 15:23 LALO GARCIA [facility]
--- OUTSIDE RECORDS SUMMARY | 2024-11-12 22:01 | XMS_ITS | Encounter Summary ---
Author Name [facility] [place] Organization [place] Address [address] [place] [address] Care Team Providers Care Brand Communications Manager Name Role Phone MARTIN BOWERS Primary Care Provider OPAL Mckay Primary Care Provider Unajerome ailable Selected Encounter This section includes the information on record at [place] for the Encounter. Date/Time Encounter Type Encounter Description Reason Pro vider Source IHE Encounter Template Text not used by [place] Advance Directives: All historical and current Section [...] Mar 06, 2023 ADVANCE DIRECTIVE BEV PETTIT [place] [facility] Mar 06, 2023 ADVANCE DIRECTIVE DISCUSSION BEV PETTIT [place] [facility] Apr 20, 2020 ADVANCE DIRECTIVE DISCUSSION ERUM MARTÍNEZ [facility] Feb 24, 2020 ADVANCE DIRECTIVE DISCUSSION POOL FUENTES [facility] Oct 30, 2016 ADVANCE DIRECTIVE KULDEEP FAM [place] [facility]L [facility]
--- OUTSIDE RECORDS SUMMARY | 2024-11-12 22:01 | XMS_ITS ---
Author Name Department [place] Address [address] [place] [address] Care Team Providers Care Cost Reduction Engineer Name Role Phone MARTIN BOWERS Primary Care Provider OPAL Mckay Primary Care Provider Unav ailable Selected Encounter This section includes the information on record at [place] for the Encounter. Date/Time Encounter Type Encounter Description Reason Pro vider Source Nov 11, 2024 09:38 AM Outpatient Encounter COMMUNITY CARE CONSULT IHE Encounter Template Text not used by VA Plan of Treatment: Future Appointments (+ 6 months) and Future Tests (+/- 45 days) The Plan of Treatment section includes future care activities for the patient from all [place] treatmentfacilities. This section includes future appointments and future orders which are active, pending or scheduled. Future Appointments This section includes appointments that were scheduled to occur 6 months from the date of the Encounter, up to a maximum of 20 appointments. The data comes from all [place] treatment facilities. Appointment Date/Time Appointment Type Appointme nt Facility Name Nov 16, 2024 09:00 AM AMBULATORY - MEDICINE [place] [facility] Dec 31, 2024 10:30 AM AMBULATORY - MEDICINE [facility] [place] [place] [facility] 2025 09:30 AM AMBULATORY - MEDICINE [place] [facility] Active, Pending, and Scheduled Orders This section includes a listing of several types of active, pending, and scheduled orders, including clinic medications orders, diagnostic test orders, procedure orders and consult orders; where the start date of the order is 45 days before the date of the Encounter or 45 days after the date of theEncounter. The data comes from all [place] treatment facilities. Test Date/Time Test Type Test Details Facility Name Nov 01, 2024 08:45 AM Consult Order COMMUNITY CARE-ORTHO SURGICAL Cons Registered Nurse Bone Marrow Transplant's Choice [place] [facility] Nov 01, 2024 12:55 PM Consult Order ACUPUNCTUR E/NHM OUTPT Cons Registered Nurse Bone Marrow Transplant's Choice [place] [facility] Social History: Smoking Status (Most current) and Tobacco Use (All prior to encounter date) This section includes the most current, and the historical, smoking and tobacco- related health factors from the [place] facility where the Encounter took place. Current Smoking Status This section includes the most current smoking, or tobacco-related health factor, from the [place] facility where the Encounter took place. Date/Time Current Smoking Status Comment [facility] Nov 19, 2023 10:00 AM VA-TOBACCO USER EVERY DAY [place] [facility] Tobacco Use History This section includes a history of the smoking, or tobacco-related health factors, that were collected on or before the date of the Encounter. The data comes from the [place] facility where the Encounter took place. Date/Time Smoking Status/Tobac co Use Comment Facility Nov 19, 2023 10:00 AM VA-TOBACCO USE ADVICE [place] [facility] Nov 19, 2023 10:00 AM VA-TOBACCO USE PRODUCT MARKETER NO [place] [facility] Nov 19, 2023 10:00 AM VA-TOBACCO USE MED NO [place] [facility] Nov 19, 2023 10:00 AM VA-TOBACCO USE WI 30 MIN OF WAKEUP [place] [facility] Nov 19, 2023 10:00 AM VA-TOBACCO USER EVERY DAY [place] [facility] February 10, 2023 01:00 PM ORYX ADMIT TOBACCO SCREEN YES [place] [facility] [place] [facility] [facility] February 10, 2023 01:00 PM ORYX ADMIT TOBACCO USE [facility]IGS GR 5D [facility] February 10, 2023 01:00 PM ORYX DAILY TOBACCO PRODUCT MARKETER RECEIVED [facility] February 10, 2023 01:00 PM ORYX DAILY TOBACCO MEDS ORDERED [facility] Sep 02, 2022 08:00 AM VA-TOBACCO USE 30 YEARS OR MORE [facility] Sep 02, 2022 08:00 AM VA-TOBACCO USE ADVICE [facility] Sep 02, 2022 08:00 AM VA-TOBACCO USE PRODUCT MARKETER YES [facility] Sep 02, 2022 08:00 AM VA-TOBACCO USE MED NOTIFY PROVIDER [facility] Sep 02, 2022 08:00 AM VA-TOBACCO USE [place] 30 MIN OF WAKEUP [facility] Sep 02, 2022 08:00 AM VA-TOBACCO USER EVERY DAY [facility] Oct 12, 2016 09:13 AM QUIT TOBACCO USE 1-7 YEARS AGO [facility] Sep 25, 2015 10:24 AM QUIT TOBACCO USE 1-7 YEARS AGO [facility] Oct 05, 2013 03:03 PM QUIT TOBACCO USE 1-7 YEARS AGO PT HAS QUIT LES THAN A YEAR AGO. [facility] Oct 05, 2013 03:03 PM QUIT TOBACCO USE IN PAST YEAR [facility] Advance Directives: All historical and current Section Date Range: From patient's date of to the date document was created. This section includes ALL of a patient's completed or amended [place] Advance and Rescinded Directives. The entries below indicate that a directive exists for the patient, but an actual copy is not included with this document. The data comes from all [place] facilities. Date Advance Directives Provider Source Mar 06, 2023 ADVANCE DIRECTIVE BEV PETTIT [facility] Mar 06, 2023 ADVANCE DIRECTIVE DISCUSSION BEV PETTIT [facility] WSN [facility] Apr 20, 2020 ADVANCE DIRECTIVE DISCUSSION ERUM MARTÍNEZ [facility] Feb 24, 2020 ADVANCE DIRECTIVE DISCUSSION POOL FUENTES [facility] Oct 30, 2016 ADVANCE DIRECTIVE KULDEEP FAM [facility] Encounter Notes: All associated encounter notes This section contains the clinical notes associated to the Encounter. Date/Time Encounter Note(s) Provider Source Nov 11, 2024 09:38 AM NONVA NOTE: [facility] TITLE: [facility] PRESENTING CARE COORD PLAN STANDARD TITLE: NONVA NOTE DATE OF NOTE: NOV 11, 2024@09:38 ENTRY DATE: NOV 11, 2024@09:38:49 AUTHOR: BEV SCHULER COSIGNER: URGENCY: STATUS: COMPLETED Emergency Notification Intake Date Presenting to the Facility: Aug Method of Contact: Notified from [facility] worklist Notification ID: [id number] [facility] Referral #: [facility] Name: Hospital: [facility] Address: City: [place] State: [place] Zip Code: Phone : [facility] Point of Contact: Name: Phone: Chief complaint: [id number] - Viral infection, unspecified Primary Diagnosis: Disposition Unknown at time of intake note entry /brown/ BEV ROBERTSON Signed: 11/11/2024 09:39 Receipt Acknowledged By: * AWAITING SIGNATURE * BLESSING PABLO DAWN MARIE SIM[place]URY
--- OUTSIDE RECORDS SUMMARY | 2024-11-12 22:01 | XMS_ITS ---
Author Name Department of [place] Organization [place] Address [address] [place] [address] Care Team Providers Care Wheel Aligner Name Role Phone MARTIN BOWERS Primary Care Provider OPAL Mckay Primary Care Provider Unav ailable Selected Encounter This section includes the information on record at [place] for the Encounter. Date/Time Encounter Type Encounter Description Reason Pro vider Source Nov 01, 2024 09:54 AM Outpatient Encounter PRIMARY CARE/MEDICINE IHE Encounter Template Text not used by [place] Plan of Treatment: Future Appointments (+ 6 months) and Future Tests (+/- 45 days) The Plan of Treatment section includes future care activities for the patient from all [place] treatmentfacilities. This section includes future appointments and future orders which are active, pending or scheduled. Future Appointments This section includes appointments that were scheduled to occur 6 months from the date of the Encounter, up to a maximum of 20 appointments. The data comes from all [place] treatment facilities. Appointment Date/Time Appointment Type Appointme nt Facility Name Nov 02, 2024 09:00 AM AMBULATORY - MEDICINE [facility] [place] [facility] Nov 02, 2024 11:00 AM AMBULATORY - MEDICINE [facility] [place] [facility] Nov 03, 2024 01:00 PM AMBULATORY - MEDICINE [place] [facility] Nov 04, 2024 08:30 AM AMBULATORY - REHAB MEDICIN E [place] [facility] Nov 09, 2024 02:30 PM AMBULATORY - MEDICINE [place] [facility] Nov 16, 2024 09:00 AM AMBULATORY - MEDICINE [place] [facility] Dec 31, 2024 10:30 AM AMBULATORY - MEDICINE [facility] [place] [facility] 2025 09:30 AM AMBULATORY - MEDICINE [facility] [place] [facility] Active, Pending, and Scheduled Orders This section includes a listing of several types of active, pending, and scheduled orders, including clinic medications orders, diagnostic test orders, procedure orders and consult orders; where the start date of the order is 45 days before the date of the Encounter or 45 days after the date of theEncounter. The data comes from all [place] treatment facilities. Test Date/Time Test Type Test Details Facility Name Nov 01, 2024 08:45 AM Consult Order COMMUNITY CARE-ORTHO SURGICAL Cons Incubator Operator[facility] Choice [facility] [place] [facility] Nov 01, 2024 12:55 PM Consult Order ACUPUNCTUR E/NHM OUTPT Cons Incubator Operator's Choice [facility] [place] [facility] Vital Signs: All taken on the encounter date This section contains inpatient and outpatient Vital Signs collected on the date of the Encounter. Date/Time Temperature Pulse Blood Pressure Respiratory Rate SP02 Pain Height Weight Body Mass Index Source Nov 01, 2024 08:24 AM 130/70 0 [facility] [place] [facility] Social History: Smoking Status (Most current) and Tobacco Use (All prior to encounter date) This section includes the most current, and the historical, smoking and tobacco- related health factors from the [place] facility where the Encounter took place. Current Smoking Status This section includes the most current smoking, or tobacco-related health factor, from the [place] facility where the Encounter took place. Date/Time Current Smoking Status Comment Gino hanson Nov 19, 2023 10:00 AM [place]-TOBACCO USE [place] 30 MIN [facility] WAKEUP [facility] Tobacco Use History This section includes a history of the smoking, or tobacco-related health factors, that were collected on or before the date of the Encounter. The data comes from the [place] facility where the Encounter took place. Date/Time Smoking Status/Tobac co Use Comment Facility Nov 19, 2023 10:00 AM VA-TOBACCO USE ADVICE [place] [facility] Nov 19, 2023 10:00 AM VA-TOBACCO USE SENIOR BUSINESS PROCESS ANALYST NO [place] [facility] Nov 19, 2023 10:00 AM VA-TOBACCO USE MED NO [place] [facility] Nov 19, 2023 10:00 AM VA-TOBACCO USE WI 30 MIN OF WAKEUP [place] [facility] Nov 19, 2023 10:00 AM VA-TOBACCO USER EVERY DAY [place] [facility] February 10, 2023 01:00 PM ORYX ADMIT TOBACCO SCREEN YES [place] [facility] February 10, 2023 01:00 PM ORYX ADMIT TOBACCO USE CIGS GR 5D [place]L [place] [facility] February 10, 2023 01:00 PM ORYX DAILY TOBACCO SENIOR BUSINESS PROCESS ANALYST RECEIVED [place] [facility] February 10, 2023 01:00 PM ORYX DAILY TOBACCO MEDS ORDERED [place] [facility] Sep 02, 2022 08:00 AM VA-TOBACCO USE 30 YEARS OR MORE [place] [facility] Sep 02, 2022 08:00 AM VA-TOBACCO USE ADVICE [place] [facility] Sep 02, 2022 08:00 AM VA-TOBACCO USE SENIOR BUSINESS PROCESS ANALYST YES [place] [facility] Sep 02, 2022 08:00 AM VA-TOBACCO USE MED NOTIFY PROVIDER [place] [facility] Sep 02, 2022 08:00 AM VA-TOBACCO USE WI 30 MIN OF WAKEUP [place] [facility] Sep 02, 2022 08:00 AM VA-TOBACCO USER EVERY DAY [place] [facility] Oct 12, 2016 09:13 AM QUIT TOBACCO USE 1-7 YEARS AGO [place] [facility] Sep 25, 2015 10:24 AM QUIT TOBACCO USE 1-7 YEARS AGO [facility] Oct 05, 2013 03:03 PM QUIT TOBACCO USE 1-7 YEARS AGO PT HAS QUIT LES THAN A YEAR AGO. [facility] Oct 05, 2013 03:03 PM QUIT TOBACCO USE IN PAST YEAR [facility] Advance Directives: All historical and current Section Date Range: From patient's date of to the date document was created. This section includes ALL of a patient's completed or amended [place] Advance and Rescinded Directives. The entries below indicate that a directive exists for the patient, but an actual copy is not included with this document. The data comes from all [place] facilities. Date Advance Directives Provider Source Mar 06, 2023 ADVANCE DIRECTIVE BEV PETTIT [facility] Mar 06, 2023 ADVANCE DIRECTIVE DISCUSSION BEV PETTIT [facility] Apr 20, 2020 ADVANCE DIRECTIVE DISCUSSION ERUM MARTÍNEZ [facility] Feb 24, 2020 ADVANCE DIRECTIVE DISCUSSION POOL FUENTES [facility] Oct 30, 2016 ADVANCE DIRECTIVE KULDEEP FAM [facility] Encounter Notes: All associated encounter notes This section contains the clinical notes associated to the Encounter. Date/Time Encounter Note(s) Provider Source Nov 01, 2024 10:01 AM ADDENDUM: LOCAL TITLE: Addendum STANDARD TITLE: ADDENDUM DATE OF NOTE: NOV 01, 2024@10:01 ENTRY DATE: NOV 01, 2024@10:01 AUTHOR: NEEMA YANCEY EXP COSIGNER: URGENCY: STATUS: COMPLETED addin PCP for consideration of Accupuncture consult /es/ NEEMA YANCEY REGISTERED NURSE Signed: 11/01/2024 10:01 Receipt Acknowledged By: 11/01/2024 12:55 /brown/ OPAL REEVES MD PHYSICIAN === --- Original Document --- 11/01/24 ADMINISTRATIVE NOTE: presented to Acupuncture clinic asking about services, would like to have consult/referral placed for those services due to knee pain and pain all over his body. can be reached at confirmed phone number in system. Please review. /brown/ JAYLA ROBERTSON Signed: 11/01/2024 09:56 Receipt Acknowledged By: * AWAITING SIGNATURE * NEEMA YANCEY * AWAITING SIGNATURE * CLARITA VALENCIA MELISSA H [facility] Nov 01, 2024 09:54 AM ADMINISTRATIVE NOTE: LOCAL TITLE: ADMINISTRATIVE NOTE STANDARD TITLE: ADMINISTRATIVE NOTE DATE OF NOTE: NOV 01, 2024@09:54 ENTRY DATE: NOV 01, 2024@09:54:55 AUTHOR: JAYLA MITTAL EXP COSIGNER: URGENCY: STATUS: COMPLETED ADMINISTRATIVE NOTE Has ADDENDA [place] presented to Acupuncture clinic asking about services, would like to have consult/referral placed for those services due to knee pain and pain all over his body. can be reached at confirmed phone number in system. Please review. /es/ JAYLA ROBERTSON Signed: 11/01/2024 09:56 Receipt Acknowledged By: 11/01/2024 14:16 /brown/ NEEMA YANCEY REGISTERED NURSE 11/01/2024 14:33 /brown/ Clarita Valencia, colliery clerk Staff Nurse 11/01/2024 ADDENDUM STATUS: COMPLETED addin PCP for consideration of Accupuncture consult /brown/ NEEMA YANCEY REGISTERED NURSE Signed: 11/01/2024 10:01 Receipt Acknowledged By: 11/01/2024 12:55 /es/ OPAL REEVES MD PHYSICIAN JAYLA MITTAL [facility]
--- OUTSIDE RECORDS SUMMARY | 2024-11-12 22:01 | XMS_ITS | Encounter Summary ---
Author Name [facility] Organization [facility] Address [address] [place] [address] Care Team Providers Care Absorption And Adsorption Engineer Name Role Phone MARTIN BOWERS Primary Care Provider OPAL Mckay Primary Care Provider Unav ailable Selected Encounter This section includes the information on record at MD for the Encounter. Date/Time Encounter Type Encounter Description Reason Provider Source Sep 20, 2024 03:00 PM OFFICE O/P EST MOD 30 MIN PRIMARY CARE/MEDICINE ICD-10-CM I10 Essential (primary) hypertension OPAL REEVES Azael Encounter Template Text not used by MD Assessments - Encounter Diagnoses This section includes the primary and secondary diagnoses documented for the Encounter. Date/Time Primary/Secondary Diagnosis Diagnosis Name Provider Source Sep 20, 2024 04:32 PM PRIMARY Essential (primary) hypertension OPAL REEVES [facility] [place] [facility] Sep 20, 2024 04:32 PM SECONDARY Hyperlipidemia, unspecified OPAL REEVES MD [facility] [place] [facility] Sep 20, 2024 04:32 PM SECONDARY Nicotine dependence, unspecified, uncomplicated OPAL REEVES MD [facility] [place] [facility] Sep 20, 2024 04:32 PM SECONDARY Other asthma AlessandroGRUPOOPAL MD [facility] [place] [facility] Sep 20, 2024 04:32 PM SECONDARY Pain in left knee AlessandroGRUPOOPAL MD [facility] [place] [facility] Plan of Treatment: Future Appointments (+ 6 months) and Future Tests (+/- 45 days) The Plan of Treatment section includes future care activities for the patient from all [facility]. This section includes future appointments and future orders which are active, pending or scheduled. Future Appointments This section includes appointments that were scheduled to occur 6 months from the date of the Encounter, up to a maximum of 20 appointments. The data comes from all MD treatment facilities. Appointment Date/Time Appointment Type Appointme nt Facility Name Oct 05, 2024 04:00 PM AMBULATORY - MEDICINE [facility] [place] [facility] Oct 20, 2024 10:45 AM AMBULATORY - MEDICINE MD [facility] [place] [facility] Nov 01, 2024 08:00 AM AMBULATORY - MEDICINE [facility] [place] [facility] Nov 02, 2024 09:00 AM AMBULATORY - MEDICINE [facility] [place] [facility] Nov 02, 2024 11:00 AM AMBULATORY - MEDICINE [facility] [place] [facility] Nov 03, 2024 01:00 PM AMBULATORY - MEDICINE [facility] [place] [facility] Nov 04, 2024 08:30 AM AMBULATORY - REHAB MEDICIN E [facility] [place] [facility] Nov 09, 2024 02:30 PM AMBULATORY - MEDICINE [facility] [place] [facility] Nov 16, 2024 09:00 AM AMBULATORY - MEDICINE [facility] [place] [facility] Dec 31, 2024 10:30 AM AMBULATORY - MEDICINE [facility] [place] [facility] 2025 09:30 AM AMBULATORY - MEDICINE MD [facility] [place] [facility] Active, Pending, and Scheduled Orders This section includes a listing of several types of active, pending, and scheduled orders, including clinic medications orders, diagnostic test orders, procedure orders and consult orders; where the start date of the order is 45 days before the date of the Encounter or 45 days after the date of theEncounter. The data comes from all MD treatment facilities. Test Date/Time Test Type Test Details Facility Name Nov 01, 2024 08:45 AM Consult Order [facility]THO SURGICAL Cons Project Estimator's Choice MD [facility] [place] [facility] Nov 01, 2024 12:55 PM Consult Order ACUPUNCTUR E/NHM OUTPT Cons Project Estimator's Choice MD [facility] [place] [facility] Vital Signs: All taken on the encounter date This section contains inpatient and outpatient Vital Signs collected on the date of the Encounter. Date/Time Temperature Pulse Blood Pressure Respiratory Rate SP02 Pain Height Weight Body Mass Index Source Sep 20, 2024 03:10 PM 98 145/90 18 98 [facility] [place] [facility] Social History: Smoking Status (Most current) and [...] took place. Date/Time Current Smoking Status Comment [facility] Nov 19, 2023 10:00 AM VA-TOBACCO USER EVERY DAY MD [facility] [place] [facility] Tobacco Use History This section includes a history of the smoking, or tobacco-related health factors, that were collected on or before the date of the Encounter. The data comes from the MD facility where the Encounter took place. Date/Time Smoking Status/Tobac co Use Comment Facility Nov 19, 2023 10:00 AM VA-TOBACCO USE ADVICE MD [facility] [place] [facility] Nov 19, 2023 10:00 AM VA-TOBACCO USE SUPERVISOR HEAT TREATING NO [facility] [place] [facility] Nov 19, 2023 10:00 AM VA-TOBACCO USE MED NO MD [facility] [place] [facility] Nov 19, 2023 10:00 AM VA-TOBACCO USE WI 30 MIN OF WAKEUP MD [facility] [place] [facility] Nov 19, 2023 10:00 AM VA-TOBACCO USER EVERY DAY MD [facility] [place] [facility] February 10, 2023 01:00 PM ORYX ADMIT TOBACCO SCREEN YES [facility] February 10, 2023 01:00 PM ORYX ADMIT TOBACCO USE CIGS GR [facility]D [facility] February 10, 2023 01:00 PM ORYX DAILY TOBACCO SUPERVISOR HEAT TREATING RECEIVED [facility] February 10, 2023 01:00 PM ORYX DAILY TOBACCO MEDS ORDERED [facility] Sep 02, 2022 08:00 AM VA-TOBACCO USE 30 YEARS OR MORE [facility] Sep 02, 2022 08:00 AM VA-TOBACCO USE ADVICE [facility] Sep 02, 2022 08:00 AM VA-TOBACCO USE SUPERVISOR HEAT TREATING YES [facility] Sep 02, 2022 08:00 AM VA-TOBACCO USE MED NOTIFY PROVIDER [facility] Sep 02, 2022 08:00 AM VA-TOBACCO USE WI 30 MIN OF WAKEUP [facility] Sep 02, 2022 08:00 AM VA-TOBACCO USER EVERY DAY [facility] Oct 12, 2016 09:13 AM QUIT TOBACCO USE 1-7 YEARS AGO [facility] Sep 25, 2015 10:24 AM QUIT TOBACCO USE 1-7 YEARS AGO [facility] Oct 05, 2013 03:03 PM QUIT TOBACCO USE 1-7 YEARS AGO PT HAS QUIT LES THAN A YEAR AGO. [facility] Oct 05, 2013 03:03 PM QUIT TOBACCO USE IN PAST YEAR [facility] Advance Directives: All historical and [...] Mar 06, 2023 ADVANCE DIRECTIVE BEV PETTIT [facility] Mar 06, 2023 ADVANCE DIRECTIVE DISCUSSION BEV PETTIT [facility] Apr 20, 2020 ADVANCE DIRECTIVE DISCUSSION ERUM MARTÍNEZ [facility] Feb 24, 2020 ADVANCE DIRECTIVE DISCUSSION POOL FUENTES [facility] Oct 30, 2016 ADVANCE DIRECTIVE KULDEEP FAM [facility] Radiology Reports: +/- 30 days [...] the Encounter. The data comes from all MD treatment facilities. Date/Time Radiology Report Provider Source Sep 20, 2024 03:48 PM CHEST (2 VIEWS): LAURAJEYSON TIERA [id number] -[id number] M Ex Date: SEP 20, 2024@15:48 Req Phys: OPAL REEVES Loc: CWM/NO/PACT 4 (Req'g Loc) Img Loc: [facility] Service: [place] [address] (Case 51 COMPLETE) CHEST (2 VIEWS) (RAD Detailed) CPT:40286 Reason for Study: remote hx of TB/ 2022 CXR normal Clinical History: Report Status: Verified Date Reported: SEP 20, 2024 Date Verified: SEP 20, 2024 [employer] E-Sig:/ES/MADISON FELIZ Report: Exam: Chest 2-views (PA LAT) [...] immediate attention required Primary Interpreting Staff: MADISON FELIZ, Staff Physician ([employer]) /MADISON POLANCO [facility] Encounter Notes: All associated encounter notes This section contains the clinical notes associated to the Encounter. Date/Time Encounter Note(s) Provider Source Sep 20, 2024 08:02 AM PHYSICIAN NOTE: LOCAL TITLE: MD NOTE STANDARD TITLE: PHYSICIAN NOTE DATE OF NOTE: SEP 20, 2024@08:02 ENTRY DATE: SEP 20, 2024@08:02:24 AUTHOR: LAUREN REEVES EXP COSIGNER: URGENCY: STATUS: COMPLETED HISTORY OF PRESENT ILLNESS: JEYSON SANCHEZ, is a 49 yo WHITE MALE who presents at the MD at [facility]. multiple problems HPI. this vet presents to PCP clinic and reports he is maintaining sobriety, he is living with his parents in [place] and has hx of HTN with good BP control at home but BP elevated when vet presents to office, he denies angina. He has hx of asthma and wants to resume using albuterol via nebulizer and he agrees to start statin for hi chol. Vet reports left knee pain is stable and he prefers ibuprofen as he has used in past ( rather than indocin), no signif effusion of knee. SH smokes 1 ppd Active problems - Computerized Problem List is the source for the followin. Family history of malignant neoplasm of colon over age 50 2. Hyperlipidemia (SCT 04287959) 3. Acute back pain - lumbar 4. Tinea unguium 5. Exposure to potentially hazardous substance 6. Homeless 7. Inguinal hernia 8. Cannabis dependence 9. Schizoaffective disorder, bipolar type 10. Alcohol dependence 11. Hypertension 12. Gastroesophageal reflux disease 13. Nicotine dependence 14. Bipolar disorder 15. Positive PPD 16. Left knee pain (SNOMED CT [id number]) 17. 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 OF SERVICE - [employer] FROM January TO Apr COMBAT SERVICE INDICATED: No SERVICE CONNECTED % - 100 VITAL SIGNS: Temperature 98.4 F [36.9 C] (08/10/2024 10:08) Blood Pressure 148/76 (08/10/2024 10:08) Pulse 91 (08/10/2024 10:08) Respiration 18 (08/10/2024 10:08) Pain 0 (07/10/2023 09:58) BMI BMI: 24.6 Weight 161.6 lb [73.30 kg] (07/10/2023 09:58) Pulse Oximetry 97% (08/10/2024 10:08) Review of Systems: CONSTITUTIONAL: No fever, no loss of appetite ENT: No sore throat, no cough CARDIOVASCULAR: No chest pain, no palpitations RESPIRATORY: No SOB, no wheezing GASTROINTESTINAL: No abd pain, no N/V/D, no change in stool EXAMINATION General: Well-appearing gentleman in no obvious distress. Mental Status: Alert and oriented x 3 Head: Normocephalic. Eyes: Anicteric sclerae. Conjunctivae noninjected. Lungs: CTA. no crackles, no wheezing DATA REVIEW >> MEDICATIONS Reviewed Today (VA & Non VA) ALLERGIES: CATS Active Outpatient Medications (including Supplies): Issue Date Status Last Fill Active Outpatient Medications Refills Expiration 1) ACETAMINOPHEN 500MG TAB Qty: 100 for 90 days ACTIVE Issue: 06/09/24 Sig: TAKE TWO TABLETS BY MOUTH TWICE DAILY Refills: 0 Last : 08/28/24 NEEDED Expr : 06/10/25 Indication: FOR PAIN 2) ALBUTEROL 90MCG (CFC-F) 200D ORAL INHL Qty: ACTIVE Issue: 06/09/24 3 for 90 days Sig: INHALE 2 PUFFS BY MOUTH Refills: 1 Last : 08/28/24 FOUR TIMES DAILY NEEDED Expr : 06/10/25 Indication: FOR BRONCHOSPASM 3) AMLODIPINE BESYLATE 5MG TAB Qty: 90 for 90 ACTIVE Issue: 06/09/24 days Sig: TAKE ONE TABLET BY MOUTH ONCE Refills: 1 Last : 08/28/24 DAILY FOR BLOOD PRESSURE/HEART, DO NOT TAKE Expr : 06/10/25 WITH [employer] JUICE Indication: FOR HIGH BLOOD PRESSURE 4) INDOMETHACIN 50MG CAP Qty: 60 for 30 days ACTIVE Issue: 07/01/24 Sig: TAKE ONE CAPSULE BY MOUTH TWICE DAILY Refills: 0 Last : 08/31/24 NEEDED Expr : 07/02/25 Indication: FOR GOUT 5) LIDOCAINE 5% PATCH Qty: 30 for 30 days Sig: ACTIVE Issue: 07/28/24 APPLY 1 PATCH TOPICALLY ONCE DAILY (LEAVE Refills: 1 Last : 09/17/24 PATCH ON FOR 12 HOURS, THEN REMOVE PATCH) Expr : 07/29/25 Indication: FOR NERVE PAIN 6) MULTIVITAMIN/MINERALS CAP/TAB Qty: 100 for ACTIVE Issue: 06/09/24 90 days Sig: TAKE ONE CAP/TAB BY MOUTH ONCE Refills: 1 Last : 08/28/24 DAILY Expr : 06/10/25 Indication: FOR VITAMINS 7) QUETIAPINE FUMARATE 100MG TAB Qty: 90 for 30 ACTIVE Issue: 07/28/24 days Sig: TAKE ONE TABLET BY MOUTH AT Refills: 2 Last : 08/23/24 BEDTIME AND TAKE ONE TABLET AT BEDTIME Expr : 07/29/25 NEEDED AND TAKE ONE TABLET AT BEDTIME NEEDED Indication: SCHIZOAFFECTIVE BIPOLAR/ SLEEP 8) TRAZODONE HCL 100MG TAB Qty: 45 for 30 days ACTIVE Issue: 07/28/24 Sig: TAKE ONE TABLET BY MOUTH AT BEDTIME AND Refills: 2 Last : 08/23/24 TAKE ONE-HALF TABLET AT BEDTIME NEEDED Expr : 07/29/25 Indication: SLEEP Start Date Active Non-VA Medications Status Stop Date 1) Non-VA OMEPRAZOLE 20MG EC CAP SiMG BY ACTIVE MOUTH EVERY MORNING 30 MINUTES BEFORE BREAKFAST Indication: FOR GASTROESOPHAGEAL REFLUX DISEASE 9 Total Medications >> LABS REVIEWED TODAY: CHEM 7 TREND [...] Connect Capable DUE NOW Advance Directive Screen AD Mar 06 Hepatitis B Immunization DUE NOW Mental Health Treatment Plan DUE NOW Pneumococcal Conjugate Vaccine (PCV15/PCDUE NOW Medication Reconciliation DUE NOW Td / Tdap Immunization Oct 05 COVID-19 Immunization DUE NOW HTN Assess for Elevated BP>=140/90 DUE NOW Herpes Zoster (Shingles) Vaccine DUE NOW RHS Screen DUE NOW (Optional) Whole Health Documentation DUE NOW ASSESSMENT/PLAN: 1. HTN 2. hi chol 3. asthma 4. left knee DJD 5. smoker Plan 1. continue amlodipine and record home BP readings 2. start atorva 20 today 3. albuterol neb machine per [facility] pulm w/ teaching/meds for nebs ordered 4. ibuprofen in place of indocin for knee pain 5. refer to med rehab for injxn 6. counselled re smoking cessation/ patch 14 mg/hr and lozenges also 7. f/u w/ PCP in 5mos LAB ORDERS FOR NEXT APPT. spent in [...] of active outpatient prescriptions dispensed from this MD (local) and dispensed from another MD or [facility] facility (remote) as well as inpatient orders [...] with a VA or non-VA provider. /brown/ OPAL REEVES MD PHYSICIAN Signed: 09/20/2024 16:32 AMELIA REEVES MD [facility]
--- OUTSIDE RECORDS SUMMARY | 2024-11-12 22:02 | XMS_ITS ---
Author Name [facility] [place] [facility] [place] Organization [facility] [place] Address [address] [place] [address] Care Team Providers Care Processing Engineer Name Role Phone MARTIN BOWERS Primary Care Provider OPAL Mckay Primary Care Provider Unajerome ailable Selected Encounter This section includes the information on record at [place] for the Encounter. Date/Time Encounter Type Encounter Description Reason Provider Source Nov 01, 2024 08:00 AM OFFICE O/P NEW LOW 30 MIN PM&RS PHYSICIAN ICD-10-CM M25.562 Pain in left knee CHESTER PABLO Pardeep [facility] Encounter Template Text not used by [place] Assessments - Encounter Diagnoses This section includes the primary and secondary diagnoses documented for the Encounter. Date/Time Primary/Secondary Diagnosis Diagnosis Name Provider Source Nov 02, 2024 12:02 PM PRIMARY Pain in left knee SAMYDENISE DEMETRA Roberto [place] [facility] [place] [facility] Nov 02, 2024 12:02 PM SECONDARY Chondromalacia patellae, left knee DENISE PABLO [facility] [place] [facility] Plan of Treatment: Future Appointments (+ 6 [...] appointments. The data comes from all [facility] facilities. Appointment Date/Time Appointment Type Appointme nt Facility Name Nov 02, 2024 09:00 AM AMBULATORY - MEDICINE [place] [facility] [place] [facility] Nov 02, 2024 11:00 AM AMBULATORY - [place]ICINE [place] [facility] [place] [facility] Nov 03, 2024 01:00 PM AMBULATORY - MEDICINE [place] [facility] [place] [facility] Nov 04, 2024 08:30 AM AMBULATORY - REHAB MEDICIN E [facility] [place] [facility] Nov 09, 2024 02:30 PM AMBULATORY - MEDICINE [place] [facility] [place] [facility] Nov 16, 2024 09:00 AM AMBULATORY - MEDICINE [place] [facility] [place] [facility] Dec 31, 2024 10:30 AM AMBULATORY - [place]ICINE [place] [facility] [place] [facility] 2025 09:30 AM AMBULATORY - [place]IC[place] [facility] [place] [facility] Active, Pending, and Scheduled Orders This section includes a listing of several types of active, pending, and scheduled orders, including clinic medications orders, diagnostic test orders, procedure orders and consult orders; where the start date of the order is 45 days before the date of the Encounter or 45 days after the date of theEncounter. The data comes from all [facility]. Test Date/Time Test Type Test Details Facility Name Nov 01, 2024 08:45 AM Consult Order [facility]ITY [facility]THO SURGICAL Cons Ski Maker [place] [facility] [place] [facility] Nov 01, 2024 12:55 PM Consult Order ACUPUNCTUR E/NHM OUTPT Cons Ski [employer] [place] [facility] [place] [facility] Vital Signs: All taken on the encounter date This section contains inpatient and outpatient Vital Signs collected on the date of the Encounter. Date/Time Temperature Pulse Blood Pressure Respiratory Rate SP02 Pain Height Weight Body Mass Index Source Nov 01, 2024 08:24 AM 130/70 0 [place] [facility] [place] [facility] Social History: Smoking Status (Most current) [...] 2023 10:00 AM VA-TOBACCO USER EVERY DAY [facility] Tobacco Use History This section includes a history of the smoking, or tobacco-related health factors, that were collected on or before the date of the Encounter. The data comes from the [place] facility where the Encounter took place. 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 [place] [facility] [place] [facility] Nov 19, 2023 10:00 AM VA-TOBACCO USE MED NO [place] [facility] [place] [facility] Nov 19, 2023 10:00 AM VA-TOBACCO USE WI 30 MIN OF WAKEUP [place] [facility] [place] [facility] Nov 19, 2023 10:00 AM VA-TOBACCO USER EVERY DAY [place] [facility] [place] [facility] February 10, 2023 01:00 PM ORYX ADMIT TOBACCO SCREEN YES [place] [facility] [place] [facility] February 10, 2023 01:00 PM ORYX ADMIT TOBACCO USE CIGS GR 5D [place] [facility] [place] [facility] February 10, 2023 01:00 PM ORYX DAILY TOBACCO FREELANCE GRAPHIC DESIGNER RECEIVED [place] [facility] [place] [facility] February 10, 2023 01:00 PM ORYX DAILY TOBACCO MEDS ORDERED [place] [facility] [place] [facility] Sep 02, 2022 08:00 AM VA-TOBACCO USE 30 YEARS OR MORE [place] [facility] [place] [facility] Sep 02, 2022 08:00 AM VA-TOBACCO USE ADVICE [facility] Sep 02, 2022 08:00 AM VA-TOBACCO USE 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 [facility] Oct 05, 2013 03:03 PM QUIT TOBACCO USE IN PAST YEAR [facility] Advance Directives: All historical and current [...] Mar 06, 2023 ADVANCE DIRECTIVE BEV PETTIT [facility] Mar 06, 2023 ADVANCE DIRECTIVE DISCUSSION BEV PETTIT [facility] Apr 20, 2020 ADVANCE DIRECTIVE DISCUSSION ERUM MARTÍNEZ [facility] Feb 24, 2020 ADVANCE DIRECTIVE DISCUSSION POOL FUENTES [facility] Oct 30, 2016 ADVANCE DIRECTIVE KULDEEP FAM [facility] Encounter Notes: All associated encounter notes This section contains the clinical notes associated to the Encounter. Date/Time Encounter Note(s) Provider Source Nov 01, 2024 08:22 AM PHYSICAL MEDICINE REHAB CONSULT: LOCAL TITLE: CONSULT REPORT/PM&R STANDARD TITLE: PHYSICAL MEDICINE REHAB CONSULT DATE OF NOTE: NOV 01, 2024@08:22 ENTRY DATE: NOV 01, 2024@08:22:58 AUTHOR: PABLO,CHESTER L EXP COSIGNER: URGENCY: STATUS: COMPLETED NOV 01, 2024 JEYSON SANCHEZ is a 49 y/o RHD WHITE MALE, previously in [place] FROM January TO Apr from PERIOD OF SERVICE - [facility], who was seen today for consultation requested by PCP today for chief complaint of left knee. He twisted knee in [employer] and had arthroscopy. He returned to normal activity. 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 Had knee injury once again in 2005. He was discharged. He was seeing PT in [place]. This was helpful. He moved from [place] in 2018. The knee bothers him when he is not wearing brace and twists. Pain is primarily medially. He gets locking in the back and in the medial compartment. He has not had injections into the knee. He does get swelling if not compressed. Pain level is 5/10 Level of function. 9/10 Cautiously He takes ibuprofen and tylenol with moderate relief. Ice helps. When he was doing PT, the knee felt pretty good to him. Daily activities/exercise:Walks. He does have frequent falls. Pertinent prior procedures and/or imaging: xrays in [place] as obtained from Chart: Active problems - Computerized Problem List is the source for the followin. Family history of malignant neoplasm of colon over age 50 2. Hyperlipidemia (SCT [id number]) 3. Acute back pain - lumbar 4. Tinea unguium 5. Exposure to potentially hazardous substance 6. Homeless 7. Inguinal hernia 8. Cannabis dependence 9. Schizoaffective disorder, bipolar type 10. Alcohol dependence 11. Hypertension 12. Gastroesophageal reflux disease 13. Nicotine dependence 14. Bipolar disorder 15. Positive PPD 16. Left knee pain (SNOMED CT [id number]) 17. Asthma (SNOMED CT [id number]) PSxHx:Arthroscopy x 2 left knee last being prior to [place]. 1988 Fam Hx: Father COPD blind macular degeneration Mother diabetes and cataracts. Soc Hx: MARITAL STATUS - [place] FROM January TO Apr Service Connected Disabilities with % Eligibility: SERVICE CONNECTED 50% to 100% VERIFIED Total S/C %: 100 MOOD DISORDER 70% S/C TINNITUS 10% S/C ASTHMA,BRONCHIAL 30% S/C LIMITED MOTION OF THE JAW 0% S/C LIMITED FLEXION OF KNEE 10% S/C ALL: CATS MEDS: Active Outpatient Medications (including Supplies): ACETAMINOPHEN 500MG TAB TAKE TWO TABLETS BY MOUTH TWICE ACTIVE DAILY NEEDED Indication: FOR PAIN ALBUTEROL 90MCG (CFC-F) 200D ORAL INHL INHALE 2 PUFFS BY ACTIVE (S) MOUTH FOUR TIMES DAILY NEEDED Indication: FOR BRONCHOSPASM ALBUTEROL SO4 0.083% INHL 3ML INHALE 1 AMPULE IN NEBULIZER ACTIVE FOUR TIMES DAILY NEEDED FOR BREATHING Indication: FOR ASTHMA ATTACK AMLODIPINE BESYLATE 5MG TAB TAKE ONE TABLET BY MOUTH ONCE ACTIVE DAILY FOR BLOOD PRESSURE/HEART, DO NOT TAKE WITH GRAPEFRUIT JUICE Indication: FOR HIGH BLOOD PRESSURE ATORVASTATIN CALCIUM 40MG TAB TAKE ONE-HALF TABLET BY ACTIVE MOUTH ONCE DAILY Indication: FOR HIGH CHOLESTEROL CHOLECALCIF 25MCG (D3-1,000UNIT) TAB TAKE ONE TABLET BY ACTIVE MOUTH ONCE DAILY FOR VITAMIN SUPPLEMENTATION Indication: FOR VITAMIN D DEFICIENCY IBUPROFEN 800MG TAB TAKE ONE TABLET BY MOUTH THREE TIMES ACTIVE DAILY NEEDED TAKE WITH FOOD Indication: FOR PAIN LIDOCAINE 5% PATCH APPLY 1 PATCH TOPICALLY ONCE DAILY ACTIVE (LEAVE PATCH ON FOR 12 HOURS, THEN REMOVE PATCH) Indication: FOR NERVE PAIN MULTIVITAMIN/MINERALS CAP/TAB TAKE ONE CAP/TAB BY MOUTH ACTIVE ONCE DAILY Indication: FOR VITAMINS NICOTINE 14MG/24HR PATCH APPLY 1 PATCH TO SKIN ONCE DAILY ACTIVE (REMOVE OLD PATCH BEFORE APPLYING NEW PATCH) Indication: FOR SMOKING CESSATION NICOTINE POLACRILEX 4MG MINI LOZENGE DISSOLVE 1 LOZENGE BY ACTIVE MOUTH SIX TIMES A DAY NEEDED Indication: FOR NICOTINE REPLACEMENT QUETIAPINE FUMARATE 100MG TAB TAKE ONE TABLET BY MOUTH AT ACTIVE BEDTIME AND TAKE ONE TABLET AT BEDTIME NEEDED AND TAKE ONE TABLET AT BEDTIME NEEDED Indication: SCHIZOAFFECTIVE BIPOLAR/ SLEEP TRAZODONE HCL 100MG TAB TAKE ONE TABLET BY MOUTH AT ACTIVE BEDTIME AND TAKE ONE-HALF TABLET AT BEDTIME NEEDED Indication: SLEEP Non-VA OMEPRAZOLE 20MG EC CAP 20MG BY MOUTH EVERY MORNING ACTIVE 30 MINUTES BEFORE BREAKFAST Indication: FOR GASTROESOPHAGEAL REFLUX DISEASE 14 Total Medications No Active Remote Medications for this patient ROS: Constitutional - Denies fever or chills, night sweats, or unexplained weight loss. Head/Eyes/Ears/Neck- Denies headaches, dizziness, visual changes. Cardiovascular - Denies chest pain/palpitations, lower extremity swelling. Respiratory - Denies shortness of breath, or cough. GI - Denies nausea, vomiting, or loss of bowel fx/control. - Denies urinary difficulties or loss of bladder function. Musculoskeletal - See HPI. Neuro - See HPI. Psychiatric - See PMHx. Denies mood swings or change in behavior. Sleep - Denies nocturnal pain or excessive daytime fatigue. Skin/integuments - Denies rashes, lesions, or skin breakdown in the extremities. All other systems reviewed and are negative. PHYSICAL EXAMINATION: Vitals in chart. GEN: WD, WN. Awake, alert, cooperative with exam. In NAD. PSYCH: Good eye contact. Normal mood. Appropriately concerned. CVS: Extremities warm/well perfused. No lower extremity edema appreciated. PULM: Breathing unlabored, no accessory muscle use. ABD: Nondistended. EXTREMITIES: No cyanosis or edema of bilateral upper and lower extremities. SKIN: No rashes, lesions, or skin breakdown over exposed areas. MUSCULOSKELETAL/NEURO EXAM: Posterior medial femoral condyle. No joint line tenderness to palpation. He has flexion of 140 degrees to terminal extension. Lateralization of the patella significant. Tight lateral retinaculum. He has soft endpoint with left [place], negative pivot shift. No atrophy identified. No effusion redness or warmth. Calves soft nontender. Gait: Fairly normal, mildly symmetric, shortened swing phase. Able to perform tandem walk and heel/toe walk. Labs: Collection DT Spec WBC HGB HCT PLT K+/Pot Sodium HGBA1c 07/06/2024 14:09 SERUM 4.8 139 07/06/2024 14:09 BLOOD 4.9 07/06/2024 14:09 BLOOD 8.69 16.3 47.3 282 03/19/2023 10:09 BLOOD 8.12 15.3 45.7 207 03/19/2023 10:09 SERUM 4.9 138 Collection DT Spec GLUCOSE CREATIN AST ALT T BILI ALK YOUNG CHOL 07/06/2024 14:09 SERUM 251 H 07/06/2024 14:09 SERUM 90 1.04 21 34 0.4 95 03/31/2023 07:00 SERUM 11 19 0.4 72 03/19/2023 10:09 SERUM 125 H 0.88 12 16 0.5 63 03/18/2023 07:00 SERUM 10 16 0.3 64 Collection DT Spec LDL-c HDL TRIG TSH B12 SR- HIV Ag/ 07/06/2024 14:09 SERUM 171 H 66 H 70 03/18/2023 07:00 SERUM 605 02/12/2023 07:00 SERUM 120 104 H 80 1.49 176 L 09/24/2022 13:46 SERUM NON-REACTIVE 09/24/2022 13:46 SERUM 127 65 H 51 CHEM 7 TREND LAB CUMULATIVE SELECTED Collection [...] 137 4.8 99 L 29 81 14 Liver Function Tests Collection DT Spec AST ALT ALK YOUNG ALBUMIN T BILI T. PROT 07/06/2024 14:09 SERUM 21 34 95 4.4 0.4 7.4 HEMOGLOBIN A1C TREND Collection DT Spec HGBA1c 07/06/2024 14:09 BLOOD 4.9 02/12/2023 07:00 BLOOD 4.7 Diagnostic Studies: Left knee demonstrates medial and lateral meniscal [...] No suprapatellar knee joint effusion is identified. ASSESSMENT/PLAN: Patient is a 49-year-old with chondrocalcinosis, severe lateral patellar chondromalacia, loose bodies. The giving way is infrequent. The pain is more associated with mechanical issues and corticosteroid injection is not likely to make significant improvement. Will initiate a course of physical therapy for VMO strengthening and ideally medialization of the patella. The catching sensation that he is experiencing is much more likely associated with loose bodies and meniscal degeneration. would like to go the route of repeat arthroscopy if possible. Follow-up to be arranged in 2 months to determine efficacy of PT. Joint replacement is likely to be necessary in the future but ideally this would be at a later time given age. He is still quite functional and does most of what he wishes to do. FOLLOW-UP: 2 months Potential risks and side effects of any medication(s) prescribed today was reviewed with [place]. Patient had many excellent questions, which I answered to the best of my ability and to patient's apparent satisfaction. MDM: 40 minutes which includes reviewing records, evaluating patient, documenting in medical record, educating, counseling and coordinating care. Medication Reconciliation: Outpatient: Has the patient been [...] whether with a VA or non-VA provider. JLV Link Data on this list may not be complete. Please check JLV. Allergies/ADRs (Tool #5) FACILITY ALLERGY/ADR -------- [facility] NO KNOWN ALLERGIES [facility] CATS [facility] TUBERCULIN,PURIFIED PROTEIN DERIVATIVE [place] [facility] [place] [facility] CATS Med Recon NoGlossary (Tool #1) INCLUDED IN THIS LIST: Alphabetical list of active outpatient prescriptions dispensed from this [place] (local) and dispensed from another [place] or [place] facility (remote) as well as inpatient orders (local pending and active), local clinic medications, locally documented non-VA medications, and local prescriptions that have or been discontinued in the past 90 days. Non-VA Meds Last Documented On: Jul 27, 2024 NOTE The display of VA prescriptions dispensed from another VA or DoD facility (remote) is limited to active outpatient prescription entries matched to National Drug File at the originating site and may not include some items such as investigational drugs, compounds, etc. NOT INCLUDED IN THIS LIST: Medications self-entered by the patient into personal health records (i.e. [employer]) are NOT included in this list. Non-VA medications documented outside this [place], remote inpatient orders (regardless of status) and remote clinic medications are NOT included in this list. The patient and provider must always discuss medications the patient is taking, regardless of where the medication was dispensed or obtained. OUTPT ACETAMINOPHEN 500MG TAB (Status = Discontinued) TAKE TWO TABLETS BY MOUTH TWICE DAILY NEEDED Rx# [id number] Last Released: 08/25/24 Qty/Days Supply: 100/ Rx Expiration Date: 06/10/25 Refills Remainin Indication: FOR PAIN OUTPT ACETAMINOPHEN 500MG TAB (Status = Active) TAKE TWO TABLETS BY MOUTH TWICE DAILY NEEDED FOR PAIN Rx# [id number] Last Released: 10/05/24 Qty/Days Supply: 100 Rx Expiration Date: 09/21/25 Refills Remainin Indication: FOR PAIN OUTPT ALBUTEROL 90MCG (CFC-F) 200D ORAL INHL (Status = Active/Suspended) INHALE 2 PUFFS BY MOUTH FOUR TIMES DAILY NEEDED Rx# [id number] Last Released: 08/25/24 Qty/Days Supply: Rx Expiration Date: 06/10/25 Refills Remainin Indication: FOR BRONCHOSPASM OUTPT ALBUTEROL SO4 0.083% INHL 3ML (Status = Active) INHALE 1 AMPULE IN NEBULIZER FOUR TIMES DAILY NEEDED FOR ASTHMA ATTACK FOR BREATHING Rx# [id number] Last Released: 09/20/24 Qty/Days Supply: 60/30 Rx Expiration Date: 09/21/25 Refills Remainin Indication: FOR ASTHMA ATTACK OUTPT AMLODIPINE BESYLATE 5MG TAB (Status = Active) TAKE ONE TABLET BY MOUTH ONCE DAILY FOR BLOOD PRESSURE/HEART, DO NOT TAKE WITH GRAPEFRUIT JUICE Rx# [id number] Last Released: 08/25/24 Qty/Days Supply: 90 Rx Expiration Date: 06/10/25 Refills Remainin Indication: FOR HIGH BLOOD PRESSURE OUTPT ATORVASTATIN CALCIUM 40MG TAB (Status = Active) TAKE ONE-HALF TABLET BY MOUTH ONCE DAILY FOR HIGH CHOLESTEROL Rx# [id number] Last Released: 09/20/24 Qty/Days Supply: 45 Rx Expiration Date: 09/21/25 Refills Remainin Indication: FOR HIGH CHOLESTEROL OUTPT CHOLECALCIF 25MCG (D3-1,000UNIT) TAB (Status = Active) TAKE ONE TABLET BY MOUTH ONCE DAILY FOR VITAMIN D DEFICIENCY FOR VITAMIN SUPPLEMENTATION Rx# [id number] Last Released: 09/20/24 Qty/Days Supply: 90 Rx Expiration Date: 09/21/25 Refills Remainin Indication: FOR VITAMIN D DEFICIENCY OUTPT IBUPROFEN 800MG TAB (Status = Active) TAKE ONE TABLET BY MOUTH THREE TIMES DAILY NEEDED FOR PAIN TAKE WITH FOOD Rx# [id number] Last Released: 09/20/24 Qty/Days Supply: 200/ Rx Expiration Date: 09/21/25 Refills Remainin Indication: FOR PAIN OUTPT INDOMETHACIN 50MG CAP (Status = Discontinued) TAKE ONE CAPSULE BY MOUTH TWICE DAILY NEEDED FOR GOUT Rx# [id number] Last Released: 08/18/24 Qty/Days Supply: 60 Rx Expiration Date: 07/02/25 Refills Remainin Indication: FOR GOUT OUTPT LIDOCAINE 5% PATCH (Status = Active) APPLY 1 PATCH TOPICALLY ONCE DAILY FOR NERVE PAIN (LEAVE PATCH ON FOR 12 HOURS, THEN REMOVE PATCH) Rx# [id number] Last Released: 09/09/24 Qty/Days Supply: Rx Expiration Date: 07/29/25 Refills Remainin Indication: FOR NERVE PAIN OUTPT MULTIVITAMIN/MINERALS CAP/TAB (Status = Active) TAKE ONE CAP/TAB BY MOUTH ONCE DAILY Rx# [id number] Last Released: 08/25/24 Qty/Days Supply: 100 Rx Expiration Date: 06/10/25 Refills Remainin Indication: FOR VITAMINS OUTPT NICOTINE 14MG/24HR PATCH (Status = Active) APPLY 1 PATCH TO SKIN ONCE DAILY FOR SMOKING CESSATION (REMOVE OLD PATCH BEFORE APPLYING NEW PATCH) Rx# [id number] Last Released: 09/20/24 Qty/Days Supply: Rx Expiration Date: 09/21/25 Refills Remainin Indication: FOR SMOKING CESSATION OUTPT NICOTINE POLACRILEX 4MG MINI LOZENGE (Status = Active) DISSOLVE 1 LOZENGE BY MOUTH SIX TIMES A DAY NEEDED FOR NICOTINE REPLACEMENT Rx# [id number] Last Released: 09/20/24 Qty/Days Supply: Rx Expiration Date: 09/21/25 Refills Remainin Indication: FOR NICOTINE REPLACEMENT Non-VA OMEPRAZOLE 20MG EC CAP TAKE 1 CAPSULE BY MOUTH EVERY MORNING 30 MINUTES BEFORE BREAKFAST Patient wants to buy from Non-[place] pharmacy. Indication: FOR GASTROESOPHAGEAL REFLUX DISEASE OUTPT QUETIAPINE FUMARATE 100MG TAB (Status = Active) TAKE ONE TABLET BY MOUTH AT BEDTIME AND TAKE ONE TABLET AT BEDTIME NEEDED AND TAKE ONE TABLET AT BEDTIME NEEDED SCHIZOAFFECTIVE BIPOLAR/ SLEEP Rx# [id number] Last Released: 08/23/24 Qty/Days Supply: Rx Expiration Date: 07/29/25 Refills Remainin Indication: SCHIZOAFFECTIVE BIPOLAR/ SLEEP OUTPT TRAZODONE HCL 100MG TAB (Status = Active) TAKE ONE TABLET BY MOUTH AT BEDTIME AND TAKE ONE-HALF TABLET AT BEDTIME NEEDED SLEEP Rx# [id number] Last Released: 08/23/24 Qty/Days Supply: Rx Expiration Date: 07/29/25 Refills Remainin Indication: SLEEP SUPPLIES /brown/ CHESTER PABLO [facility] Signed: 11/01/2024 08:54 [place] PABLO [facility] [facility]
== END 2024-11-12 22:29 | disposition left against medical advice (07) ==
PROVIDERS: Emergency Provider Emergency Medicine
DX: H57.13 Ocular pain, bilateral (principal)
CPT/HCPCS: 99281

== ENCOUNTER 2025-04-29 21:44 | Emergency (ER) | payer OTHER, SELFPAY ==
[2025-04-29 21:55] VITALS: BP 137/90; PULSE 96; RESP 20; TEMP 36.7; O2SAT 96; BMI 23.6
[2025-04-29 22:02] VITALS: BP 137/90; PULSE 96; RESP 20; TEMP 36.7; O2SAT 96
--- NOTE | 2025-04-29 22:26 | ED.ALCOHOL ---
HPI - Alcohol General Chief Complaint: ETOH/Substance Use Stated Complaint: Etoh PTSD Time Seen by Provider: 04/29/25 22:21 Source: patient and EMS Mode of arrival: EMS Limitations: other History of Present Illness ED Provider: Dr. Iris Multani HPI narrative: Patient comes to the emergency room complaining of alcohol intoxication. Per EMS, patient refused vitals, on arrival patient refusing any help. Patient admits that he has been drinking a lot of alcohol. Denies any falls or any injuries. Patient states that other than drinking a lot of alcohol, he is fine. Denies SI or HI Related Data Allergies Allergy/AdvReac Type Severity Reaction Status Date / Time cat dander (cats) Allergy Unknown Cough Verified 04/29/25 22:01 Review of Systems Review of Systems: Constitutional : No Weight loss, No Fever, No Chills, No Night Sweats, No Fatigue, No Malaise ENT/Mouth : No Hearing loss, No Ear Pain, No Nasal Congestion, No Sinus Pain, No Hoarseness, No sore throat, No Rhinorrhea, No Swallowing Difficulty Eyes: No Eye Pain, No Swelling, No Redness, No Foreign Body, No Discharge, No Vision Changes Cardiovascular : No Chest Pain, No SOB, No Dyspnea on Exertion, No Orthopnea, No Edema, No Palpitations Respiratory : No Cough, No Sputum, No Wheezing, No Smoke Exposure, No Dyspnea Gastrointestinal : No Nausea, No Vomiting, No Diarrhea, No Constipation, No abdominal Pain, No Hematochezia, No Melena Genitourinary : no irregular bleeding, No Dysuria, No Urinary Frequency, No Hematuria, No Urinary Incontinence, No Urgency, No Flank Pain, No Urinary Flow Changes, No Hesitancy Musculoskeletal : No joint pain, No Myalgias, No Joint Swelling Skin : No Skin Lesions, No rash Neuro : No Weakness, No Numbness, No Paresthesias, No Loss of Consciousness, No Dizziness, No Headache Psych : No Anxiety/Panic, No Depression, No SI/HI/AH/VH, admits to heavily drinking alcohol today Heme/Lymph: No Bruising, No Bleeding,No Lymphadenopathy Endocrine : No Polyuria, No Polydipsia, No Temperature Intolerance PMFSH Past Medical History Medical History Alcohol abuse Social History Social History Advance Directives: No Advance Directives Information Provided: Yes Physical Exam ED Exam Exam: Appearance: Alert. No acute distress, slurring his words, patient is intoxicated Eyes: Pupils equal, round and reactive to light. ENT: Pharynx normal. Neck: Normal inspection. Neck supple. No lymph nodes noted. No crepitus CVS: Normal heart rate and rhythm. Pulses normal. Normal S1 and S2 Respiratory: No respiratory distress. Breath sounds normal. No Wheezing. No rales Abdomen: Soft and nontender. No rigidity. No distention. Skin: Skin warm and dry. Normal skin color. Normal skin turgor. Extremities: No lower extremity edema. No Lacerations. No Rash Neuro: Oriented X 3. No motor deficit. No sensory deficit. Moving all extremities. Patient is starting his words, patient intoxicated, otherwise moving extremities within normal limits, cranial nerves 2-12 grossly intact Psych: calm, refusing vitals, redirectable Vital Signs: Vital Signs - 24 hr 04/29/25 21:55 04/29/25 22:02 04/30/25 03:47 Temperature 98.1 F 98.1 F 97.7 F Pulse Rate 96 96 93 Respiratory Rate 20 20 14 Blood Pressure 137/90 H 137/90 H 109/60 Pulse Oximetry 96 96 93 Oxygen Delivery Method Room Air Room Air Room Air BMI result Body Mass Index 23.6 Course Course Course Narrative: Patient coming in 12 in her intoxication. Patient denies SI or HI, denies polysubstance abuse. Patient denies any lab work vitals Physician observation started at 22:29 Medical Decision Making Medical Decision Making [facility] Narrative: This time, 06:30, patient is awake, alert and oriented x3, no acute distress, steady on his feet and ambulating. Patient denies SI or HI Declined detox Patient states that he feels much better and would like to be discharged home At this time, 06:30, we are stopping physician observation Differential Diagnosis Differential Diagnoses: The differential diagnosis associated with the presentation includes (Alcohol intoxication, polysubstance abuse, depression) Admission/Observation Consideration of admission/observation: Escalation of care including admission/observation considered (Patient is under physician observation waiting to become more sober.) Medications Administered Generic Name Dose Route Start Last Admin Trade Name Freq PRN Reason Stop Dose Admin Nicotine Polacrilex 2 mg 04/30/25 03:02 04/30/25 03:11 Nicotine Polacrilex 2 Mg Gum BUCCAL 2 mg Q2H PRN Administration Nicotine Cravings Critical Care Time Critical Care Time Critical Care Time: Yes Total Critical Care Time: 35 Attestation: I have personally provided critical care time. Time includes review of lab data, radiology results, discussion with consultants, and monitoring for potential decompensation. Intervention performed as documented. Discharge Plan Discharge Clinical Impression: Alcoholic intoxication Patient Disposition: Home, Self-Care Instructions: Alcohol Intoxication (ED) Additional Instructions: Please follow-up with your primary care physician tomorrow. If you have any worsening or new symptoms, please return to the emergency room or call 911 Alcohol use disorder You were seen in the Emergency Department today for treatment of alcohol use disorder.? You may have been given medications to help with your withdrawal symptoms.? Please do not drink alcohol with them. This is very dangerous and can cause respiratory depression or other adverse reactions depending on the medication. If you would like to cut down or stop your alcohol use please consider calling our outpatient Addiction Treatment office:? [facility] ([id number] [address] [place] [address] You have also been given a list of treatment providers in the area that can assist as well.? If you experience seizures, vomiting blood, black stools, falls, severe headache, chest pain, fevers, trouble breathing, hallucinations or any other concerns you need to call 911 or seek immediate care. Please stay hydrated. Print Language: Gambian
--- OUTSIDE RECORDS SUMMARY | 2025-04-29 22:27 | XMS_ITS | Encounter Summary ---
Author Organization [facility] Address [address] [place] [id number] Phone Care Team Providers Care Diaper Machine Tender Name Role Phone Pcp, Unknown Primary Care Provider Unavailortiz pike Pcp, Unknown Primary Care Provider Melo Antonio MD Primary Care Provider Encounter Details Date Type Department Care Team (Late st Contact Info) Description 08/05/2024 Procedure Pass OR Admitting Dept - Virtual Department [address] [place] [address] Social History Tobacco Use Types Packs/Day Years Used Date Smoking Tobacco: Every Day Cigarettes Smokeless Tobacco: Never Alcohol Use Standard Drinks/Week Comments Never 0 (1 standard drink = 0.6 oz pur e alcohol) Education Answer Date Recorded Are you interested in more education? Not on isaias e 01/25/2023 Are you concerned about learning? Not on file 01/25/2023 No 01/25/2023 No 01/25/2023 Digital Access Answer Date Recorded No 02/15/2023 No 02/15/2023 Reliable internet access at home? Not on file 02/15/2023 Device with a working camera? Not on file Intimate Partner Violence Answer Date R ecorded Are you denied basic needs s uch as food, clothing, or medical care? No 01/29/2023 In the past 12 months have y ou been in a relationship with a person who hurts, threatens, or tries to control you? No 01/29/2023 Are you denied basic needs s uch as food, clothing, or medical care? No 01/29/2023 In the past 12 months have y ou been in a relationship with a person who hurts, threatens, or tries to control you? No 01/29/2023 Sex and Gender Information Value Date Recorded Sex Assigned at Male 11/16/2024 11:01 PM EST Legal Sex Male 11:52 AM EDT Gender Identity Male 11/16/2024 11:01 PM EST Sexual Orientation Not on file documented as of this encounter Plan of Treatment Not on file documented as of this encounter Visit Diagnoses Not on filedocumented in this encounter Care Teams Diaper Machine Tender Relationship Specialty Start Date End Date Pcp, Unknown PCP - General 11/17/24 11/26/24 Pcp, Unknown PCP - General 11/27/24 11/27/24 Melo Gore MD [address] [place] [id number] PCP - General Internal Medicine 11/28/24 documented as of this encounter Additional Source Comments The information contained in this document represents components of the legal health record. It is not the complete legal health record.[facility]
[2025-04-30 03:47] VITALS: BP 109/60; PULSE 93; RESP 14; TEMP 36.5; O2SAT 93
[2025-04-30 06:33] VITALS: BP 109/60; PULSE 93; RESP 14; TEMP 36.5; O2SAT 93
== END 2025-04-30 06:33 | disposition home or self-care (01) ==
PROVIDERS: Emergency Provider Emergency Medicine
DX: F10.129 Alcohol abuse with intoxication, unspecified (principal)
CPT/HCPCS: 99283